=== PATIENT | female | born 1965 | race Two or more races ===

== ENCOUNTER → 2020-02-18 12:34 | Outpatient (BNVA) | payer MEDICAID, SELFPAY | PROVIDERS: PCP Internal Medicine; Referring Provider Internal Medicine; Visit Provider Nurse Practitioner | DX: K59.04 Chronic idiopathic constipation (principal); K21.9 Gastro-esophageal reflux disease without esophagitis; K31.84 Gastroparesis | CPT/HCPCS: 99213 ==

== ENCOUNTER 2020-02-19 18:49 | Observation (INO) | payer MEDICAID, SELFPAY ==
[2020-02-19 19:08] VITALS: BP 141/91; PULSE 81; RESP 18; TEMP 37.1; O2SAT 98; BMI 38.9
[2020-02-19] MEDS: ondansetron HCL 4 MG/2 ML VIAL IVPUSH (20:58)
[2020-02-19 21:00] VITALS: BP 172/90; PULSE 65; RESP 18; TEMP 36.6; O2SAT 99
[2020-02-19 21:01] LABS: MANUAL DIFF FLAG NO
[2020-02-19 21:02] LABS: Basophils Percent Auto 0.4 % (0-2); Eosinophils Percent Auto 0.2 % (0-4); Hematocrit 45.1 % (37-47); Hemoglobin 14.8 g/dl (12.0-16.0); Imm Gran Abs Auto 0.04 X10*3/uL (0.00-0.03); Imm Gran Pct Auto 0.4 % (0.0-0.4); Lymphocytes Absolute Auto 1.8 X10*3/uL (1.2-4.9); Lymphocytes Percent Auto 17.1 % (20-40); Mean Corpuscular HGB Conc 32.8 g/dl (31.0-35.0); Mean Corpuscular Hemoglobin 30.7 pg (27.0-33.0); Mean Corpuscular Volume 93.6 fL (80-98); Mean Platelet Volume 11.6 fL (9.4-12.3); Monocytes Absolute Auto 0.8 X10*3/uL (0.1-1.2); Monocytes Percent Auto 7.6 % (2-11); Neutrophils Absolute Auto 7.7 X10*3/uL (2.0-8.3); Neutrophils Percent Auto 74.3 % (45-73); Platelet Count 227 X10*3/uL (160-400); Red Blood Count 4.82 X10*6/uL (4.20-5.50); Red Cell Distribution Width 13.6 % (11.0-16.0); White Blood Count 10.4 X10*3/uL (4.8-10.8)
--- NOTE | 2020-02-19 21:03 | CT_ITS ---
EXAMINATION: CT ABDOMEN AND PELVIS WITHOUT CONTRAST CLINICAL INFORMATION: 52-year-old female with left-sided flank pain. COMPARISON: Renal ultrasound 01/03/[address] abdomen pelvis 05/02/2019 TECHNIQUE: Multidetector volumetric imaging was performed from the superior aspect of the liver through the pubic symphysis. Sagittal and coronal reformatted images were obtained on the technologist's workstation. This CT examination was performed using dose optimization techniques as appropriate, variously including the following: *Automated exposure control *Adjustment of mA and/or kV according to patient size (this includes techniques or standardized protocols for targeted exams where dose is matched to indication/reason for exam; i.e. extremities or head) *Use of iterative reconstruction technique DLP: 818 mGy-cm FINDINGS: Visualized lung bases demonstrate mild dependent atelectasis. The liver is normal in size but demonstrates diffusely decreased attenuation. The gallbladder is normal in appearance. The pancreas, spleen and adrenal glands are unremarkable. There is mild to moderate left-sided hydronephrosis secondary to a 9 mm calculus located within the proximal left ureter. This stone demonstrates Hounsfield units of approximately 1200 and is located approximately 17 cm from the posterior skin surface. There are a few other calcifications within the left kidney, the largest located within the midpole and measures 1.4 cm. There are several 2 to 3 mm nonobstructing calculi of the right kidney. There is no right-sided hydronephrosis. Normal caliber loops of small and large bowel. Normal appendix. Surgical changes consistent with prior umbilical hernia repair. Nonaneurysmal abdominal aorta which demonstrates mild to moderate atherosclerotic disease. The bladder is normally distended and normal in appearance. Unremarkable CT appearance of the uterus. No gross free pelvic fluid. No inguinal lymphadenopathy. Moderate to severe degenerative changes of the spine. CT/CT abdomen pelvis wo con IMPRESSION: 1. Mild to moderate left-sided hydronephrosis secondary to a 9 mm calculus within the proximal left ureter. 2. Nonobstructing bilateral renal calculi. No right-sided hydronephrosis. 3. Diffusely decreased liver attenuation suggesting hepatic steatosis. Correlation with liver enzymes recommended.
--- NOTE | 2020-02-19 21:03 | ED.ABDPAIN ---
HPI - Abdominal Pain General Chief Complaint: Abdominal Pain Stated Complaint: flank pain Time Seen by Provider: 02/19/20 21:03 Source: patient and compressor battery pellets Mode of arrival: ambulatory Limitations: no limitations History of Present Illness MD elicited complaint: flank pain Pertinent past history: kidney stones Onset (ago): day(s) (1) Pain Consistency: constant Location: L flank Severity: severe Quality: stabbing Radiation: L flank Migration to: suprapubic Exacerbating factors: nothing Relieving factors: nothing Context: history of similar episodes Associated symptoms: nausea and vomiting Related Data Home Medications Medication Instructions Recorded Confirmed bisacodyl 5 mg tablet,delayed 10 mg PO BEDTIME 02/15/20 02/15/20 release lansoprazole 30 mg capsule,delayed 30 mg PO DAILY 02/15/20 02/15/20 release magnesium oxide 400 mg PO DAILY 02/15/20 02/15/20 metoclopramide HCl 5 mg tablet 5 mg PO TIDWMEAL tab 02/15/20 02/15/20 Previous Rx's Medication Instructions Recorded linaclotide 290 mcg capsule 290 mcg PO DAILY 30 Days #30 cap 02/05/20 Allergies Allergy/AdvReac Type Severity Reaction Status Date / Time cephalexin [From KEFLEX] Allergy Intermediate RASH Verified 02/19/20 19:07 Penicillins Allergy Intermediate RASH Verified 02/19/20 19:07 diazepam [From VALIUM] Allergy Unknown ? REACTION Verified 02/19/20 19:07 penicillin V Allergy Unknown rash Verified 02/19/20 19:07 Jakob Rosenthal Allergy Unknown rash Uncoded 06/15/19 00:00 Review of Systems Review of Systems Constitutional : No Weight loss, No Fever, No Chills ENT/Mouth : No sore throat, No Rhinorrhea Eyes: No Swelling, No Redness Cardiovascular : No Chest Pain, No SOB, NoEdema Respiratory : No Cough, No Sputum, No Wheezing Gastrointestinal : Positive Nausea, Positive Vomiting, no Diarrhea, positive abdominal Pain, No Hematochezia, No Melena Genitourinary : No Dysuria, No Urinary Frequency, No Hematuria, pos Urgency Musculoskeletal : No joint pain, No Myalgias, No Joint Swelling Skin : No Skin Lesions, No rash Neuro : No Weakness, No Numbness, No Dizziness, No Headache Psych : No Anxiety/Panic, No Depression Heme/Lymph: No Bruising, No Lymphadenopathy Endocrine : No Polyuria, No Polydipsia All other systems reviewed and are negative. Physical Exam Vital Signs: Vital Signs: Vital Signs Temp Pulse Resp BP Pulse Ox 02/19/20 22:03 69 20 145/93 H 98 02/19/20 22:01 18 02/19/20 21:09 18 02/19/20 21:00 97.8 F 65 18 172/90 H 99 02/19/20 19:08 98.7 F 81 18 141/91 H 98 Body Mass Index 38.9 Appearance: Alert. Oriented X3. Mild acute distress. In pain Eyes: Pupils equal, round and reactive to light. ENT: Pharynx normal. Neck: Normal inspection. Neck supple. CVS: Normal heart rate and rhythm. Pulses normal. Respiratory: No respiratory distress. Breath sounds normal. Abdomen: Soft and L flank ttp Skin: Skin warm and dry. Normal skin color. Normal skin turgor. Extremities: No lower extremity edema. No calf ttp Neuro: Oriented X 3. No motor deficit. No sensory deficit. Course Course Course Narrative: L sided 9mm prox left ureter stone - moderate hydro, still in pain repeat dilaudid stone will consult Dr. Medrano for likely admit. Dr. Medrano to admit MDM - Abdominal Pain MDM Narrative Medical decision making narrative: 54 yo female with hx of renal colic s/p lithotripsy here with L flank pain that feels like a stone at this time will need labs, UA, IV morphine for pain, CT scan for renal colic dispo per results and findings Differential Diagnosis Differential diagnosis: Likely calculus of kidney and diverticulitis Lab Data Result diagrams: 02/19/20 20:52 02/19/20 20:52 Labs: Lab Results 02/19/20 02/19/20 02/19/20 Range/Units 20:52 20:52 20:52 WBC 10.4 (4.8-10.8) X10*3/uL RBC 4.82 (4.20-5.50) X10*6/uL Hgb 14.8 (12.0-16.0) g/dl Hct 45.1 (37-47) % MCV 93.6 (80-98) fL MCH 30.7 (27.0-33.0) pg MCHC 32.8 (31.0-35.0) g/dl RDW 13.6 (11.0-16.0) % Plt Count 227 (160-400) X10*3/uL MPV 11.6 (9.4-12.3) fL Immature Gran % (Auto) 0.4 (0.0-0.4) % Neut % (Auto) 74.3 H (45-73) % Lymph % (Auto) 17.1 L (20-40) % [place] % (Auto) 7.6 (2-11) % Eos % (Auto) 0.2 (0-4) % Baso % (Auto) 0.4 (0-2) % Lymph # (Auto) 1.8 (1.2-4.9) X10*3/uL [place] # (Auto) 0.8 (0.1-1.2) X10*3/uL Eos # (Auto) 0.0 (0.0-0.4) X10*3/uL Baso # (Auto) 0.0 (0.0-0.2) X10*3/uL Abs Immat Gran (auto) 0.04 H (0.00-0.03) X10*3/uL Absolute Neuts (auto) 7.7 (2.0-8.3) X10*3/uL Absolute Nucleated RBC 0.000 (0.0-0.012) X10*3/uL Nucleated RBC % (auto) 0.0 (0.0-0.2) /100WBC Hold Blue Top SEE NOTE Sodium 142 (135-145) mmol/L Potassium 3.7 (3.3-5.1) mmol/l Chloride 105 (96-108) mmol/L Carbon Dioxide 26 (22-29) mmol/L Anion Gap 15 (12-20) BUN 14 (9-16) mg/dL Creatinine 1.35 (0.5-1.4) mg/dL Estim Creat Clear Calc 54.2 Estimated GFR 41 Random Glucose 165 H (60-115) mg/dL Calcium 8.7 (8.4-10.2) mg/dL Total Bilirubin 0.6 (0.0-1.0) mg/dL Direct Bilirubin (0.0-0.5) mg/dL AST 41 H (5-31) U/L ALT 59 H (0-31) U/L Alkaline Phosphatase 101 (39-117) U/L Total Protein 6.9 (6.5-8.0) g/dL Albumin 4.4 (3.5-5.0) g/dL Lipase 45 (8-78) U/L Urine Color Urine Appearance Urine pH (5.0-8.0) Ur Specific [place] (1.005-1.025) Urine Protein (NEG-TRACE) MG/DL Urine Glucose (UA) (NEG) MG/DL Urine Ketones (NEG) MG/DL Urine Blood (NEG) Urine Nitrite (NEG) Ur Leukocyte Esterase (NEG) Urine RBC (0) /HPF Urine WBC (0-4) /HPF Ur Squamous Epith Cells /LPF Urine Bacteria /LPF Urine Mucus /LPF 02/19/20 02/19/20 Range/Units 20:52 21:00 WBC (4.8-10.8) X10*3/uL RBC (4.20-5.50) X10*6/uL Hgb (12.0-16.0) g/dl Hct (37-47) % MCV (80-98) fL MCH (27.0-33.0) pg MCHC (31.0-35.0) g/dl RDW (11.0-16.0) % Plt Count (160-400) X10*3/uL MPV (9.4-12.3) fL Immature Gran % (Auto) (0.0-0.4) % Neut % (Auto) (45-73) % Lymph % (Auto) (20-40) % [place] % (Auto) (2-11) % Eos % (Auto) (0-4) % Baso % (Auto) (0-2) % Lymph # (Auto) (1.2-4.9) X10*3/uL [place] # (Auto) (0.1-1.2) X10*3/uL Eos # (Auto) (0.0-0.4) X10*3/uL Baso # (Auto) (0.0-0.2) X10*3/uL Abs Immat Gran (auto) (0.00-0.03) X10*3/uL Absolute Neuts (auto) (2.0-8.3) X10*3/uL Absolute Nucleated RBC (0.0-0.012) X10*3/uL Nucleated RBC % (auto) (0.0-0.2) /100WBC Hold Blue Top Sodium (135-145) mmol/L Potassium (3.3-5.1) mmol/l Chloride (96-108) mmol/L Carbon Dioxide (22-29) mmol/L Anion Gap (12-20) BUN (9-16) mg/dL Creatinine (0.5-1.4) mg/dL Estim Creat Clear Calc Estimated GFR Random Glucose (60-115) mg/dL Calcium (8.4-10.2) mg/dL Total Bilirubin 0.5 (0.0-1.0) mg/dL Direct Bilirubin 0.2 (0.0-0.5) mg/dL AST 42 H (5-31) U/L ALT 59 H (0-31) U/L Alkaline Phosphatase 101 (39-117) U/L Total Protein 6.8 (6.5-8.0) g/dL Albumin 4.3 (3.5-5.0) g/dL Lipase (8-78) U/L Urine Color YELLOW Urine Appearance CLEAR Urine pH 5.5 (5.0-8.0) Ur Specific [place] >= 1.030 H (1.005-1.025) Urine Protein NEG (NEG-TRACE) MG/DL Urine Glucose (UA) NEG (NEG) MG/DL Urine Ketones NEG (NEG) MG/DL Urine Blood 1+ H (NEG) Urine Nitrite NEG (NEG) Ur Leukocyte Esterase NEG (NEG) Urine RBC 10-14 H (0) /HPF Urine WBC 5-9 H (0-4) /HPF Ur Squamous Epith Cells 1+ /LPF Urine Bacteria 2+ /LPF Urine Mucus 2+ /LPF Critical Care Time Critical Care Time Critical Care Time: Yes Total Critical Care Time: 35 Attestation: repeat IV pain medications, consult to Urology I personally attest to this time spent taking care of the patient Discharge Plan Discharge Clinical Impression: Ureterolithiasis Patient Disposition: Admitted As Inpatient [facility] Past Medical History Attestation statement: The following information was validated with the patient. Medical History (Updated 02/19/20 @ 22:22 by Ofe Muñoz DO) Fibromyalgia Osteoarthritis Renal colic Surgical History (Updated 02/19/20 @ 21:10 by Ofe Muñoz DO) H/O lithotripsy History of esophagogastroduodenoscopy (EGD) Hx of colonoscopy Family History Family History (Updated 02/18/20 @ 12:45 by CATY Quigley) Father Diabetes mellitus Hypercholesteremia Heart attack HTN (hypertension) Mother Diabetes mellitus HTN (hypertension) Heart attack Hypercholesteremia Cardiovascular disease Brother Liver cancer Brother Pancreatic cancer Brother Lymphoma Sister Cervical cancer Sister Cirrhosis of liver Family/Other Cancer Family/Other Ovarian cancer Social History Social History Alcohol intake: never Smoking Status: Never smoker Smoked in Last 30 Days: No Use of substances other than those prescribed or required for medical reasons: No Advance Directives: No Advance Directives Information Provided: Yes
[2020-02-19 21:09] VITALS: RESP 18
[2020-02-19 21:09] LABS: Glucose Urine UA NEG (NEG); Leukocyte Esterase Urine NEG (NEG); Nitrite Urine NEG (NEG); PH 5.5 (5.0-8.0); Specific Gravity - Urine >= 1.030 (1.005-1.025); Urine Blood 1+ (NEG); Urine Ketones NEG (NEG); Urine Protein NEG (NEG-TRACE)
[2020-02-19] MEDS: Ketorolac Tromethamine 30 MG/ML VIAL IVPUSH (21:09)
[2020-02-19] MEDS: Morphine Sulfate 4 MG/ML CARTRIDGE IVPUSH (21:09)
[2020-02-19 21:18] LABS: Appearance Urine CLEAR; Bacteria Urine 2+ /LPF; Color Urine YELLOW; Mucus Urine 2+ /LPF; Squamous Epithelial Cell Urine 1+ /LPF; UACC CULT YES
[2020-02-19 21:30] LABS: Alanine Aminotransferase 59 U/L (0-31); Albumin Level 4.3 g/dL (3.5-5.0); Albumin Level 4.4 g/dL (3.5-5.0); Alkaline Phosphatase 101 U/L (39-117); Anion Gap 15 (12-20); Aspartate Amino Transferase 41 U/L (5-31); Aspartate Amino Transferase 42 U/L (5-31); Bilirubin Direct 0.2 mg/dL (0.0-0.5); Bilirubin Total 0.5 mg/dL (0.0-1.0); Bilirubin Total 0.6 mg/dL (0.0-1.0); Blood Urea Nitrogen 14 mg/dL (9-16); Calcium 8.7 mg/dL (8.4-10.2); Carbon Dioxide 26 mmol/L (22-29); Chloride 105 mmol/L (96-108); Creatinine Clr Calc Pharmacy 54.2; Estimated Glomerular Filt Rate 41; Glucose Random 165 mg/dL (60-115); Lipase 45 U/L (8-78); Potassium 3.7 mmol/l (3.3-5.1); Sodium 142 mmol/L (135-145); Total Protein 6.8 g/dL (6.5-8.0); Total Protein 6.9 g/dL (6.5-8.0)
[2020-02-19 22:01] VITALS: RESP 18
[2020-02-19] MEDS: HYDROmorphone HCl 1 MG/ML SYRINGE IVPUSH ×2 (22:01→23:36)
[2020-02-19 22:03] VITALS: BP 145/93; PULSE 69; RESP 20; O2SAT 98
[2020-02-19 23:36] VITALS: BP 139/85; PULSE 91; RESP 16; O2SAT 98
[2020-02-20] VITALS (8 sets, daily range): BP systolic 119–154; BP diastolic 75–89; PULSE 72–92; RESP 16–20; TEMP 36–37.1; O2SAT 94–99; BMI 38.9
[2020-02-20 00:26] LABS: SARS COV2 PCR INHOUSE NEGATIVE (Negative)
--- NOTE | 2020-02-20 03:03 | PC.NURSE ---
Pt states she is comfortable, sleeping prior to this rn awakening her. awaiting room assigment, pt aware and agreeable to plan of care.
[2020-02-20] MEDS: Morphine Sulfate 2 MG/ML CARTRIDGE IVPUSH (08:08)
[2020-02-20] MEDS: ondansetron HCL 4 MG/2 ML VIAL IVPUSH (08:08)
--- NOTE | 2020-02-20 08:38 | PC.NURSE ---
dr. clark at bedside pt aware of plan of care.
--- NOTE | 2020-02-20 08:40 | PC.NURSE ---
ATTEMPTED TO CALL REPORT, WAITING FOR
--- NOTE | 2020-02-20 08:41 | P.HPGS_ITS ---
History of Present Illness History of Present Illness Chief complaint: flank pain/LEFT RENAL STONE\ Narrative: Milady Ruiz is a 54 year old female - 48 hour history of nausea and vomiting. Left-sided flank pain. Unable to be maintained with oral pain medications in the emergency room. Known stone hist ory. Will be admitted for stone intervention. Pain 8/10. Minimal relief. CT scan 9 mm proximal left ureteric stone. 9 mm upper pole stone. Review of Systems Constitutional: Constitutional: Denies chills and Denies fever(s) Cardiovascular: Cardiovascular: Reports no additional cardiovascular complaints and Denies syncope Respiratory: Respiratory: Denies cough Gastrointestinal: Gastrointestinal: Reports abdominal pain, Reports GI cramping, Denies heartburn, Reports nausea and Reports vomiting Genitourinary: Genitourinary: Reports as per HPI and Denies change in libido Neurologic: Denies syncope Psychiatric: Psychiatric: Denies change in libido Endocrine: Endocrine: Denies change in libido [facility] Past Medical History Medical History (Updated 02/20/20 @ 08:45 by Alan Medrano MD) Fibromyalgia Osteoarthritis Renal colic Family History Family History (Updated 02/18/20 @ 12:45 by CATY Quigley) Father Diabetes mellitus Hypercholesteremia Heart attack HTN (hypertension) Mother Diabetes mellitus HTN (hypertension) Heart attack Hypercholesteremia Cardiovascular disease Brother Liver cancer Brother Pancreatic cancer Brother Lymphoma Sister Cervical cancer Sister Cirrhosis of liver Family/Other Cancer Family/Other Ovarian cancer Surgical History Surgical History (Updated 02/19/20 @ 21:10 by Ofe Muñoz DO) H/O lithotripsy History of esophagogastroduodenoscopy (EGD) Hx of colonoscopy Social History Social History Alcohol intake: never Smoking Status: Never smoker Smoked in Last 30 Days: No Use of substances other than those prescribed or required for medical reasons: No Advance Directives: No Advance Directives Information Provided: Yes Meds Allergies Allergy/AdvReac Type Severity Reaction Status Date / Time cephalexin [From KEFLEX] Allergy Intermediate RASH Verified 02/19/20 19:07 Penicillins Allergy Intermediate RASH Verified 02/19/20 19:07 diazepam [From VALIUM] Allergy Unknown ? REACTION Verified 02/19/20 19:07 penicillin V Allergy Unknown rash Verified 02/19/20 19:07 Jakob Rosenthal Allergy Unknown rash Uncoded 06/15/19 00:00 Home Medications Medication Instructions Recorded Confirmed Type metoclopramide HCl 5 mg tablet 5 mg PO TIDWMEAL tab 02/15/20 02/19/20 History cholecalciferol (vitamin D3) 25 mcg PO DAILY 02/19/20 02/19/20 History [Vitamin D3] clonazepam 1 mg PO BID 02/19/20 02/19/20 History duloxetine [Cymbalta] 60 mg PO DAILY 02/19/20 02/19/20 History fluticasone propionate 2 spray INTRANASAL DAILY 02/19/20 02/19/20 History folic acid 1 mg PO DAILY 02/19/20 02/19/20 History lansoprazole [Prevacid] 30 mg PO DAILY 02/19/20 02/19/20 History linaclotide [Linzess] 290 mcg PO QAM 02/19/20 02/19/20 History loratadine 10 mg PO DAILY 02/19/20 02/19/20 History magnesium 15 mg PO BID 02/19/20 02/19/20 History meclizine 12.5 mg PO TID PRN 02/19/20 02/19/20 History multivitamin [Multi-Vitamin] 1 tab PO DAILY 02/19/20 02/19/20 History quetiapine [Seroquel] 100 mg PO BID 02/19/20 02/19/20 History topiramate [Topamax] 100 mg PO BID 02/19/20 02/19/20 History zinc gluconate 30 mg PO DAILY 02/19/20 02/19/20 History Physical Exam Vital Signs: Vital Signs: Vital Signs Temp Pulse Resp BP Pulse Ox 02/20/20 08:08 16 02/20/20 02:46 98.7 F 92 16 119/78 97 02/19/20 23:36 91 16 139/85 98 02/19/20 22:03 69 20 145/93 H 98 02/19/20 22:01 18 02/19/20 21:09 18 02/19/20 21:00 97.8 F 65 18 172/90 H 99 02/19/20 19:08 98.7 F 81 18 141/91 H 98 Body Mass Index 38.9 Const: General: cooperative, healthy appearing, comfortable and no acute distress Orientation/consciousness: patient oriented x3 HENMT: Face and sinus: Yes normal facial exam Mouth: moist mucous membranes Neck: Neck: Yes normal visual inspection, Yes full ROM and Yes trachea midline Chest: Chest palpation & inspection: normal inspection of the chest Resp: Effort & Inspection: normal respiratory effort, able to speak in complete sentences and no respiratory distress GI: Inspection: Yes normal to inspection Back/Spine/Pelvis: Cervical Spine: normal cervical lordosis Thoracic/Lumbar Spine: thoracic and lumbar spine normal to inspection Skin: General skin exam: no rashes or lesions noted Neuro: General: patient oriented x3, gait normal, tone normal and moves all extremities Extrem: General: Yes normal to inspection and Yes capillary refill normal Results Results Labs: Short CBC 02/19/20 Range/Units 20:52 WBC 10.4 (4.8-10.8) X10*3/uL Hgb 14.8 (12.0-16.0) g/dl Hct 45.1 (37-47) % Plt Count 227 (160-400) X10*3/uL BMP 02/19/20 20:52 Sodium 142 Potassium 3.7 Chloride 105 Carbon Dioxide 26 BUN 14 Creatinine 1.35 Calcium 8.7 Liver Function 02/19/20 02/19/20 Range/Units 20:52 20:52 Total Bilirubin 0.6 0.5 (0.0-1.0) mg/dL Direct Bilirubin 0.2 (0.0-0.5) mg/dL AST 41 H 42 H (5-31) U/L ALT 59 H 59 H (0-31) U/L Alkaline Phosphatase 101 101 (39-117) U/L Albumin 4.4 4.3 (3.5-5.0) g/dL Urine 02/19/20 Range/Units 21:00 Urine Color YELLOW Urine Appearance CLEAR Urine pH 5.5 (5.0-8.0) Ur Specific [place] >= 1.030 H (1.005-1.025) Urine Protein NEG (NEG-TRACE) MG/DL Urine Glucose (UA) NEG (NEG) MG/DL There is mild to moderate left-sided hydronephrosis secondary to a 9 mm calculus located within the proximal left ureter. This stone demonstrates Hounsfield units of approximately 1200 and is located approximately 17 cm from the posterior skin surface. There are a few other calcifications within the left kidney, the largest located within the midpole and measures 1.4 cm. Assessment and Plan (1) Ureterolithiasis: Problem details: 9 mm left proximal stone. 1.4 cm upper pole stone. Status: Acute Discussed with patient. plan for cystoscopy, left retrograde and stent placement remain NPO
--- NOTE | 2020-02-20 09:12 | PC.NURSE ---
PT COMPLAINING OF PAIN. RN AWARE.
--- NOTE | 2020-02-20 09:33 | PC.NURSE ---
REPORT CALLED TO CIARA BASURTO
[2020-02-20] MEDS: Ketorolac Tromethamine 15 MG/ML VIAL IV (10:30)
--- NOTE | 2020-02-20 10:39 | PM.IMCN ---
History of Present Illness Data of Consult Service Date: 02/20/20 <Himanshu Fu MD - Last Filed: 02/28/20 13:59> Requesting physician: Alan Medrano <Himanshu Fu MD - Last Filed: 02/28/20 13:59> Primary Care Provider: Jayda Mcelroy MD <Himanshu Fu MD - Last Filed: 02/28/20 13:59> HPI Reason for consult: Medical management <Himanshu Fu MD - Last Filed: 02/28/20 13:59> 54 year female with class 2 obesity, GERD, gastroparesis, history of kidney stone who presented with left sided abdominal pain of a day duration. Pain is severe 02/01. CT of abdomen show mild left sided hydronephrosis and 9 mm calculus within the proximal left ureter. Urology plan for cystoscopy, left retrograde and stent placement. <Himanshu Fu MD - Last Filed: 02/28/20 13:59> Review of Systems Cardiovascular: Cardiovascular: Denies syncope <Himanshu Fu MD - Last Filed: 02/28/20 13:59> Genitourinary: Comments: left flank pain <Himanshu Fu MD - Last Filed: 02/28/20 13:59> Neurologic: Denies syncope <Himanshu Fu MD - Last Filed: 02/28/20 13:59> COUNT INCLUDES THE [facility] Medical History: Medical History Class 2 obesity Fibromyalgia GERD (gastroesophageal reflux disease) Osteoarthritis Renal colic <Himanshu Fu MD - Last Filed: 02/28/20 13:59> Family History: Family History Father Diabetes mellitus Hypercholesteremia Heart attack HTN (hypertension) Mother Diabetes mellitus HTN (hypertension) Heart attack Hypercholesteremia Cardiovascular disease Brother Liver cancer Brother Pancreatic cancer Brother Lymphoma Sister Cervical cancer Sister Cirrhosis of liver Family/Other Cancer Family/Other Ovarian cancer <Himanshu Fu MD - Last Filed: 02/28/20 13:59> Surgical History: Surgical History H/O lithotripsy History of esophagogastroduodenoscopy (EGD) Hx of colonoscopy <Himanshu Fu MD - Last Filed: 02/28/20 13:59> Social History: Social History Household Members: Family Alcohol intake: never Smoking Status: Former smoker Second Hand Smoke Exposure: No <Himanshu Fu MD - Last Filed: 02/28/20 13:59> Meds Allergies/Adverse reactions: Allergies Allergy/AdvReac Type Severity Reaction Status Date / Time cephalexin [From KEFLEX] Allergy Intermediate RASH Verified 02/19/20 19:07 Penicillins Allergy Intermediate RASH Verified 02/19/20 19:07 diazepam [From VALIUM] Allergy Unknown ? REACTION Verified 02/19/20 19:07 penicillin V Allergy Unknown rash Verified 02/19/20 19:07 Jakob Rosenthal Allergy Unknown rash Uncoded 06/15/19 00:00 <Himanshu Fu MD - Last Filed: 02/28/20 13:59> Home medications: Home Medications Medication Instructions Recorded Confirmed Type metoclopramide HCl 5 mg tablet 5 mg PO TIDWMEAL tab 02/15/20 02/19/20 History Linzess 290 mcg PO QAM 02/19/20 02/19/20 History cholecalciferol (vitamin D3) 25 mcg PO DAILY 02/19/20 02/19/20 History [Vitamin D3] clonazepam 1 mg PO BID 02/19/20 02/19/20 History duloxetine [Cymbalta] 60 mg PO DAILY 02/19/20 02/19/20 History fluticasone propionate 2 spray INTRANASAL DAILY 02/19/20 02/19/20 History folic acid 1 mg PO DAILY 02/19/20 02/19/20 History loratadine 10 mg PO DAILY 02/19/20 02/19/20 History magnesium 15 mg PO BID 02/19/20 02/19/20 History meclizine 12.5 mg PO TID PRN 02/19/20 02/19/20 History multivitamin 1 tab PO DAILY 02/19/20 02/19/20 History quetiapine [Seroquel] 100 mg PO BID 02/19/20 02/19/20 History topiramate [Topamax] 100 mg PO BID 02/19/20 02/19/20 History zinc gluconate 30 mg PO DAILY 02/19/20 02/19/20 History <Himanshu Fu MD - Last Filed: 02/28/20 13:59> Physical Exam Vital Signs and Narrative: Vital Signs: Last Vital Signs Temp 96.8 F 02/20/20 08:00 Pulse 83 02/20/20 08:00 Resp 16 02/20/20 08:08 BP 139/89 02/20/20 08:00 Pulse Ox 98 02/20/20 08:00 <Himanshu Fu MD - Last Filed: 02/28/20 13:59> Results Labs Labs: Laboratory Tests 02/19/20 02/19/20 02/19/20 20:52 20:52 20:52 WBC 10.4 RBC 4.82 Hgb 14.8 Hct 45.1 MCV 93.6 MCH 30.7 MCHC 32.8 RDW 13.6 Plt Count 227 MPV 11.6 Immature Gran % (Auto) 0.4 Neut % (Auto) 74.3 H Lymph % (Auto) 17.1 L [place] % (Auto) 7.6 Eos % (Auto) 0.2 Baso % (Auto) 0.4 Lymph # (Auto) 1.8 [place] # (Auto) 0.8 Eos # (Auto) 0.0 Baso # (Auto) 0.0 Abs Immat Gran (auto) 0.04 H Absolute Neuts (auto) 7.7 Absolute Nucleated RBC 0.000 Nucleated RBC % (auto) 0.0 Hold Blue Top SEE NOTE Sodium 142 Potassium 3.7 Chloride 105 Carbon Dioxide 26 Anion Gap 15 BUN 14 Creatinine 1.35 Estim Creat Clear Calc 54.2 Estimated GFR 41 Random Glucose 165 H Calcium 8.7 Total Bilirubin 0.6 Direct Bilirubin AST 41 H ALT 59 H Alkaline Phosphatase 101 Total Protein 6.9 Albumin 4.4 Lipase 45 Urine Color Urine Appearance Urine pH Ur Specific [place] Urine Protein Urine Glucose (UA) Urine Ketones Urine Blood Urine Nitrite Ur Leukocyte Esterase Urine RBC Urine WBC Ur Squamous Epith Cells Urine Bacteria Urine Mucus Coronavirus (PCR) 02/19/20 02/19/20 02/19/20 20:52 21:00 23:27 WBC RBC Hgb Hct MCV MCH MCHC RDW Plt Count MPV Immature Gran % (Auto) Neut % (Auto) Lymph % (Auto) [place] % (Auto) Eos % (Auto) Baso % (Auto) Lymph # (Auto) [place] # (Auto) Eos # (Auto) Baso # (Auto) Abs Immat Gran (auto) Absolute Neuts (auto) Absolute Nucleated RBC Nucleated RBC % (auto) Hold Blue Top Sodium Potassium Chloride Carbon Dioxide Anion Gap BUN Creatinine Estim Creat Clear Calc Estimated GFR Random Glucose Calcium Total Bilirubin 0.5 Direct Bilirubin 0.2 AST 42 H ALT 59 H Alkaline Phosphatase 101 Total Protein 6.8 Albumin 4.3 Lipase Urine Color YELLOW Urine Appearance CLEAR Urine pH 5.5 Ur Specific [place] >= 1.030 H Urine Protein NEG Urine Glucose (UA) NEG Urine Ketones NEG Urine Blood 1+ H Urine Nitrite NEG Ur Leukocyte Esterase NEG Urine RBC 10-14 H Urine WBC 5-9 H Ur Squamous Epith Cells 1+ Urine Bacteria 2+ Urine Mucus 2+ Coronavirus (PCR) NEGATIVE <Himanshu Fu MD - Last Filed: 02/28/20 13:59> Assessment and Plan (1) GERD (gastroesophageal reflux disease): Status: Acute <Himanshu Fu MD - Last Filed: 02/28/20 13:59> 54/F with kidney stone 1. Kidney stone--cystoscopy, left retrograde and stent placement by uro. Pain management 2. Fibromyalgia--continue home meds 3. GERD not on meds 4. Class 2 obesity--advise weigh loss. <Himanshu Fu MD - Last Filed: 02/28/20 13:59>
[2020-02-20] MEDS: levoFLOXacin 500 MG TABLET PO (12:14)
--- NOTE | 2020-02-20 12:48 | HO.ANESPROP2 ---
[facility] Past Medical History Medical History Class 2 obesity Fibromyalgia GERD (gastroesophageal reflux disease) Osteoarthritis Renal colic Family History Family History Father Diabetes mellitus Hypercholesteremia Heart attack HTN (hypertension) Mother Diabetes mellitus HTN (hypertension) Heart attack Hypercholesteremia Cardiovascular disease Brother Liver cancer Brother Pancreatic cancer Brother Lymphoma Sister Cervical cancer Sister Cirrhosis of liver Family/Other Cancer Family/Other Ovarian cancer Surgical History Surgical History H/O lithotripsy History of esophagogastroduodenoscopy (EGD) Hx of colonoscopy Social History Social History Household Members: Family Alcohol intake: never Smoking Status: Former smoker Meds Allergies Allergy/AdvReac Type Severity Reaction Status Date / Time cephalexin [From KEFLEX] Allergy Intermediate RASH Verified 02/19/20 19:07 Penicillins Allergy Intermediate RASH Verified 02/19/20 19:07 diazepam [From VALIUM] Allergy Unknown ? REACTION Verified 02/19/20 19:07 penicillin V Allergy Unknown rash Verified 02/19/20 19:07 Jakob Rosenthal Allergy Unknown rash Uncoded 06/15/19 00:00 Home Medications Medication Instructions Recorded Confirmed Type metoclopramide HCl 5 mg tablet 5 mg PO TIDWMEAL tab 02/15/20 02/19/20 History cholecalciferol (vitamin D3) 25 mcg PO DAILY 02/19/20 02/19/20 History [Vitamin D3] clonazepam 1 mg PO BID 02/19/20 02/19/20 History duloxetine [Cymbalta] 60 mg PO DAILY 02/19/20 02/19/20 History fluticasone propionate 2 spray INTRANASAL DAILY 02/19/20 02/19/20 History folic acid 1 mg PO DAILY 02/19/20 02/19/20 History lansoprazole [Prevacid] 30 mg PO DAILY 02/19/20 02/19/20 History linaclotide [Linzess] 290 mcg PO QAM 02/19/20 02/19/20 History loratadine 10 mg PO DAILY 02/19/20 02/19/20 History magnesium 15 mg PO BID 02/19/20 02/19/20 History meclizine 12.5 mg PO TID PRN 02/19/20 02/19/20 History multivitamin [Multi-Vitamin] 1 tab PO DAILY 02/19/20 02/19/20 History quetiapine [Seroquel] 100 mg PO BID 02/19/20 02/19/20 History topiramate [Topamax] 100 mg PO BID 02/19/20 02/19/20 History zinc gluconate 30 mg PO DAILY 02/19/20 02/19/20 History Exam Exam Date and Time: February 20, 2020 1248 Height,Weight and Vital Signs: Height 5 ft 3 in Weight 99.79 kg Last Vital Signs Temp 97.9 F 02/20/20 12:23 Pulse 76 02/20/20 12:23 Resp 20 02/20/20 12:23 BP 141/80 H 02/20/20 12:23 Pulse Ox 98 02/20/20 12:23 Pertinent Lab Results Pertinent Lab Results: Laboratory Tests 02/19/20 02/19/20 02/19/20 20:52 20:52 20:52 WBC 10.4 RBC 4.82 Hgb 14.8 Hct 45.1 MCV 93.6 MCH 30.7 MCHC 32.8 RDW 13.6 Plt Count 227 MPV 11.6 Immature Gran % (Auto) 0.4 Neut % (Auto) 74.3 H Lymph % (Auto) 17.1 L [place] % (Auto) 7.6 Eos % (Auto) 0.2 Baso % (Auto) 0.4 Lymph # (Auto) 1.8 [place] # (Auto) 0.8 Eos # (Auto) 0.0 Baso # (Auto) 0.0 Abs Immat Gran (auto) 0.04 H Absolute Neuts (auto) 7.7 Absolute Nucleated RBC 0.000 Nucleated RBC % (auto) 0.0 Hold Blue Top SEE NOTE Sodium 142 Potassium 3.7 Chloride 105 Carbon Dioxide 26 Anion Gap 15 BUN 14 Creatinine 1.35 Estim Creat Clear Calc 54.2 Estimated GFR 41 Random Glucose 165 H Calcium 8.7 Total Bilirubin 0.6 Direct Bilirubin AST 41 H ALT 59 H Alkaline Phosphatase 101 Total Protein 6.9 Albumin 4.4 Lipase 45 Urine Color Urine Appearance Urine pH Ur Specific [place] Urine Protein Urine Glucose (UA) Urine Ketones Urine Blood Urine Nitrite Ur Leukocyte Esterase Urine RBC Urine WBC Ur Squamous Epith Cells Urine Bacteria Urine Mucus Coronavirus (PCR) 02/19/20 02/19/20 02/19/20 20:52 21:00 23:27 WBC RBC Hgb Hct MCV MCH MCHC RDW Plt Count MPV Immature Gran % (Auto) Neut % (Auto) Lymph % (Auto) [place] % (Auto) Eos % (Auto) Baso % (Auto) Lymph # (Auto) [place] # (Auto) Eos # (Auto) Baso # (Auto) Abs Immat Gran (auto) Absolute Neuts (auto) Absolute Nucleated RBC Nucleated RBC % (auto) Hold Blue Top Sodium Potassium Chloride Carbon Dioxide Anion Gap BUN Creatinine Estim Creat Clear Calc Estimated GFR Random Glucose Calcium Total Bilirubin 0.5 Direct Bilirubin 0.2 AST 42 H ALT 59 H Alkaline Phosphatase 101 Total Protein 6.8 Albumin 4.3 Lipase Urine Color YELLOW Urine Appearance CLEAR Urine pH 5.5 Ur Specific [place] >= 1.030 H Urine Protein NEG Urine Glucose (UA) NEG Urine Ketones NEG Urine Blood 1+ H Urine Nitrite NEG Ur Leukocyte Esterase NEG Urine RBC 10-14 H Urine WBC 5-9 H Ur Squamous Epith Cells 1+ Urine Bacteria 2+ Urine Mucus 2+ Coronavirus (PCR) NEGATIVE Airway Mallampati Class: II TM Dist: >3cm Neck ROM: Full Assessment and Plan Assessment Anesthesia Assessment: Anesthesia Plan Discussed and Chart Reviewed Final Anesthetic Review NPO: Yes ASA Class: III Final Preanesthetic Review: No Changes in Pt Med Stat, Meds/Allgs Chart Reviewed, Consent Obtained/Reviewed and Anes Risks/Benef Reviewed Patient Risk: Intermediate Procedure Risk: Low Assessment/Block/Sedation in SS: Assess/Block/Sedation-SS Anesthetic Plan Anesthetic Plan: GA and MAC: Disposition: Standard PACU
--- NOTE | 2020-02-20 13:03 | MHC.SHP ---
Pre-Procedural Eval Section A The patient is an INPATIENT: Yes Changes since office visit: No Cold of Flu in the past 2 weeks, No New Medical Problems, No Changes in Medication and No Patient answered all questions The History & Physical has been completed within 30 days and I have reviewed it.: Yes Section B Chief Complaint: flank pain/LEFT RENAL STONE\ Allergies: Allergies Allergy/AdvReac Type Severity Reaction Status Date / Time cephalexin [From KEFLEX] Allergy Intermediate RASH Verified 02/19/20 19:07 Penicillins Allergy Intermediate RASH Verified 02/19/20 19:07 diazepam [From VALIUM] Allergy Unknown ? REACTION Verified 02/19/20 19:07 penicillin V Allergy Unknown rash Verified 02/19/20 19:07 Jakob Rosenthal Allergy Unknown rash Uncoded 06/15/19 00:00 Plan Patient has been examined and remains a candidate for the planned procedure
--- NOTE | 2020-02-20 13:15 | FL_ITS ---
EXAMINATION: Intraoperative fluoroscopy CLINICAL INFORMATION: Left stent placement COMPARISON: CT abdomen pelvis 02/19/2020 TECHNIQUE: Intraoperative fluoroscopy was provided for use by Dr. Medrano. A total of 1 image was saved to PACS. A radiologist was not present during imaging. Today's dictation is only for administrative purposes to document intraoperative fluoroscopic usage. TOTAL FLUOROSCOPIC TIME: 43 seconds FL/FL guidance in OR FINDINGS~\^^ Intraoperative fluoroscopy provided for use by Dr. Medrano. Please see operative note for detailed findings.
--- NOTE | 2020-02-20 13:50 | PM.OP ---
Brief Operative Note Date of procedure: 02/20/20 Pre-op diagnosis: left ureteric stone Post-op diagnosis: same Procedure: cysto, left retrograde, left stent placment Implants: 6x24 cm stent Surgeon: Alan Medrano MD Anesthesia: MAC Estimated blood loss (mL): 0 Pathology: none sent Condition: stable Disposition: same day
[2020-02-20] MEDS: Phenazopyridine HCL 100 MG TABLET PO (14:20)
[2020-02-20] MEDS: 0.9 % Sodium Chloride 1,000 ML 80 ML IVCONT (15:01)
--- NOTE | 2020-02-20 15:28 | P.OP_ITS ---
Operative Note Operative Note Narrative: PreOperative Diagnosis: left proximal ureteric stone Post Operative Diagnosis: same Procedure: cystoscopy, retrograde, left stent placem Surgeon: Dr Alan Medrano Anesthesia: sedation Indications for procedure: 54-year-old female. Good proximal left 9 mm stone. 1.4 cm stone and kidney. Recommend stent and discharge. Will plan for definitive therapy following stenting and recovery. Procedure: After informed consent was verified patient brought to the operating placed in supine position. Anesthesia administered per protocol. Patient placed in modified dorsal lithotomy position and prepped and draped in sterile fashion. Safety pause time-out performed. Antibiotics being given. Twenty-one Upper Sor[place] cystoscope inserted per urethra. Both ureteric orifices normal position. Bladder normal in its description. Using a ureteric catheter a retrograde examination was performed on the left side. Filling defects seen in the proximal ureter. Sensor guidewire placed without difficulty. Six Upper [place] by 22 cm stent placed with good coil seen in the renal pelvis and in the bladder. Patient tolerated procedure well was extubated in the operating room and transferred in stable condition to the recovery area. Stents 6 Upper [place] by 22 cm left side double J This is the end of the dictation
--- NOTE | 2022-08-24 12:32 | P.DS_ITS ---
DS: Providers Provider Date of Service: 02/20/20 Primary care physician: Jayda Mcelroy MD Admitting clinician: Alan Medrano DS: Diagnosis Discharge Diagnosis (1) Kidney stones: Status: Acute DS: Summary Hospital Course Hospital Course: underwent stenting and discharge Status at Discharge Functional status at discharge: independent ambulation Overall status at discharge: patient is back to baseline Time Spent with Patient Time attestation: Total time managing care of this patient today ____ minutes. Discharge coordination time: Less than 30 minutes Quality: Safe Use of Opioids Does Pt have an Active Cancer Diagnosis on the Problem List?: No Quality: Stroke Does the patient have a stroke diagnosis?: No Physical Exam Vital Signs: Vital Signs: Last Vital Signs Temp 97 F 02/27/20 10:53 Pulse 71 02/27/20 11:22 Resp 16 02/27/20 11:22 BP 120/68 02/27/20 11:22 Pulse Ox 98 02/27/20 11:22 O2 Del Method Room Air 02/27/20 11:22 BMI result Body Mass Index 38.4 DS: Data Data Completed and Pending Completed studies during hospitalization [Text1]: Procedures Dilation of Left Ureter with Intraluminal Device, Via Natural or Artificial Opening Endoscopic (10/26/21) Extirpation of Matter from Left Ureter, Via Natural or Artificial Opening Endoscopic (10/26/21) Fluoroscopy of Left Kidney, Ureter and Bladder (10/26/21) Discharge Plan Discharge Patient Disposition: Home, Self-Care Referrals: Jayda Patiño MD [Primary Care Provider] - Alan Medrano MD [Physician] - 1 Week (1 week stent removal in office) Discharge Medications: Continued meclizine 12.5 mg Tablet 12.5 mg PO TID PRN (Reason: Dizziness) folic acid 1 mg Tablet 1 mg PO DAILY loratadine 10 mg Tablet 10 mg PO DAILY duloxetine [Cymbalta] 60 mg Capsule,Delayed Release(Dr/Ec) 60 mg PO BID No Action meloxicam 15 mg tablet 15 mg PO DAILY Qty: 30 3RF tramadol 50 mg tablet 50 mg PO Q6H PRN (Reason: pain) Qty: 120 2RF magnesium oxide 400 mg (241.3 mg magnesium) tablet 400 mg PO BID 90 Days Qty: 180 0RF magnesium oxide 400 mg (241.3 mg magnesium) tablet 400 mg PO BID 90 Days Qty: 180 0RF clonazepam 0.5 mg tablet 1 tab PO DAILY PRN (Reason: Anxiety) buspirone 5 mg tablet 5 mg PO DAILY cholecalciferol (vitamin D3) [Vitamin D3] 25 mcg (1,000 unit) capsule 1 cap PO DAILY fluticasone propionate 50 mcg/actuation [place],Suspension 2 spray INTRANASAL DAILY Rx Instructions: administer into each nostril topiramate 50 mg tablet 50 mg PO BID pyridoxine (vitamin B6) 100 mg tablet 100 mg PO DAILY 90 Days Qty: 90 1RF sumatriptan succinate 25 mg tablet 5 mg PO ONCE PRN (Reason: Migraine Headache) hydrochlorothiazide 12.5 mg tablet 12.5 mg PO DAILY sennosides [senna] 8.6 mg tablet 17.2 mg PO BID PRN (Reason: for constipation) 90 Days Qty: 120 1RF allopurinol 100 mg tablet 100 mg PO DAILY amitriptyline 25 mg tablet 25 mg PO BEDTIME doxepin 10 mg capsule 10 mg PO BEDTIME lansoprazole 30 mg capsule,delayed release(DR/EC) 30 mg PO DAILY 90 Days Qty: 90 1RF Linzess 290 mcg capsule 290 mcg PO DAILY 90 Days Qty: 90 1RF metoclopramide HCl 5 mg tablet 5 mg PO .TIDAC 90 Days Qty: 270 1RF Discharge Orders: Discharge Order (Routine); Ordered 02/27/20 Ordered By: Alan Medrano Diet: Advance to usual diet Activity on Discharge: As tolerated Patient Instructions: Lithotripsy (DC) Activity Restrictions/Additional Instructions: MARK 02/28/20 Message left to call md if any issues PMarionRMarta Discharge Date/Time: 02/27/20 11:55
== END 2020-02-20 18:15 | disposition home or self-care (01) ==
LOC: HO.ED 22:25 → HO.IMC 02-20 06:22 → HO.S3 02-20 11:13
PROVIDERS: Admitting Provider Urology; Emergency Provider Emergency Medicine; PCP Internal Medicine; Visit Provider Urology
PROC: (CPT 52332; principal; 2020-02-20 13:00)
DX: N13.2 Hydronephrosis with renal and ureteral calculous obstruction (principal); N23 Unspecified renal colic; K31.84 Gastroparesis; E66.9 Obesity, unspecified; M79.7 Fibromyalgia; K21.9 Gastro-esophageal reflux disease without esophagitis; Z68.38 Body mass index [BMI] 38.0-38.9, adult; Z87.891 Personal history of nicotine dependence; Z20.828 Contact with and (suspected) exposure to other viral communicable diseases; Z88.1 Allergy status to other antibiotic agents; Z88.0 Allergy status to penicillin; Z88.8 Allergy status to other drugs, medicaments and biological substances; Z79.899 Other long term (current) drug therapy
CPT/HCPCS: 52332; 36415; 74176; 80053; 80076; 81001; 82248; 83690; 85025; 87086; 87635; 96374; 96375; 96376; 99218; 99284; 99291; C1758; C1769; C2617; J1170; J1885; J2250; J2270; J2405; J3010; Q9967

== ENCOUNTER 2020-02-27 06:50 | Day surgery (SDC) | payer MEDICAID, SELFPAY ==
--- NOTE | 2020-02-26 09:48 | HO.ANESPROP2 ---
Documented by User: Sol Penn 02/26/20 09:49 HPI - Anesthesia Eval Consult details Narrative: 54yo F for Lithotripsy ESW s/p cysto, stent 02/20/20. Anesth record unavailable [facility] Past Medical History Medical History (Updated 02/27/20 @ 10:16 by Antonina Rollins) Class 2 obesity Fibromyalgia GERD (gastroesophageal reflux disease) Osteoarthritis Renal colic Family History Family History Father Diabetes mellitus Hypercholesteremia Heart attack HTN (hypertension) Mother Diabetes mellitus HTN (hypertension) Heart attack Hypercholesteremia Cardiovascular disease Brother Liver cancer Brother Pancreatic cancer Brother Lymphoma Sister Cervical cancer Sister Cirrhosis of liver Family/Other Cancer Family/Other Ovarian cancer Surgical History Surgical History H/O lithotripsy History of esophagogastroduodenoscopy (EGD) Hx of colonoscopy Social History Social History Household Members: Family Alcohol intake: never Smoking Status: Former smoker Second Hand Smoke Exposure: No Use of substances other than those prescribed or required for medical reasons: No Advance Directives: No Advance Directives Information Provided: No Advance Directives on File: No Meds Allergies Allergy/AdvReac Type Severity Reaction Status Date / Time cephalexin [From KEFLEX] Allergy Intermediate RASH Verified 02/19/20 19:07 Penicillins Allergy Intermediate RASH Verified 02/19/20 19:07 diazepam [From VALIUM] Allergy Unknown ? REACTION Verified 02/19/20 19:07 penicillin V Allergy Unknown rash Verified 02/19/20 19:07 Jakob Rosenthal Allergy Unknown rash Uncoded 06/15/19 00:00 Home Medications Medication Instructions Recorded Confirmed Type metoclopramide HCl 5 mg tablet 5 mg PO TIDWMEAL tab 02/15/20 02/19/20 History Linzess 290 mcg PO QAM 02/19/20 02/19/20 History cholecalciferol (vitamin D3) 25 mcg PO DAILY 02/19/20 02/19/20 History [Vitamin D3] clonazepam 1 mg PO BID 02/19/20 02/19/20 History duloxetine [Cymbalta] 60 mg PO DAILY 02/19/20 02/19/20 History fluticasone propionate 2 spray INTRANASAL DAILY 02/19/20 02/19/20 History folic acid 1 mg PO DAILY 02/19/20 02/19/20 History lansoprazole [Prevacid] 30 mg PO DAILY 02/19/20 02/19/20 History loratadine 10 mg PO DAILY 02/19/20 02/19/20 History magnesium 15 mg PO BID 02/19/20 02/19/20 History meclizine 12.5 mg PO TID PRN 02/19/20 02/19/20 History multivitamin 1 tab PO DAILY 02/19/20 02/19/20 History quetiapine [Seroquel] 100 mg PO BID 02/19/20 02/19/20 History topiramate [Topamax] 100 mg PO BID 02/19/20 02/19/20 History zinc gluconate 30 mg PO DAILY 02/19/20 02/19/20 History Exam Exam Date and Time: February 26, 2020 0948 Pertinent Lab Results Pertinent Lab Results: Laboratory Tests 02/19/20 02/19/20 20:52 20:52 WBC 10.4 Hgb 14.8 Hct 45.1 Plt Count 227 Sodium 142 Potassium 3.7 Chloride 105 BUN 14 Creatinine 1.35 Assessment and Plan Assessment Anesthesia Assessment: Chart Reviewed Documented by User: Antonina Rollins 02/27/20 10:16 [facility] Past Medical History Medical History (Updated 02/27/20 @ 10:16 by Antonina Rollins) Class 2 obesity Fibromyalgia GERD (gastroesophageal reflux disease) Osteoarthritis Renal colic Family History Family History Father Diabetes mellitus Hypercholesteremia Heart attack HTN (hypertension) Mother Diabetes mellitus HTN (hypertension) Heart attack Hypercholesteremia Cardiovascular disease Brother Liver cancer Brother Pancreatic cancer Brother Lymphoma Sister Cervical cancer Sister Cirrhosis of liver Family/Other Cancer Family/Other Ovarian cancer Surgical History Surgical History H/O lithotripsy History of esophagogastroduodenoscopy (EGD) Hx of colonoscopy Social History Social History Household Members: Family Alcohol intake: never Smoking Status: Former smoker Second Hand Smoke Exposure: No Use of substances other than those prescribed or required for medical reasons: No Advance Directives: No Advance Directives Information Provided: No Advance Directives on File: No Meds Allergies Allergy/AdvReac Type Severity Reaction Status Date / Time cephalexin [From KEFLEX] Allergy Intermediate RASH Verified 02/19/20 19:07 Penicillins Allergy Intermediate RASH Verified 02/19/20 19:07 diazepam [From VALIUM] Allergy Unknown ? REACTION Verified 02/19/20 19:07 penicillin V Allergy Unknown rash Verified 02/19/20 19:07 Jakob Rosenthal Allergy Unknown rash Uncoded 06/15/19 00:00 Home Medications Medication Instructions Recorded Confirmed Type metoclopramide HCl 5 mg tablet 5 mg PO TIDWMEAL tab 02/15/20 02/19/20 History Linzess 290 mcg PO QAM 02/19/20 02/19/20 History cholecalciferol (vitamin D3) 25 mcg PO DAILY 02/19/20 02/19/20 History [Vitamin D3] clonazepam 1 mg PO BID 02/19/20 02/19/20 History duloxetine [Cymbalta] 60 mg PO DAILY 02/19/20 02/19/20 History fluticasone propionate 2 spray INTRANASAL DAILY 02/19/20 02/19/20 History folic acid 1 mg PO DAILY 02/19/20 02/19/20 History lansoprazole [Prevacid] 30 mg PO DAILY 02/19/20 02/19/20 History loratadine 10 mg PO DAILY 02/19/20 02/19/20 History magnesium 15 mg PO BID 02/19/20 02/19/20 History meclizine 12.5 mg PO TID PRN 02/19/20 02/19/20 History multivitamin 1 tab PO DAILY 02/19/20 02/19/20 History quetiapine [Seroquel] 100 mg PO BID 02/19/20 02/19/20 History topiramate [Topamax] 100 mg PO BID 02/19/20 02/19/20 History zinc gluconate 30 mg PO DAILY 02/19/20 02/19/20 History
[2020-02-26 12:24] VITALS: BMI 38.4
--- NOTE | 2020-02-27 07:00 | XR_ITS ---
EXAMINATION: XR ABDOMEN KUB CLINICAL INDICATION: Left renal stone. COMPARISON: CT dated 02/19/2020 TECHNIQUE: AP view of the abdomen. FINDINGS: The previously seen calculus in the left proximal ureter near the UPJ is now situated within a lower pole calyx of the left kidney. This measures 1.2 cm in diameter. There is a 1.4 cm calculus within a calyx in the interpolar region which is unchanged. A left double-J ureteral stent is in place. No additional renal or ureteral calculi. Nondilated bowel gas pattern. Multiple phleboliths are present in the pelvis. Lung bases are clear. There is degenerative spondylosis of the lower lumbar spine with marked multilevel facet arthropathy mild osteoarthritis in the hips. XR/XR KUB IMPRESSION: Double-J left ureteral stent appears appropriately positioned. Previously seen left UPJ calculus is now situated over a left lower pole renal calyx.
[2020-02-27 08:25] VITALS: BP 154/97; PULSE 100; RESP 16; TEMP 36.1; O2SAT 100
[2020-02-27] MEDS: Lactated Ringers 1,000 ML 100 ML IVCONT (08:40)
--- NOTE | 2020-02-27 09:38 | P.HPSUR_ITS ---
Pre-Procedural Eval Section B Chief Complaint: Proxial Uretreal Stone Details of Present Illness: left renal stone Relevant Family History (Specify if Yes): No Relevant Social History: None Present Medications: see Short Stay Collaborative assessment Medical History: No relevant PMH History of Previous Operations: Relevant previous surgery/procedure and date(s) Allergies: Allergies Allergy/AdvReac Type Severity Reaction Status Date / Time cephalexin [From KEFLEX] Allergy Intermediate RASH Verified 02/19/20 19:07 Penicillins Allergy Intermediate RASH Verified 02/19/20 19:07 diazepam [From VALIUM] Allergy Unknown ? REACTION Verified 02/19/20 19:07 penicillin V Allergy Unknown rash Verified 02/19/20 19:07 Jakob Rosenthal Allergy Unknown rash Uncoded 06/15/19 00:00 Review of Systems Sugical H&P ROS: Negative: Constitution, Cardiovascular, Respiratory, N eurological, Psychiatric, Hem-Onc, Allergic/Immunologic, Gastrointestinal, Genitourinary, Musculoskeletal, Integumentary, Endocrine and Eyes/Ears/Nose/Throat Exam Surgical H&P Exam: Normal: HEENT, Normal: Heart, Normal: Lungs, Normal: Extremities, Normal: Abdomen, Normal: Skin and Normal: Neurological Plan Diagnosis/Plan: Unchanged Patient has been examined and remains a candidate for the planned procedure
--- NOTE | 2020-02-27 10:16 | HO.ANESPROP2 ---
[facility] Past Medical History Medical History Class 2 obesity Fibromyalgia GERD (gastroesophageal reflux disease) Osteoarthritis Renal colic Family History Family History Father Diabetes mellitus Hypercholesteremia Heart attack HTN (hypertension) Mother Diabetes mellitus HTN (hypertension) Heart attack Hypercholesteremia Cardiovascular disease Brother Liver cancer Brother Pancreatic cancer Brother Lymphoma Sister Cervical cancer Sister Cirrhosis of liver Family/Other Cancer Family/Other Ovarian cancer Surgical History Surgical History H/O lithotripsy History of esophagogastroduodenoscopy (EGD) Hx of colonoscopy Social History Social History Household Members: Family Alcohol intake: never Smoking Status: Former smoker Second Hand Smoke Exposure: No Use of substances other than those prescribed or required for medical reasons: No Advance Directives: No Advance Directives Information Provided: No Advance Directives on File: No Meds Allergies Allergy/AdvReac Type Severity Reaction Status Date / Time cephalexin [From KEFLEX] Allergy Intermediate RASH Verified 02/19/20 19:07 Penicillins Allergy Intermediate RASH Verified 02/19/20 19:07 diazepam [From VALIUM] Allergy Unknown ? REACTION Verified 02/19/20 19:07 penicillin V Allergy Unknown rash Verified 02/19/20 19:07 Jakob Rosenthal Allergy Unknown rash Uncoded 06/15/19 00:00 Home Medications Medication Instructions Recorded Confirmed Type metoclopramide HCl 5 mg tablet 5 mg PO TIDWMEAL tab 02/15/20 02/19/20 History Linzess 290 mcg PO QAM 02/19/20 02/19/20 History cholecalciferol (vitamin D3) 25 mcg PO DAILY 02/19/20 02/19/20 History [Vitamin D3] clonazepam 1 mg PO BID 02/19/20 02/19/20 History duloxetine [Cymbalta] 60 mg PO DAILY 02/19/20 02/19/20 History fluticasone propionate 2 spray INTRANASAL DAILY 02/19/20 02/19/20 History folic acid 1 mg PO DAILY 02/19/20 02/19/20 History lansoprazole [Prevacid] 30 mg PO DAILY 02/19/20 02/19/20 History loratadine 10 mg PO DAILY 02/19/20 02/19/20 History magnesium 15 mg PO BID 02/19/20 02/19/20 History meclizine 12.5 mg PO TID PRN 02/19/20 02/19/20 History multivitamin 1 tab PO DAILY 02/19/20 02/19/20 History quetiapine [Seroquel] 100 mg PO BID 02/19/20 02/19/20 History topiramate [Topamax] 100 mg PO BID 02/19/20 02/19/20 History zinc gluconate 30 mg PO DAILY 02/19/20 02/19/20 History Exam Exam Date and Time: February 27, 2020 1016 Height,Weight and Vital Signs: Height 5 ft 4 in Weight 101.605 kg Last Vital Signs Temp 96.9 F 02/27/20 08:25 Pulse 100 02/27/20 08:25 Resp 16 02/27/20 08:25 BP 154/97 H 02/27/20 08:25 Pulse Ox 100 02/27/20 08:25 Airway Mallampati Class: IV TM Dist: >3cm Neck ROM: Full Heart: RRR Lungs: CTA
--- NOTE | 2020-02-27 10:18 | HO.ANESPROP2 ---
[facility] Past Medical History Medical History Class 2 obesity Fibromyalgia GERD (gastroesophageal reflux disease) Osteoarthritis Renal colic Family History Family History Father Diabetes mellitus Hypercholesteremia Heart attack HTN (hypertension) Mother Diabetes mellitus HTN (hypertension) Heart attack Hypercholesteremia Cardiovascular disease Brother Liver cancer Brother Pancreatic cancer Brother Lymphoma Sister Cervical cancer Sister Cirrhosis of liver Family/Other Cancer Family/Other Ovarian cancer Surgical History Surgical History H/O lithotripsy History of esophagogastroduodenoscopy (EGD) Hx of colonoscopy Social History Social History Household Members: Family Alcohol intake: never Smoking Status: Former smoker Second Hand Smoke Exposure: No Use of substances other than those prescribed or required for medical reasons: No Advance Directives: No Advance Directives Information Provided: No Advance Directives on File: No Meds Allergies Allergy/AdvReac Type Severity Reaction Status Date / Time cephalexin [From KEFLEX] Allergy Intermediate RASH Verified 02/19/20 19:07 Penicillins Allergy Intermediate RASH Verified 02/19/20 19:07 diazepam [From VALIUM] Allergy Unknown ? REACTION Verified 02/19/20 19:07 penicillin V Allergy Unknown rash Verified 02/19/20 19:07 Jakob Rosenthal Allergy Unknown rash Uncoded 06/15/19 00:00 Home Medications Medication Instructions Recorded Confirmed Type metoclopramide HCl 5 mg tablet 5 mg PO TIDWMEAL tab 02/15/20 02/19/20 History Linzess 290 mcg PO QAM 02/19/20 02/19/20 History cholecalciferol (vitamin D3) 25 mcg PO DAILY 02/19/20 02/19/20 History [Vitamin D3] clonazepam 1 mg PO BID 02/19/20 02/19/20 History duloxetine [Cymbalta] 60 mg PO DAILY 02/19/20 02/19/20 History fluticasone propionate 2 spray INTRANASAL DAILY 02/19/20 02/19/20 History folic acid 1 mg PO DAILY 02/19/20 02/19/20 History lansoprazole [Prevacid] 30 mg PO DAILY 02/19/20 02/19/20 History loratadine 10 mg PO DAILY 02/19/20 02/19/20 History magnesium 15 mg PO BID 02/19/20 02/19/20 History meclizine 12.5 mg PO TID PRN 02/19/20 02/19/20 History multivitamin 1 tab PO DAILY 02/19/20 02/19/20 History quetiapine [Seroquel] 100 mg PO BID 02/19/20 02/19/20 History topiramate [Topamax] 100 mg PO BID 02/19/20 02/19/20 History zinc gluconate 30 mg PO DAILY 02/19/20 02/19/20 History Exam Exam Date and Time: February 27, 2020 1018 Height,Weight and Vital Signs: Height 5 ft 4 in Weight 101.605 kg Last Vital Signs Temp 96.9 F 02/27/20 08:25 Pulse 100 02/27/20 08:25 Resp 16 02/27/20 08:25 BP 154/97 H 02/27/20 08:25 Pulse Ox 100 02/27/20 08:25 Assessment and Plan Assessment Anesthesia Assessment: Anesthesia Plan Discussed, PAT Visit and Chart Reviewed Final Anesthetic Review NPO: Yes ASA Class: III Final Preanesthetic Review: No Changes in Pt Med Stat, Consent Obtained/Reviewed and Anes Risks/Benef Reviewed Patient Risk: Intermediate Procedure Risk: Low Anesthetic Plan Anesthetic Plan: GA Disposition: Standard PACU
--- NOTE | 2020-02-27 10:31 | PM.OP ---
Brief Operative Note Date of procedure: 02/27/20 Pre-op diagnosis: left renal stones Post-op diagnosis: same Procedure: Left ESWL Surgeon: Alan Medrano MD Anesthesia: MAC Estimated blood loss (mL): 0 Pathology: none sent Condition: stable Disposition: same day
--- NOTE | 2020-02-27 10:32 | W.PM.OPN ---
Operative Note Operative Note Narrative: PreOperative Diagnosis: Renal stones Post Operative Diagnosis: Renal stones Procedure: Left ESWL Surgeon: Dr Alan Medrano Anesthesia: mac/sedation Indications for procedure: They understand ESWL may be a staged procedure and subsequent intervention may be required based on imaging after ESWL. They also understand there is a risk of bleeding, infection, damage to adjacent organs. Procedure: After informed consent was verified the patient was brought to the operating room and placed in a supine position. Anesthesia was performed per protocol. Safety pause time-out was performed. Imaging was in the room and laterality confirmed. ESWL was performed. The 1st 500 shocks were performed at 60 hertz. These were performed with increasing power. Once maximum power was reached the rate was increased to 180 hertz. A total of 2500 shocks were given. Fluoroscopy showed stone disintegration. They tolerated procedure well and was transferred to the recovery area upon completion.
[2020-02-27 10:42] VITALS: BP 123/76; PULSE 78; RESP 16; TEMP 36; O2SAT 97
[2020-02-27 10:48] VITALS: BP 124/79; PULSE 79; RESP 16; O2SAT 97
[2020-02-27 10:53] VITALS: BP 128/79; PULSE 81; RESP 16; TEMP 36.1; O2SAT 97
[2020-02-27 10:59] VITALS: BP 114/75; PULSE 83; RESP 16; O2SAT 97
[2020-02-27] MEDS: Acetaminophen 325 MG TABLET 650 MG PO (11:17)
[2020-02-27] MEDS: Phenazopyridine HCL 100 MG TABLET PO (11:18)
[2020-02-27 11:22] VITALS: BP 120/68; PULSE 71; RESP 16; O2SAT 98
--- NOTE | 2020-02-27 11:52 | HO.POSTANES ---
Post Anesthesia Evaluation Post Anesthesia Evaluation Vital Signs: Vital Signs Temp Pulse Resp BP Pulse Ox 02/27/20 11:22 71 16 120/68 98 02/27/20 10:59 83 16 114/75 97 02/27/20 10:53 97 F 81 16 128/79 97 02/27/20 10:48 79 16 124/79 97 02/27/20 10:42 96.8 F 78 16 123/76 97 02/27/20 08:25 96.9 F 100 16 154/97 H 100 Anesthesia: General LMA Mental Status: Awake Pain Control: Satisfactory Nausea/Vomiting: None Hydration: Adequate Anesthesia-Related Issues: No Anes. Related Issues
--- NOTE | 2022-08-24 12:32 | PM.DS ---
DS: Providers Provider Date of Service: 02/20/20 Primary care physician: Jayda Mcelroy MD Admitting clinician: Alan Medrano DS: Diagnosis Discharge Diagnosis (1) Kidney stones: Status: Acute DS: Summary Hospital Course Hospital Course: underwent stenting and discharge Status at Discharge Functional status at discharge: independent ambulation Overall status at discharge: patient is back to baseline Time Spent with Patient Time attestation: Total time managing care of this patient today ____ minutes. Discharge coordination time: Less than 30 minutes Quality: Safe Use of Opioids Does Pt have an Active Cancer Diagnosis on the Problem List?: No Quality: Stroke Does the patient have a stroke diagnosis?: No Physical Exam Vital Signs: Vital Signs: Last Vital Signs Temp 97 F 02/27/20 10:53 Pulse 71 02/27/20 11:22 Resp 16 02/27/20 11:22 BP 120/68 02/27/20 11:22 Pulse Ox 98 02/27/20 11:22 O2 Del Method Room Air 02/27/20 11:22 BMI result Body Mass Index 38.4 DS: Data Data Completed and Pending Completed studies during hospitalization [Text1]: Procedures Dilation of Left Ureter with Intraluminal Device, Via Natural or Artificial Opening Endoscopic (10/26/21) Extirpation of Matter from Left Ureter, Via Natural or Artificial Opening Endoscopic (10/26/21) Fluoroscopy of Left Kidney, Ureter and Bladder (10/26/21) Discharge Plan Discharge Patient Disposition: Home, Self-Care Referrals: Jayda Patiño MD [Primary Care Provider] - Alan Medrano MD [Physician] - 1 Week (1 week stent removal in office) Discharge Medications: Continued meclizine 12.5 mg Tablet 12.5 mg PO TID PRN (Reason: Dizziness) folic acid 1 mg Tablet 1 mg PO DAILY loratadine 10 mg Tablet 10 mg PO DAILY duloxetine [Cymbalta] 60 mg Capsule,Delayed Release(Dr/Ec) 60 mg PO BID No Action meloxicam 15 mg tablet 15 mg PO DAILY Qty: 30 3RF tramadol 50 mg tablet 50 mg PO Q6H PRN (Reason: pain) Qty: 120 2RF magnesium oxide 400 mg (241.3 mg magnesium) tablet 400 mg PO BID 90 Days Qty: 180 0RF magnesium oxide 400 mg (241.3 mg magnesium) tablet 400 mg PO BID 90 Days Qty: 180 0RF clonazepam 0.5 mg tablet 1 tab PO DAILY PRN (Reason: Anxiety) buspirone 5 mg tablet 5 mg PO DAILY cholecalciferol (vitamin D3) [Vitamin D3] 25 mcg (1,000 unit) capsule 1 cap PO DAILY fluticasone propionate 50 mcg/actuation [place],Suspension 2 spray INTRANASAL DAILY Rx Instructions: administer into each nostril topiramate 50 mg tablet 50 mg PO BID pyridoxine (vitamin B6) 100 mg tablet 100 mg PO DAILY 90 Days Qty: 90 1RF sumatriptan succinate 25 mg tablet 5 mg PO ONCE PRN (Reason: Migraine Headache) hydrochlorothiazide 12.5 mg tablet 12.5 mg PO DAILY sennosides [senna] 8.6 mg tablet 17.2 mg PO BID PRN (Reason: for constipation) 90 Days Qty: 120 1RF allopurinol 100 mg tablet 100 mg PO DAILY amitriptyline 25 mg tablet 25 mg PO BEDTIME doxepin 10 mg capsule 10 mg PO BEDTIME lansoprazole 30 mg capsule,delayed release(DR/EC) 30 mg PO DAILY 90 Days Qty: 90 1RF Linzess 290 mcg capsule 290 mcg PO DAILY 90 Days Qty: 90 1RF metoclopramide HCl 5 mg tablet 5 mg PO .TIDAC 90 Days Qty: 270 1RF Discharge Orders: Discharge Order (Routine); Ordered 02/27/20 Ordered By: Alan Medrano Diet: Advance to usual diet Activity on Discharge: As tolerated Patient Instructions: Lithotripsy (DC) Activity Restrictions/Additional Instructions: MARK 02/28/20 Message left to call md if any issues PMarionRMarta Discharge Date/Time: 02/27/20 11:55
== END 2020-02-27 11:55 | disposition home or self-care (01) ==
PROVIDERS: PCP Internal Medicine; Visit Provider Urology
PROC: (CPT 50590; principal; 2020-02-27 09:10)
DX: N20.0 Calculus of kidney (principal); Z96.0 Presence of urogenital implants; Z87.442 Personal history of urinary calculi; K21.9 Gastro-esophageal reflux disease without esophagitis; M16.0 Bilateral primary osteoarthritis of hip; M47.896 Other spondylosis, lumbar region; Z87.891 Personal history of nicotine dependence; Z88.0 Allergy status to penicillin; Z88.8 Allergy status to other drugs, medicaments and biological substances; Z79.899 Other long term (current) drug therapy
CPT/HCPCS: 50590; 74018; J1100; J2250; J2405; J3010

== ENCOUNTER 2020-04-19 13:29 | Emergency (ER) | payer MEDICAID, SELFPAY ==
[2020-04-19 18:32] VITALS: BP 174/93; PULSE 92; RESP 18; TEMP 36.6; O2SAT 99; BMI 38.9
--- NOTE | 2020-04-19 18:36 | CT_ITS ---
EXAMINATION: CT ABDOMEN AND PELVIS WITHOUT CONTRAST CLINICAL INFORMATION: Abdomen and pelvic pain. COMPARISON: 02/18/2018 TECHNIQUE: Multidetector volumetric imaging was performed from the superior aspect of the liver through the pubic symphysis. Sagittal and coronal reformatted images were obtained on the technologist's workstation. This CT examination was performed using dose optimization techniques as appropriate, variously including the following: Automated exposure control. Adjustment of mA and/or kV according to patient size (this includes techniques or standardized protocols for targeted exams where dose is matched to indication/reason for exam; i.e. extremities or head). Use of iterative reconstruction technique. DLP: 837 mGy-cm FINDINGS: LUNG BASES: Lung bases are clear. LIVER, GALLBLADDER, AND BILIARY TREE: Hepatic steatosis. No focal lesions. Gallbladder is nondistended. No obvious inflammatory changes seen. Pancreas, spleen, and adrenal glands appear unremarkable. KIDNEYS AND URETERS: Left double-J ureteral stent extending from the renal pelvis to the bladder. There is severe left hydronephrosis. Seen on images [id number] series 3, and image [id number] series 6 are multiple calculi clustered together in the left mid ureter adjacent to the stent at approximately the L5 vertebral body level. These calculi are clustered together, with the larger calculi measuring 7 mm and 5 mm in length. Distal to this, the ureter is nondistended. There is a 6 mm calculus in the left renal lower pole calyx. There are multiple nonobstructing right renal calculi. No right-sided hydronephrosis. BLADDER: Partially distended. No definite calculi are noted in the bladder. GASTROINTESTINAL TRACT: Normal caliber of the bowel loops. No acute bowel findings evident. No ascites. ABDOMINAL WALL: Surgical changes from prior umbilical hernia repair. LYMPH NODES: No adenopathy. VASCULAR: Normal caliber aorta. PELVIC VISCERA: Unremarkable CT appearance of the uterus. Adnexa within normal limits. OSSEOUS STRUCTURES: Multilevel degeneration in the spine. CT/CT abdomen pelvis wo con IMPRESSION: 1. There is a left double-J ureteral stent present. There is severe left hydronephrosis. There are multiple calculi clustered together within the mid left ureter adjacent to the stent. This is approximately at the L5 level. The larger calculi measure 7 mm and 5 mm respectively. The ureter distal to these calculi are nondilated. 2. Additional bilateral renal calculi. 3. Hepatic steatosis.
[2020-04-19 18:47] LABS: Glucose Urine UA NEG (NEG); Leukocyte Esterase Urine 1+ (NEG); Nitrite Urine NEG (NEG); PH 5.5 (5.0-8.0); Specific Gravity - Urine >= 1.030 (1.005-1.025); Urine Blood 3+ (NEG); Urine Ketones NEG (NEG); Urine Protein 2+ MG/DL (NEG-TRACE)
[2020-04-19] MEDS: 0.9 % Sodium Chloride 1,000 ML 999 ML IV (18:51)
[2020-04-19 18:57] LABS: MANUAL DIFF FLAG NO
[2020-04-19 19:07] LABS: Basophils Percent Auto 0.6 % (0-2); Eosinophils Absolute Auto 0.1 X10*3/uL (0.0-0.4); Eosinophils Percent Auto 2.1 % (0-4); Hematocrit 42.3 % (37-47); Imm Gran Abs Auto 0.01 X10*3/uL (0.00-0.03); Imm Gran Pct Auto 0.1 % (0.0-0.4); Lymphocytes Absolute Auto 2.2 X10*3/uL (1.2-4.9); Lymphocytes Percent Auto 32.3 % (20-40); Mean Corpuscular HGB Conc 33.1 g/dl (31.0-35.0); Mean Corpuscular Volume 93.6 fL (80-98); Mean Platelet Volume 12.3 fL (9.4-12.3); Monocytes Absolute Auto 0.5 X10*3/uL (0.1-1.2); Neutrophils Absolute Auto 3.8 X10*3/uL (2.0-8.3); Neutrophils Percent Auto 56.9 % (45-73); Platelet Count 206 X10*3/uL (160-400); Red Blood Count 4.52 X10*6/uL (4.20-5.50); Red Cell Distribution Width 13.3 % (11.0-16.0); White Blood Count 6.7 X10*3/uL (4.8-10.8)
[2020-04-19 19:24] LABS: Alanine Aminotransferase 68 U/L (0-31); Albumin Level 3.9 g/dL (3.5-5.0); Alkaline Phosphatase 90 U/L (39-117); Anion Gap 12 (12-20); Aspartate Amino Transferase 49 U/L (5-31); Bilirubin Total 0.4 mg/dL (0.0-1.0); Blood Urea Nitrogen 11 mg/dL (9-16); Calcium 8.2 mg/dL (8.4-10.2); Carbon Dioxide 22 mmol/L (22-29); Chloride 109 mmol/L (96-108); Creatinine Clr Calc Pharmacy 70.3; Estimated Glomerular Filt Rate 56; Glucose Random 106 mg/dL (60-115); Potassium 3.9 mmol/l (3.3-5.1); Sodium 139 mmol/L (135-145); Total Protein 6.3 g/dL (6.5-8.0)
[2020-04-19 19:29] LABS: INTERNATIONAL NORM RATIO 1.1 (0.9-1.1); Prothrombin Time 12.9 SEC (10.8-13.0)
[2020-04-19 19:31] LABS: Partial Thromboplastin Time 27.8 SEC (24.1-38.0)
[2020-04-19 19:46] LABS: Appearance Urine TURBID; Color Urine BROWN
[2020-04-19 19:49] LABS: RBC Urine TNTC /HPF (0)
[2020-04-19 19:50] LABS: Bacteria Urine TRACE /LPF; Squamous Epithelial Cell Urine TRACE /LPF
--- NOTE | 2020-04-19 20:10 | ED_ITS ---
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 55-year-old female with past medical history significant for obesity, gastroesophageal reflux disease, gastroparesis, fibromyalgia, osteoarthritis, kidney stone who is status post ESWL with stenting on March 02 here at this facility by Dr. Medrano for renal calculi she was subsequently spoke to follow-up in a week states she call office however there was no answer. States since then she has had some flank pain in the left side and radiating to the suprapubic area since. Denies any fever or chills. Denies any dysuria. States pain worse over past several days. Related Data Home Medications Medication Instructions Recorded Confirmed Linzess 290 mcg PO QAM 02/19/20 02/19/20 cholecalciferol (vitamin D3) 25 mcg PO DAILY 02/19/20 02/19/20 [Vitamin D3] clonazepam 1 mg PO BID 02/19/20 02/19/20 duloxetine [Cymbalta] 60 mg PO DAILY 02/19/20 02/19/20 fluticasone propionate 2 spray INTRANASAL DAILY 02/19/20 02/19/20 folic acid 1 mg PO DAILY 02/19/20 02/19/20 loratadine 10 mg PO DAILY 02/19/20 02/19/20 magnesium 15 mg PO BID 02/19/20 02/19/20 meclizine 12.5 mg PO TID PRN 02/19/20 02/19/20 multivitamin 1 tab PO DAILY 02/19/20 02/19/20 quetiapine [Seroquel] 100 mg PO BID 02/19/20 02/19/20 topiramate [Topamax] 100 mg PO BID 02/19/20 02/19/20 zinc gluconate 30 mg PO DAILY 02/19/20 02/19/20 Previous Rx's Medication Instructions Recorded hydrocodone-acetaminophen 1 tab PO Q6H 7 Days #28 tab 02/20/20 phenazopyridine [Pyridium] 100 mg PO TID PRN 4 Days #12 tab 02/20/20 tamsulosin 0.4 mg PO BEDTIME #14 cap 02/20/20 lansoprazole 30 mg capsule,delayed 30 mg PO DAILY 30 Days #30 cap 02/27/20 release tamsulosin 0.4 mg PO BEDTIME #14 cap 02/27/20 meloxicam 15 mg tablet 15 mg PO DAILY #30 tab 03/14/20 metoclopramide HCl 5 mg tablet 5 mg PO TID #90 tab 03/14/20 tramadol 50 mg tablet 50 mg PO Q6H PRN #120 tab 03/27/20 ibuprofen 800 mg PO Q8H PRN #30 tab 04/19/20 oxycodone 5 mg PO Q8H PRN #14 tab 04/19/20 prednisone 20 mg PO DAILY #5 tab 04/19/20 tamsulosin [Flomax] 0.4 mg PO DAILY 7 Days #7 cap 04/19/20 Allergies Allergy/AdvReac Type Severity Reaction Status Date / Time cephalexin [From KEFLEX] Allergy Intermediate RASH Verified 02/19/20 19:07 Penicillins Allergy Intermediate RASH Verified 02/19/20 19:07 diazepam [From VALIUM] Allergy Unknown ? REACTION Verified 02/19/20 19:07 penicillin V Allergy Unknown rash Verified 02/19/20 19:07 Jakob Rosenthal Allergy Unknown rash Uncoded 06/15/19 00:00 Review of Systems Review of Systems: Constitutional: No Weight loss, No Fever, No Chills, No Night Sweats, No Fatigue, No Malaise ENT/Mouth: No Hearing loss, No Ear Pain, No Nasal Congestion, No Sinus Pain, No Hoarseness, No sore throat, No Rhinorrhea, No Swallowing Difficulty Eyes: No Eye Pain, No Swelling, No Redness, No Foreign Body, No Discharge, No Vision Changes Cardiovascular: No Chest Pain, No SOB, No Dyspnea on Exertion, No Orthopnea, No Edema, No Palpitations Respiratory: No Cough, No Sputum, No Wheezing, No Dyspnea Gastrointestinal: No Nausea, No Vomiting, No Diarrhea, No Constipation, No abdominal Pain, No Hematochezia, No Melena Genitourinary: no irregular bleeding, No Dysuria, No Urinary Frequency, No Hematuria, No Urinary Incontinence, No Urgency, + Flank Pain, No Urinary Flow Changes, No Hesitancy Musculoskeletal: No joint pain, No Myalgias, No Joint Swelling Skin: No Skin Lesions, No rash Neuro: No Weakness, No Numbness, No Paresthesias, No Loss of Consciousness, No Dizziness, No Headache Psych: No Social Issues Heme/Lymph: No Bruising, No Bleeding,No Lymphadenopathy Endocrine: No Polyuria, No Polydipsia, No Temperature Intolerance Yes all other systems are reviewed and are negative [facility] [place] Past Medical History Medical History Class 2 obesity Fibromyalgia GERD (gastroesophageal reflux disease) Osteoarthritis Renal colic Surgical History H/O lithotripsy History of esophagogastroduodenoscopy (EGD) Hx of colonoscopy Family History Family History Father Diabetes mellitus Hypercholesteremia Heart attack HTN (hypertension) Mother Diabetes mellitus HTN (hypertension) Heart attack Hypercholesteremia Cardiovascular disease Brother Liver cancer Brother Pancreatic cancer Brother Lymphoma Sister Cervical cancer Sister Cirrhosis of liver Family/Other Cancer Family/Other Ovarian cancer Social History Social History Household Members: Family Alcohol intake: never Smoking Status: Former smoker Cigarettes Per Day: 10 Second Hand Smoke Exposure: No Advance Directives: No Advance Directives Information Provided: No Physical Exam Vital Signs: Vital Signs: Last Vital Signs Temp 98 F 04/19/20 18:32 Pulse 92 04/19/20 18:32 Resp 18 04/19/20 18:32 BP 174/93 H 04/19/20 18:32 Pulse Ox 99 04/19/20 18:32 Body Mass Index 38.9 Reviewed Const: General: cooperative and healthy appearing; No acute distress or intoxicated appearing Nutritional Appearance: average body habitus Orientation/consciousness: patient oriented x3 HENMT: Head: Yes normal to inspection Ears: hearing grossly normal bilaterally Eyes: General: appearance normal, both eyes and all related structures Visual Pressley: normal visual pressley by confrontation Neck: Neck: Yes normal visual inspection and No tender Thyroid: Thyroid normal Chest: Chest palpation & inspection: normal inspection of the chest Resp: Effort & Inspection: normal respiratory effort Auscultation: clear to auscultation bilaterally Cardio: Jugular venous distension: no JVD Rhythm: regular rhythm Heart sounds: S1 normal heart sound present and S2 normal heart sound present GI: Inspection: Yes normal to inspection Percussion: Yes normal to percussion Auscultation: normal bowel sounds : General: Yes no CVA tenderness Back/Spine/Pelvis: Back: no CVA tenderness Skin: General skin exam: no rashes or lesions noted Neuro: General: patient oriented x3 Extrem: General: Yes normal to inspection Course Course Course Narrative: Interview 55-year-old female status post ESWL and stenting for left renal calculi on March 02 subsequently was postop follow-up to have her removed has not done so having increased left flank pain. Clinically nontoxic appearing. He medically stable. Will check labs including UA and CT of the abdomen pelvis rule out obstructive pathology. Will treat with ketorolac IV. Will consult Urology. Differential diagnosis include but not limited to UTI, renal calculi, spasmodic pain from ureter stent, pyelonephritis less likely, urosepsis less likely. Reevaluation(s) Reevaluation #1: Labs overtly unremarkable. No leukocytosis. UA with RBC but no infection. No CVA tenderness to palpation. CT abdomen/pelvis shows There is a left double-J ureteral stent present. There is severe left hydronephrosis. There are multiple calculi clustered together within the mid left ureter adjacent to the stent. This is approximately at the L5 level. The larger calculi measure 7 mm and 5 mm respectively. The ureter distal to these calculi are nondilatedoted. Case discussed with urology Dr. Villalobos Recommendation for pain management and follow-up in office call Tuesday Dr. Medrano for follow-up. Reevaluation #2: Patient counseled on finding the need/importance of follow-up with Urology for further instrumentation and removal of the stent for increased risk of infection. At this time she will be educated on proper use of pain medication, NSAIDs, Flomax and clear return instructions provided. Patient overall nontoxic appearing. Stable for discharge. Consultations Consultation #1: Urology MDM - Female Genitourinary Lab Data Result diagrams: 04/19/20 18:49 04/19/20 18:49 Labs: Lab Results 04/19/20 04/19/20 04/19/20 Range/Units 18:38 18:49 18:49 WBC 6.7 (4.8-10.8) X10*3/uL RBC 4.52 (4.20-5.50) X10*6/uL Hgb 14.0 (12.0-16.0) g/dl Hct 42.3 (37-47) % MCV 93.6 (80-98) fL MCH 31.0 (27.0-33.0) pg MCHC 33.1 (31.0-35.0) g/dl RDW 13.3 (11.0-16.0) % Plt Count 206 (160-400) X10*3/uL MPV 12.3 (9.4-12.3) fL Immature Gran % (Auto) 0.1 (0.0-0.4) % Neut % (Auto) 56.9 (45-73) % Lymph % (Auto) 32.3 (20-40) % [place] % (Auto) 8.0 (2-11) % Eos % (Auto) 2.1 (0-4) % Baso % (Auto) 0.6 (0-2) % Lymph # (Auto) 2.2 (1.2-4.9) X10*3/uL [place] # (Auto) 0.5 (0.1-1.2) X10*3/uL Eos # (Auto) 0.1 (0.0-0.4) X10*3/uL Baso # (Auto) 0.0 (0.0-0.2) X10*3/uL Abs Immat Gran (auto) 0.01 (0.00-0.03) X10*3/uL Absolute Neuts (auto) 3.8 (2.0-8.3) X10*3/uL Absolute Nucleated RBC 0.000 (0.0-0.012) X10*3/uL Nucleated RBC % (auto) 0.0 (0.0-0.2) /100WBC PT 12.9 (10.8-13.0) SEC INR 1.1 (0.9-1.1) APTT 27.8 (24.1-38.0) SEC Sodium (135-145) mmol/L Potassium (3.3-5.1) mmol/l Chloride (96-108) mmol/L Carbon Dioxide (22-29) mmol/L Anion Gap (12-20) BUN (9-16) mg/dL Creatinine (0.5-1.4) mg/dL Estim Creat Clear Calc Estimated GFR Random Glucose (60-115) mg/dL Calcium (8.4-10.2) mg/dL Total Bilirubin (0.0-1.0) mg/dL AST (5-31) U/L ALT (0-31) U/L Alkaline Phosphatase (39-117) U/L Total Protein (6.5-8.0) g/dL Albumin (3.5-5.0) g/dL Urine Color BROWN Urine Appearance TURBID Urine pH 5.5 (5.0-8.0) Ur Specific [place] >= 1.030 H (1.005-1.025) Urine Protein 2+ H (NEG-TRACE) MG/DL Urine Glucose (UA) NEG (NEG) MG/DL Urine Ketones NEG (NEG) MG/DL Urine Blood 3+ H (NEG) Urine Nitrite NEG (NEG) Ur Leukocyte Esterase 1+ H (NEG) Urine RBC TNTC H (0) /HPF Urine WBC 5-9 H (0-4) /HPF Ur Squamous Epith Cells TRACE /LPF Urine Bacteria TRACE /LPF 04/19/ Range/Units 18:49 WBC (4.8-10.8) X10*3/uL RBC (4.20-5.50) X10*6/uL Hgb (12.0-16.0) g/dl Hct (37-47) % MCV (80-98) fL MCH (27.0-33.0) pg MCHC (31.0-35.0) g/dl RDW (11.0-16.0) % Plt Count (160-400) X10*3/uL MPV (9.4-12.3) fL Immature Gran % (Auto) (0.0-0.4) % Neut % (Auto) (45-73) % Lymph % (Auto) (20-40) % [place] % (Auto) (2-11) % Eos % (Auto) (0-4) % Baso % (Auto) (0-2) % Lymph # (Auto) (1.2-4.9) X10*3/uL [place] # (Auto) (0.1-1.2) X10*3/uL Eos # (Auto) (0.0-0.4) X10*3/uL Baso # (Auto) (0.0-0.2) X10*3/uL Abs Immat Gran (auto) (0.00-0.03) X10*3/uL Absolute Neuts (auto) (2.0-8.3) X10*3/uL Absolute Nucleated RBC (0.0-0.012) X10*3/uL Nucleated RBC % (auto) (0.0-0.2) /100WBC PT (10.8-13.0) SEC INR (0.9-1.1) APTT (24.1-38.0) SEC Sodium 139 (135-145) mmol/L Potassium 3.9 (3.3-5.1) mmol/l Chloride 109 H (96-108) mmol/L Carbon Dioxide 22 (22-29) mmol/L Anion Gap 12 (12-20) BUN 11 (9-16) mg/dL Creatinine 1.03 (0.5-1.4) mg/dL Estim Creat Clear Calc 70.3 Estimated GFR 56 Random Glucose 106 D (60-115) mg/dL Calcium 8.2 L (8.4-10.2) mg/dL Total Bilirubin 0.4 (0.0-1.0) mg/dL AST 49 H (5-31) U/L ALT 68 H (0-31) U/L Alkaline Phosphatase 90 (39-117) U/L Total Protein 6.3 L (6.5-8.0) g/dL Albumin 3.9 (3.5-5.0) g/dL Urine Color Urine Appearance Urine pH (5.0-8.0) Ur Specific [place] (1.005-1.025) Urine Protein (NEG-TRACE) MG/DL Urine Glucose (UA) (NEG) MG/DL Urine Ketones (NEG) MG/DL Urine Blood (NEG) Urine Nitrite (NEG) Ur Leukocyte Esterase (NEG) Urine RBC (0) /HPF Urine WBC (0-4) /HPF Ur Squamous Epith Cells /LPF Urine Bacteria /LPF Discharge Plan Discharge Clinical Impression: Ureterolithiasis, Pain due to ureteral stent Patient Disposition: Home, Self-Care Instructions: Ureteral Stent Placement (DC), Flank Pain (ED) Additional Instructions: Push fluids Take medication prescribed Do not drink alcohol or drive while taking any pain medications Follow-up with urology Dr. Medrano on Tuesday as discussed Return if any concerns or worsening symptoms Thank you Prescriptions: New prednisone 20 mg tablet 20 mg PO DAILY Qty: 5 RF: 0 tamsulosin [Flomax] 0.4 mg capsule 0.4 mg PO DAILY 7 Days Qty: 7 RF: 0 oxycodone 5 mg tablet 5 mg PO Q8H PRN (Reason: pain) Qty: 14 RF: 0 ibuprofen 800 mg tablet 800 mg PO Q8H PRN (Reason: pain) Qty: 30 RF: 0 No Action lansoprazole [Prevacid] 30 mg capsule,delayed release(DR/EC) 30 mg PO DAILY 30 Days Qty: 30 RF: 3 meloxicam 15 mg tablet 15 mg PO DAILY Qty: 30 RF: 3 metoclopramide HCl 5 mg tablet 5 mg PO TID Qty: 90 RF: 1 tramadol 50 mg tablet 50 mg PO Q6H PRN (Reason: pain) Qty: 120 RF: 5 multivitamin Tablet 1 tab PO DAILY RF: 0 magnesium 500 mg Tablet 15 mg PO BID RF: 0 clonazepam 1 mg Tablet 1 mg PO BID RF: 0 meclizine 12.5 mg Tablet 12.5 mg PO TID PRN (Reason: Dizziness) RF: 0 quetiapine [Seroquel] 100 mg Tablet 100 mg PO BID RF: 0 folic acid 1 mg Tablet 1 mg PO DAILY RF: 0 topiramate [Topamax] 100 mg Tablet 100 mg PO BID RF: 0 fluticasone propionate 50 mcg/actuation [place],Suspension 2 spray INTRANASAL DAILY RF: 0 loratadine 10 mg Tablet 10 mg PO DAILY RF: 0 duloxetine [Cymbalta] 60 mg Capsule,Delayed Release(Dr/Ec) 60 mg PO DAILY RF: 0 cholecalciferol (vitamin D3) [Vitamin D3] 25 mcg (1,000 unit) Tablet 25 mcg PO DAILY RF: 0 zinc gluconate 30 mg Tablet 30 mg PO DAILY RF: 0 Linzess 290 mcg Capsule 290 mcg PO QAM RF: 0 tamsulosin 0.4 mg capsule 0.4 mg PO BEDTIME Qty: 14 RF: 0 phenazopyridine [Pyridium] 100 mg tablet 100 mg PO TID PRN (Reason: spasm) 4 Days Qty: 12 RF: 0 hydrocodone-acetaminophen 5-300 mg tablet 1 tab PO Q6H 7 Days Qty: 28 RF: 0 tamsulosin 0.4 mg capsule 0.4 mg PO BEDTIME Qty: 14 RF: 0 Referrals: Alan Medrano MD [Physician] - 2 days
[2020-04-19] MEDS: Ketorolac Tromethamine 30 MG/ML VIAL IVPUSH (20:34)
[2020-04-19 20:37] VITALS: BP 169/103; PULSE 87; RESP 18; TEMP 36.6; O2SAT 99
== END 2020-04-19 20:48 | disposition home or self-care (01) ==
PROVIDERS: Nurse Practitioner Primary Care; Emergency Provider Emergency Medicine
DX: N13.2 Hydronephrosis with renal and ureteral calculous obstruction (principal); Z96.0 Presence of urogenital implants
CPT/HCPCS: 36415; 74176; 80053; 81001; 85025; 85610; 85730; 87086; 96361; 96374; 99285; J1885

== ENCOUNTER 2020-04-29 12:48 | Outpatient (REF) | payer MEDICAID, SELFPAY ==
--- NOTE | 2020-04-29 14:54 | XR_ITS ---
EXAMINATION: XR ABDOMEN KUB CLINICAL INDICATION: Urinary tract calculi. COMPARISON: CT abdomen and pelvis noncontrast 04/19/2020, KUB 02/27/2020 TECHNIQUE: AP x2 views of the abdomen. FINDINGS: There are multiple ureteral calculi along the left ureter at level L4 and L5, approximately 7 in number. Largest calculus approximately 6 x 8 mm. No visible left intrarenal calculi. There is questionable calcific density overlying upper pole right kidney versus artifact from bowel content. No visible right ureteral calculi. There are multiple calcified phleboliths in the pelvis. Bowel gas unremarkable. There are multilevel degenerative changes lumbosacral spine. XR/XR KUB IMPRESSION: 1. Multiple left ureteral calculi approximately 7 in number at levels L4 and L5. 2. Small calculus versus bowel artifact overlying upper right renal fossa.
== END 2020-04-29 12:49 | disposition home or self-care (01) ==
LOC: HO.XRAY 12:48
PROVIDERS: PCP Internal Medicine; Visit Provider Urology
DX: N20.2 Calculus of kidney with calculus of ureter (principal); Z46.6 Encounter for fitting and adjustment of urinary device
CPT/HCPCS: 52000; 52310; 74018; 99212

== ENCOUNTER 2020-05-13 12:40 | Outpatient (REF) | payer MEDICAID, SELFPAY ==
--- NOTE | 2020-05-13 12:42 | US_ITS ---
EXAMINATION: US RETROPERITONEAL LIMITED (RENAL ONLY) CLINICAL INFORMATION: Calculus of kidney. COMPARISON: KUB dated 04/29/2020 and 02/27/2020. CT abdomen and pelvis without contrast dated 04/19/2020. Renal ultrasound dated 01/03/2020 and 05/29/2019. TECHNIQUE: Real-time imaging of the kidneys. FINDINGS: RIGHT KIDNEY: 11.6 x 5.2 x 4.6 cm (SAG x AP x TRV). The kidney is normal in size, contour, and echogenicity. Renal cortical thickness is normal. There are several echogenic foci with twinkle artifact in the mid and lower pole the right kidney suggestive of small stones. No focal parenchymal lesions or hydronephrosis. LEFT KIDNEY: 12.9 x 6.6 x 5.5 cm (SAG x AP x TRV). The kidney is normal in size, contour, and echogenicity. Renal cortical thickness is normal. There is moderate left hydronephrosis. The left ureter is dilated. There are several left distal ureteral stones identified, largest measuring 4 x 8 and 5 x 9 mm. No renal focal parenchymal lesions. No definite renal stone seen. ADDITIONAL FINDINGS: Not optimally distended. Bilateral ureteral jets are seen. US/US renal BI IMPRESSION: Moderate left hydronephrosis and left ureteral dilatation. Multiple left distal ureteral stones are seen. Small right renal stones..
== END 2020-05-13 12:41 | disposition home or self-care (01) ==
LOC: HO.US 12:40
PROVIDERS: PCP Internal Medicine; Visit Provider Urology
DX: N20.0 Calculus of kidney (principal)
CPT/HCPCS: 76775

== ENCOUNTER → 2020-07-18 11:06 | Outpatient (BNVA) | payer MEDICAID, SELFPAY | PROVIDERS: PCP Internal Medicine; Visit Provider Physician Assistant | DX: M77.8 Other enthesopathies, not elsewhere classified (principal) | CPT/HCPCS: 20610; 99212; J1020 ==

== ENCOUNTER → 2020-08-04 13:50 | Outpatient (BNVA) | payer MEDICAID, SELFPAY | PROVIDERS: PCP Internal Medicine; Visit Provider Nurse Practitioner ==

== ENCOUNTER 2020-09-18 14:50 | Outpatient (REF) | payer MEDICAID, SELFPAY | END 2020-09-18 14:51 | disposition home or self-care (01) | LOC: HO.MRI 14:50 | PROVIDERS: Visit Provider Physician Assistant | DX: Z13.89 Encounter for screening for other disorder (principal) ==

== ENCOUNTER 2020-10-09 08:46 | Outpatient (REF) | payer MEDICAID, SELFPAY ==
--- NOTE | ~2020-10-09 | US_ITS ---
EXAMINATION: US ABDOMEN COMPLETE CLINICAL INFORMATION: Fatty liver. COMPARISON: Renal ultrasound 05/13/2020. X-ray abdomen KUB 04/29/2020. CT abdomen and pelvis 04/19/2020. Ultrasound abdomen 01/13/2012. TECHNIQUE: Real-time imaging of the abdominal viscera. FINDINGS: PANCREAS: Normal. ABDOMINAL AORTA: The proximal, mid, and distal segments are normal in caliber. INFERIOR VENA CAVA: Visualized portions are normal. LIVER: Liver echotexture is increased. There is a hypoechoic area in the left lobe of the liver measuring 3 x 2.2 x 3 cm in sagittal AP and transverse dimension. This corresponds to a slightly high attenuation area in the left lobe of the liver liver on CT axial image 21 series 03/27/2020 suggestive of an area of focal fatty sparing. No other focal liver lesion is seen. The liver is normal in size and contour. There is no intrahepatic biliary duct dilatation seen. GALLBLADDER: Normal. The gallbladder is physiologically distended without evidence of stones, sludge, polyps, wall thickening or pericholecystic fluid. COMMON BILE DUCT: Normal in caliber measuring 0.4 cm in diameter. RIGHT KIDNEY: There are small renal stones. No hydronephrosis or focal parenchymal lesions. The kidney measures 11.7 cm in maximum dimension. LEFT KIDNEY: There are small renal stones. No hydronephrosis or focal parenchymal lesions. The kidney measures 11.2 cm in maximum dimension. SPLEEN: Normal. The spleen measures 11.3 cm in maximum dimension. FREE FLUID: None. US/US abdomen complete IMPRESSION: Echogenic liver probably representing fatty infiltration. 3 x 2 x 3 cm hypoechoic area in the left lobe of the liver probably representing an area of focal fatty sparing. Small bilateral renal stones.
== END 2020-10-09 08:47 | disposition home or self-care (01) ==
LOC: HO.US 08:46
PROVIDERS: PCP Internal Medicine; Visit Provider Internal Medicine
DX: K76.0 Fatty (change of) liver, not elsewhere classified (principal)
CPT/HCPCS: 76700

== ENCOUNTER 2020-10-12 12:19 | Emergency (ER) | payer MEDICAID, SELFPAY ==
--- NOTE | ~2020-10-12 | US_ITS ---
EXAMINATION: US RETROPERITONEAL LIMITED (RENAL ONLY) CLINICAL INFORMATION: Left-sided pain with history of stones. COMPARISON: Prior studies including the recent 10/09/2020 ultrasound as well as the 04/19/2020 CT scan TECHNIQUE: Multiple routine sonographic views through the bilateral kidneys and bladder are obtained FINDINGS: RIGHT KIDNEY: 12.1 x 5.9 x 6.0 cm (SAG x AP x TRV). The kidney is normal in size, contour, and echogenicity. Renal cortical thickness is normal. No focal parenchymal lesions. No hydronephrosis. There is a 0.8 cm lower pole shadowing echogenic calculi. LEFT KIDNEY: 12.7 x 6.4 x 6.8 cm (SAG x AP x TRV). The kidney is normal in size, contour, and echogenicity. Renal cortical thickness is normal. Moderate hydronephrosis is noted with dilatation to the visualized proximal ureter is a suggestion of a small stone in the mid left ureter that measures 0.9 x 0.5 cm in size. Distal ureters obscured by overlying bowel gas. There is a 0.4 cm midpole calculi noted. Bilateral ureteric jets are seen within the decompressed bladder US/US renal BI IMPRESSION: Moderate left-sided hydronephrosis and hydroureter with a 0.9 x 0.5 cm calculi noted within the dilated mid left ureter. There was no obvious hydronephrosis on the recent prior ultrasound.
[2020-10-12 12:32] VITALS: BP 156/94; PULSE 99; RESP 18; TEMP 36.9; O2SAT 96; BMI 40.0
--- NOTE | 2020-10-12 14:22 | ED.ABDPAIN ---
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 of arrival: ambulatory Limitations: no limitations History of Present Illness MD elicited complaint: flank pain Pertinent past history: kidney stones Onset (ago): hour(s) (5am today) Pain Consistency: constant Location: L flank Severity: severe Quality: stabbing Radiation: LLQ Exacerbating factors: nothing Relieving factors: nothing Context: history of similar episodes Associated symptoms: nausea Related Data Home Medications Medication Instructions Recorded Confirmed cholecalciferol (vitamin D3) 25 mcg PO DAILY 02/19/20 02/19/20 [Vitamin D3] clonazepam 1 mg PO BID 02/19/20 02/19/20 duloxetine [Cymbalta] 60 mg PO DAILY 02/19/20 02/19/20 fluticasone propionate 2 spray INTRANASAL DAILY 02/19/20 02/19/20 folic acid 1 mg PO DAILY 02/19/20 02/19/20 loratadine 10 mg PO DAILY 02/19/20 02/19/20 meclizine 12.5 mg PO TID PRN 02/19/20 02/19/20 multivitamin 1 tab PO DAILY 02/19/20 02/19/20 quetiapine [Seroquel] 100 mg PO BID 02/19/20 02/19/20 topiramate [Topamax] 100 mg PO BID 02/19/20 02/19/20 zinc gluconate 30 mg PO DAILY 02/19/20 02/19/20 Previous Rx's Medication Instructions Recorded hydrocodone-acetaminophen 1 tab PO Q6H 7 Days #28 tab 02/20/20 phenazopyridine [Pyridium] 100 mg PO TID PRN 4 Days #12 tab 02/20/20 tamsulosin 0.4 mg PO BEDTIME #14 cap 02/27/20 meloxicam 15 mg tablet 15 mg PO DAILY #30 tab 03/14/20 ibuprofen 800 mg PO Q8H PRN #30 tab 04/19/20 oxycodone 5 mg PO Q8H PRN #14 tab 04/19/20 prednisone 20 mg PO DAILY #5 tab 04/19/20 allopurinol 100 mg tablet 100 mg PO DAILY #90 tab 04/29/20 pyridoxine (vitamin B6) 100 mg 100 mg PO DAILY 90 Days #90 tab 04/29/20 tablet bisacodyl 5 mg tablet,delayed 10 mg PO BEDTIME 2 Days #4 tab 08/04/20 release lansoprazole 30 mg capsule,delayed 30 mg PO DAILY 30 Days #30 cap 08/04/20 release linaclotide 290 mcg capsule 290 mcg PO DAILY #30 cap 08/04/20 magnesium oxide 400 mg PO BID 30 Days #60 cap 08/04/20 metoclopramide HCl 5 mg tablet 5 mg PO TID #90 tab 08/04/20 tramadol 50 mg tablet 50 mg PO Q6H PRN #120 tab 09/26/20 ondansetron 4 mg PO Q8H PRN #20 tab 10/12/20 oxycodone 10 mg PO Q6H PRN #20 tab 10/12/20 prednisone 40 mg PO DAILY 4 Days #8 tab 10/12/20 tamsulosin 0.4 mg PO DAILY 10 Days #10 cap 10/12/20 Allergies Allergy/AdvReac Type Severity Reaction Status Date / Time cephalexin [From KEFLEX] Allergy Intermediate RASH Verified 10/12/20 12:36 Penicillins Allergy Intermediate RASH Verified 10/12/20 12:36 diazepam [From VALIUM] Allergy Unknown ? REACTION Verified 10/12/20 12:36 penicillin V Allergy Unknown rash Verified 10/12/20 12:36 Jakob Rosenthal Allergy Unknown rash Uncoded 10/12/20 12:36 Review of Systems Review of Systems Constitutional : No Weight loss, No Fever, No Chills ENT/Mouth : No sore throat, No Rhinorrhea Eyes: No Swelling, No Redness Cardiovascular : No Chest Pain, No SOB, NoEdema Respiratory : No Cough, No Sputum, No Wheezing Gastrointestinal : Positive Nausea, no Vomiting, no Diarrhea, positive abdominal Pain, No Hematochezia, No Melena Genitourinary : No Dysuria, No Urinary Frequency, No Hematuria, No Urgency Musculoskeletal : No joint pain, No Myalgias, No Joint Swelling, pos flank pain Skin : No Skin Lesions, No rash Neuro : No Weakness, No Numbness, No Dizziness, No Headache Psych : No Anxiety/Panic, No Depression Heme/Lymph: No Bruising, No Lymphadenopathy Endocrine : No Polyuria, No Polydipsia All other systems reviewed and are negative. Physical Exam Vital Signs: Vital Signs: Last Vital Signs Temp 98.4 F 10/12/20 14:58 Pulse 80 10/12/20 14:58 Resp 18 10/12/20 14:58 BP 124/93 H 10/12/20 14:58 Pulse Ox 98 10/12/20 14:58 Body Mass Index 40.0 Appearance: Alert. Oriented X3. No acute distress. Eyes: Pupils equal, round and reactive to light. ENT: Pharynx normal. Neck: Normal inspection. Neck supple. CVS: Normal heart rate and rhythm. Pulses normal. Respiratory: No respiratory distress. Breath sounds normal. Abdomen: Soft and non-tender. Back: no CVA ttp Skin: Skin warm and dry. Normal skin color. Normal skin turgor. Extremities: No lower extremity edema. No calf ttp Neuro: Oriented X 3. No motor deficit. No sensory deficit. Course Course Course Narrative: + US will discuss with Urology given size of stone, Cr normal, added on steroids and flomax, message sent to Dr. Medrano 405pm patient does not want to stay, I did not notify Dr. Medrano plan to follow up as outpatient - patient to call in AM aware she will likely not pass this on her own MDM - Abdominal Pain MDM Narrative Medical decision making narrative: 55 yo female with hx of GERD, sleep apnea, renal colic c/o L sided flank pain since 5am feels similar to prior renal colic, at this time labs, IVF, IV morphine/toradol, UA and US to evaluate for obstructed stone, dispo per results and findings. Lab Data Result diagrams: 10/12/20 15:08 10/12/20 15:08 Labs: Lab Results 10/12/20 10/12/20 10/12/20 Range/Units 15:08 15:08 15:08 WBC 11.2 H (4.8-10.8) X10*3/uL RBC 4.78 (4.20-5.50) X10*6/uL Hgb 14.7 (12.0-16.0) g/dl Hct 44.7 (37-47) % MCV 93.5 (80-98) fL MCH 30.8 (27.0-33.0) pg MCHC 32.9 (31.0-35.0) g/dl RDW 13.5 (11.0-16.0) % Plt Count 210 (160-400) X10*3/uL MPV 11.7 (9.4-12.3) fL Immature Gran % (Auto) 0.3 (0.0-0.4) % Neut % (Auto) 72.9 (45-73) % Lymph % (Auto) 19.2 L (20-40) % [place] % (Auto) 6.8 (2-11) % Eos % (Auto) 0.3 (0-4) % Baso % (Auto) 0.5 (0-2) % Lymph # (Auto) 2.1 (1.2-4.9) X10*3/uL [place] # (Auto) 0.8 (0.1-1.2) X10*3/uL Eos # (Auto) 0.0 (0.0-0.4) X10*3/uL Baso # (Auto) 0.1 (0.0-0.2) X10*3/uL Abs Immat Gran (auto) 0.03 (0.00-0.03) X10*3/uL Absolute Neuts (auto) 8.1 (2.0-8.3) X10*3/uL Absolute Nucleated RBC 0.000 (0.0-0.012) X10*3/uL Nucleated RBC % (auto) 0.0 (0.0-0.2) /100WBC Sodium 138 (135-145) mmol/L Potassium 4.1 (3.3-5.1) mmol/L Chloride 105 (96-108) mmol/L Carbon Dioxide 24 (22-29) mmol/L Anion Gap 13 (12-20) BUN 14 (9-16) mg/dL Creatinine 1.07 (0.5-1.4) mg/dL Estim Creat Clear Calc 68.7 Estimated GFR 53 Random Glucose 93 (60-115) mg/dL Calcium 9.1 D (8.4-10.2) mg/dL Urine Color YELLOW Urine Appearance CLEAR Urine pH 6.0 (5.0-8.0) Ur Specific [place] 1.010 (1.005-1.025) Urine Protein NEG (NEG-TRACE) MG/DL Urine Glucose (UA) NEG (NEG) MG/DL Urine Ketones NEG (NEG) MG/DL Urine Blood TRACE (NEG) Urine Nitrite NEG (NEG) Ur Leukocyte Esterase NEG (NEG) Urine RBC 0-2 (0) /HPF Urine WBC 0 (0-4) /HPF Ur Squamous Epith Cells 4+ /LPF Urine Bacteria TRACE /LPF Discharge Plan Discharge Clinical Impression: Ureterolithiasis Patient Disposition: Home, Self-Care Instructions: Ureteral Stones (ED) Additional Instructions: return to ED for any worsening symptoms or concerns CALL DR. MEDRANO'S OFFICE TUESDAY DO NOT TAKE THE PREDNISONE OR FLOMAX TONIGHT Prescriptions: New prednisone 20 mg tablet 40 mg PO DAILY 4 Days Qty: 8 RF: 0 tamsulosin 0.4 mg capsule 0.4 mg PO DAILY 10 Days Qty: 10 RF: 0 ondansetron 4 mg tablet,disintegrating 4 mg PO Q8H PRN (Reason: nausea and vomiting) Qty: 20 RF: 0 oxycodone 10 mg tablet 10 mg PO Q6H PRN (Reason: pain) Qty: 20 RF: 0 No Action meloxicam 15 mg tablet 15 mg PO DAILY Qty: 30 RF: 3 tramadol 50 mg tablet 50 mg PO Q6H PRN (Reason: pain) Qty: 120 RF: 5 multivitamin Tablet 1 tab PO DAILY RF: 0 clonazepam 1 mg Tablet 1 mg PO BID RF: 0 meclizine 12.5 mg Tablet 12.5 mg PO TID PRN (Reason: Dizziness) RF: 0 quetiapine [Seroquel] 100 mg Tablet 100 mg PO BID RF: 0 folic acid 1 mg Tablet 1 mg PO DAILY RF: 0 topiramate [Topamax] 100 mg Tablet 100 mg PO BID RF: 0 fluticasone propionate 50 mcg/actuation [place],Suspension 2 spray INTRANASAL DAILY RF: 0 loratadine 10 mg Tablet 10 mg PO DAILY RF: 0 duloxetine [Cymbalta] 60 mg Capsule,Delayed Release(Dr/Ec) 60 mg PO DAILY RF: 0 cholecalciferol (vitamin D3) [Vitamin D3] 25 mcg (1,000 unit) Tablet 25 mcg PO DAILY RF: 0 zinc gluconate 30 mg Tablet 30 mg PO DAILY RF: 0 phenazopyridine [Pyridium] 100 mg tablet 100 mg PO TID PRN (Reason: spasm) 4 Days Qty: 12 RF: 0 hydrocodone-acetaminophen 5-300 mg tablet 1 tab PO Q6H 7 Days Qty: 28 RF: 0 tamsulosin 0.4 mg capsule 0.4 mg PO BEDTIME Qty: 14 RF: 0 prednisone 20 mg tablet 20 mg PO DAILY Qty: 5 RF: 0 oxycodone 5 mg tablet 5 mg PO Q8H PRN (Reason: pain) Qty: 14 RF: 0 ibuprofen 800 mg tablet 800 mg PO Q8H PRN (Reason: pain) Qty: 30 RF: 0 bisacodyl [Dulcolax (bisacodyl)] 5 mg tablet,delayed release (DR/EC) 10 mg PO BEDTIME 2 Days Qty: 4 RF: 6 lansoprazole [Prevacid] 30 mg capsule,delayed release(DR/EC) 30 mg PO DAILY 30 Days Qty: 30 RF: 3 Linzess 290 mcg capsule 290 mcg PO DAILY Qty: 30 RF: 4 metoclopramide HCl 5 mg tablet 5 mg PO TID Qty: 90 RF: 3 magnesium oxide 400 mg magnesium capsule 400 mg PO BID 30 Days Qty: 60 RF: 3 allopurinol 100 mg tablet 100 mg PO DAILY Qty: 90 RF: 3 pyridoxine (vitamin B6) 100 mg tablet 100 mg PO DAILY 90 Days Qty: 90 RF: 1 Referrals: Alan Medrano MD [Physician] - 1 day Stand Alone Forms: Work/School Release Print Language: [place] [facility] Past Medical History Attestation statement: The following information was validated with the patient. Medical History Class 2 obesity Fibromyalgia GERD (gastroesophageal reflux disease) Osteoarthritis Renal colic Rotator cuff tendonitis Surgical History H/O lithotripsy History of esophagogastroduodenoscopy (EGD) Hx of colonoscopy Family History Family History Father Diabetes mellitus Hypercholesteremia Heart attack HTN (hypertension) Mother Diabetes mellitus HTN (hypertension) Heart attack Hypercholesteremia Cardiovascular disease Brother Liver cancer Brother Pancreatic cancer Brother Lymphoma Sister Cervical cancer Sister Cirrhosis of liver Family/Other Cancer Family/Other Ovarian cancer Social History Social History Household Members: Family Alcohol intake: never Cigarettes Per Day: 10 Second Hand Smoke Exposure: No Advance Directives: Yes Advance Directives Information Provided: Yes Advance Directives on File: No Patient : No
[2020-10-12 14:58] VITALS: BP 124/93; PULSE 80; RESP 18; TEMP 36.9; O2SAT 98
[2020-10-12 15:15] LABS: MANUAL DIFF FLAG NO
[2020-10-12 15:17] LABS: Basophils Absolute Auto 0.1 X10*3/uL (0.0-0.2); Basophils Percent Auto 0.5 % (0-2); Eosinophils Percent Auto 0.3 % (0-4); Hematocrit 44.7 % (37-47); Hemoglobin 14.7 g/dl (12.0-16.0); Imm Gran Abs Auto 0.03 X10*3/uL (0.00-0.03); Imm Gran Pct Auto 0.3 % (0.0-0.4); Lymphocytes Absolute Auto 2.1 X10*3/uL (1.2-4.9); Lymphocytes Percent Auto 19.2 % (20-40); Mean Corpuscular HGB Conc 32.9 g/dl (31.0-35.0); Mean Corpuscular Hemoglobin 30.8 pg (27.0-33.0); Mean Corpuscular Volume 93.5 fL (80-98); Mean Platelet Volume 11.7 fL (9.4-12.3); Monocytes Absolute Auto 0.8 X10*3/uL (0.1-1.2); Monocytes Percent Auto 6.8 % (2-11); Neutrophils Absolute Auto 8.1 X10*3/uL (2.0-8.3); Neutrophils Percent Auto 72.9 % (45-73); Platelet Count 210 X10*3/uL (160-400); Red Blood Count 4.78 X10*6/uL (4.20-5.50); Red Cell Distribution Width 13.5 % (11.0-16.0); White Blood Count 11.2 X10*3/uL (4.8-10.8)
[2020-10-12 15:18] LABS: Glucose Urine UA NEG (NEG); Leukocyte Esterase Urine NEG (NEG); Nitrite Urine NEG (NEG); Urine Blood TRACE (NEG); Urine Ketones NEG (NEG); Urine Protein NEG (NEG-TRACE)
[2020-10-12 15:20] LABS: Appearance Urine CLEAR; Color Urine YELLOW
[2020-10-12 15:39] LABS: Bacteria Urine TRACE /LPF; RBC Urine 0-2 /HPF (0); Squamous Epithelial Cell Urine 4+ /LPF; WBC Urine 0 /HPF (0-4)
[2020-10-12 16:03] LABS: Anion Gap 13 (12-20); Blood Urea Nitrogen 14 mg/dL (9-16); Calcium 9.1 mg/dL (8.4-10.2); Carbon Dioxide 24 mmol/L (22-29); Chloride 105 mmol/L (96-108); Creatinine Clr Calc Pharmacy 68.7; Estimated Glomerular Filt Rate 53; Glucose Random 93 mg/dL (60-115); Potassium 4.1 mmol/L (3.3-5.1); Sodium 138 mmol/L (135-145)
[2020-10-12] MEDS: Ketorolac Tromethamine 30 MG/ML VIAL IVPUSH (16:23)
[2020-10-12] MEDS: Morphine Sulfate 4 MG/ML CARTRIDGE IVPUSH (16:23)
[2020-10-12] MEDS: predniSONE 20 MG TABLET 60 MG PO (16:24)
[2020-10-12] MEDS: ondansetron HCL 4 MG/2 ML VIAL IVPUSH (16:24)
[2020-10-12] MEDS: Tamsulosin HCL 0.4 MG CAPSULE PO (16:24)
[2020-10-12] MEDS: 0.9 % Sodium Chloride 1,000 ML 999 ML IVCONT (16:25)
[2020-10-12 16:36] VITALS: BP 145/81; PULSE 74; RESP 18; O2SAT 99
--- NOTE | 2020-10-12 16:45 | PC.NURSE ---
Pt c/o L sided flank pain starting 5am this morning, pt states the pain feels similar to renal colic that she had previously. Pt currently resting quietly.
[2020-10-12 18:12] VITALS: BP 125/78; PULSE 68; RESP 18; TEMP 36.6; O2SAT 98
== END 2020-10-12 18:58 | disposition home or self-care (01) ==
PROVIDERS: Emergency Provider Emergency Medicine; PCP Internal Medicine
DX: N13.2 Hydronephrosis with renal and ureteral calculous obstruction (principal)
CPT/HCPCS: 36415; 76775; 80048; 81001; 85025; 96361; 96374; 96375; 99284; J1885; J2270; J2405

== ENCOUNTER → 2020-11-20 11:20 | Outpatient (BNVA) | payer MEDICAID, SELFPAY | PROVIDERS: PCP Internal Medicine; Referring Provider Internal Medicine; Visit Provider Nurse Practitioner | DX: N20.0 Calculus of kidney (principal) | CPT/HCPCS: 99202 ==

== ENCOUNTER → 2020-12-04 12:18 | Outpatient (BNVA) | payer MEDICAID, SELFPAY | PROVIDERS: PCP Internal Medicine; Visit Provider Physician Assistant | DX: M75.41 Impingement syndrome of right shoulder (principal); M75.42 Impingement syndrome of left shoulder | CPT/HCPCS: 20610; 99212; J1040 ==

== ENCOUNTER 2020-12-11 15:14 | Outpatient (REF) | payer MEDICAID, SELFPAY ==
--- NOTE | ~2020-12-11 | US_ITS ---
EXAMINATION: US RETROPERITONEAL LIMITED (RENAL ONLY) CLINICAL INFORMATION: Calculus of kidney. COMPARISON: Renal ultrasound 10/12/2020. Ultrasound abdomen complete 10/09/2020. KUB 04/29/[address] 02/27/2020. CT abdomen and pelvis 04/19/2020. TECHNIQUE: Real-time imaging of the kidneys. FINDINGS: RIGHT KIDNEY: 11.6 x 6.0 x 5.1 cm (SAG x AP x TRV). The kidney is normal in size, contour, and echogenicity. Renal cortical thickness is normal. No focal parenchymal lesions or hydronephrosis. Clustering of cyst lower pole measures 10 mm and 4 mm LEFT KIDNEY: 11.1 x 4.3 x 4.9 cm (SAG x AP x TRV). The kidney is normal in size, contour, and echogenicity. Renal cortical thickness is normal. No focal parenchymal lesions or hydronephrosis. 2 foci mid and lower pole measures 5.4 mm each US/US renal BI IMPRESSION: The extent of stone burden appears comparable. No hydronephrosis on the current study. Previous noted left ureteral stone not demonstrated.
== END 2020-12-11 15:15 | disposition home or self-care (01) ==
LOC: HO.US 15:14
PROVIDERS: PCP Internal Medicine; Visit Provider Urology
DX: N20.0 Calculus of kidney (principal)
CPT/HCPCS: 76775

== ENCOUNTER 2020-12-22 06:39 | Day surgery (SDC) | payer MEDICAID, SELFPAY ==
[2020-12-17 08:30] VITALS: BMI 39.5
--- NOTE | 2020-12-19 10:18 | HO.ANESPROP2 ---
Documented by User: Sol Penn NP 12/19/20 10:19 HPI - Anesthesia Eval Consult details Narrative: 55yo F for Left Cystoscopy, Ureteroroscopy, Retro, Laser, Poss Stent Placement PMFSH Active Problems Active Problems: All Active Problems (Updated 12/04/20 @ 12:39 by Nimo King PA-C) Chronic idiopathic constipation (Acute) GERD (gastroesophageal reflux disease) (Acute) Gastroparesis (Acute) Sleep apnea (Acute) Tendonitis of left rotator cuff (Acute) Injury of tendon of right rotator cuff (Acute) Impingement syndrome of both shoulders (Acute) Renal calculi (Acute) Past Medical History Medical History Class 2 obesity Fibromyalgia GERD (gastroesophageal reflux disease) Osteoarthritis Renal calculi Renal colic Rotator cuff tendonitis Family History Family History Father Diabetes mellitus Hypercholesteremia Heart attack HTN (hypertension) Mother Diabetes mellitus HTN (hypertension) Heart attack Hypercholesteremia Cardiovascular disease Brother Liver cancer Brother Pancreatic cancer Brother Lymphoma Sister Cervical cancer Sister Cirrhosis of liver Family/Other Cancer Family/Other Ovarian cancer Surgical History Surgical History H/O lithotripsy History of esophagogastroduodenoscopy (EGD) Hx of colonoscopy Social History Social History (Updated 12/17/20 @ 08:30 by Kasey Joseph RN) Household Members: Family Alcohol intake: never Patient Tobacco Use Status: Current everyday Tobacco user Cigarettes Per Day: 10 Second Hand Smoke Exposure: No Advance Directives Information Provided: No Current occupational status: disabled Current occupation: rt handed Meds Allergies Allergy/AdvReac Type Severity Reaction Status Date / Time cephalexin [From KEFLEX] Allergy Intermediate RASH Verified 11/20/20 14:10 diazepam [From VALIUM] Allergy Intermediate Anxiety Verified 12/22/20 06:47 Penicillins Allergy Intermediate RASH Verified 11/20/20 14:10 Jakob Rosenthal Allergy Intermediate rash Uncoded 12/16/20 15:42 Home Medications Medication Instructions Recorded Confirmed Last Taken Type cholecalciferol (vitamin D3) 25 25 mcg PO DAILY 02/19/20 11/20/20 Unknown History mcg (1,000 unit) tablet (Vitamin D3) clonazepam 1 mg tablet 1 mg PO BID 02/19/20 11/20/20 Unknown History duloxetine 60 mg capsule,delayed 60 mg PO DAILY 02/19/20 11/20/20 Unknown History release (Cymbalta) fluticasone propionate 50 2 spray INTRANASAL DAILY 02/19/20 11/20/20 Unknown History mcg/actuation nasal spray,suspension folic acid 1 mg tablet 1 mg PO DAILY 02/19/20 11/20/20 Unknown History loratadine 10 mg tablet 10 mg PO DAILY 02/19/20 11/20/20 Unknown History meclizine 12.5 mg tablet 12.5 mg PO TID PRN 02/19/20 11/20/20 Unknown History multivitamin 1 tab PO DAILY 02/19/20 11/20/20 Unknown History quetiapine 100 mg tablet (Seroquel) 100 mg PO BID 02/19/20 11/20/20 Unknown History topiramate 100 mg tablet (Topamax) 100 mg PO BID 02/19/20 11/20/20 Unknown History zinc gluconate 30 mg tablet 30 mg PO DAILY 02/19/20 11/20/20 Unknown History Exam Exam Date and Time: December 19, 2020 1018 Height,Weight and Vital Signs: Height 5 ft 3 in Weight 101.208 kg Pertinent Lab Results Pertinent Lab Results: Laboratory Tests 10/12/20 10/12/20 15:08 15:08 WBC 11.2 H Hgb 14.7 Hct 44.7 Plt Count 210 Sodium 138 Potassium 4.1 Chloride 105 Carbon Dioxide 24 BUN 14 Creatinine 1.07 Assessment and Plan Assessment Anesthesia Assessment: Chart Reviewed Documented by User: Dony Plaza MD 12/22/20 08:05 [facility] Past Medical History Medical History Class 2 obesity Fibromyalgia GERD (gastroesophageal reflux disease) Osteoarthritis Renal calculi Renal colic Rotator cuff tendonitis Family History Family History Father Diabetes mellitus Hypercholesteremia Heart attack HTN (hypertension) Mother Diabetes mellitus HTN (hypertension) Heart attack Hypercholesteremia Cardiovascular disease Brother Liver cancer Brother Pancreatic cancer Brother Lymphoma Sister Cervical cancer Sister Cirrhosis of liver Family/Other Cancer Family/Other Ovarian cancer Surgical History Surgical History H/O lithotripsy History of esophagogastroduodenoscopy (EGD) Hx of colonoscopy Social History Social History (Updated 12/17/20 @ 08:30 by Kasey Joseph RN) Household Members: Family Alcohol intake: never Patient Tobacco Use Status: Current everyday Tobacco user Cigarettes Per Day: 10 Second Hand Smoke Exposure: No Advance Directives Information Provided: No Current occupational status: disabled Current occupation: rt handed Meds Allergies Allergy/AdvReac Type Severity Reaction Status Date / Time cephalexin [From KEFLEX] Allergy Intermediate RASH Verified 11/20/20 14:10 diazepam [From VALIUM] Allergy Intermediate Anxiety Verified 12/22/20 06:47 Penicillins Allergy Intermediate RASH Verified 11/20/20 14:10 Jakob Rosenthal Allergy Intermediate rash Uncoded 12/16/20 15:42 Home Medications Medication Instructions Recorded Confirmed Last Taken Type cholecalciferol (vitamin D3) 25 25 mcg PO DAILY 02/19/20 11/20/20 Unknown History mcg (1,000 unit) tablet (Vitamin D3) clonazepam 1 mg tablet 1 mg PO BID 02/19/20 11/20/20 Unknown History duloxetine 60 mg capsule,delayed 60 mg PO DAILY 02/19/20 11/20/20 Unknown History release (Cymbalta) fluticasone propionate 50 2 spray INTRANASAL DAILY 02/19/20 11/20/20 Unknown History mcg/actuation nasal spray,suspension folic acid 1 mg tablet 1 mg PO DAILY 02/19/20 11/20/20 Unknown History loratadine 10 mg tablet 10 mg PO DAILY 02/19/20 11/20/20 Unknown History meclizine 12.5 mg tablet 12.5 mg PO TID PRN 02/19/20 11/20/20 Unknown History multivitamin 1 tab PO DAILY 02/19/20 11/20/20 Unknown History quetiapine 100 mg tablet (Seroquel) 100 mg PO BID 02/19/20 11/20/20 Unknown History topiramate 100 mg tablet (Topamax) 100 mg PO BID 02/19/20 11/20/20 Unknown History zinc gluconate 30 mg tablet 30 mg PO DAILY 02/19/20 11/20/20 Unknown History Exam Airway Mallampati Class: III TM Dist: >3cm Neck ROM: Full
[2020-12-22] VITALS (7 sets, daily range): BP systolic 128–140; BP diastolic 78–90; PULSE 58–109; RESP 15–20; TEMP 36.3; O2SAT 96–100
--- NOTE | ~2020-12-22 | FL_ITS ---
EXAMINATION: XR FLUOROSCOPY WITH IMAGES CLINICAL INFORMATION: Urinary calculus. COMPARISON: Renal ultrasound dated 12/11/2020; KUB dated 05/01/2020; CT abdomen and pelvis dated 04/19/2020. TECHNIQUE: Fluoroscopy performed by Dr. Alan Medrano. Fluoroscopy time: 43 minutes DAP: 19.79 mGycm2 Images: 2 FINDINGS: The first submitted image shows contrast within the distal left ureter. There is focal narrowing of the distal left ureter with an adjacent more caudal ovoid calculus. The second submitted image shows the distal pigtail of a double pigtail left ureteric stent. There is a small amount contrast noted within the urinary bladder. There are filling defects within the urinary bladder which could represent calculi or gas bubbles. The distal left ureteric calculus is not identified on the second image. FL/FL guidance in OR IMPRESSION: Intraoperative fluoroscopic guidance is provided during left ureteric stone retrieval and stent placement. Please see Operative Report for full procedural details.
[2020-12-22] MEDS: Lactated Ringers 1,000 ML 100 ML IVCONT (07:38)
--- NOTE | 2020-12-22 09:04 | MHC.SHP ---
Pre-Procedural Eval Section A Date of Service: 12/22/20 Section B Chief Complaint: Calculus of kidney Details of Present Illness: Left stones on ultrasound Relevant Social History: None Present Medications: see Short Stay Collaborative assessment Medical History: No relevant PMH History of Previous Operations: Relevant previous surgery/procedure and date(s) Allergies: Allergies Allergy/AdvReac Type Severity Reaction Status Date / Time cephalexin [From KEFLEX] Allergy Intermediate RASH Verified 11/20/20 14:10 diazepam [From VALIUM] Allergy Intermediate Anxiety Verified 12/22/20 06:47 Penicillins Allergy Intermediate RASH Verified 11/20/20 14:10 Jakbo Rosenthal Allergy Intermediate rash Uncoded 12/16/20 15:42 Review of Systems Sugical H&P ROS: Negative: Constitution, Cardiovascular, Respiratory, Neurological, Psychiatric, Hem-Onc, Allergic/Immunologic, Gastrointestinal, Genitourinary, Musculoskeletal, Integumentary, Endocrine and Eyes/Ears/Nose/Throat Exam Surgical H&P Exam: Normal: HEENT, Normal: Heart, Normal: Lungs, Normal: Extremities, Normal: Abdomen, Normal: Skin and Normal: Neurological Plan Diagnosis/Plan: Unchanged (Left ureteroscopy laser lithotripsy stent placement) I have reviewed the history and physical and performed a pertinent physical examination on my patient. No changes have occurred unless specified.
[2020-12-22] MEDS: levoFLOXacin 500 MG TABLET PO (09:05)
--- NOTE | 2020-12-22 10:05 | P.OP_ITS ---
Operative Note Operative Note Date of Service: 12/22/20 Narrative: PreOperative Diagnosis: Left mid ureteric stone Post Operative Diagnosis: Left mid ureteric stone Procedure: - left cystoscopy, retrograde - dilatation of ureteric orifice under fluoroscopy - leftureteroscopy, laser lithotripsy, stone basketing - left stent placement Surgeon: Dr Alan Medrano Anesthesia: General Indications for procedure: Known stone former. [facility] ESWL last year. Presented with pain on left side. On imaging found to have left mid ureteric stone with mild to moderate hydroureteronephrosis. Recommend intervention with ureteroscopy since stone was mid to distal ureter Procedure: After informed consent was verified patient was brought to the operating placed in supine position. Anesthesia was administered per protocol. Patient was placed in modified dorsal lithotomy position and prepped and draped in a sterile fashion. Safety pause time-out and side of surgery confirmed. Antibiotics confirmed.. Twenty-two [place] cystoscope inserted per urethra. Both ureteric orifices normal position. Left ureteric orifice cannulated with open-ended catheter and retrograde examination performed. Filling defects seen in mid to distal portion of the ureter consistent with the stone position. Sensor guidewire placed Dilatation performed of left ureteric orifice using internal cannulated from ureteric access sheath. Rigid ureteroscopy performed. Stone was encounter in the mid to distal ureter as indicated on imaging. The stone was broken into small pieces using the dusting settings on a holmium laser. Using a Zero tip 1.9 [place] basket fragments were removed and will be sent for analysis. Once all the fragments had been removed decision was made to perform ureteroscopy of the renal pelvis. Using a digital ureteral scope this was advanced over the Sensor wire into the renal pelvis. Renal pelvis was examined and no further stones was seen. Sensor guarded wire was replaced. A 6 [place] by 22 cm stent was then placed over the wire up to the level renal pelvis with good coil seen within the bladder. The bladder was emptied of urine. She tolerated procedure well was extubated in the operating room and transferred in stable condition to the recovery area. Pathology: fragments for stone analysis Drains: 6F x 22cm stent
[2020-12-22] MEDS: Phenazopyridine HCL 100 MG TABLET PO (10:40)
[2020-12-22] MEDS: Acetaminophen 325 MG TABLET 650 MG PO (10:40)
[2020-12-22] MEDS: oxyCODONE HCl Immed Release 5 MG TABLET PO (10:41)
[2020-12-25 14:06] LABS: Stone Source KIDNEY STONE
== END 2020-12-22 11:35 | disposition home or self-care (01) ==
PROVIDERS: PCP Internal Medicine; Visit Provider Urology
PROC: (CPT 52356; principal; 2020-12-22 08:30)
DX: N13.30 Unspecified hydronephrosis (principal); N20.1 Calculus of ureter; Z87.442 Personal history of urinary calculi; E66.9 Obesity, unspecified; Z68.39 Body mass index [BMI] 39.0-39.9, adult; M79.7 Fibromyalgia; Z79.899 Other long term (current) drug therapy; Z88.0 Allergy status to penicillin; Z88.1 Allergy status to other antibiotic agents; Z88.8 Allergy status to other drugs, medicaments and biological substances
CPT/HCPCS: 52356; 52352; 82365; 88300; C1758; C1769; C2617; J1100; J2250; J2405; J3010; Q9967

== ENCOUNTER → 2020-12-30 13:42 | Outpatient (BNVA) | payer MEDICAID, SELFPAY | PROVIDERS: PCP Internal Medicine; Visit Provider Urology | DX: N20.0 Calculus of kidney (principal) | CPT/HCPCS: 52310; 99212 ==

== ENCOUNTER 2021-01-06 12:13 | Outpatient (REF) | payer MEDICAID, SELFPAY ==
--- NOTE | ~2021-01-06 | MM_ITS ---
EXAMINATION: MM SCREENING DIGITAL BREAST TOMOSYNTHESIS, BILATERAL CLINICAL INFORMATION: Screening. Asymptomatic. The lifetime risk of breast cancer based on the Tyrer-Cuzick Model is 6.6%. COMPARISON: Mammography: January 14, 2020 and studies dating back to August 23, 2013 TECHNIQUE: Digital breast tomosynthesis is performed in both the craniocaudal and mediolateral oblique views along with computer-aided detection (CAD). Synthesized 2D images are generated from the tomosynthesis. FINDINGS: There are scattered areas of fibroglandular density (ACR BI-RADS breast composition Category b). There are no significant masses, abnormal calcifications, or other abnormalities. MM/MM tomosynthesis screening BI IMPRESSION: There are no significant changes from prior study. ASSESSMENT: BI-RADS 1: Negative RECOMMENDATION: Routine annual mammography screening. This patient's information was entered into a reminder system with a target due date for their next mammogram.
== END 2021-01-06 12:14 | disposition home or self-care (01) ==
LOC: HO.MAMMO 12:13
PROVIDERS: PCP Internal Medicine; Visit Provider Internal Medicine
DX: Z12.31 Encounter for screening mammogram for malignant neoplasm of breast (principal)
CPT/HCPCS: 77063; 77067

== ENCOUNTER → 2021-01-09 13:15 | Outpatient (BNVA) | payer MEDICAID, SELFPAY | PROVIDERS: PCP Internal Medicine; Visit Provider Nurse Practitioner Family | DX: K59.04 Chronic idiopathic constipation (principal); K21.9 Gastro-esophageal reflux disease without esophagitis; K31.84 Gastroparesis; M17.0 Bilateral primary osteoarthritis of knee; M75.41 Impingement syndrome of right shoulder; M75.42 Impingement syndrome of left shoulder | CPT/HCPCS: 99212 ==

== ENCOUNTER → 2021-01-21 12:35 | Outpatient (BNVA) | payer MEDICAID, SELFPAY | PROVIDERS: Visit Provider Physician Assistant | DX: M75.82 Other shoulder lesions, left shoulder (principal); R20.2 Paresthesia of skin; M79.601 Pain in right arm; M79.602 Pain in left arm; S46.001D Unspecified injury of muscle(s) and tendon(s) of the rotator cuff of right shoulder, subsequent encounter | CPT/HCPCS: 99212 ==

== ENCOUNTER 2021-01-26 13:04 | Outpatient (REF) | payer MEDICAID, SELFPAY ==
--- NOTE | ~2021-01-26 | US_ITS ---
EXAMINATION: US RETROPERITONEAL LIMITED (RENAL ONLY) CLINICAL INFORMATION: Calculus of kidney. COMPARISON: Renal ultrasound 12/11/2020 TECHNIQUE: Real-time imaging of the kidneys. FINDINGS: RIGHT KIDNEY: 11.2 x 5.4 x 5.8 cm (SAG x AP x TRV). The kidney is normal in size, contour, and echogenicity. Renal cortical thickness is normal. There are 3 stones measuring 2 mm in the upper pole, and 2 mm and 6 mm in the lower pole. No focal parenchymal lesions or hydronephrosis. LEFT KIDNEY: 11.8 x 5.2 x 4.9 cm (SAG x AP x TRV). The kidney is normal in size, contour, and echogenicity. Renal cortical thickness is normal. There is a small 1 mm stone in the lower pole. No focal parenchymal lesions or hydronephrosis. US/US renal BI IMPRESSION: Bilateral renal stones.
== END 2021-01-26 13:05 | disposition home or self-care (01) ==
LOC: HO.US 13:04
PROVIDERS: PCP Internal Medicine; Visit Provider Urology
DX: N20.0 Calculus of kidney (principal)
CPT/HCPCS: 76775

== ENCOUNTER → 2021-02-12 13:25 | Outpatient (BNVA) | payer MEDICAID, SELFPAY | PROVIDERS: PCP Internal Medicine ==

== ENCOUNTER → 2021-02-16 13:03 | Outpatient (BNVA) | payer MEDICAID, SELFPAY | PROVIDERS: PCP Internal Medicine; Visit Provider Anesthesiology | DX: M10.012 Idiopathic gout, left shoulder (principal); M10.011 Idiopathic gout, right shoulder; M75.42 Impingement syndrome of left shoulder; M75.41 Impingement syndrome of right shoulder; M79.7 Fibromyalgia; E66.9 Obesity, unspecified; F17.210 Nicotine dependence, cigarettes, uncomplicated; Z68.39 Body mass index [BMI] 39.0-39.9, adult; Z88.1 Allergy status to other antibiotic agents; Z88.0 Allergy status to penicillin; Z88.8 Allergy status to other drugs, medicaments and biological substances; Z88.9 Allergy status to unspecified drugs, medicaments and biological substances | CPT/HCPCS: 99202 ==

== ENCOUNTER → 2021-03-23 08:06 | Outpatient (BNVA) | payer MEDICAID, SELFPAY | PROVIDERS: Visit Provider Anesthesiology ==

== ENCOUNTER 2021-04-02 09:38 | Outpatient (REF) | payer MEDICAID, SELFPAY ==
--- NOTE | 2021-04-02 09:40 | EMG_ITS ---
Bilateral median and ulnar motor and sensory studies were performed. Bilateral radial sensory studies were performed and paraspinal muscles were tested. IMPRESSION: Mild left median neuropathy across carpal tunnel. Otherwise, this study was unremarkable. MD ERMIAS Villalobos/KEENAN / [phone]
== END 2021-04-02 09:39 | disposition home or self-care (01) ==
LOC: HO.NEURO 09:38
PROVIDERS: Visit Provider Physician Assistant
DX: R20.0 Anesthesia of skin (principal); R20.2 Paresthesia of skin
CPT/HCPCS: 95886; 95911

== ENCOUNTER → 2021-04-10 12:30 | Outpatient (BNVA) | payer MEDICAID, SELFPAY | PROVIDERS: PCP Internal Medicine; Referring Provider Internal Medicine; Visit Provider Nurse Practitioner | DX: K59.04 Chronic idiopathic constipation (principal); K21.9 Gastro-esophageal reflux disease without esophagitis; K31.84 Gastroparesis | CPT/HCPCS: 99212 ==

== ENCOUNTER 2021-04-14 06:22 | Outpatient (REF) | payer MEDICAID, SELFPAY ==
--- NOTE | ~2021-04-14 | FL_ITS ---
EXAMINATION: XR FLUOROSCOPY WITH IMAGES CLINICAL INFORMATION: M19.011 - Primary osteoarthritis, right shoulder COMPARISON: Radiographs right shoulder 01/02/2020 TECHNIQUE: Fluoroscopy performed by Dr. Mor Rosario. Fluoroscopy time: under 1 minute. DAP: 0.612 Gycm2 Images: 1 FINDINGS: There is a spinal needle overlying the inferior aspect right acromioclavicular joint. There are degenerative changes acromioclavicular joint. No acromioclavicular separation. FL/FL guidance in treatment room IMPRESSION: Fluoroscopy for pain management procedure.
--- NOTE | ~2021-04-14 | FL_ITS ---
EXAMINATION: XR FLUOROSCOPY WITH IMAGES CLINICAL INFORMATION: M19.011 - Primary osteoarthritis, left shoulder COMPARISON: Radiographs left shoulder 01/02/2020 TECHNIQUE: Fluoroscopy performed by Dr. Mor Rosario. Fluoroscopy time: 0.5 minutes DAP: 3.16 Gycm2 Images: 2 FINDINGS: There is a spinal needle overlying the mid left acromioclavicular joint. On the other projection, the spinal needle tip is directed towards the inferior aspect acromium. The acromioclavicular alignment is normal. There are degenerative changes acromioclavicular joint and glenohumeral joint. FL/FL guidance in treatment room IMPRESSION: Fluoroscopy for pain management procedure.
== END 2021-04-14 06:23 | disposition home or self-care (01) ==
LOC: HO.RADIR 06:22
PROVIDERS: Visit Provider Anesthesiology
DX: M19.011 Primary osteoarthritis, right shoulder (principal); M19.012 Primary osteoarthritis, left shoulder; M75.52 Bursitis of left shoulder
CPT/HCPCS: 20610; J3300; Q9967

== ENCOUNTER → 2021-05-13 10:55 | Outpatient (BNVA) | payer MEDICAID, SELFPAY | PROVIDERS: PCP Internal Medicine; Visit Provider Anesthesiology ==

== ENCOUNTER → 2021-06-23 14:42 | Outpatient (BNVA) | payer MEDICAID, SELFPAY | PROVIDERS: PCP Internal Medicine; Referring Provider Internal Medicine; Visit Provider Nurse Practitioner Family | DX: R06.83 Snoring (principal); R40.0 Somnolence | CPT/HCPCS: 99202 ==

== ENCOUNTER → 2021-07-15 13:57 | Outpatient (BNVA) | payer MEDICAID, SELFPAY | PROVIDERS: PCP Internal Medicine; Referring Provider Internal Medicine; Visit Provider Internal Medicine Cardiovascular Disease | DX: R00.2 Palpitations (principal) | CPT/HCPCS: 93005; 99202 ==

== ENCOUNTER 2021-07-17 06:19 | Day surgery (SDC) | payer MEDICAID, SELFPAY ==
[2021-07-13 11:05] VITALS: BMI 39.5
--- NOTE | 2021-07-16 13:43 | P.CONAN_ITS ---
Documented by User: Sol Penn NP 07/16/21 13:46 HPI - Anesthesia Eval Consult details Narrative: 56yo F for Bilateral Acromioclavicular Joint Steroid Injection with Left Subdeltoid Bursa Steroid Injection Seen as new patient with Cardiolgoy 07/15/21 for palpitations. No chest pain/SOB. EKG WNL. Holter and Echo pending. Case reviewed with Dr Golden. OK to proceed/eval DOS. [facility] Active Problems Active Problems: All Active Problems (Updated 07/15/21 @ 14:25 by Urban Agrawal MD) Palpitations (Acute) Chronic idiopathic constipation (Acute) GERD (gastroesophageal reflux disease) (Acute) Gastroparesis (Acute) Sleep apnea (Acute) Tendonitis of left rotator cuff (Acute) Injury of tendon of right rotator cuff (Acute) Impingement syndrome of both shoulders (Acute) Primary osteoarthritis of both knees (Acute) Paresthesia and pain of both upper extremities (Acute) Arthritis of right acromioclavicular joint (Acute) Snoring (Acute) Daytime sleepiness (Acute) Bursitis of left shoulder (Acute) Arthritis of left acromioclavicular joint (Acute) Gout, arthritis (Acute) Renal calculi (Acute) Past Medical History Medical History (Updated 07/17/21 @ 06:41 by Fatmata Alex RN) Arthritis of left acromioclavicular joint Bursitis of left shoulder Class 2 obesity Fibromyalgia GERD (gastroesophageal reflux disease) Gout, arthritis History of depression HTN (hypertension) Osteoarthritis Renal calculi Renal colic Rotator cuff tendonitis Family History Family History Father Diabetes mellitus Hypercholesteremia Heart attack HTN (hypertension) Mother Diabetes mellitus HTN (hypertension) Heart attack Hypercholesteremia Cardiovascular disease Brother Liver cancer Brother Pancreatic cancer Brother Lymphoma Sister Cervical cancer Sister Cirrhosis of liver Family/Other Cancer Family/Other Ovarian cancer Surgical History Surgical History H/O lithotripsy History of endometrial ablation History of esophagogastroduodenoscopy (EGD) Hx of colonoscopy Hx of cystoscopy Social History Social History (Updated 07/15/21 @ 14:14 by CATY Feliz) Household Members: Family Alcohol intake: never Patient Tobacco Use Status: Former Tobacco user Quit Date: 1990 Tobacco use type: Cigarette Years Smoked: 25 +/- Second Hand Smoke Exposure: No Current occupational status: disabled Current occupation: rt handed Meds Allergies Allergy/AdvReac Type Severity Reaction Status Date / Time cephalexin [From KEFLEX] Allergy Intermediate RASH Verified 07/17/21 06:41 diazepam [From VALIUM] Allergy Intermediate Anxiety Verified 07/17/21 06:41 Penicillins Allergy Intermediate RASH Verified 07/17/21 06:41 Jakob Rosenthal Allergy Intermediate rash Uncoded 07/15/21 14:03 Home Medications Medication Instructions Recorded Confirmed Last Taken Type clonazepam 1 mg tablet 1 mg PO BID 02/19/20 07/15/21 Unknown History duloxetine 60 mg capsule,delayed 60 mg PO DAILY 02/19/20 07/15/21 Unknown History release (Cymbalta) fluticasone propionate 50 2 spray INTRANASAL DAILY 02/19/20 07/15/21 Unknown History mcg/actuation nasal spray,suspension folic acid 1 mg tablet 1 mg PO DAILY 02/19/20 07/15/21 Unknown History loratadine 10 mg tablet 10 mg PO DAILY 02/19/20 07/15/21 Unknown History meclizine 12.5 mg tablet 12.5 mg PO TID PRN 02/19/20 07/15/21 Unknown History topiramate 100 mg tablet (Topamax) 100 mg PO BID 02/19/20 07/15/21 Unknown History cholecalciferol (vitamin D3) 25 25 mcg PO DAILY 01/09/21 07/15/21 Unknown History mcg (1,000 unit) capsule topiramate 50 mg tablet 50 mg PO BID 01/09/21 07/15/21 Unknown History quetiapine 100 mg tablet (Seroquel) 50 mg PO BID tab 06/23/21 07/15/21 Unknown History hydrochlorothiazide 12.5 mg tablet 12.5 mg PO DAILY 07/15/21 07/15/21 Unknown History sumatriptan succinate 25 mg tablet 0 mg PO 07/15/21 07/15/21 Unknown History Exam Exam Date and Time: July 16, 2021 1343 Height,Weight and Vital Signs: Height 5 ft 3 in Weight 101.208 kg Narrative Narrative: EKG 06/2021 NSR 91/min, normal ECG, QTc 425 msec Assessment and Plan Assessment Anesthesia Assessment: Chart Reviewed Documented by User: Pk Golden MD 07/17/21 17:14 HPI - Anesthesia Eval Consult details Narrative: 56yo F for Bilateral Acromioclavicular Joint Steroid Injection with Left Subdeltoid Bursa Steroid Injection tingling and numbness bl upper and lower extremities . Seen as new patient with Cardiology 07/15/21 for palpitations. No chest pain/SOB. EKG WNL. Holter and Echo pending. As per Manager Copy OK to proceed . [facility] Past Medical History Medical History (Updated 07/17/21 @ 06:41 by Fatmata Alex RN) Arthritis of left acromioclavicular joint Bursitis of left shoulder Class 2 obesity Fibromyalgia GERD (gastroesophageal reflux disease) Gout, arthritis History of depression HTN (hypertension) Osteoarthritis Renal calculi Renal colic Rotator cuff tendonitis Family History Family History Father Diabetes mellitus Hypercholesteremia Heart attack HTN (hypertension) Mother Diabetes mellitus HTN (hypertension) Heart attack Hypercholesteremia Cardiovascular disease Brother Liver cancer Brother Pancreatic cancer Brother Lymphoma Sister Cervical cancer Sister Cirrhosis of liver Family/Other Cancer Family/Other Ovarian cancer Family history of problems with anesthesia: No Surgical History Surgical History H/O lithotripsy History of endometrial ablation History of esophagogastroduodenoscopy (EGD) Hx of colonoscopy Hx of cystoscopy History of Problems with Anesthesia: No Social History Social History (Updated 07/15/21 @ 14:14 by CATY Feliz) Household Members: Family Alcohol intake: never Patient Tobacco Use Status: Former Tobacco user Quit Date: 1990 Tobacco use type: Cigarette Years Smoked: 25 +/- Second Hand Smoke Exposure: No Current occupational status: disabled Current occupation: rt handed Meds Allergies Allergy/AdvReac Type Severity Reaction Status Date / Time cephalexin [From KEFLEX] Allergy Intermediate RASH Verified 07/17/21 06:41 diazepam [From VALIUM] Allergy Intermediate Anxiety Verified 07/17/21 06:41 Penicillins Allergy Intermediate RASH Verified 07/17/21 06:41 Jakob Rosenthal Allergy Intermediate rash Uncoded 07/15/21 14:03 Home Medications Medication Instructions Recorded Confirmed Last Taken Type clonazepam 1 mg tablet 1 mg PO BID 02/19/20 07/15/21 Unknown History duloxetine 60 mg capsule,delayed 60 mg PO DAILY 02/19/20 07/15/21 Unknown History release (Cymbalta) fluticasone propionate 50 2 spray INTRANASAL DAILY 02/19/20 07/15/21 Unknown History mcg/actuation nasal spray,suspension folic acid 1 mg tablet 1 mg PO DAILY 02/19/20 07/15/21 Unknown History loratadine 10 mg tablet 10 mg PO DAILY 02/19/20 07/15/21 Unknown History meclizine 12.5 mg tablet 12.5 mg PO TID PRN 02/19/20 07/15/21 Unknown History topiramate 100 mg tablet (Topamax) 100 mg PO BID 02/19/20 07/15/21 Unknown History cholecalciferol (vitamin D3) 25 25 mcg PO DAILY 01/09/21 07/15/21 Unknown History mcg (1,000 unit) capsule topiramate 50 mg tablet 50 mg PO BID 01/09/21 07/15/21 Unknown History quetiapine 100 mg tablet (Seroquel) 50 mg PO BID tab 06/23/21 07/15/21 Unknown History hydrochlorothiazide 12.5 mg tablet 12.5 mg PO DAILY 07/15/21 07/15/21 Unknown History sumatriptan succinate 25 mg tablet 0 mg PO 07/15/21 07/15/21 Unknown History Exam Airway Mallampati Class: IV Neck ROM: Limited Loose/Missing/Broken Teeth: Yes Heart: rrr Lungs: bl breath sounds Assessment and Plan Assessment Anesthesia Assessment: Anesthesia Plan Discussed Final Anesthetic Review Family History of Problems with Anesthesia: No History of Problems with Anesthesia: No ASA Class: III Final Preanesthetic Review: Meds/Allgs Chart Reviewed, Consent Obtained/Reviewed and Anes Risks/Benef Reviewed Patient Risk: Intermediate Procedure Risk: Intermediate Anesthetic Plan Anesthetic Plan: MAC: Disposition: Standard PACU
--- NOTE | ~2021-07-17 | FL_ITS ---
EXAMINATION: XR FLUOROSCOPY WITH IMAGES CLINICAL INFORMATION: Bilateral AC joint steroid injection. COMPARISON: None. TECHNIQUE: Fluoroscopy performed by Dr. Mor Rosario. Fluoroscopy time: 0.3 minutes DAP: 0.289 mGycm2 Images: 3 FINDINGS: There are needles positioned in the right and left AC joint without any contrast. The AC joint space is maintained normal. FL/FL guidance in OR IMPRESSION: Fluoroscopy guidance was provided to the referring physician for AC joint injection.
[2021-07-17 06:45] VITALS: BP 145/89; PULSE 102; RESP 16; TEMP 36.5; O2SAT 99
[2021-07-17] MEDS: Lactated Ringers 1,000 ML 100 ML IVCONT (07:02)
--- NOTE | 2021-07-17 08:21 | MHC.SHP ---
Pre-Procedural Eval Section A Date of Service: 07/17/21 The patient is an INPATIENT: No Changes since office visit: Yes Patient answered all questions The History & Physical has been completed within 30 days and I have reviewed it.: No Section B Chief Complaint: Arthritis of Left Acromioclavicular Joint,Bursitis Details of Present Illness: as above Relevant Family History (Specify if Yes): No Relevant Social History: Other (specify) Present Medications: None Medical History: No relevant PMH History of Previous Operations: No relevant previous surgery Allergies: Allergies Allergy/AdvReac Type Severity Reaction Status Date / Time cephalexin [From KEFLEX] Allergy Intermediate RASH Verified 07/17/21 06:41 diazepam [From VALIUM] Allergy Intermediate Anxiety Verified 07/17/21 06:41 Penicillins Allergy Intermediate RASH Verified 07/17/21 06:41 Jakob Rosenthal Allergy Intermediate rash Uncoded 07/15/21 14:03 Review of Systems Sugical H&P ROS: Negative: Respiratory, Neurological, Psychiatric, Hem-Onc, Allergic/Immunologic, Gastrointestinal, Genitourinary, Musculoskeletal, Integumentary, Endocrine and Eyes/Ears/Nose/Throat and Yes, Specify: Constitution (obesity) and Cardiovascular (dysrythmia) Exam Surgical H&P Exam: Normal: HEENT, Normal: Heart, Normal: Lungs, Normal: Extremities, Normal: Abdomen, Normal: Skin and Normal: Neurological Plan Diagnosis/Plan: Unchanged I have reviewed the history and physical and performed a pertinent physical examination on my patient. No changes have occurred unless specified.
--- NOTE | 2021-07-17 08:34 | P.OP_ITS ---
Operative Note Operative Note Date of Service: 07/17/21 Narrative: Milady is 56 years old female who came to OR for the bilateral intra-articular acromioclavicular joint injections fluoroscopy guided as well as subdeltoid bursa injection in the attempt to treatarthritis in the ac joints and bursitis of the left subdeltoid bursa .. After obtaining informed consent patient was brought to the operating room, She was positioned prone on operating table, [employer] monitors were applied and patient was moderate sedated. ? Time-out was performed delineating correct site, side, the nature of the procedure, patient's allergy, preoperative antibiotic if needed.? All operating room staff was participating in OR time-out procedure. Patient's right shoulder was prepped with duraprep and draped with sterile utility drapes.? C-arm was brought over operating field and picture the right AC joint was demonstrated on the screen. 22 gauge 3.5 inch needle was driven to? the right joint in tunnel vision fashion on anterior posterior and lateral views.When tip of the needle was sense to enter the joint injection of the Kenalog mixed with bupivacaine was performed, The needle was withdrawn , sterile bandaid was applied and attention was concentrated on the left side . Duraprep and drape was performed in similar fashion on the left and injection of the left AC joint was repeated into the left joint under fluoroscopy guidance. After that injection of the 8 mls of bupivacaine mixed with kenalog was performed through deltoid muscle into the presumable location of subdeltoid bursa without image guidance.? Total dose of Kenalog was 80 mg.? The patient tolerated procedure well.? Upon completion of the injections needle was removed sterile dressing was applied.? The patient was taken to the recovery room where she recovered uneventfully.? She went home without immediate complications.
--- NOTE | 2021-07-17 09:01 | P.BOP_ITS ---
Brief Operative Note Date of Service: 07/17/21 Pre-op diagnosis: acromioclavicular joints arthritis bilateral, subdeltoid left bursitis Procedure: intraarticular bilateral acromioclavicular joint injection and left subdeltoid bursa injection. Implants: none Surgeon: Mor Rosario MD Anesthesia: MAC Was an Second Hand used for this Procedure?: No Estimated blood loss (mL): 0 Pathology: none sent Condition: stable Disposition: PACU
[2021-07-17 09:05] VITALS: BP 120/82; PULSE 98; RESP 20; TEMP 36.5; O2SAT 98
[2021-07-17 09:20] VITALS: BP 143/107; PULSE 87; RESP 16; TEMP 36.1; O2SAT 96
== END 2021-07-17 09:57 | disposition home or self-care (01) ==
PROVIDERS: PCP Internal Medicine; Visit Provider Anesthesiology
PROC: 3E0R3GC Introduction of Other Therapeutic Substance into Spinal Canal, Percutaneous Approach (ICD-10-PCS; CPT 62322; principal; 2021-07-17 08:20)
DX: M19.012 Primary osteoarthritis, left shoulder (principal); M75.52 Bursitis of left shoulder; M75.82 Other shoulder lesions, left shoulder; M79.7 Fibromyalgia; M10.9 Gout, unspecified; Z79.899 Other long term (current) drug therapy; Z88.0 Allergy status to penicillin; Z88.1 Allergy status to other antibiotic agents; F17.210 Nicotine dependence, cigarettes, uncomplicated
CPT/HCPCS: 20610; 20605; J2250; J3010; J3300; Q9967

== ENCOUNTER → 2021-08-05 13:43 | Outpatient (REF) | payer MEDICAID, SELFPAY | LOC: HO.SL 13:43 | PROVIDERS: PCP Internal Medicine; Visit Provider Nurse Practitioner Family | DX: G47.33 Obstructive sleep apnea (adult) (pediatric) (principal); R06.83 Snoring; R40.0 Somnolence | CPT/HCPCS: 95806 ==

== ENCOUNTER → 2021-08-19 10:01 | Outpatient (BNVA) | payer MEDICAID, SELFPAY | PROVIDERS: PCP Internal Medicine; Visit Provider Nurse Practitioner Family | DX: Z13.89 Encounter for screening for other disorder (principal) ==

== ENCOUNTER 2021-08-21 12:54 | Outpatient (REF) | payer MEDICAID, SELFPAY ==
[2021-08-21 14:24] LABS: TSH reflex Free T4 1.46 uIU/mL (0.32-4.0)
== END 2021-08-21 12:55 | disposition home or self-care (01) ==
LOC: HO.LAB 12:54
PROVIDERS: Internal Medicine Cardiovascular Disease; PCP Internal Medicine; Visit Provider Nurse Practitioner Family
DX: R00.2 Palpitations (principal)
CPT/HCPCS: 36415; 84443

== ENCOUNTER → 2021-08-25 12:40 | Outpatient (REF) | payer MEDICAID, SELFPAY ==
--- NOTE | 2021-08-25 12:47 | HM_ITS ---
TEST PERFORMED: Cardiac event monitor. REQUESTING PHYSICIAN: Dr. Agrawal INDICATION: Palpitations. ENROLLMENT: 08/25/2021, to 09/18/2021; 24 days. FINDINGS: In the above monitoring period, the underlying rhythm is sinus. Rates ranged from 66 to 120 beats per minute. There were patient activations but no specific symptoms documented. During those times, heart rhythm was mostly sinus and sometimes mild sinus tachycardia. Otherwise, no significant arrhythmias noted during this monitoring. CONCLUSION: Cardiac event monitoring in the above period shows sinus rhythm and mild sinus tachycardia and no other arrhythmias. Cash Alvarez MD HS/MODL / [phone]
--- NOTE | 2021-08-25 12:47 | CA_ITS ---
Transthoracic Echocardiogram Patient (Last, First, Middle): Milady Dean, Gender: Female Date of : 1965 Age: 56 Procedure Date: 08/25/2021 Procedure Type: Transthoracic Echocardiogram Location: OP Height: 160.02 cm Weight: 102.51 kg BSA: 2.04 m2 Heart Rate: bpm BP: 120 / 88 mmHg Automatic Grinder Operator: SB Referring MD: Urban Agrawal MD Symptoms: R00.2 - Palpitations Study Quality: Adequate ECG Rhythm: Sinus Conclusions: - Normal left ventricular size and systolic function. There is mildly increased left ventricular wall thickness. The visually estimated ejection fraction is between 55-60%. Diastolic function is normal for age. - Normal right ventricular cavity size and systolic function. Findings Left Ventricle Normal left ventricular size and systolic function. There is mildly increased left ventricular wall thickness. The visually estimated ejection fraction is between 55-60%. Diastolic function is normal for age. Right Ventricle Normal right ventricular cavity size and systolic function. Atria Both atria are normal in size. Aortic Valve Normal aortic valve structure and function. There is no aortic valve stenosis. There is no aortic valve regurgitation. Mitral Valve Normal mitral valve structure and function. There is no mitral valve regurgitation. There is no mitral valve stenosis. Pulmonic Valve The pulmonic valve is normal. There is no pulmonic valve regurgitation. Tricuspid Valve Normal tricuspid valve structure and function. There is no tricuspid valve regurgitation. Tricuspid regurgitation envelope is inadequate for calculation of right ventricular systolic pressure. Normal right atrial pressure. Great Vessels All visible segments of the aorta are normal in size. The visualized portions of the pulmonary artery and branches are normal. Venous The inferior vena cava is normal in size and collapses greater than 50% with inspiration. Pericardium/Pleural There is no evidence of pericardial effusion. Prior Study Comparison No prior study available for comparison. Measurements 2D Linear Measurements IVSd: 1.18 0.6-0.9/0.6-1.0 cm LVIDd: 4.40 3.9-5.3/4.2-5.9 cm LVIDd Index: 2.16 2.4-3.2/2.2-3.1 cm/m2 LVIDs: 2.74 2.0-3.6 cm LVPWd: 0.90 0.7-1.1 cm LA Diam: 3.40 2.7-3.8/3.0-4.0 cm LAIDs Index: 1.67 1.5-2.3 cm/m2 LV Mass: 194.91 67-162/88-224 g LV Mass Index: 95.55 43-95/49-115 g/m2 LVOT Diam: 2.10 3.0+(-)1.3 cm Mitral Valve MV Pk E: 0.62 MV PK A: 0.61 MV Decel Time: 204.00 E/A: 1.00 E'Lateral: 6.64 E'Medial: 6.31 E/E' Med: 9.80 E/E' Lat: 9.30 PHT: 60.00 MVA PHT: 3.67 Decel Cascade: 3.02 Aortic Valve AoV Pk Garrett: 1.10 AoV Mn Garrett: 0.78 AoV VTI: 0.18 AoV Pk Grad: 5.00 Aov Mn Grad: 3.00 PALOMA Cont.VTI: 2.97 LVOT LVOT Pk Garrett: 0.86 LVOT Mn Garrett: 0.60 LVOT VTI: 0.16 LVOT Pk Grad: 3.00 LVOT Mn Grad: 2.00 LVOT Diam: 2.10 LVOT Area: 3.46 Diastolic Function MV Pk E: 0.62 MV Pk A: 0.61 E/A: 1.00 E'Medial: 6.31 E/E' Med: 9.80 E' Laterial: 6.64 E/E' Lat: 9.30 Right Ventricle TAPSE (mm): 23.50 TVS' Garrett: 9.95 Tricuspid Valve RA Press: 3.00 Great Vessels Aorta Sinus of Valsalva: 3.37 2.0-3.[address] Ridge: 2.71 1.7-3.4 cm Ao Asc: 3.00 2.1-3.4 cm Ao Arch: 3.00 Pulmonary Valve PV Pk Garrett: 0.85 Peak PV Grad: 3.00 Updated in Other Vendor System with Status of Final Urban Agrawal MD electronically signed on 08/30/2021 12:34:08 AM with status of Final
== END ==
LOC: HO.CARD 12:40
PROVIDERS: PCP Internal Medicine; Visit Provider Internal Medicine Cardiovascular Disease
DX: R00.2 Palpitations (principal)
CPT/HCPCS: 93270; 93306

== ENCOUNTER 2021-10-24 10:02 | Observation (INO) | payer MEDICAID, SELFPAY ==
--- NOTE | ~2021-10-24 | CT_ITS ---
EXAMINATION: CT ABDOMEN AND PELVIS WITHOUT CONTRAST CLINICAL INFORMATION: Left flank pain. History of stones. COMPARISON: Ultrasound 01/26/2021. Prior CT 04/19/2020 TECHNIQUE: Multidetector volumetric imaging was performed from the lung bases through the pubic symphysis. Sagittal and coronal reformatted images were obtained on the technologist workstation. This CT examination was performed using dose optimization techniques as appropriate, variously including the following: *Automated exposure control *Adjustment of mA and/or kV according to patient size (this includes techniques or standardized protocols for targeted exams where dose is matched to indication/reason for exam; i.e. extremities or head) *Use of iterative reconstruction technique DLP 1180 FINDINGS: The lack of intravenous contrast limits evaluation of the solid visceral organs including the liver, spleen, pancreas, and kidneys. LUNG BASES: The visualized lung bases are unremarkable. LIVER, GALLBLADDER, AND BILIARY TREE: Limited non-contrast evaluation is normal. No gross focal hepatic lesion. Normal liver size and contour. No gross biliary ductal dilation. The gallbladder is unremarkable with no evidence of radiopaque gallstones, gallbladder wall thickening, or obvious pericholecystic inflammatory changes. PANCREAS: Limited non-contrast evaluation is normal. No viviana-pancreatic fluid. SPLEEN: Limited non-contrast evaluation is normal. ADRENAL GLANDS: Normal; no adrenal mass. KIDNEYS AND URETERS: Several nonobstructing right renal calculi are seen the largest up to 4 mm in the lower pole the right kidney. Stone to skin distance 11.7 cm. No right renal mass or hydronephrosis. There is moderate left hydroureteronephrosis with asymmetric left perinephric fat stranding. The dilated left ureter is followed to the pelvis where there is a 8 mm obstructing calculus. Further distally in the left ureter appears decompressed. Punctate 1 mm left mid-upper nonobstructing renal calculi are seen in image 34/97. GASTROINTESTINAL TRACT: There may be a small hiatal hernia. The stomach and small bowel are nondilated. No evidence of appendicitis. Scattered colonic diverticulosis without evidence of colitis or diverticulitis. ABDOMINAL WALL: There is fat in the left inguinal canal. LYMPH NODES: No pathologically enlarged lymph nodes in the abdomen or pelvis. VASCULAR: Normal caliber abdominal aorta. BLADDER: Unremarkable. PELVIC VISCERA: Normal noncontrast appearance of the uterus and ovaries. OSSEOUS STRUCTURES: Severe lower lumbar facet arthropathy. Degenerative disc disease at L5-S1. No acute osseous abnormality. CT/CT abdomen pelvis wo con IMPRESSION: In addition to nonobstructing bilateral renal calculi, there is an 8 mm left distal ureteral calculus that results in moderate left hydroureteronephrosis.
[2021-10-24 10:06] VITALS: BP 159/93; PULSE 90; RESP 18; TEMP 36.6; O2SAT 98; BMI 39.1
--- NOTE | 2021-10-24 12:04 | ED_ITS ---
HPI - Female Genitourinary General Chief complaint: Urogenital-Female Stated complaint: kidney stones Time Seen by Provider: 10/24/21 11:46 Source: patient Mode of arrival: ambulatory Limitations: language barrier History of Present Illness HPI Narrative: 56-year-old Croatian-speaking female presents with left-sided flank pain that started at 05:00 this morning. The pain is constant, is a 9/10, and she is not nauseous. The pain radiates to her left lower abdomen and groin. Patient took 5 mg of oxycodone at 07:00 that she had left over from her recent shoulder surgery, but it did not help. Patient has a history of kidney stones with lithotripsy and ureteral stent. Patient denies chest pain, shortness of breath, dysuria, hematuria, vomiting, fevers She is postmenopausal. She is not vaccinated for COVID Related Data Home Medications Medication Instructions Recorded Confirmed clonazepam 1 mg tablet 1 mg PO BID 02/19/20 07/15/21 duloxetine 60 mg capsule,delayed 60 mg PO DAILY 02/19/20 07/15/21 release (Cymbalta) fluticasone propionate 50 2 spray intranasal DAILY 02/19/20 07/15/21 mcg/actuation nasal spray,suspension folic acid 1 mg tablet 1 mg PO DAILY 02/19/20 07/15/21 loratadine 10 mg tablet 10 mg PO DAILY 02/19/20 07/15/21 meclizine 12.5 mg tablet 12.5 mg PO TID PRN Dizziness 02/19/20 07/15/21 topiramate 100 mg tablet (Topamax) 100 mg PO BID 02/19/20 07/15/21 cholecalciferol (vitamin D3) 25 25 mcg PO DAILY 01/09/21 07/15/21 mcg (1,000 unit) capsule topiramate 50 mg tablet 50 mg PO BID 01/09/21 07/15/21 quetiapine 100 mg tablet (Seroquel) 50 mg PO BID 06/23/21 07/15/21 hydrochlorothiazide 12.5 mg tablet 12.5 mg PO DAILY 07/15/21 07/15/21 sumatriptan succinate 25 mg tablet 0 mg PO 07/15/21 07/15/21 Previous Rx's Medication Instructions Recorded ondansetron 4 mg disintegrating 4 mg PO Q8H PRN nausea and 10/12/20 tablet vomiting #20 tabs allopurinol 100 mg tablet 100 mg PO DAILY #90 tabs 02/03/21 meloxicam 15 mg tablet 15 mg PO DAILY #30 tabs 02/13/21 linaclotide 290 mcg capsule 290 mcg PO DAILY #30 caps 04/10/21 (Linzess) magnesium oxide 400 mg (241.3 mg 400 mg PO BID #60 tabs 04/10/21 magnesium) tablet metoclopramide HCl 5 mg tablet 5 mg PO .TIDAC #90 tabs 04/10/21 sennosides 8.6 mg capsule (senna) 17.2 mg PO BID constipation 30 04/10/21 days #120 caps lansoprazole 30 mg capsule,delayed 30 mg PO DAILY #30 caps 07/31/21 release tizanidine 4 mg tablet 4 mg PO BID PRN muscle spasticity 08/26/21 30 days #60 tabs pyridoxine (vitamin B6) 100 mg 100 mg PO DAILY 90 days #90 tabs 08/27/21 tablet tramadol 50 mg tablet 50 mg PO Q6H PRN pain #120 tabs 09/28/21 Allergies Allergy/AdvReac Type Severity Reaction Status Date / Time cephalexin [From KEFLEX] Allergy Intermediate RASH Verified 07/17/21 06:41 diazepam [From VALIUM] Allergy Intermediate Anxiety Verified 07/17/21 06:41 Penicillins Allergy Intermediate RASH Verified 07/17/21 06:41 Jakob Rosenthal Allergy Intermediate rash Uncoded 07/15/21 14:03 Review of Systems Constitutional: Constitutional: Denies body ache(s), Denies chills, Denies fatigue, Denies fever(s), Denies malaise and Denies weakness Eyes: Eyes: Denies diplopia Cardiovascular: Cardiovascular: Denies chest pain, Denies syncope, Denies leg edema, Denies lightheadedness, Denies Loss of Consciousness, Denies palpitations and Denies dyspnea Respiratory: Respiratory: Denies chest congestion, Denies cough and Denies dyspnea Gastrointestinal: Gastrointestinal: Reports abdominal pain, Denies hematochezia, Denies constipation, Denies diarrhea, Reports nausea and Denies vomiting Genitourinary: Genitourinary: Denies abnormal vaginal bleeding, Denies hematuria, Denies difficulty voiding, Denies dysuria, Denies pelvic pain, Reports flank pain, Denies urinary urgency, Denies vaginal discharge and Denies vaginal odor Musculoskeletal: Musculoskeletal: Reports back pain Neurologic: Denies confusion, Denies syncope and Denies weakness Psychiatric: Psychiatric: Denies anxiety, Denies confusion and Denies depression Endocrine: Endocrine: Denies fatigue and Denies palpitations PMFSH Past Medical History Medical History Arthritis of left acromioclavicular joint Bursitis of left shoulder Class 2 obesity Fibromyalgia GERD (gastroesophageal reflux disease) Gout, arthritis History of depression HTN (hypertension) Osteoarthritis Renal calculi Renal colic Rotator cuff tendonitis Surgical History H/O lithotripsy History of endometrial ablation History of esophagogastroduodenoscopy (EGD) Hx of colonoscopy Hx of cystoscopy Family History Family History Father Diabetes mellitus Hypercholesteremia Heart attack HTN (hypertension) Mother Diabetes mellitus HTN (hypertension) Heart attack Hypercholesteremia Cardiovascular disease Brother Liver cancer Brother Pancreatic cancer Brother Lymphoma Sister Cervical cancer Sister Cirrhosis of liver Family/Other Cancer Family/Other Ovarian cancer Social History Social History (Updated 07/15/21 @ 14:14 by CATY Feliz) Household Members: Family Alcohol intake: never Patient Tobacco Use Status: Former Tobacco user Quit Date: 1990 Tobacco use type: Cigarette Years Smoked: 25 +/- Second Hand Smoke Exposure: No Advance Directives: No Current occupational status: disabled Current occupation: rt handed Physical Exam Vital Signs: Vital Signs: Last Vital Signs Temp 98.2 F 10/24/21 14:08 Pulse 87 10/24/21 14:08 Resp 16 10/24/21 14:08 BP 141/81 H 10/24/21 14:08 Pulse Ox 98 10/24/21 14:08 O2 Del Method 10/24/21 14:08 BMI result Body Mass Index 39.1 Const: General: No confusion Nutritional Appearance: well nourished Orientation/consciousness: No confusion Limitations: no limitations Eyes: Conjunctivae: conjunctivae normal Pupils: Equal, round and reactive pupils present EOM: EOMs intact bilaterally Neck: Neck: Yes full ROM, Yes no lymphadenopathy and Yes supple Resp: Effort & Inspection: normal respiratory effort and able to speak in complete sentences Auscultation: clear to auscultation bilaterally, no crackles, no rales, no rhonchi and no wheezes Cardio: Rate: regular rate Rhythm: regular rhythm Heart sounds: S1 normal heart sound present and S2 normal heart sound present GI: Inspection: Yes normal to inspection Palpation (GI): Soft to palpation, nontender, no guarding and not rigid Percussion: Yes normal to percussion Auscultation: normal bowel sounds : General: Yes CVA tenderness on the left Back/Spine/Pelvis: Back: CVA tenderness Skin: General skin exam: no rashes or lesions noted Neuro: General: No confusion Cranial nerves: Yes Equal, round and reactive pupils present Extrem: General: Yes normal to inspection and Yes full ROM Psych: Appearance: grossly normal Affect: normal affect Attitude: cooperative Thought process: Normal thought process present Course Course Course Narrative: 56-year-old Croatian-speaking female with a history of kidney stones, with the trip C, and ureteral stent, presents for sudden onset left-sided flank pain that occurred at 05:00 this morning. Patient has had no dysuria or hematuria, no fevers. On exam, patient is mildly hypertensive, afebrile, vitals otherwise stable. Patient is in obvious distress from pain. Patient has benign abdominal exam, but has severe left-sided CVA tenderness. Will get labs, urine, CT abdomen pelvis, gave fluids, morphine, ketorolac, Zofran. Anticipate urology consult Reevaluation(s) Reevaluation #1: Patient has an 8 mm obstructing stone in her left ureter. [facility] texted information and CT results with Dr. Medrano. Labs are unremarkable. Awaiting urine. Patient's pain now is 4/10, she is more comfortable. Patient would rather go home, I discussed that with an obstructing stone, she will need to have a procedure, the stone will not pass on its own. Patient stated that she would agree to be admitted if she could have treatment for her obstructing stone tomorrow. FINDINGS: The lack of intravenous contrast limits evaluation of the solid visceral organs including the liver, spleen, pancreas, and kidneys. LUNG BASES: The visualized lung bases are unremarkable.? LIVER, GALLBLADDER, AND BILIARY TREE: Limited non-contrast evaluation is normal. No gross focal hepatic lesion. Normal liver size and contour.? No gross biliary ductal dilation. The gallbladder is unremarkable with no evidence of radiopaque gallstones, gallbladder wall thickening, or obvious pericholecystic inflammatory changes.? PANCREAS: Limited non-contrast evaluation is normal.? No viviana-pancreatic fluid.? SPLEEN: Limited non-contrast evaluation is normal. ? ADRENAL GLANDS: Normal; no adrenal mass.? KIDNEYS AND URETERS: Several nonobstructing right renal calculi are seen the largest up to 4 mm in the lower pole the right kidney. Stone to skin distance 11.7 cm. No right renal mass or hydronephrosis. There is moderate left hydroureteronephrosis with asymmetric left perinephric fat stranding. The dilated left ureter is followed to the pelvis where there is a 8 mm obstructing calculus. Further distally in the left ureter appears decompressed. Punctate 1 mm left mid-upper nonobstructing renal calculi are seen in image 34/97. GASTROINTESTINAL TRACT: There may be a small hiatal hernia. The stomach and small bowel are nondilated. No evidence of appendicitis. Scattered colonic diverticulosis without evidence of colitis or diverticulitis.? ABDOMINAL WALL: There is fat in the left inguinal canal.? LYMPH NODES: No pathologically enlarged lymph nodes in the abdomen or pelvis. VASCULAR: Normal caliber abdominal aorta. BLADDER: Unremarkable.? PELVIC VISCERA: Normal noncontrast appearance of the uterus and ovaries.? OSSEOUS STRUCTURES: Severe lower lumbar facet arthropathy. Degenerative disc disease at L5-S1. No acute osseous abnormality.? CT/CT abdomen pelvis wo con IMPRESSION: In addition to nonobstructing bilateral renal calculi, there is an 8 mm left distal ureteral calculus that results in moderate left hydroureteronephrosis. ? Reevaluation #2: Dr Medrano would like pt admitted for his consult tomorrow. [facility] texted Dr [place], hospitalist, to admit patient. MDM - Female Genitourinary Lab Data Result diagrams: 10/24/21 12:36 10/24/21 12:36 Labs: Lab Results 10/24/21 10/24/21 10/24/21 Range/Units 12:36 12:36 12:39 WBC 10.7 (4.8-10.8) X10*3/uL RBC 4.84 (4.20-5.50) X10*6/uL Hgb 14.8 (12.0-16.0) g/dl Hct 43.8 (37.0-47.0) % MCV 90.5 (80.0-98.0) fL MCH 30.6 (27.0-33.0) pg MCHC 33.8 (31.0-35.0) g/dl RDW 13.2 (11.0-16.0) % Plt Count 223 (160-400) X10*3/uL MPV 11.5 (9.4-12.3) fL Immature Gran % (Auto) 0.3 (0.0-0.4) % Neut % (Auto) 81.0 H (45-73) % Lymph % (Auto) 10.9 L (20-40) % [place] % (Auto) 7.3 (2-11) % Eos % (Auto) 0.2 (0-4) % Baso % (Auto) 0.3 (0-2) % Lymph # (Auto) 1.2 (1.2-4.9) X10*3/uL [place] # (Auto) 0.8 (0.1-1.2) X10*3/uL Eos # (Auto) 0.0 (0.0-0.4) X10*3/uL Baso # (Auto) 0.0 (0.0-0.2) X10*3/uL Abs Immat Gran (auto) 0.03 (0.00-0.03) X10*3/uL Absolute Neuts (auto) 8.6 H (2.0-8.3) x10*3/uL Absolute Nucleated RBC 0.000 (0.0-0.012) X10*3/uL Nucleated RBC % (auto) 0.0 (0.0-0.2) /100WBC Sodium 138 (135-145) mmol/L Potassium 4.0 (3.3-5.1) mmol/L Chloride 107 (96-108) mmol/L Carbon Dioxide 23 (22-29) mmol/L Anion Gap 12 (12-20) BUN 18 H (9-16) mg/dL Creatinine 1.17 (0.5-1.4) mg/dL Estim Creat Clear Calc 63.6 Estimated GFR 48 Random Glucose 127 H (60-115) mg/dL Calcium 8.9 (8.4-10.2) mg/dL Total Bilirubin 0.8 (0.0-1.0) mg/dL AST 27 D (5-31) U/L ALT 35 H (0-31) U/L Alkaline Phosphatase 92 (39-117) U/L Total Protein 6.4 L (6.5-8.0) g/dL Albumin 4.0 (3.5-5.0) g/dL Urine Color Urine Appearance Urine pH (5.0-8.0) Ur Specific [place] (1.005-1.025) Urine Protein (NEG-TRACE) MG/DL Urine Glucose (UA) (NEG) MG/DL Urine Ketones (NEG) MG/DL Urine Blood (NEG) Urine Nitrite (NEG) Ur Leukocyte Esterase (NEG) Urine RBC (0) /HPF Urine WBC (0-4) /HPF Ur Squamous Epith Cells /LPF Urine Bacteria /LPF COVID-19 ([facility]ELYN) Negative (Negative) COVID-19 Clin Com See Note 10/24/21 Range/Units 14:25 WBC (4.8-10.8) X10*3/uL RBC (4.20-5.50) X10*6/uL Hgb (12.0-16.0) g/dl Hct (37.0-47.0) % MCV (80.0-98.0) fL MCH (27.0-33.0) pg MCHC (31.0-35.0) g/dl RDW (11.0-16.0) % Plt Count (160-400) X10*3/uL MPV (9.4-12.3) fL Immature Gran % (Auto) (0.0-0.4) % Neut % (Auto) (45-73) % Lymph % (Auto) (20-40) % [place] % (Auto) (2-11) % Eos % (Auto) (0-4) % Baso % (Auto) (0-2) % Lymph # (Auto) (1.2-4.9) X10*3/uL [place] # (Auto) (0.1-1.2) X10*3/uL Eos # (Auto) (0.0-0.4) X10*3/uL Baso # (Auto) (0.0-0.2) X10*3/uL Abs Immat Gran (auto) (0.00-0.03) X10*3/uL Absolute Neuts (auto) (2.0-8.3) x10*3/uL Absolute Nucleated RBC (0.0-0.012) X10*3/uL Nucleated RBC % (auto) (0.0-0.2) /100WBC Sodium (135-145) mmol/L Potassium (3.3-5.1) mmol/L Chloride (96-108) mmol/L Carbon Dioxide (22-29) mmol/L Anion Gap (12-20) BUN (9-16) mg/dL Creatinine (0.5-1.4) mg/dL Estim Creat Clear Calc Estimated GFR Random Glucose (60-115) mg/dL Calcium (8.4-10.2) mg/dL Total Bilirubin (0.0-1.0) mg/dL AST (5-31) U/L ALT (0-31) U/L Alkaline Phosphatase (39-117) U/L Total Protein (6.5-8.0) g/dL Albumin (3.5-5.0) g/dL Urine Color YELLOW Urine Appearance CLEAR Urine pH 6.0 (5.0-8.0) Ur Specific [place] 1.010 (1.005-1.025) Urine Protein NEG (NEG-TRACE) MG/DL Urine Glucose (UA) NEG (NEG) MG/DL Urine Ketones NEG (NEG) MG/DL Urine Blood TRACE (NEG) Urine Nitrite NEG (NEG) Ur Leukocyte Esterase NEG (NEG) Urine RBC 1-4 (0) /HPF Urine WBC 1-4 (0-4) /HPF Ur Squamous Epith Cells 2+ /LPF Urine Bacteria 2+ /LPF COVID-19 ([facility]) (Negative) COVID-19 Clin Com Discharge Plan Discharge Clinical Impression: Hydronephrosis with obstructing calculus Patient Disposition: Admitted As Inpatient
[2021-10-24 12:40] VITALS: BP 138/69; PULSE 83; RESP 20; TEMP 36.9; O2SAT 99
[2021-10-24 12:42] LABS: MANUAL DIFF FLAG NO
[2021-10-24 12:43] LABS: Basophils Percent Auto 0.3 % (0-2); Eosinophils Percent Auto 0.2 % (0-4); Hematocrit 43.8 % (37.0-47.0); Hemoglobin 14.8 g/dl (12.0-16.0); Imm Gran Abs Auto 0.03 X10*3/uL (0.00-0.03); Imm Gran Pct Auto 0.3 % (0.0-0.4); Lymphocytes Absolute Auto 1.2 X10*3/uL (1.2-4.9); Lymphocytes Percent Auto 10.9 % (20-40); Mean Corpuscular HGB Conc 33.8 g/dl (31.0-35.0); Mean Corpuscular Hemoglobin 30.6 pg (27.0-33.0); Mean Corpuscular Volume 90.5 fL (80.0-98.0); Mean Platelet Volume 11.5 fL (9.4-12.3); Monocytes Absolute Auto 0.8 X10*3/uL (0.1-1.2); Monocytes Percent Auto 7.3 % (2-11); Neutrophils Absolute Auto 8.6 x10*3/uL (2.0-8.3); Platelet Count 223 X10*3/uL (160-400); Red Blood Count 4.84 X10*6/uL (4.20-5.50); Red Cell Distribution Width 13.2 % (11.0-16.0); White Blood Count 10.7 X10*3/uL (4.8-10.8)
[2021-10-24] MEDS: ondansetron HCL 4 MG/2 ML VIAL IVPUSH (12:46)
[2021-10-24] MEDS: Ketorolac Tromethamine 30 MG/ML VIAL IVPUSH (12:46)
[2021-10-24] MEDS: Morphine Sulfate 4 MG/ML CARTRIDGE IVPUSH (12:46)
[2021-10-24] MEDS: 0.9 % Sodium Chloride 1,000 ML 999 ML IV (12:51)
[2021-10-24 13:00] LABS: Alanine Aminotransferase 35 U/L (0-31); Alkaline Phosphatase 92 U/L (39-117); Anion Gap 12 (12-20); Aspartate Amino Transferase 27 U/L (5-31); Bilirubin Total 0.8 mg/dL (0.0-1.0); Blood Urea Nitrogen 18 mg/dL (9-16); Calcium 8.9 mg/dL (8.4-10.2); Carbon Dioxide 23 mmol/L (22-29); Chloride 107 mmol/L (96-108); Creatinine Clr Calc Pharmacy 63.6; Estimated Glomerular Filt Rate 48; Glucose Random 127 mg/dL (60-115); Sodium 138 mmol/L (135-145); Total Protein 6.4 g/dL (6.5-8.0)
[2021-10-24 13:10] LABS: COVID-19 Test Negative (Negative); IDNOW Serial# 55D5AD1C
[2021-10-24 14:08] VITALS: BP 141/81; PULSE 87; RESP 16; TEMP 36.8; O2SAT 98
[2021-10-24 14:31] LABS: Appearance Urine CLEAR; Color Urine YELLOW; Glucose Urine UA NEG (NEG); Leukocyte Esterase Urine NEG (NEG); Nitrite Urine NEG (NEG); UACC Culture Trigger NO; Urine Blood TRACE (NEG); Urine Ketones NEG (NEG); Urine Protein NEG (NEG-TRACE)
[2021-10-24 15:01] LABS: Bacteria Urine 2+ /LPF; Squamous Epithelial Cell Urine 2+ /LPF
[2021-10-24 15:58] VITALS: BP 137/74; PULSE 80; RESP 18; O2SAT 97
--- NOTE | 2021-10-24 17:07 | PHA.MEDREC ---
Pharmacy Consult ? Medication Reconciliation Pharmacy has completed the medication reconciliation.
--- NOTE | 2021-10-24 18:09 | P.HPHOSP_ITS ---
History of Present Illness Date of Service: 10/24/21 Chief Complaint: abd pain 56-year-old Thai-speaking female came to the hospital because of left flank pain-going to back,02/01, mostly constant, she tried tramadol/oxycodone at home did not help ,she has history of nephrolithiasis(she gets on and off pain right and left-sided both), this time her pain is not improving and feel nauseated, having intractable pain so decided to come to the hospital. Patient has history of renal stones and lithotripsy and ureteral stent as per patient. Patient denies any fever or chills or any burning with urination or chest pain or shortness of breath or weakness or numbness. CT abdomen done:CT/CT abdomen pelvis wo con IMPRESSION: In addition to nonobstructing bilateral renal calculi, there is an 8 mm left distal ureteral calculus that results in moderate left hydroureteronephrosis.? Patient was given morphine, Zofran, ketorolac she is still having lot of pain-ED requested admission for renal colic. CBC seems fine, has TONIO. Review of Systems Review of Systems: As above. Yes all other systems are reviewed and are negative [facility] Medical History Arthritis of left acromioclavicular joint Bursitis of left shoulder Class 2 obesity Fibromyalgia GERD (gastroesophageal reflux disease) Gout, arthritis History of depression HTN (hypertension) Osteoarthritis Renal calculi Renal colic Rotator cuff tendonitis Family History Father Diabetes mellitus Hypercholesteremia Heart attack HTN (hypertension) Mother Diabetes mellitus HTN (hypertension) Heart attack Hypercholesteremia Cardiovascular disease Brother Liver cancer Brother Pancreatic cancer Brother Lymphoma Sister Cervical cancer Sister Cirrhosis of liver Family/Other Cancer Family/Other Ovarian cancer Surgical History H/O lithotripsy History of endometrial ablation History of esophagogastroduodenoscopy (EGD) Hx of colonoscopy Hx of cystoscopy Social History Household Members: Family Alcohol intake: never Patient Tobacco Use Status: Former Tobacco user Quit Date: 1990 Tobacco use type: Cigarette Years Smoked: 25 +/- Second Hand Smoke Exposure: No Advance Directives: No Current occupational status: disabled Current occupation: rt handed Meds Allergies Allergy/AdvReac Type Severity Reaction Status Date / Time cephalexin [From KEFLEX] Allergy Intermediate RASH Verified 07/17/21 06:41 diazepam [From VALIUM] Allergy Intermediate Anxiety Verified 07/17/21 06:41 Penicillins Allergy Intermediate RASH Verified 07/17/21 06:41 Jakob Rosenthal Allergy Intermediate rash Uncoded 07/15/21 14:03 Active Medications: Current Medications Lactated Ringer's (Lr) 1,000 mls @ 100 mls/hr IVCONT .Q10H BING Morphine Sulfate (Morphine Sulfate 4 Mg/Ml Cartridge) 3 mg IVPUSH Q4H PRN; Protocol PRN Reason: Pain, Mild (Pain Scale 1-3) Ondansetron HCl (Ondansetron Hcl 4 Mg/2 Ml Vial) 4 mg IVPUSH Q4H PRN PRN Reason: nausea Pharmacy Consult (Consult Rx Perform Med Rec) 1 each MISCELLANE ONCE PRN PRN Reason: Consult order Sodium Chloride (0.9 % Sodium Chloride Flush 3 Ml Syringe) 3 ml IVFLUSH QSHIFT BING Tamsulosin HCl (Tamsulosin Hcl 0.4 Mg Capsule) 0.4 mg PO DAILY [facility] Home Medications Medication Instructions Recorded Confirmed Last Taken Type duloxetine 60 mg capsule,delayed 60 mg PO BID 02/19/20 10/24/21 10/23/21 History release (Cymbalta) fluticasone propionate 50 2 spray intranasal DAILY 02/19/20 10/24/21 10/23/21 History mcg/actuation nasal spray,suspension folic acid 1 mg tablet 1 mg PO DAILY 02/19/20 10/24/21 10/23/21 History loratadine 10 mg tablet 10 mg PO DAILY 02/19/20 10/24/21 10/23/21 History meclizine 12.5 mg tablet 12.5 mg PO TID PRN Dizziness 02/19/20 10/24/21 10/23/21 History cholecalciferol (vitamin D3) 25 25 mcg PO DAILY 01/09/21 10/24/21 10/23/21 History mcg (1,000 unit) capsule topiramate 50 mg tablet 50 mg PO BID 01/09/21 10/24/2110/23/22 History quetiapine 100 mg tablet (Seroquel) 50 mg PO BEDTIME PRN Insomnia 06/23/21 10/24/21 10/23/21 History hydrochlorothiazide 12.5 mg tablet 12.5 mg PO DAILY 07/15/21 10/24/21 10/23/21 History sumatriptan succinate 25 mg tablet 5 mg PO ONCE PRN Migraine Headache 07/15/21 10/24/21 Unknown History buspirone 5 mg tablet 1 tab PO DAILY 10/24/21 10/24/21 10/23/21 History clonazepam 0.5 mg tablet 1 tab PO DAILY PRN Anxiety 10/24/21 10/24/21 Unknown History Physical Exam Vital Signs and Narrative: Vital Signs: Last Vital Signs Temp 98.2 F 10/24/21 14:08 Pulse 80 10/24/21 15:58 Resp 18 10/24/21 15:58 BP 137/74 10/24/21 15:58 Pulse Ox 97 10/24/21 15:58 O2 Del Method 10/24/21 15:58 BMI result Body Mass Index 39.1 Appearance: Alert.? Oriented X3.?in pain. Eyes: Pupils equal, round and reactive to light.? Sclera nonicteric.? ENT: Pharynx normal.? Moist mucous membranes. cvs: rrr, [id number] , no murmur res: clear to auscultation ,no rhonchii or wheezing abd: no rebound or guarding ,left flank pain, bs present. ext pulses present , no cyanosis . neuro: axo3 , nonfocal. Results Labs CBC and Chem 7: 10/24/21 12:36 10/24/21 12:36 Labs: Laboratory Results - last 24 hr 10/24/21 10/24/21 10/24/21 12:36 12:36 12:39 MCV 90.5 MCH 30.6 MCHC 33.8 RDW 13.2 Plt Count 223 MPV 11.5 Immature Gran % (Auto) 0.3 Neut % (Auto) 81.0 H Lymph % (Auto) 10.9 L [place] % (Auto) 7.3 Eos % (Auto) 0.2 Baso % (Auto) 0.3 Lymph # (Auto) 1.2 [place] # (Auto) 0.8 Eos # (Auto) 0.0 Baso # (Auto) 0.0 Abs Immat Gran (auto) 0.03 Absolute Neuts (auto) 8.6 H Absolute Nucleated RBC 0.000 Nucleated RBC % (auto) 0.0 Anion Gap 12 Estim Creat Clear Calc 63.6 Estimated GFR 48 Random Glucose 127 H Calcium 8.9 Total Bilirubin 0.8 AST 27 D ALT 35 H Alkaline Phosphatase 92 Total Protein 6.4 L Albumin 4.0 Urine Color Urine Appearance Urine pH Ur Specific [place] Urine Protein Urine Glucose (UA) Urine Ketones Urine Blood Urine Nitrite Ur Leukocyte Esterase Urine RBC Urine WBC Ur Squamous Epith Cells Urine Bacteria COVID-19 ([facility]) Negative COVID-19 Clin Com See Note 10/24/21 14:25 MCV MCH MCHC RDW Plt Count MPV Immature Gran % (Auto) Neut % (Auto) Lymph % (Auto) [place] % (Auto) Eos % (Auto) Baso % (Auto) Lymph # (Auto) [place] # (Auto) Eos # (Auto) Baso # (Auto) Abs Immat Gran (auto) Absolute Neuts (auto) Absolute Nucleated RBC Nucleated RBC % (auto) Anion Gap Estim Creat Clear Calc Estimated GFR Random Glucose Calcium Total Bilirubin AST ALT Alkaline Phosphatase Total Protein Albumin Urine Color YELLOW Urine Appearance CLEAR Urine pH 6.0 Ur Specific [place] 1.010 Urine Protein NEG Urine Glucose (UA) NEG Urine Ketones NEG Urine Blood TRACE Urine Nitrite NEG Ur Leukocyte Esterase NEG Urine RBC 1-4 Urine WBC 1-4 Ur Squamous Epith Cells 2+ Urine Bacteria 2+ COVID-19 ([facility]) COVID-19 Clin Com Imaging Radiologist's Impressions: Impressions Abdomen/Pelvis CT 10/24/21 12:25 IMPRESSION: In addition to nonobstructing bilateral renal calculi, there is an 8 mm left distal ureteral calculus that results in moderate left hydroureteronephrosis. Assessment and Plan (1) Colic, ureteral: Status: Acute (2) TONIO (acute kidney injury): Status: Acute Plan 56 y/o F history of GERD, hyperlipidemia, gout, arthritis, nephrolithiasis, sleep apnea does not use CPAP at home, hypertension: Patient came to the hospital and getting admitted for renal colic and TONIO. 1. Renal colic: History of nephrolithiasis Continue IV morphine, Flomax, IV fluids. Urology evaluation because patient has 8 mm stone in the left ureter area-might require urological intervention. 2. TONIO secondary to obstructive uropathy secondary to stone in the ureter. Continue IV hydration Monitor renal function closely 3. Hypertension: Blood pressure seems stable but fluctuating Will hold hydrochlorothiazide if needed we will add small dose of amlodipine for blood pressure. 4. Hlp: Continue statin. 5. Gout/arthritis: Continue allopurinol and morphine. 6. Anxiety: Continue home psych medications. 7. Morbid obesity: Encouraged to lose weight. 8. Sleep apnea not on CPAP at home. DVT prophylaxis: Ambulatory. Above management discussed with the patient in detail length she understand and in agreement with the above plan, assessment and plan coordination time spent is 70 minute, patient is full code. Patient has renal colic and TONIO with obstructive uropathy patient may benefit from hydration and pain management may need 2 midnight stay. Quality Stroke Does the patient have a stroke diagnosis?: No VTE Prior VTE?: No VTE Risk Level:: Medical - moderate - high VTE Device Contraindication: N/A - Device Ordered VTE Drug Contraindication: N/A - Med Ordered
[2021-10-24] MEDS: Lactated Ringers 1,000 ML 100 ML IVCONT (18:42)
[2021-10-24] MEDS: Tamsulosin HCL 0.4 MG CAPSULE PO (18:44)
[2021-10-24] MEDS: Sennosides 8.6 MG TABLET 17.2 MG PO (22:14)
[2021-10-24] MEDS: Magnesium Oxide 400 MG TABLET PO (22:14)
[2021-10-24 23:46] VITALS: BP 115/58; PULSE 87; RESP 18; O2SAT 96
[2021-10-25] MEDS: Lactated Ringers 1,000 ML 100 ML IVCONT ×2 (05:19→11:53)
[2021-10-25 05:25] VITALS: BP 116/56; PULSE 82; RESP 16; O2SAT 97
--- NOTE | 2021-10-25 05:45 | PC.NURSE ---
I assumed nursing care of Milady at 1900. Milady has been NPO and is scheduled for lithotripsy this AM. She verbalizes an understanding of this. Milady has mostly been sleeping for the duration of my shift. While not asleep she is alert, oriented x 3, calm and cooperative, makes ey contact with RN and is able to adequately communcate her needs with staff. She has ambulated to and from the bathroom independently and with steady gait. She denies chest pain. Skin is pink/warm./dry. Afebrile. Since I assumed care she has been pain free. No nausea. no vomiting. She has taken ice chips and PO fluids (with PO meds only) without difficulty. She has been voiding in the bathroom without difficulty . We will continue to monitor Milady. IVF's (LR) infusing at 100ml's/hr.
[2021-10-25 09:06] LABS: Anion Gap 10 (12-20); Blood Urea Nitrogen 15 mg/dL (9-16); Calcium 8.5 mg/dL (8.4-10.2); Carbon Dioxide 25 mmol/L (22-29); Chloride 107 mmol/L (96-108); Creatinine Clr Calc Pharmacy 75.1; Estimated Glomerular Filt Rate 58; Glucose Random 137 mg/dL (60-115); Potassium 3.9 mmol/L (3.3-5.1); Sodium 138 mmol/L (135-145)
[2021-10-25 09:55] VITALS: BP 110/51; PULSE 80; RESP 16; TEMP 37.1; O2SAT 97
--- NOTE | 2021-10-25 09:57 | PC.NURSE ---
Pt declined all of her morning pills. She wishes to go home at this time. Awaiting uro consult. She is unsure if she will wait and stay.
--- NOTE | 2021-10-25 12:02 | PC.NURSE ---
patient a&ox3, ivf running per order, pt family at bedside, pt refused reglan- eating food family brought in. pt wanting to know when urology will see her- this nurse informed patient that it will take some time for the urologist to consult. pt denies discomfort at this time, will continue to monitor.
--- NOTE | 2021-10-25 12:59 | P.CNUR_ITS ---
History of Present Illness Consult details Consult date: 10/25/21 Narrative: Consult - distal left ureteric stone 56-year-old female known to Urology Recurrent stone former Presented with left-sided flank pain persistent for 2 days and nausea She tells me this has improved in her pain is minimized last 12 hours Creatinine 0.99 WBC 10.7 Imaging with 6 mm distal left ureteric stone and mild hydroureteronephrosis She would like to go home and says she is stable Can contact my office next week Will need Litholink completed before follow-up appointment Review of Systems Constitutional: Constitutional: Reports as per HPI and Reports no additional constitutional complaints Cardiovascular: Cardiovascular: Reports as per HPI and Reports no additional cardiovascular complaints Respiratory: Respiratory: Reports as per HPI and Reports no additional respiratory complaints Gastrointestinal: Gastrointestinal: Reports as per HPI and Reports no additional gastrointestinal complaints Genitourinary: Genitourinary: Reports as per HPI Musculoskeletal: Musculoskeletal: Reports no additional musculoskeletal complaints and Reports as per HPI Neurologic: Reports system reviewed and no additional complaints, except as documented and Reports as per HPI PMFSH Past Medical History Medical History Arthritis of left acromioclavicular joint Bursitis of left shoulder Class 2 obesity Fibromyalgia GERD (gastroesophageal reflux disease) Gout, arthritis History of depression HTN (hypertension) Osteoarthritis Renal calculi Renal colic Rotator cuff tendonitis Family History Family History Father Diabetes mellitus Hypercholesteremia Heart attack HTN (hypertension) Mother Diabetes mellitus HTN (hypertension) Heart attack Hypercholesteremia Cardiovascular disease Brother Liver cancer Brother Pancreatic cancer Brother Lymphoma Sister Cervical cancer Sister Cirrhosis of liver Family/Other Cancer Family/Other Ovarian cancer Surgical History Surgical History H/O lithotripsy History of endometrial ablation History of esophagogastroduodenoscopy (EGD) Hx of colonoscopy Hx of cystoscopy Social History Social History Household Members: Family Alcohol intake: never Patient Tobacco Use Status: Former Tobacco user Quit Date: 1990 Tobacco use type: Cigarette Years Smoked: 25 +/- Second Hand Smoke Exposure: No Current occupational status: disabled Current occupation: rt handed Meds Allergies Allergy/AdvReac Type Severity Reaction Status Date / Time cephalexin [From KEFLEX] Allergy Intermediate RASH Verified 07/17/21 06:41 diazepam [From VALIUM] Allergy Intermediate Anxiety Verified 07/17/21 06:41 Penicillins Allergy Intermediate RASH Verified 07/17/21 06:41 Jakob Rosenthal Allergy Intermediate rash Uncoded 07/15/21 14:03 Active Medications: Current Medications Allopurinol (Allopurinol 100 Mg Tablet) 100 mg PO DAILY COUNTS INCLUDE 234 BEDS AT THE [facility] Last Admin: 10/25/21 10:16 Dose: Not Given Buspirone HCl (Buspirone Hcl 5 Mg Tablet) 5 mg PO DAILY COUNTS INCLUDE 234 BEDS AT THE [facility] Last Admin: 10/25/21 10:16 Dose: Not Given Clonazepam (Clonazepam 0.5 Mg Tablet) 0.5 mg PO DAILY PRN PRN Reason: Anxiety Duloxetine HCl (Duloxetine Hcl 60 Mg Capsule.Dr) 60 mg PO BID COUNTS INCLUDE 234 BEDS AT THE [facility] Last Admin: 10/25/21 10:15 Dose: Not Given Fluticasone Propionate (Fluticasone Propionate Nasal 16 Gm [place]) 2 spray NOSTRIL-B DAILY COUNTS INCLUDE 234 BEDS AT THE [facility] Last Admin: 10/25/21 10:17 Dose: Not Given Folic Acid (Folic Acid 1 Mg Tablet) 1 mg PO DAILY COUNTS INCLUDE 234 BEDS AT THE [facility] Last Admin: 10/25/21 10:17 Dose: Not Given Lactated Ringer's (Lr) 1,000 mls @ 100 mls/hr IVCONT .Q10H COUNTS INCLUDE 234 BEDS AT THE [facility] Last Admin: 10/25/21 11:53 Dose: 100 mls/hr Loratadine (Loratadine 10 Mg Tablet) 10 mg PO DAILY COUNTS INCLUDE 234 BEDS AT THE [facility] Last Admin: 10/25/21 10:18 Dose: Not Given Magnesium Oxide (Magnesium Oxide 400 Mg Tablet) 400 mg PO BID COUNTS INCLUDE 234 BEDS AT THE [facility] Last Admin: 10/25/21 10:15 Dose: Not Given Meclizine HCl (Meclizine Hcl 12.5 Mg Tablet) 12.5 mg PO TID PRN PRN Reason: Dizziness Metoclopramide HCl (Metoclopramide Hcl 5 Mg Tablet) 5 mg PO TIDAC COUNTS INCLUDE 234 BEDS AT THE [facility] Last Admin: 10/25/21 11:51 Dose: Not Given Morphine Sulfate (Morphine Sulfate 4 Mg/Ml Cartridge) 3 mg IVPUSH Q4H PRN; Protocol PRN Reason: Pain, Mild (Pain Scale 1-3) Non-Formulary Medication (Linaclotide [Linzess]) 290 mcg PO DAILY COUNTS INCLUDE 234 BEDS AT THE [facility] Omeprazole (Omeprazole 20 Mg Capsule.Dr) 30 mg PO DAILY@0630 COUNTS INCLUDE 234 BEDS AT THE [facility] Last Admin: 10/25/21 06:31 Dose: Not Given Ondansetron HCl (Ondansetron Hcl 4 Mg/2 Ml Vial) 4 mg IVPUSH Q8H PRN PRN Reason: nausea Pharmacy Consult (Consult Rx Perform Med Rec) 1 each MISCELLANE ONCE PRN PRN Reason: Consult order Pyridoxine HCl (Pyridoxine Hcl (Vitamin B6) 50 Mg Tablet) 100 mg PO DAILY COUNTS INCLUDE 234 BEDS AT THE [facility] Last Admin: 10/25/21 10:18 Dose: Not Given Quetiapine Fumarate (Quetiapine Fumarate 50 Mg Tablet) 50 mg PO BEDTIME PRN PRN Reason: Insomnia Senna (Sennosides 8.6 Mg Tablet) 17.2 mg PO BID COUNTS INCLUDE 234 BEDS AT THE [facility] Last Admin: 10/25/21 10:16 Dose: Not Given Sodium Chloride (0.9 % Sodium Chloride Flush 3 Ml Syringe) 3 ml IVFLUSH QSHIFT COUNTS INCLUDE 234 BEDS AT THE [facility] Last Admin: 10/25/21 10:16 Dose: Not Given Sumatriptan Succinate (Sumatriptan Succinate 25 Mg Tablet) 25 mg PO ONCE PRN PRN Reason: Migraine Headache Tamsulosin HCl (Tamsulosin Hcl 0.4 Mg Capsule) 0.4 mg PO DAILY COUNTS INCLUDE 234 BEDS AT THE [facility] Last Admin: 10/25/21 10:15 Dose: Not Given Tizanidine HCl (Tizanidine Hcl 4 Mg Tablet) 4 mg PO BID PRN PRN Reason: muscle spasticity Topiramate (Topiramate 25 Mg Tablet) 50 mg PO BID COUNTS INCLUDE 234 BEDS AT THE [facility] Last Admin: 10/25/21 10:16 Dose: Not Given Vitamin D (Cholecalciferol (Vitamin D3) 25 Mcg Tablet) 25 mcg PO DAILY COUNTS INCLUDE 234 BEDS AT THE [facility] Last Admin: 10/25/21 10:16 Dose: Not Given Home Medications Medication Instructions Recorded Confirmed Last Taken Type duloxetine 60 mg capsule,delayed 60 mg PO BID 02/19/20 10/24/21 10/23/21 History release (Cymbalta) fluticasone propionate 50 2 spray intranasal DAILY 02/19/20 10/24/21 10/23/21 History mcg/actuation nasal spray,suspension folic acid 1 mg tablet 1 mg PO DAILY 02/19/20 10/24/21 10/23/21 History loratadine 10 mg tablet 10 mg PO DAILY 02/19/20 10/24/21 10/23/21 History meclizine 12.5 mg tablet 12.5 mg PO TID PRN Dizziness 02/19/20 10/24/21 10/23/21 History cholecalciferol (vitamin D3) 25 25 mcg PO DAILY 01/09/21 10/24/21 10/23/21 Hist ory mcg (1,000 unit) capsule topiramate 50 mg tablet 50 mg PO BID 01/09/21 10/24/21 10/23/21 History quetiapine 100 mg tablet (Seroquel) 50 mg PO BEDTIME PRN Insomnia 06/23/21 10/24/21 10/23/21 History hydrochlorothiazide 12.5 mg tablet 12.5 mg PO DAILY 07/15/21 10/24/21 10/23/21 History sumatriptan succinate 25 mg tablet 5 mg PO ONCE PRN Migraine Headache 07/15/21 10/24/21 Unknown History buspirone 5 mg tablet 1 tab PO DAILY 10/24/21 10/24/21 10/23/21 History clonazepam 0.5 mg tablet 1 tab PO DAILY PRN Anxiety 10/24/21 10/24/21 Unknown History Physical Exam Vital Signs: Vital Signs: Last Vital Signs Temp 98.7 F 10/25/21 09:55 Pulse 80 10/25/21 09:55 Resp 16 10/25/21 09:55 BP 110/51 L 10/25/21 09:55 Pulse Ox 97 10/25/21 09:55 O2 Del Method 10/25/21 09:55 BMI result Body Mass Index 39.1 Const: General: cooperative, healthy appearing, comfortable and no acute distress Orientation/consciousness: patient oriented x3 HEENT: Face and sinus: Yes normal facial exam Mouth: moist mucous membranes Neck: Neck: Yes normal visual inspection, Yes full ROM and Yes trachea midline Chest: Chest palpation & inspection: normal inspection of the chest Resp: Effort & Inspection: normal respiratory effort, able to speak in complete sentences and no respiratory distress GI: Inspection: Yes normal to inspection Back/Spine/Pelvis: Cervical Spine: normal cervical lordosis Thoracic/Lumbar Spine: thoracic and lumbar spine normal to inspection Skin: General skin exam: no rashes or lesions noted Neuro: General: patient oriented x3, tone normal and moves all extremities Extrem: General: Yes normal to inspection and Yes capillary refill normal Results Labs Result diagrams: 10/24/21 12:36 10/25/21 08:23 Labs: Abnormal lab results 10/24/21 10/25/21 Range/Units 12:36 08:23 Anion Gap 10 L (12-20) BUN 18 H (9-16) mg/dL Random Glucose 127 H 137 H (60-115) mg/dL ALT 35 H (0-31) U/L Total Protein 6.4 L (6.5-8.0) g/dL BMP 10/24/21 10/25/21 12:36 08:23 Sodium 138 138 Potassium 4.0 3.9 Chloride 107 107 Carbon Dioxide 23 25 BUN 18 H 15 Creatinine 1.17 0.99 Calcium 8.9 8.5 Liver Function 10/24/21 Range/Units 12:36 Total Bilirubin 0.8 (0.0-1.0) mg/dL AST 27 D (5-31) U/L ALT 35 H (0-31) U/L Alkaline Phosphatase 92 (39-117) U/L Albumin 4.0 (3.5-5.0) g/dL Urine 10/24/21 Range/Units 14:25 Urine Color YELLOW Urine Appearance CLEAR Urine pH 6.0 (5.0-8.0) Ur Specific [place] 1.010 (1.005-1.025) Urine Protein NEG (NEG-TRACE) MG/DL Urine Glucose (UA) NEG (NEG) MG/DL All other labs normal. Assessment and Plan (1) Colic, ureteral: Status: Acute Plan outpatient follow-up Procedures Date of Service Date of Service: 10/25/21 Abscess I/D Technique: needle aspiration
--- NOTE | 2021-10-25 13:23 | P.DS_ITS ---
DS: Providers Provider Date of Service: 10/25/21 Date of admission: 10/24/21 17:59 Primary care physician: Jayda Mcelroy MD Consults: 10/24/21 18:26 Consult to Urology Routine Consulting Provider: Alan Medrano Reason for consultation: renal colic/left ureter stone /tonio Has provider been notified: No DS: Diagnosis Discharge Diagnosis (1) Colic, ureteral: Status: Acute (2) TONIO (acute kidney injury): Status: Acute DS: Summary Hospital Course Hospital Course: 56 y/o F history of GERD, hyperlipidemia, gout, arthritis, nephrolithiasis, slee p apnea does not use CPAP at home, hypertension:? Patient came to the hospital and getting admitted for renal colic and TONIO. hospital course:Patient came with renal colic episode, had left-sided ureteral stone and TONIO: Patient seems to be improved with conservative management IV hydration and pain management as well as Flomax-TONIO and pain improved(possible she passed stone). Discussed with Urology patient is to follow-up out patiently with Urology in a week. Given Flomax for 1 week. Further management outpatient. plan: Hydrate Continue Flomax Follow-up with Urology outpatient Patient advised to come back if flank pain again or fever or chills or any new complaints done come to nearest emergency room. Above management discussed with the patient in detail length she understand and in agreement with the above plan, time spent 50 minutes and 50% time spent on counseling. Significant findings: As above. Procedures performed: None. Treatment and response: As above. Complications: None. Time Spent with Patient Time attestation: Total time spent providing and/or coordinating discharge services: Discharge coordination time: Greater than 30 minutes Quality: Safe Use of Opioids Does Pt have an Active Cancer Diagnosis on the Problem List?: No Quality: Stroke Does the patient have a stroke diagnosis?: No Physical Exam Vital Signs: Vital Signs: Last Vital Signs Temp 98.7 F 10/25/21 09:55 Pulse 80 10/25/21 09:55 Resp 16 10/25/21 09:55 BP 110/51 L 10/25/21 09:55 Pulse Ox 97 10/25/21 09:55 O2 Del Method 10/25/21 09:55 BMI result Body Mass Index 39.1 Appearance: Alert.? Oriented X3.?in pain. Eyes: Pupils equal, round and reactive to light.? Sclera nonicteric.? ENT: Pharynx normal.? Moist mucous membranes. cvs: rrr, [id number] , no murmur res: clear to auscultation ,no rhonchii or wheezing abd: no rebound or guarding ,left flank pain resolved, bs present. ext pulses present , no cyanosis . neuro: axo3 , nonfocal. DS: Data Data Completed and Pending Labs on day of discharge: Laboratory Results - last 24 hr 10/24/21 10/25/21 14:25 08:23 Sodium 138 Potassium 3.9 Chloride 107 Carbon Dioxide 25 Anion Gap 10 L BUN 15 Creatinine 0.99 Estim Creat Clear Calc 75.1 Estimated GFR 58 Random Glucose 137 H Calcium 8.5 Urine Color YELLOW Urine Appearance CLEAR Urine pH 6.0 Ur Specific [place] 1.010 Urine Protein NEG Urine Glucose (UA) NEG Urine Ketones NEG Urine Blood TRACE Urine Nitrite NEG Ur Leukocyte Esterase NEG Urine RBC 1-4 Urine WBC 1-4 Ur Squamous Epith Cells 2+ Urine Bacteria 2+ Additional Comments Additional comments: CT/CT abdomen pelvis wo con IMPRESSION: In addition to nonobstructing bilateral renal calculi, there is an 8 mm left distal ureteral calculus that results in moderate left hydroureteronephrosis. ? Discharge Plan Discharge Patient Disposition: Home, Self-Care Discharge Diagnosis: Renal colic,tonio Referrals: Jayda Patiño MD [Primary Care Provider] - 1 Week Alan Medrano MD [Physician] - 1 Week (follow up outpatiently) Discharge Medications: New tamsulosin [Flomax] 0.4 mg capsule 0.4 mg PO DAILY Qty: 7 0RF Continued allopurinol 100 mg tablet 100 mg PO DAILY Qty: 90 3RF meloxicam 15 mg tablet 15 mg PO DAILY Qty: 30 3RF lansoprazole 30 mg capsule,delayed release(DR/EC) 30 mg PO DAILY Qty: 30 2RF tizanidine 4 mg tablet 4 mg PO BID PRN (Reason: muscle spasticity) 30 Days Qty: 60 6RF pyridoxine (vitamin B6) 100 mg tablet 100 mg PO DAILY 90 Days Qty: 90 1RF tramadol 50 mg tablet 50 mg PO Q6H PRN (Reason: pain) Qty: 120 2RF meclizine 12.5 mg Tablet 12.5 mg PO TID PRN (Reason: Dizziness) folic acid 1 mg Tablet 1 mg PO DAILY fluticasone propionate 50 mcg/actuation [place],Suspension 2 spray INTRANASAL DAILY loratadine 10 mg Tablet 10 mg PO DAILY duloxetine [Cymbalta] 60 mg Capsule,Delayed Release(Dr/Ec) 60 mg PO BID quetiapine [Seroquel] 100 mg tablet 50 mg PO BEDTIME PRN (Reason: Insomnia) ondansetron 4 mg tablet,disintegrating 4 mg PO Q8H PRN (Reason: nausea and vomiting) Qty: 20 0RF buspirone 5 mg tablet 1 tab PO DAILY clonazepam 0.5 mg tablet 1 tab PO DAILY PRN (Reason: Anxiety) topiramate 50 mg tablet 50 mg PO BID cholecalciferol (vitamin D3) 25 mcg (1,000 unit) capsule 25 mcg PO DAILY Linzess 290 mcg capsule 290 mcg PO DAILY Qty: 30 6RF metoclopramide HCl 5 mg tablet 5 mg PO .TIDAC Qty: 90 6RF senna 8.6 mg capsule 17.2 mg PO BID 30 Days Qty: 120 6RF magnesium oxide 400 mg (241.3 mg magnesium) tablet 400 mg PO BID Qty: 60 6RF sumatriptan succinate 25 mg tablet 5 mg PO ONCE PRN (Reason: Migraine Headache) hydrochlorothiazide 12.5 mg tablet 12.5 mg PO DAILY Discharge Orders: Discharge Order (Routine); Ordered 10/25/21 Ordered By: Carin [place] Diet: Advance to usual diet Activity on Discharge: As tolerated Stand Alone Forms: Patient Portal Discharge page Care Plan Goals: Patient came with renal colic episode, had left-sided ureteral stone and TONIO: Patient seems to be improved with conservative management IV hydration and pain management as well as Flomax-TONIO and pain improved. Discussed with Urology patient is to follow-up out patiently with Urology in a week. Given Flomax for 1 week. Encouraged for hydration. Further management outpatient. Patient advised to come back if flank pain again or fever or chills or any new complaints done come to nearest emergency room. Health Concerns: As above. Plan of Treatment: As above. Assessment: As above.
== END 2021-10-25 14:00 | disposition home or self-care (01) ==
LOC: HO.ED 14:34 → HO.EDOVER 18:16
PROVIDERS: Physician Assistant; Admitting Provider Internal Medicine; Emergency Provider Emergency Medicine Emergency Medical Services; PCP Internal Medicine; Visit Provider Internal Medicine
DX: N13.2 Hydronephrosis with renal and ureteral calculous obstruction (principal); N17.9 Acute kidney failure, unspecified; M54.50 Low back pain, unspecified; I10 Essential (primary) hypertension; E78.5 Hyperlipidemia, unspecified; M10.9 Gout, unspecified; K21.9 Gastro-esophageal reflux disease without esophagitis; G47.30 Sleep apnea, unspecified; F41.9 Anxiety disorder, unspecified; E66.01 Morbid (severe) obesity due to excess calories; Z68.39 Body mass index [BMI] 39.0-39.9, adult; Z20.822 Contact with and (suspected) exposure to COVID-19; Z87.442 Personal history of urinary calculi; Z87.891 Personal history of nicotine dependence; Z79.899 Other long term (current) drug therapy; Z71.3 Dietary counseling and surveillance
CPT/HCPCS: 36415; 74176; 80048; 80053; 81001; 85025; 87635; 96361; 96374; 96375; 96376; 99218; 99285; J1885; J2270; J2405

== ENCOUNTER 2021-10-26 17:56 | Inpatient (IN) | payer MEDICAID, SELFPAY ==
--- NOTE | ~2021-10-26 | FL_ITS ---
EXAMINATION: XR FLUOROSCOPY WITH IMAGES CLINICAL INFORMATION: Left ureteral stone COMPARISON: None. TECHNIQUE: Fluoroscopy performed by Dr. Mitchell Phillips. Fluoroscopy time: 46 seconds Dose: 16.33 mGycm2 Images: 1 FL/FL guidance in OR FINDINGS/IMPRESSION: There is a single image obtained of the pelvis revealing a left distal ureteral internal stent in the bladder. There is some contrast opacifying part of the bladder. No bony erosion on visualized images.
--- NOTE | ~2021-10-26 | US_ITS ---
EXAMINATION: US RETROPERITONEAL LIMITED (RENAL ONLY) CLINICAL INFORMATION: Left flank pain. Ureterovesical junction stone. COMPARISON: CT abdomen and pelvis without contrast dated 10/24/2021. Bilateral renal ultrasound dated 01/26/2021 and 12/11/2020. KUB dated 02/27/2020 and 05/09/2019. TECHNIQUE: Real-time imaging of the kidneys. FINDINGS: RIGHT KIDNEY: 11.6 x 5.6 x 5.1 cm (SAG x AP x TRV). The kidney is normal in size, contour, and echogenicity. Renal cortical thickness is normal. There are multiple small stones, largest measuring 3 mm. There is mild hydronephrosis. No focal parenchymal lesions. LEFT KIDNEY: 12.5 x 7.0 x 4.7 cm (SAG x AP x TRV). The kidney is normal in size, contour, and echogenicity. Renal cortical thickness is normal. There is a 1 to 2 mm stone in the lower pole. There is severe left hydronephrosis and dilatation of the visualized left proximal ureter. This is similar to CT 10/24/2021 No focal parenchymal lesions. US/US renal BI IMPRESSION: Bilateral renal stones. Severe left hydronephrosis and dilatation of the visualized left proximal ureter similar to recent CT scan. Mild right hydronephrosis..
[2021-10-26 18:14] VITALS: BP 148/76; PULSE 118; RESP 17; TEMP 36.9; O2SAT 98; BMI 39.1
[2021-10-26 20:59] LABS: Appearance Urine CLEAR; Color Urine YELLOW; Glucose Urine UA NEG (NEG); Leukocyte Esterase Urine NEG (NEG); Nitrite Urine NEG (NEG); Urine Blood NEG (NEG); Urine Ketones NEG (NEG); Urine Protein NEG (NEG-TRACE)
[2021-10-26 21:35] VITALS: BP 145/82; PULSE 110; RESP 20; O2SAT 99
--- NOTE | 2021-10-26 21:37 | ED.FEMALEGU ---
HPI - Female Genitourinary General Chief complaint: Urogenital-Female Stated complaint: kidney stones Time Seen by Provider: 10/26/21 21:37 History of Present Illness HPI Narrative: Patient with history of kidney stone was seen here on 10/24 for left UVJ stone 8 mm admitted discharged next day as she got better without any procedure now comes back for increased left for flank pain similar to that when she came 2 days ago. complaining of nausea no vomiting no diarrhea no hematuria Related Data Home Medications Medication Instructions Recorded Confirmed duloxetine 60 mg capsule,delayed 60 mg PO BID 02/19/20 10/24/21 release (Cymbalta) fluticasone propionate 50 2 spray intranasal DAILY 02/19/20 10/24/21 mcg/actuation nasal spray,suspension folic acid 1 mg tablet 1 mg PO DAILY 02/19/20 10/24/21 loratadine 10 mg tablet 10 mg PO DAILY 02/19/20 10/24/21 meclizine 12.5 mg tablet 12.5 mg PO TID PRN Dizziness 02/19/20 10/24/21 cholecalciferol (vitamin D3) 25 25 mcg PO DAILY 01/09/21 10/24/21 mcg (1,000 unit) capsule topiramate 50 mg tablet 50 mg PO BID 01/09/21 10/24/21 quetiapine 100 mg tablet (Seroquel) 50 mg PO BEDTIME PRN Insomnia 06/23/21 10/24/21 hydrochlorothiazide 12.5 mg tablet 12.5 mg PO DAILY 07/15/21 10/24/21 sumatriptan succinate 25 mg tablet 5 mg PO ONCE PRN Migraine Headache 07/15/21 10/24/21 buspirone 5 mg tablet 1 tab PO DAILY 10/24/21 10/24/21 clonazepam 0.5 mg tablet 1 tab PO DAILY PRN Anxiety 10/24/21 10/24/21 Previous Rx's Medication Instructions Recorded ondansetron 4 mg disintegrating 4 mg PO Q8H PRN nausea and 10/12/20 tablet vomiting #20 tabs allopurinol 100 mg tablet 100 mg PO DAILY #90 tabs 02/03/21 meloxicam 15 mg tablet 15 mg PO DAILY #30 tabs 02/13/21 linaclotide 290 mcg capsule 290 mcg PO DAILY #30 caps 12/17/21 (Linzess) magnesium oxide 400 mg (241.3 mg 400 mg PO BID #60 tabs 04/10/21 magnesium) tablet metoclopramide HCl 5 mg tablet 5 mg PO .TIDAC #90 tabs 04/10/21 sennosides 8.6 mg capsule (senna) 17.2 mg PO BID constipation 30 04/10/21 days #120 caps lansoprazole 30 mg capsule,delayed 30 mg PO DAILY #30 caps 07/31/21 release tizanidine 4 mg tablet 4 mg PO BID PRN muscle spasticity 08/26/21 30 days #60 tabs pyridoxine (vitamin B6) 100 mg 100 mg PO DAILY 90 days #90 tabs 08/27/21 tablet tramadol 50 mg tablet 50 mg PO Q6H PRN pain #120 tabs 09/28/21 tamsulosin 0.4 mg capsule (Flomax) 0.4 mg PO DAILY #7 caps 10/25/21 Allergies Allergy/AdvReac Type Severity Reaction Status Date / Time cephalexin [From KEFLEX] Allergy Intermediate RASH Verified 07/17/21 06:41 diazepam [From VALIUM] Allergy Intermediate Anxiety Verified 07/17/21 06:41 Penicillins Allergy Intermediate RASH Verified 07/17/21 06:41 Jakob Rosenthal Allergy Intermediate rash Uncoded 07/15/21 14:03 Review of Systems Review of Systems: Yes all other systems are reviewed and are negative [facility] Past Medical History Medical History Arthritis of left acromioclavicular joint Bursitis of left shoulder Class 2 obesity Fibromyalgia GERD (gastroesophageal reflux disease) Gout, arthritis History of depression HTN (hypertension) Osteoarthritis Renal calculi Renal colic Rotator cuff tendonitis Surgical History H/O lithotripsy History of endometrial ablation History of esophagogastroduodenoscopy (EGD) Hx of colonoscopy Hx of cystoscopy Family History Family History Father Diabetes mellitus Hypercholesteremia Heart attack HTN (hypertension) Mother Diabetes mellitus HTN (hypertension) Heart attack Hypercholesteremia Cardiovascular disease Brother Liver cancer Brother Pancreatic cancer Brother Lymphoma Sister Cervical cancer Sister Cirrhosis of liver Family/Other Cancer Family/Other Ovarian cancer Social History Social History Household Members: Family Alcohol intake: never Patient Tobacco Use Status: Former Tobacco user Quit Date: 1990 Tobacco use type: Cigarette Years Smoked: 25 +/- Second Hand Smoke Exposure: No Advance Directives: No Advance Directives Information Provided: No Current occupational status: disabled Current occupation: rt handed Physical Exam Vital Signs: Vital Signs: Last Vital Signs Temp 98.6 F 10/26/21 22:01 Pulse 101 H 10/26/21 22:01 Resp 15 10/26/21 22:32 BP 136/84 10/26/21 22:01 Pulse Ox 98 10/26/21 22:01 O2 Del Method 10/26/21 22:01 BMI result Body Mass Index 39.1 Appearance: Alert. Oriented X3. In moderate distress. ENT: Pharynx normal. Oral Mucosa moist Neck: Normal inspection. Neck supple. CVS: Normal heart rate and rhythm. Pulses normal. Respiratory: No respiratory distress. Equal air entry bilateral, no wheezing/rales/rhonchi Abdomen: Soft and nontender. Bowel sounds are present, no mass palpable, L CVA tenderness Skin: Skin warm and dry. Normal skin color. Normal skin turgor. Extremities: No lower extremity edema. No calf tenderness Neuro: Oriented X 3. No motor deficit. No sensory deficit.No cerebellar signs , cranial nerves II-XII intact MDM - Female Genitourinary MDM Narrative Medical decision making narrative: [id number] Patient with left distal ureteric 8 mm stone with hydronephrosis case discussed with Dr. Medrano would like to keep the patient NPO will do lithotripsy in the morning patient pain is controlled at this time but will admit the patient for lithotripsy in the morning Lab Data Attestation: I reviewed the patient's lab results. Result diagrams: 10/26/21 21:53 10/26/21 21:53 Labs: Lab Results 10/26/21 10/26/21 10/26/21 Range/Units 20:49 21:53 21:53 WBC 11.2 H (4.8-10.8) X10*3/uL RBC 4.55 (4.20-5.50) X10*6/uL Hgb 14.0 (12.0-16.0) g/dl Hct 41.8 (37.0-47.0) % MCV 91.9 (80.0-98.0) fL MCH 30.8 (27.0-33.0) pg MCHC 33.5 (31.0-35.0) g/dl RDW 13.4 (11.0-16.0) % Plt Count 216 (160-400) X10*3/uL MPV 11.1 (9.4-12.3) fL Immature Gran % (Auto) 0.2 (0.0-0.4) % Neut % (Auto) 70.6 (45-73) % Lymph % (Auto) 19.5 L (20-40) % [place] % (Auto) 8.6 (2-11) % Eos % (Auto) 0.8 (0-4) % Baso % (Auto) 0.3 (0-2) % Lymph # (Auto) 2.2 (1.2-4.9) X10*3/uL [place] # (Auto) 1.0 (0.1-1.2) X10*3/uL Eos # (Auto) 0.1 (0.0-0.4) X10*3/uL Baso # (Auto) 0.0 (0.0-0.2) X10*3/uL Abs Immat Gran (auto) 0.02 (0.00-0.03) X10*3/uL Absolute Neuts (auto) 7.9 (2.0-8.3) x10*3/uL Absolute Nucleated RBC 0.000 (0.0-0.012) X10*3/uL Nucleated RBC % (auto) 0.0 (0.0-0.2) /100WBC Sodium 139 (135-145) mmol/L Potassium 3.7 (3.3-5.1) mmol/L Chloride 104 (96-108) mmol/L Carbon Dioxide 25 (22-29) mmol/L Anion Gap 14 (12-20) BUN 15 (9-16) mg/dL Creatinine 1.21 (0.5-1.4) mg/dL Estim Creat Clear Calc 61.5 Estimated GFR 46 Random Glucose 122 H (60-115) mg/dL Calcium 8.5 (8.4-10.2) mg/dL Urine Color YELLOW Urine Appearance CLEAR Urine pH 6.0 (5.0-8.0) Ur Specific [place] 1.010 (1.005-1.025) Urine Protein NEG (NEG-TRACE) MG/DL Urine Glucose (UA) NEG (NEG) MG/DL Urine Ketones NEG (NEG) MG/DL Urine Blood NEG (NEG) Urine Nitrite NEG (NEG) Ur Leukocyte Esterase NEG (NEG) Discharge Plan Discharge Clinical Impression: Kidney stone on left side Patient Disposition: Admitted As Inpatient
[2021-10-26 21:57] LABS: MANUAL DIFF FLAG NO
[2021-10-26 21:58] LABS: Basophils Percent Auto 0.3 % (0-2); Eosinophils Absolute Auto 0.1 X10*3/uL (0.0-0.4); Eosinophils Percent Auto 0.8 % (0-4); Hematocrit 41.8 % (37.0-47.0); Imm Gran Abs Auto 0.02 X10*3/uL (0.00-0.03); Imm Gran Pct Auto 0.2 % (0.0-0.4); Lymphocytes Absolute Auto 2.2 X10*3/uL (1.2-4.9); Lymphocytes Percent Auto 19.5 % (20-40); Mean Corpuscular HGB Conc 33.5 g/dl (31.0-35.0); Mean Corpuscular Hemoglobin 30.8 pg (27.0-33.0); Mean Corpuscular Volume 91.9 fL (80.0-98.0); Mean Platelet Volume 11.1 fL (9.4-12.3); Monocytes Percent Auto 8.6 % (2-11); Neutrophils Absolute Auto 7.9 x10*3/uL (2.0-8.3); Neutrophils Percent Auto 70.6 % (45-73); Platelet Count 216 X10*3/uL (160-400); Red Blood Count 4.55 X10*6/uL (4.20-5.50); Red Cell Distribution Width 13.4 % (11.0-16.0); White Blood Count 11.2 X10*3/uL (4.8-10.8)
[2021-10-26 22:01] VITALS: BP 136/84; PULSE 101; RESP 16; TEMP 37; O2SAT 98
[2021-10-26 22:27] LABS: Anion Gap 14 (12-20); Blood Urea Nitrogen 15 mg/dL (9-16); Calcium 8.5 mg/dL (8.4-10.2); Carbon Dioxide 25 mmol/L (22-29); Chloride 104 mmol/L (96-108); Creatinine Clr Calc Pharmacy 61.5; Estimated Glomerular Filt Rate 46; Glucose Random 122 mg/dL (60-115); Potassium 3.7 mmol/L (3.3-5.1); Sodium 139 mmol/L (135-145)
[2021-10-26 22:32] VITALS: RESP 15
[2021-10-26] MEDS: Morphine Sulfate 4 MG/ML CARTRIDGE IVPUSH (22:32)
[2021-10-26] MEDS: Ketorolac Tromethamine 30 MG/ML VIAL IVPUSH (22:32)
[2021-10-26] MEDS: ondansetron HCL 4 MG/2 ML VIAL IVPUSH (22:32)
[2021-10-26] MEDS: 0.9 % Sodium Chloride 1,000 ML 999 ML IV (22:35)
[2021-10-26] MEDS: Famotidine/PF 20 MG/2 ML VIAL IVPUSH (22:52)
--- NOTE | 2021-10-26 22:59 | PM.IMHP ---
History of Present Illness Date of Service: 10/26/21 Chief Complaint: Left flank pain 56-year-old female with a past medical history of hypertension, hyperlipidemia, fibromyalgia, arthritis, GERD, history of renal calculi; presented to the hospital today with a chief complaint of left flank pain. Patient reports that she was recently presented to the hospital for left flank pain noted to have 8 mm ureteral calculus at the UVJ junction on the left side; as the patient symptomatically improved, patient was discharged on 10/25/2021 with outpatient follow-up in urology clinic; patient presented back today with a chief complaint of increasing pain associated nausea vomiting. Denies any fevers and chills. Denies any burning micturition. Denies any hematuria. Denies any chest pain or palpitations. Review of all other systems is negative except mentioned above ER course: Per ER team patient noted to have left flank tenderness; urinalysis was negative for any infection; urology Dr. Medrano was notified-suggested admission to the medicine service and to keep the patient NPO after midnight. [facility] Medical History Arthritis of left acromioclavicular joint Bursitis of left shoulder Class 2 obesity Fibromyalgia GERD (gastroesophageal reflux disease) Gout, arthritis History of depression HTN (hypertension) Osteoarthritis Renal calculi Renal colic Rotator cuff tendonitis Family History Father Diabetes mellitus Hypercholesteremia Heart attack HTN (hypertension) Mother Diabetes mellitus HTN (hypertension) Heart attack Hypercholesteremia Cardiovascular disease Brother Liver cancer Brother Pancreatic cancer Brother Lymphoma Sister Cervical cancer Sister Cirrhosis of liver Family/Other Cancer Family/Other Ovarian cancer Surgical History H/O lithotripsy History of endometrial ablation History of esophagogastroduodenoscopy (EGD) Hx of colonoscopy Hx of cystoscopy Social History Household Members: Family Alcohol intake: never Patient Tobacco Use Status: Former Tobacco user Quit Date: 1990 Tobacco use type: Cigarette Years Smoked: 25 +/- Second Hand Smoke Exposure: No Advance Directives: No Advance Directives Information Provided: No Current occupational status: disabled Current occupation: rt handed Meds Allergies Allergy/AdvReac Type Severity Reaction Status Date / Time cephalexin [From KEFLEX] Allergy Intermediate RASH Verified 07/17/21 06:41 diazepam [From VALIUM] Allergy Intermediate Anxiety Verified 07/17/21 06:41 Penicillins Allergy Intermediate RASH Verified 07/17/21 06:41 Jakob Rosenthal Allergy Intermediate rash Uncoded 07/15/21 14:03 Home Medications Medication Instructions Recorded Confirmed Last Taken Type duloxetine 60 mg capsule,delayed 60 mg PO BID 02/19/20 10/24/21 10/23/21 History release (Cymbalta) fluticasone propionate 50 2 spray intranasal DAILY 02/19/20 10/24/21 10/23/21 History mcg/actuation nasal spray,suspension folic acid 1 mg tablet 1 mg PO DAILY 02/19/20 10/24/21 10/23/21 History loratadine 10 mg tablet 10 mg PO DAILY 02/19/20 10/24/21 10/23/21 History meclizine 12.5 mg tablet 12.5 mg PO TID PRN Dizziness 02/19/20 10/24/21 10/23/21 History cholecalciferol (vitamin D3) 25 25 mcg PO DAILY 01/09/21 10/24/21 10/23/21 History mcg (1,000 unit) capsule topiramate 50 mg tablet 50 mg PO BID 01/09/21 10/24/21 10/23/21 History quetiapine 100 mg tablet (Seroquel) 50 mg PO BEDTIME PRN Insomnia 06/23/21 10/24/21 10/23/21 History hydrochlorothiazide 12.5 mg tablet 12.5 mg PO DAILY 07/15/21 10/24/21 10/23/21 History sumatriptan succinate 25 mg tablet 5 mg PO ONCE PRN Migraine Headache 07/15/21 10/24/21 Unknown History buspirone 5 mg tablet 1 tab PO DAILY 10/24/21 10/24/21 10/23/21 History clonazepam 0.5 mg tablet 1 tab PO DAILY PRN Anxiety 10/24/21 10/24/21 Unknown History Physical Exam Vital Signs and Narrative: Vital Signs: Last Vital Signs Temp 98.6 F 10/26/21 22:01 Pulse 101 H 10/26/21 22:01 Resp 15 10/26/21 22:32 BP 136/84 10/26/21 22:01 Pulse Ox 98 10/26/21 22:01 O2 Del Method 10/26/21 22:01 BMI result Body Mass Index 39.1 Gen: Appears be in no acute distress HEENT: NCAT, Moist mucosa. Pulmonary: Vesicular breath sounds, fair air entry CVS: Normal S1-S2 Abdomen: BS+, Soft, tender in the left flank Extremities: Warm well perfused Neuro: Alert and awake. Results Labs CBC and Chem 7: 10/26/21 21:53 10/26/21 21:53 Labs: Laboratory Results - last 24 hr 10/26/21 10/26/21 10/26/21 20:49 21:53 21:53 MCV 91.9 MCH 30.8 MCHC 33.5 RDW 13.4 Plt Count 216 MPV 11.1 Immature Gran % (Auto) 0.2 Neut % (Auto) 70.6 Lymph % (Auto) 19.5 L [place] % (Auto) 8.6 Eos % (Auto) 0.8 Baso % (Auto) 0.3 Lymph # (Auto) 2.2 [place] # (Auto) 1.0 Eos # (Auto) 0.1 Baso # (Auto) 0.0 Abs Immat Gran (auto) 0.02 Absolute Neuts (auto) 7.9 Absolute Nucleated RBC 0.000 Nucleated RBC % (auto) 0.0 Anion Gap 14 Estim Creat Clear Calc 61.5 Estimated GFR 46 Random Glucose 122 H Calcium 8.5 Urine Color YELLOW Urine Appearance CLEAR Urine pH 6.0 Ur Specific [place] 1.010 Urine Protein NEG Urine Glucose (UA) NEG Urine Ketones NEG Urine Blood NEG Urine Nitrite NEG Ur Leukocyte Esterase NEG Assessment and Plan (1) Colic, ureteral: Status: Acute Plan 56-year-old female with a past medical history of hypertension, hyperlipidemia, fibromyalgia, arthritis, GERD, history of renal calculi; presented to the hospital today with a chief complaint of left flank pain. Patient has known left UVJ 8 mm stone as noted on the CT scan of 10/24/2021. Urology was notified. Admitted for further management. Left UVJ stone: Pain control Continue Flomax urology aware of the patient.-> Recs NPO after midnight possible intervention in the morning. Urinalysis negative for infection. History of hypertension/hyperlipidemia: Continue home medications. DVT prophylaxis: Subcu heparin Code status: Full code Quality Stroke Does the patient have a stroke diagnosis?: No VTE Prior VTE?: No VTE Risk Level:: Medical - moderate - high VTE Device Contraindication: Treatment Not Indicated VTE Drug Contraindication: N/A - Med Ordered
[2021-10-26] MEDS: Dextrose 5 % and 0.45 % NaCl 1,000 ML 50 ML IVCONT (23:00)
[2021-10-27] VITALS (9 sets, daily range): BP systolic 120–149; BP diastolic 72–99; PULSE 88–101; RESP 16–20; TEMP 36.3–37.1; O2SAT 94–100
[2021-10-27 01:40] LABS: COVID-19 Test Negative (Negative)
--- NOTE | 2021-10-27 02:15 | PC.NURSE ---
Patient medicated per emar and states that she is feeling better.
[2021-10-27 03:57] LABS: Basophils Percent Auto 0.2 % (0-2); Eosinophils Absolute Auto 0.1 X10*3/uL (0.0-0.4); Eosinophils Percent Auto 0.9 % (0-4); Hematocrit 35.1 % (37.0-47.0); Hemoglobin 11.7 g/dl (12.0-16.0); Imm Gran Abs Auto 0.04 X10*3/uL (0.00-0.03); Imm Gran Pct Auto 0.4 % (0.0-0.4); Lymphocytes Percent Auto 20.2 % (20-40); MANUAL DIFF FLAG NO; Mean Corpuscular HGB Conc 33.3 g/dl (31.0-35.0); Mean Corpuscular Hemoglobin 30.5 pg (27.0-33.0); Mean Corpuscular Volume 91.6 fL (80.0-98.0); Mean Platelet Volume 11.5 fL (9.4-12.3); Monocytes Absolute Auto 0.9 X10*3/uL (0.1-1.2); Monocytes Percent Auto 9.5 % (2-11); Neutrophils Absolute Auto 6.8 x10*3/uL (2.0-8.3); Neutrophils Percent Auto 68.8 % (45-73); Platelet Count 178 X10*3/uL (160-400); Red Blood Count 3.83 X10*6/uL (4.20-5.50); Red Cell Distribution Width 13.3 % (11.0-16.0); White Blood Count 9.9 X10*3/uL (4.8-10.8)
[2021-10-27 04:30] LABS: Anion Gap 8 (12-20); Blood Urea Nitrogen 14 mg/dL (9-16); Calcium 7.7 mg/dL (8.4-10.2); Carbon Dioxide 24 mmol/L (22-29); Chloride 109 mmol/L (96-108); Creatinine Clr Calc Pharmacy 72.3; Estimated Glomerular Filt Rate 56; Glucose Random 114 mg/dL (60-115); Potassium 3.8 mmol/L (3.3-5.1); Sodium 137 mmol/L (135-145)
--- NOTE | 2021-10-27 08:04 | PHA.MEDREC ---
Pharmacy Consult ? Medication Reconciliation Pharmacy has reviewed the medication reconciliation completed by Clara. Patient just discharged , med rec completed by Ayah on 10/24. Patient was prescribed tamsulosin on discharge therefore I add medication to list. Shelly Cline, PharmD
[2021-10-27] MEDS: Tamsulosin HCL 0.4 MG CAPSULE PO (08:12)
--- NOTE | 2021-10-27 10:20 | HO.PM.IMPN ---
Subjective Subjective Date of Service: 10/27/21 Interval History: f/u renal stone interval history: pain is better Review of Systems no fever abd pain no hematuria Physical Exam Vital Signs: Vital Signs: Last Vital Signs Temp 98.6 F 10/26/21 22:01 Pulse 96 10/27/21 00:14 Resp 20 10/27/21 00:14 BP 130/74 10/27/21 00:14 Pulse Ox 94 10/27/21 00:14 O2 Del Method 10/27/21 00:14 BMI result Body Mass Index 39.1 Const: Other: General: AO X 3, no acute distress Resp: CTA bilateral CVS: S1,S2,RRR GI: +BS, NT, no distention : mild left flank tenderness Skin: No rash Neuro: motor grossly intact Psych: appropriate affect Objective Data Active Medications Acetaminophen (Acetaminophen 325 Mg Tablet) 650 mg PO Q6H PRN PRN Reason: Pain, Mild (Pain Scale 1-3) Heparin Sodium (Porcine) (Heparin Sodium,Porcine 5,000 Unit/Ml Vial) 5,000 unit SUBCUT Q8H [facility] Hydromorphone HCl (Hydromorphone Hcl 1 Mg/Ml Syringe) 0.5 mg IVPUSH Q4H PRN; Protocol PRN Reason: Pain, Severe (Pain Scale 7-10) Dextrose/Sodium Chloride (D51/2ns) 1,000 mls @ 50 mls/hr IVCONT .Q20H [facility] Last Admin: 10/26/21 23:00 Dose: 50 mls/hr Documented By: PHONG Melatonin (Melatonin 3 Mg Tablet) 6 mg PO BEDTIME PRN PRN Reason: Insomnia Senna (Sennosides 8.6 Mg Tablet) 17.2 mg PO BEDTIME PRN PRN Reason: Constipation Sodium Chloride (0.9 % Sodium Chloride Flush 3 Ml Syringe) 3 ml IVFLUSH QSHIFT [facility] Last Admin: 10/27/21 07:13 Dose: Not Given Documented By: ALEX Non-Admin Reason: IV Running Tamsulosin HCl (Tamsulosin Hcl 0.4 Mg Capsule) 0.4 mg PO DAILY [facility] Last Admin: 10/27/21 08:12 Dose: 0.4 mg Documented By: PHILIPP Labs CBC & Chem 7: 10/27/21 03:40 10/27/21 03:40 Labs: Laboratory Results - last 24 hr 10/26/21 10/26/21 10/26/21 20:49 21:53 21:53 MCV 91.9 MCH 30.8 MCHC 33.5 RDW 13.4 Plt Count 216 MPV 11.1 Immature Gran % (Auto) 0.2 Neut % (Auto) 70.6 Lymph % (Auto) 19.5 L [place] % (Auto) 8.6 Eos % (Auto) 0.8 Baso % (Auto) 0.3 Lymph # (Auto) 2.2 [place] # (Auto) 1.0 Eos # (Auto) 0.1 Baso # (Auto) 0.0 Abs Immat Gran (auto) 0.02 Absolute Neuts (auto) 7.9 Absolute Nucleated RBC 0.000 Nucleated RBC % (auto) 0.0 Anion Gap 14 Estim Creat Clear Calc 61.5 Estimated GFR 46 Random Glucose 122 H Calcium 8.5 Urine Color YELLOW Urine Appearance CLEAR Urine pH 6.0 Ur Specific [place] 1.010 Urine Protein NEG Urine Glucose (UA) NEG Urine Ketones NEG Urine Blood NEG Urine Nitrite NEG Ur Leukocyte Esterase NEG COVID-19 ([facility]) COVID-19 Clin Com 10/27/21 10/27/21 10/27/21 01:15 03:40 03:40 MCV 91.6 MCH 30.5 MCHC 33.3 RDW 13.3 Plt Count 178 MPV 11.5 Immature Gran % (Auto) 0.4 Neut % (Auto) 68.8 Lymph % (Auto) 20.2 [place] % (Auto) 9.5 Eos % (Auto) 0.9 Baso % (Auto) 0.2 Lymph # (Auto) 2.0 [place] # (Auto) 0.9 Eos # (Auto) 0.1 Baso # (Auto) 0.0 Abs Immat Gran (auto) 0.04 H Absolute Neuts (auto) 6.8 Absolute Nucleated RBC 0.000 Nucleated RBC % (auto) 0.0 Anion Gap 8 L Estim Creat Clear Calc 72.3 Estimated GFR 56 Random Glucose 114 Calcium 7.7 L D Urine Color Urine Appearance Urine pH Ur Specific [place] Urine Protein Urine Glucose (UA) Urine Ketones Urine Blood Urine Nitrite Ur Leukocyte Esterase COVID-19 ([facility]) Negative COVID-19 Clin Com See Note Assessment and Plan (1) Kidney stone on left side: Status: Acute Assessment and Plan: 56-year-old female with a past medical history of hypertension, hyperlipidemia, fibromyalgia, arthritis, GERD, history of renal calculi; presented to the hospital today with a chief complaint of left flank pain.? Patient has known left UVJ 8 mm stone as noted on the CT scan of 10/24/2021.? Urology was notified.? Admitted for further management.? Left UVJ stone: Pain control Continue Flomax urology aware of the patient.-> Recs NPO after midnight probable intervention later today Urinalysis negative for infection. History of hypertension/hyperlipidemia: Continue home medications.? Obesity: weight loss advise to minimize impact on health DVT prophylaxis:? Subcu heparin Code status:? Full code Need for inapatient: obstructive kidney stone that will need intervention Quality Stroke Does the patient have a stroke diagnosis?: No VTE Prior VTE?: No VTE Risk Level:: Medical - moderate - high VTE Device Contraindication: Treatment Not Indicated VTE Drug Contraindication: N/A - Med Ordered
[2021-10-27] MEDS: HYDROmorphone HCl 1 MG/ML SYRINGE 0.5 MG IVPUSH (12:18)
--- NOTE | 2021-10-27 13:01 | PM.UROCN ---
History of Present Illness Consult details Consult date: 10/27/21 Narrative: Repeat admission to emergency department for distal left stone pain Had been seen in emergency room on Tuesday and had gone home Imaging - 10/24/21 There is moderate left hydroureteronephrosis with asymmetric left perinephric fat stranding. The dilated left ureter is followed to the pelvis where there is a 8 mm obstructing calculus Recurrent left flank pain prompting readmission to hospital Discussed with Milady at bedside Would like to move ahead with ureteroscopy and stent placement Review of Systems Constitutional: Constitutional: Reports as per HPI and Reports no additional constitutional complaints Cardiovascular: Cardiovascular: Reports as per HPI and Reports no additional cardiovascular complaints Respiratory: Respiratory: Reports as per HPI and Reports no additional respiratory complaints Gastrointestinal: Gastrointestinal: Reports as per HPI and Reports no additional gastrointestinal complaints Genitourinary: Genitourinary: Reports as per HPI Musculoskeletal: Musculoskeletal: Reports no additional musculoskeletal complaints and Reports as per HPI Neurologic: Reports system reviewed and no additional complaints, except as documented and Reports as per HPI PMF Past Medical History Medical History Arthritis of left acromioclavicular joint Bursitis of left shoulder Class 2 obesity Fibromyalgia GERD (gastroesophageal reflux disease) Gout, arthritis History of depression HTN (hypertension) Osteoarthritis Renal calculi Renal colic Rotator cuff tendonitis Family History Family History Father Diabetes mellitus Hypercholesteremia Heart attack HTN (hypertension) Mother Diabetes mellitus HTN (hypertension) Heart attack Hypercholesteremia Cardiovascular disease Brother Liver cancer Brother Pancreatic cancer Brother Lymphoma Sister Cervical cancer Sister Cirrhosis of liver Family/Other Cancer Family/Other Ovarian cancer Surgical History Surgical History H/O lithotripsy History of endometrial ablation History of esophagogastroduodenoscopy (EGD) Hx of colonoscopy Hx of cystoscopy Social History Social History Household Members: Family Alcohol intake: never Patient Tobacco Use Status: Former Tobacco user Quit Date: 1990 Tobacco use type: Cigarette Years Smoked: 25 +/- Second Hand Smoke Exposure: No Use of substances other than those prescribed or required for medical reasons: No Advance Directives: No Advance Directives Information Provided: No Patient : No Current occupational status: disabled Current occupation: rt handed Meds Allergies Allergy/AdvReac Type Severity Reaction Status Date / Time cephalexin [From KEFLEX] Allergy Intermediate RASH Verified 07/17/21 06:41 diazepam [From VALIUM] Allergy Intermediate Anxiety Verified 07/17/21 06:41 Penicillins Allergy Intermediate RASH Verified 07/17/21 06:41 Jakob Rosenthal Allergy Intermediate rash Uncoded 07/15/21 14:03 Active Medications: Current Medications Acetaminophen (Acetaminophen 325 Mg Tablet) 650 mg PO Q6H PRN PRN Reason: Pain, Mild (Pain Scale 1-3) Heparin Sodium (Porcine) (Heparin Sodium,Porcine 5,000 Unit/Ml Vial) 5,000 unit SUBCUT Q8H [facility] Hydromorphone HCl (Hydromorphone Hcl 1 Mg/Ml Syringe) 0.5 mg IVPUSH Q4H PRN; Protocol PRN Reason: Pain, Severe (Pain Scale 7-10) Last Admin: 10/27/21 12:18 Dose: 0.5 mg Dextrose/Sodium Chloride (D51/2ns) 1,000 mls @ 50 mls/hr IVCONT .Q20H [facility] Last Admin: 10/26/21 23:00 Dose: 50 mls/hr Levofloxacin (Levaquin) 500 mg in 100 mls @ 100 mls/hr IV PREOP ONE Stop: 10/27/21 13:58 Melatonin (Melatonin 3 Mg Tablet) 6 mg PO BEDTIME PRN PRN Reason: Insomnia Senna (Sennosides 8.6 Mg Tablet) 17.2 mg PO BEDTIME PRN PRN Reason: Constipation Sodium Chloride (0.9 % Sodium Chloride Flush 3 Ml Syringe) 3 ml IVFLUSH QSHIFT [facility] Last Admin: 10/27/21 11:51 Dose: Not Given Tamsulosin HCl (Tamsulosin Hcl 0.4 Mg Capsule) 0.4 mg PO DAILY [facility] Last Admin: 10/27/21 08:12 Dose: 0.4 mg Home Medications Medication Instructions Recorded Confirmed Last Taken Type duloxetine 60 mg capsule,delayed 60 mg PO BID 02/19/20 10/27/21 10/23/21 History release (Cymbalta) folic acid 1 mg tablet 1 mg PO DAILY 02/19/20 10/27/21 10/23/21 History loratadine 10 mg tablet 10 mg PO DAILY 02/19/20 10/27/21 10/23/21 History meclizine 12.5 mg tablet 12.5 mg PO TID PRN Dizziness 02/19/20 10/27/21 10/23/21 History topiramate 50 mg tablet 50 mg PO BID 01/09/21 10/27/21 10/23/21 History hydrochlorothiazide 12.5 mg tablet 12.5 mg PO DAILY 07/15/21 10/27/21 10/23/21 History sumatriptan succinate 25 mg tablet 5 mg PO ONCE PRN Migraine Headache 07/15/21 10/27/21 Unknown History buspirone 5 mg tablet 1 tab PO DAILY 10/24/21 10/27/21 10/23/21 History clonazepam 0.5 mg tablet 1 tab PO DAILY PRN Anxiety 10/24/21 10/27/21 Unknown History cholecalciferol (vitamin D3) 25 1 cap PO DAILY 10/27/21 10/27/21 Unknown History mcg (1,000 unit) capsule (Vitamin D3) fluticasone propionate 50 2 spray intranasal DAILY 10/27/21 10/27/21 Unknown History mcg/actuation nasal spray,suspension pyridoxine (vitamin B6) 100 mg 1 tab PO DAILY 10/27/21 10/27/21 Unknown History tablet quetiapine 50 mg tablet 1 tab PO BEDTIME PRN Insomnia 10/27/21 10/27/21 Unknown History tamsulosin 0.4 mg capsule 0.4 mg PO DAILY 10/27/21 10/27/21 Unknown History Physical Exam Vital Signs: Vital Signs: Last Vital Signs Temp 98.6 F 10/26/21 22:01 Pulse 96 10/27/21 00:14 Resp 20 10/27/21 00:14 BP 130/74 10/27/21 00:14 Pulse Ox 94 10/27/21 00:14 O2 Del Method 10/27/21 00:14 BMI result Body Mass Index 39.1 Const: General: cooperative, healthy appearing, comfortable and no acute distress Orientation/consciousness: patient oriented x3 HEENT: Face and sinus: Yes normal facial exam Mouth: moist mucous membranes Neck: Neck: Yes normal visual inspection, Yes full ROM and Yes trachea midline Chest: Chest palpation & inspection: normal inspection of the chest Resp: Effort & Inspection: normal respiratory effort, able to speak in complete sentences and no respiratory distress GI: Inspection: Yes normal to inspection Back/Spine/Pelvis: Cervical Spine: normal cervical lordosis Thoracic/Lumbar Spine: thoracic and lumbar spine normal to inspection Skin: General skin exam: no rashes or lesions noted Neuro: General: patient oriented x3, tone normal and moves all extremities Extrem: General: Yes normal to inspection and Yes capillary refill normal Results Labs Result diagrams: 10/27/21 03:40 10/27/21 03:40 Labs: Abnormal lab results 10/26/21 10/26/21 10/27/21 Range/Units 21:53 21:53 03:40 WBC 11.2 H (4.8-10.8) X10*3/uL RBC 3.83 L (4.20-5.50) X10*6/uL Hgb 11.7 L (12.0-16.0) g/dl Hct 35.1 L (37.0-47.0) % Lymph % (Auto) 19.5 L (20-40) % Abs Immat Gran (auto) 0.04 H (0.00-0.03) X10*3/uL Chloride (96-108) mmol/L Anion Gap (12-20) Random Glucose 122 H (60-115) mg/dL Calcium (8.4-10.2) mg/dL 10/27/21 Range/Units 03:40 WBC (4.8-10.8) X10*3/uL RBC (4.20-5.50) X10*6/uL Hgb (12.0-16.0) g/dl Hct (37.0-47.0) % Lymph % (Auto) (20-40) % Abs Immat Gran (auto) (0.00-0.03) X10*3/uL Chloride 109 H (96-108) mmol/L Anion Gap 8 L (12-20) Random Glucose (60-115) mg/dL Calcium 7.7 L D (8.4-10.2) mg/dL Short CBC 10/26/21 10/27/21 Range/Units 21:53 03:40 WBC 11.2 H 9.9 (4.8-10.8) X10*3/uL Hgb 14.0 11.7 L (12.0-16.0) g/dl Hct 41.8 35.1 L (37.0-47.0) % Plt Count 216 178 (160-400) X10*3/uL BMP 10/26/21 10/27/21 21:53 03:40 Sodium 139 137 Potassium 3.7 3.8 Chloride 104 109 H Carbon Dioxide 25 24 BUN 15 14 Creatinine 1.21 1.03 Calcium 8.5 7.7 L D Urine 10/26/21 Range/Units 20:49 Urine Color YELLOW Urine Appearance CLEAR Urine pH 6.0 (5.0-8.0) Ur Specific [place] 1.010 (1.005-1.025) Urine Protein NEG (NEG-TRACE) MG/DL Urine Glucose (UA) NEG (NEG) MG/DL All other labs normal. Assessment and Plan (1) Kidney stone on left side: Status: Acute (2) Colic, ureteral: Status: Acute Plan Ureteroscopy We discussed the nature of the decision and reasonable alternatives for performing the above surgery. Interventions include chemical dissolution, ESWL, ureteroscopy with laser lithotripsy and stent placement, PCNL. Options such as medical therapy were discussed. The relative uncertainties and benefits related to each alternate procedure were adequately discussed. General surgical risks including, but not limited to, pain, bleeding, infection, myocardial infarction, pulmonary embolus, deep vein thrombosis and cerebrovascular accident which may result in further hospitalization were discussed. Full disclosure of the procedure as well as all major risks, benefits and complications were discussed including but not limited to damage to the urethra, bladder and kidney infection, damage to the ureter, stent migration or malposition, scarring to the renal pelvis, remnant stone fragments, subsequent stone passage with need for secondary procedures. The overall secondary procedure rate is approximately 10-15%. The success rate of the procedure was discussed. Success of the procedure in the short-term does not necessarily guarantee that long-term success will be maintained. Suitable follow up will need to be maintained. The patient showed understanding of discussion and wishes to proceed with - cystoscopy, retrograde, ureteroscopy, possible lithotripsy/stone basketing and stent on the left side Procedures Date of Service Date of Service: 10/27/21
--- NOTE | 2021-10-27 14:13 | PC.NURSE ---
report given to sss
--- NOTE | 2021-10-27 15:47 | P.CONAN_ITS ---
[facility] Active Problems Active Problems: All Active Problems (Updated 10/26/21 @ 23:10 by Joseph Shell MD) Kidney stone on left side (Acute) TONIO (acute kidney injury) (Acute) Colic, ureteral (Acute) Hydronephrosis with obstructing calculus (Acute) Chronic idiopathic constipation (Acute) GERD (gastroesophageal reflux disease) (Acute) Gastroparesis (Acute) Sleep apnea (Acute) Tendonitis of left rotator cuff (Acute) Injury of tendon of right rotator cuff (Acute) Impingement syndrome of both shoulders (Acute) Primary osteoarthritis of both knees (Acute) Paresthesia and pain of both upper extremities (Acute) Arthritis of right acromioclavicular joint (Acute) Snoring (Acute) Daytime sleepiness (Acute) Palpitations (Acute) Bursitis of left shoulder (Acute) Arthritis of left acromioclavicular joint (Acute) Gout, arthritis (Acute) Renal calculi (Acute) Past Medical History Medical History Arthritis of left acromioclavicular joint Bursitis of left shoulder Class 2 obesity Fibromyalgia GERD (gastroesophageal reflux disease) Gout, arthritis History of depression HTN (hypertension) Osteoarthritis Renal calculi Renal colic Rotator cuff tendonitis Functional capacity: independent ambulation Patient : No Family History Family History Father Diabetes mellitus Hypercholesteremia Heart attack HTN (hypertension) Mother Diabetes mellitus HTN (hypertension) Heart attack Hypercholesteremia Cardiovascular disease Brother Liver cancer Brother Pancreatic cancer Brother Lymphoma Sister Cervical cancer Sister Cirrhosis of liver Family/Other Cancer Family/Other Ovarian cancer Family history of problems with anesthesia: No Surgical History Surgical History H/O lithotripsy History of endometrial ablation History of esophagogastroduodenoscopy (EGD) Hx of colonoscopy Hx of cystoscopy History of Problems with Anesthesia: No Social History Social History Household Members: Family Alcohol intake: never Patient Tobacco Use Status: Former Tobacco user Quit Date: 1990 Tobacco use type: Cigarette Years Smoked: 25 +/- Second Hand Smoke Exposure: No Use of substances other than those prescribed or required for medical reasons: No Advance Directives: No Advance Directives Information Provided: No Patient : No Current occupational status: disabled Current occupation: rt handed Meds Allergies Allergy/AdvReac Type Severity Reaction Status Date / Time cephalexin [From KEFLEX] Allergy Intermediate RASH Verified 07/17/21 06:41 diazepam [From VALIUM] Allergy Intermediate Anxiety Verified 07/17/21 06:41 Penicillins Allergy Intermediate RASH Verified 07/17/21 06:41 Jakob Rosenthal Allergy Intermediate rash Uncoded 07/15/21 14:03 Active Medications: Current Medications Acetaminophen (Acetaminophen 325 Mg Tablet) 650 mg PO Q6H PRN PRN Reason: Pain, Mild (Pain Scale 1-3) Heparin Sodium (Porcine) (Heparin Sodium,Porcine 5,000 Unit/Ml Vial) 5,000 unit SUBCUT Q8H [facility] Hydromorphone HCl (Hydromorphone Hcl 1 Mg/Ml Syringe) 0.5 mg IVPUSH Q4H PRN; Protocol PRN Reason: Pain, Severe (Pain Scale 7-10) Last Admin: 10/27/21 12:18 Dose: 0.5 mg Dextrose/Sodium Chloride (D51/2ns) 1,000 mls @ 50 mls/hr IVCONT .Q20H [facility] Last Admin: 10/26/21 23:00 Dose: 50 mls/hr Melatonin (Melatonin 3 Mg Tablet) 6 mg PO BEDTIME PRN PRN Reason: Insomnia Senna (Sennosides 8.6 Mg Tablet) 17.2 mg PO BEDTIME PRN PRN Reason: Constipation Sodium Chloride (0.9 % Sodium Chloride Flush 3 Ml Syringe) 3 ml IVFLUSH QSHIFT [facility] Last Admin: 10/27/21 11:51 Dose: Not Given Tamsulosin HCl (Tamsulosin Hcl 0.4 Mg Capsule) 0.4 mg PO DAILY [facility] Last Admin: 10/27/21 08:12 Dose: 0.4 mg Home Medications Medication Instructions Recorded Confirmed Last Taken Type duloxetine 60 mg capsule,delayed 60 mg PO BID 02/19/20 10/27/21 10/23/21 History release (Cymbalta) folic acid 1 mg tablet 1 mg PO DAILY 02/19/20 10/27/21 10/23/21 History loratadine 10 mg tablet 10 mg PO DAILY 02/19/20 10/27/21 10/23/21 History meclizine 12.5 mg tablet 12.5 mg PO TID PRN Dizziness 02/19/20 10/27/21 10/23/21 History topiramate 50 mg tablet 50 mg PO BID 01/09/21 10/27/21 10/23/21 History hydrochlorothiazide 12.5 mg tablet 12.5 mg PO DAILY 07/15/21 10/27/21 10/23/21 History sumatriptan succinate 25 mg tablet 5 mg PO ONCE PRN Migraine Headache 07/15/21 10/27/21 Unknown History buspirone 5 mg tablet 1 tab PO DAILY 10/24/21 10/27/21 10/23/21 History clonazepam 0.5 mg tablet 1 tab PO DAILY PRN Anxiety 10/24/21 10/27/21 Unknown History cholecalciferol (vitamin D3) 25 1 cap PO DAILY 10/27/21 10/27/21 Unknown History mcg (1,000 unit) capsule (Vitamin D3) fluticasone propionate 50 2 spray intranasal DAILY 10/27/21 10/27/21 Unknown History mcg/actuation nasal spray,suspension pyridoxine (vitamin B6) 100 mg 1 tab PO DAILY 10/27/21 10/27/21 Unknown History tablet quetiapine 50 mg tablet 1 tab PO BEDTIME PRN Insomnia 10/27/21 10/27/21 Unknown History tamsulosin 0.4 mg capsule 0.4 mg PO DAILY 10/27/21 10/27/21 Unknown History Exam Exam Date and Time: October 27, 2021 154 Height,Weight and Vital Signs: Height 5 ft 4 in Weight 103.419 kg Last Vital Signs Temp 98.8 F 10/27/21 15:06 Pulse 88 10/27/21 15:06 Resp 16 10/27/21 15:06 BP 149/72 H 10/27/21 15:06 Pulse Ox 97 10/27/21 15:06 O2 Del Method 10/27/21 15:06 Pertinent Lab Results Pertinent Lab Results: Laboratory Tests 10/26/21 10/26/21 10/26/21 20:49 21:53 21:53 WBC 11.2 H RBC 4.55 Hgb 14.0 Hct 41.8 MCV 91.9 MCH 30.8 MCHC 33.5 RDW 13.4 Plt Count 216 MPV 11.1 Immature Gran % (Auto) 0.2 Neut % (Auto) 70.6 Lymph % (Auto) 19.5 L [place] % (Auto) 8.6 Eos % (Auto) 0.8 Baso % (Auto) 0.3 Lymph # (Auto) 2.2 [place] # (Auto) 1.0 Eos # (Auto) 0.1 Baso # (Auto) 0.0 Abs Immat Gran (auto) 0.02 Absolute Neuts (auto) 7.9 Absolute Nucleated RBC 0.000 Nucleated RBC % (auto) 0.0 Sodium 139 Potassium 3.7 Chloride 104 Carbon Dioxide 25 Anion Gap 14 BUN 15 Creatinine 1.21 Estim Creat Clear Calc 61.5 Estimated GFR 46 Random Glucose 122 H Calcium 8.5 Urine Color YELLOW Urine Appearance CLEAR Urine pH 6.0 Ur Specific [place] 1.010 Urine Protein NEG Urine Glucose (UA) NEG Urine Ketones NEG Urine Blood NEG Urine Nitrite NEG Ur Leukocyte Esterase NEG COVID-19 ([facility]) COVID-19 Clin Com 10/27/21 10/27/21 10/27/21 01:15 03:40 03:40 WBC 9.9 RBC 3.83 L Hgb 11.7 L Hct 35.1 L MCV 91.6 MCH 30.5 MCHC 33.3 RDW 13.3 Plt Count 178 MPV 11.5 Immature Gran % (Auto) 0.4 Neut % (Auto) 68.8 Lymph % (Auto) 20.2 [place] % (Auto) 9.5 Eos % (Auto) 0.9 Baso % (Auto) 0.2 Lymph # (Auto) 2.0 [place] # (Auto) 0.9 Eos # (Auto) 0.1 Baso # (Auto) 0.0 Abs Immat Gran (auto) 0.04 H Absolute Neuts (auto) 6.8 Absolute Nucleated RBC 0.000 Nucleated RBC % (auto) 0.0 Sodium 137 Potassium 3.8 Chloride 109 H Carbon Dioxide 24 Anion Gap 8 L BUN 14 Creatinine 1.03 Estim Creat Clear Calc 72.3 Estimated GFR 56 Random Glucose 114 Calcium 7.7 L D Urine Color Urine Appearance Urine pH Ur Specific [place] Urine Protein Urine Glucose (UA) Urine Ketones Urine Blood Urine Nitrite Ur Leukocyte Esterase COVID-19 ([facility]) Negative COVID-19 Clin Com See Note Airway Mallampati Class: IV TM Dist: >3cm Neck ROM: Full Heart: RRR Lungs: CTA Assessment and Plan Final Anesthetic Review Family History of Problems with Anesthesia: No History of Problems with Anesthesia: No NPO: Yes ASA Class: III Final Preanesthetic Review: No Changes in Pt Med Stat, Meds/Allgs Chart Reviewed, Consent Obtained/Reviewed and Anes Risks/Benef Reviewed Patient Risk: Intermediate Procedure Risk: Low Anesthetic Plan Anesthetic Plan: GA Disposition: Standard PACU
[2021-10-27] MEDS: Lactated Ringers 1,000 ML 100 ML IVCONT (16:05)
--- NOTE | 2021-10-27 16:40 | MHC.SHP ---
Pre-Procedural Eval Section A Date of Service: 10/27/21 The patient is an INPATIENT: Yes Changes since office visit: No Cold of Flu in the past 2 weeks, No New Medical Problems, No Changes in Medication and No Patient answered all questions The History & Physical has been completed within 30 days and I have reviewed it.: Yes Section B Chief Complaint: Ureteral calculus Details of Present Illness: cystoscopy, left retrograde, left ureteroscopy with laser lithotripsy stent placement Relevant Family History (Specify if Yes): No Relevant Social History: None Present Medications: see Short Stay Collaborative assessment Medical History: Significant History History of Previous Operations: Relevant previous surgery/procedure and date(s) Allergies: Allergies Allergy/AdvReac Type Severity Reaction Status Date / Time cephalexin [From KEFLEX] Allergy Intermediate RASH Verified 07/17/21 06:41 diazepam [From VALIUM] Allergy Intermediate Anxiety Verified 07/17/21 06:41 Penicillins Allergy Intermediate RASH Verified 07/17/21 06:41 Jakob Rosenthal Allergy Intermediate rash Uncoded 07/15/21 14:03 Review of Systems Sugical H&P ROS: Negative: Constitution, Cardiovascular, Respiratory, Neurological, Psychiatric, Hem-Onc, Allergic/Immunologic, Gastrointestinal, Genitourinary, Musculoskeletal, Integumentary, Endocrine and Eyes/Ears/Nose/Throat Exam Surgical H&P Exam: Normal: HEENT, Normal: Heart, Normal: Lungs, Normal: Extremities, Normal: Abdomen, Normal: Skin and Normal: Neurological Plan Diagnosis/Plan: Unchanged ( cystoscopy, left retrograde, left ureteroscopy with laser lithotripsy and stent placement) I have reviewed the history and physical and performed a pertinent physical examination on my patient. No changes have occurred unless specified.
--- NOTE | 2021-10-27 17:14 | W.PM.OPN ---
Operative Note Operative Note Date of Service: 10/27/21 Narrative: PreOperative Diagnosis: left distal ureteric stone with hydroureteronephrosis Post Operative Diagnosis: left distal ureteric stone with hydroureteronephrosis Procedure: - cystoscopy, left retrograde - left dilatation of ureteric orifice under fluoroscopy - left ureteroscopy, laser lithotripsy, stone basketing - left stent placement Surgeon: Dr Alan Medrano Anesthesia: General Indications for procedure: initial presentation with pain on Tuesday. Pain resolved. Re-presented on Tuesday evening. 8 mm distal left stone had been seen on CT on Tuesday morning. Unlikely that stone has passed. Recommend intervention. Procedure: After informed consent was verified patient was brought to the operating placed in supine position. Anesthesia was administered per protocol. Patient was placed in modified dorsal lithotomy position and prepped and draped in a sterile fashion. Safety pause time-out and side of surgery confirmed. Antibiotics confirmed. A 22 [place] cystoscope was inserted per urethra. Bladder was normal in its entirety. Both ureteric orifices were in normal position. The Left ureteric orifice was swollen and ureteric orifice was cannulated and a retrograde examination was performed. filling defects seen in distal ureteric location . A Sensor guidewire was placed up to the level of the renal pelvis under fluoroscopy. There was discolored outflow. The rigid cystoscope was removed. A Oswaldo dilator was placed over the Sensor guidewire and used to dilate the ureteric orifice under fluoroscopy. The dilator was removed. The semi rigid ureteral scope was placed alongside the Sensor guidewire. stone was located junction between distal and mid ureter. Holmium laser activated. Three hundred sixty micron fiber used to break stone into small pieces. Flat wire basket used to remove fragments that will be sent for analysis. A 6 [place]ic by Twenty-two cm double-J stent was placed into the renal pelvis and bladder under a combination of fluoroscopy and direct visualization. The bladder was emptied. The patient tolerated the procedure well and was extubated in the operating room, and transferred in stable condition to the recovery area. brief course of antibiotics will be provided Pathology: stone fragments Drains: stent is above
--- NOTE | 2021-10-27 18:23 | PC.NURSE ---
1271 MESSAGE TO HOSPITALIST TEAM TO REVIEW PLAN DISCHARGE FROM UROLOGY AND TO HOME FOLLOWING CYSTOSCOPY PROCEDURE. PER DR. SORIANO OK TO DISCHARGE TO HOME
--- NOTE | 2021-10-27 18:48 | P.DS_ITS ---
DS: Providers Provider Date of Service: 10/27/21 Date of admission: 10/26/21 22:57 Primary care physician: Jayda Mcelroy MD Consults: 10/26/21 22:57 Consult to Urology Routine Consulting Provider: Alan Medrano Reason for consultation: ureteral calculus DS: Diagnosis Discharge Diagnosis (1) Kidney stone on left side: Status: Resolved (2) Colic, ureteral: Status: Acute DS: Summary Hospital Course Hospital Course: Patient presented with Left flank pain and found to have? left distal ureteric stone with hydroureteronephrosis. She underwent -? cystoscopy,? left retrograde - ? left dilatation of ureteric orifice under fluoroscopy - ? left ureteroscopy, laser lithotripsy, stone basketing - ? left stent placement She was discharged after the procedure and will follow up with Dr. Medrano Time Spent with Patient Time attestation: Total time spent providing and/or coordinating discharge services: Discharge coordination time: Greater than 30 minutes Quality: Safe Use of Opioids Does Pt have an Active Cancer Diagnosis on the Problem List?: No Quality: Stroke Does the patient have a stroke diagnosis?: No Physical Exam Vital Signs: Vital Signs: Last Vital Signs Temp 97.3 F 10/27/21 17:37 Pulse 99 10/27/21 18:07 Resp 18 10/27/21 18:07 BP 144/97 H 10/27/21 18:07 Pulse Ox 96 10/27/21 18:07 O2 Del Method 10/27/21 18:07 BMI result Body Mass Index 39.1 DS: Data Data Completed and Pending Completed studies during hospitalization [Text1]: Pending at discharge 10/27/21 17:19 Surgical [PTH] Routine Discharge Plan Discharge Anticipated Discharge Date/Time: 10/27/21 13:46 Patient Disposition: Home, Self-Care Discharge Diagnosis: distal left ureteric stone Referrals: Jayda Patiño MD [Primary Care Provider] - 1 Week Discharge Medications: New phenazopyridine [Pyridium] 100 mg tablet 100 mg PO TID PRN (Reason: spasm) 4 Days Qty: 12 0RF sulfamethoxazole-trimethoprim [Bactrim DS] 800-160 mg tablet 1 tab PO BID 3 Days Qty: 6 0RF tramadol 50 mg tablet 50 mg PO Q6H PRN (Reason: pain (scale score 1-3)) Qty: 8 0RF tamsulosin 0.4 mg capsule 0.4 mg PO BEDTIME 14 Days Qty: 14 0RF Continued allopurinol 100 mg tablet 100 mg PO DAILY Qty: 90 3RF meloxicam 15 mg tablet 15 mg PO DAILY Qty: 30 3RF lansoprazole 30 mg capsule,delayed release(DR/EC) 30 mg PO DAILY Qty: 30 2RF tizanidine 4 mg tablet 4 mg PO BID PRN (Reason: muscle spasticity) 30 Days Qty: 60 6RF tramadol 50 mg tablet 50 mg PO Q6H PRN (Reason: pain) Qty: 120 2RF meclizine 12.5 mg Tablet 12.5 mg PO TID PRN (Reason: Dizziness) folic acid 1 mg Tablet 1 mg PO DAILY loratadine 10 mg Tablet 10 mg PO DAILY duloxetine [Cymbalta] 60 mg Capsule,Delayed Release(Dr/Ec) 60 mg PO BID buspirone 5 mg tablet 1 tab PO DAILY clonazepam 0.5 mg tablet 1 tab PO DAILY PRN (Reason: Anxiety) pyridoxine (vitamin B6) 100 mg tablet 1 tab PO DAILY cholecalciferol (vitamin D3) [Vitamin D3] 25 mcg (1,000 unit) capsule 1 cap PO DAILY quetiapine 50 mg tablet 1 tab PO BEDTIME PRN (Reason: Insomnia) tamsulosin 0.4 mg Capsule 0.4 mg PO DAILY fluticasone propionate 50 mcg/actuation [place],Suspension 2 spray INTRANASAL DAILY Rx Instructions: administer into each nostril topiramate 50 mg tablet 50 mg PO BID Linzess 290 mcg capsule 290 mcg PO DAILY Qty: 30 6RF metoclopramide HCl 5 mg tablet 5 mg PO .TIDAC Qty: 90 6RF senna 8.6 mg capsule 17.2 mg PO BID 30 Days Qty: 120 6RF magnesium oxide 400 mg (241.3 mg magnesium) tablet 400 mg PO BID Qty: 60 6RF sumatriptan succinate 25 mg tablet 5 mg PO ONCE PRN (Reason: Migraine Headache) hydrochlorothiazide 12.5 mg tablet 12.5 mg PO DAILY Discharge Orders: Discharge Order (Routine); Ordered 10/27/21 Ordered By: Alan Medrano Diet: Advance to usual diet Activity on Discharge: As tolerated Stand Alone Forms: Patient Portal Discharge page Care Plan Goals: stones Health Concerns: stones Plan of Treatment: stones Assessment: stones Patient Instructions: Ureteroscopy (DC) Discharge Date/Time: 10/27/21 18:25
[2021-11-02 03:41] LABS: Stone Source LEFT URETERAL STONE
== END 2021-10-27 18:25 | disposition home or self-care (01) | DRG 446 ==
LOC: HO.ED 21:42 → HO.EDOVER 23:05
PROVIDERS: Emergency Medicine; Urology; Admitting Provider Hospitalist; Emergency Provider Internal Medicine; PCP Internal Medicine; Visit Provider Internal Medicine
PROC: 0TC78ZZ Extirpation of Matter from Left Ureter, Via Natural or Artificial Opening Endoscopic (ICD-10-PCS; principal; 2021-10-27 16:30)
DX: N13.2 Hydronephrosis with renal and ureteral calculous obstruction (principal); E66.9 Obesity, unspecified; E78.5 Hyperlipidemia, unspecified; K21.9 Gastro-esophageal reflux disease without esophagitis; M10.9 Gout, unspecified; I10 Essential (primary) hypertension; M79.7 Fibromyalgia; Z87.891 Personal history of nicotine dependence; Z87.442 Personal history of urinary calculi; Z68.39 Body mass index [BMI] 39.0-39.9, adult; Z20.822 Contact with and (suspected) exposure to COVID-19; Z88.0 Allergy status to penicillin; Z88.1 Allergy status to other antibiotic agents; Z88.8 Allergy status to other drugs, medicaments and biological substances; Z79.51 Long term (current) use of inhaled steroids; Z79.899 Other long term (current) drug therapy
CPT/HCPCS: 36415; 76775; 80048; 81003; 82365; 85025; 87635; 88300; 96361; 96374; 96375; 99284; 99285; C1758; C1769; C2617; J1100; J1170; J1885; J1956; J2250; J2270; J2405; J3010; Q9967

== ENCOUNTER → 2021-11-04 14:44 | Outpatient (BNVA) | payer MEDICAID, SELFPAY | PROVIDERS: PCP Internal Medicine; Visit Provider Urology | DX: Z48.816 Encounter for surgical aftercare following surgery on the genitourinary system (principal) | CPT/HCPCS: 52310; 99212 ==

== ENCOUNTER 2021-11-05 12:31 | Outpatient (RCR) | payer MEDICAID, SELFPAY | END 2022-03-22 15:00 | disposition home or self-care (01) | LOC: HO.PT 12:31 | PROVIDERS: PCP Internal Medicine; Visit Provider Orthopaedic Surgery | DX: M25.512 Pain in left shoulder (principal) | CPT/HCPCS: 97161 ==

== ENCOUNTER → 2021-11-17 12:24 | Outpatient (BNVA) | payer MEDICAID, SELFPAY | PROVIDERS: PCP Internal Medicine; Visit Provider Nurse Practitioner | DX: K31.84 Gastroparesis (principal); K59.04 Chronic idiopathic constipation; K21.9 Gastro-esophageal reflux disease without esophagitis; Z79.899 Other long term (current) drug therapy | CPT/HCPCS: 99212 ==

== ENCOUNTER → 2021-12-23 13:10 | Outpatient (BNVA) | payer MEDICAID, SELFPAY | PROVIDERS: PCP Internal Medicine; Referring Provider Internal Medicine; Visit Provider Nurse Practitioner Family | DX: R00.2 Palpitations (principal) | CPT/HCPCS: 99212 ==

== ENCOUNTER → 2022-01-07 13:49 | Outpatient (BNVA) | payer MEDICAID, SELFPAY | PROVIDERS: PCP Internal Medicine; Visit Provider Nurse Practitioner Family | DX: M17.0 Bilateral primary osteoarthritis of knee (principal); M75.41 Impingement syndrome of right shoulder; M75.42 Impingement syndrome of left shoulder; M54.50 Low back pain, unspecified; M53.3 Sacrococcygeal disorders, not elsewhere classified; M79.671 Pain in right foot; M79.672 Pain in left foot | CPT/HCPCS: 99212 ==

== ENCOUNTER 2022-01-08 14:00 | Outpatient (REF) | payer MEDICAID, SELFPAY ==
--- NOTE | ~2022-01-08 | XR_ITS ---
EXAMINATION: 1. RADIOGRAPHS LUMBAR SPINE 2. RADIOGRAPHS SACROILIAC JOINTS 3. RADIOGRAPHS RIGHT FOOT 4. RADIOGRAPHS LEFT FOOT CLINICAL INFORMATION: Low back pain. Sacrococcygeal disorders. Bilateral foot pain. COMPARISON: CT abdomen pelvis October 24, 2021, lumbar spine x-rays January 24, 2018 and radiographs of the bilateral feet December 15, 2015 TECHNIQUE: 3 views of the lumbar spine, 3 views of the sacroiliac joints, 3 views of the right foot and 3 views of the left foot were obtained. FINDINGS: Lumbar spine/sacroiliac joints: 5 nonrib-bearing lumbar vertebral bodies are visualized. There is minimal anterolisthesis of L4 and L5. Alignment is otherwise unremarkable. Lumbar vertebral body heights are maintained. There is moderate narrowing of the L5/S1 disc space height. Mild to moderate degenerative changes of the posterior elements of the lower lumbar spine. Anterior osteophytes noted at the L5/S1 level. Sacroiliac joints are symmetric. No gross fracture of the sacrum or coccyx. The pelvic ring is intact. Small calcifications of the pelvis are likely vascular in nature. Right foot: Bones of the midfoot are well aligned. Moderate hallux valgus deformity of the first toe with mild associated degenerative changes of the first MTP joint. No tarsal, metatarsal or phalangeal fracture. Mild degenerative changes of scattered IP joints. Moderate sized posterior and plantar calcaneal enthesophytes. No gross ankle effusion. Left foot: Bones of the midfoot are well aligned. No tarsal, metatarsal or phalangeal fracture. Suspected postoperative changes of the first MTP joint with associated moderate degenerative changes. There are minimal degenerative changes of scattered IP joints. Similar chronic appearance of resected distal shaft of the proximal second phalanx. Moderate sized posterior and plantar calcaneal enthesophytes. XR/XR sacroiliac joint min 3V IMPRESSION: -Mild to moderate degenerative changes of the lower lumbar spine without compression deformity. -Sacroiliac joints are symmetric. -Mild degenerative changes of both feet without fracture or dislocation. -Similar postsurgical changes of the left foot.
[2022-01-08 15:03] LABS: Uric Acid 5.7 mg/dL (2.4-5.7)
== END 2022-01-08 14:01 | disposition home or self-care (01) ==
LOC: HO.XRAY 14:00
PROVIDERS: PCP Internal Medicine; Visit Provider Nurse Practitioner Family
DX: M10.9 Gout, unspecified (principal); M54.50 Low back pain, unspecified; M53.3 Sacrococcygeal disorders, not elsewhere classified; M79.671 Pain in right foot; M79.672 Pain in left foot
CPT/HCPCS: 36415; 72100; 72202; 73620; 84550

== ENCOUNTER 2022-01-13 12:39 | Outpatient (REF) | payer MEDICAID, SELFPAY ==
--- NOTE | ~2022-01-13 | MM_ITS ---
EXAMINATION: MM SCREENING DIGITAL BREAST TOMOSYNTHESIS, BILATERAL CLINICAL INFORMATION: Screening. Asymptomatic. The lifetime risk of breast cancer based on the Tyrer-Cuzick Model is 7%. COMPARISON: Mammography: 01/06/2021, 01/14/2020, 01/08/2019 TECHNIQUE: Digital breast tomosynthesis is performed in both the craniocaudal and mediolateral oblique views along with computer-aided detection (CAD). Synthesized 2D images are generated from the tomosynthesis. FINDINGS: There are scattered areas of fibroglandular density (ACR BI-RADS breast composition Category b). There are no significant masses, abnormal calcifications, or other abnormalities. Parenchymal pattern is similar to prior studies. There is no developing density or architectural abnormality. The axilla and skin contours are unremarkable. No significant changes. MM/MM tomosynthesis screening BI IMPRESSION: No mammographic evidence of malignancy. ASSESSMENT: BI-RADS 1: Negative RECOMMENDATION: Routine annual mammography screening. This patient's information was entered into a reminder system with a target due date for their next mammogram.
== END 2022-01-13 12:40 | disposition home or self-care (01) ==
LOC: HO.MAMMO 12:39
PROVIDERS: PCP Internal Medicine; Visit Provider Internal Medicine
DX: Z12.31 Encounter for screening mammogram for malignant neoplasm of breast (principal)
CPT/HCPCS: 77063; 77067

== ENCOUNTER 2022-01-18 12:42 | Outpatient (REF) | payer MEDICAID, SELFPAY ==
--- NOTE | ~2022-01-18 | US_ITS ---
EXAMINATION: US RETROPERITONEAL LIMITED (RENAL ONLY) CLINICAL INFORMATION: Calculus of kidney. COMPARISON: Renal ultrasound 10/27/2021 and 01/26/2021. CT abdomen and pelvis 10/24/2021. TECHNIQUE: Real-time imaging of the kidneys. FINDINGS: RIGHT KIDNEY: 11.0 x 5.2 x 5.3 cm (SAG x AP x TRV). Right renal parenchymal cortical scarring unchanged. Renal parenchymal echogenicity is otherwise unremarkable. No focal parenchymal lesions. Pelviectasis without eldon hydronephrosis decreased from prior. A 1 cm nonobstructing lower pole renal stone increased in size from prior previously 4 mm. A 3 mm nonobstructing lower pole renal stone was not previously measured however is favored to be present and similar. LEFT KIDNEY: 12.3 x 5.6 x 5.8 cm (SAG x AP x TRV). The kidney is normal in size, contour, and echogenicity. Renal cortical thickness is normal. No renal calculi or hydronephrosis. Benign-appearing 1.8 cm renal cyst, no follow-up imaging recommended. US/US renal BI IMPRESSION: Nonobstructing right renal stones again seen with a 1 cm nonobstructing right lower pole renal stone increased in size from prior, as detailed above. Right renal pelviectasis is seen decreased from prior without eldon hydronephrosis.
== END 2022-01-18 12:43 | disposition home or self-care (01) ==
LOC: HO.US 12:42
PROVIDERS: Visit Provider Urology
DX: N20.0 Calculus of kidney (principal)
CPT/HCPCS: 76775

== ENCOUNTER → 2022-03-17 13:11 | Outpatient (BNVA) | payer MEDICAID, SELFPAY | PROVIDERS: PCP Internal Medicine; Visit Provider Urology | DX: N20.0 Calculus of kidney (principal) | CPT/HCPCS: 99212 ==

== ENCOUNTER 2022-03-23 07:44 | Emergency (ER) | payer MEDICAID, SELFPAY ==
--- NOTE | ~2022-03-23 | XR_ITS ---
EXAMINATION: XR CHEST CLINICAL INFORMATION: Cough. COMPARISON: None TECHNIQUE: 2 views of the chest were obtained. FINDINGS: The lungs are well-expanded and clear. The heart size and pulmonary vascularity is normal. No gross bony abnormality seen. There are bilateral cervical ribs. XR/XR chest 2V IMPRESSION: Unremarkable chest exam.
[2022-03-23 08:21] VITALS: BP 134/82; PULSE 130; RESP 20; TEMP 37; O2SAT 100; BMI 39.4
--- NOTE | 2022-03-23 08:21 | ED_ITS ---
HPI - URI/Sore Throat General Chief Complaint: General Medical Stated Complaint: Flu Like Symptoms Time Seen by Provider: 03/23/22 08:02 Source: patient Mode of arrival: ambulatory Limitations: no limitations History of Present Illness HPI Narrative: This is a 57 years old female with history of fibromyalgia, dear the, sleep apnea, presented to emergency room with a URI symptoms for about 3 days denies any vomiting any diarrhea MD elicited complaint: cough Onset (ago): day(s) (3) Consistency: constant Severity: moderate Description of mucous: clear Relieving factors: nothing Related Data Home Medications Medication Instructions Recorded Confirmed duloxetine 60 mg capsule,delayed 60 mg PO BID 02/19/20 03/17/22 release (Cymbalta) folic acid 1 mg tablet 1 mg PO DAILY 02/19/20 03/17/22 loratadine 10 mg tablet 10 mg PO DAILY 02/19/20 03/17/22 meclizine 12.5 mg tablet 12.5 mg PO TID PRN Dizziness 02/19/20 03/17/22 topiramate 50 mg tablet 50 mg PO BID 01/09/21 03/17/22 hydrochlorothiazide 12.5 mg tablet 12.5 mg PO DAILY 07/15/21 03/17/22 sumatriptan succinate 25 mg tablet 5 mg PO ONCE PRN Migraine Headache 07/15/21 03/17/22 buspirone 5 mg tablet 1 tab PO DAILY 10/24/21 03/17/22 clonazepam 0.5 mg tablet 1 tab PO DAILY PRN Anxiety 10/24/21 03/17/22 cholecalciferol (vitamin D3) 25 1 cap PO DAILY 10/27/21 03/17/22 mcg (1,000 unit) capsule (Vitamin D3) fluticasone propionate 50 2 spray intranasal DAILY 10/27/21 03/17/22 mcg/actuation nasal spray,suspension sennosides 8.6 mg tablet (senna) 17.2 mg PO BID PRN 11/04/21 03/17/22 Previous Rx's Medication Instructions Recorded meloxicam 15 mg tablet 15 mg PO DAILY #30 tabs 02/13/21 linaclotide 290 mcg capsule 290 mcg PO DAILY #30 caps 04/10/21 (Linzess) magnesium oxide 400 mg (241.3 mg 400 mg PO BID #60 tabs 04/10/21 magnesium) tablet lansoprazole 30 mg capsule,delayed 30 mg PO DAILY #30 caps 07/31/21 release tizanidine 4 mg tablet 4 mg PO BID PRN muscle spasticity 08/26/21 30 days #60 tabs phenazopyridine 100 mg tablet 100 mg PO TID PRN spasm 4 days #12 10/27/21 (Pyridium) tabs metoclopramide HCl 5 mg tablet 5 mg PO .TIDAC #90 tabs 12/01/21 allopurinol 100 mg tablet 100 mg PO DAILY #90 tabs 01/27/22 tramadol 50 mg tablet 50 mg PO Q6H PRN pain #120 tabs 01/27/22 pyridoxine (vitamin B6) 100 mg 100 mg PO DAILY 90 days #90 tabs 03/17/22 tablet Allergies Allergy/AdvReac Type Severity Reaction Status Date / Time cephalexin [From KEFLEX] Allergy Intermediate RASH Verified 03/17/22 13:27 diazepam [From VALIUM] Allergy Intermediate Anxiety Verified 03/17/22 13:27 Penicillins Allergy Intermediate RASH Verified 03/17/22 13:27 Jakob Rosenthal Allergy Intermediate rash Uncoded 01/07/22 15:42 Review of Systems Constitutional: Constitutional: Reports as per HPI Cardiovascular: Cardiovascular: Reports no additional cardiovascular complaints Gastrointestinal: Gastrointestinal: Reports no additional gastrointestinal complaints [facility] Past Medical History Medical History Arthritis of left acromioclavicular joint Bursitis of left shoulder Class 2 obesity Fibromyalgia GERD (gastroesophageal reflux disease) Gout, arthritis History of depression HTN (hypertension) Osteoarthritis Renal calculi Renal colic Rotator cuff tendonitis Surgical History H/O lithotripsy History of endometrial ablation History of esophagogastroduodenoscopy (EGD) Hx of colonoscopy Hx of cystoscopy Family History Family History Father Diabetes mellitus Hypercholesteremia Heart attack HTN (hypertension) Mother Diabetes mellitus HTN (hypertension) Heart attack Hypercholesteremia Cardiovascular disease Brother Liver cancer Brother Pancreatic cancer Brother Lymphoma Sister Cervical cancer Sister Cirrhosis of liver Family/Other Cancer Family/Other Ovarian cancer Social History Social History Household Members: Family Alcohol intake: never Patient Tobacco Use Status: Former Tobacco user Quit Date: 1990 Tobacco use type: Cigarette Years Smoked: 25 +/- Second Hand Smoke Exposure: No Advance Directives: No Current occupational status: disabled Current occupation: rt handed Physical Exam Vital Signs: Vital Signs: Last Vital Signs Temp 98 F 03/23/22 09:49 Pulse 117 H 03/23/22 09:49 Resp 20 03/23/22 09:49 BP 114/76 03/23/22 09:49 Pulse Ox 98 03/23/22 09:49 O2 Del Method 03/23/22 09:49 BMI result Body Mass Index 39.4 Const: General: cooperative, comfortable and no acute distress Nutritional Appearance: average body habitus Orientation/consciousness: patient oriented x3 HEENT: Head: Yes normal to inspection Ears: hearing grossly normal bilaterally General nose exam: Normal external nose present Face and sinus: Yes normal facial exam Mouth: Normal oral and palatal mucosa present Throat: Yes posterior oropharynx normal Neck: Neck: Yes normal visual inspection Thyroid: Thyroid normal Chest: Chest palpation & inspection: normal inspection of the chest Resp: Effort & Inspection: normal respiratory effort Auscultation: clear to auscultation bilaterally Cardio: Jugular venous distension: no JVD Rate: regular rate Rhythm: regular rhythm GI: Inspection: Yes normal to inspection Palpation (GI): Soft to palpation, not firm, nontender and no guarding Auscultation: normal bowel sounds Skin: General skin exam: no rashes or lesions noted Trauma: no lacerations or abrasions Wounds: no wounds Hair: normal Neuro: General: patient oriented x3 Extrem: General: Yes normal to inspection and Yes full ROM Course Reevaluation(s) Reevaluation #1: FEELS BETTER POSITIVE FLU CXR NEGATIVE MDM - URI/Sore Throat Medical Records Medical records narrative: She is nontoxic-appearing oxygenating well, she has normal chest x-ray, she is positive for the flu I think we could discharge her home Lab Data Labs: Lab Results 03/23/22 Range/Units 08:27 Influenza Type A (PCR) POSITIVE A (Negative) Influenza Type B (PCR) NEGATIVE (Negative) RSV RNA Qual (PCR) NEGATIVE (Negative) SARS-CoV-2 RNA (RT-PCR) NEGATIVE (Negative) Imaging Data Chest x-ray: Radiologist's impression: EXAMINATION: XR CHEST CLINICAL INFORMATION: Cough. COMPARISON: None TECHNIQUE: 2 views of the chest were obtained. FINDINGS: The lungs are well-expanded and clear. The heart size and pulmonary vascularity is normal. No gross bony abnormality seen. There are bilateral cervical ribs. XR/XR chest 2V IMPRESSION: Unremarkable chest exam. Dictated By: Madan Wise MD Signed By: <Electronically signed by Madan Wise MD in OV> 03/23/22 0907 Discharge Plan Discharge Clinical Impression: Influenza Patient Disposition: Home, Self-Care Prescriptions: No Action meloxicam 15 mg tablet 15 mg PO DAILY Qty: 30 3RF lansoprazole 30 mg capsule,delayed release(DR/EC) 30 mg PO DAILY Qty: 30 2RF tizanidine 4 mg tablet 4 mg PO BID PRN (Reason: muscle spasticity) 30 Days Qty: 60 6RF metoclopramide HCl 5 mg tablet 5 mg PO .TIDAC Qty: 90 6RF allopurinol 100 mg tablet 100 mg PO DAILY Qty: 90 3RF tramadol 50 mg tablet 50 mg PO Q6H PRN (Reason: pain) Qty: 120 3RF meclizine 12.5 mg Tablet 12.5 mg PO TID PRN (Reason: Dizziness) folic acid 1 mg Tablet 1 mg PO DAILY loratadine 10 mg Tablet 10 mg PO DAILY duloxetine [Cymbalta] 60 mg Capsule,Delayed Release(Dr/Ec) 60 mg PO BID buspirone 5 mg tablet 1 tab PO DAILY clonazepam 0.5 mg tablet 1 tab PO DAILY PRN (Reason: Anxiety) cholecalciferol (vitamin D3) [Vitamin D3] 25 mcg (1,000 unit) capsule 1 cap PO DAILY fluticasone propionate 50 mcg/actuation [place],Suspension 2 spray INTRANASAL DAILY Rx Instructions: administer into each nostril phenazopyridine [Pyridium] 100 mg tablet 100 mg PO TID PRN (Reason: spasm) 4 Days Qty: 12 0RF topiramate 50 mg tablet 50 mg PO BID Linzess 290 mcg capsule 290 mcg PO DAILY Qty: 30 6RF magnesium oxide 400 mg (241.3 mg magnesium) tablet 400 mg PO BID Qty: 60 6RF pyridoxine (vitamin B6) 100 mg tablet 100 mg PO DAILY 90 Days Qty: 90 1RF sennosides [senna] 8.6 mg tablet 17.2 mg PO BID PRN sumatriptan succinate 25 mg tablet 5 mg PO ONCE PRN (Reason: Migraine Headache) hydrochlorothiazide 12.5 mg tablet 12.5 mg PO DAILY Referrals: Jayda Patiño MD [Primary Care Provider] - 2 days Interventions: ED Discharge Assessment Last Done: 03/23/22 09:48 Discharge Date/Time: 03/23/22 09:56
[2022-03-23 09:29] LABS: Influenza A PCR POSITIVE (Negative); Influenza B PCR NEGATIVE (Negative); Resp Syncy Virus RNA Qual PCR NEGATIVE (Negative); SARS COV2 PCR INHOUSE NEGATIVE (Negative)
[2022-03-23 09:49] VITALS: BP 114/76; PULSE 117; RESP 20; TEMP 36.6; O2SAT 98
== END 2022-03-23 09:56 | disposition home or self-care (01) ==
PROVIDERS: Emergency Provider Emergency Medicine; PCP Internal Medicine
DX: J10.1 Influenza due to other identified influenza virus with other respiratory manifestations (principal); R05.9 Cough, unspecified; Z20.822 Contact with and (suspected) exposure to COVID-19; Z87.891 Personal history of nicotine dependence
CPT/HCPCS: 0241U; 71046; 99282; 99283

== ENCOUNTER 2022-04-06 11:26 | Outpatient (REF) | payer MEDICAID, SELFPAY ==
--- NOTE | ~2022-04-06 | XR_ITS ---
EXAMINATION: XR ABDOMEN KUB CLINICAL INDICATION: Kidney stone COMPARISON: Previous CT of the abdomen and pelvis October 2021 and renal ultrasound December 2021 TECHNIQUE: Supine of the abdomen and pelvis. FINDINGS: Evaluation for renal stone is limited due to overlying bowel gas. There is a 3 mm density projecting over the lower pole of the right kidney questionable for a stone. There are small bilateral pelvic calcifications probably representing calcified phleboliths. Bowel gas pattern is normal. There are degenerative changes of the spine and hip joints. XR/XR KUB IMPRESSION: Limited evaluation for renal stone due to overlying bowel gas. Probable small 3 mm right lower pole renal stone.
== END 2022-04-06 11:27 | disposition home or self-care (01) ==
LOC: HO.XRAY 11:26
PROVIDERS: Visit Provider Urology
DX: N20.0 Calculus of kidney (principal)
CPT/HCPCS: 74018

== ENCOUNTER → 2022-04-23 13:16 | Outpatient (BNVA) | payer MEDICAID, SELFPAY | PROVIDERS: PCP Internal Medicine; Visit Provider Urology | DX: N20.0 Calculus of kidney (principal) | CPT/HCPCS: 99212 ==

== ENCOUNTER → 2022-05-04 12:50 | Outpatient (BNVA) | payer MEDICAID, SELFPAY | PROVIDERS: PCP Internal Medicine; Referring Provider Internal Medicine; Visit Provider Nurse Practitioner Family | DX: R00.2 Palpitations (principal) | CPT/HCPCS: 99212 ==

== ENCOUNTER 2022-05-31 12:48 | Outpatient (REF) | payer MEDICAID, SELFPAY | END 2022-05-31 12:49 | disposition home or self-care (01) | LOC: HO.LAB 12:48 | PROVIDERS: PCP Internal Medicine; Visit Provider Nurse Practitioner Family | DX: Z13.89 Encounter for screening for other disorder (principal) ==

== ENCOUNTER 2022-06-01 11:25 | Outpatient (REF) | payer MEDICAID, SELFPAY ==
[2022-06-01 13:42] LABS: Amphetamine Screen Urine Not Detected (Not Detect); Barbiturates, Urine Not Detected (Not Detect); Benzodiazepines Screen Urine Not Detected (Not Detect); Cannabinoid Screen Urine Not Detected (Not Detect); Cocaine Screen Urine Not Detected (Not Detect); Fentanyl, urine Not Detected (Not Detect); Opiate Screen Urine Not Detected (Not Detect); Phencyclidine Screen Urine Not Detected (Not Detect)
[2022-06-15 09:38] LABS: Tramadol, Ur 3579
[2022-06-15 09:39] LABS: Desmethyltramadol, Ur 2616
== END 2022-06-01 11:26 | disposition home or self-care (01) ==
LOC: HO.LAB 11:25
PROVIDERS: PCP Internal Medicine; Visit Provider Nurse Practitioner Family
DX: Z51.81 Encounter for therapeutic drug level monitoring (principal)
CPT/HCPCS: 80307; 80373

== ENCOUNTER → 2022-06-16 13:43 | Outpatient (BNVA) | payer MEDICAID, SELFPAY | PROVIDERS: PCP Internal Medicine; Visit Provider Nurse Practitioner | DX: K59.04 Chronic idiopathic constipation (principal); K21.9 Gastro-esophageal reflux disease without esophagitis; K31.84 Gastroparesis; Z76.0 Encounter for issue of repeat prescription | CPT/HCPCS: 99212 ==

== ENCOUNTER → 2022-07-07 13:06 | Outpatient (BNVA) | payer MEDICAID, SELFPAY | PROVIDERS: PCP Internal Medicine; Visit Provider Nurse Practitioner Family | DX: M17.0 Bilateral primary osteoarthritis of knee (principal); M75.41 Impingement syndrome of right shoulder; M75.42 Impingement syndrome of left shoulder; M79.671 Pain in right foot; M79.672 Pain in left foot; M47.816 Spondylosis without myelopathy or radiculopathy, lumbar region | CPT/HCPCS: 99212 ==

== ENCOUNTER 2022-12-14 12:41 | Outpatient (REF) | payer MEDICAID, SELFPAY ==
[2022-12-14 13:25] LABS: MANUAL DIFF FLAG NO
[2022-12-14 14:09] LABS: Basophils Absolute Auto 0.1 X10*3/uL (0.0-0.2); Basophils Percent Auto 0.6 % (0-2); Eosinophils Absolute Auto 0.1 X10*3/uL (0.0-0.4); Eosinophils Percent Auto 1.7 % (0-4); Hematocrit 45.8 % (37.0-47.0); Hemoglobin 15.2 g/dl (12.0-16.0); Imm Gran Abs Auto 0.01 X10*3/uL (0.00-0.03); Imm Gran Pct Auto 0.1 % (0.0-0.4); Lymphocytes Absolute Auto 2.7 X10*3/uL (1.2-4.9); Lymphocytes Percent Auto 35.2 % (20-40); Mean Corpuscular HGB Conc 33.2 g/dl (31.0-35.0); Mean Corpuscular Hemoglobin 30.6 pg (27.0-33.0); Mean Corpuscular Volume 92.2 fL (80.0-98.0); Mean Platelet Volume 12.6 fL (9.4-12.3); Monocytes Absolute Auto 0.6 X10*3/uL (0.1-1.2); Monocytes Percent Auto 7.6 % (2-11); Neutrophils Absolute Auto 4.3 x10*3/uL (2.0-8.3); Neutrophils Percent Auto 54.8 % (45-73); Platelet Count 221 X10*3/uL (160-400); Red Blood Count 4.97 X10*6/uL (4.20-5.50); Red Cell Distribution Width 13.6 % (11.0-16.0); White Blood Count 7.8 X10*3/uL (4.8-10.8)
[2022-12-14 14:56] LABS: Alanine Aminotransferase 58 U/L (0-31); Albumin Level 4.2 g/dL (3.5-5.0); Alkaline Phosphatase 91 U/L (39-117); Anion Gap 12 (12-20); Aspartate Amino Transferase 43 U/L (5-31); Bilirubin Total 0.5 mg/dL (0.0-1.0); Blood Urea Nitrogen 10 mg/dL (9-16); Calcium 9.6 mg/dL (8.4-10.2); Carbon Dioxide 27 mmol/L (22-29); Chloride 108 mmol/L (96-108); Estimated Glomerular Filt Rate > 60; Glucose Random 101 mg/dL (60-115); Potassium 4.7 mmol/L (3.3-5.1); Sodium 142 mmol/L (135-145)
== END 2022-12-14 12:42 | disposition home or self-care (01) ==
LOC: HO.LAB 12:41
PROVIDERS: PCP Internal Medicine; Visit Provider Nurse Practitioner
DX: Z01.818 Encounter for other preprocedural examination (principal); K59.04 Chronic idiopathic constipation; K21.9 Gastro-esophageal reflux disease without esophagitis; K31.84 Gastroparesis
CPT/HCPCS: 36415; 80053; 85025; 99214

== ENCOUNTER 2022-12-14 12:41 | Outpatient (AMB) | payer MEDICAID, SELFPAY ==
[2022-12-14 12:43] VITALS: BP 129/84; BMI 39.4
--- NOTE | 2022-12-14 12:43 | MHC.OFFVIS ---
Intake Vital Signs 12/14/22 12:43 Height 5 ft 4 in Weight 229 lb 4.492 oz BMI 39.4 BP 129/84 Blood Pressure Location Rt brachial Position Sitting Intake Visit Reasons: 6 month fu Intake Note: Milady presents in office visit today in follow up of CIC, GERD PT CC: Patient reports occasional nausea and would like to have zofran refill. Denies any new GI concerns. 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 She continues on her reglan and Linzess, and has senna and magnesium as a back up.? She would like 90 day supply for her medications as this is less expensive her. She continues on her lansoprazole with good control of her GERD. Return office visit in 6 months (2) GERD (gastroesophageal reflux disease): ?Code(s): K21.9 - Gastro-esophageal reflux disease without esophagitis (3) Gastroparesis: ?Code(s): K31.84 - Gastroparesis ? ? ? Medications: Changed From lansoprazole 30 mg? PO DAILY 30 caps 0RF K21.9 - Gastro-eso phageal reflux dis ease without esoph agitis ? To lansoprazole 30 mg? PO DAILY 90 days 90 caps 1RF E K21.9 - Gastro-eso phageal reflux dis ease without esoph agitis ? From linaclotide 290 mcg? PO DAILY 30 caps 0RF K59.04 - Chronic i diopathic constipa tion ? To linaclotide (Linze ss) 290 mcg? PO DAILY 90 days 90 caps 1R F K59.04 - Chronic i diopathic constipa tion ? From magnesium oxide 400 mg? PO BID 60 tabs 0RF K59.04 - Chronic i diopathic constipa tion ? To magnesium oxide 400 mg? PO BID 90 days 180 tabs 0RF E K59.04 - Chronic i diopathic constipa tion ? From metoclopramide HCl 5 mg? PO .TIDAC 90 tabs 0RF K31.84 - Gastropar esis ? To metoclopramide HCl 5 mg? PO .TIDAC 90 days 270 tabs 1RF K31.84 - Gastropar esis ? From sennosides 17.2 mg (2 x 8.6 m g) PO BID PRN 120 tabs 6RF for const ipation ? ? To sennosides (senna) 17.2 mg (2 x 8.6 m g) PO BID 90 days PRN 120 tabs 1RF f or constipation ? ? COLONOSCOPY-2013 DESCRIPTION OF PROCEDURE:The digital rectal exam revealed no specific lesion. The video colonoscope was introduced without difficulty. It was navigated into the rectosigmoid/sigmoid. There was retained turbid yellow stool effluent with a moderate amount of fluffy fibrous material. This was scattered throughout the colon. There was redundancy in the sigmoid and descending colon, necessitating the patient ultimately be placed on herback to navigate through the splenic flexure, transverse colon, hepatic flexure,ascending colon, down into the cecal cap. Appendiceal orifice was seen. Ileocecalvalve was seen. The only mucosal changes noted was the presence of mild melanosiscoli. The scope entered the cecum. The appendiceal orifice was seen. Ileocecal valvewas well seen. The scope was withdrawn and slow rotational views were had. Areaswere flushed and suctioned. No polyps were appreciated. Anorectal verge was clear. GENERAL IMPRESSION:Melanosis coli, otherwise normal colon. COMMENT:The colon was very redundant. This patient would have to be done with MAC anesthesia again due to the tortuosity. Earlier repeat asymptomatic screening can be considered due to the marginal prep. CURRENT RECOMMENDATIONS:For asymptomatic, repeat screening would be 10 years. Kay Mills M.D. cc:Radha Turner NP Report #: [id number]: Signed Electronically SignedDict: 05/10/13/ Trans: 05/10/13 /NTS TODAY'S VISIT Dutch #Susie Mckeon She is doing well! She wants to make sure she has ?the nausea med? and my staff thought she min Zofran but she really was referring to her Reglan which she is taking 3 times a day. I inquired if she was having any breakthrough nausea because if she was, at the 5 mg dose, we certainly could extend to additional doses but she denies this. Her constipation is well controlled on her Linzess and her senna. She continues on her lansoprazole good control of her heartburn. Her last colonoscopy was in 2013 so she will be due next year for repeat. This was presented to her and she is agreeable to getting it scheduled since were running about 8 months out. There are no prior problems with anesthesia or sedation. She denies any cardiac or respiratory problems. There are no infectious disease problems. There is no known family history of colon cancer or polyps. I will see her in 6 months for her regular chronic care and of course after the colonoscopy whenever that is scheduled. [facility] Medical History Arthritis of left acromioclavicular joint Bursitis of left shoulder Class 2 obesity Fibromyalgia GERD (gastroesophageal reflux disease) Gout, arthritis History of depression HTN (hypertension) Osteoarthritis Renal calculi Renal colic Rotator cuff tendonitis Surgical History H/O lithotripsy History of endometrial ablation History of esophagogastroduodenoscopy (EGD) Hx of colonoscopy Hx of cystoscopy Family History Father Diabetes mellitus Hypercholesteremia Heart attack HTN (hypertension) Mother Diabetes mellitus HTN (hypertension) Heart attack Hypercholesteremia Cardiovascular disease Brother Liver cancer Brother Pancreatic cancer Brother Lymphoma Sister Cervical cancer Sister Cirrhosis of liver Family/Other Cancer Family/Other Ovarian cancer Social History Household Members: Family Alcohol intake: never Patient Tobacco Use Status: Former Tobacco user Quit Date: 1990 Tobacco use type: Cigarette Years Smoked: 25 +/- Second Hand Smoke Exposure: No Current occupational status: disabled Current occupation: rt handed Review of Systems Const Denies fatigue, Denies fever(s), Denies night sweats, Denies poor appetite and Denies weight loss ENT Reports Normal hearing present, Denies dental pain, Denies dysphagia, Denies hearing loss, Denies mouth pain, Denies odynophagia, Denies throat swelling, Denies tongue swelling and Reports other (Dentition adequate) Card Reports no additional complaints Resp Reports no additional complaints GI Denies abdominal pain, Denies melena, Denies bloating, Denies hematochezia, Reports constipation, Denies GI cramping, Denies dysphagia, Denies excessive flatus, Reports early satiety, Reports heartburn, Denies diarrhea, Denies nausea, Denies odynophagia, Denies vomiting and Denies hematemesis Skin/Breast Denies pruritus, Denies lesions, Denies rash and Denies jaundice Neuro Reports Normal hearing present and Denies Abnormal speech present Endo Denies fatigue Aller/Immun Denies throat swelling and Denies tongue swelling Physical Exam Vital Signs: Last Vital Signs BP 129/84 12/14/22 12:43 BMI result Body Mass Index 39.4 Const General: cooperative, no acute distress, well developed and well groomed Nutritional Appearance: well nourished and obese morbidly obese Orientation/consciousness: oriented to person, oriented to place and oriented to time Limitations: language barrier HEENT Head: Yes normocephalic and Yes atraumatic Eyes General: appearance normal, both eyes and all related structures Pupils: Equal, round and reactive pupils present Neck Neck: Yes normal visual inspection and Yes no lymphadenopathy Thyroid: Thyroid normal Resp Effort & Inspection: normal respiratory effort and able to speak in complete sentences Auscultation: clear to auscultation bilaterally Cardio Rate: regular rate Rhythm: regular rhythm Heart sounds: Normal, physiologic split S2 sound present Peripheral pulses: radial pulses present and posterior tibial pulses present GI Inspection: No distended, No Abdominal panniculus present and Yes obesity Palpation (GI): Soft to palpation, nontender, no guarding, not rigid and No hepatosplenomegaly present Percussion: Yes normal to percussion Auscultation: normal bowel sounds Rectal Exam - Female: deferred Skin General skin exam: no rashes or lesions noted, turgor normal, skin not dry, no jaundice, No spider nevi and no striae Rashes: no rashes Nails: normal Neuro General: oriented to person, oriented to place and oriented to time Cranial nerves: Yes Equal, round and reactive pupils present and Yes Normal hearing present Speech: No Abnormal speech present Extrem General: Yes normal to inspection, No clubbing, No cyanosis and No edema Psych Appearance: grossly normal and well kempt Mental Status: mental status grossly normal Speech and movement: Normal speech and movement present Affect: normal affect Attitude: cooperative Thought process: Normal thought process present and not confabulating Thought content: Normal thought content present Insight: Fair insight present (Psych) Judgement: Fair judgement present (Psych) Assessment & Plan Assessment & Plan (1) Chronic idiopathic constipation: Code(s): K59.04 - Chronic idiopathic constipation Plan: Dutch #Susie Live She is doing well! She wants to make sure she has ?the nausea med? and my staff thought she min Zofran but she really was referring to her Reglan which she is taking 3 times a day. I inquired if she was having any breakthrough nausea because if she was, at the 5 mg dose, we certainly could extend to additional doses but she denies this. Her constipation is well controlled on her Linzess and her senna. She continues on her lansoprazole good control of her heartburn. Her last colonoscopy was in 2013 so she will be due next year for repeat. This was presented to her and she is agreeable to getting it scheduled since were running about 8 months out. There are no prior problems with anesthesia or sedation. She denies any cardiac or respiratory problems. There are no infectious disease problems. There is no known family history of colon cancer or polyps. I will see her in 6 months for her regular chronic care and of course after the colonoscopy whenever that is scheduled. (2) GERD (gastroesophageal reflux disease): Code(s): K21.9 - Gastro-esophageal reflux disease without esophagitis (3) Gastroparesis: Code(s): K31.84 - Gastroparesis (4) Pre-op examination: Code(s): Z01.818 - Encounter for other preprocedural examination Orders: Orders Comprehensive Met. Panel Today Z818 - Encounter for other preprocedural examination Colonoscopy - GI Use Only Today Z818 - Encounter for other preprocedural examination Complete Blood Count Auto Diff Today Z81 - Encounter for other preprocedural examination Medications: New peg 3350-electrolytes 236-22.74-6.74 -5.86 gram (Golytely) until fecal effluent is clear; do not exceed a total volume of 2,000 mL 240 mL PO Q10M 1 day 4,000 mL 0RF Z12.11 - Encounter for screening for malignant neoplasm of colon Coding Level of Care Code Est Pt Level 4 (99884) Diagnoses Chronic idiopathic constipation K59.04 GERD (gastroesophageal reflux disease) K21.9 Gastroparesis K31.84 Pre-op examination Z01
== END 2022-12-14 14:50 | disposition home or self-care (01) ==
PROVIDERS: PCP Internal Medicine; Visit Provider Nurse Practitioner
DX: K59.04 Chronic idiopathic constipation (principal); K21.9 Gastro-esophageal reflux disease without esophagitis; K31.84 Gastroparesis; Z01.818 Encounter for other preprocedural examination
CPT/HCPCS: 99214

== ENCOUNTER 2023-01-03 13:18 | Outpatient (AMB) | payer MEDICAID, SELFPAY ==
--- NOTE | 2023-01-03 13:19 | MHC.OFFVIS ---
Intake Intake Visit Reasons: Calculus of kidney- follow up Intake Note: Patient presents today for a follow-up on Calculus of kidney: Meds- None Allergies to Antibiotic- Cephalexin & Penicillin Blood Thinner- None News Video Editor Required: No Allergies cephalexin [From KEFLEX] Allergy (Intermediate, Verified 12/14/22 12:45) RASH diazepam [From VALIUM] Allergy (Intermediate, Verified 12/14/22 12:45) Anxiety Penicillins Allergy (Intermediate, Verified 12/14/22 12:45) RASH Jakob Rosenthal Allergy (Intermediate, Uncoded 07/07/22 13:40) rash Medication List - Last Reconciled 01/03/23 by Fly Fiore MD allopurinol 100 mg PO DAILY 90 days buspirone 5 mg PO DAILY cholecalciferol (vitamin D3) (Vitamin D3) 1 cap PO DAILY clonazepam 1 tab PO DAILY PRN doxepin 10 mg PO BEDTIME duloxetine (Cymbalta) 60 mg PO BID fluticasone propionate 50 mcg/actuation 2 sprays intranasal DAILY folic acid 1 mg PO DAILY hydrochlorothiazide 12.5 mg PO DAILY lansoprazole 30 mg PO DAILY 90 days linaclotide (Linzess) 290 mcg PO DAILY 90 days loratadine 10 mg PO DAILY magnesium oxide 400 mg PO BID meclizine 12.5 mg PO TID PRN meloxicam 15 mg PO DAILY metoclopramide HCl 5 mg PO .TIDAC 90 days peg 3350-electrolytes 236-22.74-6.74 -5.86 gram (Golytely) 240 mL PO Q10M 1 day pravastatin 40 mg PO DAILY pyridoxine (vitamin B6) 100 mg PO DAILY sennosides (senna) 17.2 mg (2 x 8.6 mg) PO BID PRN sumatriptan succinate 5 mg PO ONCE PRN topiramate 50 mg PO BID tramadol 50 mg PO Q6H PRN HPI HPI Comments History of Present Illness Details Milady is a 57-year-old female who presents today to the office for a follow-up. 01/03/2023? She is followed today for calculus of the kidney. She was last seen by me in the office, 03/2022-I reviewed the US of the abdomen/pelvis results from 01/18/2022 revealed nonobstructing right renal stones again seen with a 1 cm nonobstructing right lower pole renal stone increased in size from prior, as detailed above. Right renal pelviectasis is seen decreased from prior without eldon hydronephrosis. At that time discussed to monitor kidney stones. Instructed on importance of fluid intake, Low oxalate diet, low sodium diet. Review of chart: Imagings: renal sono, 01/18/22- multiple right kidney stones the largest 1 cm stone, KUB - 04/06/22-Probable small 3 mm right lower pole renal stone. Labs: 24 hr urine Total volume 1.65 L, Calcium 108 mg; Oxalate 44 mg, Sodium 123, Citrate 900 mg. She has been taking vitamin B6 and allopurinol 100 mg. She is requesting the vitamin B6, and allopurinol refills today in the office. She denies any urinary symptoms at this time. Plan: Will check a CAT scan of the abdomen/pelvis stone protocol. to reassess stone burden, and will consider treatment options including ESWL pending results. Continue vitamin b6. Continue allopurinol. COUNT INCLUDES THE [facility] Medical History History of depression HTN (hypertension) Bursitis of left shoulder Arthritis of left acromioclavicular joint Gout, arthritis Renal calculi Rotator cuff tendonitis Class 2 obesity GERD (gastroesophageal reflux disease) Renal colic Fibromyalgia Osteoarthritis Surgical History History of endometrial ablation Hx of cystoscopy H/O lithotripsy History of esophagogastroduodenoscopy (EGD) Hx of colonoscopy Family History Father Diabetes mellitus Hypercholesteremia Heart attack HTN (hypertension) Mother Diabetes mellitus HTN (hypertension) Heart attack Hypercholesteremia Cardiovascular disease Brother Liver cancer Brother Pancreatic cancer Brother Lymphoma Sister Cervical cancer Sister Cirrhosis of liver Family/Other Cancer Family/Other Ovarian cancer Social History Household Members: Family Alcohol intake: never Patient Tobacco Use Status: Former Tobacco user Quit Date: 1990 Tobacco use type: Cigarette Years Smoked: 25 +/- Second Hand Smoke Exposure: No Current occupational status: disabled Current occupation: rt handed Review of Systems Const All systems reviewed & are unremarkable except as noted in HPI and below Reports no additional complaints Eyes Reports no additional complaints ENT Reports no additional complaints Card Denies dyspnea Resp Denies cough and Denies dyspnea GI Reports no additional complaints Reports no additional complaints Musc Reports no additional complaints Skin/Breast Denies rash and Denies unusual bruising Neuro Reports no additional complaints Psych Reports no additional complaints Endo Reports no additional complaints James/Lymph Reports no additional complaints Aller/Immun Reports no additional complaints Results Reviewed Results Reviewed: Date of Service: 01/18/22 EXAMINATION: US RETROPERITONEAL LIMITED (RENAL ONLY) CLINICAL INFORMATION: Calculus of kidney. COMPARISON: Renal ultrasound 10/27/2021 and 01/26/2021. CT abdomen and pelvis 10/24/2021. FINDINGS: RIGHT KIDNEY: 11.0 x 5.2 x 5.3 cm (SAG x AP x TRV). Right renal parenchymal cortical scarring unchanged. Renal parenchymal echogenicity is otherwise unremarkable. No focal parenchymal lesions. Pelviectasis without eldon hydronephrosis decreased from prior. A 1 cm nonobstructing lower pole renal stone increased in size from prior previously 4 mm. A 3 mm nonobstructing lower pole renal stone was not previously measured however is favored to be present and similar. LEFT KIDNEY: 12.3 x 5.6 x 5.8 cm (SAG x AP x TRV). The kidney is normal in size, contour, and echogenicity. Renal cortical thickness is normal. No renal calculi or hydronephrosis. Benign-appearing 1.8 cm renal cyst, no follow-up imaging recommended. IMPRESSION: Nonobstructing right renal stones again seen with a 1 cm nonobstructing right lower pole renal stone increased in size from prior, as detailed above. Right renal pelviectasis is seen decreased from prior without eldon hydronephrosis. Assessment & Plan Assessment & Plan (1) Bilateral kidney stones: Code(s): N20.0 - Calculus of kidney Plan Will check a CAT scan of the abdomen/pelvis without IV contrast. CAT scan reassessed stone burden, consider lithotripsy. Continue vitamin b6. Continue allopurinol. Orders: Orders CT abdomen pelvis wo IV con Today N20.0 - Calculus of kidney AMB Urinalysis Automated Today Z13.9 - Encounter for screening, unspecified Medications: New pyridoxine (vitamin B6) 100 mg PO DAILY 90 tabs 3RF Refilled allopurinol 100 mg PO DAILY 90 tabs 3RF 90 days N20.0 - Calculus of kidney, N20.1 - Calculus of ureter Patient Instructions: The patient had an opportunity to ask questions regarding treatment plan. All questions were answered. Imaging, Laboratory studies and physical exam results were discussed and reviewed in detail. No major barriers to understanding were identified. The patient expressed understanding and agreement with the above treatment plan.? ? ? The patient is aware they should contact our office by phone for worsening of their current condition or the appearance of new symptoms. Compliance is encouraged with any medications and followup testing that is ordered.? ? ? It is a privilege to be allowed the opportunity to participate in the urologic care of your patient. If you have any questions or concerns regarding treatment for the above conditions please do not hesitate to contact me. The office telephone contact is [phone].? ? ? This note is constructed in part using voice recognition software. While every effort has been made to ensure accuracy school guidance counselor errors may have been included.? ? ? Yours sincerely,? ? ? Fly Fiore MD? ? Coding Level of Care Code Est Pt Level 4 (34931) Diagnoses Bilateral kidney stones N20.0 Time Spent (min) 29
== END 2023-01-03 13:58 | disposition home or self-care (01) ==
PROVIDERS: PCP Internal Medicine; Visit Provider Urology
DX: N20.0 Calculus of kidney (principal)
CPT/HCPCS: 99214

== ENCOUNTER → 2023-01-03 13:18 | Outpatient (BNVA) | payer MEDICAID, SELFPAY | PROVIDERS: Visit Provider Urology | DX: N20.0 Calculus of kidney (principal); Z79.899 Other long term (current) drug therapy | CPT/HCPCS: 99212 ==

== ENCOUNTER 2023-01-13 13:21 | Outpatient (AMB) | payer MEDICAID, SELFPAY ==
[2023-01-13 13:33] VITALS: BP 118/74; PULSE 87; TEMP 36.6; O2SAT 96; BMI 39.0
--- NOTE | 2023-01-13 13:33 | MHC.OFFVIS ---
Intake Vital Signs 01/13/23 13:33 Height 5 ft 4 in Weight 227 lb 1.218 oz BMI 39.0 BP 118/74 Blood Pressure Location Rt brachial Position Sitting Pulse 87 Pulse Source Pulse Oximeter Temp 97.9 F Temp Source Skin Pulse Oximetry (%) 96 Intake Visit Reasons: Osteoarthritis Intake Note: Pt seen today for OA follow up. Pain all over; worse left shoulder/arm. Suppression Crew Leader Required: Yes Suppression Crew Leader Name: Joi [id number] Accompanied by: Daughter Allergies cephalexin [From KEFLEX] Allergy (Intermediate, Verified 01/13/23 13:41) RASH diazepam [From VALIUM] Allergy (Intermediate, Verified 01/13/23 13:41) Anxiety Penicillins Allergy (Intermediate, Verified 01/13/23 13:41) RASH Jakob Rosenthal Allergy (Intermediate, Uncoded 01/13/23 13:41) rash Medication List - Last Reconciled 01/13/23 by Matias Heller MD allopurinol 100 mg PO DAILY 90 days buspirone 5 mg PO DAILY cholecalciferol (vitamin D3) (Vitamin D3) 1 cap PO DAILY clonazepam 1 tab PO DAILY PRN doxepin 10 mg PO BEDTIME duloxetine (Cymbalta) 60 mg PO BID fluticasone propionate 50 mcg/actuation 2 sprays intranasal DAILY folic acid 1 mg PO DAILY hydrochlorothiazide 12.5 mg PO DAILY lansoprazole 30 mg PO DAILY 90 days linaclotide (Linzess) 290 mcg PO DAILY 90 days loratadine 10 mg PO DAILY magnesium oxide 400 mg PO BID meclizine 12.5 mg PO TID PRN meloxicam 15 mg PO DAILY metoclopramide HCl 5 mg PO .TIDAC 90 days peg 3350-electrolytes 236-22.74-6.74 -5.86 gram (Golytely) 240 mL PO Q10M 1 day pravastatin 40 mg PO DAILY pyridoxine (vitamin B6) 100 mg PO DAILY sennosides (senna) 17.2 mg (2 x 8.6 mg) PO BID PRN sumatriptan succinate 5 mg PO ONCE PRN topiramate 50 mg PO BID tramadol 50 mg PO Q6H PRN HPI HPI Comments History of Present Illness Details This is a 57-year-old female who presents for evaluation of multiple joint pain. States that she has diffuse pain everywhere. The majority of her pain today is in her left shoulder and lower back. She was evaluated by Pain Management in the past, she receives steroid injections, she did not want to pursue further injections as she stated she did not feel well after the procedures, she felt it was related to the steroids. She had surgery for her left shoulder September of 2021. Continues to take tramadol 4 times a day. [facility] Medical History History of depression HTN (hypertension) Bursitis of left shoulder Arthritis of left acromioclavicular joint Gout, arthritis Renal calculi Rotator cuff tendonitis Class 2 obesity GERD (gastroesophageal reflux disease) Renal colic Fibromyalgia Osteoarthritis Surgical History History of endometrial ablation Hx of cystoscopy H/O lithotripsy History of esophagogastroduodenoscopy (EGD) Hx of colonoscopy Family History Father Diabetes mellitus Hypercholesteremia Heart attack HTN (hypertension) Mother Diabetes mellitus HTN (hypertension) Heart attack Hypercholesteremia Cardiovascular disease Brother Liver cancer Brother Pancreatic cancer Brother Lymphoma Sister Cervical cancer Sister Cirrhosis of liver Family/Other Cancer Family/Other Ovarian cancer Social History Household Members: Family Alcohol intake: never Patient Tobacco Use Status: Former Tobacco user Quit Date: 1990 Tobacco use type: Cigarette Years Smoked: 25 +/- Second Hand Smoke Exposure: No Current occupational status: disabled Current occupation: rt handed Review of Systems [facility] [place] Reports back pain and Reports arthralgias Physical Exam Vital Signs: Last Vital Signs Temp 97.9 F 01/13/23 13:33 Pulse 87 01/13/23 13:33 BP 118/74 01/13/23 13:33 Pulse Ox 96 01/13/23 13:33 BMI result Body Mass Index 39.0 Const General: cooperative and healthy appearing Nutritional Appearance: obese morbidly obese Orientation/consciousness: patient oriented x3 Limitations: no limitations HEENT Head: Yes normocephalic and Yes atraumatic Mouth: moist mucous membranes Resp Effort & Inspection: normal respiratory effort and able to speak in complete sentences Neuro General: patient oriented x3 Extrem Other: Diffuse fibromyalgia tender points Tenderness to palpation of her left shoulder Limited range of motion of left shoulder Results Reviewed Results Reviewed: Laboratory Tests 06/01/22 06/01/22 12:00 12:00 cted Ordering Physician: Estela Vallejo NP Date of Service: 01/08/22 Procedure(s): XR sacroiliac joint min 3V Accession Number(s): [id number] cc: Estela Vallejo NP~ EXAMINATION: 1.? RADIOGRAPHS LUMBAR SPINE 2.? RADIOGRAPHS SACROILIAC JOINTS 3.? RADIOGRAPHS RIGHT FOOT 4.? RADIOGRAPHS LEFT FOOT CLINICAL INFORMATION: Low back pain. Sacrococcygeal disorders. Bilateral foot pain.? COMPARISON: CT abdomen pelvis October 24, 2021, lumbar spine x-rays January 24, 2018 and radiographs of the bilateral feet December 15, 2015 TECHNIQUE: 3 views of the lumbar spine, 3 views of the sacroiliac joints, 3 views of the right foot and 3 views of the left foot were obtained.? FINDINGS: Lumbar spine/sacroiliac joints: 5 nonrib-bearing lumbar vertebral bodies are visualized. There is minimal anterolisthesis of L4 and L5. Alignment is otherwise unremarkable. Lumbar vertebral body heights are maintained. There is moderate narrowing of the L5/S1 disc space height. Mild to moderate degenerative changes of the posterior elements of the lower lumbar spine. Anterior osteophytes noted at the L5/S1 level. Sacroiliac joints are symmetric. No gross fracture of the sacrum or coccyx. The pelvic ring is intact. Small calcifications of the pelvis are likely vascular in nature. Right foot: Bones of the midfoot are well aligned. Moderate hallux valgus deformity of the first toe with mild associated degenerative changes of the first MTP joint.? No tarsal, metatarsal or phalangeal fracture. Mild degenerative changes of scattered IP joints. Moderate sized posterior and plantar calcaneal enthesophytes. No gross ankle effusion. Left foot: Bones of the midfoot are well aligned. No tarsal, metatarsal or phalangeal fracture. Suspected postoperative changes of the first MTP joint with associated moderate degenerative changes. There are minimal degenerative changes of scattered IP joints. Similar chronic appearance of resected distal shaft of the proximal second phalanx.? Moderate sized posterior and plantar calcaneal enthesophytes. XR/XR sacroiliac joint min 3V IMPRESSION: -Mild to moderate degenerative changes of the lower lumbar spine without compression deformity. -Sacroiliac joints are symmetric. -Mild degenerative changes of both feet without fracture or dislocation. -Similar postsurgical changes of the left foot.? Assessment & Plan Assessment & Plan (1) Impingement syndrome of both shoulders: Code(s): M75.41 - Impingement syndrome of right shoulder; M75.42 - Impingement syndrome of left shoulder Plan: Patient is starting to have left shoulder pain recently. Says she had surgery for her left shoulder 09/2021. Advised patient to go back to her orthopedic surgeon. (2) Degenerative arthritis of lumbar spine: Code(s): M47.816 - Spondylosis without myelopathy or radiculopathy, lumbar region Plan: Evaluated by Pain Management in the past. She had steroid injections. Patient did not want to pursue further injections as she felt that steroids gave her side effects. Patient continues to take tramadol 4 tabs a day. Advised patient that we will attempt to lower to 3 tabs a day next visit Follow-up in 6 months Plan I spent 15 minutes reviewing patient's chart, evaluating patient, ordering diagnostic workup, counseling patient and documenting in the chart Coding Level of Care Code Est Pt Level 3 (20523) Diagnoses Impingement syndrome of both shoulders M75.41; M75.42 Degenerative arthritis of lumbar spine M47.816
== END 2023-01-13 14:04 | disposition home or self-care (01) ==
PROVIDERS: PCP Internal Medicine; Visit Provider Student in an Organized Health Care Education/Training Program
DX: M75.41 Impingement syndrome of right shoulder (principal); M75.42 Impingement syndrome of left shoulder; M47.816 Spondylosis without myelopathy or radiculopathy, lumbar region
CPT/HCPCS: 99213

== ENCOUNTER → 2023-01-13 13:21 | Outpatient (BNVA) | payer MEDICAID, SELFPAY | PROVIDERS: PCP Internal Medicine; Visit Provider Student in an Organized Health Care Education/Training Program | DX: M75.41 Impingement syndrome of right shoulder (principal); M75.42 Impingement syndrome of left shoulder; M47.816 Spondylosis without myelopathy or radiculopathy, lumbar region; Z79.891 Long term (current) use of opiate analgesic | CPT/HCPCS: 99212 ==

== ENCOUNTER 2023-01-18 12:45 | Outpatient (REF) | payer MEDICAID, SELFPAY | END 2023-01-18 12:46 | disposition home or self-care (01) | LOC: HO.MAMMO 12:45 | PROVIDERS: PCP Internal Medicine; Visit Provider Internal Medicine | DX: Z12.31 Encounter for screening mammogram for malignant neoplasm of breast (principal) | CPT/HCPCS: 77063; 77067 ==

== ENCOUNTER → 2023-01-18 13:00 | Outpatient (BNV) | payer MEDICAID, SELFPAY | PROVIDERS: PCP Internal Medicine; Visit Provider Radiology Diagnostic Radiology | DX: Z12.31 Encounter for screening mammogram for malignant neoplasm of breast (principal) | CPT/HCPCS: 77063; 77067 ==

== ENCOUNTER 2023-01-19 13:44 | Outpatient (REF) | payer MEDICAID, SELFPAY ==
--- NOTE | ~2023-01-19 | CT_ITS ---
EXAMINATION: CT ABDOMEN AND PELVIS WITHOUT CONTRAST CLINICAL INFORMATION: Renal calculus COMPARISON: Renal ultrasound from 01/08/2022 TECHNIQUE: Multidetector volumetric imaging was performed from the superior aspect of the liver through the pubic symphysis. This CT examination was performed using dose optimization techniques as appropriate, variously including the following: *Automated exposure control *Adjustment of mA and/or kV according to patient size (this includes techniques or standardized protocols for targeted exams where dose is matched to indication/reason for exam; i.e. extremities or head) *Use of iterative reconstruction technique DLP: 779 mGy-cm FINDINGS: LUNG BASES: The visualized lung bases are unremarkable. LIVER, GALLBLADDER, AND BILIARY TREE: The liver is normal in size, shape, and attenuation. No focal hepatic lesion or biliary ductal dilatation is present. Gallbladder is contracted but revealed no cholelithiasis PANCREAS: Unremarkable. SPLEEN: Unremarkable. ADRENAL GLANDS: Unremarkable. KIDNEYS AND URETERS: There are punctate calcifications seen in the collecting system of right kidney as well as nonobstructing lower pole stable since previous study 0.4 cm stone. Left kidney revealed no nephrolithiasis or hydroureteronephrosis. BLADDER: Urinary bladder is decompressed revealed no evidence of urolithiasis. GASTROINTESTINAL TRACT: The small and large bowel are unremarkable. The appendix is not seen ABDOMINAL WALL: Patient is status post repair of umbilical hernia. LYMPH NODES: Normal. VASCULAR: Unremarkable. PELVIC VISCERA: Unremarkable. OSSEOUS STRUCTURES: There are degenerative changes facet joints and degenerative changes at the level of L5-S1 CT/CT abdomen pelvis wo IV con IMPRESSION: 1. Nephrolithiasis on the right without hydroureteronephrosis. Status post repair of umbilical hernia. 2. Degenerative changes at the level of L5-S1. Fleischner guidelines were followed.
== END 2023-01-19 13:45 | disposition home or self-care (01) ==
LOC: HO.CT 13:44
PROVIDERS: PCP Internal Medicine; Visit Provider Urology
DX: N20.0 Calculus of kidney (principal)
CPT/HCPCS: 74176

== ENCOUNTER 2023-02-11 12:58 | Outpatient (AMB) | payer MEDICAID, SELFPAY ==
--- NOTE | 2023-02-11 12:58 | A.OFFVIS_ITS ---
Intake Intake Visit Reasons: 5w/CT Intake Note: Patient presents today for a follow-up on CT Scan Results, completed on 01/19/2023: Meds- Vitamin B6 Allergies to Antibiotic- Penicillin Blood Thinner- None Clerk Guide Required: No Accompanied by: Self / Same As Patient Allergies cephalexin [From KEFLEX] Allergy (Intermediate, Verified 02/11/23 12:59) RASH diazepam [From VALIUM] Allergy (Intermediate, Verified 02/11/23 12:59) Anxiety Penicillins Allergy (Intermediate, Verified 02/11/23 12:59) RASH Jakob Rosenthal Allergy (Intermediate, Uncoded 02/11/23 12:59) rash Medication List - Last Reconciled 02/11/23 by Fly Fiore MD allopurinol 100 mg PO DAILY 90 days buspirone 5 mg PO DAILY cholecalciferol (vitamin D3) (Vitamin D3) 1 cap PO DAILY clonazepam 1 tab PO DAILY PRN doxepin 10 mg PO BEDTIME duloxetine (Cymbalta) 60 mg PO BID fluticasone propionate 50 mcg/actuation 2 sprays intranasal DAILY folic acid 1 mg PO DAILY hydrochlorothiazide 12.5 mg PO DAILY lansoprazole 30 mg PO DAILY 90 days linaclotide (Linzess) 290 mcg PO DAILY 90 days loratadine 10 mg PO DAILY magnesium oxide 400 mg PO BID meclizine 12.5 mg PO TID PRN meloxicam 15 mg PO DAILY metoclopramide HCl 5 mg PO .TIDAC 90 days peg 3350-electrolytes 236-22.74-6.74 -5.86 gram (Golytely) 240 mL PO Q10M 1 day pravastatin 40 mg PO DAILY pyridoxine (vitamin B6) 100 mg PO DAILY sennosides (senna) 17.2 mg (2 x 8.6 mg) PO BID PRN sumatriptan succinate 5 mg PO ONCE PRN topiramate 50 mg PO BID tramadol 50 mg PO Q6H HPI HPI Comments History of Present Illness Details Milady is a 57-year-old female who presents today via Tele-health visit for a follow-up. 02/11/2023? She is followed today for CT scan results. She was last seen by me on 01/03/2023 for calculus of kidney.?Renal US reviewed indicated increase in size of kidney stones up to 1 cm, which was questionable and CT was ordered for better evaluation.She has been taking vitamin B6 and allopurinol 100 mg. She denies any urinary symptoms at this time. I reviewed the abdomen/pelvis CT results from 01/19/2023 revealed punctate calcifications seen in the collecting system of right kidney as well as nonobstructing lower pole stable since previous study 0.4 cm stone Review of charts: Last visit: 01/03/2023? Imagings: renal sono, 01/18/22- multiple right kidney stones the largest 1 cm stone, KUB - 04/06/22-Probable small 3 mm right lower pole renal stone. Labs: 24 hr urine Total volume? 1.65 L, Calcium? 108 mg; Oxalate? 44 mg, Sodium 123, Citrate? 900 mg.?? 02/11/2023: Plan: Continue vitamin B6 100 mg daily. Cont Allopurinol Add lemonade to the water. Encouraged to consume adequate amount of fluids. Kidney stone size stable. Continue to monitor kidney stones. Follow-up in one year. KUB prior. PFSH Medical History History of depression HTN (hypertension) Bursitis of left shoulder Arthritis of left acromioclavicular joint Gout, arthritis Renal calculi Rotator cuff tendonitis Class 2 obesity GERD (gastroesophageal reflux disease) Renal colic Fibromyalgia Osteoarthritis Surgical History History of endometrial ablation Hx of cystoscopy H/O lithotripsy History of esophagogastroduodenoscopy (EGD) Hx of colonoscopy Family History Father Diabetes mellitus Hypercholesteremia Heart attack HTN (hypertension) Mother Diabetes mellitus HTN (hypertension) Heart attack Hypercholesteremia Cardiovascular disease Brother Liver cancer Brother Pancreatic cancer Brother Lymphoma Sister Cervical cancer Sister Cirrhosis of liver Family/Other Cancer Family/Other Ovarian cancer Social History Household Members: Family Alcohol intake: never Patient Tobacco Use Status: Former Tobacco user Quit Date: 1990 Tobacco use type: Cigarette Years Smoked: 25 +/- Second Hand Smoke Exposure: No Current occupational status: disabled Current occupation: rt handed Review of Systems Const All systems reviewed & are unremarkable except as noted in HPI and below Reports no additional complaints Eyes Reports no additional complaints ENT Reports no additional complaints Card Denies dyspnea Resp Denies cough and Denies dyspnea GI Reports no additional complaints Reports no additional complaints Musc Reports no additional complaints Skin/Breast Denies rash and Denies unusual bruising Neuro Reports no additional complaints Psych Reports no additional complaints Endo Reports no additional complaints James/Lymph Reports no additional complaints Aller/Immun Reports no additional complaints Results Reviewed Results Reviewed: Date of Service: 01/19/23 EXAMINATION: CT ABDOMEN AND PELVIS WITHOUT CONTRAST?? CLINICAL INFORMATION: Renal calculus?? COMPARISON: Renal ultrasound from 01/08/2022 FINDINGS: LUNG BASES: The visualized lung bases are unremarkable.?? LIVER, GALLBLADDER, AND BILIARY TREE: The liver is normal in size, shape, and attenuation. No focal hepatic lesion or biliary ductal dilatation is present. Gallbladder is contracted but revealed no cholelithiasis?? PANCREAS: Unremarkable.?? SPLEEN: Unremarkable.?? ADRENAL GLANDS: Unremarkable.?? KIDNEYS AND URETERS: There are punctate calcifications seen in the collecting system of right kidney as well as nonobstructing lower pole stable since previous study 0.4 cm stone. Left kidney revealed no nephrolithiasis or hydroureteronephrosis.?? BLADDER: Urinary bladder is decompressed revealed no evidence of urolithiasis.?? GASTROINTESTINAL TRACT: The small and large bowel are unremarkable. The appendix is not seen ABDOMINAL WALL: Patient is status post repair of umbilical hernia.?? LYMPH NODES: Normal. VASCULAR: Unremarkable. PELVIC VISCERA: Unremarkable.?? OSSEOUS STRUCTURES: There are degenerative changes facet joints and degenerative changes at the level of L5-S1?? IMPRESSION: 1.? Nephrolithiasis on the right without hydroureteronephrosis. Status post repair of umbilical hernia. 2.? Degenerative changes at the level of L5 Assessment & Plan Assessment & Plan (1) Kidney stones: Code(s): N20.0 - Calculus of kidney Plan Continue vitamin B6 100 mg daily. Cont Allopurinol Add lemonade to the water. Encouraged to consume adequate amount of fluids. Kidney stone size stable. Continue to monitor kidney stones. Follow-up in one year. KUB prior. Orders: Orders XR KUB 11 Months N20.0 - Calculus of kidney Patient Instructions: The patient had an opportunity to ask questions regarding treatment plan. All questions were answered. Imaging, Laboratory studies and physical exam results were discussed and reviewed in detail. No major barriers to understanding were identified. The patient expressed understanding and agreement with the above treatment plan.? ? ? The patient is aware they should contact our office by phone for worsening of their current condition or the appearance of new symptoms. Compliance is encouraged with any medications and followup testing that is ordered.? ? ? It is a privilege to be allowed the opportunity to participate in the urologic care of your patient. If you have any questions or concerns regarding treatment for the above conditions please do not hesitate to contact me. The office telephone contact is [phone].? ? ? This note is constructed in part using voice recognition software. While every effort has been made to ensure accuracy invoicing specialist errors may have been included.? ? ? Yours sincerely,? ? ? Fly Fiore MD? Telehealth Telehealth Location of provider rendering services: practice address Location of patient: address on file Patient Identification confirmed using: Name, : Yes Telehealth method: voice only Patient verbally consented to treatment: Yes Patient verbally consented to billing insurance company: Yes Patient informed of any privacy concerns related to visit: Yes Minutes spent on Phone/Video with Pt.: 15 Coding Level of Care Code Tele Est Pt Level 3 (62873) Diagnoses Kidney stones N20.0
== END 2023-02-11 14:16 | disposition home or self-care (01) ==
LOC: HO.HUSH 12:58
PROVIDERS: PCP Internal Medicine; Visit Provider Urology
DX: N20.0 Calculus of kidney (principal)
CPT/HCPCS: 99213

== ENCOUNTER → 2023-02-11 12:58 | Outpatient (BNVA) | payer MEDICAID, SELFPAY | PROVIDERS: PCP Internal Medicine; Visit Provider Urology ==

== ENCOUNTER 2023-03-11 11:06 | Emergency (ER) | payer MEDICAID, SELFPAY ==
--- NOTE | ~2023-03-11 | XR_ITS ---
EXAMINATION: XR CHEST CLINICAL INFORMATION: Covid syncope COMPARISON: Chest x-ray February 2022 TECHNIQUE: 2 views of the chest were obtained. FINDINGS: No significant abnormality is noted involving the heart, lungs, mediastinum, bony thorax or soft tissues. XR/XR chest 2V IMPRESSION: Unremarkable examination.
[2023-03-11 11:25] LABS: Glucose, Whole Blood 141 mg/dL (60-115)
--- NOTE | 2023-03-11 11:25 | ECG_ITS ---
Test Reason : SYNCOPE Blood Pressure : / mmHG Vent. Rate : 070 BPM Atrial Rate : 070 BPM P-R Int : 164 ms QRS Dur : 074 ms QT Int : 396 ms P-R-T Axes : 003 -06 010 degrees QTc Int : 427 ms Normal sinus rhythm Minimal voltage criteria for LVH, may be normal variant ( R in aVL ) Nonspecific T wave abnormality Abnormal ECG When compared with ECG of 11-APR-2018 23:03, Vent. rate has decreased BY 40 BPM Referred By: Rosa Carrion Electronically Signed By:EVIN BELL MD
[2023-03-11 11:36] VITALS: BP 120/80; BP 122/86; PULSE 71; PULSE 80; RESP 22; TEMP 36.7; O2SAT 98; BMI 40.1
--- NOTE | 2023-03-11 11:49 | ED.GENADULT ---
HPI - General Adult General Chief complaint: General Medical Stated complaint: covid + syncopal episode Time Seen by Provider: 03/11/23 11:25 Source: patient, EMS, RN notes reviewed and rv repairer Mode of arrival: EMS Limitations: language barrier History of Present Illness HPI narrative: Patient is a 58-year-old Malagasy-speaking female presenting to the emergency department from [facility] clinic after episode of syncope. She reports that she went to the clinic with complaint of sore throat and fatigue which began yesterday. She also reports diarrhea yesterday. States prior to syncope today she developed nausea, vomiting and dizziness. Denies dizziness now and reports mild nausea. She denies any chest pain, palpitations, or shortness of breath. Denies fevers. Denies abdominal pain or constipation. Denies cough. MD complaint: syncope Onset (ago): minute(s) Associated symptoms: diaphoresis, nausea/vomiting and weakness Treatments prior to arrival: none Related Data Home Medications Medication Instructions Recorded Confirmed duloxetine 60 mg capsule,delayed 60 mg PO BID 02/19/20 02/11/23 release (Cymbalta) folic acid 1 mg tablet 1 mg PO DAILY 02/19/20 02/11/23 loratadine 10 mg tablet 10 mg PO DAILY 02/19/20 02/11/23 meclizine 12.5 mg tablet 12.5 mg PO TID PRN Dizziness 02/19/20 02/11/23 topiramate 50 mg tablet 50 mg PO BID 01/09/21 02/11/23 hydrochlorothiazide 12.5 mg tablet 12.5 mg PO DAILY 07/15/21 02/11/23 sumatriptan succinate 25 mg tablet 5 mg PO ONCE PRN Migraine Headache 07/15/21 02/11/23 clonazepam 0.5 mg tablet 1 tab PO DAILY PRN Anxiety 10/24/21 02/11/23 cholecalciferol (vitamin D3) 25 1 cap PO DAILY 10/27/21 02/11/23 mcg (1,000 unit) capsule (Vitamin D3) fluticasone propionate 50 2 spray intranasal DAILY 10/27/21 02/11/23 mcg/actuation nasal spray,suspension buspirone 5 mg tablet 5 mg PO DAILY 05/04/22 02/11/23 doxepin 10 mg capsule 10 mg PO BEDTIME insomnia 06/16/22 02/11/23 pravastatin 40 mg tablet 40 mg PO DAILY 12/14/22 02/11/23 Previous Rx's Medication Instructions Recorded linaclotide 290 mcg capsule 290 mcg PO DAILY 90 days #90 caps 11/22/22 (Linzess) sennosides 8.6 mg tablet (senna) 17.2 mg (2 x 8.6 mg) PO BID PRN 11/30/22 for constipation #180 tabs lansoprazole 30 mg capsule,delayed 30 mg PO DAILY 90 days #90 caps 12/13/22 release peg 3350-electrolytes 236 240 ml PO Q10M 1 day #4,000 mL 12/14/22 gram-22.74 gram-6.74 gram-5.86 gram solution (Golytely) magnesium oxide 400 mg (241.3 mg 400 mg PO BID #180 tabs 12/31/22 magnesium) tablet allopurinol 100 mg tablet 100 mg PO DAILY 90 days #90 tabs 01/03/23 pyridoxine (vitamin B6) 100 mg 100 mg PO DAILY #90 tabs 01/03/23 tablet meloxicam 15 mg tablet 15 mg PO DAILY PRN pain #30 tabs 02/25/23 metoclopramide HCl 5 mg tablet 5 mg PO TID #270 tabs 02/25/23 tramadol 50 mg tablet 50 mg PO Q6H #120 tabs 03/04/23 ondansetron 4 mg disintegrating 4 mg PO Q8H PRN nausea and 03/11/23 tablet vomiting #10 tabs Allergies Allergy/AdvReac Type Severity Reaction Status Date / Time cephalexin [From KEFLEX] Allergy Intermediate RASH Verified 02/11/23 12:59 diazepam [From VALIUM] Allergy Intermediate Anxiety Verified 02/11/23 12:59 Penicillins Allergy Intermediate RASH Verified 02/11/23 12:59 Jakob Rosenthal Allergy Intermediate rash Uncoded 02/11/23 12:59 Review of Systems Review of Systems: As per HPI. Yes all other systems are reviewed and are negative Constitutional: Constitutional: Reports as per HPI [facility] Past Medical History Medical History History of depression HTN (hypertension) Bursitis of left shoulder Arthritis of left acromioclavicular joint Gout, arthritis Renal calculi Rotator cuff tendonitis Class 2 obesity GERD (gastroesophageal reflux disease) Renal colic Fibromyalgia Osteoarthritis Surgical History History of endometrial ablation Hx of cystoscopy H/O lithotripsy History of esophagogastroduodenoscopy (EGD) Hx of colonoscopy Family History Family History Father Diabetes mellitus Hypercholesteremia Heart attack HTN (hypertension) Mother Diabetes mellitus HTN (hypertension) Heart attack Hypercholesteremia Cardiovascular disease Brother Liver cancer Brother Pancreatic cancer Brother Lymphoma Sister Cervical cancer Sister Cirrhosis of liver Family/Other Cancer Family/Other Ovarian cancer Social History Social History Household Members: Family Alcohol intake: never Patient Tobacco Use Status: Former Tobacco user Quit Date: 1990 Tobacco use type: Cigarette Years Smoked: 25 +/- Smoked in Last 30 Days: No Second Hand Smoke Exposure: No Use of substances other than those prescribed or required for medical reasons: No Advance Directives: No Advance Directives Information Provided: Yes Patient : No Current occupational status: disabled Current occupation: rt handed Physical Exam ED Vital Signs: Vital Signs - 24 hr 03/11/23 11:36 03/11/23 13:27 03/11/23 16:09 Temperature 98.1 F 98.0 F 97.6 F Pulse Rate 71 82 81 Respiratory Rate 22 H 20 19 Blood Pressure 120/80 123/81 124/95 H Pulse Oximetry 98 99 99 Oxygen Delivery Method Room Air Room Air Room Air BMI result Body Mass Index 40.1 Vital signs have been reviewed and appear to be correct. Blood pressure normal. Heart rate normal. Respiratory rate normal. Temperature normal. Oxygen saturation normal. Const General: cooperative, healthy appearing and no acute distress Orientation/consciousness: oriented to person, oriented to place, oriented to time and patient oriented x3 Limitations: no limitations HENMT Head: Yes normocephalic and Yes atraumatic Ears: external ears normal General nose exam: Normal external nose present Face and sinus: Yes face symmetric Mouth: oropharynx normal and moist mucous membranes Throat: Yes uvula midline Eyes Pupils: Equal, round and reactive pupils present Neck Neck: Yes normal visual inspection and Yes supple Resp Effort & Inspection: normal respiratory effort and able to speak in complete sentences Auscultation: clear to auscultation bilaterally Cardio Rate: regular rate Rhythm: regular rhythm Heart sounds: S1 normal heart sound present and S2 normal heart sound present GI Palpation (GI): Soft to palpation and nontender Auscultation: normoactive bowel sounds General: Yes no CVA tenderness Back/Spine/Pelvis Back: no CVA tenderness Skin General skin exam: elasticity normal and turgor normal Neuro General: oriented to person, oriented to place, oriented to time, patient oriented x3, moves all extremities, no focal motor deficits and CN's II-XI intact bilaterally Cranial nerves: Yes Equal, round and reactive pupils present Cognition (Neuro): normal cognition Extrem General: Yes full ROM, Yes no pedal edema and Yes no calf tenderness Psych Mental Status: mental status grossly normal Affect: normal affect Thought process: Normal thought process present Medications Administered Discontinued Medications Generic Name Dose Route Start Last Admin Trade Name Freq PRN Reason Stop Dose Admin Sodium Chloride 1,000 mls @ 999 mls/hr 03/11/23 12:45 03/11/23 13:50 Ns IV 03/11/23 13:45 Infused .Q1H1M BING Infusion Ondansetron HCl 4 mg 03/11/23 12:36 03/11/23 12:49 Ondansetron Hcl 4 Mg/2 Ml Vial IVPUSH 03/11/23 12:37 4 mg ONCE ONE Administration Medical Decision Making Medical Decision Making [facility] Narrative: Patient is a 58-year-old Malagasy-speaking female presenting to the emergency department from [facility] clinic after episode of syncope. On exam patient is awake, A+Ox3, VS WNL, afebrile, normal neurological exam without focal deficits, physical exam findings as above. Given reported symptoms and physical exam findings, initial differential includes ACS, anemia, dysrhythmia, electrolyte abnormality, dehydration, vasovagal. Do not suspect aortic dissection, SAH/ICH, AAA rupture. Wells score 0, PE unlikely. Labs notable for leukopenia likely due to Covid infection, no anemia, no significant electrolyte abnormalities, initial troponin 2.9, will obtain repeat in 3 hours. No delta on repeat troponin. X-ray chest notable for no evidence of pneumonia or pneumothorax. My interpretation is in agreement with the radiologist's interpretation. EKG shows normal sinus rhythm. Congolese syncope risk score -2. Low risk [place] syncope. Feel patient is stable for discharge home. Will prescribe ondansetron as needed for nausea. Instructed patient to follow up with PCP. Return precautions discussed at bedside. Patient states she feels comfortable with discharge home. Patient verbalized understanding of and agreement with plan. Wells' Criteria for Pulmonary Embolism from [employer] on 03/11/2023 All calculations should be rechecked by clinician prior to use RESULT SUMMARY: 0.0 points Low risk group: 1.3% chance of PE in an ED population. Another study assigned scores <=4 as ?PE Unlikely? and had a 3% incidence of PE. INPUTS: Clinical signs and symptoms of DVT ?> 0 = No PE is #1 diagnosis OR equally likely ?> 0 = No Heart rate > 100 ?> 0 = No Immobilization at least 3 days OR surgery in the previous 4 weeks ?> 0 = No Previous, objectively diagnosed PE or DVT ?> 0 = No Hemoptysis ?> 0 = No Malignancy w/ treatment within 6 months or palliative ?> 0 = No Congolese Syncope Risk Score from [employer] on 03/11/2023 All calculations should be rechecked by clinician prior to use RESULT SUMMARY: -2 points Cong[place]ese Syncope Risk Score Very low risk 0.7% risk of 30-day serious adverse event (, arrhythmia, [place] ? full list in Evidence) INPUTS: Predisposition to vasovagal symptoms ?> 0 = No Heart disease history ?> 0 = No sBP 180 mmHg ?> 0 = No Elevated troponin ?> 0 = No Abnormal QRS axis ?> 0 = No QRS duration >130 ms ?> 0 = No Corrected QT interval >480 ms ?> 0 = No ED diagnosis ?> -2 = Vasovagal syncope Differential Diagnosis Differential Diagnoses: The differential diagnosis associated with the presentation includes As per [facility]. Admission/Observation Consideration of admission/observation: Escalation of care including admission/observation considered Lab Data [facility] Lab Attestation statement: I reviewed the patient's lab results. As per [facility]. 03/11/23 12:17 03/11/23 12:17 Labs: Lab Results 03/11/23 03/11/23 03/11/23 Range/Units 11:19 12:17 15:48 WBC 3.6 L (4.8-10.8) X10*3/uL RBC 4.84 (4.20-5.50) X10*6/uL Hgb 15.0 (12.0-16.0) g/dl Hct 45.4 (37.0-47.0) % MCV 93.8 (80.0-98.0) fL MCH 31.0 (27.0-33.0) pg MCHC 33.0 (31.0-35.0) g/dl RDW 14.0 (11.0-16.0) % Plt Count 151 L D (160-400) X10*3/uL MPV 11.6 (9.4-12.3) fL Immature Gran % (Auto) 0.3 (0.0-0.4) % Neut % (Auto) 47.3 (45-73) % Lymph % (Auto) 39.6 (20-40) % [place] % (Auto) 12.2 H (2-11) % Eos % (Auto) 0.3 (0-4) % Baso % (Auto) 0.3 (0-2) % Lymph # (Auto) 1.4 (1.2-4.9) X10*3/uL [place] # (Auto) 0.4 (0.1-1.2) X10*3/uL Eos # (Auto) 0.0 (0.0-0.4) X10*3/uL Baso # (Auto) 0.0 (0.0-0.2) X10*3/uL Abs Immat Gran (auto) 0.01 (0.00-0.03) X10*3/uL Absolute Neuts (auto) 1.7 L (2.0-8.3) x10*3/uL Absolute Nucleated RBC 0.000 (0.0-0.012) X10*3/uL Nucleated RBC % (auto) 0.0 (0.0-0.2) /100WBC Sodium 142 (135-145) mmol/L Potassium 4.1 (3.3-5.1) mmol/L Chloride 109 H (96-108) mmol/L Carbon Dioxide 27 (22-29) mmol/L Anion Gap 10 L (12-20) BUN 7 L (9-16) mg/dL Creatinine 0.91 (0.5-1.4) mg/dL Estim Creat Clear Calc 81.0 Estimated GFR > 60 POC Glucose 141 H (60-115) mg/dL Random Glucose 145 H (60-115) mg/dL Calcium 8.4 D (8.4-10.2) mg/dL Magnesium 1.9 (1.6-2.6) mg/dL Total Bilirubin 0.3 (0.0-1.0) mg/dL Direct Bilirubin 0.1 (0.0-0.5) mg/dL AST 69 H (5-31) U/L ALT 76 H (0-31) U/L Alkaline Phosphatase 81 (39-117) U/L Troponin I High Sens 2.9 < 2.7 (<3.5-17.0) ng/L Total Protein 6.2 L (6.5-8.0) g/dL Albumin 3.7 (3.5-5.0) g/dL Independent Interpretation I performed an independent interpretation of an: EKG and Plain X-Ray Interpretation: EKG shows normal sinus rhythm, rate 70 b. p.m., normal AK and QT intervals No acute abnormalities on chest x-ray Radiology Impression Discussion of test interpretation with radiology: I have reviewed the radiologist's reading. Radiologist Impression: XR/XR chest 2V IMPRESSION: Unremarkable examination. External Record Review External record reviewed: Inpatient record, Office record and Outpatient record Prescription Management I considered prescription management with: Other Discharge Plan Discharge Clinical Impression: Syncope Patient Disposition: Home, Self-Care Instructions: Syncope (DC), COVID-19 (Coronavirus Disease 2019) (ED) Additional Instructions: You were evaluated in the emergency department after episode of fainting, also known as syncope. Your evaluation did not reveal any conditions requiring emergency medical treatment at this time. You are being prescribed ondansetron which you can use every 8 hours as needed for nausea. Be sure to drink plenty of fluids and get adequate rest. Your COVID symptoms should resolve on their own over time. Please follow-up with your primary care provider this week. Return to the emergency department if you develop chest pain, palpitations, worsening shortness of breath, dizziness, lightheadedness, additional episodes of fainting, or any other concerning symptoms. Prescriptions: New ondansetron 4 mg tablet,disintegrating 4 mg PO Q8H PRN (Reason: nausea and vomiting) Qty: 10 0RF No Action Linzess 290 mcg capsule 290 mcg PO DAILY 90 Days Qty: 90 3RF sennosides [senna] 8.6 mg tablet 17.2 mg PO BID PRN (Reason: for constipation) Qty: 180 1RF lansoprazole 30 mg capsule,delayed release(DR/EC) 30 mg PO DAILY 90 Days Qty: 90 1RF magnesium oxide 400 mg (241.3 mg magnesium) tablet 400 mg PO BID Qty: 180 0RF metoclopramide HCl 5 mg tablet 5 mg PO TID Qty: 270 1RF meloxicam 15 mg tablet 15 mg PO DAILY PRN (Reason: pain) Qty: 30 0RF tramadol 50 mg tablet 50 mg PO Q6H Qty: 120 4RF meclizine 12.5 mg Tablet 12.5 mg PO TID PRN (Reason: Dizziness) folic acid 1 mg Tablet 1 mg PO DAILY loratadine 10 mg Tablet 10 mg PO DAILY duloxetine [Cymbalta] 60 mg Capsule,Delayed Release(Dr/Ec) 60 mg PO BID clonazepam 0.5 mg tablet 1 tab PO DAILY PRN (Reason: Anxiety) buspirone 5 mg tablet 5 mg PO DAILY cholecalciferol (vitamin D3) [Vitamin D3] 25 mcg (1,000 unit) capsule 1 cap PO DAILY fluticasone propionate 50 mcg/actuation [place],Suspension 2 spray INTRANASAL DAILY Rx Instructions: administer into each nostril topiramate 50 mg tablet 50 mg PO BID allopurinol 100 mg tablet 100 mg PO DAILY 90 Days Qty: 90 3RF pyridoxine (vitamin B6) 100 mg tablet 100 mg PO DAILY Qty: 90 3RF sumatriptan succinate 25 mg tablet 5 mg PO ONCE PRN (Reason: Migraine Headache) hydrochlorothiazide 12.5 mg tablet 12.5 mg PO DAILY doxepin 10 mg capsule 10 mg PO BEDTIME pravastatin 40 mg tablet 40 mg PO DAILY peg 3350-electrolytes [Golytely] 236-22.74-6.74 -5.86 gram recon soln 240 ml PO Q10M 1 Days Qty: 4000 0RF Rx Instructions: until fecal effluent is clear; do not exceed a total volume of 2,000 mL
[2023-03-11 12:21] LABS: MANUAL DIFF FLAG NO
[2023-03-11 12:23] LABS: Basophils Percent Auto 0.3 % (0-2); Eosinophils Percent Auto 0.3 % (0-4); Hematocrit 45.4 % (37.0-47.0); Imm Gran Abs Auto 0.01 X10*3/uL (0.00-0.03); Imm Gran Pct Auto 0.3 % (0.0-0.4); Lymphocytes Absolute Auto 1.4 X10*3/uL (1.2-4.9); Lymphocytes Percent Auto 39.6 % (20-40); Mean Corpuscular Volume 93.8 fL (80.0-98.0); Mean Platelet Volume 11.6 fL (9.4-12.3); Monocytes Absolute Auto 0.4 X10*3/uL (0.1-1.2); Monocytes Percent Auto 12.2 % (2-11); Neutrophils Absolute Auto 1.7 x10*3/uL (2.0-8.3); Neutrophils Percent Auto 47.3 % (45-73); Platelet Count 151 X10*3/uL (160-400); Red Blood Count 4.84 X10*6/uL (4.20-5.50); White Blood Count 3.6 X10*3/uL (4.8-10.8)
[2023-03-11 12:35] LABS: Anion Gap 10 (12-20); Blood Urea Nitrogen 7 mg/dL (9-16); Calcium 8.4 mg/dL (8.4-10.2); Carbon Dioxide 27 mmol/L (22-29); Chloride 109 mmol/L (96-108); Estimated Glomerular Filt Rate > 60; Glucose Random 145 mg/dL (60-115); Magnesium 1.9 mg/dL (1.6-2.6); Potassium 4.1 mmol/L (3.3-5.1); Sodium 142 mmol/L (135-145)
[2023-03-11 12:42] LABS: Troponin-I High Sensitivity 2.9 ng/L (<3.5-17.0)
[2023-03-11] MEDS: ondansetron HCL 4 MG/2 ML VIAL IVPUSH (12:49)
[2023-03-11] MEDS: 0.9 % Sodium Chloride 1,000 ML 999 ML IV (12:49)
[2023-03-11 13:27] VITALS: BP 123/81; PULSE 82; RESP 20; TEMP 36.7; O2SAT 99
[2023-03-11 15:30] LABS: Alanine Aminotransferase 76 U/L (0-31); Albumin Level 3.7 g/dL (3.5-5.0); Alkaline Phosphatase 81 U/L (39-117); Aspartate Amino Transferase 69 U/L (5-31); Bilirubin Direct 0.1 mg/dL (0.0-0.5); Bilirubin Total 0.3 mg/dL (0.0-1.0); Total Protein 6.2 g/dL (6.5-8.0)
[2023-03-11 16:09] VITALS: BP 124/95; PULSE 81; RESP 19; TEMP 36.4; O2SAT 99
[2023-03-11 16:16] LABS: Troponin-I High Sensitivity < 2.7 ng/L (<3.5-17.0)
== END 2023-03-11 16:49 | disposition home or self-care (01) ==
PROVIDERS: Registered Nurse Emergency; Emergency Provider Emergency Medicine; PCP Internal Medicine
DX: U07.1 COVID-19 (principal); R11.2 Nausea with vomiting, unspecified; R55 Syncope and collapse; R94.31 Abnormal electrocardiogram [ECG] [EKG]; Z79.899 Other long term (current) drug therapy; Z87.891 Personal history of nicotine dependence
CPT/HCPCS: 36415; 71046; 80048; 80076; 82947; 83735; 84484; 85025; 93005; 96361; 96374; 99284; J2405

== ENCOUNTER 2023-03-11 17:57 | Outpatient (REF) | payer MEDICAID, SELFPAY | END 2023-03-11 17:58 | disposition home or self-care (01) | LOC: HO.LNP 17:57 | PROVIDERS: Visit Provider Emergency Medicine | DX: U07.1 COVID-19 (principal) | CPT/HCPCS: 87070 ==

== ENCOUNTER 2023-07-01 16:52 | Outpatient (REF) | payer MEDICAID, SELFPAY ==
[2023-07-02 09:48] LABS: CT PCR NOT DETECTED (Not Detect.); NG PCR NOT DETECTED (Not Detect.)
[2023-07-06 12:49] LABS: HPV mRNA E6/E7 rflx Not Detected (Not Detected)
== END 2023-07-01 16:53 | disposition home or self-care (01) ==
LOC: HO.HHCLNP 16:52
PROVIDERS: Visit Provider Registered Nurse
DX: Z01.419 Encounter for gynecological examination (general) (routine) without abnormal findings (principal)
CPT/HCPCS: 0353U; 87624; 88142

== ENCOUNTER 2023-07-26 14:31 | Outpatient (AMB) | payer MEDICAID, SELFPAY ==
[2023-07-26 14:39] VITALS: BP 124/82; PULSE 104; O2SAT 97; BMI 39.9
--- NOTE | 2023-07-26 14:39 | MHC.OFFVIS ---
Intake Vital Signs 07/26/23 14:39 Height 5 ft 4 in Weight 232 lb 5.875 oz BMI 39.9 BP 124/82 Blood Pressure Location Rt brachial Position Sitting Pulse 104 H Pulse Source Pulse Oximeter Pulse Oximetry (%) 97 Oxygen Delivery Method Room Air Intake Visit Reasons: FMS/LVM Intake Note: Patient last seen 01/13/23 presents today for follow up. Reports PCP made referral to foot doctor for bl feet pain and swelling. Advertising Solicitor Required: Yes Advertising Solicitor Name: [id number] Information Interpreted: clinical only Accompanied by: Daughter Allergies cephalexin [From KEFLEX] Allergy (Intermediate, Verified 07/26/23 14:51) RASH diazepam [From VALIUM] Allergy (Intermediate, Verified 07/26/23 14:51) Anxiety Penicillins Allergy (Intermediate, Verified 07/26/23 14:51) RASH Jakob Rosenthal Allergy (Intermediate, Uncoded 07/26/23 14:51) rash Medication List - Last Reconciled 07/26/23 by Matias Heller MD allopurinol 100 mg PO DAILY 90 days buspirone 5 mg PO DAILY cholecalciferol (vitamin D3) (Vitamin D3) 1 cap PO DAILY clonazepam 1 tab PO DAILY PRN cyclobenzaprine 5 mg PO TID doxepin 10 mg PO BEDTIME duloxetine (Cymbalta) 60 mg PO BID fluticasone propionate 50 mcg/actuation 2 sprays intranasal DAILY folic acid 1 mg PO DAILY hydrochlorothiazide 12.5 mg PO DAILY lansoprazole 30 mg PO DAILY linaclotide (Linzess) 290 mcg PO DAILY 90 days loratadine 10 mg PO DAILY magnesium oxide 400 mg PO BID meclizine 12.5 mg PO TID PRN meloxicam 15 mg PO DAILY PRN metoclopramide HCl 5 mg PO TID ondansetron 4 mg PO Q8H PRN peg 3350-electrolytes 236-22.74-6.74 -5.86 gram (Golytely) 240 mL PO Q10M 1 day pravastatin 40 mg PO DAILY pyridoxine (vitamin B6) 100 mg PO DAILY sennosides (senna) 17.2 mg (2 x 8.6 mg) PO BID PRN sumatriptan succinate 5 mg PO ONCE PRN topiramate 50 mg PO BID tramadol 50 mg PO Q8H HPI HPI Comments History of Present Illness Details 58-year-old female with fibromyalgia returns for follow-up. She states that she continues to have diffuse pain everywhere. She remains on tramadol 4 times a day. [facility] Medical History History of depression HTN (hypertension) Bursitis of left shoulder Arthritis of left acromioclavicular joint Gout, arthritis Renal calculi Rotator cuff tendonitis Class 2 obesity GERD (gastroesophageal reflux disease) Renal colic Fibromyalgia Osteoarthritis Surgical History History of endometrial ablation Hx of cystoscopy H/O lithotripsy History of esophagogastroduodenoscopy (EGD) Hx of colonoscopy Family History Father Diabetes mellitus Hypercholesteremia Heart attack HTN (hypertension) Mother Diabetes mellitus HTN (hypertension) Heart attack Hypercholesteremia Cardiovascular disease Brother Liver cancer Brother Pancreatic cancer Brother Lymphoma Sister Cervical cancer Sister Cirrhosis of liver Family/Other Cancer Family/Other Ovarian cancer Social History Household Members: Family Alcohol intake: never Patient Tobacco Use Status: Former Tobacco user Quit Date: 1990 Tobacco use type: Cigarette Years Smoked: 25 +/- Second Hand Smoke Exposure: No Current occupational status: disabled Current occupation: rt handed Review of Systems [facility] [place] Reports back pain, Reports myalgias and Reports arthralgias Physical Exam Vital Signs: Last Vital Signs Pulse 104 H 07/26/23 14:39 BP 124/82 07/26/23 14:39 Pulse Ox 97 07/26/23 14:39 Oxygen Delivery Method Room Air 07/26/23 14:39 BMI result Body Mass Index 39.9 Const General: cooperative and healthy appearing Nutritional Appearance: obese morbidly obese Orientation/consciousness: patient oriented x3 Limitations: no limitations HEENT Head: Yes normocephalic and Yes atraumatic Mouth: moist mucous membranes Resp Effort & Inspection: normal respiratory effort and able to speak in complete sentences Neuro General: patient oriented x3 Extrem Other: Diffuse fibromyalgia tender points Results Reviewed Results Reviewed: Laboratory Tests 06/01/22 06/01/22 12:00 12:00 cted Ordering Physician: Estela Vallejo NP Date of Service: 01/08/22 Procedure(s): XR sacroiliac joint min 3V Accession Number(s): [id number] cc: Estela Vallejo NP~ EXAMINATION: 1.? RADIOGRAPHS LUMBAR SPINE 2.? RADIOGRAPHS SACROILIAC JOINTS 3.? RADIOGRAPHS RIGHT FOOT 4.? RADIOGRAPHS LEFT FOOT CLINICAL INFORMATION: Low back pain. Sacrococcygeal disorders. Bilateral foot pain.? COMPARISON: CT abdomen pelvis October 24, 2021, lumbar spine x-rays January 24, 2018 and radiographs of the bilateral feet December 15, 2015 TECHNIQUE: 3 views of the lumbar spine, 3 views of the sacroiliac joints, 3 views of the right foot and 3 views of the left foot were obtained.? FINDINGS: Lumbar spine/sacroiliac joints: 5 nonrib-bearing lumbar vertebral bodies are visualized. There is minimal anterolisthesis of L4 and L5. Alignment is otherwise unremarkable. Lumbar vertebral body heights are maintained. There is moderate narrowing of the L5/S1 disc space height. Mild to moderate degenerative changes of the posterior elements of the lower lumbar spine. Anterior osteophytes noted at the L5/S1 level. Sacroiliac joints are symmetric. No gross fracture of the sacrum or coccyx. The pelvic ring is intact. Small calcifications of the pelvis are likely vascular in nature. Right foot: Bones of the midfoot are well aligned. Moderate hallux valgus deformity of the first toe with mild associated degenerative changes of the first MTP joint.? No tarsal, metatarsal or phalangeal fracture. Mild degenerative changes of scattered IP joints. Moderate sized posterior and plantar calcaneal enthesophytes. No gross ankle effusion. Left foot: Bones of the midfoot are well aligned. No tarsal, metatarsal or phalangeal fracture. Suspected postoperative changes of the first MTP joint with associated moderate degenerative changes. There are minimal degenerative changes of scattered IP joints. Similar chronic appearance of resected distal shaft of the proximal second phalanx.? Moderate sized posterior and plantar calcaneal enthesophytes. XR/XR sacroiliac joint min 3V IMPRESSION: -Mild to moderate degenerative changes of the lower lumbar spine without compression deformity. -Sacroiliac joints are symmetric. -Mild degenerative changes of both feet without fracture or dislocation. -Similar postsurgical changes of the left foot.? Assessment & Plan Assessment & Plan (1) Degenerative arthritis of lumbar spine: Code(s): M47.816 - Spondylosis without myelopathy or radiculopathy, lumbar region Qualifiers: Spinal osteoarthritis complication: other spinal osteoarthritis Qualified Code(s): M47.896 - Other spondylosis, lumbar region Plan: Evaluated by Pain Management in the past. She had steroid injections. Patient did not want to pursue further injections as she felt that steroids gave her side effects. Patient continues to take tramadol 4 tabs a day. Advised patient that we will attempt to lower to 3 tabs a day next visit Follow-up in 6 months (2) Fibromyalgia, primary: Code(s): M79.7 - Fibromyalgia Plan: On cyclobenzaprine and Cymbalta. Prescribed by other providers. She is also on tramadol 50 mg 4 times a day. Advised patient that she is on numerous medications and there is a risk of medication interaction and potential additive sedating side effects. Will lower tramadol to 3 tabs daily Follow-up in 6 months Plan I spent 15 minutes reviewing patient's chart, evaluating patient, counseling patient and documenting in the chart Medications: Changed From tramadol 50 mg PO Q6H 120 tabs 4RF M17.0 - Bilateral primary osteoarthritis of knee To tramadol 50 mg PO Q8H M17.0 - Bilateral primary osteoarthritis of knee Coding Level of Care Code Est Pt Level 3 (70811) Diagnoses Other osteoarthritis of spine, lumbar region M47.896 Spinal osteoarthritis complication: other spinal osteoarthritis Fibromyalgia, primary M79.7
== END 2023-07-26 15:09 | disposition home or self-care (01) ==
PROVIDERS: PCP Internal Medicine; Referring Provider Internal Medicine; Visit Provider Student in an Organized Health Care Education/Training Program
DX: M47.896 Other spondylosis, lumbar region (principal); M79.7 Fibromyalgia
CPT/HCPCS: 99213

== ENCOUNTER → 2023-07-26 14:31 | Outpatient (BNVA) | payer MEDICAID, SELFPAY | PROVIDERS: PCP Internal Medicine; Visit Provider Student in an Organized Health Care Education/Training Program | DX: M47.896 Other spondylosis, lumbar region (principal); M79.7 Fibromyalgia | CPT/HCPCS: 99212 ==

== ENCOUNTER 2023-08-18 08:31 | Day surgery (SDC) | payer MEDICAID, SELFPAY ==
[2023-08-16 14:13] VITALS: BMI 39.3
--- NOTE | 2023-08-17 10:22 | HO.ANESPROP2 ---
HPI - Anesthesia Eval Consult details Narrative: 58yo F for Colonoscopy PMFSH Active Problems Active Problems: All Active Problems Fibromyalgia, primary (Acute) Pre-op examination (Acute) Degenerative arthritis of lumbar spine (Acute) Medication monitoring encounter (Acute) Bilateral kidney stones (Acute) Kidney stones (Acute) TONIO (acute kidney injury) (Acute) Hydronephrosis with obstructing calculus (Acute) Chronic idiopathic constipation (Acute) GERD (gastroesophageal reflux disease) (Acute) Gastroparesis (Acute) Sleep apnea (Acute) Tendonitis of left rotator cuff (Acute) Injury of tendon of right rotator cuff (Acute) Impingement syndrome of both shoulders (Acute) Primary osteoarthritis of both knees (Acute) Paresthesia and pain of both upper extremities (Acute) Arthritis of right acromioclavicular joint (Acute) Snoring (Acute) Daytime sleepiness (Acute) Palpitations (Acute) Bursitis of left shoulder (Acute) Arthritis of left acromioclavicular joint (Acute) Gout, arthritis (Acute) Renal calculi (Acute) Past Medical History Medical History History of depression HTN (hypertension) Bursitis of left shoulder Arthritis of left acromioclavicular joint Gout, arthritis Renal calculi Rotator cuff tendonitis Class 2 obesity GERD (gastroesophageal reflux disease) Renal colic Fibromyalgia Osteoarthritis Family History Family History Father Diabetes mellitus Hypercholesteremia Heart attack HTN (hypertension) Mother Diabetes mellitus HTN (hypertension) Heart attack Hypercholesteremia Cardiovascular disease Brother Liver cancer Brother Pancreatic cancer Brother Lymphoma Sister Cervical cancer Sister Cirrhosis of liver Family/Other Cancer Family/Other Ovarian cancer Family history of problems with anesthesia: No Surgical History Surgical History History of endometrial ablation Hx of cystoscopy H/O lithotripsy History of esophagogastroduodenoscopy (EGD) Hx of colonoscopy History of Problems with Anesthesia: No Social History Social History Household Members: Family Alcohol intake: never Patient Tobacco Use Status: Former Tobacco user Quit Date: 1990 Tobacco use type: Cigarette Years Smoked: 25 +/- Second Hand Smoke Exposure: No Current occupational status: disabled Current occupation: rt handed Meds Allergies Allergy/AdvReac Type Severity Reaction Status Date / Time cephalexin [From KEFLEX] Allergy Intermediate RASH Verified 07/26/23 14:51 diazepam [From VALIUM] Allergy Intermediate Anxiety Verified 07/26/23 14:51 Penicillins Allergy Intermediate RASH Verified 07/26/23 14:51 Jakob Rosenthal Allergy Intermediate rash Uncoded 07/26/23 14:51 Home Medications ?Medication ?Instructions ?Recorded ?Confirmed ?Last Taken ?Type duloxetine 60 mg capsule,delayed 60 mg PO BID 02/19/20 07/26/23 10/23/21 History release (Cymbalta) folic acid 1 mg tablet 1 mg PO DAILY 02/19/20 07/26/23 10/23/21 History loratadine 10 mg tablet 10 mg PO DAILY 02/19/20 07/26/23 10/23/21 History meclizine 12.5 mg tablet 12.5 mg PO TID PRN Dizziness 02/19/20 07/26/23 10/23/21 History topiramate 50 mg tablet 50 mg PO BID 01/09/21 07/26/23 10/23/21 History hydrochlorothiazide 12.5 mg tablet 12.5 mg PO DAILY 07/15/21 07/26/23 10/23/21 History sumatriptan succinate 25 mg tablet 5 mg PO ONCE PRN Migraine Headache 07/15/21 07/26/23 Unknown History clonazepam 0.5 mg tablet 1 tab PO DAILY PRN Anxiety 10/24/21 07/26/23 Unknown History cholecalciferol (vitamin D3) 25 1 cap PO DAILY 10/27/21 07/26/23 Unknown History mcg (1,000 unit) capsule (Vitamin D3) fluticasone propionate 50 2 spray intranasal DAILY 10/27/21 07/26/23 Unknown History mcg/actuation nasal spray,suspension buspirone 5 mg tablet 5 mg PO DAILY 05/04/22 07/26/23 Unknown History doxepin 10 mg capsule 10 mg PO BEDTIME insomnia 06/16/22 07/26/23 Unknown History pravastatin 40 mg tablet 40 mg PO DAILY 12/14/22 07/26/23 Unknown History cyclobenzaprine 5 mg tablet 5 mg PO TID 07/26/23 07/26/23 Unknown History Exam Height,Weight and Vital Signs: Height 5 ft 4 in Weight 103.873 kg Pertinent Lab Results Pertinent Lab Results: Laboratory Tests 03/11/23 12:17 WBC 3.6 L Hgb 15.0 Hct 45.4 Plt Count 151 L D Sodium 142 Potassium 4.1 Chloride 109 H Carbon Dioxide 27 BUN 7 L Creatinine 0.91 Narrative Narrative: EKG 02/2023 Vent. Rate : 070 BPM Atrial Rate : 070 BPM P-R Int : 164 ms QRS Dur : 074 ms QT Int : 396 ms P-R-T Axes : 003 -06 010 degrees QTc Int : 427 ms Normal sinus rhythm Minimal voltage criteria for LVH, may be normal variant ( R in aVL ) Nonspecific T wave abnormality Abnormal ECG When compared with ECG of 11-APR-2018 23:03, Vent. rate has decreased BY 40 BPM Assessment and Plan Assessment Anesthesia Assessment: Chart Reviewed Final Anesthetic Review Family History of Problems with Anesthesia: No History of Problems with Anesthesia: No
[2023-08-18 09:02] VITALS: BP 117/97; PULSE 99; RESP 18; TEMP 36.6; O2SAT 99
--- NOTE | 2023-08-18 09:25 | HO.ANESPROP2 ---
[facility] Active Problems Active Problems: All Active Problems Fibromyalgia, primary (Acute) Pre-op examination (Acute) Degenerative arthritis of lumbar spine (Acute) Medication monitoring encounter (Acute) Bilateral kidney stones (Acute) Kidney stones (Acute) TONIO (acute kidney injury) (Acute) Hydronephrosis with obstructing calculus (Acute) Chronic idiopathic constipation (Acute) GERD (gastroesophageal reflux disease) (Acute) Gastroparesis (Acute) Sleep apnea (Acute) Tendonitis of left rotator cuff (Acute) Injury of tendon of right rotator cuff (Acute) Impingement syndrome of both shoulders (Acute) Primary osteoarthritis of both knees (Acute) Paresthesia and pain of both upper extremities (Acute) Arthritis of right acromioclavicular joint (Acute) Snoring (Acute) Daytime sleepiness (Acute) Palpitations (Acute) Bursitis of left shoulder (Acute) Arthritis of left acromioclavicular joint (Acute) Gout, arthritis (Acute) Renal calculi (Acute) Past Medical History Medical History History of depression HTN (hypertension) Bursitis of left shoulder Arthritis of left acromioclavicular joint Gout, arthritis Renal calculi Rotator cuff tendonitis Class 2 obesity GERD (gastroesophageal reflux disease) Renal colic Fibromyalgia Osteoarthritis Functional capacity: independent ambulation Family History Family History Father Diabetes mellitus Hypercholesteremia Heart attack HTN (hypertension) Mother Diabetes mellitus HTN (hypertension) Heart attack Hypercholesteremia Cardiovascular disease Brother Liver cancer Brother Pancreatic cancer Brother Lymphoma Sister Cervical cancer Sister Cirrhosis of liver Family/Other Cancer Family/Other Ovarian cancer Family history of problems with anesthesia: No Surgical History Surgical History History of endometrial ablation Hx of cystoscopy H/O lithotripsy History of esophagogastroduodenoscopy (EGD) Hx of colonoscopy History of Problems with Anesthesia: No Social History Social History Household Members: Family Alcohol intake: never Patient Tobacco Use Status: Former Tobacco user Quit Date: 1990 Tobacco use type: Cigarette Years Smoked: 25 +/- Second Hand Smoke Exposure: No Advance Directives: No Advance Directives Information Provided: Yes Current occupational status: disabled Current occupation: rt handed Meds Allergies Allergy/AdvReac Type Severity Reaction Status Date / Time cephalexin [From KEFLEX] Allergy Intermediate RASH Verified 07/26/23 14:51 diazepam [From VALIUM] Allergy Intermediate Anxiety Verified 07/26/23 14:51 Penicillins Allergy Intermediate RASH Verified 07/26/23 14:51 Jakob Rosenthal Allergy Intermediate rash Uncoded 07/26/23 14:51 Active Medications: Current Medications Lactated Ringer's (Lr) 1,000 mls @ 100 mls/hr IVCONT .Q10H BING Home Medications ?Medication ?Instructions ?Recorded ?Confirmed ?Last Taken ?Type duloxetine 60 mg capsule,delayed 60 mg PO BID 02/19/20 07/26/23 10/23/21 History release (Cymbalta) folic acid 1 mg tablet 1 mg PO DAILY 02/19/20 07/26/23 10/23/21 History loratadine 10 mg tablet 10 mg PO DAILY 02/19/20 07/26/23 10/23/21 History meclizine 12.5 mg tablet 12.5 mg PO TID PRN Dizziness 02/19/20 07/26/23 10/23/21 History topiramate 50 mg tablet 50 mg PO BID 01/09/21 07/26/23 10/23/21 History hydrochlorothiazide 12.5 mg tablet 12.5 mg PO DAILY 07/15/21 07/26/23 10/23/21 History sumatriptan succinate 25 mg tablet 5 mg PO ONCE PRN Migraine Headache 07/15/21 07/26/23 Unknown History clonazepam 0.5 mg tablet 1 tab PO DAILY PRN Anxiety 10/24/21 07/26/23 Unknown History cholecalciferol (vitamin D3) 25 1 cap PO DAILY 10/27/21 07/26/23 Unknown History mcg (1,000 unit) capsule (Vitamin D3) fluticasone propionate 50 2 spray intranasal DAILY 10/27/21 07/26/23 Unknown History mcg/actuation nasal spray,suspension buspirone 5 mg tablet 5 mg PO DAILY 05/04/22 07/26/23 Unknown History doxepin 10 mg capsule 10 mg PO BEDTIME insomnia 06/16/22 07/26/23 Unknown History pravastatin 40 mg tablet 40 mg PO DAILY 12/14/22 07/26/23 Unknown History cyclobenzaprine 5 mg tablet 5 mg PO TID 07/26/23 07/26/23 Unknown History Exam Height,Weight and Vital Signs: Height 5 ft 4 in Weight 103.873 kg Airway Mallampati Class: IV TM Dist: >3cm Neck ROM: Full Heart: RRR Lungs: CTA Assessment and Plan Assessment Anesthesia Assessment: Anesthesia Plan Discussed Final Anesthetic Review Family History of Problems with Anesthesia: No History of Problems with Anesthesia: No ASA Class: III Final Preanesthetic Review: Meds/Allgs Chart Reviewed, Consent Obtained/Reviewed and Anes Risks/Benef Reviewed Patient Risk: Intermediate Procedure Risk: Low Anesthetic Plan Anesthetic Plan: MAC: Disposition: Standard PACU
[2023-08-18] MEDS: Lactated Ringers 1,000 ML 100 ML IVCONT (09:26)
--- NOTE | 2023-08-18 09:41 | MHC.SHP ---
Pre-Procedural Eval Section A - 24 Hr Update-Section A only Date of Service: 08/18/23 Section B - Complete if H&P > 30 days Chief Complaint: colonoscopy Relevant Family History (Specify if Yes): No Relevant Social History: None Present Medications: see Short Stay Collaborative assessment Medical History: Significant History (History of depression HTN (hypertension) Bursitis of left shoulder Arthritis of left acromioclavicular joint Gout, arthritis Renal calculi Rotator cuff tendonitis Class 2 obesity GERD (gastroesophageal reflux disease) Renal colic Fibromyalgia Osteoarthritis) History of Previous Operations: Relevant previous surgery/procedure and date(s) (History of endometrial ablation Hx of cystoscopy H/O lithotripsy History of esophagogastroduodenoscopy (EGD) Hx of colonoscopy) Allergies: Allergies Allergy/AdvReac Type Severity Reaction Status Date / Time cephalexin [From KEFLEX] Allergy Intermediate RASH Verified 07/26/23 14:51 diazepam [From VALIUM] Allergy Intermediate Anxiety Verified 07/26/23 14:51 Penicillins Allergy Intermediate RASH Verified 07/26/23 14:51 Jakob Rosenthal Allergy Intermediate rash Uncoded 07/26/23 14:51 Review of Systems Sugical H&P ROS: Negative: Constitution, Cardiovascular, Respiratory, Neurological, Psychiatric, Hem-Onc, Allergic/Immunologic, Gastrointestinal, Genitourinary, Musculoskeletal, Integumentary, Endocrine and Eyes/Ears/Nose/Throat Exam Surgical H&P Exam: Normal: HEENT, Normal: Heart, Normal: Lungs, Normal: Extremities, Normal: Abdomen, Normal: Skin and Normal: Neurological Plan Diagnosis/Plan: Unchanged I have reviewed the history and physical and performed a pertinent physical examination on my patient. No changes have occurred unless specified. Time Spent With Patient Time: Total time managing care of this patient today ____ minutes.
--- NOTE | 2023-08-18 10:21 | P.OP_ITS ---
Operative Note Operative Note Date of Service: 08/18/23 Narrative: Operative Information Procedure Description: Colonoscopy Indication: Screening Anesthesia: MAC COLONOSCOPY Instrument: Olympus variable stiffness pediatric scope 190L Colonoscopy Monitoring: Vital signs and clinical assessment, continuous EKG monitoring, Pulse oximetry, Carbon Dioxide monitoring and blood pressure monitoring were done throughout the procedure. Colon withdrawal time was 17 minutes. Procedure: The patient was placed in the left lateral decubitis position and pre-procedure medications were administered. After a digital rectal examination of the ano-rectum, the video colonoscope was inserted into the rectum and advanced through the colon to the cecum/TI. The colonoscope was slowly withdrawn in a retrograde panoramic fashion and the colon mucosa was carefully examined including a retroflexed view of the rectum. Findings and interventions are described below. Procedure Difficulty: moderate, pressure applied, redundant colon Findings: Melanosis coli thorughout the colon Terminal Ileum-normal Cecum: 6-8 mm sessile polyp removed with cold snare Ascending Colon: normal Transverse Colon - x2 sessile polyps 8-10 mm removed with cold snare Descending Colon: x1 sessile polyp 8-10 mm removed with cold snare Sigmoid Colon: normal Rectum: Retroflexion with small internal hemorrhoids seen, grade I Anorectum - normal Intervention: cold snare Colon preparation: [place] Bowel Preparation Scale Right colon; 1-2 Transverse colon: 2 Left colon; 2 (0 = Unprepared colon segment with mucosa not seen due to solid stool that cannot be cleared. 1 = Portion of mucosa of the colon segment seen, but other areas of the colon segment not well seen due to staining, residual stool and/or opaque liquid. 2 = Minor amount of residual staining, small fragments of stool and/or opaque liquid, but mucosa of colon segment seen well. 3 = Entire mucosa of colon segment seen well with no residual staining, small fragments of stool or opaque liquid) Impression and Post Procedure Diagnosis: diverticulosis colon polyps internal hemorrhoids redundant colon Plan: High fiber diet leaflet Avoid straining at stool, epsom salts and sitz bath, anusol supps or cream Repeat Colonoscopy in 3 years due to polyps and fair prep on right side or earlier if clinically indicated Above findings were reviewed with the patient and relevant handouts were provided if indicated.
[2023-08-18 10:25] VITALS: BP 115/74; PULSE 80; RESP 16; TEMP 36.1; O2SAT 98
--- NOTE | 2023-08-18 10:35 | HO.POSTANES ---
Post Anesthesia Evaluation Post Anesthesia Evaluation Date of Service: 08/18/23 Vital Signs: Vital Signs Temp Pulse Resp BP Pulse Ox O2 Del Method 08/18/23 10:25 97 F 80 16 115/74 98 Room Air 08/18/23 09:02 97.9 F 99 18 117/97 H 99 Room Air Anesthesia: Monitored Mental Status: Awake Pain Control: Satisfactory Nausea/Vomiting: None Hydration: Adequate Anesthesia-Related Issues: No Anes. Related Issues
[2023-08-18 10:40] VITALS: BP 118/91; PULSE 87; RESP 16; TEMP 36.6; O2SAT 98
--- NOTE | 2023-08-18 14:41 | HO.POSTANES ---
Post Anesthesia Evaluation Post Anesthesia Evaluation Date of Service: 08/18/23 Vital Signs: Vital Signs Temp Pulse Resp BP Pulse Ox O2 Del Method 08/18/23 10:40 98 F 87 16 118/91 H 98 Room Air 08/18/23 10:25 97 F 80 16 115/74 98 Room Air 08/18/23 09:02 97.9 F 99 18 117/97 H 99 Room Air Anesthesia: Monitored Mental Status: Awake Pain Control: Satisfactory Nausea/Vomiting: None Hydration: Adequate Anesthesia-Related Issues: No Anes. Related Issues
== END 2023-08-18 11:26 | disposition home or self-care (01) ==
PROVIDERS: PCP Internal Medicine; Visit Provider Internal Medicine Gastroenterology
PROC: 0DJD8ZZ Inspection of Lower Intestinal Tract, Via Natural or Artificial Opening Endoscopic (ICD-10-PCS; CPT 45378; principal; 2023-08-18 10:30)
DX: Z12.11 Encounter for screening for malignant neoplasm of colon (principal); D12.0 Benign neoplasm of cecum; D12.3 Benign neoplasm of transverse colon; D12.4 Benign neoplasm of descending colon; K64.0 First degree hemorrhoids; K63.89 Other specified diseases of intestine; Q43.8 Other specified congenital malformations of intestine; K59.04 Chronic idiopathic constipation; K31.84 Gastroparesis; I10 Essential (primary) hypertension; K21.9 Gastro-esophageal reflux disease without esophagitis; M79.7 Fibromyalgia; M10.9 Gout, unspecified; E66.9 Obesity, unspecified; Z68.39 Body mass index [BMI] 39.0-39.9, adult; Z79.899 Other long term (current) drug therapy; Z88.0 Allergy status to penicillin; Z88.1 Allergy status to other antibiotic agents; Z88.8 Allergy status to other drugs, medicaments and biological substances; Z87.891 Personal history of nicotine dependence
CPT/HCPCS: 45385; 88305; J1596; J2704

== ENCOUNTER → 2023-08-18 08:31 | Outpatient (BNV) | payer MEDICAID, SELFPAY | PROVIDERS: PCP Internal Medicine; Visit Provider Internal Medicine Gastroenterology | DX: Z12.11 Encounter for screening for malignant neoplasm of colon (principal); D12.3 Benign neoplasm of transverse colon; K63.89 Other specified diseases of intestine; K64.0 First degree hemorrhoids | CPT/HCPCS: 45385 ==

== ENCOUNTER 2023-09-01 11:20 | Outpatient (AMB) | payer MEDICAID, SELFPAY ==
[2023-09-01 11:23] VITALS: BP 129/84; PULSE 109; BMI 40.2
--- NOTE | 2023-09-01 11:23 | A.OFFVIS_ITS ---
Vital Signs 09/01/23 11:23 Height 5 ft 4 in Weight 234 lb 2.095 oz BMI 40.2 BP 129/84 Blood Pressure Location Rt brachial Position Sitting Pulse 109 H Intake Visit Reasons: S/p colon Donis Intake Note: Patient returns in follow up of colonoscopy performed on 08/18/23. CC: Patient reports doing well and denies having any GI concerns. Endocrinology Teacher Required: Yes Allergies cephalexin [From KEFLEX] Allergy (Intermediate, Verified 09/01/23 11:25) RASH diazepam [From VALIUM] Allergy (Intermediate, Verified 09/01/23 11:25) Anxiety Penicillins Allergy (Intermediate, Verified 09/01/23 11:25) RASH Jakob Rosenthal Allergy (Intermediate, Uncoded 07/26/23 14:51) rash HPI HPI S/p colon Donis: Details: Assessment & Plan (1) Chronic idiopathic constipation: ?Code(s): K59.04 - Chronic idiopathic constipation ?Plan: [place] #[id number], Lani She says she is doing well. She continues on her reglan and Linzess, and has senna and magnesium as a back up.? She would like 90 day supply for her medications as this is less expensive her. She continues on her lansoprazole with good control of her GERD. Return office visit in 6 months (2) GERD (gastroesophageal reflux disease): ?Code(s): K21.9 - Gastro-esophageal reflux disease without esophagitis (3) Gastroparesis: ?Code(s): K31.84 - Gastroparesis ? ? ? Medications: Changed From lansoprazole 30 mg? PO DAILY 30 caps 0RF K21.9 - Gastro-esophageal reflux disease without esophagitis ? To lansoprazole 30 mg? PO DAILY 90 days 90 caps 1RF K21.9 - Gastro-esophageal reflux disease without esophagitis ? From linaclotide 290 mcg? PO DAILY 30 caps 0RF K59.04 - Chronic idiopathic constipation ? To linaclotide (Linzess) 290 mcg? PO DAILY 90 days 90 caps 1RF K59.04 - Chronic idiopathic constipation ? From magnesium oxide 400 mg? PO BID 60 tabs 0RF K59.04 - Chronic idiopathic constipation ? To magnesium oxide 400 mg? PO BID 90 days 180 tabs 0RF K59.04 - Chronic idiopathic constipation ? From metoclopramide HCl 5 mg? PO .TIDAC 90 tabs 0RF K31.84 - Gastroparesis ? To metoclopramide HCl 5 mg? PO .TIDAC 90 days 270 tabs 1RF K31.84 - Gastroparesis ? From sennosides 17.2 mg (2 x 8.6 mg) PO BID PRN 120 tabs 6RF for constipation ? ? To sennosides (senna) 17.2 mg (2 x 8.6 mg) PO BID 90 days PRN 120 tabs 1RF for constipation ? ? TODAY'S VISIT [place]oese # She says she is doing well. She continues on her reglan and Linzess, and has senna and magnesium as a back up.? She would like 90 day supply for her medications as this is less expensive her. Return office visit in 6 months [facility] Medical History History of depression HTN (hypertension) Bursitis of left shoulder Arthritis of left acromioclavicular joint Gout, arthritis Renal calculi Rotator cuff tendonitis Class 2 obesity GERD (gastroesophageal reflux disease) Renal colic Fibromyalgia Osteoarthritis Surgical History (Updated 09/01/23 @ 11:29 by Jackie Price [facility]) History of endometrial ablation Hx of cystoscopy H/O lithotripsy History of esophagogastroduodenoscopy (EGD) Hx of colonoscopy Family History Father Diabetes mellitus Hypercholesteremia Heart attack HTN (hypertension) Mother Diabetes mellitus HTN (hypertension) Heart attack Hypercholesteremia Cardiovascular disease Brother Liver cancer Brother Pancreatic cancer Brother Lymphoma Sister Cervical cancer Sister Cirrhosis of liver Family/Other Cancer Family/Other Ovarian cancer Social History Household Members: Family Alcohol intake: never Patient Tobacco Use Status: Former Tobacco user Quit Date: 1990 Tobacco use type: Cigarette Years Smoked: 25 +/- Second Hand Smoke Exposure: No Current occupational status: disabled Current occupation: rt handed Review of Systems Const Denies fatigue, Denies fever(s), Denies night sweats, Denies poor appetite and Denies weight loss ENT Reports Normal hearing present, Denies dysphagia, Denies odynophagia, Denies throat swelling and Denies tongue swelling Card Reports no additional complaints Resp Reports no additional complaints GI Details: Denies abdominal pain, Denies melena, Denies bloating, Denies hematochezia, Reports constipation, Denies GI cramping, Denies dysphagia, Denies excessive flatus, Reports early satiety, Reports heartburn, Denies diarrhea, Denies nausea, Denies odynophagia, Denies vomiting and Denies hematemesis Skin/Breast Denies pruritus, Denies lesions, Denies rash and Denies jaundice Neuro Reports Normal hearing present and Denies Abnormal speech present Endo Denies fatigue Aller/Immun Denies throat swelling and Denies tongue swelling Physical Exam Vital Signs: Last Vital Signs Pulse 109 H 09/01/23 11:23 BP 129/84 09/01/23 11:23 BMI result Body Mass Index 40.2 Const General: cooperative, no acute distress, well developed and well groomed Nutritional Appearance: well nourished and obese Orientation/consciousness: oriented to person, oriented to place and oriented to time Limitations: language barrier HEENT Head: Yes normocephalic and Yes atraumatic Eyes General: appearance normal, both eyes and all related structures Pupils: Equal, round and reactive pupils present Neck Neck: Yes normal visual inspection and Yes no lymphadenopathy Thyroid: Thyroid normal Resp Effort & Inspection: normal respiratory effort and able to speak in complete sentences Auscultation: clear to auscultation bilaterally Cardio Rate: regular rate Rhythm: regular rhythm Heart sounds: Normal, physiologic split S2 sound present Peripheral pulses: radial pulses present and posterior tibial pulses present GI Inspection: No distended, Yes Abdominal panniculus present and Yes obesity Palpation (GI): Soft to palpation, nontender, no guarding, not rigid and No hepatosplenomegaly present Percussion: Yes normal to percussion Auscultation: normal bowel sounds Rectal Exam - Female: deferred Skin General skin exam: no rashes or lesions noted, turgor normal, skin not dry, no jaundice, No spider nevi and no striae Rashes: no rashes Nails: normal Neuro General: oriented to person, oriented to place and oriented to time Cranial nerves: Yes Equal, round and reactive pupils present and Yes Normal hearing present Speech: No Abnormal speech present Extrem General: Yes normal to inspection, No clubbing, No cyanosis and No edema Psych Appearance: grossly normal and well kempt Mental Status: mental status grossly normal Speech and movement: Normal speech and movement present Affect: normal affect Attitude: cooperative Thought process: Normal thought process present and not confabulating Thought content: Normal thought content present Insight: Fair insight present (Psych) Judgement: Fair judgement present (Psych) Assessment & Plan Assessment & Plan (1) GERD (gastroesophageal reflux disease): Code(s): K21.9 - Gastro-esophageal reflux disease without esophagitis Category: Medical (2) Chronic idiopathic constipation: Code(s): K59.04 - Chronic idiopathic constipation Category: Medical Plan [place]oese # She says she is doing well. She continues on her reglan and Linzess, and has senna and magnesium as a back up.? She would like 90 day supply for her medications as this is less expensive her. Return office visit in 6 months Medications: Refilled linaclotide (Linzess) 290 mcg PO DAILY 90 caps 3RF 90 days K59.04 - Chronic idiopathic constipation magnesium oxide 400 mg PO BID 180 tabs 3RF K59.04 - Chronic idiopathic constipation sennosides (senna) 17.2 mg (2 x 8.6 mg) PO BID PRN 180 tabs 1RF for constipation lansoprazole 30 mg PO DAILY 90 caps 1RF K21.9 - Gastro-esophageal reflux disease without esophagitis metoclopramide HCl 5 mg PO TID 270 tabs 1RF K31.84 - Gastroparesis Coding Level of Care Code Est Pt Level 3 (53177) Diagnoses GERD (gastroesophageal reflux disease) K21.9 Chronic idiopathic constipation K59.04
== END 2023-09-01 11:34 | disposition home or self-care (01) ==
PROVIDERS: PCP Internal Medicine; Visit Provider Nurse Practitioner
DX: K21.9 Gastro-esophageal reflux disease without esophagitis (principal); K59.04 Chronic idiopathic constipation
CPT/HCPCS: 99213

== ENCOUNTER → 2023-09-01 11:20 | Outpatient (BNVA) | payer MEDICAID, SELFPAY | PROVIDERS: PCP Internal Medicine; Visit Provider Nurse Practitioner | DX: K21.9 Gastro-esophageal reflux disease without esophagitis (principal); K59.04 Chronic idiopathic constipation | CPT/HCPCS: 99212 ==

== ENCOUNTER 2024-01-24 12:21 | Outpatient (REF) | payer MEDICAID, SELFPAY ==
--- NOTE | ~2024-01-24 | MM_ITS ---
EXAMINATION: MM SCREENING DIGITAL BREAST TOMOSYNTHESIS, BILATERAL CLINICAL INFORMATION: Screening. Asymptomatic. COMPARISON: Mammography: Comparison is made with available priors TECHNIQUE: Digital breast mammography with tomosynthesis is performed in both the craniocaudal and mediolateral oblique views along with computer-aided detection (CAD). FINDINGS: There are scattered areas of fibroglandular density (ACR BI-RADS breast composition Category b). There are no significant masses, abnormal calcifications, or other abnormalities. MM/MM tomosynthesis screening BI IMPRESSION: No mammographic evidence of malignancy. ASSESSMENT: BI-RADS BI-RADS 1 - Negative RECOMMENDATION: Routine annual mammography screening. 1 year F/U This examination should not preclude the clinical evaluation of a suspicious palpable abnormality. This patient's information was entered into a reminder system with a target due date for their next mammogram. Electronically signed by: Maria Ines Velazquez DO 02/03/2024 09:04 AM EDT
== END 2024-01-24 12:22 | disposition home or self-care (01) ==
LOC: HO.MAMMO 12:21
PROVIDERS: PCP Internal Medicine; Visit Provider Internal Medicine
DX: Z12.31 Encounter for screening mammogram for malignant neoplasm of breast (principal)
CPT/HCPCS: 77063; 77067

== ENCOUNTER → 2024-01-24 12:45 | Outpatient (BNV) | payer MEDICAID, SELFPAY | PROVIDERS: PCP Internal Medicine; Visit Provider Internal Medicine | DX: Z12.31 Encounter for screening mammogram for malignant neoplasm of breast (principal) | CPT/HCPCS: 77063; 77067 ==

== ENCOUNTER 2024-02-08 12:55 | Outpatient (REF) | payer MEDICAID, SELFPAY ==
--- NOTE | ~2024-02-08 | XR_ITS ---
EXAMINATION: XR ABDOMEN KUB 2 VIEWS CLINICAL INDICATION: Calculus of kidney N20.0. H/o right kidney stone, lower pole, 4 mm. COMPARISON: XR KUB 04/06/[address] 01/19/2023 TECHNIQUE: AP view of the abdomen. FINDINGS: 5 mm calculus in the expected region of the right kidney, suspicious for a renal calculus. No additional renal calculi seen. Bowel gas and stool projected over the renal fossa limiting evaluation. Nonobstructive bowel gas pattern. Phleboliths in the pelvis. Degenerative changes in the spine. XR/XR KUB IMPRESSION: 5 mm right renal calculus. Bowel gas and stool limiting evaluation for renal stones. Study is assigned for dictation on April 10, 2024 Electronically signed by: Jake Lang MD 04/10/2024 11:03 AM STEVE
== END 2024-02-08 12:56 | disposition home or self-care (01) ==
LOC: HO.XRAY 12:55
PROVIDERS: PCP Internal Medicine; Visit Provider Urology
DX: N20.0 Calculus of kidney (principal)
CPT/HCPCS: 74018

== ENCOUNTER 2024-02-13 13:31 | Outpatient (AMB) | payer MEDICAID, SELFPAY ==
--- NOTE | 2024-02-13 13:23 | A.OFFVIS_ITS ---
Intake Visit Reasons: 1 yr follow up/ KUB Intake Note: Patient presents today for a 1y follow-up KUB Meds- Vitamin B6, ALLOPURINOL Allergies to Antibiotic- Penicillin, CEPHALEXIN Blood Thinner- None Glass Scullion Required: No Accompanied by: Self / Same As Patient Allergies cephalexin [From KEFLEX] Allergy (Intermediate, Verified 03/01/24 13:43) RASH diazepam [From VALIUM] Allergy (Intermediate, Verified 03/01/24 13:43) Anxiety menthol [From BenGay] Allergy (Intermediate, Verified 03/01/24 13:43) Rash methyl salicylate [From BenGay] Allergy (Intermediate, Verified 03/01/24 13:43) Rash Penicillins Allergy (Intermediate, Verified 03/01/24 13:43) RASH HPI Comments Details: 02/13/24--Milady is a 59-year-old female who presents today via Tele-health visit for one year follow-up for kidney stones. She denies renal colic symptoms. She was last evaluated 02/11/2023- for CT scan results. I reviewed the abdomen/pelvis CT results from 01/19/2023 revealed punctate calcifications seen in the collecting system of right kidney as well as nonobstructing lower pole stone which has been stable 0.4 cm stone. She has been taking vitamin B6 and allopurinol 100 mg. She denies any urinary symptoms at this time. Discussed treatment options to include ESWL.Discussed risks to include but not limited to, blood in the urine, bruising to the skin, kidney hematoma, possible need for another procedure if a stone fragment obstructs the ureter while passing, possible need to repeat procedure if stone is not completely fragmented. Review of chart: Imagings: abdomen/pelvis CT results from 01/19/2023 revealed punctate calcifications seen in the collecting system of right kidney as well as nonobstructing lower pole stable since previous study 0.4 cm stone renal sono, 01/18/22- multiple right kidney stones the largest 1 cm stone, KUB - 04/06/22-Probable small 3 mm right lower pole renal stone. Labs: 24 hr urine Total volume? 1.65 L, Calcium? 108 mg; Oxalate? 44 mg, Sodium 123, Citrate? 900 mg.?? PFSH Medical History (Updated 03/01/24 @ 14:08 by TIGRE Davis) Renal calculi Injury of tendon of right rotator cuff TONIO (acute kidney injury) Kidney stones History of depression HTN (hypertension) Bursitis of left shoulder Arthritis of left acromioclavicular joint Gout, arthritis Rotator cuff tendonitis Class 2 obesity GERD (gastroesophageal reflux disease) Renal colic Fibromyalgia Osteoarthritis Surgical History History of endometrial ablation Hx of cystoscopy H/O lithotripsy History of esophagogastroduodenoscopy (EGD) Hx of colonoscopy Family History Father Diabetes mellitus Hypercholesteremia Heart attack HTN (hypertension) Mother Diabetes mellitus HTN (hypertension) Heart attack Hypercholesteremia Cardiovascular disease Brother Liver cancer Brother Pancreatic cancer Brother Lymphoma Sister Cervical cancer Sister Cirrhosis of liver Family/Other Cancer Family/Other Ovarian cancer Social History Household Members: Family Alcohol intake: never Patient Tobacco Use Status: Former Tobacco user Tobacco use type: Cigarette Years Smoked: 25 +/- Second Hand Smoke Exposure: No Current occupational status: disabled Current occupation: rt handed Review of Systems Const All systems reviewed & are unremarkable except as noted in HPI and below Reports no additional complaints Eyes Reports no additional complaints ENT Reports no additional complaints Card Reports no additional complaints Resp Reports no additional complaints GI Reports no additional complaints Reports as per HPI Musc Reports no additional complaints Skin/Breast Reports system reviewed and no additional complaints, except as documented Neuro Reports no additional complaints Psych Reports no additional complaints Endo Reports no additional complaints James/Lymph Reports no additional complaints Aller/Immun Reports no additional complaints Telehealth Telehealth Telehealth Platform: [facility] Location of provider rendering services: practice address Location of patient: address on file Patient Identification confirmed using: Name, : Yes Telehealth method: voice only Patient verbally consented to treatment: Yes Patient verbally consented to billing insurance company: Yes Patient informed of any privacy concerns related to visit: Yes Minutes spent on Phone/Video with Pt.: 18 Assessment & Plan Assessment & Plan (1) Kidney stones: Code(s): N20.0 - Calculus of kidney Category: Medical Plan Right ESWL Patient Instructions: The patient had an opportunity to ask questions regarding treatment plan. The patient expressed understanding and agreement with the above treatment plan. The patient is aware they should contact our office by phone for worsening of their current condition or the appearance of new symptoms. Compliance is encouraged with any medications and followup testing that is ordered. It is a privilege to be allowed the opportunity to participate in the urologic care of your patient. If you have any questions or concerns regarding treatment for the above conditions please do not hesitate to contact me. The office telephone contact is [phone]. This note is constructed in part using voice recognition software. While every effort has been made to ensure accuracy tack puller errors may have been included. Yours sincerely, Fly Fiore MD Coding Level of Care Code Tele Est Pt Level 4 (74272) Diagnoses Kidney stones N20.0
== END 2024-02-13 14:31 | disposition home or self-care (01) ==
LOC: HO.HUSH 13:31
PROVIDERS: PCP Internal Medicine; Visit Provider Urology
DX: N20.0 Calculus of kidney (principal)
CPT/HCPCS: 99214

== ENCOUNTER → 2024-02-13 13:31 | Outpatient (BNVA) | payer MEDICAID, SELFPAY | PROVIDERS: PCP Internal Medicine; Visit Provider Urology ==

== ENCOUNTER 2024-03-01 13:03 | Outpatient (AMB) | payer MEDICAID, SELFPAY ==
--- NOTE | 2024-03-01 13:33 | MHC.OFFVIS ---
Vital Signs 03/01/24 13:37 Height 5 ft 4 in Weight 242 lb 8.136 oz BMI 41.6 BP 121/75 Blood Pressure Location Rt brachial Position Sitting Pulse 92 Intake Visit Reasons: 6 month follow up Intake Note: Patient in office today in 6 months follow up of CIC. CC: Patient reports doing well and denies any new GI symptoms or concerns. Television Writer Required: Yes Allergies cephalexin [From KEFLEX] Allergy (Intermediate, Verified 03/01/24 13:43) RASH diazepam [From VALIUM] Allergy (Intermediate, Verified 03/01/24 13:43) Anxiety menthol [From BenGay] Allergy (Intermediate, Verified 03/01/24 13:43) Rash methyl salicylate [From BenGay] Allergy (Intermediate, Verified 03/01/24 13:43) Rash Penicillins Allergy (Intermediate, Verified 03/01/24 13:43) RASH HPI HPI 6 month follow up: Details: Assessment & Plan (1) Chronic idiopathic constipation: ?Code(s): K59.04 - Chronic idiopathic constipation ?Plan: [place] #[id number], Lani She says she is doing well. She continues on her reglan and Linzess, and has senna and magnesium as a back up.? She would like 90 day supply for her medications as this is less expensive her. She continues on her lansoprazole with good control of her GERD. Return office visit in 6 months (2) GERD (gastroesophageal reflux disease): ?Code(s): K21.9 - Gastro-esophageal reflux disease without esophagitis (3) Gastroparesis: ?Code(s): K31.84 - Gastroparesis ? ? ? Medications: Changed From lansoprazole 30 mg? PO DAILY 30 caps 0RF K21.9 - Gastro-esophageal reflux disease without esophagitis ? To lansoprazole 30 mg? PO DAILY 90 days 90 caps 1RF K21.9 - Gastro-esophageal reflux disease without esophagitis ? From linaclotide 290 mcg? PO DAILY 30 caps 0RF K59.04 - Chronic idiopathic constipation ? To linaclotide (Linzess) 290 mcg? PO DAILY 90 days 90 caps 1RF K59.04 - Chronic idiopathic constipation ? From magnesium oxide 400 mg? PO BID 60 tabs 0RF K59.04 - Chronic idiopathic constipation ? To magnesium oxide 400 mg? PO BID 90 days 180 tabs 0RF K59.04 - Chronic idiopathic constipation ? From metoclopramide HCl 5 mg? PO .TIDAC 90 tabs 0RF K31.84 - Gastroparesis ? To metoclopramide HCl 5 mg? PO .TIDAC 90 days 270 tabs 1RF K31.84 - Gastroparesis ? From sennosides 17.2 mg (2 x 8.6 mg) PO BID PRN 120 tabs 6RF for constipation ? ? To sennosides (senna) 17.2 mg (2 x 8.6 mg) PO BID 90 days PRN 120 tabs 1RF for constipation ? ? TODAY'S VISIT [place] She continues to do very well. She continues on her reglan and Linzess, and has senna and magnesium as a back up.? She would like 90 day supply for her medications as this is less expensive her. She continues on her lansoprazole with good control of her GERD. Return office visit in 6 months [facility] Medical History (Updated 03/01/24 @ 14:08 by TIGRE Davis) Renal calculi Injury of tendon of right rotator cuff TONIO (acute kidney injury) Kidney stones History of depression HTN (hypertension) Bursitis of left shoulder Arthritis of left acromioclavicular joint Gout, arthritis Rotator cuff tendonitis Class 2 obesity GERD (gastroesophageal reflux disease) Renal colic Fibromyalgia Osteoarthritis Surgical History History of endometrial ablation Hx of cystoscopy H/O lithotripsy History of esophagogastroduodenoscopy (EGD) Hx of colonoscopy Family History Father Diabetes mellitus Hypercholesteremia Heart attack HTN (hypertension) Mother Diabetes mellitus HTN (hypertension) Heart attack Hypercholesteremia Cardiovascular disease Brother Liver cancer Brother Pancreatic cancer Brother Lymphoma Sister Cervical cancer Sister Cirrhosis of liver Family/Other Cancer Family/Other Ovarian cancer Social History (Reviewed 03/01/24 @ 13:43 by JOSE Gross Household Members: Family Are you a primary child care counselor to a significant other at home: No Do you presently have visiting nurse or other home services: No Alcohol intake: never Patient Tobacco Use Status: Former Tobacco user Tobacco use type: Cigarette Years Smoked: 25 +/- Second Hand Smoke Exposure: No Current occupational status: disabled Current occupation: rt handed Review of Systems Const Denies fatigue, Denies fever(s), Denies night sweats, Denies poor appetite and Denies weight loss ENT Reports Normal hearing present, Denies dental pain, Denies dysphagia, Denies hearing loss, Denies mouth pain, Denies odynophagia, Denies throat swelling, Denies tongue swelling and Reports other (Dentition adequate) Card Reports no additional complaints Resp Reports no additional complaints GI Details: Denies abdominal pain, Denies melena, Denies bloating, Denies hematochezia, Reports constipation, Denies GI cramping, Denies dysphagia, Denies excessive flatus, Reports early satiety, Reports heartburn, Denies diarrhea, Denies nausea, Denies odynophagia, Denies vomiting and Denies hematemesis Skin/Breast Denies pruritus, Denies lesions, Denies rash and Denies jaundice Neuro Reports Normal hearing present and Denies Abnormal speech present Endo Denies fatigue Aller/Immun Denies throat swelling and Denies tongue swelling Physical Exam Vital Signs: Last Vital Signs Pulse 92 03/01/24 13:37 BP 121/75 03/01/24 13:37 BMI result Body Mass Index 41.6 Const General: cooperative, no acute distress, well developed and well groomed Nutritional Appearance: well nourished and obese Orientation/consciousness: oriented to person, oriented to place and oriented to time Limitations: language barrier HEENT Head: Yes normocephalic and Yes atraumatic Eyes General: appearance normal, both eyes and all related structures Pupils: Equal, round and reactive pupils present Neck Neck: Yes normal visual inspection and Yes no lymphadenopathy Thyroid: Thyroid normal Resp Effort & Inspection: normal respiratory effort and able to speak in complete sentences Auscultation: clear to auscultation bilaterally Cardio Rate: regular rate Rhythm: regular rhythm Heart sounds: Normal, physiologic split S2 sound present Peripheral pulses: radial pulses present and posterior tibial pulses present GI Inspection: No distended, No Abdominal panniculus present and Yes obesity Palpation (GI): Soft to palpation, nontender, no guarding, not rigid and No hepatosplenomegaly present Percussion: Yes normal to percussion Auscultation: normal bowel sounds Rectal Exam - Female: deferred Skin General skin exam: no rashes or lesions noted, turgor normal, skin not dry, no jaundice, No spider nevi and no striae Rashes: no rashes Nails: normal Neuro General: oriented to person, oriented to place and oriented to time Cranial nerves: Yes Equal, round and reactive pupils present and Yes Normal hearing present Speech: No Abnormal speech present Extrem General: Yes normal to inspection, No clubbing, No cyanosis and No edema Psych Appearance: grossly normal and well kempt Mental Status: mental status grossly normal Speech and movement: Normal speech and movement present Affect: normal affect Attitude: cooperative Thought process: Normal thought process present and not confabulating Thought content: Normal thought content present Insight: Limited insight present (Psych) Judgement: Limited judgement present (Psych) Assessment & Plan Assessment & Plan (1) GERD (gastroesophageal reflux disease): Code(s): K21.9 - Gastro-esophageal reflux disease without esophagitis Category: Medical (2) Chronic idiopathic constipation: Code(s): K59.04 - Chronic idiopathic constipation Category: Medical (3) Gastroparesis: Code(s): K31.84 - Gastroparesis Category: Medical (4) Tubular adenoma of colon: Comment: 07/2023 scopre=4 TA's repeat in 3 years Code(s): D12.6 - Benign neoplasm of colon, unspecified Category: Medical Plan [place] She continues to do very well. She continues on her reglan and Linzess, and has senna and magnesium as a back up.? She would like 90 day supply for her medications as this is less expensive her. She continues on her lansoprazole with good control of her GERD. Return office visit in 6 months Medications: Refilled lansoprazole 30 mg PO DAILY 90 caps 1RF K21.9 - Gastro-esophageal reflux disease without esophagitis linaclotide (Linzess) 290 mcg PO DAILY 90 caps 3RF 90 days K59.04 - Chronic idiopathic constipation metoclopramide HCl 5 mg PO TID 270 tabs 1RF K31.84 - Gastroparesis sennosides (senna) 17.2 mg (2 x 8.6 mg) PO BID PRN 180 tabs 1RF for constipation Coding Level of Care Code Est Pt Level 3 (93941) Diagnoses GERD (gastroesophageal reflux disease) K21.9 Chronic idiopathic constipation K59.04 Gastroparesis K31.84 Tubular adenoma of colon D12.6
[2024-03-01 13:37] VITALS: BP 121/75; PULSE 92; BMI 41.6
== END 2024-03-01 14:09 | disposition home or self-care (01) ==
LOC: HO.HGI 13:03
PROVIDERS: PCP Internal Medicine; Visit Provider Nurse Practitioner
DX: K21.9 Gastro-esophageal reflux disease without esophagitis (principal); K59.04 Chronic idiopathic constipation; K31.84 Gastroparesis; D12.6 Benign neoplasm of colon, unspecified
CPT/HCPCS: 99213

== ENCOUNTER → 2024-03-01 13:03 | Outpatient (BNVA) | payer MEDICAID, SELFPAY | PROVIDERS: PCP Internal Medicine; Visit Provider Nurse Practitioner | DX: K59.04 Chronic idiopathic constipation (principal); K21.9 Gastro-esophageal reflux disease without esophagitis; K31.84 Gastroparesis; D12.6 Benign neoplasm of colon, unspecified | CPT/HCPCS: 99212 ==

== ENCOUNTER 2024-03-28 05:45 | Day surgery (SDC) | payer MEDICAID, SELFPAY ==
[2024-03-26 13:41] VITALS: BMI 39.3
--- NOTE | 2024-03-27 09:45 | P.CONAN_ITS ---
Documented by User: Sol Penn NP 03/27/24 09:46 HPI - Anesthesia Eval Consult details Narrative: 59yo F for Right ESWL PMFSH Active Problems Active Problems: All Active Problems Tubular adenoma of colon (Acute) Fibromyalgia, primary (Acute) Pre-op examination (Acute) Degenerative arthritis of lumbar spine (Acute) Medication monitoring encounter (Acute) Bilateral kidney stones (Acute) Hydronephrosis with obstructing calculus (Acute) Chronic idiopathic constipation (Acute) GERD (gastroesophageal reflux disease) (Acute) Gastroparesis (Acute) Sleep apnea (Acute) Tendonitis of left rotator cuff (Acute) Impingement syndrome of both shoulders (Acute) Primary osteoarthritis of both knees (Acute) Paresthesia and pain of both upper extremities (Acute) Arthritis of right acromioclavicular joint (Acute) Snoring (Acute) Daytime sleepiness (Acute) Palpitations (Acute) Bursitis of left shoulder (Acute) Arthritis of left acromioclavicular joint (Acute) Gout, arthritis (Acute) Past Medical History Medical History (Updated 03/01/24 @ 14:08 by TIGRE Davis) Renal calculi Injury of tendon of right rotator cuff TONIO (acute kidney injury) Kidney stones History of depression HTN (hypertension) Bursitis of left shoulder Arthritis of left acromioclavicular joint Gout, arthritis Rotator cuff tendonitis Class 2 obesity GERD (gastroesophageal reflux disease) Renal colic Fibromyalgia Osteoarthritis Family History Family History Father Diabetes mellitus Hypercholesteremia Heart attack HTN (hypertension) Mother Diabetes mellitus HTN (hypertension) Heart attack Hypercholesteremia Cardiovascular disease Brother Liver cancer Brother Pancreatic cancer Brother Lymphoma Sister Cervical cancer Sister Cirrhosis of liver Family/Other Cancer Family/Other Ovarian cancer Family history of problems with anesthesia: No Surgical History Surgical History History of endometrial ablation Hx of cystoscopy H/O lithotripsy History of esophagogastroduodenoscopy (EGD) Hx of colonoscopy History of Problems with Anesthesia: No Social History Social History Household Members: Family Are you a primary customer care voice consultant to a significant other at home: No Do you presently have visiting nurse or other home services: No Alcohol intake: never Patient Tobacco Use Status: Former Tobacco user Tobacco use type: Cigarette Years Smoked: 25 +/- Second Hand Smoke Exposure: No Use of substances other than those prescribed or required for medical reasons: No Have you been hit, kicked, punched, or otherwise hurt by someone within the past year? If so, by whom?: No Are you DNR?: No Advance Directives: No Advance Directives Information Provided: Yes Advance Directives on File: No Recently lost weight without trying: No Eating poorly because of decreased appetite: No Nutrition Risks: No Nutritional Risk Patient : No : No Poor oral hygiene: No Current occupational status: disabled Current occupation: rt handed Meds Allergies Allergy/AdvReac Type Severity Reaction Status Date / Time cephalexin [From KEFLEX] Allergy Intermediate RASH Verified 03/01/24 13:43 diazepam [From VALIUM] Allergy Intermediate Anxiety Verified 03/01/24 13:43 menthol [From BenGay] Allergy Intermediate Rash Verified 03/01/24 13:43 methyl salicylate Allergy Intermediate Rash Verified 03/01/24 13:43 [From BenGay] Penicillins Allergy Intermediate RASH Verified 03/01/24 13:43 Home Medications ?Medication ?Instructions ?Recorded ?Confirmed ?Last Taken ?Type duloxetine 60 mg capsule,delayed 60 mg PO BID 02/19/20 03/26/24 10/23/21 History release (Cymbalta) folic acid 1 mg tablet 1 mg PO DAILY 02/19/20 03/26/24 10/23/21 History loratadine 10 mg tablet 10 mg PO DAILY 02/19/20 03/26/24 10/23/21 History topiramate 50 mg tablet 50 mg PO BID 01/09/21 03/26/24 10/23/21 History hydrochlorothiazide 12.5 mg tablet 12.5 mg PO DAILY 07/15/21 03/26/24 10/23/21 History sumatriptan succinate 25 mg tablet 5 mg PO ONCE PRN Migraine Headache 07/15/21 03/26/24 Unknown History clonazepam 0.5 mg tablet 1 tab PO DAILY PRN Anxiety 10/24/21 03/26/24 Unknown History cholecalciferol (vitamin D3) 25 1 cap PO DAILY 10/27/21 03/26/24 Unknown History mcg (1,000 unit) capsule (Vitamin D3) fluticasone propionate 50 2 spray intranasal DAILY 10/27/21 03/26/24 Unknown History mcg/actuation nasal spray,suspension buspirone 5 mg tablet 5 mg PO DAILY 05/04/22 03/26/24 Unknown History doxepin 10 mg capsule 10 mg PO BEDTIME insomnia 06/16/22 03/26/24 Unknown History pravastatin 40 mg tablet 40 mg PO DAILY 12/14/22 03/26/24 Unknown History cyclobenzaprine 5 mg tablet 5 mg PO TID 07/26/23 03/26/24 Unknown History meclizine 25 mg tablet 25 mg PO TID PRN Vertigo 03/01/24 03/26/24 Unknown History Exam Height,Weight and Vital Signs: Height 5 ft 4 in Weight 103.873 kg Assessment and Plan Assessment Anesthesia Assessment: Chart Reviewed Final Anesthetic Review Family History of Problems with Anesthesia: No History of Problems with Anesthesia: No Documented by User: Abebe Harris MD 03/28/24 07:54 [facility] Past Medical History Medical History (Updated 03/01/24 @ 14:08 by TIGRE Davis) Renal calculi Injury of tendon of right rotator cuff TONIO (acute kidney injury) Kidney stones History of depression HTN (hypertension) Bursitis of left shoulder Arthritis of left acromioclavicular joint Gout, arthritis Rotator cuff tendonitis Class 2 obesity GERD (gastroesophageal reflux disease) Renal colic Fibromyalgia Osteoarthritis Family History Family History Father Diabetes mellitus Hypercholesteremia Heart attack HTN (hypertension) Mother Diabetes mellitus HTN (hypertension) Heart attack Hypercholesteremia Cardiovascular disease Brother Liver cancer Brother Pancreatic cancer Brother Lymphoma Sister Cervical cancer Sister Cirrhosis of liver Family/Other Cancer Family/Other Ovarian cancer Surgical History Surgical History History of endometrial ablation Hx of cystoscopy H/O lithotripsy History of esophagogastroduodenoscopy (EGD) Hx of colonoscopy Social History Social History Household Members: Family Are you a primary customer care voice consultant to a significant other at home: No Do you presently have visiting nurse or other home services: No Alcohol intake: never Patient Tobacco Use Status: Former Tobacco user Tobacco use type: Cigarette Years Smoked: 25 +/- Second Hand Smoke Exposure: No Use of substances other than those prescribed or required for medical reasons: No Have you been hit, kicked, punched, or otherwise hurt by someone within the past year? If so, by whom?: No Are you DNR?: No Advance Directives: No Advance Directives Information Provided: Yes Advance Directives on File: No Recently lost weight without trying: No Eating poorly because of decreased appetite: No Nutrition Risks: No Nutritional Risk Patient : No : No Poor oral hygiene: No Current occupational status: disabled Current occupation: rt handed Meds Allergies Allergy/AdvReac Type Severity Reaction Status Date / Time cephalexin [From KEFLEX] Allergy Intermediate RASH Verified 03/01/24 13:43 diazepam [From VALIUM] Allergy Intermediate Anxiety Verified 03/01/24 13:43 menthol [From BenGay] Allergy Intermediate Rash Verified 03/01/24 13:43 methyl salicylate Allergy Intermediate Rash Verified 03/01/24 13:43 [From BenGay] Penicillins Allergy Intermediate RASH Verified 03/01/24 13:43 Home Medications ?Medication ?Instructions ?Recorded ?Confirmed ?Last Taken ?Type duloxetine 60 mg capsule,delayed 60 mg PO BID 02/19/20 03/26/24 10/23/21 History release (Cymbalta) folic acid 1 mg tablet 1 mg PO DAILY 02/19/20 03/26/24 10/23/21 History loratadine 10 mg tablet 10 mg PO DAILY 02/19/20 03/26/24 10/23/21 History topiramate 50 mg tablet 50 mg PO BID 01/09/21 03/26/24 10/23/21 History hydrochlorothiazide 12.5 mg tablet 12.5 mg PO DAILY 07/15/21 03/26/24 10/23/21 History sumatriptan succinate 25 mg tablet 5 mg PO ONCE PRN Migraine Headache 07/15/21 03/26/24 Unknown History clonazepam 0.5 mg tablet 1 tab PO DAILY PRN Anxiety 10/24/21 03/26/24 Unknown History cholecalciferol (vitamin D3) 25 1 cap PO DAILY 10/27/21 03/26/24 Unknown History mcg (1,000 unit) capsule (Vitamin D3) fluticasone propionate 50 2 spray intranasal DAILY 10/27/21 03/26/24 Unknown History mcg/actuation nasal spray,suspension buspirone 5 mg tablet 5 mg PO DAILY 05/04/22 03/26/24 Unknown History doxepin 10 mg capsule 10 mg PO BEDTIME insomnia 06/16/22 03/26/24 Unknown History pravastatin 40 mg tablet 40 mg PO DAILY 12/14/22 03/26/24 Unknown History cyclobenzaprine 5 mg tablet 5 mg PO TID 07/26/23 03/26/24 Unknown History meclizine 25 mg tablet 25 mg PO TID PRN Vertigo 03/01/24 03/26/24 Unknown History Exam Airway Mallampati Class: II TM Dist: <=3cm Neck ROM: Full Loose/Missing/Broken Teeth: Yes Heart: ok Lungs: ok Assessment and Plan Assessment Anesthesia Assessment: Anesthesia Plan Discussed Final Anesthetic Review NPO: Yes ASA Class: III Final Preanesthetic Review: No Changes in Pt Med Stat, Meds/Allgs Chart Reviewed, Consent Obtained/Reviewed and Anes Risks/Benef Reviewed Patient Risk: Intermediate Procedure Risk: Low Anesthetic Plan Anesthetic Plan: GA and Agree w/ Assess. and Plan Disposition: Standard PACU
[2024-03-28] VITALS (7 sets, daily range): BP systolic 103–156; BP diastolic 68–92; PULSE 75–100; RESP 16–20; TEMP 36.1–36.6; O2SAT 96–100
[2024-03-28] MEDS: Acetaminophen 1,000 MG/100 ML PIGGYBACK 400 MG IV (06:59)
[2024-03-28] MEDS: Lactated Ringers 1,000 ML 100 ML IVCONT (07:00)
--- NOTE | 2024-03-28 07:27 | MHC.SHP ---
Pre-Procedural Eval Section A - 24 Hr Update-Section A only Date of Service: 03/28/24 The patient is an INPATIENT: No The patient has been examined within 24 hours of the surgical procedure. The History & Physical has been completed within 30 days and I have reviewed it.: Yes Section B - Complete if H&P > 30 days Chief Complaint: Calculus of kidney Allergies: Allergies Allergy/AdvReac Type Severity Reaction Status Date / Time cephalexin [From KEFLEX] Allergy Intermediate RASH Verified 03/01/24 13:43 diazepam [From VALIUM] Allergy Intermediate Anxiety Verified 03/01/24 13:43 menthol [From BenGay] Allergy Intermediate Rash Verified 03/01/24 13:43 methyl salicylate Allergy Intermediate Rash Verified 03/01/24 13:43 [From BenGay] Penicillins Allergy Intermediate RASH Verified 03/01/24 13:43 Plan Diagnosis/Plan: Unchanged I have reviewed the history and physical and performed a pertinent physical examination on my patient. No changes have occurred unless specified. Right ESWL. Discussed risks to include but not limited to, blood in the urine, bruising to the skin, kidney hematoma, possible need for another procedure if a stone fragment obstructs the ureter while passing, possible need to repeat procedure if stone is not completely fragmented. Time Spent With Patient Time: Total time managing care of this patient today ____ minutes.
--- NOTE | 2024-03-28 08:13 | W.PM.OPN ---
Operative Note Operative Note Date of Service: 03/28/24 Narrative: PreOperative Diagnosis:? ? Right Renal stone Post Operative Diagnosis:?Right? Renal stone Procedure:?Right? ESWL Surgeon:?Dr Fly Fiore Anesthesia:?General Indications for procedure: The patient understands there is a risk of bruising or hematoma to the kidney, infection, and stone migration following the procedure and subsequent intervention may be required.? - Imaging 6x3 mm stone mid to lower pole right kidney Procedure: After informed consent was verified the patient was brought to the operating room and placed in a supine position.? Anesthesia was performed per protocol. Safety pause time-out was performed. Imaging was displayed in the room and laterality confirmed. ESWL was performed.?The stone was visualized on both fluoroscopy and ultrasound.? Shockwave lithotripsy was performed, with a maximum rate of 120 hertz. After the first 300 shocks a pause for 3 minutes was completed.? A total of 2500 shocks to a maximum of power of 20 with a maximum rate of 120 hertz.? Good fragmentation of the stone was appreciated. The patient tolerated the procedure well and was transferred to the recovery area upon completion. Complications: None
== END 2024-03-28 09:49 | disposition home or self-care (01) ==
PROVIDERS: PCP Internal Medicine; Visit Provider Urology
PROC: (CPT 50590; principal; 2024-03-28 07:30)
DX: N20.0 Calculus of kidney (principal); Z87.442 Personal history of urinary calculi; I10 Essential (primary) hypertension; M19.012 Primary osteoarthritis, left shoulder; M79.7 Fibromyalgia; K21.9 Gastro-esophageal reflux disease without esophagitis; M10.9 Gout, unspecified; E66.812 Obesity, class 2; Z79.51 Long term (current) use of inhaled steroids; Z79.899 Other long term (current) drug therapy; Z88.0 Allergy status to penicillin; Z88.1 Allergy status to other antibiotic agents; Z98.890 Other specified postprocedural states; Z87.891 Personal history of nicotine dependence
CPT/HCPCS: 50590; 74018; J0131; J1940; J1956; J2003; J2704; J3010

== ENCOUNTER → 2024-03-28 05:45 | Outpatient (BNV) | payer MEDICAID, SELFPAY | PROVIDERS: PCP Internal Medicine; Visit Provider Urology | DX: N20.0 Calculus of kidney (principal) | CPT/HCPCS: 50590 ==

== ENCOUNTER 2024-04-23 12:40 | Outpatient (REF) | payer MEDICAID, SELFPAY ==
--- NOTE | ~2024-04-23 | US_ITS ---
EXAMINATION: US RETROPERITONEAL LIMITED (RENAL ONLY) CLINICAL INFORMATION: Calculus of kidney. COMPARISON: Renal ultrasound 01/18/2022 and 10/27/2021. Correlated to X-ray abdomen KUB 04/23/[address]24 and 03/28/2024. CT abdomen and pelvis 01/19/2023. TECHNIQUE: Real-time imaging of the kidneys using grayscale and color Doppler technique. FINDINGS: Submitted for interpretation on April 30, 2024. RIGHT KIDNEY: 11 x 5 x 5 cm (SAG x AP x TRV). The kidney is normal in size, contour, and echogenicity. Renal cortical thickness is normal. No hydronephrosis. No gross solid or cystic lesion. Normal flow on color Doppler interrogation of the renal hilum. LEFT KIDNEY: 12 x 5 x 4 cm (SAG x AP x TRV). The kidney is normal in size, contour, and echogenicity. Renal cortical thickness is normal. No hydronephrosis. No solid or cystic lesion.. There are 3 and 5 mm hyperechoic structures in the midportion. There is flow on color Doppler interrogation of the renal hilum. US/US renal BI IMPRESSION: Nonobstructing nephrolithiasis, left kidney. No hydronephrosis.. Electronically signed by: Jose Lan MD 04/30/2024 09:17 AM EST
--- NOTE | ~2024-04-23 | XR_ITS ---
EXAMINATION: XR ABDOMEN KUB CLINICAL INDICATION: N20.0 - Calculus of kidney COMPARISON: March 28, 2024. TECHNIQUE: AP view of the abdomen. FINDINGS: No gross calcifications overlapping the kidney shadow. Punctate calcifications in the right lower pelvis likely phlebolith. No intestinal obstruction pattern. Multilevel lumbar spondylosis more conspicuous from L4-5 to L5-S1. Castellvi type III sacralization. Sclerosis and the sacroiliac joints. Vascular clips overlapping the left gluteal region. Spina bifida occulta, S1. XR/XR KUB IMPRESSION: No gross nephrolithiasis based upon x-ray. Electronically signed by: Jose Lan MD 04/30/2024 09:33 AM EST
== END 2024-04-23 12:41 | disposition home or self-care (01) ==
LOC: HO.US 12:40
PROVIDERS: PCP Internal Medicine; Visit Provider Urology
DX: N20.0 Calculus of kidney (principal)
CPT/HCPCS: 74018; 76775

== ENCOUNTER → 2024-04-23 12:42 | Outpatient (BNV) | payer MEDICAID, SELFPAY | PROVIDERS: PCP Internal Medicine; Visit Provider Radiology Diagnostic Radiology | DX: N20.0 Calculus of kidney (principal) | CPT/HCPCS: 74018; 76775 ==

== ENCOUNTER 2024-04-23 13:36 | Outpatient (REF) | payer MEDICAID, SELFPAY ==
[2024-04-23 16:14] LABS: MANUAL DIFF FLAG NO
[2024-04-23 16:20] LABS: Basophils Absolute Auto 0.1 X10*3/uL (0.0-0.2); Basophils Percent Auto 0.6 % (0-2); Eosinophils Absolute Auto 0.1 X10*3/uL (0.0-0.4); Eosinophils Percent Auto 1.2 % (0-4); Hematocrit 43.5 % (37.0-47.0); Hemoglobin 14.6 g/dl (12.0-16.0); Imm Gran Abs Auto 0.03 X10*3/uL (0.00-0.03); Imm Gran Pct Auto 0.4 % (0.0-0.4); Lymphocytes Absolute Auto 2.4 X10*3/uL (1.2-4.9); Lymphocytes Percent Auto 30.2 % (20-40); Mean Corpuscular HGB Conc 33.6 g/dl (31.0-35.0); Mean Corpuscular Hemoglobin 30.3 pg (27.0-33.0); Mean Corpuscular Volume 90.2 fL (80.0-98.0); Mean Platelet Volume 12.7 fL (9.4-12.3); Monocytes Absolute Auto 0.6 X10*3/uL (0.1-1.2); Monocytes Percent Auto 7.2 % (2-11); Neutrophils Absolute Auto 4.7 x10*3/uL (2.0-8.3); Neutrophils Percent Auto 60.4 % (45-73); Platelet Count 233 X10*3/uL (160-400); Red Blood Count 4.82 X10*6/uL (4.20-5.50); Red Cell Distribution Width 13.4 % (11.0-16.0); White Blood Count 7.8 X10*3/uL (4.8-10.8)
[2024-04-23 16:40] LABS: Estimated Average Glucose 120 mg/dL; Hemoglobin A1C 151.7105 umol/L; Hemoglobin A1c % 5.8 % (<6.0); Total Hemoglobin (HGBA1C) 3831.1643 umol/L
[2024-04-23 16:53] LABS: Alanine Aminotransferase 74 U/L (0-31); Alkaline Phosphatase 100 U/L (39-117); Anion Gap 10 (12-20); Aspartate Amino Transferase 61 U/L (5-31); Bilirubin Total 0.4 mg/dL (0.0-1.0); Blood Urea Nitrogen 20 mg/dL (9-16); Calcium 9.4 mg/dL (8.4-10.2); Carbon Dioxide 27 mmol/L (22-29); Chloride 108 mmol/L (96-108); Cholesterol 191 mg/dL (<200); Estimated Glomerular Filt Rate 56; Glucose Random 134 mg/dL (60-115); HDL Cholesterol 31 mg/dL (>40); LDL Cholesterol Calculated 97 mg/dL (<100); Potassium 4.2 mmol/L (3.3-5.1); Sodium 141 mmol/L (135-145); Total Protein 6.9 g/dL (6.5-8.0); Triglycerides 319 mg/dL (<150)
[2024-04-23 17:09] LABS: TSH reflex Free T4 1.75 uIU/mL (0.32-4.0); Vitamin D 25-OH Total 51.7 ng/mL (>30)
== END 2024-04-23 13:37 | disposition home or self-care (01) ==
LOC: HO.HHCL 13:36
PROVIDERS: Visit Provider Internal Medicine
DX: I10 Essential (primary) hypertension (principal)
CPT/HCPCS: 36415; 80053; 80061; 82306; 83036; 84443; 85025

== ENCOUNTER 2024-05-07 15:16 | Outpatient (AMB) | payer MEDICAID, SELFPAY ==
--- NOTE | 2024-05-06 17:09 | MHC.OFFVIS ---
Intake Visit Reasons: ESWL- follow up/KUB/US Intake Note: Patient is present for Urology Med: Antibiotic Allergy: Blood Thinner: Web Development Instructor Required: Yes Web Development Instructor Language: Ballet Soloist Name: Cyndi Perrin Information Interpreted: non-clinical & clinical Accompanied by: Self / Same As Patient Allergies cephalexin [From KEFLEX] Allergy (Intermediate, Verified 03/01/24 13:43) RASH diazepam [From VALIUM] Allergy (Intermediate, Verified 03/01/24 13:43) Anxiety menthol [From BenGay] Allergy (Intermediate, Verified 03/01/24 13:43) Rash methyl salicylate [From BenGay] Allergy (Intermediate, Verified 03/01/24 13:43) Rash Penicillins Allergy (Intermediate, Verified 03/01/24 13:43) RASH HPI Comments Details: 05/07/24--S/P right ESWL--reviewed KUB - 04/23/24- no radioopaque calculi visualized. 04/23/24- renal US - reports hyperechoic 3mm and 5 mm left pass renal stones. I have reviewed the results with the patient as well as reviewed the KUB films which show the right kidney stone is no longer visualized there was not a stone visualized in the left kidney previously on KUB or CT scan findings. I discussed with the patient that the Left kidney hyperechoic findings are less likely renal calculi. She did bring in stone fragments which we will send for stone analysis. 02/13/24--Milady is a 59-year-old female who presents today via Tele-health visit for one year follow-up for kidney stones. She denies renal colic symptoms. She was last evaluated 02/11/2023- for CT scan results. I reviewed the abdomen/pelvis CT results from 01/19/2023 revealed punctate calcifications seen in the collecting system of right kidney as well as nonobstructing lower pole stone which has been stable 0.4 cm stone. She has been taking vitamin B6 and allopurinol 100 mg. She denies any urinary symptoms at this time. Discussed treatment options to include ESWL.Discussed risks to include but not limited to, blood in the urine, bruising to the skin, kidney hematoma, possible need for another procedure if a stone fragment obstructs the ureter while passing, possible need to repeat procedure if stone is not completely fragmented. Review of chart: Imagings: abdomen/pelvis CT results from 01/19/2023 revealed punctate calcifications seen in the collecting system of right kidney as well as nonobstructing lower pole stable since previous study 0.4 cm stone renal sono, 01/18/22- multiple right kidney stones the largest 1 cm stone, KUB - 04/06/22-Probable small 3 mm right lower pole renal stone. Labs: 24 hr urine Total volume? 1.65 L, Calcium? 108 mg; Oxalate? 44 mg, Sodium 123, Citrate? 900 mg.?? [facility] Medical History (Updated 03/01/24 @ 14:08 by TIGRE Davis) Renal calculi Injury of tendon of right rotator cuff TONIO (acute kidney injury) Kidney stones History of depression HTN (hypertension) Bursitis of left shoulder Arthritis of left acromioclavicular joint Gout, arthritis Rotator cuff tendonitis Class 2 obesity GERD (gastroesophageal reflux disease) Renal colic Fibromyalgia Osteoarthritis Surgical History History of endometrial ablation Hx of cystoscopy H/O lithotripsy History of esophagogastroduodenoscopy (EGD) Hx of colonoscopy Family History Father Diabetes mellitus Hypercholesteremia Heart attack HTN (hypertension) Mother Diabetes mellitus HTN (hypertension) Heart attack Hypercholesteremia Cardiovascular disease Brother Liver cancer Brother Pancreatic cancer Brother Lymphoma Sister Cervical cancer Sister Cirrhosis of liver Family/Other Cancer Family/Other Ovarian cancer Social History Household Members: Family Are you a primary director day care center to a significant other at home: No Do you presently have visiting nurse or other home services: No Alcohol intake: never Patient Tobacco Use Status: Former Tobacco user Tobacco use type: Cigarette Years Smoked: 25 +/- Second Hand Smoke Exposure: No Current occupational status: disabled Current occupation: rt handed Results Reviewed Results Reviewed: Date of Service: 04/23/24 Procedure(s): XR KUB XR ABDOMEN KUB CLINICAL INDICATION: N20.0 - Calculus of kidney COMPARISON: March 28, 2024. TECHNIQUE: AP view of the abdomen. FINDINGS: No gross calcifications overlapping the kidney shadow. Punctate calcifications in the right lower pelvis likely phlebolith. No intestinal obstruction pattern. Multilevel lumbar spondylosis more conspicuous from L4-5 to L5-S1. Castellvi type III sacralization. Sclerosis and the sacroiliac joints. Vascular clips overlapping the left gluteal region. Spina bifida occulta, S1. IMPRESSION: No gross nephrolithiasis based upon x-ray. Date of Service: 04/23/24 US RETROPERITONEAL LIMITED (RENAL ONLY) CLINICAL INFORMATION: Calculus of kidney. COMPARISON: Renal ultrasound 01/18/2022 and 10/27/2021. Correlated to X-ray abdomen KUB 04/23/2024 and 03/28/2024. CT abdomen and pelvis 01/19/2023. TECHNIQUE: Real-time imaging of the kidneys using grayscale and color Doppler technique. FINDINGS: Submitted for interpretation on April 30, 2024. RIGHT KIDNEY: 11 x 5 x 5 cm (SAG x AP x TRV). The kidney is normal in size, contour, and echogenicity. Renal cortical thickness is normal. No hydronephrosis. No gross solid or cystic lesion. Normal flow on color Doppler interrogation of the renal hilum. LEFT KIDNEY: 12 x 5 x 4 cm (SAG x AP x TRV). The kidney is normal in size, contour, and echogenicity. Renal cortical thickness is normal. No hydronephrosis. No solid or cystic lesion.. There are 3 and 5 mm hyperechoic structures in the midportion. There is flow on color Doppler interrogation of the renal hilum. IMPRESSION: Nonobstructing nephrolithiasis, left kidney. No hydronephrosis.. Date of Service: 01/19/23 EXAMINATION: CT ABDOMEN AND PELVIS WITHOUT CONTRAST?? CLINICAL INFORMATION: Renal calculus?? COMPARISON: Renal ultrasound from 01/08/2022 FINDINGS: LUNG BASES: The visualized lung bases are unremarkable.?? LIVER, GALLBLADDER, AND BILIARY TREE: The liver is normal in size, shape, and attenuation. No focal hepatic lesion or biliary ductal dilatation is present. Gallbladder is contracted but revealed no cholelithiasis?? PANCREAS: Unremarkable.?? SPLEEN: Unremarkable.?? ADRENAL GLANDS: Unremarkable.?? KIDNEYS AND URETERS: There are punctate calcifications seen in the collecting system of right kidney as well as nonobstructing lower pole stable since previous study 0.4 cm stone. Left kidney revealed no nephrolithiasis or hydroureteronephrosis.?? BLADDER: Urinary bladder is decompressed revealed no evidence of urolithiasis.?? GASTROINTESTINAL TRACT: The small and large bowel are unremarkable. The appendix is not seen ABDOMINAL WALL: Patient is status post repair of umbilical hernia.?? LYMPH NODES: Normal. VASCULAR: Unremarkable. PELVIC VISCERA: Unremarkable.?? OSSEOUS STRUCTURES: There are degenerative changes facet joints and degenerative changes at the level of L5-S1?? IMPRESSION: 1.? Nephrolithiasis on the right without hydroureteronephrosis. Status post repair of umbilical hernia. 2.? Degenerative changes at the level of L5 Assessment & Plan Assessment & Plan (1) Kidney stones: Code(s): N20.0 - Calculus of kidney Category: Medical Plan Send stone fragments for analysis Patient Instructions: The patient had an opportunity to ask questions regarding treatment plan. The patient expressed understanding and agreement with the above treatment plan. The patient is aware they should contact our office by phone for worsening of their current condition or the appearance of new symptoms. Compliance is encouraged with any medications and followup testing that is ordered. It is a privilege to be allowed the opportunity to participate in the urologic care of your patient. If you have any questions or concerns regarding treatment for the above conditions please do not hesitate to contact me. The office telephone contact is [phone]. This note is constructed in part using voice recognition software. While every effort has been made to ensure accuracy lithographic proofer apprentice errors may have been included. Yours sincerely, Fly Fiore MD Coding Level of Care Code Global (32887) Diagnoses Kidney stones N20.0
== END 2024-05-07 15:54 | disposition home or self-care (01) ==
PROVIDERS: PCP Internal Medicine; Visit Provider Urology
DX: N20.0 Calculus of kidney (principal)
CPT/HCPCS: 99024

== ENCOUNTER 2024-05-07 15:16 | Outpatient (REF) | payer MEDICAID, SELFPAY ==
[2024-05-12 18:29] LABS: Stone Source KIDNEY STONE
== END 2024-05-07 15:17 | disposition home or self-care (01) ==
LOC: HO.LNP 15:16
PROVIDERS: PCP Internal Medicine; Visit Provider Urology
DX: N20.0 Calculus of kidney (principal); Z98.890 Other specified postprocedural states
CPT/HCPCS: 82365; 88300; 99212

== ENCOUNTER 2024-05-08 12:46 | Outpatient (AMB) | payer MEDICAID, SELFPAY ==
--- NOTE | 2024-05-08 12:49 | MHC.OFFVIS ---
Vital Signs 05/08/24 12:55 Height 5 ft 4 in Weight 248 lb 7.375 oz BMI 42.6 BP 140/98 H Blood Pressure Location Rt brachial Position Sitting Pulse 107 H Pulse Source Pulse Oximeter Pulse Oximetry (%) 98 Oxygen Delivery Method Room Air Intake Visit Reasons: FMS/LVM Intake Note: Patient presents for FMS. Turning And Beading Machine Operator Required: Yes Turning And Beading Machine Operator Language: Transportation Planning Technician Services: Turning And Beading Machine Operator Present Turning And Beading Machine Operator Name: Rick [id number] Information Interpreted: non-clinical & clinical Allergies cephalexin [From KEFLEX] Allergy (Intermediate, Verified 05/08/24 12:54) RASH diazepam [From VALIUM] Allergy (Intermediate, Verified 05/08/24 12:54) Anxiety menthol [From BenGay] Allergy (Intermediate, Verified 05/08/24 12:54) Rash methyl salicylate [From BenGay] Allergy (Intermediate, Verified 05/08/24 12:54) Rash Penicillins Allergy (Intermediate, Verified 05/08/24 12:54) RASH Medication List - Last Reconciled 05/08/24 by Matias Heller MD allopurinol 100 mg PO DAILY 90 days buspirone 5 mg PO DAILY cholecalciferol (vitamin D3) (Vitamin D3) 1 cap PO DAILY clonazepam 1 tab PO DAILY PRN cyclobenzaprine 5 mg PO TID doxepin 10 mg PO BEDTIME duloxetine (Cymbalta) 60 mg PO BID fluticasone propionate 50 mcg/actuation 2 sprays intranasal DAILY folic acid 1 mg PO DAILY hydrochlorothiazide 12.5 mg PO DAILY lansoprazole 30 mg PO DAILY linaclotide (Linzess) 290 mcg PO DAILY 90 days loratadine 10 mg PO DAILY magnesium oxide 400 mg PO BID meclizine 25 mg PO TID PRN meloxicam 15 mg PO DAILY PRN metoclopramide HCl 5 mg PO TID ondansetron 4 mg PO Q8H PRN oxycodone 5 mg PO .q6h -q8h PRN pravastatin 40 mg PO DAILY pyridoxine (vitamin B6) 100 mg PO DAILY sennosides (senna) 17.2 mg (2 x 8.6 mg) PO BID PRN sumatriptan succinate 5 mg PO ONCE PRN topiramate 50 mg PO BID tramadol 50 mg PO TID PRN HPI Comments Details: 58-year-old female with fibromyalgia returns for follow-up. She states that she continues to have diffuse pain everywhere. She has lowered her tramadol to 3 tablets a day. Today her right hip in particular wrists bothering her. Denies any recent trauma [facility] Medical History Renal calculi Injury of tendon of right rotator cuff TONIO (acute kidney injury) Kidney stones History of depression HTN (hypertension) Bursitis of left shoulder Arthritis of left acromioclavicular joint Gout, arthritis Rotator cuff tendonitis Class 2 obesity GERD (gastroesophageal reflux disease) Renal colic Fibromyalgia Osteoarthritis Surgical History History of endometrial ablation Hx of cystoscopy H/O lithotripsy History of esophagogastroduodenoscopy (EGD) Hx of colonoscopy Family History Father Diabetes mellitus Hypercholesteremia Heart attack HTN (hypertension) Mother Diabetes mellitus HTN (hypertension) Heart attack Hypercholesteremia Cardiovascular disease Brother Liver cancer Brother Pancreatic cancer Brother Lymphoma Sister Cervical cancer Sister Cirrhosis of liver Family/Other Cancer Family/Other Ovarian cancer Social History Household Members: Family Are you a primary healthcare customer service to a significant other at home: No Do you presently have visiting nurse or other home services: No Alcohol intake: never Patient Tobacco Use Status: Former Tobacco user Tobacco use type: Cigarette Years Smoked: 25 +/- Second Hand Smoke Exposure: No Current occupational status: disabled Current occupation: rt handed Review of Systems Musc Reports myalgias and Reports arthralgias Physical Exam Vital Signs: Last Vital Signs Pulse 107 H 05/08/24 12:55 BP 140/98 H 05/08/24 12:55 Pulse Ox 98 05/08/24 12:55 Oxygen Delivery Method Room Air 05/08/24 12:55 BMI result Body Mass Index 42.6 Const General: cooperative and healthy appearing Nutritional Appearance: obese morbidly obese Orientation/consciousness: patient oriented x3 Limitations: no limitations HEENT Head: Yes normocephalic and Yes atraumatic Mouth: moist mucous membranes Resp Effort & Inspection: normal respiratory effort and able to speak in complete sentences Neuro General: patient oriented x3 Extrem Other: Diffuse fibromyalgia tender points Bilateral trochanteric bursa area tenderness R>L with negative Suad's test bilaterally Assessment & Plan Assessment & Plan (1) Degenerative arthritis of lumbar spine: Code(s): M47.816 - Spondylosis without myelopathy or radiculopathy, lumbar region Category: Medical Qualifiers: Spinal osteoarthritis complication: other spinal osteoarthritis Qualified Code(s): M47.896 - Other spondylosis, lumbar region Plan: Evaluated by Pain Management in the past. She had steroid injections. Patient did not want to pursue further injections as she felt that steroids gave her side effects. Last visit we lowered her tramadol 4 tabs a day to 3 tablets a day. She can continue with this regimen at this time Discussed with patient that the new weight loss meds such as GLP-1 agonists be helpful for her arthritis and generalized pain. Advised patient to discuss with PCP (2) Fibromyalgia, primary: Code(s): M79.7 - Fibromyalgia Category: Medical Plan: On cyclobenzaprine and Cymbalta. Prescribed by other providers. Advised patient that she is on numerous medications and there is a risk of medication interaction and potential additive sedating side effects. We have lowered tramadol from 4 tabs a day to 3 tablets a day. Follow-up in 6 months (3) Greater trochanteric bursitis of both hips: Code(s): M70.61 - Trochanteric bursitis, right hip; M70.62 - Trochanteric bursitis, left hip Category: Medical Plan: Discussed different treatment options. Patient is not interested in physical therapy or injections. I provided patient with a printout of home exercises Plan I spent 15 minutes reviewing patient's chart, evaluating patient, counseling patient and documenting in the chart Coding Level of Care Code Est Pt Level 3 (99970) Diagnoses Other osteoarthritis of spine, lumbar region M47.896 Spinal osteoarthritis complication: other spinal osteoarthritis Fibromyalgia, primary M79.7 Greater trochanteric bursitis of both hips M70.61; M70.62
[2024-05-08 12:55] VITALS: BP 140/98; PULSE 107; O2SAT 98; BMI 42.6
== END 2024-05-08 13:15 | disposition home or self-care (01) ==
PROVIDERS: PCP Internal Medicine; Visit Provider Student in an Organized Health Care Education/Training Program
DX: M47.896 Other spondylosis, lumbar region (principal); M79.7 Fibromyalgia; M70.61 Trochanteric bursitis, right hip; M70.62 Trochanteric bursitis, left hip
CPT/HCPCS: 99213

== ENCOUNTER → 2024-05-08 12:46 | Outpatient (BNVA) | payer MEDICAID, SELFPAY | PROVIDERS: PCP Internal Medicine; Visit Provider Student in an Organized Health Care Education/Training Program | DX: M79.7 Fibromyalgia (principal); M47.816 Spondylosis without myelopathy or radiculopathy, lumbar region; M47.896 Other spondylosis, lumbar region; M70.61 Trochanteric bursitis, right hip; M70.62 Trochanteric bursitis, left hip | CPT/HCPCS: 99212 ==

== ENCOUNTER 2024-07-05 10:55 | Outpatient (AMB) | payer MEDICAID, SELFPAY ==
--- NOTE | 2024-07-05 10:55 | MHC.OFFVIS ---
Intake Visit Reasons: 8w/stone analysis (set) Intake Note: Patient is present via telehealth-call for 8 week/stone analysis Urology Med:Allopurinol, Vitamin B6 Antibiotic Allergy:Penicillins Blood Thinner:none [employer] Business Intelligence Consultant Required: Yes [employer] Business Intelligence Consultant Language: French Cord Binder Name: Cyndi Perrin, Information Interpreted: non-clinical & clinical Accompanied by: Self / Same As Patient Allergies cephalexin [From KEFLEX] Allergy (Intermediate, Verified 07/05/24 10:59) RASH diazepam [From VALIUM] Allergy (Intermediate, Verified 07/05/24 10:59) Anxiety menthol [From BenGay] Allergy (Intermediate, Verified 07/05/24 10:59) Rash methyl salicylate [From BenGay] Allergy (Intermediate, Verified 07/05/24 10:59) Rash Penicillins Allergy (Intermediate, Verified 07/05/24 10:59) RASH Medication List - Last Reconciled 07/05/24 by Fly Fiore MD allopurinol 100 mg PO DAILY 90 days buspirone 5 mg PO DAILY cholecalciferol (vitamin D3) (Vitamin D3) 1 cap PO DAILY clonazepam 1 tab PO DAILY PRN cyclobenzaprine 5 mg PO TID doxepin 10 mg PO BEDTIME duloxetine (Cymbalta) 60 mg PO BID fluticasone propionate 50 mcg/actuation 2 sprays intranasal DAILY folic acid 1 mg PO DAILY hydrochlorothiazide 12.5 mg PO DAILY lansoprazole 30 mg PO DAILY linaclotide (Linzess) 290 mcg PO DAILY 90 days loratadine 10 mg PO DAILY magnesium oxide 400 mg PO BID meclizine 25 mg PO TID PRN meloxicam 15 mg PO DAILY PRN metoclopramide HCl 5 mg PO TID ondansetron 4 mg PO Q8H PRN oxycodone 5 mg PO .q6h -q8h PRN pravastatin 40 mg PO DAILY pyridoxine (vitamin B6) 100 mg PO DAILY sennosides (senna) 17.2 mg (2 x 8.6 mg) PO BID PRN sumatriptan succinate 5 mg PO ONCE PRN topiramate 50 mg PO BID tramadol 50 mg PO TID PRN HPI Comments Details: 07/05/24--S/P right ESWL--reviewed KUB - 04/23/24- no radioopaque calculi visualized. 04/23/24- renal US - reports hyperechoic 3mm and 5 mm left pass renal stones. Discussed stone analysis--[id number]. 05/07/24--S/P right ESWL--reviewed KUB - 04/23/24- no radioopaque calculi visualized. 04/23/24- renal US - reports hyperechoic 3mm and 5 mm left pass renal stones. I have reviewed the results with the patient as well as reviewed the KUB films which show the right kidney stone is no longer visualized there was not a stone visualized in the left kidney previously on KUB or CT scan findings. I discussed with the patient that the Left kidney hyperechoic findings are less likely renal calculi. She did bring in stone fragments which we will send for stone analysis. 02/13/24--Milady is a 59-year-old female who presents today via Tele-health visit for one year follow-up for kidney stones. She denies renal colic symptoms. She was last evaluated 02/11/2023- for CT scan results. I reviewed the abdomen/pelvis CT results from 01/19/2023 revealed punctate calcifications seen in the collecting system of right kidney as well as nonobstructing lower pole stone which has been stable 0.4 cm stone. She has been taking vitamin B6 and allopurinol 100 mg. She denies any urinary symptoms at this time. Discussed treatment options to include ESWL.Discussed risks to include but not limited to, blood in the urine, bruising to the skin, kidney hematoma, possible need for another procedure if a stone fragment obstructs the ureter while passing, possible need to repeat procedure if stone is not completely fragmented. Results: Imagings: abdomen/pelvis CT results from 01/19/2023 revealed punctate calcifications seen in the collecting system of right kidney as well as nonobstructing lower pole stable since previous study 0.4 cm stone renal sono, 01/18/22- multiple right kidney stones the largest 1 cm stone, KUB - 04/06/22-Probable small 3 mm right lower pole renal stone. Labs: 24 hr urine Total volume? 1.65 L, Calcium? 108 mg; Oxalate? 44 mg, Sodium 123, Citrate? 900 mg.?? PFSH Medical History Renal calculi Injury of tendon of right rotator cuff TONIO (acute kidney injury) Kidney stones History of depression HTN (hypertension) Bursitis of left shoulder Arthritis of left acromioclavicular joint Gout, arthritis Rotator cuff tendonitis Class 2 obesity GERD (gastroesophageal reflux disease) Renal colic Fibromyalgia Osteoarthritis Surgical History History of endometrial ablation Hx of cystoscopy H/O lithotripsy History of esophagogastroduodenoscopy (EGD) Hx of colonoscopy Family History Father Diabetes mellitus Hypercholesteremia Heart attack HTN (hypertension) Mother Diabetes mellitus HTN (hypertension) Heart attack Hypercholesteremia Cardiovascular disease Brother Liver cancer Brother Pancreatic cancer Brother Lymphoma Sister Cervical cancer Sister Cirrhosis of liver Family/Other Cancer Family/Other Ovarian cancer Social History Household Members: Family Are you a primary care consultant to a significant other at home: No Do you presently have visiting nurse or other home services: No Alcohol intake: never Patient Tobacco Use Status: Former Tobacco user Tobacco use type: Cigarette Years Smoked: 25 +/- Second Hand Smoke Exposure: No Current occupational status: disabled Current occupation: rt handed Telehealth Telehealth Telehealth Platform: Telephone Location of provider rendering services: practice address Location of patient: address on file Patient Identification confirmed using: Name, : Yes Telehealth method: voice only Patient verbally consented to treatment: Yes Patient verbally consented to billing insurance company: Yes Patient informed of any privacy concerns related to visit: Yes Minutes spent on Phone/Video with Pt.: 13 Results Reviewed Results Reviewed: TAMEKA: 05/07/24160 STATUS: COMP REQ : [id number] RECD: 05/08/[address]: Fly Fiore MD COMP: 05/12/24 ENTERED: 05/08/[address]: Jayda Patiño MD ORDERED: Kidney Stone QUERIES: Kidney Stone Source: KIDNEYSTONES Test Result Flag Reference Component 1 SEE NOTE Calcium Oxalate Dihydrate (Weddellite) 20% Calcium Oxalate Monohydrate (Whewellite) 80% Stone Weight 0.050 g This test was developed and its analytical performance characteristics have been determined by [employer]. It has not been cleared or approved by FDA. This assay has been validated pursuant to the CLIA regulations and is used for clinical purposes. THIS TEST WAS PERFORMED AT: [employer] [address] [place] [address] AMRIT MCGREGOR MD,PHD,KECIA Stone Source KIDNEY STONE Date of Service: 04/23/24 Procedure(s): XR KUB XR ABDOMEN KUB CLINICAL INDICATION: N20.0 - Calculus of kidney COMPARISON: March 28, 2024. TECHNIQUE: AP view of the abdomen. FINDINGS: No gross calcifications overlapping the kidney shadow. Punctate calcifications in the right lower pelvis likely phlebolith. No intestinal obstruction pattern. Multilevel lumbar spondylosis more conspicuous from L4-5 to L5-S1. Castellvi type III sacralization. Sclerosis and the sacroiliac joints. Vascular clips overlapping the left gluteal region. Spina bifida occulta, S1. IMPRESSION: No gross nephrolithiasis based upon x-ray. Date of Service: 04/23/24 US RETROPERITONEAL LIMITED (RENAL ONLY) CLINICAL INFORMATION: Calculus of kidney. COMPARISON: Renal ultrasound 01/18/2022 and 10/27/2021. Correlated to X-ray abdomen KUB 04/23/2024 and 03/28/2024. CT abdomen and pelvis 01/19/2023. TECHNIQUE: Real-time imaging of the kidneys using grayscale and color Doppler technique. FINDINGS: Submitted for interpretation on April 30, 2024. RIGHT KIDNEY: 11 x 5 x 5 cm (SAG x AP x TRV). The kidney is normal in size, contour, and echogenicity. Renal cortical thickness is normal. No hydronephrosis. No gross solid or cystic lesion. Normal flow on color Doppler interrogation of the renal hilum. LEFT KIDNEY: 12 x 5 x 4 cm (SAG x AP x TRV). The kidney is normal in size, contour, and echogenicity. Renal cortical thickness is normal. No hydronephrosis. No solid or cystic lesion.. There are 3 and 5 mm hyperechoic structures in the midportion. There is flow on color Doppler interrogation of the renal hilum. IMPRESSION: Nonobstructing nephrolithiasis, left kidney. No hydronephrosis.. Date of Service: 01/19/23 EXAMINATION: CT ABDOMEN AND PELVIS WITHOUT CONTRAST?? CLINICAL INFORMATION: Renal calculus?? COMPARISON: Renal ultrasound from 01/08/2022 FINDINGS: LUNG BASES: The visualized lung bases are unremarkable.?? LIVER, GALLBLADDER, AND BILIARY TREE: The liver is normal in size, shape, and attenuation. No focal hepatic lesion or biliary ductal dilatation is present. Gallbladder is contracted but revealed no cholelithiasis?? PANCREAS: Unremarkable.?? SPLEEN: Unremarkable.?? ADRENAL GLANDS: Unremarkable.?? KIDNEYS AND URETERS: There are punctate calcifications seen in the collecting system of right kidney as well as nonobstructing lower pole stable since previous study 0.4 cm stone. Left kidney revealed no nephrolithiasis or hydroureteronephrosis.?? BLADDER: Urinary bladder is decompressed revealed no evidence of urolithiasis.?? GASTROINTESTINAL TRACT: The small and large bowel are unremarkable. The appendix is not seen ABDOMINAL WALL: Patient is status post repair of umbilical hernia.?? LYMPH NODES: Normal. VASCULAR: Unremarkable. PELVIC VISCERA: Unremarkable.?? OSSEOUS STRUCTURES: There are degenerative changes facet joints and degenerative changes at the level of L5-S1?? IMPRESSION: 1.? Nephrolithiasis on the right without hydroureteronephrosis. Status post repair of umbilical hernia. 2.? Degenerative changes at the level of L5 Assessment & Plan Assessment & Plan (1) History of kidney stones: Code(s): Z87.442 - Personal history of urinary calculi Category: Medical (2) Hyperoxaluria: Code(s): R82.992 - Hyperoxaluria Category: Medical Plan US renal BI 10 Months Z87.442 - Personal history of urinary calculi, R82.992 - Hyperoxaluria ? Medications ? Refilled pyridoxine (vitamin B6) 100 mg PO DAILY 90 tabs 3RF allopurinol 100 mg PO DAILY Orders: Orders US renal BI 10 Months Z87.442 - Personal history of urinary calculi, R82.992 - Hyperoxaluria Medications: Refilled pyridoxine (vitamin B6) 100 mg PO DAILY 90 tabs 3RF allopurinol 100 mg PO DAILY 90 tabs 3RF 90 days N20.1 - Calculus of ureter, N20.0 - Calculus of kidney Patient Instructions: The patient had an opportunity to ask questions regarding treatment plan. The patient expressed understanding and agreement with the above treatment plan. The patient is aware they should contact our office by phone for worsening of their current condition or the appearance of new symptoms. Compliance is encouraged with any medications and followup testing that is ordered. It is a privilege to be allowed the opportunity to participate in the urologic care of your patient. If you have any questions or concerns regarding treatment for the above conditions please do not hesitate to contact me. The office telephone contact is [phone]. This note is constructed in part using voice recognition software. While every effort has been made to ensure accuracy brim welt sewing machine operator errors may have been included. Yours sincerely, Fly Fiore MD Coding Level of Care Code Tele Est Pt Level 3 (50183) Diagnoses History of kidney stones Z87.442 Hyperoxaluria R82.992
--- OUTSIDE RECORDS SUMMARY | 2024-07-05 13:59 | XMS_ITS | Encounter Summary ---
Author Organization [employer] Address [address] [place] [address] Care Team Providers Care Workflow Developer Name Role Phone Jayda Patiño MD Primary Care Provide r Reason for Visit * Reason Comments Med Refill Encounter Details Date Type Department Care Team ([facility] st Contact Info) Description 04/04/2023 Refill [facility] [address] [place], [place] [phone] Marilee Whittaker MD [address] [place], [place] [phone] Chronic migraine without aura without status migrainosus, not intractable Social History Tobacco Use Types Packs/Day Years Used Date Smoking Tobacco: Never Passive Smoke Exposure: Never Smokeless Tobacco: Never Depression Answer Date Recorded Patient Health Questionnaire-9 Score 14 09/06/2022 Housing Stability Answer Date Recorded What is your housing situation today? I have luma ortiz 02/09/[address] you li ve. Do you have problems with any of the following? None of the above 02/09/2023 Food Insecurity Answer Date Recorded Within the past 12 months, y ou worried that your food would run out before you got money to buy more: Never True 02/09/2023 Within the past 12 months,th e food you bought just didn't last and you didn't have enough money to get more: Never True Transportation Answer Date Recorded In the past 12 months, has l ack of transportation kept you from medical appts, meetings, work or from getting things needed for daily living? No 02/09/2023 Utilities Answer Date Recorded In the past 12 months, has t he electric, gas, oil or water company threatened to shut off services in your home? No 02/09/2023 Depression Answer Date Recorded Patient Health Questionnaire-2 Score 2 09/06/2022 Comments Unknown Sex and Gender Information Value Date Recorded Sex Assigned at Female 02/22/2022 10:15 AM EDT Legal Sex Female 10:15 AM EDT Gender Identity Female 02/22/2022 10:15 AM EDT Sexual Orientation Choose not to disclose 2021 10:15 AM EDT documented as of this encounter Plan of Treatment Upcoming Encounters Date Type Department Care Team (Late st Contact Info) Description 07/12/2024 1:45 PM EDT Office Visit [facility] [address] [place] [phone] Jayda Patiño MD [address] [place] [address] documented as of this encounter Visit Diagnoses Diagnosis Chronic migraine without aura without status migrainosus, not intractable documented in this encounter Additional Health Concerns Assessment Noted Time PHQ-9 Depression Total Score: 14 023 1:24 PM EDT documented as of this encounter Care Teams Workflow Developer Relationship Specialty Start Date End Date Jayda Patiño MD [address] [place] [id number] PCP - General Family Medicine 04/05/19 documented as of this encounter
--- OUTSIDE RECORDS SUMMARY | 2024-07-05 13:59 | XMS_ITS | Encounter Summary ---
Author Organization [facility] Address [address] [place] [address] Care Team Providers Care User Experience Manager Name Role Phone Victor Hugo Rodrigues MD Primary Care Provider Un available Community, Pcp [facility] Jayda Rasheed MD Primary Care Provide r Unavailable Encounter Details Date Type Department Care Team Description 07/30/2016 Cat Operator Report Medical Records [address] [place] [phone] Zay Melton MD Social History Tobacco Use Types Packs/Day Years Used Date Smoking Tobacco: Former Alcohol Use Standard Drinks/Week Comments No 0 (1 standard drink = 0.6 oz pur e alcohol) Sex Assigned at Date Recorded Not on file documented as of this encounter Plan of Treatment Not on file documented as of this encounter Visit Diagnoses Not on filedocumented in this encounter Care Teams User Experience Manager Relationship Specialty Start Date End Date Victor Hugo Rodrigues MD PCP - General Internal Medicine 12/22/15 [facility], Pcp PCP - General Internal Medicine 09/23/16 06/15/23 Jayda Rasheed MD PCP - General Internal Medicine 06/16/23 documented as of this encounter
--- OUTSIDE RECORDS SUMMARY | 2024-07-05 13:59 | XMS_ITS | Encounter Summary ---
Author Organization [employer] Address [address] [place] [address] Care Team Providers Care Mill Operator Helper Name Role Phone Jayda Patiño MD Primary Care Provide r Reason for Visit * Reason Comments Med Refill Encounter Details Date Type Department Care Team ([facility] st Contact Info) Description 04/29/2023 Refill [facility] [address] [place], [place] [phone] Marilee Whittaker MD [address] [place], [place] [phone] Hyperlipidemia, unspecified hyperlipidemia type; Chronic migraine without aura without status migrainosus, not intractable; Chronic rhinitis Social History Tobacco Use Types Packs/Day Years [...] Description 07/12/2024 1:45 PM EDT Office Visit [facility] [address] [place] [address] Jayda Patiño MD [address] [place] [address] documented as of this encounter Visit Diagnoses Diagnosis Hyperlipidemia, unspecified hyperlipidemia type Chronic migraine without aura without status migrainosus, not intractable Chronic rhinitis documented in this encounter Additional Health Concerns Assessment Noted Time PHQ-9 Depression Total Score: 14 023 1:24 PM EDT documented as of this encounter Care Teams Mill Operator Helper Relationship Specialty Start Date End Date Jayda Patiño MD [address] [place] [address] PCP - General Family Medicine 04/05/19 documented as of this encounter
--- OUTSIDE RECORDS SUMMARY | 2024-07-05 13:59 | XMS_ITS | Encounter Summary ---
Author Organization [employer] Address [address] [place] [address] Care Team Providers Care Protocol Officer Name Role Phone Jayda Patiño MD Primary Care Provide r Reason for Visit * Reason Comments Med Refill Encounter Details Date Type Department Care Team ([facility] st Contact Info) Description 01/14/[address] [facility] [address] [place], [place] [phone] Celena Farias DO [address] [place] [address] Chronic rhinitis Social History Tobacco Use Types Packs/Day Years Used Date Smoking Tobacco: Never Passive Smoke Exposure: Never Smokeless Tobacco: Never Alcohol Use Standard Drinks/Week Comments Never 0 (1 standard drink = 0.6 oz pur e alcohol) Depression Answer Date Recorded Patient Health Questionnaire-9 Score 14 06/10/2023 Patient Health Questionnaire-9 Score 14 06/10/2023 Last PHQ-9: Questionnaire Data Not on file 0 06/10/2023 Housing Stability Answer Date Recorded What is [...] Answer Date Recorded Patient Health Questionnaire-2 Score 4 06/10/2023 Comments Unknown Sex and Gender Information Value [...] Description 07/12/2024 1:45 PM EDT Office Visit [facility] [address] [place] [phone] Jayda Patiño MD [address] [place] [address] documented as of this encounter Visit Diagnoses Diagnosis Chronic rhinitis documented in this encounter Additional Health Concerns Assessment Noted Time PHQ-9 Depression Total Score: 14 024 10:05 AM EST documented as of this encounter Care Teams Protocol Officer Relationship Specialty Start Date End Date Jayda Patiño MD [address] [place] [phone] PCP - General Family Medicine 04/05/19 documented as of this encounter
--- OUTSIDE RECORDS SUMMARY | 2024-07-05 13:59 | XMS_ITS | Encounter Summary ---
Author Organization [employer] Address [address] [place] [address] Care Team Providers Care Dyeing Machine Tender Name Role Phone Jayda Patiño MD Primary Care Provide r Reason for Visit * Reason Comments Med Refill Encounter Details Date Type Department Care Team ([facility] st Contact Info) Description 03/24/2023 Refill [facility] [address] [place], [place] [phone] Jayda Patiño MD [address] [place] [address] Vitamin D deficiency Social History Tobacco Use Types Packs/Day Years [...] Description 07/12/2024 1:45 PM EDT Office Visit [facility] [address] [place] [phone] Jayda Patiño MD [address] [place] [phone] documented as of this encounter Visit Diagnoses Diagnosis Vitamin D deficiency documented in this encounter Additional Health Concerns Assessment Noted Time PHQ-9 Depression Total Score: 14 023 1:24 PM EDT documented as of this encounter Care Teams Dyeing Machine Tender Relationship Specialty Start Date End Date Jayda Patiño MD [address] [place] [id number] PCP - General Family Medicine 04/05/19 documented as of this encounter
--- OUTSIDE RECORDS SUMMARY | 2024-07-05 13:59 | XMS_ITS | Encounter Summary ---
Author Organization [facility] [employer] [facility] [employer] Address [address] [place] [address] Care Team Providers Care Housekeeping Assistant Name Role Phone Jayda Patiño MD Primary Care Provide r Encounter Details Date Type Department Care Team ([facility] st Contact Info) Description 02/02/2023 Abstract [facility] [address] [place] [address] Jayda Patiño MD [address] [place] [address] Social History Tobacco Use Types Packs/Day Years Used Date Smoking Tobacco: Never Passive Smoke Exposure: Never Smokeless Tobacco: Never Depression Answer Date Recorded Patient Health Questionnaire-9 Score 14 09/06/2022 Housing Stability Answer Date Recorded What is your housing situation today? I have luma ortiz 01/30/[address] you li ve. Do you have problems with any of the following? None of the above 01/30/2023 Food Insecurity Answer Date Recorded Within the past 12 months, y ou worried that your food would run out before you got money to buy more: Never True 01/30/2023 Within the past 12 months,th e food you bought just didn't last and you didn't have enough money to get more: Never True 11/2022 Transportation Answer Date Recorded In the past 12 months, has l ack of transportation kept you from medical appts, meetings, work or from getting things needed for daily living? No 01/30/2023 Utilities Answer Date Recorded In the past 12 months, has t he electric, gas, oil or water company threatened to shut off services in your home? No 01/30/2023 Depression Answer Date Recorded Patient Health Questionnaire-2 [...] Description 07/12/2024 1:45 PM EDT Office Visit [facility] [address] [place], [place] [phone] Jayda Patiño MD [address] [place] [address] documented as of this encounter Procedures Procedure Name Priority Date/Time Associated Diagnosis Comments COLONOSCOPY Routine 05/10/2013 documented in this encounter Results * Colonoscopy (05/10/2013) Colonoscopy Normal Normal Narrative Donna Bal - 05/10/2013 Recommended 10 year follow up us Historical Provider HEALTH MAINTENANCE Final Result documented in this encounter Visit Diagnoses Not on filedocumented in this encounter Additional Health Concerns Assessment Noted Time PHQ-9 Depression Total Score: 14 023 1:24 PM EDT documented as of this encounter Care Teams Housekeeping Assistant Relationship Specialty Start Date End Date Jayda Patiño MD [address] [place] [phone] PCP - General Family Medicine 04/05/19 documented as of this encounter
--- OUTSIDE RECORDS SUMMARY | 2024-07-05 13:59 | XMS_ITS | Clinical Summary ---
Author Organization [employer] Address [address] [place] [address] Care Team Providers Care Nurse Anesthetist Name Role Phone Jayda Patiño MD Primary Care Provide r Allergies Active Allergy Reactions Criticality Noted Date Comments Cephalexin 08/18/2017 Diazepam 05/03/2013 Other reaction(s): bad reaction - trouble breathi Metronidazole Dermatitis 01/05/2016 nitroimidazoles Penicillins 04/27/2010 Other reaction(s): unspecified Medications busPIRone (Buspar) 5 MG tablet YESSENIA 1 TABLETA DOS VECES AL NORI Active allopurinol (Zyloprim) 100 MG tablet Take 100 mg by mouth Once per day. Active doxepin (SINEquan) 10 MG capsule TAKE 1 CAPSULE BY MOUTH AT BEDTIME FOR SLEEP PARA DORMIR Active clonazePAM (KlonoPIN) 0.5 MG tablet TAKE 1 TABLET BY MOUTH TWICE A WEEK NEEDED Active lansoprazole (Prevacid) [address] capsule Take 30 mg by mouth Once per day. Active DULoxetine (Cymbalta) [address] capsule TAKE 1 CAPSULE BY MOUTH ONCE A DAY YESSENIA 1 CAPSULA AL NORI Active metoclopramide (Reglan) 5 MG tablet Take 5 mg by mouth 3 times daily. Active magnesium oxide (Mag-Ox) 400 (240 Mg) MG tablet Take 400 mg by mouth 2 times daily. Active Linzess 290 MCG capsule Take 290 mcg by mouth Once per day. Active traMADol (Ultram) 50 MG tablet TAKE 1 TABLET ORALLY EVERY 8 HOURS NEEDED FOR PAIN Active Senna-Time 8.6 MG tablet TAKE 2 TABLETS ORALLY 2 TIMES A DAY NEEDED FOR FOR CONSTIPATION Active SUMAtriptan (Imitrex) 25 MG tabletIndications :Migraine without aura, not refractory TAKE 1 TAB ORALLY AFTER MIGRAINE ONSET MAY REPEAT AFTER 2HRS IF HEADACHE RETURNS,MAX 200MG IN 24HRS 9 tablet 3 Active folic acid (Folvite) 1 MG tabletIndications :Health care maintenance Take 1 tablet (1,000 mcg) by mouth Once per day. 90 tablet 1 024 Active hydroCHLOROthiazi de 12.5 MG tabletIndications :Hypertension, unspecified type TAKE 1 TABLET BY MOUTH EVERY DAY IN THE MORNING (12.5 MG) 90 tablet 1 024 Active meclizine (Antivert) 25 MG tabletIndications :Vertigo Take 1 tablet (25 mg) by mouth if needed in the morning, at noon, and at bedtime for dizziness. 30 tablet 024 Active cholecalciferol (D3-1000) 25 MCG (1000 UT) capsuleIndication s:Vitamin D deficiency TAKE 1 CAPSULE BY MOUTH EVERY DAY 90 capsule 1 024 Active loratadine (Claritin) 10 MG tabletIndications :Chronic rhinitis TAKE 1 TABLET BY MOUTH EVERY DAY NEEDED 90 tablet 1 024 Active pravastatin (Pravachol) 40 MG tabletIndications :Hyperlipidemia, unspecified hyperlipidemia type TAKE 1 TABLET BY MOUTH EVERYDAY 90 tablet 025 Active topiramate 50 MG tabletIndications :Chronic migraine without aura without status migrainosus, not intractable TAKE 1 TABLET BU MOUTH TWICE A DAY 180 tablet 025 Active meloxicam (Mobic) 15 MG tabletIndications :Polyarthralgia TOME 1 TABLETA POR VIA ORAL TODOS [place] 30 tablet 1 025 Active meloxicam (Mobic) 15 MG tabletIndications :Polyarthralgia Take 1 tablet (15 mg) by mouth Once per day. 30 tablet 1 024 2024 Discontinued Active Problems Problem Noted Date Diagnosed Date COVID-19 virus infection 04/12/2024 Assessment & Plan (04/12/2024 1:45 PM EST): Drink plenty of fluids and rest Acetaminophen PRN Patient declines medications for COVID 19 infection Polyarthralgia 04/12/2024 Pain of left heel 06/10/2023 Assessment & Plan (06/14/2023 4:52 PM EST): Exercises provided Podiatry referral Chronic bilateral low back pain without sciatica 06/10/2023 Vertigo 06/10/2023 Chronic left ear pain 06/10/2023 Assessment & Plan (06/14/2023 4:50 PM EST): ENT referral Elevated blood pressure reading 06/02/2023 06/02/2023 Chronic pain of both shoulders 09/06/2022 Essential hypertension 09/06/2022 Assessment & Plan (04/12/2024 1:44 PM EST): I advised: - Aerobic exercise to reduce BP. Initial goal of 30 min walk 3-5x/week. Increase as tolerated. - low-sodium diet (goal: <2g/day) and heart healthy diet such as DASH to reduce BP and prevent ASCVD. - Home BP monitoring 1-2 x day with goal of <140/90. - Seek immediate medical attention for chest pain, palpitations, SOB, syncope, or sudden changes in mental status. - Do not change or discontinue current prescriptions without first consulting health care provider Assessment & Plan (06/14/2023 4:51 PM EST): Maintenance: BMP: up to date Lipid Panel: up to date ASCVD Risk: on pravastatin 40mg daily - Aerobic exercise to reduce BP. Initial goal of 30 min walk 3-5x/week. Increase as tolerated. - low-sodium diet (goal: <2g/day) and heart healthy diet such as DASH to reduce BP and prevent ASCVD. - Home BP monitoring 1-2 x day with goal of <140/90. - Seek immediate medical attention for chest pain, palpitations, SOB, syncope, or sudden changes in mental status. - Do not change or discontinue current prescriptions without first consulting health care provider Assessment & Plan (09/06/2022 1:50 PM EDT): Maintenance: BMP: ordered today Lipid Panel: ordered today ASCVD Risk: Calculate pending updated labs - Aerobic exercise to reduce BP. Initial goal of 30 min walk 3-5x/week. Increase as tolerated. - low-sodium diet (goal: <2g/day) and heart healthy diet such as DASH to reduce BP and prevent ASCVD. - Home BP monitoring 1-2 x day with goal of <140/90. - Seek immediate medical attention for chest pain, palpitations, SOB, syncope, or sudden changes in mental status. - I advise to take her medication every day report back if in spite of taking her medications she continues to have high BP readings - Do not change or discontinue current prescriptions without first consulting health care provider Osteoarthritis of both knees 09/06/2022 Palpitations 09/06/2022 Kidney stone 09/06/2022 Chronic left shoulder pain 09/06/2022 Arthropathy of lumbar facet joint 08/15/2018 Central sleep apnea syndrome 02/24/2018 Obstructive sleep apnea syndrome 02/24/2018 Obesity (BMI 30-39.9) 02/24/2018 Gastroesophageal reflux disease 12/16/2017 Trochanteric bursitis of both hips 12/16/2017 Folic acid deficiency 09/15/2017 Daily headache 08/18/2017 06/02/2023 Achilles tendinitis 08/26/2016 Chronic constipation 07/02/2016 Insomnia 07/02/2016 Fibromyalgia 07/02/2016 Assessment & Plan (06/14/2023 4:51 PM EST): Patient was educated about multidisciplinary approach for her condition, it was advise cardiovascular exercise, maintain hydration, treat anxiety/depression and take medications as directed Assessment & Plan (09/06/2022 1:51 PM EDT): Patient was educated about multidisciplinary approach for her condition, it was advise cardiovascular exercise, maintain hydration, treat anxiety/depression and take medications as directed 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 02/27/2015 Allergic rhinitis 02/27/2015 Constipation 02/27/2015 Vitamin D deficiency 02/27/2015 Migraine without aura, not refractory 02/27/2015 Assessment & Plan (06/14/2023 4:52 PM EST): I advise to avoid migraine triggers like red wine, chocolate, cheese, strong perfumes C/w topiromate 50mg daily and sumatriptan 25mg PRN Obesity 02/27/2015 Recurrent major depression 02/27/2015 Chronic abdominal pain 02/27/2015 Chronic pain syndrome 02/27/2015 06/02/2023 Encounters Date Type Department Care Team Description 07/04/2024 Patient Outreach [facility] [address] [place] [address] Jayda Patiño MD Pre-visit Planning ((Unable to reach for PVP screening, LVM)) 06/13/2024 Refill [facility] [address] [place] [address] Jayda Patiño MD Polyarthralgia 05/15/2024 Refill [facility] [address] [place] [address] Jayda Patiño MD Hyperlipidemia, unspecified hyperlipidemia type; Chronic migraine without aura without status migrainosus, not intractable 05/07/2024 Orders Only GENERIC EXTERNAL DATA DEPARTMENT Provider, Generic External Data 04/23/2024 Orders Only [facility] External Provider, [facility] 04/20/2024 Refill [facility] [address] [place] [address] Jayda Patiño MD Vitamin D deficiency; Chronic rhinitis 04/20/2024 Refill [facility] [address] [place] [address] Celena Farias DO Chronic rhinitis 04/12/2024 1:00 PM EST Office Visit [facility] [address], [place] [phone] Jayda Patiño MD Nasal congestion (Primary Dx); Essential hypertension; COVID-19 virus infection; Migraine without aura, not refractory; Chronic migraine without aura without status migrainosus, not intractable; Health care maintenance; Polyarthralgia; Hypertension, unspecified type; Hyperlipidemia, unspecified hyperlipidemia type; Vertigo 04/12/2024 Travel from Last 3 Months Immunizations Name Administration Dates Next Due Influenza Injectable Quadriv alant Preservative Free IIV4 MDCK 01/07/2022 Influenza injectable quadriv alent IIV4 with preservative 02/27/2015 Influenza injectable quadriv alent preservative free 03/17/2021,01/08/2020,12/16/2018,2017,02/24/2017 Influenza, IIV3, injectable 01/13/2016,1 04/29/2014,03/04/2014,2010 Influenza, Split (incl. ruslan fied surface antigen) 12/26/2012,03/27/2012 TD (adult), 2 Lf tetanus tox oid, preservative free, adsorbed 05/18/2005,01/25/1995 Tdap 06/05/2012 Zoster, live 08/15/2018 Family History Medical History Relation Name Comments Lymphoma Brother Pancreatic cancer Brother Heart disease Father Hypertension Father Prostate cancer Father Diabetes Mother Heart disease Mother Hypertension Mother Uterine cancer Mother Diabetes Sister Uterine cancer Sister Relation Name Status Comments Brother Father Mother Sister Social History Tobacco Use Types Packs/Day Years Used Date Smoking Tobacco: Never Passive Smoke Exposure: Never Smokeless Tobacco: Never Tobacco Cessation:Counseling Given: Not Answered Alcohol Use Standard Drinks/Week Comments Never 0 [...] not to disclose 2021 10:15 AM EDT Last Filed Vital Signs Vital Sign Reading Time Taken Comments Blood Pressure 152/91 04/12/2024 1:12 PM EST Pulse 100 04/12/2024 1:12 PM EST Temperature 36.1 ??C (97 ??F) 04/12/2024 1:12 PM EST Respiratory Rate 20 04/12/2024 1:12 PM EST Oxygen Saturation 100% 04/12/2024 1:12 PM EST Inhaled Oxygen Concentration - - Weight 112 kg (246 lb) 04/12/2024 1:12 PM EST Height 160 cm (5' 3 ) 04/12/2024 1:12 PM EST Body Mass Index 43.58 04/12/2024 1:12 PM EST Plan of Treatment Upcoming Encounters Date Type Department Care Team (Late st Contact Info) Description 07/12/2024 1:45 PM EDT Office Visit [facility] [address] [place] [address] Jayda Patiño MD [address] [place] [address] Health Maintenance Due Date Last Done Comments CT Colonography 1966 FIT DNA/Cologuard 1965 FIT 1965 FOBT 1965 HIV Screening 1965 Sigmoidoscopy 1965 Alcohol/Substance Use Screening 1978 Hepatitis B Vaccines (1 of 3 - 19+ 3-dose series) 1985 Pneumococcal Vaccine: 50+ Years (1 of 1 - PCV) 2016 Zoster Vaccines (2 of 3) 10/10/2018 08/15/2018 DTaP/Tdap/Td Vaccines (2 - Td or Tdap) 06/05/2022 06/05/2012, 05/18/2005, 01/25/1995 Colonoscopy 05/10/2023 05/10/2013 Colorectal Cancer Screening 05/10/2023 SDOH Screening 09/07/2023 09/06/2022 Depression Monitoring (PHQ-9) 12/09/2023 06/10/2023, 06/10/2023 COVID-19 Vaccine ( season) 2023 Influenza Vaccine (#1) 2023 , 03/17/2021, 01/08/2020, Additional history exists Depression Screening 06/10/2024 06/10/2023, 06/10/19 Mammogram 01/23/2025 01/24/2024, 12/25, 01/13/2022, Additional history exists Tobacco Screening 04/12/2025 04/12/2024 Diabetes: Hemoglobin A1C 04/23/2025 024, 09/06/2022, 01/11/2022, Additional history exists Cervical Cancer Screening 06/30/2028 HPV/Cotest 06/30/2028 07/01/2023, 06/14/2019 Pap Smear 06/30/2028 07/01/2023 Lipid Panel 04/23/2029 04/23/2024, 0508/2022, 01/11/2022, Additional history exists RSV Patients and Patients Aged 60 years or older (1 - 1-dose 75+ series) 2041 Hepatitis C Screening Completed 09/16/2020 HIB Vaccines Aged Out No longer eligi ble based on patient's age to complete this topic HPV Vaccines Aged Out No longer eligi ble based on patient's age to complete this topic Hepatitis A Vaccines Aged Out No long er eligible based on patient's age to complete this topic IPV Vaccines Aged Out No longer eligi ble based on patient's age to complete this topic Meningococcal Vaccine Aged Out No stephane haroon eligible based on patient's age to complete this topic RSV under 20 months Aged Out No longe r eligible based on patient's age to complete this topic Rotavirus Vaccines Aged Out No longer eligible based on patient's age to complete this topic Procedures Procedure Name Priority Date/Time Associated Diagnosis Comments STONE ANALYSIS W/ IMAGE Routine 05/07/2024 4:01 PM EST GROSS EXAM WITHOUT SLIDES Routine 05/07/2024 4:01 PM EST TSH W/REFLEX TO FT4 Routine 04/23/2024 1 :38 PM EST Essential hypertension VITAMIN D,25-OH,TOTAL,IA Routine 04/23/2024 1:38 PM EST Essential hypertension LIPID PANEL, STANDARD Routine 04/23/2024 1:38 PM EST Essential hypertension HEMOGLOBIN A1C Routine 04/23/2024 1:38 PM EST Essential hypertension COMPREHENSIVE METABOLIC PANEL Routine 04/23/2024 1:38 PM EST Essential hypertension CBC WITH AUTO DIFFERENTIAL Routine 04/23/2024 1:38 PM EST Essential hypertension US RENAL BI Routine 04/23/2024 12:54 PM EST XR KUB AND UPRIGHT 2 VIEWS Routine 04/23/2024 12:42 PM EST POCT RAPID COVID ANTIGEN Routine 04/12/2024 1:32 PM EST Nasal congestion POC SRINIVASAN ID NOW STREP A Routine 04/12/2024 1:32 PM EST Nasal congestion POCT INFLUENZA A (ID NOW RAPID MOLECULAR) Routine 04/12/2024 1:32 PM EST Nasal congestion POCT INFLUENZA B (ID NOW RAPID MOLECULAR) Routine 04/12/2024 1:31 PM EST Nasal congestion BI MAMMOGRAM SCREENING TOMOSYNTHESIS BILATERAL Routine 01/24/2024 12:35 PM EDT HPV MRNA E6/E7 REFLEX TO HPV 16, 18/45 Routine 07/01/2023 2:31 PM EST PAP SMEAR Routine 07/01/2023 2:31 PM EST Encounter for Papanicolaou smear for cervical cancer screening [facility] HISTORICAL HEPATITIS C AB W/REFL TO HCV RNA, QN, PCR Routine 09/16/2020 11:17 AM EDT HM COLONOSCOPY Routine 05/10/2013 from Last 3 Months or Most Recently Relevant to Health Maintenance Results * Gross Exam without slides (05/07/2024 4:01 PM EST) 05/07/2024 4:01 PM EST 05/08/2024 6:30 AM EST Marge [facility] - 05/10/2024 9:25 AM EST ----- ------- Name: Milady Dean ? Age/Sex: 59/F ? : 1965 Unit#: [id number] ?? Attend Dr: Fly Fiore MD ?Re05/07/24 ?Status: DEP REF ? Location: HO.LNP ?Disch: ? ----- ------- SPEC : [id number] ?RECD: 05/08/24 ? STATUS: ??SOUT ? REQ NUM: [id number] ? TAMEKA: 05/07/24 ? SUBM DR: Fly Fiore MD ? ENTERED: ??05/08/24 ?SP TYPE: Surgical ? OTHR DR: Jayda Patiño MD ? ORDERED: ??GO ? Diagnosis ?? Kidney stones: ??Calculous material. ??Gross examination only. ??Sent for chemical analysis. ?Please see laboratory portion of the EMR for outside report from [facility] ([facility]). ?Clinical History Kidney stones ? Material Received ?? Kidney stones ? Gross Description Received fresh labeled ?kidney stones? are 5 nicholson-black calculi ranging from minute to 0.35 cm, forwarded to [facility] ([facility] for chemical analysis. ??No soft tissue is identified. Gross description only. CEDS Copies To: ?? Fly Fiore MD ?? [facility] ?? [address] [place] [address] [address] ?? [place] [address] ?? [phone] ?? [email or web address] ?? Jayda Patiño MD ?? [facility] ?? [address] [facility] ?? [place] [address] ?? [phone] ----- ------- Signed (signature on file) Eliseo Parikh MD 05/10/2425 ? ----- ------- ? END OF REPORT ? us Generic External Data Provider LAB BLOOD ORDERAB LES Final Result [facility] [address] [place] [address] [phone] * Stone Analysis with Image (05/07/2024 4:01 PM EST) Component 1 SEE NOTE [facility] Comment:Calcium Oxalate Dihy drate (Weddellite) 20%Calcium Oxalate Monohydrate (Whewellite) 80% Stone Weight 0.050 g [facility] Comment:This test was develo ped and its analytical performancecharacteristics have been determined by [facility] ([facility]).It has not been cleared or approved by FDA. This assay hasbeen validated pursuant to the CLIA regulations and is usedfor clinical purposes.THIS TEST WAS PERFORMED AT:[employer] [id number] [place] [address]CDQKIAMRIT MCGREGOR MD,PHD,KECIA Stone Source KIDNEY STONE [facility] 05/07/2024 4:01 PM EST 05/08/2024 9:53 AM EST Narrative [facility] - 05/12/2024 6:29 PM EST KIDNEYSTONES us Generic External Data Provider LAB BLOOD ORDERAB LES Final Result Performing Organization Address [facility]/ZIP Co de Phone Number [facility] [address] [place] [phone] * Vitamin D, 25-Hydroxy, Total, Immunoassay (04/23/2024 1:38 PM EST) Vitamin D 25-OH Total 51.7 >30 ng/mL [facility] Comment:Health Based Referen ce Values*< 20 ng/mL [id number] ng/mL Insufficient> 30 ng/mL Sufficient*[place] MULTANI. N Engl J Med. 2007;357:266-280Care must be taken in interpreting Vitamin D results fromdifferent laboratories and methodologies. Published datademonstrated that results from patients undergoinghemodialysis may show a negative bias when tested withvarious automated 25-OH vitamin D assays when compared toLC-MS/MS.When testing samples from patients whose predominant form ofVitamin D is Vitamin D2, such as patients receiving VitaminD2 supplementation, results that are subtherapeutic shouldbe confirmed with another method such as LC-MS/MS. Blood Venous blood specimen / Unknown 04/23/2024 1:38 PM EST 04/23/2024 4:11 PM EST us Jayda Mcelroy MD LAB BLOOD ORDERABLES Final Result Performing Organization Address [facility]/ZIP Co de Phone Number [facility] [address] [place] [address] [phone] * TSH with Reflex to Free T4 (04/23/2024 1:38 PM EST) Pathologist [facility] TSH reflex Free T4 1.75 0.32 - 4.0 uIU/mL [facility] Blood Venous blood specimen / Unknown 04/23/2024 1:38 PM EST 04/23/2024 4:11 PM EST Jayda Mcelroy MD LAB BLOOD ORDERABLES Final Result [facility] [address] [place] [phone] * (ABNORMAL) CBC auto differential (04/23/2024 1:38 PM EST) [facility] White Blood Count 7.8 4.8 - 10.8 X10*3/uL [facility] Red Blood Count 4.82 4.20 - 5.50 X10*6/uL [facility] Hemoglobin 14.6 12.0 - 16.0 g/dl [facility] Hematocrit 43.5 37.0 - 47.0 % [facility] Mean Corpuscular Volume 90.2 80.0 - 98.0 fL [facility] Mean Corpuscular Hemoglobin 30.3 27.0 - 33.0 pg [facility] Mean Corpuscular HGB Conc 33.6 31.0 - 35.0 g/dl [facility] Red Cell Distribution Width 13.4 11.0 - 16.0 % [facility] Platelet Count 233 160 - 400 X10*3/uL [facility] Mean Platelet Volume 12.7(H) 9.4 - 12.3 fL [facility] Neutrophils Percent Auto 60.4 45 - 73 % [facility] Imm Gran Pct Auto 0.4 0.0 - 0.4 % [facility] Lymphocytes Percent Auto 30.2 20 - 40 % [facility] Monocytes Percent Auto 7.2 2 - 11 % [facility] Eosinophils Percent Auto 1.2 0 - 4 % [facility] Basophils Percent Auto 0.6 0 - 2 % [facility] NRBC Pct Auto 0.0 0.0 - 0.2 /100WBC [facility] Neutrophils Absolute Auto 4.7 2.0 - 8.3 x10*3/uL [facility] Imm Gran Abs Auto 0.03 0.00 - 0.03 X10*3/uL [facility] Lymphocytes Absolute Auto 2.4 1.2 - 4.9 X10*3/uL [facility] Monocytes Absolute Auto 0.6 0.1 - 1.2 X10*3/uL [facility] Eosinophils Absolute Auto 0.1 0.0 - 0.4 X10*3/uL [facility] Basophils Absolute Auto 0.1 0.0 - 0.2 X10*3/uL [facility] NRBC Abs Auto 0.000 0.0 - 0.012 X10*3/uL [facility] Blood Venous blood specimen / Unknown 04/23/2024 1:38 PM EST 04/23/2024 4:11 PM EST us Jayda Mcelroy MD LAB BLOOD ORDERABLES Final Result [facility] [address] [place] [phone] * Hemoglobin A1c (04/23/2024 1:38 PM EST) Hemoglobin A1c 5.8 <6.0 % [facility] Comment:Hemoglobin A1C Refer ence Range Adults: 4.8 - 6.0 % Non diabetic: < 6.0 % Goal: < 7.0 %Additional Action Suggested: > 8.0 %Note: Hemoglobin A1c results are invalid for patients with abnormal amounts of HbF. Blood transfusions may impact the HbA1c concentration in the patient sample. Estimated Average Glucose 120 mg/dL [facility] Comment:eAG = Estimated ave rage glucose which is %A1C expressed asaverage glucose, using the formula of the A5S-NgezonmLgsiksf Glucose study (ADAG), Diabetes Care, Vol.31,#8,2007 Blood Venous blood specimen / Unknown 04/23/2024 1:38 PM EST 04/23/2024 4:11 PM EST us Jayda Mcelroy MD LAB BLOOD ORDERABLES Final Result Performing Organization Address [facility] Co de Phone Number [facility] [address] [place] [phone] * (ABNORMAL) Lipid Panel, Standard (04/23/2024 1:38 PM EST) Triglycerides 319(H) <150 mg/dL [facility] Comment:Desirable Triglyceri de: less than 150 mg/dLBorderline High Triglyceride 150-199 mg/dLHigh Triglyceride: 200-499 mg/dLVery High Triglyceride: greater than or equal to 5OO mg/dL Cholesterol 191 <200 mg/dL [facility] Comment:Desirable Cholestero l: less than 200 mg/dLBorderline High Cholesterol: 200-239 mg/dLHigh Cholesterol: greater than 239 mg/dL LDL Cholesterol Calculated 97 <100 mg/dL [facility] Comment:Desirable LDL: less than 100 mg/dLNear Optimal/Above Optimal LDL: 110- 129 mg/dLBorderline High LDL: 130-159 mg/dLHigh LDL: 160-189 mg/dLVery High LDL: greater than or equal to 190 mg/dL HDL Cholesterol 31(L) >40 mg/dL [facility] Comment:Desirable HDL: great er than 40 mg/dL Note: This HDL assay may give artificially low results in patients with liver disease. Blood Venous blood specimen / Unknown 04/23/2024 1:38 PM EST 04/23/2024 4:11 PM EST us Jayda Mcelroy MD LAB BLOOD ORDERABLES Final Result Performing Organization Address [facility] Co de Phone Number [facility] [address] [place] [phone] * (ABNORMAL) Comprehensive Metabolic Panel (04/23/2024 1:38 PM EST) Sodium 141 135 - 145 mmol/L [facility] Potassium 4.2 3.3 - 5.1 mmol/L [facility] Chloride 108 96 - 108 mmol/L [facility] Carbon Dioxide 27 22 - 29 mmol/L [facility] Anion Gap 10(L) 12 - 20 [facility] Urea Nitrogen (BUN) 20(H) 9 - 16 mg/dL [facility] Creatinine, Serum 1.01 0.5 - 1.4 mg/dL [facility] Estimated Glomerular Filt Rate 56 [facility] Comment:Chronic Kidney Disea se: Estimated GFR < 60 mL/min/1.26x1Qymtni Kidney Disease: Estimated GFR < 15 mL/min/1.73m2 Glucose 134(H) 60 - 115 mg/dL [facility] Calcium 9.4 8.4 - 10.2 mg/dL [facility] Bilirubin, Total 0.4 0.0 - 1.0 mg/dL [facility] Aspartate Amino Transferase 61(H) 5 - 31 U/L [facility] Alanine Aminotransferase 74(H) 0 - 31 U/L [facility] Total Protein 6.9 6.5 - 8.0 g/dL [facility] Albumin Level 4.0 3.5 - 5.0 g/dL [facility] Alkaline Phosphatase 100 39 - 117 U/L [facility] Blood Venous blood specimen / Unknown 04/23/2024 1:38 PM EST 04/23/2024 4:11 PM EST us Jayda Mcelroy MD LAB BLOOD ORDERABLES Final Result [facility] [address] [place] [address] [phone] * US RENAL BI (04/23/2024 12:54 PM EST) Anatomical Region Laterality Modality Abdomen Ultrasound 04/23/2024 12:5 4 PM EST Narrative 04/30/2024 9:20 AM EST ? [facility] ?[address] ?[place] [address] ? Ultrasound Report ? Signed ? Patient: Paul Ruiz,Milady ?MR#: [id number] ?? [id number] ? : 1965 ?Acct:[id number] ? Age/Sex: 59 / F ?ADM Date: 04/23/24 ? Loc: HO.US ? Attending Dr: Fly Fiore MD ? Ordering Physician: Fly Fiore MD ?? Date of Service: 04/23/24 ?? Procedure(s): US renal BI ?? Accession Number(s): [id number] ? cc: Fly Fiore MD; Jayda Patiño MD ? EXAMINATION: ?? US RETROPERITONEAL LIMITED (RENAL ONLY) ? CLINICAL INFORMATION: ?? Calculus of kidney. ? COMPARISON: ?? Renal ultrasound 01/18/2022 and 10/27/2021. ?? Correlated to X-ray abdomen KUB 04/23/2024 and 03/28/2024. CT abdomen ?? and pelvis 01/19/2023. ? TECHNIQUE: ?? Real-time imaging of the kidneys using grayscale and color Doppler ?? technique. ? FINDINGS: ? Submitted for interpretation on April 30, 2024. ? RIGHT KIDNEY: 11 x 5 x 5 cm (SAG x AP x TRV). The kidney is normal in ?? size, contour, and echogenicity. Renal cortical thickness is normal. No ?? hydronephrosis. No gross solid or cystic lesion. Normal flow on color ?? Doppler interrogation of the renal hilum. ? LEFT KIDNEY: 12 x 5 x 4 cm (SAG x AP x TRV). The kidney is normal in ?? size, contour, and echogenicity. Renal cortical thickness is normal. No ?? hydronephrosis. No solid or cystic lesion.. There are 3 and 5 mm ?? hyperechoic structures in the midportion. There is flow on color ?? Doppler interrogation of the renal hilum. ? US/US renal BI ?? IMPRESSION: ?? Nonobstructing nephrolithiasis, left kidney. ?? No hydronephrosis.. ? Electronically signed by: ??Jose Lan MD ??04/30/2024 09:17 AM ?? EST RP ? Dictated By: ?Jose Mustafa MD ? Signed By: ?<Electronically signed by Jose Mancini MD in OV> ? 04/30/24916 ? DD/ 1254 ? TD/TT: 04/23/24 1301 ? Hospice Music Therapist: ? Procedure Note Donotuseinterpreter, Image - 04/30/2024 [place] [address] Ultrasound Report Signed Patient: Milady DeanMR#: [id number] : 1965Acct:[id number] Age/Sex: 59 / FADM Date: 04/23/24 Loc: HO.US Attending Dr: Fly Fiore MD Ordering Physician: Fly Fiore MD Date of Service: 04/23/24 Procedure(s): US renal BI Accession Number(s): [id number] cc: Fly Fiore MD; Jayda Patiño MD EXAMINATION: US RETROPERITONEAL LIMITED (RENAL ONLY) CLINICAL INFORMATION: Calculus of kidney. COMPARISON: Renal ultrasound 01/18/2022 and 10/27/2021. Correlated to X-ray abdomen KUB 04/23/[address]24 and 03/28/2024. CT abdomen and pelvis 01/19/2023. TECHNIQUE: Real-time imaging of the kidneys using grayscale and color Doppler technique. FINDINGS: Submitted for interpretation on April 30, 2024. RIGHT KIDNEY: 11 x 5 x 5 cm (SAG x AP x TRV). The kidney is normal in size, contour, and echogenicity. Renal cortical thickness is normal. No hydronephrosis. No gross solid or cystic lesion. Normal flow on color Doppler interrogation of the renal hilum. LEFT KIDNEY: 12 x 5 x 4 cm (SAG x AP x TRV). The kidney is normal in size, contour, and echogenicity. Renal cortical thickness is normal. No hydronephrosis. No solid or cystic lesion.. There are 3 and 5 mm hyperechoic structures in the midportion. There is flow on color Doppler interrogation of the renal hilum. US/US renal BI IMPRESSION: Nonobstructing nephrolithiasis, left kidney. No hydronephrosis.. Electronically signed by: Jose Lan MD 04/30/2024 09:17 AM EST RP Dictated By: Jose Mustafa MD Signed By: <Electronically signed by Jose Mancini MDin OV> 04/30/24 0917 DD/ 1254 TD/TT: 04/23/24 1301 Hospice Music Therapist: us [facility] External Provider IMG US PROCEDURES Edited Result - Final * XR KUB and Upright 2 Views (04/23/2024 12:42 PM EST) Anatomical Region Laterality Modality Radiographic Rossi ging 04/23/2024 12:4 2 PM EST Narrative 04/30/2024 9:36 AM EST ? [facility] ?[address] ?[place] [address] ?XRay Report ? Signed ? Patient: Paul Ruiz,Milady ?MR#: [id number] ?? [id number] ? : 1965 ?Acct:[id number] ? Age/Sex: 59 / F ?ADM Date: 04/23/24 ? Loc: HO.US ? Attending Dr: Fly Fiore MD ? Ordering Physician: Fly Fiore MD ?? Date of Service: 04/23/24 ?? Procedure(s): XR KUB ?? Accession Number(s): [id number] ? cc: Fly Fiore MD; Jayda Patiño MD ? EXAMINATION: ?? XR ABDOMEN KUB ? CLINICAL INDICATION: ?? N20.0 - Calculus of kidney ? COMPARISON: ?? March 28, 2024. ? TECHNIQUE: ?? AP view of the abdomen. ? FINDINGS: ?? No gross calcifications overlapping the kidney shadow. ?? Punctate calcifications in the right lower pelvis likely phlebolith. ?? No intestinal obstruction pattern. ?? Multilevel lumbar spondylosis more conspicuous from L4-5 to L5-S1. ?? Castellvi type III sacralization. ?? Sclerosis and the sacroiliac joints. Vascular clips overlapping the ?? left gluteal region. ?? Spina bifida occulta, S1. ? XR/XR KUB ?? IMPRESSION: ?? No gross nephrolithiasis based upon x-ray. ? Electronically signed by: ??Jose Lan MD ??04/30/2024 09:33 AM ?? EST RP ? Dictated By: ?Jose Mustafa MD ? Signed By: ?<Electronically signed by Jose Mancini MD in OV> ? 04/30/24 0933 ? DD/ 1242 ? TD/TT: 04/23/24 1250 ? Hospice Music Therapist: ? Procedure Note Donteodoroter, Image - 04/30/[address] [address] XRay Report Signed Patient: Mabel Daen#: [id number] : 1965Acct:[id number] Age/Sex: 59 / FADM Date: 04/23/24 Loc: HO. Attending Dr: Fly Fiore MD Ordering Physician: Fly Fiore MD Date of Service: 04/23/24 Procedure(s): XR KUB Accession Number(s): [id number] cc: Fly Fiore MD; Jayda Patiño MD EXAMINATION: XR ABDOMEN KUB CLINICAL INDICATION: N20.0 - Calculus of kidney COMPARISON: March 28, 2024. TECHNIQUE: AP view of the abdomen. FINDINGS: No gross calcifications overlapping the kidney shadow. Punctate calcifications in the right lower pelvis likely phlebolith. No intestinal obstruction pattern. Multilevel lumbar spondylosis more conspicuous from L4-5 to L5-S1. Castellvi type III sacralization. Sclerosis and the sacroiliac joints. Vascular clips overlapping the left gluteal region. Spina bifida occulta, S1. XR/XR KUB IMPRESSION: No gross nephrolithiasis based upon x-ray. Electronically signed by: Jose Lan MD 04/30/2024 09:33 AM EST Dictated By: Jose Mustafa MD Signed By: <Electronically signed by Jose Mancini MDin OV> 04/30/24 0933 DD/ 1242 TD/TT: 04/23/24 1250 Hospice Music Therapist: Result [facility] External Provider IMG XR PROCEDURES Edited Result - Final * POCT Rapid Influenza A SRINIVASAN ID NOW (04/12/2024 1:32 PM EST) Influenza A Negative Negative, Indeterminate [facility] QC Media Lot # [id number] [facility] Lot# Expiration Date 2331,026 [facility] Swab 04/12/2024 1:32 PM EST Result [facility] Jayda Mcelroy MD POINT OF CARE TEST EN TER/EDIT ORDERABLES Final Result Performing Organization Address City/[facility] Co de Phone Number [facility] [address] [place] [phone] * POCT Rapid Strep A SRINIVASAN ID NOW (04/12/2024 1:32 PM EST) Pathologist [facility] Rapid Strep A Screen Negative Negative, None Detected QC Media Lot # [id number] Lot# Expiration Date ,026 Swab 04/12/2024 1:32 PM EST Result [facility] Jayda Mcelroy MD POINT OF CARE TEST EN TER/EDIT ORDERABLES Final Result * POCT Rapid Covid-19 BinaxNOW (04/12/2024 1:32 PM EST) Pathologist [facility] Rapid COVID Ag Positive QC Media Lot # [id number] Lot# Expiration Date 3,,026 Swab 04/12/2024 1:32 PM EST Result [facility] Jayda Mcelroy MD POINT OF CARE TEST EN TER/EDIT ORDERABLES Final Result * POCT Rapid Influenza B SRINIVASAN ID NOW (04/12/2024 1:31 PM EST) Influenza B Negative Negative, Indeterminate [facility] QC Media Lot # [id number] [facility] Lot# Expiration Date [id number] [facility] Swab 04/12/2024 1:31 PM EST Jayda Mcelroy MD POINT OF CARE TEST EN TER/EDIT ORDERABLES Final Result [facility] [address] [place] [address] [phone] * BI Mammogram Screening Tomosynthesis Bilateral (01/24/2024 12:35 PM EDT) Anatomical Region Laterality Modality Breast Bilateral Mammography 01/24/2024 12:3 5 PM EDT Narrative 02/03/2024 9:07 AM EDT ? [facility] ? [address] ?[place] [address] ? Mammography Report ? Signed ? Patient: Paul Ruiz,Milady ?MR#: [id number] ?? [id number] ? : 1965 ?Acct:[id number] ? Age/Sex: 58 / F ?ADM Date: 01/23/ ? Loc: HO.MAMMO ? Attending Dr: Jayda Mcelroy MD ? Ordering Physician: Jayda Patiño MD ?Results: ?? 1Negative ? Date of Service: 01/24/24 ?Follow Up: 1 Year From Orig ?? inal Mammogram ? Procedure(s): MM tomosynthesis screening BI ?? Accession Number(s): [id number] ? cc: Jayda Patiño MD ? EXAMINATION: ?? MM SCREENING DIGITAL BREAST TOMOSYNTHESIS, BILATERAL ? CLINICAL INFORMATION: ? Screening. Asymptomatic. ? COMPARISON: ?? Mammography: Comparison is made with available priors ? TECHNIQUE: ?? Digital breast mammography with tomosynthesis is performed in both the ?? craniocaudal and mediolateral oblique views along with computer-aided ?? detection (CAD). ? FINDINGS: ?? There are scattered areas of fibroglandular density (ACR BI-RADS breast ?? composition Category b). ? There are no significant masses, abnormal calcifications, or other ?? abnormalities. ? MM/MM tomosynthesis screening BI ?? IMPRESSION: ?? No mammographic evidence of malignancy. ? ASSESSMENT: ? BI-RADS BI-RADS 1 - Negative ? RECOMMENDATION: ?? Routine annual mammography screening. ? 1 year F/U ? This examination should not preclude the clinical evaluation of a ?? suspicious palpable abnormality. ? This patient's information was entered into a reminder system with a ?? target due date for their next mammogram. ? Electronically signed by: ??Maria Ines Velazquez DO ??02/03/2024 09:04 AM EDT ?? RP ? Dictated By: ?Maria Ines Velazquez DO ? Signed By: ?<Electronically signed by Maria Ines Velazquez, DO in OV> ? 02/03/24 0904 ? DD/ 1235 ? TD/TT: 01/24/24 1250 ? Hospice Music Therapist: ? Procedure Note Judie Espinal - 02/03/2024 [facility] [address] [place], [place] [address] Mammography Report Signed Patient: Milady Dean#: [id number] : 1965Acct:[id number] Age/Sex: 58 / FADM Date: 01/24/24 Loc: HO.MAMMO Attending Dr: Jayda Mcelroy MD Ordering Physician: Jayda Patiño MDResults: 1Negative Date of Service: 01/24/24Follow Up: 1 Year From Orig inal Mammogram Procedure(s): MM tomosynthesis screening BI Accession Number(s): [id number] cc: Jayda Patiño MD EXAMINATION: MM SCREENING DIGITAL BREAST TOMOSYNTHESIS, BILATERAL CLINICAL INFORMATION: Screening. Asymptomatic. COMPARISON: Mammography: Comparison is made with available priors TECHNIQUE: Digital breast mammography with tomosynthesis is performed in both the craniocaudal and mediolateral oblique views along with computer-aided detection (CAD). FINDINGS: There are scattered areas of fibroglandular density (ACR BI-RADS breast composition Category b). There are no significant masses, abnormal calcifications, or other abnormalities. MM/MM tomosynthesis screening BI IMPRESSION: No mammographic evidence of malignancy. ASSESSMENT: BI-RADS BI-RADS 1 - Negative RECOMMENDATION: Routine annual mammography screening. 1 year F/U This examination should not preclude the clinical evaluation of a suspicious palpable abnormality. This patient's information was entered into a reminder system with a target due date for their next mammogram. Electronically signed by: Maria Ines Velazquez DO 02/03/2024 09:04 AM EDT Dictated By: Maria Ines Velazquez DO Signed By: <Electronically signed by Maria Ines Velazquez DO in OV> 02/03/24 0904 DD/ 1235 TD/TT: 01/24/24 1250 Hospice Music Therapist: Jayda Mcelroy MD IMG BI PROCEDURES Gabriel kristen Result - Final * HPV mRNA E6/E7 w/Reflex to HPV Genotypes 16, 18/45 (07/01/2023 2:31 PM EST) HPV nRNA E6/E7 Not Detected Not Detected [facility] Comment:Methodology: Transcr iption-Mediated AmplificationThis assay detects E6/E7 viral messenger RNA (mRNA) from 14high-risk HPV types (16,18,31,33,35,39,45,51,52,56,58,59,66,68).Cervical sources are required for HPV testing.If a vaginal source from a patient who has had atotal hysterectomy with removal of cervix wassubmitted, please contact the testing laboratoryfor alternative testing options.For additional information, please refer tohttp://education.[employer]/faq/BXP899z1(This link if provided for information/educational purposes only.)THIS TEST WAS PERFORMED AT:[facility] [place] [id number] SANCHEZ MD HPV mRNA E6/E7 [facility] HPV 16 RNA [facility] HPV 18/45 RNA [facility] 07/01/2023 2:31 PM EST 07/04/2023 8:45 AM EDT [facility] CYTOLOGY ORDERABLES Final Result [facility] [address] [place] [address] [phone] * Pap Smear (07/01/2023 2:31 PM EST) Swab Cervix uteri structure / Unknown 07/01/2023 2:31 PM EST 07/04/2023 8:45 AM EDT Narrative [facility] - 07/12/2023 9:30 AM EDT ----- ------- Name: Milady Dean ? Age/Sex: 58/F ? : 1965 Unit#: [id number] ?? Attend Dr: Lora Wise [employer]ER ?Re07/01/23 ?Status: DEP REF ? Location: HO.HHCLNP ? Disch: ? ----- ------- SPEC : [id number] ? RECD: 07/04/23 ? STATUS: ??SOUT ? REQ NUM: [id number] ? TAMEKA: 07/01/23-1431 ? SUBM DR: Lora Wise [employer]ER ? ENTERED: ??07/04/23-1042 ?SP TYPE: Pap Smr ?OTHR DR: ? ORDERED: ??Pap Smear ? Interpretation ?? Satisfactory for evaluation. ?? No endocervical cells seen. ?? Cytolysis noted. ?? Negative for intraepithelial lesion or malignancy. ?HPV mRNA E6/E7: ?NOT DETECTED ? This assay detects E6/E7 viral messenger RNA (mRNA) from 14 high-risk HPV types (16, 18, ?? 31, 33, 35, 39, 45, 51, 52, 56, 58, 59, 66, 68) ?? HPV testing performed by [facility] [place], [place]. ??See reference laboratory ?? portion of the EMR for entire report. ?Clinical Information LMP: Postmenopausal Previous PAP test: Unknown date/findings ? Material Received ?? ThinPrep-Vaginal/Cervical ----- ------- Signed (signature on file) JEROME Jimenez (ASCP) 07/12/23 9764 ? ----- ------- ? END OF REPORT ? [facility] CYTOLOGY ORDERABLES Final Result [facility] [address] [place] [phone] * HEPATITIS C AB W/REFL TO HCV RNA, QN, PCR (09/16/2020 11:17 AM EDT) HEPATITIS C ANTIBODY NON-REACT KYE NON-REACT KYE [facility] INDEX 0.01 <1.00 [facility] Comment: ?? HCV antibody was non-reactive. There is no laboratory ?? evidence of HCV infection. ?? In most cases, no further action is required. However, if recent HCV exposure is suspected, a test for HCV RNA (test code 99931) is suggested. ?? For additional information please refer to http://education.[employer]/faq/XUV46d4 (This link is being provided for informational/ educational purposes only.) ?? 09/16/2020 11:1 7 AM EDT Jayda Mcelroy MD HISTORICAL/NON ORDERA BLE LABS Final Result [facility] [address] * Hm Colonoscopy (05/10/2013) Colonoscopy Normal Normal Narrative [facility] - 05/10/2013 Recommended 10 year follow up Historical Provider HEALTH MAINTENANCE Final Result from Last 3 Months or Most Recently Relevant to Health Maintenance Insurance [facility] C3 Care Teams Nurse Anesthetist Relationship Specialty Start Date End Date Jayda Patiño MD [address] [place] [phone] PCP - General Family Medicine 04/05/19
--- OUTSIDE RECORDS SUMMARY | 2024-07-05 13:59 | XMS_ITS | Encounter Summary ---
Author Organization [employer] Address [address] [facility] 7t [place] [address] Care Team Providers Care Senior Climate Advisor Name Role Phone Jayda Patiño MD Primary Care Provide r Reason for Visit * Reason Comments Med Refill Encounter Details Date Type Department Care Team ([facility] st Contact Info) Description 02/24/2023 Refill [facility] [address] [place], [place] [phone] Jayda Patiño MD [address] [place] [address] Chronic migraine without aura without status migrainosus, not intractable; Vitamin D deficiency; Chronic rhinitis; Hyperlipidemia, unspecified hyperlipidemia type Social History Tobacco Use Types Packs/Day Years [...] Description 07/12/2024 1:45 PM EDT Office Visit [facility] [address] [place] [phone] Jayda Patiño MD [address] [place] [address] documented as of this encounter Visit Diagnoses Diagnosis Chronic migraine without aura without status migrainosus, not intractable Vitamin D deficiency Chronic rhinitis Hyperlipidemia, unspecified hyperlipidemia type documented in this encounter Additional Health Concerns Assessment Noted Time PHQ-9 Depression Total Score: 14 023 1:24 PM EDT documented as of this encounter Care Teams Senior Climate Advisor Relationship Specialty Start Date End Date Jayda Patiño MD [address] [place] [phone] PCP - General Family Medicine 04/05/19 documented as of this encounter
--- OUTSIDE RECORDS SUMMARY | 2024-07-05 13:59 | XMS_ITS | Encounter Summary ---
Author Organization [employer] Address [address] [facility] [address] 7[address] [place] [address] Care Team Providers Care Pediatric Immunologist Name Role Phone Jayda Patiño MD Primary Care Provide r Reason for Visit * Reason Comments Med Refill Encounter Details Date Type Department Care Team ([facility] st Contact Info) Description 12/31/2023 Refill [facility] [address] [place], [place] [phone] Marilee Whittaker MD [address] [place], [place] [phone] Chronic migraine without aura without status migrainosus, [...] Description 07/12/2024 1:45 PM EDT Office Visit [facility] [address] [place] [phone] Jayda Patiño MD [address] [place] [address] documented as of this encounter Visit Diagnoses Diagnosis Chronic migraine without aura without status migrainosus, not intractable documented in this encounter Additional Health Concerns Assessment Noted Time PHQ-9 Depression Total Score: 14 024 10:05 AM EST documented as of this encounter Care Teams Pediatric Immunologist Relationship Specialty Start Date End Date Jayda Patiño MD [address] [place] [phone] PCP - General Family Medicine 04/05/19 documented as of this encounter
--- OUTSIDE RECORDS SUMMARY | 2024-07-05 13:59 | XMS_ITS | Encounter Summary ---
Author Organization [employer] Address [address] [facility] [address] 7[address] [place] [address] Care Team Providers Care Machine Packaging Technician Name Role Phone Jayda Patiño MD Primary Care Provide r Reason for Visit * Reason Comments Med Refill Encounter Details Date Type Department Care Team ([facility] st Contact Info) Description 01/14/2024 Refill [facility] [address] [place], [place] [phone] Jayda Patiño MD [address] [place] [phone] Health care maintenance Social History Tobacco Use Types Packs/Day Years [...] Description 07/12/2024 1:45 PM EDT Office Visit [facility] [address] [place] [phone] Jayda Patiño MD [address] [place] [phone] documented as of this encounter Visit Diagnoses Diagnosis Health care maintenance documented in this encounter Additional Health Concerns Assessment Noted Time PHQ-9 Depression Total Score: 14 024 10:05 AM EST documented as of this encounter Care Teams Machine Packaging Technician Relationship Specialty Start Date End Date Jayda Patiño MD [address] [place] [phone] PCP - General Family Medicine 04/05/19 documented as of this encounter
--- OUTSIDE RECORDS SUMMARY | 2024-07-05 13:59 | XMS_ITS | Encounter Summary ---
Author Organization [email or web address] Address [address] [facility] [address] [place] [address] Care Team Providers Care Bridge/Structure Inspection Team Leader Name Role Phone Jayda Patiño MD Primary Care Provide r Reason for Visit * Reason Comments Med Refill Encounter Details Date Type Department Care Team ([facility] st Contact Info) Description 02/20/2024 Refill [facility] [address] [place], [place] [phone] Celena Farias DO [address] [place] [address] Chronic rhinitis Social History Tobacco Use Types [...] Description 07/12/2024 1:45 PM EDT Office Visit [facility] [address] [place] [phone] Jayda Patiño MD [address] [place] [phone] documented as of this encounter Visit Diagnoses Diagnosis Chronic rhinitis documented in this encounter Additional Health Concerns Assessment Noted Time PHQ-9 Depression Total Score: 14 024 10:05 AM EST documented as of this encounter Care Teams Bridge/Structure Inspection Team Leader Relationship Specialty Start Date End Date Jayda Patiño MD [address] [place] [phone] PCP - General Family Medicine 04/05/19 documented as of this encounter
--- OUTSIDE RECORDS SUMMARY | 2024-07-05 13:59 | XMS_ITS | Encounter Summary ---
Author Organization [employer] Address [address] [facility] [address] 7[address] [place] [address] Care Team Providers Care Market Relationship Manager Name Role Phone Jayda Patiño MD Primary Care Provide r Reason for Visit * Reason Comments Med Refill Encounter Details Date Type Department Care Team ([facility] st Contact Info) Description 03/26/2023 Refill [facility] [address] [place], [place] [phone] Name, MD Lorenzo [address] [place] [address] Hypertension, unspecified type Social History Tobacco Use Types Packs/Day [...] t he electric, gas, oil or water [employer] threatened to shut off services in your [...] Description 07/12/2024 1:45 PM EDT Office Visit [facility] [address] [place] [address] Jayda Patiño MD [address] [place] [phone] documented as of this encounter Visit Diagnoses Diagnosis Hypertension, unspecified type documented in this encounter Additional Health Concerns Assessment Noted Time PHQ-9 Depression Total Score: 14 023 1:24 PM EDT documented as of this encounter Care Teams Market Relationship Manager Relationship Specialty Start Date End Date Jayda Patiño MD [address] [place] [phone] PCP - General Family Medicine 04/05/19 documented as of this encounter
--- OUTSIDE RECORDS SUMMARY | 2024-07-05 13:59 | XMS_ITS | Encounter Summary ---
Author Organization [facility] Address [address] [place] [address] Care Team Providers Care Soaker Meat Name Role Phone Community, Pcp Primary Care Provider Jayda Avila MD Primary Care Provide r Unavailable Encounter Details Date Type Department Care Team Description 11/10/2016 Composition Teacher Report Medical Records [address] [place] [address] Social History Tobacco Use Types Packs/Day Years Used Date Smoking Tobacco: Former Alcohol Use Standard Drinks/Week Comments No 0 (1 standard drink = 0.6 oz pur e alcohol) Sex Assigned at Date Recorded Not on file documented as of this encounter Plan of Treatment Not on file documented as of this encounter Visit Diagnoses Not on filedocumented in this encounter Care Teams Soaker Meat Relationship Specialty Start Date End Date Community, Pcp PCP - General Internal Medicine 09/23/16 06/15/23 Jayda Rasheed MD PCP - General Internal Medicine 06/16/23 documented as of this encounter
--- OUTSIDE RECORDS SUMMARY | 2024-07-05 13:59 | XMS_ITS | Encounter Summary ---
Author Organization [facility] Address [address] [place] [address] Care Team Providers Care Lamp Cleaner Street Light Name Role Phone Community, Pcp Primary Care Provider Jayda Avila MD Primary Care Provide r Unavailable Encounter Details Date Type Department Care Team Description 10/13/2016 Histotechnician Report Medical Records [address] [place] [phone] Zay Melton MD Social History Tobacco Use [...] on filedocumented in this encounter Care Teams Lamp Cleaner Street Light Relationship Specialty Start Date End Date Community, Pcp PCP - General Internal Medicine 09/23/16 06/15/23 Jayda Rasheed MD PCP - General Internal Medicine 06/16/23 documented as of this encounter
--- OUTSIDE RECORDS SUMMARY | 2024-07-05 13:59 | XMS_ITS | Clinical Summary ---
Author Organization [facility] Address [address] [place] [address] Care Team Providers Care Ammonium Sulfate Operator Name Role Phone Jayda Patiño MD Primary Care Provide r Surgical History Surgery Date Site/Laterality Comments BUNIONECTOMY 2014 Left PROCEDURE: ND CORRJ HLX VLGS BNCTY SESMDC W/DOUBLE OSTEOTOMY OTHER SURGICAL HISTORY 12/28/12 PROCEDURE: OUTSIDE PAP SMEAR TUBAL LIGATION PROCEDURE: HISTORICAL TUBAL LIGATION EYE SURGERY Left PROCEDURE: HISTORICAL EYE SURGERY; COMMENT: EYELID CERVICAL BIOPSY W/ LOOP ELECTRODE EXCISION PROCEDURE: ND CONIZATION CERVIX W/WO D&C RPR ELTRD EXC; COMMENT: x2 ( & 2009) Medical History Medical History Date Comments Hallux valgus of right foot 01/05/2016 DX:H allux valgus of right foot; COMMENT: Calcaneal spurs 12/15/15 DDD (degenerative disc disease), lumbar DX:DDD (degenerative disc disease), lumbar; COMMENT: 2103 sondylolisthesis L4-L5 / Spina bifida occulta S1 Fibromyalgia 01/05/2016 DX:Fibromyalgia Migraine 01/05/2016 DX:Migraine Vitamin D deficiency 01/05/2016 DX:Vitamin D deficiency Recurrent major depression (CMS/HCC) 01/05/2016 DX:Recurrent major depression (HCC) Chronic abdominal pain 01/05/2016 DX:Chroni c abdominal pain Constipation 01/05/2016 DX:Constipation Renal calculi 01/05/2016 DX:Renal calculi Hypertriglyceridemia 01/05/2016 DX:Hypertri glyceridemia Family History Relation Name Status Comments Daughter 1 Alive 28 year old wit h intellectual disabilities and osteopetrosis Daughter 2 Alive Father was not close, does not know Mother (Age 75) DM, heart disease Son Alive Social History Tobacco Use Types Packs/Day Years Used Date Smoking Tobacco: Former Alcohol Use Standard Drinks/Week Comments No 0 (1 standard drink = 0.6 oz pur e alcohol) Comments Unknown Sex and Gender Information Value Date Recorded Sex Assigned at Not on file Legal Sex Female 5:46 AM EST Gender Identity Not on file Sexual Orientation Not on file Obstetrics History Last Filed Vital Signs Vital Sign Reading Time Taken Comments Blood Pressure - - Pulse - - Temperature - - Respiratory Rate - - Oxygen Saturation - - Inhaled Oxygen Concentration - - Weight 104 kg (230 lb) 10/05/2023 1:06 PM EDT Height 160 cm (5' 3 ) 10/05/2023 1:06 PM EDT Body Mass Index 40.74 10/05/2023 1:06 PM EDT Plan of Treatment Health Maintenance Due Date Last Done Comments Breast Cancer Screening 1966 Hepatitis B Vaccines (1 of 3 - 19+ 3-dose series) 1985 Cervical Cancer Screening: P ap Smear 1987 Pneumococcal Vaccine: 50+ Years (1 of 1 - PCV) 2016 Zoster Vaccines (1 of 2) 2016 Cholesterol Screening (Lipid Panel) 03/28/2022 Colorectal Cancer Screening: Colonoscopy 03/28/2022 Depression Screening 03/28/2022 HIV Screening 03/28/2022 Hepatitis C Screening 03/28/2022 Social Influencers of Health Screening 03/28/2022 DTaP,Tdap,and Td Vaccines (3 - Td or Tdap) 06/05/2022 06/05/2012, 05/18/2005 COVID-19 Vaccine (2023-2 5 season) 2023 Influenza Vaccine (#1) 2023 6, 02/27/2015 HIB Vaccines Aged Out No longer eligi [...] on patient's age to complete this topic MMR Vaccines Aged Out No longer eligi ble based on patient's age to complete this topic Meningococcal ACWY Vaccine Aged Out N o longer eligible based on patient's age to complete this topic Meningococcal B Vacine Aged Out No lo nger eligible based on patient's age to complete this topic Pneumococcal Vaccine: Pediatrics (0 to 5 Years) and At-Risk Patients (6 to 64 Years) Aged Out No longer eligible b ased on patient's age to complete this topic RSV Immunization Patients Under 20 months Aged Out No longer eligible b ased on patient's age to complete this topic Varicella Vaccines Aged Out No longer eligible based on patient's age to complete this topic Care Teams Ammonium Sulfate Operator Relationship Specialty Start Date End Date Jayda Patiño MD [address] [place] [phone] PCP - General 06/16/23
--- OUTSIDE RECORDS SUMMARY | 2024-07-05 13:59 | XMS_ITS | Encounter Summary ---
Author Organization [employer] Address [address] [facility] [address] 7t [place] [address] Care Team Providers Care Senior Accounting Clerk Name Role Phone Jayda Patiño MD Primary Care Provide r Reason for Visit * Reason Comments Med Refill Encounter Details Date Type Department Care Team ([facility] st Contact Info) Description 04/29/2023 Refill [facility] [address] [place], [place] [phone] Name, MD Lorenzo [address] [place], [place] [phone] Hypertension, unspecified type Social History Tobacco Use [...] t he electric, gas, oil or water mobiliThink threatened to shut off services in your [...] Description 07/12/2024 1:45 PM EDT Office Visit [facility] [address] [place] [address] Jayda Patiño MD [address] [place] [phone] documented as of this encounter Visit Diagnoses Diagnosis Hypertension, unspecified type documented in this encounter Additional Health Concerns Assessment Noted Time PHQ-9 Depression Total Score: 14 023 1:24 PM EDT documented as of this encounter Care Teams Senior Accounting Clerk Relationship Specialty Start Date End Date Jayda Patiño MD [address] [place] [phone] PCP - General Family Medicine 04/05/19 documented as of this encounter
--- OUTSIDE RECORDS SUMMARY | 2024-07-05 14:00 | XMS_ITS | Encounter Summary ---
Author Organization [facility] Address 75 [facility] 7t [place] [address] Care Team Providers Care Dairy Lab Technician Name Role Phone Jayda Patiño MD Primary Care Provide r Reason for Visit * Reason Comments Med Refill Encounter Details Date Type Department Care Team ([facility] Contact Info) Description 05/27/2022 Refill [facility] MEDICINE [address] [place] [address] Lia Edwards FNP [address] [place] [address] Chronic right shoulder pain Social History Tobacco Use Types Packs/Day Years Used Date Smoking Tobacco: Never Assessed Comments Unknown Sex and Gender Information Value Date Recorded Sex Assigned at Female 02/22/2022 10:15 AM EDT Legal Sex Female 10:15 AM EDT Gender Identity Female 02/22/2022 10:15 AM EDT Sexual Orientation Choose not to disclose 2021 10:15 AM EDT documented as of this encounter Plan of Treatment Upcoming Encounters Date Type Department Care Team (Late Contact Info) Description 07/12/2024 1:45 PM EDT Office Visit [facility] MEDICINE [address] [place] [address] Jayda Patiño MD [address] [place] [address] documented as of this encounter Visit Diagnoses Diagnosis Chronic right shoulder pain Pain in joint, shoulder region documented in this encounter Care Teams Dairy Lab Technician Relationship Specialty Start Date End Date Jayda Patiño MD [address] [place] [address] PCP - General Family Medicine 04/05/19 documented as of this encounter
--- OUTSIDE RECORDS SUMMARY | 2024-07-05 14:00 | XMS_ITS | Encounter Summary ---
Author Organization [facility] Address [address] [facility] 7t [place] [address] Care Team Providers Care Scaffolding Helper Name Role Phone Jayda Patiño MD Primary Care Provide r Reason for Visit * Reason Comments Med Refill Encounter Details Date Type Department Care Team ([facility] Contact Info) Description 07/30/[address] [facility] [address] [place] [address] Lia Edwards FNP [address] [place] [address] Chronic right shoulder pain Social History Tobacco [...] EDT Office Visit [facility] [address] [place] [address] Jayda Patiño MD [address] [place] [address] documented as of this encounter Visit Diagnoses Diagnosis Chronic right shoulder pain Pain in joint, shoulder region documented in this encounter Care Teams Scaffolding Helper Relationship Specialty Start Date End Date Jayda Patiño MD [address] [place] [address] PCP - General Family Medicine 04/05/19 documented as of this encounter
--- OUTSIDE RECORDS SUMMARY | 2024-07-05 14:00 | XMS_ITS | Encounter Summary ---
Author Organization [employer] [facility] Address [address] [facility] 7t [place] [address] Care Team Providers Care Car Wash Attendant Automatic Name Role Phone Jayda Patiño MD Primary Care Provide r Reason for Visit * Reason Comments Med Refill Encounter Details Date Type Department Care Team (Late Contact Info) Description 09/25/2022 Refill [facility] MEDICINE [address] [place] [phone] Jayda Patiño MD [address] [place] [address] Chronic right shoulder pain Social History Tobacco Use Types Packs/Day Years Used Date Smoking Tobacco: Never Passive Smoke Exposure: Never Smokeless Tobacco: Never Depression Answer Date Recorded Patient Health Questionnaire-9 Score 14 09/06/2022 Depression Answer Date Recorded Patient Health Questionnaire-2 Score 2 09/06/2022 Comments Unknown Sex and Gender Information Value Date Recorded Sex Assigned at Female 02/22/2022 10:15 AM EDT Legal Sex Female 10:15 AM EDT Gender Identity Female 02/22/2022 10:15 AM EDT Sexual Orientation Choose not to disclose 2021 10:15 AM EDT COVID-19 Exposure Response Date Recorded In the last 10 days, have yo u been in contact with someone who was confirmed or suspected to have Coronavirus/COVID-19? No / Unsure 09/06/2022 1:12 PM EDT documented as of this encounter Plan of Treatment Upcoming Encounters Date Type Department Care Team (Late Contact Info) Description 07/12/2024 1:45 PM EDT Office Visit [facility] MEDICINE [address] [place] [address] Jayda Patiño MD [address] [place] [address] documented as of this encounter Visit Diagnoses Diagnosis Chronic right shoulder pain Pain in joint, shoulder region documented in this encounter Additional Health Concerns Assessment Noted Time PHQ-9 Depression Total Score: 14 023 1:24 PM EDT documented as of this encounter Care Teams Car Wash Attendant Automatic Relationship Specialty Start Date End Date Jayda Patiño MD [address] [place] [address] PCP - General Family Medicine 04/05/19 documented as of this encounter
--- OUTSIDE RECORDS SUMMARY | 2024-07-05 14:00 | XMS_ITS | Encounter Summary ---
Author Organization [employer] Address [address] [facility] [address] 7t [place] [address] Care Team Providers Care Life Trainer Name Role Phone Jayda Patiño MD Primary Care Provide r Reason for Visit * Reason Comments Med Refill Encounter Details Date Type Department Care Team ([facility] st Contact Info) Description 07/07/2023 Refill [facility] MEDICINE [address] [place], [place] [phone] Jayda Patiño MD [address] [place] [address] Health care maintenance Social History Tobacco Use [...] Description 07/12/2024 1:45 PM EDT Office Visit [facility] MEDICINE [address] [place] [address] Jayda Patiño MD [address] [place] [phone] documented as of this encounter Visit Diagnoses Diagnosis Health care maintenance documented in this encounter Additional Health Concerns Assessment Noted Time PHQ-9 Depression Total Score: 14 024 10:05 AM EST documented as of this encounter Care Teams Life Trainer Relationship Specialty Start Date End Date Jayda Patiño MD [address] [place] [address] PCP - General Family Medicine 04/05/19 documented as of this encounter
--- OUTSIDE RECORDS SUMMARY | 2024-07-05 14:00 | XMS_ITS | Encounter Summary ---
Author Organization [facility] Address [address] [facility] 7t [place] [address] Care Team Providers Care Head Rigger Name Role Phone Jayda Patiño MD Primary Care Provide r Reason for Visit * Reason Comments Med Refill Encounter Details Date Type Department Care Team (Late st Contact Info) Description 10/22/2022 Refill [facility] 230 [place] [address] [facility] [address] [place] [address] Hypertension, unspecified type Social History Tobacco Use [...] Description 07/12/2024 1:45 PM EDT Office Visit [facility] MED[facility]INE [address] [place] [address] Jayda Patiño MD [address] [place], [place] [phone] documented as of this encounter Visit Diagnoses Diagnosis Hypertension, unspecified type documented in this encounter Additional Health Concerns Assessment Noted Time PHQ-9 Depression Total Score: 14 023 1:24 PM EDT documented as of this encounter Care Teams Head Rigger Relationship Specialty Start Date End Date Jayda Patiño MD [address] [place] [address] PCP - General Family Medicine 04/05/19 documented as of this encounter
--- OUTSIDE RECORDS SUMMARY | 2024-07-05 14:00 | XMS_ITS | Encounter Summary ---
Author Organization [employer] Address 75 [facility] 7t [place] [address] Care Team Providers Care Drill Press Operator For Metal Name Role Phone Jayda Patiño MD Primary Care Provide r Reason for Visit * Reason Comments Pre-visit Planning (Unable to reach for PVP screening, LVM) Encounter Details Date Type Department Care Team ([facility] st Contact Info) Description 07/04/[address] [facility] MEDICINE [address] [place] [address] Jayda Patiño MD [address] [place] [address] Pre-visit Planning ((Unable to reach for PVP screening, LVM)) Social History Tobacco Use Types Packs/Day Years [...] your housing situation today? I have luma diana 02/09/[address] you li [...] AM EDT documented as of this encounter Progress Notes * Samreen Forbes - 07/04/2024 9:53 AM EDT CC Samreen. Placed outbound call to patient to complete pre-visit planning. No answer at this time. Patient name and were not confirmed. CC left voicemail requesting return call. Direct contact information provided. documented in this encounter Plan of Treatment Upcoming Encounters Date Type Department Care Team (Late st Contact Info) Description 07/12/2024 1:45 PM EDT Office Visit [facility] MEDICINE [address] [place] [phone] Jayda Patiño MD [address] [place] [address] documented as of this encounter Visit Diagnoses Not on filedocumented in this encounter Additional Health Concerns Assessment Noted Time PHQ-9 Depression Total Score: 14 024 10:05 AM EST documented as of this encounter Care Teams Drill Press Operator For Metal Relationship Specialty Start Date End Date Jayda Patiño MD [address] [place] [phone] PCP - General Family Medicine 04/05/19 documented as of this encounter
--- OUTSIDE RECORDS SUMMARY | 2024-07-05 14:00 | XMS_ITS | Encounter Summary ---
Author Organization [facility] [facility] Address [address] [facility] 7t [place] [address] Care Team Providers Care Hair Colorist Name Role Phone Jayda Patiño MD Primary Care Provide r Reason for Visit * Reason Comments Med Refill Encounter Details Date Type Department Care Team ([facility] Contact Info) Description 08/13/[address] [facility] MEDICINE [address] [place], [place] [phone] Lissette White MD [address] [place], [place] [phone] Chronic rhinitis Social History Tobacco Use Types [...] 1:45 PM EDT Office Visit [facility] MEDICINE [address] [place] [address] [phone] Jayda Patiño MD [address] [place], [place] [phone] documented as of this encounter Visit Diagnoses Diagnosis Chronic rhinitis documented in this encounter Care Teams Hair Colorist Relationship Specialty Start Date End Date Jayda Patiño MD [address] [place] [address] PCP - General Family Medicine 04/05/19 documented as of this encounter
--- OUTSIDE RECORDS SUMMARY | 2024-07-05 14:00 | XMS_ITS | Encounter Summary ---
Author Organization [facility] Address [address] [facility] 7t [place] [address] Care Team Providers Care Gateman Name Role Phone Jayda Patiño MD Primary Care Provide r Reason for Visit * Reason Comments Med Refill Encounter Details Date Type Department Care Team ([facility] Contact Info) Description 07/02/2022 Refill [facility] MEDICINE [address] [place] [address] Lia Edwards FNP [address] [place] [address] Chronic right shoulder pain Social History Tobacco [...] Description 07/12/2024 1:45 PM EDT Office Visit [facility] MEDICINE [address] [place] [address] Jayda Patiño MD [address] [place] [address] documented as of this encounter Visit Diagnoses Diagnosis Chronic right shoulder pain Pain in joint, shoulder region documented in this encounter Care Teams Gateman Relationship Specialty Start Date End Date Jayda Patiño MD [address] [place] [address] PCP - General Family Medicine 04/05/19 documented as of this encounter
--- OUTSIDE RECORDS SUMMARY | 2024-07-05 14:00 | XMS_ITS | Encounter Summary ---
Author Organization [facility] Address [address] [place] [address] 7 [place] [address] Care Team Providers Care Rework Machine Operator Name Role Phone Jayda Patiño MD Primary Care Provide r Reason for Visit * Reason Comments Med Refill Encounter Details Date Type Department Care Team (Late st Contact Info) Description 12/31/2022 Refill [facility] MEDICINE [address] [place] [address] [phone] Adela Denney FNP [address] [place] [address] Dept [place] [address] Health care maintenance Social History Tobacco Use [...] 1:45 PM EDT Office Visit [facility] MED[facility] [address] [place] [address] [phone] Jayda Patiño MD [address] [place], [place] [phone] documented as of this encounter Visit Diagnoses Diagnosis Health care maintenance documented in this encounter Additional Health Concerns Assessment Noted Time PHQ-9 Depression Total Score: 14 023 1:24 PM EDT documented as of this encounter Care Teams Rework Machine Operator Relationship Specialty Start Date End Date Jayda Patiño MD [address] [place] [address] PCP - General Family Medicine 04/05/19 documented as of this encounter
--- OUTSIDE RECORDS SUMMARY | 2024-07-05 14:00 | XMS_ITS | Encounter Summary ---
Author Organization [facility] Address [address] [place] [address] Care Team Providers Care Superintendent Drilling Name Role Phone Victor Hugo Rodrigues MD Primary Care Provider Un available Community, Pcp Primary Care Provider Unavailabl e Jayda Rasheed MD Primary Care Provide r Unavailable Encounter Details Date Type Department Care Team Description 01/19/2016 Orders Only Adult Medicine [address] [address] Victor Hugo Rodrigues MD Social History Tobacco Use Types Packs/Day Years Used Date Smoking Tobacco: Former Alcohol Use Standard Drinks/Week Comments No 0 (1 standard drink = 0.6 oz pur e alcohol) Sex Assigned at Date Recorded Not on file documented as of this encounter Plan of Treatment Not on file documented as of this encounter Visit Diagnoses Not on filedocumented in this encounter Care Teams Superintendent Drilling Relationship Specialty Start Date End Date Victor Hugo Rodrigues MD PCP - General Internal Medicine 12/22/15 [facility], Pcp PCP - General Internal Medicine 09/23/16 06/15/23 Jayda Rasheed MD PCP - General Internal Medicine 06/16/23 documented as of this encounter
--- OUTSIDE RECORDS SUMMARY | 2024-07-05 14:00 | XMS_ITS | Encounter Summary ---
Author Organization [employer] [facility] Address 75 [facility] 7t [place] [address] Care Team Providers Care Supervisor Shrimp Pond Name Role Phone Jayda Patiño MD Primary Care Provide r Reason for Visit * Reason Comments Med Refill Encounter Details Date Type Department Care Team (Late Contact Info) Description 12/04/2022 Refill [facility] MEDICINE [address] [place], [place] [phone] Jayda Patiño MD [address] [place], [place] [phone] Gastro-esophageal reflux disease without esophagitis Social History Tobacco Use Types Packs/Day Years [...] Description 07/12/2024 1:45 PM EDT Office Visit [facility] MEDICINE [address] [place], [place] [phone] Jayda Patiño MD [address] [place], [place] [phone] documented as of this encounter Visit Diagnoses Diagnosis Gastro-esophageal reflux disease without esophagitis documented in this encounter Additional Health Concerns Assessment Noted Time PHQ-9 Depression Total Score: 14 023 1:24 PM EDT documented as of this encounter Care Teams Supervisor Shrimp Pond Relationship Specialty Start Date End Date Jayda Patiño MD [address] [place] [address] PCP - General Family Medicine 04/05/19 documented as of this encounter
--- OUTSIDE RECORDS SUMMARY | 2024-07-05 14:00 | XMS_ITS | Encounter Summary ---
Author Organization [facility] [facility] Address 75 [facility] 7t [place] [address] Care Team Providers Care Cancer Program Director Name Role Phone Jayda Patiño MD Primary Care Provide r Reason for Visit * Reason Comments Med Refill Encounter Details Date Type Department Care Team ([facility] Contact Info) Description 07/02/2022 Refill [facility] MEDICINE [address] [place], [place] [phone] Lissette White MD [address] [place] [address] Chronic rhinitis Social History Tobacco Use Types [...] EDT Office Visit [facility] MEDICINE [address] [place] [address] [phone] Jayda Patiño MD [address] [place], [place] [phone] documented as of this encounter Visit Diagnoses Diagnosis Chronic rhinitis documented in this encounter Care Teams Cancer Program Director Relationship Specialty Start Date End Date Jayda Patiño MD [address] [place] [address] PCP - General Family Medicine 04/05/19 documented as of this encounter
--- OUTSIDE RECORDS SUMMARY | 2024-07-05 14:00 | XMS_ITS | Encounter Summary ---
Author Organization [employer] [facility] Address [address] [facility] 7t [place] [address] Care Team Providers Care Channel Cementer Outsole Machine Name Role Phone Jayda Patiño MD Primary Care Provide r Reason for Visit * Reason Comments Med Refill Encounter Details Date Type Department Care Team (Late Contact Info) Description 06/09/2022 Refill [facility] MEDICINE [address] [place], [place] [phone] Lissette White MD [address] [place], [place] [phone] Chronic rhinitis Social History Tobacco Use Types [...] 1:45 PM EDT Office Visit [facility] MEDICINE [address] [place] [address] [phone] Jayda Patiño MD [address] [place], [place] [phone] documented as of this encounter Visit Diagnoses Diagnosis Chronic rhinitis documented in this encounter Care Teams Channel Cementer Outsole Machine Relationship Specialty Start Date End Date Jayda Patiño MD [address] [place] [address] PCP - General Family Medicine 04/05/19 documented as of this encounter
--- OUTSIDE RECORDS SUMMARY | 2024-07-05 14:00 | XMS_ITS | Encounter Summary ---
Author Organization [facility] Address [address] [facility] 7t [place] [address] Care Team Providers Care Compounder Sterile Products Name Role Phone Jayda Patiño MD Primary Care Provide r Reason for Visit * Reason Comments Med Refill Encounter Details Date Type Department Care Team (Late st Contact Info) Description 05/22/2022 Refill [facility] [address] [place], [place] [phone] Celena Farias DO [address] [place] [address] Hypertension, unspecified type Social History Tobacco Use [...] Description 07/12/2024 1:45 PM EDT Office Visit [facility] MEDICINE [address] [place], [place] [phone] Jayda Patiño MD [address] [place] [address] documented as of this encounter Visit Diagnoses Diagnosis Hypertension, unspecified type documented in this encounter Care Teams Compounder Sterile Products Relationship Specialty Start Date End Date Jayda Patiño MD [address] [place] [address] PCP - General Family Medicine 04/05/19 documented as of this encounter
--- OUTSIDE RECORDS SUMMARY | 2024-07-05 14:00 | XMS_ITS | Encounter Summary ---
Author Organization [employer] [facility] Address [address] [facility] 7t [place] [address] Care Team Providers Care Flask Carrier Name Role Phone Jayda Patiño MD Primary Care Provide r Reason for Visit * Reason Comments Med Refill Encounter Details Date Type Department Care Team ([facility] Contact Info) Description 09/06/2022 Refill [facility] [address] [place] [address] Jayda Patiño MD [address] [place] [address] Chronic right shoulder pain Social History Tobacco [...] Description 07/12/2024 1:45 PM EDT Office Visit [facility] [address] [place] [address] Jayda Patiño MD [address] [place] [address] documented as of this encounter Visit Diagnoses Diagnosis Chronic right shoulder pain Pain in joint, shoulder region documented in this encounter Additional Health Concerns Assessment Noted Time PHQ-9 Depression Total Score: 14 023 1:24 PM EDT documented as of this encounter Care Teams Flask Carrier Relationship Specialty Start Date End Date Jayda Patiño MD [address] [place] [address] PCP - General Family Medicine 04/05/19 documented as of this encounter
--- OUTSIDE RECORDS SUMMARY | 2024-07-05 14:00 | XMS_ITS | Encounter Summary ---
Author Organization [employer] Address [address] [facility] [address] 7t [place] [address] Care Team Providers Care Webbing Inspector Name Role Phone Jayda Patiño MD Primary Care Provide r Reason for Visit * Reason Comments Med Refill Encounter Details Date Type Department Care Team ([facility] st Contact Info) Description 06/13/2024 Refill [facility] [address] [place], [place] [phone] Jayda Patiño MD [address] [place] [address] Polyarthralgia Social History Tobacco Use Types Packs/Day Years [...] Description 07/12/2024 1:45 PM EDT Office Visit [facility] [address] [place] [address] Jayda Patiño MD [address] [place] [address] documented as of this encounter Visit Diagnoses Diagnosis Polyarthralgia Pain in joint, multiple sites documented in this encounter Additional Health Concerns Assessment Noted Time PHQ-9 Depression Total Score: 14 024 10:05 AM EST documented as of this encounter Care Teams Webbing Inspector Relationship Specialty Start Date End Date Jayda Patiño MD [address] [place] [address] PCP - General Family Medicine 04/05/19 documented as of this encounter
--- OUTSIDE RECORDS SUMMARY | 2024-07-05 14:00 | XMS_ITS | Encounter Summary ---
Author Organization [employer] [facility] Address [address] [facility] 7t [place] [address] Care Team Providers Care Director Of Pediatric Rehabilitation Name Role Phone Jayda Patiño MD Primary Care Provide r Reason for Visit * Reason Comments Med Refill Encounter Details Date Type Department Care Team (Late st Contact Info) Description 08/30/2022 Refill [facility] MED[facility]INE [address] [place], [place] [phone] Jayda Patiño MD [address] [place], [place] [phone] Chronic right shoulder pain Social History Tobacco [...] Description 07/12/2024 1:45 PM EDT Office Visit [facility] MEDICINE [address] [place] [address] [phone] Jayda Patiño MD [address] [place], [place] [phone] documented as of this encounter Visit Diagnoses Diagnosis Chronic right shoulder pain Pain in joint, shoulder region documented in this encounter Care Teams Director Of Pediatric Rehabilitation Relationship Specialty Start Date End Date Jayda Patiño MD [address] [place] [address] PCP - General Family Medicine 04/05/19 documented as of this encounter
--- OUTSIDE RECORDS SUMMARY | 2024-07-05 14:00 | XMS_ITS | Encounter Summary ---
Author Organization [facility] Address [address] [place] [address] Care Team Providers Care Inventory Associate And Driver Name Role Phone Victor Hugo Rodrigues MD Primary Care Provider Un available Community, Pcp Primary Care Provider Unavailabl e Jayda Rasheed MD Primary Care Provide r Unavailable Encounter Details Date Type Department Care Team Description 07/10/2016 Release of Information Medical Records [address] [place] [id number] Abstract, Provider Social History Tobacco Use Types Packs/Day Years Used Date Smoking Tobacco: Former Alcohol Use Standard Drinks/Week Comments No 0 (1 standard drink = 0.6 oz pur e alcohol) Sex Assigned at Date Recorded Not on file documented as of this encounter Plan of Treatment Not on file documented as of this encounter Visit Diagnoses Not on filedocumented in this encounter Care Teams Inventory Associate And Driver Relationship Specialty Start Date End Date Victor Hugo Rodrigues MD PCP - General Internal Medicine 12/22/15 Community, Pcp PCP - General Internal Medicine 09/23/16 06/15/23 Jayda Rasheed MD PCP - General Internal Medicine 06/16/23 documented as of this encounter
== END 2024-07-05 13:54 | disposition home or self-care (01) ==
LOC: HO.HUSH 10:55
PROVIDERS: PCP Internal Medicine; Visit Provider Urology
DX: Z87.442 Personal history of urinary calculi (principal); R82.992 Hyperoxaluria
CPT/HCPCS: 99213

== ENCOUNTER 2024-09-04 13:45 | Outpatient (AMB) | payer MEDICAID, SELFPAY ==
--- NOTE | 2024-09-04 13:54 | MHC.OFFVIS ---
Vital Signs 09/04/24 13:59 Height 5 ft 4 in Weight 249 lb 2 oz BMI 42.8 BP 143/87 H Blood Pressure Location Lt brachial Pulse 117 H Pulse Source Pulse Oximeter Pulse Oximetry (%) 95 Oxygen Delivery Method Room Air Intake Visit Reasons: 6 month follow up Intake Note: Patient presents follow up. no concerns Director Information Required: Yes Director Information Services: Director Information Present Director Information Name: Kevin [id number] Information Interpreted: non-clinical & clinical Allergies cephalexin [From KEFLEX] Allergy (Intermediate, Verified 09/04/24 14:04) RASH diazepam [From VALIUM] Allergy (Intermediate, Verified 09/04/24 14:04) Anxiety menthol [From BenGay] Allergy (Intermediate, Verified 09/04/24 14:04) Rash methyl salicylate [From BenGay] Allergy (Intermediate, Verified 09/04/24 14:04) Rash Penicillins Allergy (Intermediate, Verified 09/04/24 14:04) RASH HPI HPI 6 month follow up: Details: Assessment & Plan (1) GERD (gastroesophageal reflux disease): Code(s): K21.9 - Gastro-esophageal reflux disease without esophagitis Category: Medical (2) Chronic idiopathic constipation: Code(s): K59.04 - Chronic idiopathic constipation Category: Medical (3) Gastroparesis: Code(s): K31.84 - Gastroparesis Category: Medical (4) Tubular adenoma of colon: Comment: 07/2023 scopre=4 TA's repeat in 3 years Code(s): D12.6 - Benign neoplasm of colon, unspecified Category: Medical Plan [place] [employer] [employer] She continues to do very well. She continues on her reglan and Linzess, and has senna and magnesium as a back up.? She would like 90 day supply for her medications as this is less expensive her. She continues on her lansoprazole with good control of her GERD. Return office visit in 6 months Medications: Refilled lansoprazole 30 mg PO DAILY 90 caps 1RF K21.9 - Gastro-esophageal reflux disease without esophagitis linaclotide (Linzess) 290 mcg PO DAILY 90 caps 3RF 90 days K59.04 - Chronic idiopathic constipation metoclopramide HCl 5 mg PO TID 270 tabs 1RF K31.84 - Gastroparesis sennosides (senna) 17.2 mg (2 x 8.6 mg) PO BID PRN 180 tabs 1RF for constipation TODAYS VISIT [place] live She continues on her reglan, lanzoprazole and Linzess, and has senna and magnesium as a back up. She has intermittent gastric pain, but with conversation she is missing reglan doses. Next ov ? increase reglan or if resolved with better compliance. I have asked her to try to keep a log as to whether her pain occurs only when she misses her dose of Reglan, and advised her to take it as soon as she remembers even if it isn't in the 1/2 hour before meal timeframe. ROV 3 mos. PFS Medical History Bilateral kidney stones Arthritis of left acromioclavicular joint Bursitis of left shoulder Daytime sleepiness Tendonitis of left rotator cuff Hydronephrosis with obstructing calculus Medication monitoring encounter Pre-op examination Renal calculi Injury of tendon of right rotator cuff TONIO (acute kidney injury) Kidney stones History of depression HTN (hypertension) Gout, arthritis Rotator cuff tendonitis Class 2 obesity GERD (gastroesophageal reflux disease) Renal colic Fibromyalgia Osteoarthritis Surgical History History of endometrial ablation Hx of cystoscopy H/O lithotripsy History of esophagogastroduodenoscopy (EGD) Hx of colonoscopy Family History Father Diabetes mellitus Hypercholesteremia Heart attack HTN (hypertension) Mother Diabetes mellitus HTN (hypertension) Heart attack Hypercholesteremia Cardiovascular disease Brother Liver cancer Brother Pancreatic cancer Brother Lymphoma Sister Cervical cancer Sister Cirrhosis of liver Family/Other Cancer Family/Other Ovarian cancer Social History Household Members: Family Are you a primary medicare nurse to a significant other at home: No Do you presently have visiting nurse or other home services: No Alcohol intake: never Patient Tobacco Use Status: Former Tobacco user Tobacco use type: Cigarette Years Smoked: 25 +/- Second Hand Smoke Exposure: No Current occupational status: disabled Current occupation: rt handed Review of Systems Const Denies fatigue, Denies fever(s), Denies night sweats, Denies poor appetite and Denies weight loss ENT Reports Normal hearing present, Denies dental pain, Denies dysphagia, Denies hearing loss, Denies mouth pain, Denies odynophagia, Denies throat swelling, Denies tongue swelling and Reports other (Dentition adequate) Card Reports no additional complaints Resp Reports no additional complaints GI Details: Reports abdominal pain, Denies melena, Denies bloating, Denies hematochezia, Reports constipation, Denies GI cramping, Denies dysphagia, Denies excessive flatus, Reports early satiety, Reports heartburn, Denies diarrhea, Denies nausea, Denies odynophagia, Denies vomiting and Denies hematemesis Skin/Breast Denies pruritus, Denies lesions, Denies rash and Denies jaundice Neuro Reports Normal hearing present and Denies Abnormal speech present Endo Denies fatigue Aller/Immun Denies throat swelling and Denies tongue swelling Physical Exam Vital Signs: Last Vital Signs Pulse 117 H 09/04/24 13:59 BP 143/87 H 09/04/24 13:59 Pulse Ox 95 09/04/24 13:59 Oxygen Delivery Method Room Air 09/04/24 13:59 BMI result Body Mass Index 42.8 Const General: cooperative, no acute distress, well developed and well groomed Nutritional Appearance: well nourished and obese Orientation/consciousness: oriented to person, oriented to place and oriented to time Limitations: language barrier HEENT Head: Yes normocephalic and Yes atraumatic Eyes General: appearance normal, both eyes and all related structures Pupils: Equal, round and reactive pupils present Neck Neck: Yes normal visual inspection and Yes no lymphadenopathy Thyroid: Thyroid normal Resp Effort & Inspection: normal respiratory effort and able to speak in complete sentences Auscultation: clear to auscultation bilaterally Cardio Rate: regular rate Rhythm: regular rhythm Heart sounds: Normal, physiologic split S2 sound present Peripheral pulses: radial pulses present and posterior tibial pulses present GI Inspection: No distended, Yes Abdominal panniculus present and Yes obesity Palpation (GI): Soft to palpation, nontender, no guarding, not rigid and No hepatosplenomegaly present Percussion: Yes normal to percussion Auscultation: normal bowel sounds Rectal Exam - Female: deferred Skin General skin exam: no rashes or lesions noted, turgor normal, skin not dry, no jaundice, No spider nevi and no striae Rashes: no rashes Nails: normal Neuro General: oriented to person, oriented to place and oriented to time Cranial nerves: Yes Equal, round and reactive pupils present and Yes Normal hearing present Speech: No Abnormal speech present Extrem General: Yes normal to inspection, No clubbing, No cyanosis and No edema Psych Appearance: grossly normal and well kempt Mental Status: mental status grossly normal Speech and movement: Normal speech and movement present Affect: normal affect Attitude: cooperative Thought process: Normal thought process present and not confabulating Thought content: Normal thought content present Insight: Limited insight present (Psych) Judgement: Limited judgement present (Psych) Assessment & Plan Assessment & Plan (1) Gastroparesis: Code(s): K31.84 - Gastroparesis Category: Medical (2) Chronic idiopathic constipation: Code(s): K59.04 - Chronic idiopathic constipation Category: Medical (3) Morbid obesity with BMI of 40.0-44.9, adult: Code(s): E66.01 - Morbid (severe) obesity due to excess calories; Z68.41 - Body mass index [BMI] 40.0-44.9, adult Category: Medical Plan [place] #[place] diaz She continues on her reglan, lanzoprazole and Linzess, and has senna and magnesium as a back up. She has intermittent gastric pain, but with conversation she is missing reglan doses. Next ov ? increase reglan or if resolved with better compliance. I have asked her to try to keep a log as to whether her pain occurs only when she misses her dose of Reglan, and advised her to take it as soon as she remembers even if it isn't in the 1/2 hour before meal timeframe. ROV 3 mos. Coding Level of Care Code Est Pt Level 3 (23965) Diagnoses Gastroparesis K31.84 Chronic idiopathic constipation K59.04 Morbid obesity with BMI of 40.0-44.9, adult E66.01; Z68.41
[2024-09-04 13:59] VITALS: BP 143/87; PULSE 117; O2SAT 95; BMI 42.8
--- OUTSIDE RECORDS SUMMARY | 2024-09-04 14:55 | XMS_ITS | Encounter Summary ---
Author Organization [employer] Address [address] [facility] 7t [place] [address] Care Team Providers Care Smooth And Burr Worker Composites Name Role Phone Jayda Patiño MD Primary Care Provide r Encounter Details Date Type Department Care Team ([facility] st Contact Info) Description 02/02/[address] [facility] MEDICINE [address] [place] [address] Jayda Patiño MD [address] [place] [address] Social History Tobacco Use Types Packs/Day Years [...] Care Team (Late st Contact Info) Description 09/05/2024 2:00 PM EDT Telemedicine [facility] MEDICINE [address] [place], [place] [phone] Jayda Patiño MD [address] [place] [address] documented as of this encounter Procedures Procedure Name Priority Date/Time Associated Diagnosis Comments COLONOSCOPY Routine 05/10/2013 documented in this encounter Results * Colonoscopy (05/10/2013) Colonoscopy Normal Normal Narrative Donna Bal - 05/10/2013 Recommended 10 year follow up Historical Provider HEALTH MAINTENANCE Final Result documented in this encounter Visit Diagnoses Not on filedocumented in this encounter Additional Health Concerns Assessment Noted Time PHQ-9 Depression Total Score: 14 023 1:24 PM EDT documented as of this encounter Care Teams Smooth And Burr Worker Composites Relationship Specialty Start Date End Date Jayda Patiño MD [address] [place] [address] PCP - General Family Medicine 04/05/19 documented as of this encounter
--- OUTSIDE RECORDS SUMMARY | 2024-09-04 14:55 | XMS_ITS | Encounter Summary ---
Author Organization [employer] Address [address] [facility] 7t [place] [address] Care Team Providers Care Professor Of Criminal Justice Name Role Phone Jayda Patiño MD Primary Care Provide r Reason for Visit * Reason Comments Med Refill Encounter Details Date Type Department Care Team ([facility] st Contact Info) Description 03/26/2023 Refill [facility] MEDICINE [address] [place], [place] [phone] Name, MD Lorenzo [address] [place] [address] Hypertension, unspecified type Social History Tobacco Use [...] Info) Description 09/05/2024 2:00 PM EDT Telemedicine [facility] MEDICINE [address] [place] [address] Jayda Patiño MD [address] [place] [address] documented as of this encounter Visit Diagnoses Diagnosis Hypertension, unspecified type documented in this encounter Additional Health Concerns Assessment Noted Time PHQ-9 Depression Total Score: 14 023 1:24 PM EDT documented as of this encounter Care Teams Professor Of Criminal Justice Relationship Specialty Start Date End Date Jayda Patiño MD [address] [place] [address] PCP - General Family Medicine 04/05/19 documented as of this encounter
--- OUTSIDE RECORDS SUMMARY | 2024-09-04 14:55 | XMS_ITS | Encounter Summary ---
Author Organization [employer] Address [address] [facility] [address] 7[address] [place] [address] Care Team Providers Care Battery Container Inspector Name Role Phone Jayda Patiño MD Primary Care Provide r Reason for Visit * Reason Comments Med Refill Encounter Details Date Type Department Care Team ([facility] st Contact Info) Description 03/24/2023 Refill [facility] [address] [place], [place] [phone] Jayda Patiño MD [address] [place] [address] Vitamin D deficiency Social History Tobacco Use [...] Info) Description 09/05/2024 2:00 PM EDT Telemedicine [facility] MEDICINE [address] [place] [address] Jayda Patiño MD [address] [place] [address] documented as of this encounter Visit Diagnoses Diagnosis Vitamin D deficiency documented in this encounter Additional Health Concerns Assessment Noted Time PHQ-9 Depression Total Score: 14 023 1:24 PM EDT documented as of this encounter Care Teams Battery Container Inspector Relationship Specialty Start Date End Date Jayda Patiño MD [address] [place] [phone] PCP - General Family Medicine 04/05/19 documented as of this encounter
--- OUTSIDE RECORDS SUMMARY | 2024-09-04 14:55 | XMS_ITS | Encounter Summary ---
Author Organization [employer] Address [address] [facility] [address] 7t [place] [address] Care Team Providers Care Digital Media Specialist Name Role Phone Jayda Patiño MD Primary Care Provide r Reason for Visit * Reason Comments Med Refill Encounter Details Date Type Department Care Team ([facility] st Contact Info) Description 01/14/2024 Refill [facility]INE [address] [place], [place] [phone] Celena Farias DO [address] [place] [address] Chronic rhinitis Social History Tobacco Use Types [...] Info) Description 09/05/2024 2:00 PM EDT Telemedicine [facility] MEDICINE [address] [place] [address] Jayda Patiño MD [address] [place] [phone] documented as of this encounter Visit Diagnoses Diagnosis Chronic rhinitis documented in this encounter Additional Health Concerns Assessment Noted Time PHQ-9 Depression Total Score: 14 024 10:05 AM EST documented as of this encounter Care Teams Digital Media Specialist Relationship Specialty Start Date End Date Jayda Patiño MD [address] [place] [address] PCP - General Family Medicine 04/05/19 documented as of this encounter
--- OUTSIDE RECORDS SUMMARY | 2024-09-04 14:55 | XMS_ITS | Encounter Summary ---
Author Organization [employer] Address [address] [facility] [address] 7t [place] [address] Care Team Providers Care Harness Preparer Name Role Phone Jayda Patiño MD Primary Care Provide r Reason for Visit * Reason Comments Med Refill Encounter Details Date Type Department Care Team ([facility] st Contact Info) Description 04/04/2023 Refill [facility] MEDICINE [address] [place], [place] [phone] Marilee Whittaker MD [address] [place], [place] [phone] Chronic migraine without aura without status migrainosus, [...] t he electric, gas, oil or water [employer] threatened to shut off services in your [...] Info) Description 09/05/2024 2:00 PM EDT Telemedicine [facility] MEDICINE [address] [place] [address] Jayda Patiño MD [address] [place] [address] documented as of this encounter Visit Diagnoses Diagnosis Chronic migraine without aura without status migrainosus, not intractable documented in this encounter Additional Health Concerns Assessment Noted Time PHQ-9 Depression Total Score: 14 023 1:24 PM EDT documented as of this encounter Care Teams Harness Preparer Relationship Specialty Start Date End Date Jayda Patiño MD [address] [place] [phone] PCP - General Family Medicine 04/05/19 documented as of this encounter
--- OUTSIDE RECORDS SUMMARY | 2024-09-04 14:55 | XMS_ITS | Encounter Summary ---
Author Organization [employer] Address [address] [facility] [address] 7t [place] [address] Care Team Providers Care Rice Milling Supervisor Name Role Phone Jayda Patiño MD Primary Care Provide r Reason for Visit * Reason Comments Med Refill Encounter Details Date Type Department Care Team ([facility] st Contact Info) Description 02/20/2024 Refill [facility] MEDICINE [address] [place], [place] [phone] Celena Farias DO [address] [place] [address] Chronic rhinitis Social History Tobacco Use Types [...] Info) Description 09/05/2024 2:00 PM EDT Telemedicine [facility] MEDICINE [address] [place] [phone] Jayda Patiño MD [address] [place] [address] documented as of this encounter Visit Diagnoses Diagnosis Chronic rhinitis documented in this encounter Additional Health Concerns Assessment Noted Time PHQ-9 Depression Total Score: 14 024 10:05 AM EST documented as of this encounter Care Teams Rice Milling Supervisor Relationship Specialty Start Date End Date Jayda Patiño MD [address] [place] [phone] PCP - General Family Medicine 04/05/19 documented as of this encounter
--- OUTSIDE RECORDS SUMMARY | 2024-09-04 14:55 | XMS_ITS | Encounter Summary ---
Author Organization [employer] Address [address] [facility] 7t [place] [address] Care Team Providers Care Tack Coverer Name Role Phone Jayda Patiño MD Primary Care Provide r Reason for Visit * Reason Comments Med Refill Encounter Details Date Type Department Care Team ([facility] st Contact Info) Description 02/24/2023 Refill [facility] MEDICINE [address] [place] [address] Jayda Patiño MD [address] [place] [address] Chronic migraine without aura without status migrainosus, [...] Info) Description 09/05/2024 2:00 PM EDT Telemedicine [facility] MEDICINE [address] [place] [phone] Jayda Patiño MD [address] [place] [address] documented as of this encounter Visit Diagnoses Diagnosis Chronic migraine without aura without status migrainosus, not intractable Vitamin D deficiency Chronic rhinitis Hyperlipidemia, unspecified hyperlipidemia type documented in this encounter Additional Health Concerns Assessment Noted Time PHQ-9 Depression Total Score: 14 023 1:24 PM EDT documented as of this encounter Care Teams Tack Coverer Relationship Specialty Start Date End Date Jayda Patiño MD [address] [place] [phone] PCP - General Family Medicine 04/05/19 documented as of this encounter
--- OUTSIDE RECORDS SUMMARY | 2024-09-04 14:55 | XMS_ITS | Encounter Summary ---
Author Organization [employer] Address [address] [facility] 7t [place] [address] Care Team Providers Care Associate Professor Of Physics Name Role Phone Jayda Patiño MD Primary Care Provide r Reason for Visit * Reason Comments Med Refill Encounter Details Date Type Department Care Team ([facility] st Contact Info) Description 12/31/2023 Refill [facility] MEDICINE 230 [place], [place] [phone] Marilee Whittaker MD [address] [place], [place] [phone] Chronic migraine without aura without status migrainosus, [...] Info) Description 09/05/2024 2:00 PM EDT Telemedicine [facility] MEDICINE [address] [place] [address] Jayda Patiño MD [address] [place] [phone] documented as of this encounter Visit Diagnoses Diagnosis Chronic migraine without aura without status migrainosus, not intractable documented in this encounter Additional Health Concerns Assessment Noted Time PHQ-9 Depression Total Score: 14 024 10:05 AM EST documented as of this encounter Care Teams Associate Professor Of Physics Relationship Specialty Start Date End Date Jayda Patiño MD [address] [place] [phone] PCP - General Family Medicine 04/05/19 documented as of this encounter
--- OUTSIDE RECORDS SUMMARY | 2024-09-04 14:55 | XMS_ITS | Encounter Summary ---
Author Organization [employer] Address [address] [facility] 7t [place] [address] Care Team Providers Care Graphotype Operator Name Role Phone Jayda Patiño MD Primary Care Provide r Reason for Visit * Reason Comments Med Refill Encounter Details Date Type Department Care Team ([facility] st Contact Info) Description 04/29/[address] [facility] MED[facility] [address] [place], [place] [phone] Name, MD Lorenzo [address] [place] [address] Hypertension, unspecified type Social History Tobacco Use [...] Info) Description 09/05/2024 2:00 PM EDT Telemedicine [facility] MED[facility] [address] [place] [address] Jayda Patiño MD [address] [place] [address] documented as of this encounter Visit Diagnoses Diagnosis Hypertension, unspecified type documented in this encounter Additional Health Concerns Assessment Noted Time PHQ-9 Depression Total Score: 14 023 1:24 PM EDT documented as of this encounter Care Teams Graphotype Operator Relationship Specialty Start Date End Date Jayda Patiño MD [address] [place] [address] PCP - General Family Medicine 04/05/19 documented as of this encounter
--- OUTSIDE RECORDS SUMMARY | 2024-09-04 14:55 | XMS_ITS | Encounter Summary ---
Author Organization [employer] Address [address] [facility] [address] 7[address] [place] [address] Care Team Providers Care Airconditioning Engineer Name Role Phone Jayda Patiño MD Primary Care Provide r Reason for Visit * Reason Comments Med Refill Encounter Details Date Type Department Care Team ([facility] st Contact Info) Description 01/14/2024 Refill [facility] MED[facility]INE [address] [place], [place] [phone] Jayda Patiño MD [address] [place] [address] Health care maintenance Social History Tobacco Use [...] Info) Description 09/05/2024 2:00 PM EDT Telemedicine [facility] [address] [place] [phone] Jayda Patiño MD [address] [place] [phone] documented as of this encounter Visit Diagnoses Diagnosis Health care maintenance documented in this encounter Additional Health Concerns Assessment Noted Time PHQ-9 Depression Total Score: 14 024 10:05 AM EST documented as of this encounter Care Teams Airconditioning Engineer Relationship Specialty Start Date End Date Jayda Patiño MD [address] [place] [phone] PCP - General Family Medicine 04/05/19 documented as of this encounter
--- OUTSIDE RECORDS SUMMARY | 2024-09-04 14:55 | XMS_ITS | Clinical Summary ---
Author Organization [employer] Address [address] [place] [address] 7t [place] [address] Care Team Providers Care Blow Mold Technician Name Role Phone Jayda Patiño MD Primary Care Provide r Allergies Active Allergy Reactions Criticality Noted Date Comments Cephalexin 08/18/2017 Diazepam 05/03/2013 Other reaction(s): bad reaction - trouble breathi Metronidazole Dermatitis 01/05/2016 nitroimidazoles Penicillins 04/27/2010 Other reaction(s): unspecified Medications busPIRone (Buspar) 5 MG tablet YESSENIA 1 TABLETA DOS VECES AL NORI 09/28/19 24 Active allopurinol (Zyloprim) 100 MG tablet Take 100 mg by mouth Once per day. 09/24/19 24 Active doxepin (SINEquan) 10 MG capsule TAKE 1 CAPSULE BY MOUTH AT BEDTIME FOR SLEEP PARA DORMIR 09/28/19 24 Active clonazePAM (KlonoPIN) 0.5 MG tablet TAKE 1 TABLET BY MOUTH TWICE A WEEK NEEDED 06/22/19 24 Active lansoprazole (Prevacid) [address] capsule Take 30 mg by mouth Once per day. Active DULoxetine (Cymbalta) [address] capsule TAKE 1 CAPSULE BY MOUTH ONCE A DAY YESSENIA 1 CAPSULA AL NORI Active metoclopramide (Reglan) 5 MG tablet Take 5 mg by mouth 3 times daily. 09/01/19 24 Active magnesium oxide (Mag-Ox) 400 (240 Mg) MG tablet Take 400 mg by mouth 2 times daily. 08/28/19 24 Active Linzess 290 MCG capsule Take 290 mcg by mouth Once per day. Active traMADol (Ultram) 50 MG tablet TAKE 1 TABLET ORALLY EVERY 8 HOURS NEEDED FOR PAIN Active Senna-Time 8.6 MG tablet TAKE 2 TABLETS ORALLY 2 TIMES A DAY NEEDED FOR FOR CONSTIPATION 11/18/19 24 Active SUMAtriptan (Imitrex) 25 MG tabletIndications: Migraine without aura, not refractory TAKE 1 TAB ORALLY AFTER MIGRAINE ONSET MAY REPEAT AFTER 2HRS IF HEADACHE RETURNS,MAX 200MG IN 24HRS 9 tablet 3 04/12/20 24 Active folic acid (Folvite) 1 MG tabletIndications: Health care maintenance Take 1 tablet (1,000 mcg) by mouth Once per day. 90 tablet 1 04/12/20 24 Active hydroCHLOROthiazid e 12.5 MG tabletIndications: Hypertension, unspecified type TAKE 1 TABLET BY MOUTH EVERY DAY IN THE MORNING (12.5 MG) 90 tablet 1 04/12/20 24 Active meclizine (Antivert) 25 MG tabletIndications: Vertigo Take 1 tablet (25 mg) by mouth if needed in the morning, at noon, and at bedtime for dizziness. 30 tablet 04/12/20 24 Active cholecalciferol (D3-1000) 25 MCG (1000 UT) capsuleIndications :Vitamin D deficiency TAKE 1 CAPSULE BY MOUTH EVERY DAY 90 capsule 1 04/23/20 24 Active loratadine (Claritin) 10 MG tabletIndications: Chronic rhinitis TAKE 1 TABLET BY MOUTH EVERY DAY NEEDED 90 tablet 1 04/23/20 24 Active pravastatin (Pravachol) 40 MG tabletIndications: Hyperlipidemia, unspecified hyperlipidemia type TAKE 1 TABLET BY MOUTH EVERYDAY 90 tablet 05/16/19 25 Active topiramate 50 MG tabletIndications: Chronic migraine without aura without status migrainosus, not intractable TAKE 1 TABLET BU MOUTH TWICE A DAY 180 tablet 05/16/19 25 Active meloxicam (Mobic) 15 MG tabletIndications: Polyarthralgia TOME 1 TABLETA POR VIA ORAL TODOS [place] 30 tablet 1 07/18/19 25 Active phentermine 15 MG capsuleIndications :Class 3 severe obesity due to excess calories with serious comorbidity and body mass index (BMI) of 40.0 to 44.9 in adult Take 1 capsule (15 mg) by mouth before breakfast. 30 capsule 07/27/19 25 Active Active Problems Problem Noted Date Diagnosed Date Class 3 severe obesity due t o excess calories with serious comorbidity and body mass index (BMI) of 40.0 to 44.9 in adult 07/12/2024 Assessment & Plan (07/12/2024 4:32 PM EDT): Extensive counseling about healthy diet and exercise done today I decided with her I will prescribe for her phentermine 15 mg daily side effects of this medication were reviewed with patient Prediabetes 07/12/2024 COVID-19 virus infection 04/12/2024 Assessment & Plan [...] 09/06/2022 Essential hypertension 09/06/2022 Assessment & Plan (07/12/2024 4:31 PM EDT): Advise low-sodium diet and weight reduction I advised to take her blood pressure medication every day without missing any dose I emphasized the importance of her blood pressure medications I advised for her to look blood pressure at home and report back if blood pressure is persistently high of 140/90 in spite of taking her medication as prescribed Assessment & Plan (04/12/2024 1:44 PM EST): [...] Insomnia 07/02/2016 Fibromyalgia 07/02/2016 Assessment & Plan (07/12/2024 4:32 PM EDT): Patient was educated about multidisciplinary approach for her condition, it was advise cardiovascular exercise, maintain hydration, treat anxiety/depression and take medications as directed I will prescribe for her Flexeril 10 mg every 8 hours as needed I counseled her about the side effects somnolence she is aware she cannot drive while taking this medication Assessment & Plan (06/14/2023 4:51 PM EST): [...] Encounters Date Type Department Care Team Description 08/22/2024 Refill [facility] MED[facility]INE [address] [facility], [place] [phone] Jayda Patiño MD Pain of left heel 07/26/2024 Orders Only [facility] MEDICINE [address] [place] [address] Jayda Patiño MD Class 3 severe obesity due to excess calories with serious comorbidity and body mass index (BMI) of 40.0 to 44.9 in adult 07/26/2024 Telephone [facility]INE [address] [place] [phone] Jayda Patiño MD 07/26/2024 Refill [facility]INE [address] [place] [address] Jayda Patiño MD Class 3 severe obesity due to excess calories with serious comorbidity and body mass index (BMI) of 40.0 to 44.9 in adult 07/24/2024 Orders Only [facility] [address] [place] [address] ProviderJennie MD 07/16/2024 Refill [facility] MED[facility]INE [address] [place] [address] Jayda Patiño MD Health care maintenance; Polyarthralgia 07/12/2024 1:45 PM EDT Office Visit [facility] [address] [place] [phone] Jayda Patiño MD Essential hypertension (Primary Dx); Class 3 severe obesity due to excess calories with serious comorbidity and body mass index (BMI) of 40.0 to 44.9 in adult (CMS/[facility]); Prediabetes; Fibromyalgia 07/12/2024 Travel 07/10/2024 Refill [facility] [address] [place] [phone] Jayda Patiño MD Hyperlipidemia, unspecified hyperlipidemia type; Hypertension, unspecified type; Chronic migraine without aura without status migrainosus, not intractable 07/06/2024 Population Health Risk Score Community [facility] () Department [address] [place] [phone] Provider, Population Health Generic 07/04/2024 Patient Outreach [facility] [address] [place] [address] [phone] Jayda Patiño MD Pre-visit Planning ((Unable to reach for PVP screening, LVM)) 06/13/2024 Refill [facility] [address] [place] [phone] Jayda Patiño MD Polyarthralgia from Last 3 Months Immunizations Name Administration [...] Answer Date Recorded Patient Health Questionnaire-9 Score 0 07/12/2024 Patient Health Questionnaire-9 Score 0 07/12/2024 Last PHQ-9: Questionnaire Data Not on file 0 07/12/2024 Housing Stability Answer Date Recorded What is your housing situation today? I have luma ortiz 07/12/[address] you li ve. Do you have problems with any of the following? None of the above 07/12/2024 Food Insecurity Answer Date Recorded Within the past 12 months, y ou worried that your food would run out before you got money to buy more: Never True 07/12/2024 Within the past 12 months,th e food you bought just didn't last and you didn't have enough money to get more: Never True Transportation Answer Date Recorded In the past 12 months, has l ack of transportation kept you from medical appts, meetings, work or from getting things needed for daily living? No 07/12/2024 Utilities Answer Date Recorded In the past 12 months, has t he electric, gas, oil or water company threatened to shut off services in your home? No 07/12/2024 Depression Answer Date Recorded Patient Health Questionnaire-2 Score 0 07/12/2024 Internet Access Answer Date Recorded Internet Access Q1 No 07/12/2024 Internet Access Q2 I do not want or need it 06/24 Comments Unknown Sex and Gender Information Value Date Recorded Sex Assigned at Female 02/22/2022 10:15 AM EDT Legal Sex Female 10:15 AM EDT Gender Identity Female 02/22/2022 10:15 AM EDT Sexual Orientation Choose not to disclose 2021 10:15 AM EDT Last Filed Vital Signs Vital Sign Reading Time Taken Comments Blood Pressure 159/93 07/12/2024 1:36 PM EDT Pulse 96 07/12/2024 1:36 PM EDT Temperature 36.1 ??C (97 ??F) 07/12/2024 1:36 PM EDT Respiratory Rate 20 07/12/2024 1:36 PM EDT Oxygen Saturation 100% 04/12/2024 1:12 PM EST Inhaled Oxygen Concentration - - Weight 114 kg (252 lb 6.4 oz) 07/12/2024 1:36 PM EDT Height 160 cm (5' 3 ) 07/12/2024 1:36 PM EDT Body Mass Index 44.71 07/12/2024 1:36 PM EDT Plan of Treatment Upcoming Encounters Date Type Department Care Team (Late st Contact Info) Description 09/05/2024 2:00 PM EDT Telemedicine [facility] MED[facility]INE [address] [place] [address] Jayda Patiño MD [address] [place] [address] Health Maintenance Due Date Last Done Comments CT Colonography 1966 FIT DNA/Cologuard 1965 FIT 1965 FOBT 1965 HIV Screening 1965 Sigmoidoscopy 1965 Hepatitis B Vaccines (1 of 3 - 19+ 3-dose series) 1985 Pneumococcal Vaccine: 50+ Years (1 of 1 - PCV) 2016 Zoster Vaccines (2 of 3) 10/10/2018 08/15/2018 DTaP/Tdap/Td Vaccines (2 - Td or Tdap) 06/05/2022 06/05/2012, 05/18/2005, 01/25/1995 COVID-19 Vaccine (1 - season) 2023 Influenza Vaccine (#1) 2023 , 03/17/2021, 01/08/2020, Additional history exists Mammogram 01/23/2025 01/24/2024, 12/25, 01/13/2022, Additional history exists Diabetes: Hemoglobin A1C 04/23/2025 024, 09/06/2022, 01/11/2022, Additional history exists Alcohol/Substance Use Screening 07/12/2025 07/12/2024 Depression Screening 07/12/2025 07/12/2024, 07/13/19 SDOH Screening 07/12/2025 07/12/2024 Tobacco Screening 07/12/2025 07/12/2024 Colonoscopy 08/17/2026 08/18/2023, 05/10/2013 Colorectal Cancer Screening 08/17/2026 Cervical Cancer Screening 06/30/2028 HPV/Cotest 06/30/2028 07/01/2023, 06/14/2019 Pap Smear 06/30/2028 07/01/2023 Lipid Panel 04/23/2029 04/23/2024, 08/23, 01/11/2022, Additional history exists RSV Patients and [...] Procedure Name Priority Date/Time Associated Diagnosis Comments HEMOGLOBIN A1C Routine 04/23/2024 1:38 PM EST Essential hypertension LIPID PANEL, STANDARD Routine 04/23/2024 1:38 PM EST Essential hypertension BI MAMMOGRAM SCREENING TOMOSYNTHESIS BILATERAL Routine 01/24/2024 12:35 PM EDT HM COLONOSCOPY Routine 08/18/2023 10:07 AM EDT HPV MRNA E6/E7 REFLEX TO HPV 16, 18/45 Routine 07/01/2023 2:31 PM EST PAP SMEAR Routine 07/01/2023 2:31 PM EST Encounter for Papanicolaou smear for cervical cancer screening ZZZ HISTORICAL HEPATITIS C AB W/REFL TO HCV RNA, QN, PCR Routine 09/16/2020 11:17 AM EDT from Last 3 Months or Most Recently Relevant to Health Maintenance Results * Hemoglobin A1c (04/23/2024 1:38 PM EST) Hemoglobin A1c 5.8 <6.0 % [facility] Comment:Hemoglobin A1C Refer ence Range Adults: 4.8 - 6.0 % Non diabetic: < 6.0 % Goal: < 7.0 %Additional Action Suggested: > 8.0 %Note: Hemoglobin A1c results are invalid for patients with abnormal amounts of HbF. Blood transfusions may impact the HbA1c concentration in the patient sample. Estimated Average Glucose 120 mg/dL [facility] Comment:eAG = Estimated ave rage glucose which is %A1C expressed asaverage glucose, using the formula of the T0O-WuitkifUwxaguq Glucose study (ADAG), Diabetes Care, Vol.31,#8,2007 Blood Venous blood specimen / Unknown 04/23/2024 1:38 PM EST 04/23/2024 4:11 PM EST us Jayda Mcelroy MD LAB BLOOD ORDERABLES Final Result Performing Organization Address City/[facility]/ZIP Co de Phone Number [facility] [address] [place] [address] [phone] * (ABNORMAL) Lipid Panel, Standard (04/23/2024 1:38 PM EST) Triglycerides 319(H) <150 mg/dL [facility] Comment:Desirable Triglyceri de: less than 150 mg/dLBorderline High Triglyceride 150-199 mg/dLHigh Triglyceride: 200-499 mg/dLVery High Triglyceride: greater than or equal to 5OO mg/dL Cholesterol 191 <200 mg/dL [facility] Comment:Desirable Cholestero l: less than 200 mg/dLBorderline High Cholesterol: 200-239 mg/dLHigh Cholesterol: greater than 239 mg/dL LDL Cholesterol Calculated 97 <100 mg/dL [facility] Comment:Desirable LDL: less than 100 mg/dLNear Optimal/Above Optimal LDL: 110- 129 mg/dLBorderline High LDL: 130-159 mg/dLHigh LDL: 160-189 mg/dLVery High LDL: greater than or equal to 190 mg/dL HDL Cholesterol 31(L) >40 mg/dL [facility] Comment:Desirable HDL: great er than 40 mg/dL Note: This HDL assay may give artificially low results in patients with liver disease. Blood Venous blood specimen / Unknown 04/23/2024 1:38 PM EST 04/23/2024 4:11 PM EST us Jayda Mcelroy MD LAB BLOOD ORDERABLES Final Result Performing Organization Address City/[facility]/ZIP Co de Phone Number [facility] [address] [place] [phone] * BI Mammogram Screening Tomosynthesis Bilateral (01/24/2024 12:35 PM EDT) Anatomical Region Laterality Modality Breast Bilateral Mammography 01/24/2024 12:3 5 PM EDT Narrative 02/03/2024 9:07 AM EDT ? [facility] ? [address] ?[place] [address] ? Mammography Report ? Signed ? Patient: Paul Ruiz,Milady ?MR#: [id number] ?? [id number] ? : 1965 ?Acct:[id number] ? Age/Sex: 58 / F ?ADM Date: 01/24/24 ? Loc: HO.MAMMO ? Attending Dr: Jayda Mcelroy MD ? Ordering Physician: Jayda Patiño MD ?Results: ?? 1Negative ? Date of Service: 01/24/24 ?Follow Up: 1 Year From Orig ?? inal Mammogram ? Procedure(s): MM tomosynthesis screening BI ?? Accession Number(s): [id number] ? cc: Jayda Patiño MD ? EXAMINATION: [...] Ines Velazquez DO ??02/03/2024 09:04 AM EDT ? Dictated By: ?Maria Ines Velazquez DO ? Signed By: ?<Electronically signed by Maria Ines Velazquez, DO in OV> ? 02/03/24 0904 ? DD/ 1235 ? TD/TT: 01/24/24 1250 ? Kiln Hand: ? Procedure Note Kylie, Judie - 02/03/2024 [facility] [address] [place], [place] [address] Mammography Report Signed Patient: Milady Dean#: [id number] : 1965Acct:[id number] Age/Sex: 58 / FADM Date: 01/24/24 Loc: HO.MAMMO Attending Dr: Jayda Mcelroy MD Ordering Physician: Jayda Patiño MDResults: 1Negative Date of Service: 01/24/24Follow Up: 1 Year From Orig inal Mammogram Procedure(s): MM tomosynthesis screening BI Accession Number(s): [id number] cc: Jayda Patiño MD EXAMINATION: MM SCREENING [...] 02/03/24 0904 DD/ 1235 TD/TT: 01/24/24 1250 Kiln Hand: Jayda Mcelroy MD IMG BI PROCEDURES Gabriel kristen Result - Final * Hm Colonoscopy (08/18/2023 10:07 AM EDT) Pathologist [facility] Colonoscopy Normal Normal Narrative Donna Bal - 08/18/2023 10:07 AM EDT Repeat Colonoscopy in 3 years due to polyps and fair prep on right side or earlier if clinically indicated ??see the external hospital admission note on 08/18/2023 Historical Provider [facility] Edited Result - Final * HPV mRNA E6/E7 w/Reflex to HPV Genotypes 16, 18/45 (07/01/2023 2:31 PM EST) Pathologist [facility] HPV nRNA E6/E7 Not Detected Not Detected [facility] Comment:Methodology: Transcr iption-Mediated AmplificationThis assay detects E6/E7 viral messenger RNA (mRNA) from 14high-risk HPV types (16,18,31,33,35,39,45,51,52,56,58,59,66,68).Cervical sources are required for HPV testing.If a vaginal source from a patient who has had atotal hysterectomy with removal of cervix wassubmitted, please contact the testing laboratoryfor alternative testing options.For additional information, please refer tohttp://education.[employer]/faq/IYN862o1(This link if provided for information/educational purposes only.)THIS TEST WAS PERFORMED AT:[employer] [place] [phone] SANCHEZ MD HPV mRNA E6/E7 TNP [facility] HPV 16 RNA TNP [facility] HPV 18/45 RNA TNP [facility] 07/01/2023 2:31 PM EST 07/04/2023 8:45 AM EDT [facility] LAB CYTOLOGY ORDERABLES Final Result [facility] [address] [place] [phone] [phone] * Pap Smear (07/01/2023 2:31 PM EST) Swab Cervix uteri structure / Unknown 07/01/2023 2:31 PM EST 07/04/2023 8:45 AM EDT Narrative [facility] - 07/12/2023 9:30 AM EDT ----- ------- Name: Milady Dean ? Age/Sex: 58/F ? : 1965 Unit#: [id number] ?? Attend Dr: Lora Wise ?Re07/01/23 ?Status: DEP REF ? Location: HO.HHCLNP ? Disch: ? ----- ------- SPEC : [id number] ? RECD: 07/04/23 ? STATUS: ??SOUT ? REQ NUM: [id number] ? TAMEKA: 07/01/23 ? SUBM DR: Lora Wise ? ENTERED: ??07/04/23 ?SP TYPE: Pap Smr ?OTHR DR: ? [...] 66, 68) ?? HPV testing performed by [facility], [place], [place]. ??See reference laboratory ?? portion of the EMR for entire report. ?Clinical Information LMP: Postmenopausal Previous PAP test: Unknown date/findings ? Material Received ?? ThinPrep-Vaginal/Cervical ----- ------- Signed (signature on file) JEROME Jimenez (ASCP) 07/12/23 0930 ? ----- ------- ? END OF REPORT ? [facility] CYTOLOGY ORDERABLES Final Result [facility] [address] [place] [phone] * HEPATITIS C AB W/REFL TO HCV RNA, QN, PCR (09/16/2020 11:17 AM EDT) HEPATITIS C ANTIBODY NON-REACT KYE NON-REACT KYE [facility] INDEX 0.01 <1.00 [facility] Comment: ?? HCV antibody was non-reactive. There is no laboratory ?? evidence of HCV infection. ?? In most cases, no further action is required. However, if recent HCV exposure is suspected, a test for HCV RNA (test code 58148) is suggested. ?? For additional information please refer to http://education.[employer]/faq/MPU85d0 (This link is being provided for informational/ educational purposes only.) ?? 09/16/2020 11:1 7 AM EDT us Jayda Mcelroy MD HISTORICAL/NON ORDERA BLE LABS Final Result [facility] Anywhere [address] from Last 3 Months or Most Recently Relevant to Health Maintenance Insurance [facility] C3 Care Teams Blow Mold Technician Relationship Specialty Start Date End Date Jayda Patiño MD [address] [place] [address] PCP - General Family Medicine 04/05/19
--- OUTSIDE RECORDS SUMMARY | 2024-09-04 14:55 | XMS_ITS | Clinical Summary ---
Author Organization [employer] [facility] it Address [address] [place] [address] Care Team Providers Care Quality Measurement Specialist Name Role Phone Jayda Patiño MD Primary Care Provide r Surgical History Surgery Date Site/Laterality Comments BUNIONECTOMY 2014 Left PROCEDURE: [place] CORRJ HLX VLGS BNCTY SESMDC W/DOUBLE OSTEOTOMY OTHER SURGICAL HISTORY 12/28/12 PROCEDURE: OUTSIDE PAP SMEAR TUBAL LIGATION PROCEDURE: HISTORICAL TUBAL LIGATION EYE SURGERY Left PROCEDURE: HISTORICAL EYE SURGERY; COMMENT: EYELID CERVICAL BIOPSY W/ LOOP ELECTRODE EXCISION PROCEDURE: WV CONIZATION CERVIX W/WO D&C RPR ELTRD EXC; [...] 01/05/2016 DX:Vitamin D deficiency Recurrent major depression (CMS/HCC V24) 01/05/20 16 DX:Recurrent major depression (HCC) Chronic abdominal pain [...] or Tdap) 06/05/2022 06/05/2012, 05/18/2005 COVID-19 Vaccine ( - 2023-2 5 season) 2023 Influenza Vaccine (Season Ended) 2024 01/13/2016, 02/27/2015 HIB Vaccines Aged Out No longer [...] age to complete this topic Meningococcal B Vaccine Aged Out No l onger eligible based on patient's age to complete [...] age to complete this topic Care Teams Quality Measurement Specialist Relationship Specialty Start Date End Date Jayda Patiño MD [address] [place] [phone] PCP - General 06/16/23
--- OUTSIDE RECORDS SUMMARY | 2024-09-04 14:55 | XMS_ITS | Encounter Summary ---
Author Organization [employer] Address [address] [facility] [address]t [place] [address] Care Team Providers Care Cake Wringer Name Role Phone Jayda Patiño MD Primary Care Provide r Reason for Visit * Reason Comments Med Refill Encounter Details Date Type Department Care Team ([facility] st Contact Info) Description 04/29/2023 Refill [facility] [address] [place], [place] [phone] Marilee Whittaker MD [address] [place], [place] [phone] Hyperlipidemia, unspecified hyperlipidemia type; Chronic migraine without [...] Info) Description 09/05/2024 2:00 PM EDT Telemedicine [facility] [address] [place] [phone] Jayda Patiño MD [address] [place] [address] documented as of this encounter Visit Diagnoses Diagnosis Hyperlipidemia, unspecified hyperlipidemia type Chronic migraine without aura without status migrainosus, not intractable Chronic rhinitis documented in this encounter Additional Health Concerns Assessment Noted Time PHQ-9 Depression Total Score: 14 023 1:24 PM EDT documented as of this encounter Care Teams Cake Wringer Relationship Specialty Start Date End Date Jayda Patiño MD [address] [place] [phone] PCP - General Family Medicine 04/05/19 documented as of this encounter
--- OUTSIDE RECORDS SUMMARY | 2024-09-04 14:56 | XMS_ITS | Encounter Summary ---
Author Organization [employer] Address [address] [place] [address] 7t [place] [address] Care Team Providers Care Agile Coach Name Role Phone Jayda Patiño MD Primary Care Provide r Reason for Visit * Reason Comments Med Refill Encounter Details Date Type Department Care Team ([facility] Contact Info) Description 07/02/2022 Refill [facility] MEDICINE [address] [place] [address] Lia Edwards FNP [address] [place] [address] Chronic right shoulder pain Social History Tobacco [...] Department Care Team (Late Contact Info) Description 09/05/2024 2:00 PM EDT Telemedicine [facility] MEDICINE [address] [place] [address] Jayda Patiño MD [address] [place] [address] documented as of this encounter Visit Diagnoses Diagnosis Chronic right shoulder pain Pain in joint, shoulder region documented in this encounter Care Teams Agile Coach Relationship Specialty Start Date End Date Jayda Patiño MD 230 [place] [address] PCP - General Family Medicine 04/05/19 documented as of this encounter
--- OUTSIDE RECORDS SUMMARY | 2024-09-04 14:56 | XMS_ITS | Encounter Summary ---
Author Organization [facility] Address [address] [place] [address] Care Team Providers Care Airborne Sensor Specialist Name Role Phone Community, Pcp Primary Care Provider Jayda Avila MD Primary Care Provide r Unavailable Encounter Details Date Type Department Care Team Description 10/13/2016 Atomic Process Engineer Report Medical Records [address] [place] [address] Zay Melton MD Social History Tobacco Use [...] on filedocumented in this encounter Care Teams Airborne Sensor Specialist Relationship Specialty Start Date End Date Community, Pcp PCP - General Internal Medicine 09/23/16 06/15/23 Jayda Rasheed MD PCP - General Internal Medicine 06/16/23 documented as of this encounter
--- OUTSIDE RECORDS SUMMARY | 2024-09-04 14:56 | XMS_ITS | Encounter Summary ---
Author Organization [employer] Address [address] [place] [address] 7t [place] [address] Care Team Providers Care Research Assistant Professor Name Role Phone Jayad Patiño MD Primary Care Provide r Reason for Visit * Reason Comments Med Refill Encounter Details Date Type Department Care Team (Late Contact Info) Description 12/04/2022 Refill [facility] MEDICINE [address] [place] [address] [phone] Jayda Patiño MD 230 [place], [place] [phone] Gastro-esophageal reflux disease without esophagitis Social History [...] Info) Description 09/05/2024 2:00 PM EDT Telemedicine [facility] MEDICINE [address] [place] [address] Jayda Patiño MD 230 [place], [place] [phone] documented as of this encounter Visit Diagnoses Diagnosis Gastro-esophageal reflux disease without esophagitis documented in this encounter Additional Health Concerns Assessment Noted Time PHQ-9 Depression Total Score: 14 023 1:24 PM EDT documented as of this encounter Care Teams Research Assistant Professor Relationship Specialty Start Date End Date Jayda Patiño MD 230 [place] [address] PCP - General Family Medicine 04/05/19 documented as of this encounter
--- OUTSIDE RECORDS SUMMARY | 2024-09-04 14:56 | XMS_ITS | Encounter Summary ---
Author Organization [employer] Address [address] [place] [address] 7t [place] [address] Care Team Providers Care Property Claim Rep Name Role Phone Jayda Patiño MD Primary Care Provide r Reason for Visit * Reason Comments Med Refill Encounter Details Date Type Department Care Team (Late Contact Info) Description 10/22/2022 Refill [facility] [address] [place] [address] [facility] [address] [place] [address] Hypertension, unspecified type Social History Tobacco Use [...] Info) Description 09/05/2024 2:00 PM EDT Telemedicine [facility] MEDICINE [address] [place] [address] Jayda Patiño MD [address] [place], [place] [phone] documented as of this encounter Visit Diagnoses Diagnosis Hypertension, unspecified type documented in this encounter Additional Health Concerns Assessment Noted Time PHQ-9 Depression Total Score: 14 023 1:24 PM EDT documented as of this encounter Care Teams Property Claim Rep Relationship Specialty Start Date End Date Jayda Patiño MD [address] [place] [address] PCP - General Family Medicine 04/05/19 documented as of this encounter
--- OUTSIDE RECORDS SUMMARY | 2024-09-04 14:56 | XMS_ITS | Encounter Summary ---
Author Organization [employer] Address [address] [place] [address] 7t [place] [address] Care Team Providers Care Correctional Treatment Specialist Name Role Phone Jayda Patiño MD Primary Care Provide r Reason for Visit * Reason Comments Med Refill Encounter Details Date Type Department Care Team ([facility] Contact Info) Description 05/27/2022 Refill [facility] MEDICINE [address] [place] [address] Lia Edwards FNP [address] [place] [address] Chronic right shoulder pain Social History Tobacco [...] Description 09/05/2024 2:00 PM EDT Telemedicine [facility] MEDICINE [address] [place] [address] Jayda Patiño MD 230 [place] [address] documented as of this encounter Visit Diagnoses Diagnosis Chronic right shoulder pain Pain in joint, shoulder region documented in this encounter Care Teams Correctional Treatment Specialist Relationship Specialty Start Date End Date Jayda Patiño MD [address] [place] [address] PCP - General Family Medicine 04/05/19 documented as of this encounter
--- OUTSIDE RECORDS SUMMARY | 2024-09-04 14:56 | XMS_ITS | Encounter Summary ---
Author Organization [employer] Address [address] [facility] [address] 7t [place] [address] Care Team Providers Care Granite Setter Name Role Phone Jayda Patiño MD Primary Care Provide r Reason for Visit * Reason Comments Med Refill Encounter Details Date Type Department Care Team ([facility] st Contact Info) Description 07/07/2023 Refill [facility] MEDICINE [address] [place], [place] [phone] Jayda Patiño MD 230 [place] [address] Health care maintenance Social History Tobacco Use [...] Info) Description 09/05/2024 2:00 PM EDT Telemedicine [facility] MEDICINE [address] [place] [address] Jayda Patiño MD [address] [place] [phone] documented as of this encounter Visit Diagnoses Diagnosis Health care maintenance documented in this encounter Additional Health Concerns Assessment Noted Time PHQ-9 Depression Total Score: 14 024 10:05 AM EST documented as of this encounter Care Teams Granite Setter Relationship Specialty Start Date End Date Jayda Patiño MD [address] [place] [id number] PCP - General Family Medicine 04/05/19 documented as of this encounter
--- OUTSIDE RECORDS SUMMARY | 2024-09-04 14:56 | XMS_ITS | Encounter Summary ---
Author Organization [facility] Address [address] [place] [address] Care Team Providers Care Licensed And Certified Midwife Name Role Phone VictorH ugo Rodrigues MD Primary Care Provider Un available Community, Pcp Primary Care Provider Unavailabl e Jayda Rasheed MD Primary Care Provide r Unavailable Encounter Details Date Type Department Care Team Description 01/19/2016 Orders Only Adult Medicine [address] [address] Victor Hugo Rodrigues MD Social History Tobacco [...] on filedocumented in this encounter Care Teams Licensed And Certified Midwife Relationship Specialty Start Date End Date Victor Hugo Rodrigues MD PCP - General Internal Medicine 12/22/15 [facility], Pcp PCP - General Internal Medicine 09/23/16 06/15/23 Jayda Rasheed MD PCP - General Internal Medicine 06/16/23 documented as of this encounter
--- OUTSIDE RECORDS SUMMARY | 2024-09-04 14:56 | XMS_ITS | Encounter Summary ---
Author Organization [facility] Address [address] [place] [address] Care Team Providers Care Panel Monitor Name Role Phone Community, Pcp Primary Care Provider Jayda Avila MD Primary Care Provide r Unavailable Encounter Details Date Type Department Care Team Description 01/25/2017 Transfer Records Medical Records [address] [place] [address] Melina Orozco MD Social History Tobacco Use Types Packs/Day Years Used Date Smoking Tobacco: Former Alcohol Use Standard Drinks/Week Comments No 0 (1 standard drink = 0.6 oz pur e alcohol) Sex Assigned at Date Recorded Not on file documented as of this encounter Plan of Treatment Not on file documented as of this encounter Visit Diagnoses Not on filedocumented in this encounter Care Teams Panel Monitor Relationship Specialty Start Date End Date Geraldine, Pcp PCP - General Internal Medicine 09/23/16 06/15/23 Jayda Rasheed MD PCP - General Internal Medicine 06/16/23 documented as of this encounter
--- OUTSIDE RECORDS SUMMARY | 2024-09-04 14:56 | XMS_ITS | Encounter Summary ---
Author Organization [employer] [facility] Address [address] [place] [address] 7t [place] [address] Care Team Providers Care Shot Packer Name Role Phone Jayda Patiño MD Primary Care Provide r Reason for Visit * Reason Comments Med Refill Encounter Details Date Type Department Care Team ([facility] Contact Info) Description 07/02/2022 Refill [facility] MEDICINE [address] [place] [address] [phone] Lissette White MD 230 [place], [place] [phone] Chronic rhinitis Social History Tobacco Use Types [...] Info) Description 09/05/2024 2:00 PM EDT Telemedicine [facility] MEDICINE [address] [place] [address] [phone] Jayda Patiño MD [address] [place], [place] [phone] documented as of this encounter Visit Diagnoses Diagnosis Chronic rhinitis documented in this encounter Care Teams Shot Packer Relationship Specialty Start Date End Date Jayda Patiño MD [address] [place] [address] [place] [address] PCP - General Family Medicine 04/05/19 documented as of this encounter
--- OUTSIDE RECORDS SUMMARY | 2024-09-04 14:56 | XMS_ITS | Encounter Summary ---
Author Organization [employer] Address [address] [facility] [address] 7t [place] [address] Care Team Providers Care Emt Driver Name Role Phone Jayda Patiño MD Primary Care Provide r Encounter Details Date Type Department Care Team (Late st Contact Info) Description 07/24/2024 Orders Only [facility] [address] [place] [address] Provider, MD Jennie Social History Tobacco Use Types Packs/Day Years [...] 09/05/2024 2:00 PM EDT Telemedicine [facility] MEDICINE [address] [place] [address] [phone] Jayda aPtiño MD [address] [place] [address] [phone] documented as of this encounter Procedures Procedure Name Priority Date/Time Associated Diagnosis Comments COLONOSCOPY Routine 08/18/2023 10:07 AM EDT documented in this encounter Results * Hm Colonoscopy (08/18/2023 10:07 AM EDT) Colonoscopy Normal Normal Narrative Donna Bal - 08/18/2023 10:07 AM EDT Repeat Colonoscopy in 3 years due to polyps and fair prep on right side or earlier if clinically indicated ??see the external hospital admission note on 08/18/2023 us Historical Provider HEALTH MAINTENANCE Edited Result - Final documented in this encounter Visit Diagnoses Not on filedocumented in this encounter Additional Health Concerns Assessment Noted Time PHQ-9 Depression Total Score: 0 07/13/19 1:37 PM EDT documented as of this encounter Care Teams Emt Driver Relationship Specialty Start Date End Date Jayda Patiño MD [address] [place] [address] [phone] PCP - General Family Medicine 04/05/19 documented as of this encounter
--- OUTSIDE RECORDS SUMMARY | 2024-09-04 14:56 | XMS_ITS | Encounter Summary ---
Author Organization [employer] Address [address] [facility] 7t [place] [address] Care Team Providers Care Qa Architect Name Role Phone Jayda Patiño MD Primary Care Provide r Reason for Visit * Reason Comments Med Refill Encounter Details Date Type Department Care Team ([facility] st Contact Info) Description 07/26/2024 Refill [facility] MEDICINE [address] [place] [address] Jayda Patiño MD [address] [place] [address] Class 3 severe obesity due to excess calories with serious comorbidity and body mass index (BMI) of 40.0 to 44.9 in adult Social History Tobacco Use Types Packs/Day Years [...] Info) Description 09/05/2024 2:00 PM EDT Telemedicine [facility] MEDICINE [address] [place] [address] Jayda Patiño MD [address] [place] [address] documented as of this encounter Visit Diagnoses Diagnosis Class 3 severe obesity due to excess calories with serious comorbidity and body mass index (BMI) of 40.0 to 44.9 in adult documented in this encounter Additional Health Concerns Assessment Noted Time PHQ-9 Depression Total Score: 0 07/13/19 25 1:37 PM EDT documented as of this encounter Care Teams Qa Architect Relationship Specialty Start Date End Date Jayda Patiño MD [address] [place] [phone] PCP - General Family Medicine 04/05/19 documented as of this encounter
--- OUTSIDE RECORDS SUMMARY | 2024-09-04 14:56 | XMS_ITS | Encounter Summary ---
Author Organization [employer] [facility] Address [address] [place] [address] 7t [place] [address] Care Team Providers Care Negative Assembler Name Role Phone Jayda Patiño MD Primary Care Provide r Reason for Visit * Reason Comments Med Refill Encounter Details Date Type Department Care Team ([facility] Contact Info) Description 08/13/2022 Refill [facility] MEDICINE [address] [place] [address] [phone] Lissette White MD 230 [place], [place] [phone] Chronic rhinitis Social History Tobacco Use Types [...] Info) Description 09/05/2024 2:00 PM EDT Telemedicine [facility] MEDICINE [address] [place] [address] [phone] Jayda Patiño MD [address] [place], [place] [phone] documented as of this encounter Visit Diagnoses Diagnosis Chronic rhinitis documented in this encounter Care Teams Negative Assembler Relationship Specialty Start Date End Date Jayda Patiño MD [address] [place] [address] [place] [address] PCP - General Family Medicine 04/05/19 documented as of this encounter
--- OUTSIDE RECORDS SUMMARY | 2024-09-04 14:56 | XMS_ITS | Encounter Summary ---
Author Organization [employer] Address [address] [place] [address] 7t [place] [address] Care Team Providers Care Residential Monitor Name Role Phone Jayda Patiño MD Primary Care Provide r Reason for Visit * Reason Comments Med Refill Encounter Details Date Type Department Care Team ([facility] Contact Info) Description 07/30/2022 Refill [facility] MEDICINE [address] [place] [address] Lia Edwards FNP [address] [place] [address] Chronic right shoulder pain Social History Tobacco [...] Info) Description 09/05/2024 2:00 PM EDT Telemedicine [facility] MEDICINE [address] [place] [address] Jayda Patiño MD 230 [place] [address] documented as of this encounter Visit Diagnoses Diagnosis Chronic right shoulder pain Pain in joint, shoulder region documented in this encounter Care Teams Residential Monitor Relationship Specialty Start Date End Date Jayda Patiño MD [address] [place] [address] PCP - General Family Medicine 04/05/19 documented as of this encounter
--- OUTSIDE RECORDS SUMMARY | 2024-09-04 14:56 | XMS_ITS | Encounter Summary ---
Author Organization [facility] Address [address] [place] [address] Care Team Providers Care Territory Outside Sales Manager Name Role Phone Community, Pcp Primary Care Provider Jayda Avila MD Primary Care Provide r Unavailable Encounter Details Date Type Department Care Team Description 11/10/2016 Sales Training Manager Report Medical Records [address] [place] [address] Social History Tobacco Use Types Packs/Day Years Used Date Smoking Tobacco: Former Alcohol Use Standard Drinks/Week Comments No 0 (1 standard drink = 0.6 oz pur e alcohol) Sex Assigned at Date Recorded Not on file documented as of this encounter Plan of Treatment Not on file documented as of this encounter Visit Diagnoses Not on filedocumented in this encounter Care Teams Territory Outside Sales Manager Relationship Specialty Start Date End Date Community, Pcp PCP - General Internal Medicine 09/23/16 06/15/23 Jayda Rasheed MD PCP - General Internal Medicine 06/16/23 documented as of this encounter
--- OUTSIDE RECORDS SUMMARY | 2024-09-04 14:56 | XMS_ITS | Encounter Summary ---
Author Organization [employer] Address [address] [place] [address] 7 [place] [address] Care Team Providers Care Handle Machine Operator Name Role Phone Jayda Patiño MD Primary Care Provide r Reason for Visit * Reason Comments Med Refill Encounter Details Date Type Department Care Team (Late Contact Info) Description 12/31/2022 Refill [facility] MEDICINE [address] [place] [phone] Adela Denney FNP [address] [place] [address] Dept [place] [address] Health care maintenance Social History Tobacco Use [...] Info) Description 09/05/2024 2:00 PM EDT Telemedicine [facility] MEDICINE [address] [place] [address] [phone] Jayda Patiño MD [address] [place], [place] [phone] documented as of this encounter Visit Diagnoses Diagnosis Health care maintenance documented in this encounter Additional Health Concerns Assessment Noted Time PHQ-9 Depression Total Score: 14 023 1:24 PM EDT documented as of this encounter Care Teams Handle Machine Operator Relationship Specialty Start Date End Date Jayda Patiño MD [address] [place] [address] PCP - General Family Medicine 04/05/19 documented as of this encounter
--- OUTSIDE RECORDS SUMMARY | 2024-09-04 14:56 | XMS_ITS | Encounter Summary ---
Author Organization [employer] Address [address] [facility] [address] 7t [place] [address] Care Team Providers Care Equipment Maint Tech Name Role Phone Jayda Patiño MD Primary Care Provide r Reason for Visit * Reason Comments Med Refill Encounter Details Date Type Department Care Team ([facility] st Contact Info) Description 08/22/2024 Refill [facility] MEDICINE [address] [place] [address] Jayda Patiño MD [address] [place] [address] Pain of left heel Social History Tobacco Use Types Packs/Day Years [...] Telemedicine [facility] MEDICINE [address] [place] [address] Jayda Patiño MD [address] [place] [address] documented as of this encounter Visit Diagnoses Diagnosis Pain of left heel documented in this encounter Additional Health Concerns Assessment Noted Time PHQ-9 Depression Total Score: 0 07/13/19 25 1:37 PM EDT documented as of this encounter Care Teams Equipment Maint Tech Relationship Specialty Start Date End Date Jayda Patiño MD [address] [place] [address] PCP - General Family Medicine 04/05/19 documented as of this encounter
--- OUTSIDE RECORDS SUMMARY | 2024-09-04 14:56 | XMS_ITS | Encounter Summary ---
Author Organization [facility] Address [address] [place] [address] Care Team Providers Care Manager Discovery Name Role Phone Victor Hugo Rodrigues MD Primary Care Provider Un available Community, Pcp Primary Care Provider Unavailabl e Jayda Rasheed MD Primary Care Provide r Unavailable Encounter Details Date Type Department Care Team Description 01/16/2016 [facility] Medical Records [address] [place] [id number] Abstract, Provider Social History Tobacco Use Types [...] on filedocumented in this encounter Care Teams Manager Discovery Relationship Specialty Start Date End Date Victor Hugo Rodrigues MD PCP - General Internal Medicine 12/22/15 Community, Pcp PCP - General Internal Medicine 09/23/16 06/15/23 Jayda Rasheed MD PCP - General Internal Medicine 06/16/23 documented as of this encounter
--- OUTSIDE RECORDS SUMMARY | 2024-09-04 14:56 | XMS_ITS | Encounter Summary ---
Author Organization [employer] Address [address] [facility] 7t [place] [address] Care Team Providers Care Bookbinding Machine Operator Name Role Phone Jayda Patiño MD Primary Care Provide r Reason for Visit * Reason Comments Med Refill Encounter Details Date Type Department Care Team ([facility] st Contact Info) Description 07/10/2024 Refill [facility] MEDICINE [address] [place] [address] Jayda Patiño MD [address] [place] [address] Hyperlipidemia, unspecified hyperlipidemia type; Hypertension, unspecified type; [...] Info) Description 09/05/2024 2:00 PM EDT Telemedicine [facility] MEDICINE [address] [place] [address] Jayda Patiño MD [address] [place] [address] documented as of this encounter Visit Diagnoses Diagnosis Hyperlipidemia, unspecified hyperlipidemia type Hypertension, unspecified type Chronic migraine without aura without status migrainosus, not intractable documented in this encounter Additional Health Concerns Assessment Noted Time PHQ-9 Depression Total Score: 14 024 10:05 AM EST documented as of this encounter Care Teams Bookbinding Machine Operator Relationship Specialty Start Date End Date Jayda Patiño MD [address] [place] [address] PCP - General Family Medicine 04/05/19 documented as of this encounter
--- OUTSIDE RECORDS SUMMARY | 2024-09-04 14:56 | XMS_ITS | Encounter Summary ---
Author Organization [employer] Address [address] [place] [address] 7t [place] [address] Care Team Providers Care Ror Engineer Name Role Phone Jayda Patiño MD Primary Care Provide r Reason for Visit * Reason Comments Med Refill Encounter Details Date Type Department Care Team (Late Contact Info) Description 08/30/2022 Refill [facility] MEDICINE [address] [place] [address] Jayda Patiño MD [address] [place] [address] Chronic right shoulder pain Social History Tobacco [...] EDT Telemedicine [facility] MEDICINE [address] [place], [place] [phone] Jayda Patiño MD [address] [place], [place] [phone] documented as of this encounter Visit Diagnoses Diagnosis Chronic right shoulder pain Pain in joint, shoulder region documented in this encounter Care Teams Ror Engineer Relationship Specialty Start Date End Date Jayda Patiño MD [address] [place] [address] PCP - General Family Medicine 04/05/19 documented as of this encounter
--- OUTSIDE RECORDS SUMMARY | 2024-09-04 14:56 | XMS_ITS | Encounter Summary ---
Author Organization [facility] Address [address] [place] [address] Care Team Providers Care Book Coverer Name Role Phone Victor Hugo Rodrigues MD Primary Care Provider Un available Community, Pcp Primary Care Provider Unavailabl e Jayda Rasheed MD Primary Care Provide r Unavailable Encounter Details Date Type Department Care Team Description 07/10/2016 Release of Information Medical Records [address] [place] [id number] Abstract, Provider Social History Tobacco Use Types [...] on filedocumented in this encounter Care Teams Book Coverer Relationship Specialty Start Date End Date Victor Hugo Rodrigues MD PCP - General Internal Medicine 12/22/15 Community, Pcp PCP - General Internal Medicine 09/23/16 06/15/23 Jayda Rasheed MD PCP - General Internal Medicine 06/16/23 documented as of this encounter
--- OUTSIDE RECORDS SUMMARY | 2024-09-04 14:56 | XMS_ITS | Encounter Summary ---
Author Organization [facility] [employer] Address [address] [facility] 7t [place] [address] Care Team Providers Care Letterpress Setter Name Role Phone Jayda Patiño MD Primary Care Provide r Reason for Visit * Reason Comments Med Refill Encounter Details Date Type Department Care Team (Late Contact Info) Description 09/06/2022 Refill [facility] [address] [place] [phone] Jayda Patiño MD [address] [place] [address] Chronic right shoulder pain Social History Tobacco [...] Upcoming Encounters Date Type Department Care Team ([facility] Contact Info) Description 09/05/2024 2:00 PM EDT Telemedicine [facility] [address] [place] [address] Jayda Patiño MD [address] [place] [address] documented as of this encounter Visit Diagnoses Diagnosis Chronic right shoulder pain Pain in joint, shoulder region documented in this encounter Additional Health Concerns Assessment Noted Time PHQ-9 Depression Total Score: 14 023 1:24 PM EDT documented as of this encounter Care Teams Letterpress Setter Relationship Specialty Start Date End Date Jayda Patiño MD [address] [place] [address] PCP - General Family Medicine 04/05/19 documented as of this encounter
--- OUTSIDE RECORDS SUMMARY | 2024-09-04 14:56 | XMS_ITS | Encounter Summary ---
Author Organization [facility] Address [address] [place] [address] Care Team Providers Care Lead Process Engineer Name Role Phone Victor Hugo Rodrigues MD Primary Care Provider Un available Community, Pcp Primary Care Provider Unavailabl e Jayda Rasheed MD Primary Care Provide r Unavailable Encounter Details Date Type Department Care Team Description 01/15/2016 Release of Information Medical Records [address] [place] [id number] Abstract, Provider Social History Tobacco Use Types [...] on filedocumented in this encounter Care Teams Lead Process Engineer Relationship Specialty Start Date End Date Victor Hugo Rodrigues MD PCP - General Internal Medicine 12/22/15 Community, Pcp PCP - General Internal Medicine 09/23/16 06/15/23 Jayda Rasheed MD PCP - General Internal Medicine 06/16/23 documented as of this encounter
--- OUTSIDE RECORDS SUMMARY | 2024-09-04 14:56 | XMS_ITS | Encounter Summary ---
Author Organization [employer] [facility] Address [address] [place] [address] 7t [place] [address] Care Team Providers Care Home Inspector Name Role Phone Jayda Patiño MD Primary Care Provide r Reason for Visit * Reason Comments Med Refill Encounter Details Date Type Department Care Team ([facility] Contact Info) Description 06/09/2022 Refill [facility] [address] [place] [phone] Lissette White MD [address] [place], [place] [phone] Chronic rhinitis Social History Tobacco Use Types [...] 09/05/2024 2:00 PM EDT Telemedicine [facility] [address] [place] [phone] Jayda Patiño MD [address] [place], [place] [phone] documented as of this encounter Visit Diagnoses Diagnosis Chronic rhinitis documented in this encounter Care Teams Home Inspector Relationship Specialty Start Date End Date Jayda Patiño MD [address] [place] [address] [place] [address] PCP - General Family Medicine 04/05/19 documented as of this encounter
--- OUTSIDE RECORDS SUMMARY | 2024-09-04 14:56 | XMS_ITS | Encounter Summary ---
Author Organization [employer] Address [address] [facility] 7t [place] [address] Care Team Providers Care Core Machine Operator Name Role Phone Jayda Patiño MD Primary Care Provide r Reason for Visit * Reason Comments Med Refill Encounter Details Date Type Department Care Team (Late Contact Info) Description 09/25/2022 Refill [facility] [address] [place] [phone] Jayda Patiño MD [address] [place] [address] Chronic right shoulder pain Social History Tobacco [...] Upcoming Encounters Date Type Department Care Team ([facility] Contact Info) Description 09/05/2024 2:00 PM EDT Telemedicine [facility] [address] [place] [address] aJyda Patiño MD [address] [place] [address] documented as of this encounter Visit Diagnoses Diagnosis Chronic right shoulder pain Pain in joint, shoulder region documented in this encounter Additional Health Concerns Assessment Noted Time PHQ-9 Depression Total Score: 14 023 1:24 PM EDT documented as of this encounter Care Teams Core Machine Operator Relationship Specialty Start Date End Date Jayda Patiño MD [address] [place] [address] PCP - General Family Medicine 04/05/19 documented as of this encounter
--- OUTSIDE RECORDS SUMMARY | 2024-09-04 14:56 | XMS_ITS | Encounter Summary ---
Author Organization [employer] Address [address] [place] [address] 7t [place] [address] Care Team Providers Care Investment Banking Manager Name Role Phone Jayda Patiño MD Primary Care Provide r Reason for Visit * Reason Comments Med Refill Encounter Details Date Type Department Care Team (Late st Contact Info) Description 05/22/2022 Refill [facility] [address] [place] [address] Celena Farias DO [address] [place] [address] Hypertension, unspecified type Social History Tobacco Use [...] Description 09/05/2024 2:00 PM EDT Telemedicine [facility] [address] [place], [place] [phone] Jayda Patiño MD [address] [place] [address] documented as of this encounter Visit Diagnoses Diagnosis Hypertension, unspecified type documented in this encounter Care Teams Investment Banking Manager Relationship Specialty Start Date End Date Jayda Patiño MD [address] [place] [address] PCP - General Family Medicine 04/05/19 documented as of this encounter
== END 2024-09-04 14:36 | disposition home or self-care (01) ==
LOC: HO.HGI 13:46
PROVIDERS: PCP Internal Medicine; Visit Provider Nurse Practitioner
DX: K31.84 Gastroparesis (principal); K59.04 Chronic idiopathic constipation; E66.01 Morbid (severe) obesity due to excess calories; Z68.41 Body mass index [BMI] 40.0-44.9, adult
CPT/HCPCS: 99213

== ENCOUNTER → 2024-09-04 13:45 | Outpatient (BNVA) | payer MEDICAID, SELFPAY | PROVIDERS: PCP Internal Medicine; Visit Provider Nurse Practitioner | DX: K31.84 Gastroparesis (principal); K59.04 Chronic idiopathic constipation; E66.01 Morbid (severe) obesity due to excess calories; Z68.41 Body mass index [BMI] 40.0-44.9, adult | CPT/HCPCS: 99212 ==

== ENCOUNTER 2024-11-15 13:28 | Outpatient (AMB) | payer MEDICAID, SELFPAY ==
--- OUTSIDE RECORDS SUMMARY | 2024-11-15 13:35 | XMS_ITS | Clinical Summary ---
Author Organization [facility] Address [address] [place] [address] Care Team Providers Care Habilitation Training Specialist Name Role Phone Jayda Patiño MD Primary Care Provide r Surgical History Surgery Date Site/Laterality Comments BUNIONECTOMY 2014 Left PROCEDURE: CA CORRJ HLX VLGS BNCTY SESMDC W/DOUBLE OSTEOTOMY OTHER SURGICAL HISTORY 12/28/12 PROCEDURE: OUTSIDE PAP SMEAR TUBAL LIGATION PROCEDURE: HISTORICAL TUBAL LIGATION EYE SURGERY Left PROCEDURE: HISTORICAL EYE SURGERY; COMMENT: EYELID CERVICAL BIOPSY W/ LOOP ELECTRODE EXCISION PROCEDURE: CA CONIZATION CERVIX W/WO D&C RPR ELTRD EXC; [...] Panel) 03/28/2022 Colorectal Cancer Screening: Colonoscopy 03/28/2022 HIV Screening 03/28/2022 Hepatitis C Screening 03/28/2022 Social Influencers of Health Screening 03/28/2022 DTaP,Tdap,and Td Vaccines (3 - Td or Tdap) 06/05/2022 06/05/2012, 05/18/2005 COVID-19 Vaccine ( - 2023-2 5 season) 2023 Depression Screening 04/25/2024 Influenza Vaccine (#1) 2024 6, 02/27/2015 HIB Vaccines Aged Out No [...] age to complete this topic Care Teams Habilitation Training Specialist Relationship Specialty Start Date End Date Jayda Patiño MD [address] [place] [phone] PCP - General 06/16/23
--- OUTSIDE RECORDS SUMMARY | 2024-11-15 13:35 | XMS_ITS | Encounter Summary ---
Author Organization [employer] Address [address] [facility] 7t [place] [address] Care Team Providers Care Certified Physician'S Assistant Name Role Phone Jayda Patiño MD Primary Care Provide r Reason for Visit * Reason Comments Med Refill Encounter Details Date Type Department Care Team ([facility] st Contact Info) Description 02/24/2023 Refill [facility] [address] [place] [address] Jayda Patiño MD [address] [place] [address] Chronic migraine without aura without status migrainosus, [...] documented as of this encounter Care Teams Certified Physician'S Assistant Relationship Specialty Start Date End Date Jayda Patiño MD [address] [place] [phone] PCP - General Family Medicine 04/05/19 documented as of this encounter
[2024-11-15 13:50] VITALS: BP 130/70; PULSE 91; O2SAT 96; BMI 39.8
--- NOTE | 2024-11-15 13:50 | A.OFFVIS_ITS ---
Vital Signs 11/15/24 13:50 Height 5 ft 4 in Weight 232 lb 2.348 oz BMI 39.8 BP 130/70 Blood Pressure Location Lt brachial Position Sitting Pulse 91 Pulse Source Pulse Oximeter Pulse Oximetry (%) 96 Oxygen Delivery Method Room Air Intake Visit Reasons: FMS Intake Note: Patient last seen by Doctor Matias Heller on 05/08/24. Presents today for FMS follow up and test results. Soil Biology Teacher Required: Yes Soil Biology Teacher Name: [email or web address] [phone] Accompanied by: Daughter Allergies cephalexin (From KEFLEX) Allergy (Intermediate, Verified 11/15/24 13:54) RASH diazepam (From VALIUM) Allergy (Intermediate, Verified 11/15/24 13:54) Anxiety menthol (From BenGay) Allergy (Intermediate, Verified 11/15/24 13:54) Rash methyl salicylate (From BenGay) Allergy (Intermediate, Verified 11/15/24 13:54) Rash Penicillins Allergy (Intermediate, Verified 11/15/24 13:54) RASH Medication List - Last Reconciled 11/15/24 by Krystyna Turner MD allopurinol 100 mg PO DAILY 90 days buspirone 5 mg PO DAILY cholecalciferol (vitamin D3) (Vitamin D3) 1 cap PO DAILY cyclobenzaprine 5 mg PO TID doxepin 10 mg PO BEDTIME duloxetine (Cymbalta) 60 mg PO BID folic acid 1 mg PO DAILY hydrochlorothiazide 12.5 mg PO DAILY lansoprazole 30 mg PO DAILY linaclotide (Linzess) 290 mcg PO DAILY 90 days loratadine 10 mg PO DAILY magnesium oxide 400 mg PO BID meclizine 25 mg PO TID PRN meloxicam 15 mg PO DAILY PRN metoclopramide HCl 5 mg PO TID pravastatin 40 mg PO DAILY pyridoxine (vitamin B6) 100 mg PO DAILY sennosides (senna) 17.2 mg (2 x 8.6 mg) PO BID PRN sumatriptan succinate 5 mg PO ONCE PRN topiramate 50 mg PO BID tramadol 50 mg PO TID 30 days HPI Comments Details: Patient is a 59 y.o. female with GERD, ROSARIO, non crystal proven gout, polyarticular OA, and fibromyalgia here today for follow up Interval History: Patient last seen 05/08/[address] Heller - Continued to complain of diffuse pain - C/o bilateral hip pain - Patient declined injections Today - Continues to complain of pain: Hips, shoulders, PIPs of the hands - Exercises not helpful for her bursitis Rheumatologic History: Fibromyalgia and OA Current Rheumatology Medication(s): Tramadol 50mg TID PFSH Medical History Bilateral kidney stones Arthritis of left acromioclavicular joint Bursitis of left shoulder Daytime sleepiness Tendonitis of left rotator cuff Hydronephrosis with obstructing calculus Medication monitoring encounter Pre-op examination Renal calculi Injury of tendon of right rotator cuff TONIO (acute kidney injury) Kidney stones History of depression HTN (hypertension) Gout, arthritis Rotator cuff tendonitis Class 2 obesity GERD (gastroesophageal reflux disease) Renal colic Fibromyalgia Osteoarthritis Surgical History History of endometrial ablation Hx of cystoscopy H/O lithotripsy History of esophagogastroduodenoscopy (EGD) Hx of colonoscopy Family History Father Diabetes mellitus Hypercholesteremia Heart attack HTN (hypertension) Mother Diabetes mellitus HTN (hypertension) Heart attack Hypercholesteremia Cardiovascular disease Brother Liver cancer Brother Pancreatic cancer Brother Lymphoma Sister Cervical cancer Sister Cirrhosis of liver Family/Other Cancer Family/Other Ovarian cancer Social History Household Members: Family Are you a primary career based intervention coordinator to a significant other at home: No Do you presently have visiting nurse or other home services: No Alcohol intake: never Patient Tobacco Use Status: Former Tobacco user Tobacco use type: Cigarette Years Smoked: 25 +/- Second Hand Smoke Exposure: No Current occupational status: disabled Current occupation: rt handed Review of Systems Const Details: Review of Systems Constitutional: Denies fever, chills, weight loss ENT: Denies vision changes, eye pain or eye redness, dental caries, dry mouth GI: Denies nausea, vomiting, diarrhea, abdominal pain, change in BM Pulm: Denies SOB, PEPPER, hemoptysis, wheezing Cards: Denies chest pain, palpitations Skin: Denies Raynaud's, rash, nail changes, photosensitivity, SPRING REPAIRER HELPER HAND: Denies headaches, weakness, paresthesias, recurrent falls MSK: as per HPI All other systems reviewed and are unremarkable except noted above Physical Exam Exam Exam: Vital signs reviewed Physical Examination CONSTITUITIONAL Patient alert and cooperative. Well appearing and in no apparent painful distress MSK Hands * Right Hand: Able to make a fist. No swelling or tenderness to palpation of these joints. * Left Hand: Able to make a fist. No swelling or tenderness to palpation of the se joints. * Herbedens nodes noted bilaterally Wrists * Right Wrist: Full ROM. 70 degrees of wrist flexion, 80 degrees of wrist extension. No swelling or TTP * Left Wrist: Full ROM. 70 degrees of wrist flexion, 80 degrees of wrist extension. No swelling or TTP Elbows * Right Elbow: Full ROM. No swelling or TTP. * Left Elbow: Full ROM. No swelling or TTP. * TTP of the lateral epicondyles bilaterally Shoulders * Right shoulder: Full ROM. No swelling noted. TTP of the AC joint and subacromial bursa * Left shoulder: Full ROM. No swelling noted. TTP of the AC joint and subacromial bursa Hip bursa: Tenderness to palpation bilaterally Knees * Right knee: Full ROM. No swelling noted. No TTP of the knee joint lie * Left knee: Full ROM. No swelling noted. No TTP of the knee joint lie * TTP of bilateral pes anserine bursa Ankles * Right ankle: Good ankle dorsiflexion and plantar flexion. No swelling. No TTP of the ankle joint * Left ankle: Good ankle dorsiflexion and plantar flexion. No swelling. No TTP of the ankle joint Feet * Right foot: Negative squeeze test * Left foot: Negative squeeze test Tender points? * Tenderness to palpation of the bilateral trapezius, supraspinatus, anterior c ostochondral junctions, bilateral suboccipital muscle insertions SKIN No rashes Vital Signs: Last Vital Signs Pulse 91 11/15/24 13:50 BP 130/70 11/15/24 13:50 Pulse Ox 96 11/15/24 13:50 Oxygen Delivery Method Room Air 11/15/24 13:50 BMI result Body Mass Index 39.8 Office Procedures AMB Joint Injection/Aspiration Joint Injection/Aspiration Details: Procedure was explained to the patient and informed consent was obtained. ? Risks associated with the procedure were discussed with the patient including but not limited to bleeding, infection, drug reactions and reactions to the topical anesthetic. Patient made aware of signs to look out for infectious complications. The area of interest was identified and confirmed with patient. ?This was subsequently cleaned with chlorhexidine x 2. ? The area was then anesthetized using ethyl chloride spray. 30 mg Ketorolac with 1 cc 1% lidocaine was injected without issue. ?Minimal to no bleeding. ?Patient tolerated procedure. Primary Site: other (Right greater trochanteric bursa) Prep: site was prepped using aseptic technique and ethochloride spray was applied Injected: with 1 mL of, 1% plain lidocaine and other (1cc 30mg Ketorolac) Procedure: The patient tolerated the procedure well Coding 56856 - Glenohumeral/Tronchanteric Bursa/Intraarticular Procedure code (CPT) selection complete AMB Joint Injection/Aspiration Joint Injection/Aspiration Details: Procedure was explained to the patient and informed consent was obtained. ? Risks associated with the procedure were discussed with the patient including but not limited to bleeding, infection, drug reactions and reactions to the topical anesthetic. Patient made aware of signs to look out for infectious complications. The area of interest was identified and confirmed with patient. ?This was subsequently cleaned with chlorhexidine x 2. ? The area was then anesthetized using ethyl chloride spray. 30 mg Ketorolac with 1 cc 1% lidocaine was injected without issue. ?Minimal to no bleeding. ?Patient tolerated procedure. Primary Site: other (left greater trochanteric bursa) Prep: site was prepped using aseptic technique and ethochloride spray was a pplied Injected: with 1 mL of, 1% plain lidocaine and other (1cc of 30 mg Ketorolac (30mg/mL)) Procedure: The patient tolerated the procedure well Coding 52248 - Glenohumeral/Tronchanteric Bursa/Intraarticular Procedure code (CPT) selection complete Office Meds lidocaine (PF) 10 mg/mL (1 %) injection solution Performing Provider: Krystyna Turner MD Performing Location: [facility] Administered by: Krystyna Turner MD on 11/15/24 14:50 Dose Route Admin Location Dispensed Lot Number Expiration Date [facility] Outside Maintenance Worker 1 mL Infiltration right greater trochanteri 2 mL [id number] 08/23/26 30951-757-38 [facility] Total Dispensed Waste 2 mL 50 % lidocaine (PF) 10 mg/mL (1 %) injection solution Performing Provider: Krystyna Turner MD Performing Location: [facility] Administered by: Krystyna Turner MD on 11/15/24 14:50 Dose Route Admin Location Dispensed Lot Number Expiration Date [facility] Outside Maintenance Worker 1 mL Infiltration left greater trochanteric 2 mL [id number] 08/23/26 97942-716-16 [employer] Total Dispensed Waste 2 mL 50 % ketorolac 30 mg/mL (1 mL) injection solution Performing Provider: Krystyna Turner MD Performing Location: [facility] Administered by: Krystyna Turner MD on 11/15/24 14:50 Dose Route Admin Location Dispensed Lot Number Expiration Date [facility] Outside Maintenance Worker 30 mg intrabursal right greater trochanteri 1 mL [id number] 06/23/25 51322-443-59 [employer] Total Dispensed Waste 1 mL 0 % ketorolac 30 mg/mL (1 mL) injection solution Performing Provider: Krystyna Turner MD Performing Location: [facility] Administered by: Krystyna Turner MD on 11/15/24 14:50 Dose Route Admin Location Dispensed Lot Number Expiration Date [facility] Outside Maintenance Worker 30 mg intrabursal Left greater trochanteric 1 mL [id number] 06/23/25 49707-568-80 [employer] Total Dispensed Waste 1 mL 0 % Assessment & Plan Assessment & Plan (1) Greater trochanteric bursitis of both hips: Code(s): M70.61 - Trochanteric bursitis, right hip; M70.62 - Trochanteric bursitis, left hip Category: Medical Plan: #Bilateral greater trochanteric bursitis Patient with bilateral greater trochanteric bursitis Patient did not want a steroid injection today because she feels that steroid injections cause her to retain fluid and gain weight. So she was given a Toradol injection bilaterally Plan - s/p Bilateral greater trochanteric injections with toradol - RTC 6 months (2) Fibromyalgia, primary: Code(s): M79.7 - Fibromyalgia Category: Medical Plan: #Fibromyalgia Patient with fibromyalgia currently managing this with duloxetine, flexeril and tramadol Encouraged exercises and stretches Plan I spent 20 minutes reviewing the record and labs, taking a history, examining the patient, discussing the treatment plan, ordering diagnostic work up and documenting in the medical record Orders: Orders AMB Joint Injection/Aspiration Today M70.61 - Trochanteric bursitis, right hip, M70.62 - Trochanteric bursitis, left hip AMB Ketorolac Injection Today M70.61 - Trochanteric bursitis, right hip, M70.62 - Trochanteric bursitis, left hip AMB Joint Injection/Aspiration Today M70.61 - Trochanteric bursitis, right hip, M70.62 - Trochanteric bursitis, left hip AMB Ketorolac Injection Today M70.61 - Trochanteric bursitis, right hip, M70.62 - Trochanteric bursitis, left hip Medications: Discontinued meloxicam Discontinued Reason: Doctor's Order 15 mg PO DAILY PRN 30 tabs 0RF pain M17.0 - Bilateral primary osteoarthritis of knee Coding Level of Care Code Est Pt Level 3 (71474) Diagnoses Greater trochanteric bursitis of both hips M70.61; M70.62 Fibromyalgia, primary M79.7 CPT Codes Coding - Joint 7: 87163 - Glenohumeral/Tronchanteric Bursa/Intraarticular ([id number]) Coding - Joint 7: 71466 - Glenohumeral/Tronchanteric Bursa/Intraarticular ([id number])
== END 2024-11-15 14:40 | disposition home or self-care (01) ==
LOC: HO.RHE 13:29
PROVIDERS: PCP Internal Medicine; Visit Provider Student in an Organized Health Care Education/Training Program
DX: M70.61 Trochanteric bursitis, right hip (principal); M70.62 Trochanteric bursitis, left hip; M79.7 Fibromyalgia
CPT/HCPCS: 20610; 99213

== ENCOUNTER → 2024-11-15 13:28 | Outpatient (BNVA) | payer MEDICAID, SELFPAY | PROVIDERS: PCP Internal Medicine; Visit Provider Student in an Organized Health Care Education/Training Program | DX: M70.61 Trochanteric bursitis, right hip (principal); M70.62 Trochanteric bursitis, left hip; M15.9 Polyosteoarthritis, unspecified; M79.7 Fibromyalgia; M10.9 Gout, unspecified | CPT/HCPCS: 20610; 96372; 99212; J1885; J2003 ==

== ENCOUNTER 2024-12-04 12:46 | Outpatient (AMB) | payer MEDICAID, SELFPAY ==
--- NOTE | 2024-12-04 12:48 | MHC.OFFVIS ---
Vital Signs 12/04/24 12:50 Height 5 ft 4 in Weight 228 lb BMI 39.1 BP 136/76 Blood Pressure Location Lt brachial Position Sitting Pulse 92 Pulse Oximetry (%) 98 Oxygen Delivery Method Room Air Intake Visit Reasons: 3 mo f/u Gastric pain,paresis, CIC,Gerd Intake Note: Patient 3 mo f/u Gastric pain,paresis, CIC,Gerd Patient cc: nauseas, abdominal pain with bloating, heartburn with choking sensation at night time on and off, constipation much better with med. Clip And Hanger Attacher Required: Yes Clip And Hanger Attacher Name: [place] [facility] Interpeter Accompanied by: Self / Same As Patient Allergies cephalexin (From KEFLEX) Allergy (Intermediate, Verified 12/04/24 12:49) RASH diazepam (From VALIUM) Allergy (Intermediate, Verified 12/04/24 12:49) Anxiety menthol (From BenGay) Allergy (Intermediate, Verified 12/04/24 12:49) Rash methyl salicylate (From BenGay) Allergy (Intermediate, Verified 12/04/24 12:49) Rash Penicillins Allergy (Intermediate, Verified 12/04/24 12:49) RASH HPI HPI 3 mo f/u Gastric pain,paresis, CIC,Gerd: Details: Assessment & Plan (1) Gastroparesis: Code(s): K31.84 - Gastroparesis Category: Medical (2) Chronic idiopathic constipation: Code(s): K59.04 - Chronic idiopathic constipation Category: Medical (3) Morbid obesity with BMI of 40.0-44.9, adult: Code(s): E66.01 - Morbid (severe) obesity due to excess calories; Z68.41 - Body mass index [BMI] 40.0-44.9, adult Category: Medical Plan [place] #Odessa live She continues on her reglan, lanzoprazole and Linzess, and has senna and magnesium as a back up. She has intermittent gastric pain, but with conversation she is missing reglan doses. Next ov ? increase reglan or if resolved with better compliance. I have asked her to try to keep a log as to whether her pain occurs only when she misses her dose of Reglan, and advised her to take it as soon as she remembers even if it isn't in the 1/2 hour before meal timeframe. ROV 3 mos. TODAY'S VISIT [place] #Odessa Live She continues to have pain in the gastric area with eating and now she is having worsening reflux that frequently chokes her at night. She already has mentasta gastroparesis and as I discovered today, she was started on Zepbound for weight loss. This is likely severely exacerbating her existing gastroparesis. She has some relief with the Reglan 5 mg but not nearly enough. We will try increasing to 10 mg but she is educated that this is what the medication is supposed to do so I can only offset that by so much especially given that she already has overlying pre-existing gastroparesis. She is also educated about the risk of aspiration and to put blocks under the head of her bed. So at this time she will be on Reglan 10 mg 4 times a day and continues her lanzoprazole and Linzess, and has senna and magnesium as a back up. Return office visit in 4 weeks [facility] Medical History Bilateral kidney stones Arthritis of left acromioclavicular joint Bursitis of left shoulder Daytime sleepiness Tendonitis of left rotator cuff Hydronephrosis with obstructing calculus Medication monitoring encounter Pre-op examination Renal calculi Injury of tendon of right rotator cuff TONIO (acute kidney injury) Kidney stones History of depression HTN (hypertension) Gout, arthritis Rotator cuff tendonitis Class 2 obesity GERD (gastroesophageal reflux disease) Renal colic Fibromyalgia Osteoarthritis Surgical History History of endometrial ablation Hx of cystoscopy H/O lithotripsy History of esophagogastroduodenoscopy (EGD) Hx of colonoscopy Family History Father Diabetes mellitus Hypercholesteremia Heart attack HTN (hypertension) Mother Diabetes mellitus HTN (hypertension) Heart attack Hypercholesteremia Cardiovascular disease Brother Liver cancer Brother Pancreatic cancer Brother Lymphoma Sister Cervical cancer Sister Cirrhosis of liver Family/Other Cancer Family/Other Ovarian cancer Social History Household Members: Family Are you a primary post acute care registered nurse to a significant other at home: No Do you presently have visiting nurse or other home services: No Alcohol intake: never Patient Tobacco Use Status: Former Tobacco user Tobacco use type: Cigarette Years Smoked: 25 +/- Second Hand Smoke Exposure: No Current occupational status: disabled Current occupation: rt handed Review of Systems Const Denies fatigue, Denies fever(s), Denies night sweats, Denies poor appetite and Denies weight loss ENT Reports Normal hearing present, Denies dental pain, Denies dysphagia, Denies hearing loss, Denies mouth pain, Denies odynophagia, Denies throat swelling, Denies tongue swelling and Reports other (Dentition adequate) Card Reports no additional complaints Resp Reports no additional complaints GI Details: Near aspiration and choking Reports abdominal pain, Denies melena, Denies bloating, Denies hematochezia, Reports constipation, Denies GI cramping, Denies dysphagia, Denies excessive flatus, Denies early satiety, Reports dyspepsia, Reports heartburn, Denies diarrhea, Denies nausea, Denies odynophagia, Denies vomiting and Denies hematemesis Skin/Breast Denies pruritus, Denies lesions, Denies rash and Denies jaundice Neuro Reports Normal hearing present and Denies Abnormal speech present Endo Denies fatigue Aller/Immun Denies throat swelling and Denies tongue swelling Physical Exam Vital Signs: Last Vital Signs Pulse 92 12/04/24 12:50 BP 136/76 12/04/24 12:50 Pulse Ox 98 12/04/24 12:50 Oxygen Delivery Method Room Air 12/04/24 12:50 BMI result Body Mass Index 39.1 Const General: cooperative, no acute distress, well developed and well groomed Nutritional Appearance: well nourished and obese Orientation/consciousness: oriented to person, oriented to place and oriented to time Limitations: language barrier HEENT Head: Yes normocephalic and Yes atraumatic Eyes General: appearance normal, both eyes and all related structures Pupils: Equal, round and reactive pupils present Neck Neck: Yes normal visual inspection and Yes no lymphadenopathy Thyroid: Thyroid normal Resp Effort & Inspection: normal respiratory effort and able to speak in complete sentences Auscultation: clear to auscultation bilaterally Cardio Rate: regular rate Rhythm: regular rhythm Heart sounds: Normal, physiologic split S2 sound present Peripheral pulses: radial pulses present and posterior tibial pulses present GI Inspection: No distended, Yes Abdominal panniculus present and Yes obesity Palpation (GI): Soft to palpation, nontender, no guarding, not rigid and No hepatosplenomegaly present Percussion: Yes normal to percussion Auscultation: normal bowel sounds Rectal Exam - Female: deferred Skin General skin exam: no rashes or lesions noted, turgor normal, skin not dry, no jaundice, No spider nevi and no striae Rashes: no rashes Nails: normal Neuro General: oriented to person, oriented to place and oriented to time Cranial nerves: Yes Equal, round and reactive pupils present and Yes Normal hearing present Speech: No Abnormal speech present Extrem General: Yes normal to inspection, No clubbing, No cyanosis and No edema Psych Appearance: grossly normal and well kempt Mental Status: mental status grossly normal Speech and movement: Normal speech and movement present Affect: normal affect Attitude: cooperative Thought process: Normal thought process present and not confabulating Thought content: Normal thought content present Insight: Limited insight present (Psych) Judgement: Limited judgement present (Psych) Assessment & Plan Assessment & Plan (1) Gastroparesis: Code(s): K31.84 - Gastroparesis Category: Medical (2) GERD (gastroesophageal reflux disease): Code(s): K21.9 - Gastro-esophageal reflux disease without esophagitis Category: Medical (3) Chronic idiopathic constipation: Code(s): K59.04 - Chronic idiopathic constipation Category: Medical Plan [place] #Odessa Mckeon She continues to have pain in the gastric area with eating and now she is having worsening reflux that frequently chokes her at night. She already has mentasta gastroparesis and as I discovered today, she was started on Zepbound for weight loss. This is likely severely exacerbating her existing gastroparesis. She has some relief with the Reglan 5 mg but not nearly enough. We will try increasing to 10 mg but she is educated that this is what the medication is supposed to do so I can only offset that by so much especially given that she already has overlying pre-existing gastroparesis. She is also educated about the risk of aspiration and to put blocks under the head of her bed. So at this time she will be on Reglan 10 mg 4 times a day and continues her lanzoprazole and Linzess, and has senna and magnesium as a back up. Return office visit in 4 weeks Medications: New metoclopramide HCl (Reglan) increasing, ignore order for 5mg 10 mg PO QIDACHS 120 tabs 3RF Discontinued metoclopramide HCl Discontinued Reason: Doctor's Order 5 mg PO TID 270 tabs 1RF K31.84 - Gastroparesis Coding Level of Care Code Est Pt Level 4 (02290) Diagnoses Gastroparesis K31.84 GERD (gastroesophageal reflux disease) K21.9 Chronic idiopathic constipation K59.04 Time Spent (min) 37
[2024-12-04 12:50] VITALS: BP 136/76; PULSE 92; O2SAT 98; BMI 39.1
--- OUTSIDE RECORDS SUMMARY | 2024-12-04 13:28 | XMS_ITS | Encounter Summary ---
Author Organization [employer] Address [address] [facility] [facility] [address] [place] [address] Care Team Providers Care Materials Handler Name Role Phone Jayda Patiño MD Primary Care Provide r Reason for Visit * Reason Comments Med Refill Encounter Details Date Type Department Care Team ([facility] st Contact Info) Description 02/24/2023 Refill [facility] MED[facility]INE [address] [place] [address] Jayda Patiño MD [address] [place] [address] Chronic migraine without aura without status migrainosus, [...] Care Team (Late st Contact Info) Description 01/23/2025 2:45 PM EDT Office Visit [facility] [address] [place] [address] Jayda Patiño MD [address] [place] [address] 03/29/2025 1:00 PM EST Office Visit [facility] OPTOMETRY [address] [place] [address] Cain, Shama, OD [address] [place] [address] documented as of this encounter Visit Diagnoses Diagnosis Chronic migraine without aura without status migrainosus, not intractable Vitamin D deficiency Chronic rhinitis Hyperlipidemia, unspecified hyperlipidemia type documented in this encounter Additional Health Concerns Assessment Noted Time PHQ-9 Depression Total Score: 14 023 1:24 PM EDT documented as of this encounter Care Teams Materials Handler Relationship Specialty Start Date End Date Jayda Patiño MD [address] [place], [place] [phone] PCP - General Family Medicine 04/05/19 documented as of this encounter
--- OUTSIDE RECORDS SUMMARY | 2024-12-04 13:28 | XMS_ITS | Clinical Summary ---
Author Organization [facility] ity Address [address] [place] [address] Care Team Providers Care Supervisor Tumblers Name Role Phone Jayda Patiño MD Primary Care Provide r Surgical History Surgery Date Site/Laterality Comments BUNIONECTOMY 2014 Left PROCEDURE: [place] CORRJ HLX VLGS BNCTY SESMDC W/DOUBLE OSTEOTOMY OTHER SURGICAL HISTORY 12/28/12 PROCEDURE: OUTSIDE PAP SMEAR TUBAL LIGATION PROCEDURE: HISTORICAL TUBAL LIGATION EYE SURGERY Left PROCEDURE: HISTORICAL EYE SURGERY; COMMENT: EYELID CERVICAL BIOPSY W/ LOOP ELECTRODE EXCISION PROCEDURE: [place] CONIZATION CERVIX W/WO D&C RPR ELTRD EXC; [...] age to complete this topic Care Teams Supervisor Tumblers Relationship Specialty Start Date End Date Jayda Patiño MD [address] [place] [phone] PCP - General 06/16/23
== END 2024-12-04 13:15 | disposition home or self-care (01) ==
LOC: HO.HGI 12:46
PROVIDERS: PCP Internal Medicine; Visit Provider Nurse Practitioner
DX: K31.84 Gastroparesis (principal); K21.9 Gastro-esophageal reflux disease without esophagitis; K59.04 Chronic idiopathic constipation
CPT/HCPCS: 99214

== ENCOUNTER → 2024-12-04 12:46 | Outpatient (BNVA) | payer MEDICAID, SELFPAY | PROVIDERS: PCP Internal Medicine; Visit Provider Nurse Practitioner | DX: K21.9 Gastro-esophageal reflux disease without esophagitis (principal); K59.04 Chronic idiopathic constipation; K31.84 Gastroparesis | CPT/HCPCS: 99212 ==

== ENCOUNTER 2025-01-01 12:49 | Outpatient (AMB) | payer MEDICAID, SELFPAY ==
[2025-01-01 12:54] VITALS: BP 125/83; PULSE 90; BMI 38.7
--- NOTE | 2025-01-01 12:54 | A.OFFVIS_ITS ---
Vital Signs 01/01/25 12:54 Height 5 ft 4 in Weight 225 lb 4.999 oz BMI 38.7 BP 125/83 Blood Pressure Location Rt brachial Position Sitting Pulse 90 Intake Visit Reasons: paresis, abd pain Intake Note: Milady returns to in office follow up of abd pain and paresis. CC: Patient reports doing well with the medications. She states that she would like to have the metoclopramide 5 mg instead of the 10 mg. Credit Processor Required: Yes Credit Processor Language: [place] Accompanied by: Daughter Allergies cephalexin (From KEFLEX) Allergy (Intermediate, Verified 01/01/25 13:02) RASH diazepam (From VALIUM) Allergy (Intermediate, Verified 01/01/25 13:02) Anxiety menthol (From BenGay) Allergy (Intermediate, Verified 01/01/25 13:02) Rash methyl salicylate (From BenGay) Allergy (Intermediate, Verified 01/01/25 13:02) Rash Penicillins Allergy (Intermediate, Verified 01/01/25 13:02) RASH HPI HPI paresis, abd pain: Details: Assessment & Plan (1) Gastroparesis: Code(s): K31.84 - Gastroparesis Category: Medical (2) GERD (gastroesophageal reflux disease): Code(s): K21.9 - Gastro-esophageal reflux disease without esophagitis Category: Medical (3) Chronic idiopathic constipation: Code(s): K59.04 - Chronic idiopathic constipation Category: Medical Plan [place] #[place] Live She continues to have pain in the gastric area with eating and now she is having worsening reflux that frequently chokes her at night. She already has lime gastroparesis and as I discovered today, she was started on Zepbound for weight loss. This is likely severely exacerbating her existing gastroparesis. She has some relief with the Reglan 5 mg but not nearly enough. We will try increasing to 10 mg but she is educated that this is what the medication is supposed to do so I can only offset that by so much especially given that she already has overlying pre-existing gastroparesis. She is also educated about the risk of aspiration and to put blocks under the head of her bed. So at this time she will be on Reglan 10 mg 4 times a day and continues her lanzoprazole and Linzess, and has senna and magnesium as a back up. Return office visit in 4 weeks Medications: New metoclopramide HCl (Reglan) increasing, ignore order for 5mg 10 mg PO QIDACHS 120 tabs 3RF Discontinued metoclopramide HCl Discontinued Reason: Doctor's Order 5 mg PO TID 270 tabs 1RF K31.84 - Gastroparesis TODAYS VISIT [place] # [facility] Medical History Bilateral kidney stones Arthritis of left acromioclavicular joint Bursitis of left shoulder Daytime sleepiness Tendonitis of left rotator cuff Hydronephrosis with obstructing calculus Medication monitoring encounter Pre-op examination Renal calculi Injury of tendon of right rotator cuff TONIO (acute kidney injury) Kidney stones History of depression HTN (hypertension) Gout, arthritis Rotator cuff tendonitis Class 2 obesity GERD (gastroesophageal reflux disease) Renal colic Fibromyalgia Osteoarthritis Surgical History History of endometrial ablation Hx of cystoscopy H/O lithotripsy History of esophagogastroduodenoscopy (EGD) Hx of colonoscopy Family History Father Diabetes mellitus Hypercholesteremia Heart attack HTN (hypertension) Mother Diabetes mellitus HTN (hypertension) Heart attack Hypercholesteremia Cardiovascular disease Brother Liver cancer Brother Pancreatic cancer Brother Lymphoma Sister Cervical cancer Sister Cirrhosis of liver Family/Other Cancer Family/Other Ovarian cancer Social History Household Members: Family Are you a primary healthcare administrator to a significant other at home: No Do you presently have visiting nurse or other home services: No Alcohol intake: never Patient Tobacco Use Status: Former Tobacco user Tobacco use type: Cigarette Years Smoked: 25 +/- Second Hand Smoke Exposure: No Current occupational status: disabled Current occupation: rt handed Review of Systems Const Denies fatigue, Denies fever(s), Denies night sweats, Denies poor appetite and Reports weight loss (Intentional dieting/Zepbound) ENT Reports Normal hearing present, Denies dental pain, Denies dysphagia, Denies hearing loss, Denies mouth pain, Denies odynophagia, Denies throat swelling, Denies tongue swelling and Reports other (Dentition adequate) Card Reports no additional complaints Resp Reports no additional complaints GI Details: Denies abdominal pain, Denies melena, Denies bloating, Denies hematochezia, Reports constipation, Denies GI cramping, Denies dysphagia, Denies excessive flatus, Reports early satiety, Reports heartburn, Denies diarrhea, Denies nausea, Denies odynophagia, Denies vomiting and Denies hematemesis Skin/Breast Denies pruritus, Denies lesions, Denies rash and Denies jaundice Neuro Reports Normal hearing present and Denies Abnormal speech present Psych Reports anxiety Endo Denies fatigue Aller/Immun Denies throat swelling and Denies tongue swelling Physical Exam Vital Signs: Last Vital Signs Pulse 90 01/01/25 12:54 BP 125/83 01/01/25 12:54 BMI result Body Mass Index 38.7 Const General: cooperative, no acute distress, well developed and well groomed Nutritional Appearance: well nourished and obese Orientation/consciousness: oriented to person, oriented to place and oriented to time Limitations: language barrier HEENT Head: Yes normocephalic and Yes atraumatic Eyes General: appearance normal, both eyes and all related structures Pupils: Equal, round and reactive pupils present Neck Neck: Yes normal visual inspection and Yes no lymphadenopathy Thyroid: Thyroid normal Resp Effort & Inspection: normal respiratory effort and able to speak in complete sentences Auscultation: clear to auscultation bilaterally Cardio Rate: regular rate Rhythm: regular rhythm Heart sounds: Normal, physiologic split S2 sound present Peripheral pulses: radial pulses present and posterior tibial pulses present GI Inspection: No distended, Yes Abdominal panniculus present and Yes obesity Palpation (GI): Soft to palpation, nontender, no guarding, not rigid and No hepatosplenomegaly present Percussion: Yes normal to percussion Auscultation: normal bowel sounds Rectal Exam - Female: deferred Skin General skin exam: no rashes or lesions noted, turgor normal, skin not dry, no jaundice, No spider nevi and no striae Rashes: no rashes Nails: normal Neuro General: oriented to person, oriented to place and oriented to time Cranial nerves: Yes Equal, round and reactive pupils present and Yes Normal hear ing present Speech: No Abnormal speech present Extrem General: Yes normal to inspection, No clubbing, No cyanosis and No edema Psych Appearance: grossly normal and well kempt Mental Status: mental status grossly normal Speech and movement: Normal speech and movement present Affect: normal affect Attitude: cooperative Thought process: Normal thought process present and not confabulating Thought content: Normal thought content present Insight: Good insight present (Psych) Judgement: Good judgement present (Psych) Assessment & Plan Assessment & Plan (1) Gastroparesis: Code(s): K31.84 - Gastroparesis Category: Medical (2) GERD (gastroesophageal reflux disease): Code(s): K21.9 - Gastro-esophageal reflux disease without esophagitis Category: Medical (3) Chronic idiopathic constipation: Code(s): K59.04 - Chronic idiopathic constipation Category: Medical Plan [place] #Odessa Mckeon - The patient is a 59-year-old female presenting for continued follow-up of GERD and constipation symptoms management. - The patient's reflux symptoms have resolved with lansoprazole and Reglan but nervousness was noted at a 10 mg dose of metoclopramide, leading her to request a dose reduction. We will reduce her to 5 mg and watch to see if her GERD recurs due to gastric rumination. - There is a concern about potential recurrence of GERD symptoms following medication adjustment. - She reports no current gastrointestinal symptoms like nausea, vomiting, or altered bowel movements. - She has lost approximately 30 pounds, through GLP 1 assisted medications Return office visit in 6 months Reglan 10 mg 4 times a day, reduced to 5 mg, and continues her lanzoprazole and Linzess 290 micro g, and has senna and magnesium as a back up. Medications: New metoclopramide HCl (Reglan) 5 mg PO QIDACHS 360 tabs 1RF Refilled linaclotide (Linzess) 290 mcg PO DAILY 90 caps 3RF 90 days K59.04 - Chronic idiopathic constipation sennosides (senna) 17.2 mg (2 x 8.6 mg) PO BID PRN 180 tabs 1RF for constipation magnesium oxide 400 mg PO BID 180 tabs 3RF K59.04 - Chronic idiopathic constipation lansoprazole 30 mg PO DAILY 90 caps 1RF K21.9 - Gastro-esophageal reflux disease without esophagitis Discontinued metoclopramide HCl (Reglan) increasing, ignore order for 5mg Discontinued Reason: Doctor's Order 10 mg PO QIDACHS 120 tabs 3RF Coding Level of Care Code Est Pt Level 3 (20949) Diagnoses Gastroparesis K31.84 GERD (gastroesophageal reflux disease) K21.9 Chronic idiopathic constipation K59.04
--- OUTSIDE RECORDS SUMMARY | 2025-01-01 15:11 | XMS_ITS | Encounter Summary ---
Author Organization [email or web address] Address [address] [facility] [address] [place] [address] Care Team Providers Care Wool Merchant Name Role Phone Jayda Patiño MD Primary Care Provide r Encounter Details Date Type Department Care Team ([facility] st Contact Info) Description 02/02/2023 Abstract [facility] MEDICINE [address] [place] [address] Jayda Patiño MD [address] [place] [address] Social History Tobacco Use Types Packs/Day Years [...] Description 01/23/2025 2:45 PM EDT Office Visit [facility] MEDICINE [address] [place] [address] Jayda Patiño MD [address] [place] [address] 03/29/2025 1:00 PM EST Office Visit [facility] OPTOMETRY [address] [place], [place] [id number] Cain, Shama, OD [address] [place] [address] documented as of this encounter Procedures Procedure [...] documented as of this encounter Care Teams Wool Merchant Relationship Specialty Start Date End Date Jayda Patiño MD [address] [place] [address] PCP - General Family Medicine 04/05/19 documented as of this encounter
--- OUTSIDE RECORDS SUMMARY | 2025-01-01 15:11 | XMS_ITS | Clinical Summary ---
Author Organization [facility] ity Address [address] [place] [address] Care Team Providers Care Weather Stripper Name Role Phone Jayda Patiño MD Primary Care Provide r Surgical History Surgery Date Site/Laterality Comments BUNIONECTOMY 2014 Left PROCEDURE: [place] CORRJ HLX VLGS BNCTY SESMDC W/DOUBLE OSTEOTOMY OTHER SURGICAL HISTORY 12/28/12 PROCEDURE: OUTSIDE PAP SMEAR TUBAL LIGATION PROCEDURE: HISTORICAL TUBAL LIGATION EYE SURGERY Left PROCEDURE: HISTORICAL EYE SURGERY; COMMENT: EYELID CERVICAL BIOPSY W/ LOOP ELECTRODE EXCISION PROCEDURE: NE CONIZATION CERVIX W/WO D&C RPR ELTRD EXC; [...] - Td or Tdap) 06/05/2022 06/05/2012, 05/18/2005 Depression Screening 04/25/2024 COVID-19 Vaccine ( - 2023-2 5 season) 2024 Influenza Vaccine (#1) 2024 6, 02/27/2015 HIB [...] age to complete this topic Care Teams Weather Stripper Relationship Specialty Start Date End Date Jayda Patiño MD [address] [place] [phone] PCP - General 06/16/23
--- OUTSIDE RECORDS SUMMARY | 2025-01-01 15:11 | XMS_ITS | Encounter Summary ---
Author Organization [employer] Address [address] [facility] 7t [place] [address] Care Team Providers Care Reducing Machine Operator Name Role Phone Jayda Patiño MD Primary Care Provide r Reason for Visit * Reason Comments Med Refill Encounter Details Date Type Department Care Team ([facility] st Contact Info) Description 04/29/2023 Refill [facility] MEDICINE [address] [place], [place] [phone] Marilee Whittaker MD [address] [place], [place] [phone] Hyperlipidemia, unspecified hyperlipidemia type; Chronic migraine without [...] Description 01/23/2025 2:45 PM EDT Office Visit [facility] MEDICINE [address] [place] [address] Jayda Patiño MD [address] [place] [address] 03/29/2025 1:00 PM EST Office Visit [facility] OPTOMETRY [address] [place] [address] Cain, Shama, OD 230 [place] [address] documented as of this encounter Visit Diagnoses Diagnosis Hyperlipidemia, unspecified hyperlipidemia type Chronic migraine without aura without status migrainosus, not intractable Chronic rhinitis documented in this encounter Additional Health Concerns Assessment Noted Time PHQ-9 Depression Total Score: 14 023 1:24 PM EDT documented as of this encounter Care Teams Reducing Machine Operator Relationship Specialty Start Date End Date Jayda Patiño MD [address] [place] [address] PCP - General Family Medicine 04/05/19 documented as of this encounter
--- OUTSIDE RECORDS SUMMARY | 2025-01-01 15:11 | XMS_ITS | Encounter Summary ---
Author Organization [employer] Address [address] [facility] 7t [place] [address] Care Team Providers Care Lap Checker Name Role Phone Jayda Patiño MD Primary Care Provide r Reason for Visit * Reason Comments Med Refill Encounter Details Date Type Department Care Team ([facility] st Contact Info) Description 03/26/2023 Refill [facility] MEDICINE [address] [place], [place] [phone] Name, MD Lorenzo 230 [place] [address] Hypertension, unspecified type Social History Tobacco Use [...] Description 01/23/2025 2:45 PM EDT Office Visit [facility] MEDICINE [address] [place] [address] Jayda Patiño MD 230 [place] [address] 03/29/2025 1:00 PM EST Office Visit [facility] OPTOMETRY [address] [place] [address] Cain, Shama, OD 230 [place] [address] documented as of this encounter Visit Diagnoses Diagnosis Hypertension, unspecified type documented in this encounter Additional Health Concerns Assessment Noted Time PHQ-9 Depression Total Score: 14 023 1:24 PM EDT documented as of this encounter Care Teams Lap Checker Relationship Specialty Start Date End Date Jayda Patiño MD [address] [place] [address] PCP - General Family Medicine 04/05/19 documented as of this encounter
--- OUTSIDE RECORDS SUMMARY | 2025-01-01 15:11 | XMS_ITS | Encounter Summary ---
Author Organization [employer] Address [address] [facility] 7t [place] [address] Care Team Providers Care Rn Pool Name Role Phone Jayda Patiño MD Primary Care Provide r Reason for Visit * Reason Comments Med Refill Encounter Details Date Type Department Care Team ([facility] st Contact Info) Description 02/20/2024 Refill [facility] MEDICINE [address] [place] [address] Celena Farias DO 230 [place] [address] Chronic rhinitis Social History Tobacco Use Types [...] Description 01/23/2025 2:45 PM EDT Office Visit [facility] MEDICINE [address] [place] [address] Jayda Patiño MD [address] [place] [address] 03/29/2025 1:00 PM EST Office Visit [facility] OPTOMETRY [address] [place], [place] [phone] Cain, Shama, OD 230 [place] [address] documented as of this encounter Visit Diagnoses Diagnosis Chronic rhinitis documented in this encounter Additional Health Concerns Assessment Noted Time PHQ-9 Depression Total Score: 14 024 10:05 AM EST documented as of this encounter Care Teams Rn Pool Relationship Specialty Start Date End Date Jayda Patiño MD [address] [place] [address] [phone] PCP - General Family Medicine 04/05/19 documented as of this encounter
--- OUTSIDE RECORDS SUMMARY | 2025-01-01 15:11 | XMS_ITS | Encounter Summary ---
Author Organization [employer] Address [address] [facility] 7t [place] [address] Care Team Providers Care Corporate Travel Consultant Name Role Phone Jayda Patiño MD Primary Care Provide r Reason for Visit * Reason Comments Med Refill Encounter Details Date Type Department Care Team ([facility] st Contact Info) Description 03/24/2023 Refill [facility] MED & PEDS [address] [place], [place] [phone] Jayda Patiño MD 230 [place] [address] Vitamin D deficiency Social History Tobacco Use [...] Description 01/23/2025 2:45 PM EDT Office Visit [facility] MEDICINE [address] [place] [address] Jayda Patiño MD [address] [place] [address] 03/29/2025 1:00 PM EST Office Visit [facility] OPTOMETRY [address] [place] [address] Cain, Shama, OD 230 [place] [address] documented as of this encounter Visit Diagnoses Diagnosis Vitamin D deficiency documented in this encounter Additional Health Concerns Assessment Noted Time PHQ-9 Depression Total Score: 14 023 1:24 PM EDT documented as of this encounter Care Teams Corporate Travel Consultant Relationship Specialty Start Date End Date Jayda Patiño MD [address] [place] [phone] PCP - General Family Medicine 04/05/19 documented as of this encounter
--- OUTSIDE RECORDS SUMMARY | 2025-01-01 15:11 | XMS_ITS | Encounter Summary ---
Author Organization [employer] Address [address] [facility] 7t [place] [address] Care Team Providers Care Granulizing Machine Operator Name Role Phone Jayda Patiño MD Primary Care Provide r Reason for Visit * Reason Comments Med Refill Encounter Details Date Type Department Care Team ([facility] st Contact Info) Description 02/24/2023 Refill [facility] MEDICINE 230 [place] [address] Jayda Patiño MD 230 [place] [address] Chronic migraine without aura without status migrainosus, [...] 01/23/2025 2:45 PM EDT Office Visit [facility] MEDICINE 230 [place] [address] Jayda Patiño MD [address] [place] [address] 03/29/2025 1:00 PM EST Office Visit [facility] OPTOMETRY [address] [place] [address] Cain, Shama, OD 230 [place] [address] documented as of this encounter Visit Diagnoses Diagnosis Chronic migraine without aura without status migrainosus, not intractable Vitamin D deficiency Chronic rhinitis Hyperlipidemia, unspecified hyperlipidemia type documented in this encounter Additional Health Concerns Assessment Noted Time PHQ-9 Depression Total Score: 14 023 1:24 PM EDT documented as of this encounter Care Teams Granulizing Machine Operator Relationship Specialty Start Date End Date Jayda Patiño MD 230 [place], [place] [phone] PCP - General Family Medicine 04/05/19 documented as of this encounter
--- OUTSIDE RECORDS SUMMARY | 2025-01-01 15:11 | XMS_ITS | Clinical Summary ---
Author Organization [employer] Address [address] [place] [address] 7t [place] [address] Care Team Providers Care Senior Accountant Analyst Name Role Phone Jayda Patiño MD Primary [...] AT BEDTIME FOR SLEEP PARA DORMIR Active lansoprazole (Prevacid) [address] capsule [...] TIMES A DAY NEEDED FOR FOR CONSTIPATION 07/26/2 024 Active phentermine 15 MG capsuleIndication s:Class 3 severe obesity due to excess calories with serious comorbidity and body mass index (BMI) of 40.0 to 44.9 in adult Take 1 capsule (15 mg) by mouth before breakfast. 30 capsule 025 Active hydroCHLOROthiazi de (HYDRODiuril) 25 MG tabletIndications :Essential hypertension Take 1 tablet (25 mg) by mouth Once per day. 30 tablet 11 025 2025 Active loratadine (Claritin) 10 MG tabletIndications :Chronic rhinitis TAKE 1 TABLET BY MOUTH EVERY DAY NEEDED 90 tablet 1 025 Active folic acid (Folvite) 1 MG tabletIndications :Health care maintenance TOME 1 TABLETA POR VIA ORAL TODOS LOS BURRIS 90 tablet 1 025 Active meclizine (Antivert) 25 MG tabletIndications :Vertigo Take 1 tablet (25 mg) by mouth if needed in the morning, at noon, and at bedtime for dizziness. 30 tablet 025 Active D3-1000 25 MCG (1000 UT) capsuleIndication s:Vitamin D deficiency TAKE 1 CAPSULE BY MOUTH EVERY DAY 90 capsule 1 025 Active pravastatin (Pravachol) 40 MG tabletIndications :Hyperlipidemia, unspecified hyperlipidemia type TOME 1 TABLETA POR VIA ORAL TODOS [place]UR[place] 90 tablet 025 Active topiramate 50 MG tabletIndications :Chronic migraine without aura without status migrainosus, not intractable TOME 1 TABLETA POR VIA ORAL DOS VECES AL NORI 180 tablet 025 Active SUMAtriptan (Imitrex) 25 MG tabletIndications :Migraine without aura, not refractory TAKE 1 TAB ORALLY AFTER MIGRAINE ONSET MAY REPEAT AFTER 2HRS IF HEADACHE RETURNS,MAX 200MG IN 24HRS 9 tablet 3 025 Active meloxicam (Mobic) 15 MG tabletIndications :Polyarthralgia TOME 1 TABLETA POR VIA ORAL TODOS [place]UR[place] 30 tablet 025 Active Tirzepatide-Weigh t Management (Zepbound) 7.5 MG/0.5ML solution auto-injectorIndi cations:Class 3 severe obesity due to excess calories with serious comorbidity and body mass index (BMI) of 40.0 to 44.9 in adult Inject 0.5 mL (7.5 mg) under the skin 1 (one) time per week. INJECT ONE PEN (=7.5 MG) SUBCUTANEOUSLY ONCE A WEEK 2 mL 025 Active Tirzepatide-Weigh t Management (Zepbound) 5 MG/0.5ML solution auto-injectorIndi cations:Class 3 severe obesity due to excess calories with serious comorbidity and body mass index (BMI) of 40.0 to 44.9 in adult Inject 0.5 mL (5 mg) under the skin 1 (one) time per week. INJECT ONE PEN (=5 MG) SUBCUTANEOUSLY ONCE A WEEK 2 mL 025 2024 Discontinued Active Problems Problem Noted Date Diagnosed Date Class 3 severe obesity due t o excess calories with serious comorbidity and body mass index (BMI) of 40.0 to 44.9 in adult 07/12/2024 Assessment & Plan (09/05/2024 2:45 PM EDT): Patient reports she has not lose any weight after starting phentermine on she has been having palpitations (recent documentation of heart rate of 117 at recent GI appointment) and started feeling very anxious, also she has noticed her blood pressure is high and uncontrolled (recent documentation of blood pressure of 143/87 at recent GI appointment) patient is taking her blood pressure medication as prescribed, for this reason I will discontinue phentermine and I will prescribe for her Zepbound Assessment & Plan (07/12/2024 4:32 PM EDT): [...] 09/06/2022 Essential hypertension 09/06/2022 Assessment & Plan (09/05/2024 2:30 PM EDT): Blood pressure is uncontrolled, I will go up on her hydrochlorothiazide to 25mg daily, I advise low Na diet Assessment & Plan (07/12/2024 4:31 PM EDT): [...] Osteoarthritis of both knees 09/06/2022 Palpitations 09/06/2022 Assessment & Plan (09/05/2024 2:42 PM EDT): Elevated HR 117 (documented on recent GI appointment 09/04/24) this is likely secondary to phentermine, I advise to stop medication and to ensure proper hydration, I will continue to monitor patient will come in person in 6 weeks Kidney stone 09/06/2022 Chronic left shoulder pain [...] Encounters Date Type Department Care Team Description 12/19/[address] [facility] MEDICINE [address] [place] [address] Jayda Patiño MD Class 3 severe obesity due to excess calories with serious comorbidity and body mass index (BMI) of 40.0 to 44.9 in adult 11/30/[address] [facility] MEDICINE [address] [place], [place] [phone] Jayda Patiño MD Polyarthralgia 11/21/[address] [facility] MEDICINE [address] [place], [place] [phone] Jayda Patiño MD Medication Question 11/20/[address] [facility] MEDICINE [address] [place] [address] Jayda Patiño MD Class 3 severe obesity due to excess calories with serious comorbidity and body mass index (BMI) of 40.0 to 44.9 in adult 11/12/2024 Refill [facility] MEDICINE [address] [place] [address] Jayda Patiño MD Polyarthralgia 11/05/[address] [facility] MEDICINE [address] [place] [address] Jayda Patiño MD Polyarthralgia; Migraine without aura, not refractory 11/05/[address] [facility] MEDICINE [address] [place] [address] Lissette White MD Hyperlipidemia, unspecified hyperlipidemia type; Chronic migraine without aura without status migrainosus, not intractable; Migraine without aura, not refractory 10/31/[address] [facility] MEDICINE [address] [place] [address] Celena Farias, DO Polyarthralgia 10/27/[address] [facility] MEDICINE [address] [place] [address] Jayda Patiño MD Class 3 severe obesity due to excess calories with serious comorbidity and body mass index (BMI) of 40.0 to 44.9 in adult 10/12/[address] [facility] MEDICINE [address] [place] [address] Celena Farias, DO Polyarthralgia 10/12/2024 Refill [facility] MED & PEDS [address] [place] [address] Jayda Patiño MD Vitamin D deficiency 10/11/[address] [facility] MEDICINE [address] [place] [address] Jayda Patiño MD Hyperlipidemia, unspecified hyperlipidemia type; Chronic migraine without aura without status migrainosus, not intractable 10/08/[address] [facility] MEDICINE [address] [place] [address] Jayda Patiño MD Vertigo 10/08/[address] [facility] MEDICINE [address] [place] [address] Celena Farias DO Chronic rhinitis 10/08/[address] [facility] MEDICINE [address] [place] [address] Jayda Patiño MD Health care maintenance 10/05/2024 Refill [facility] MEDICINE [address] [place] [address] Jayda Patiño MD Health care maintenance 10/04/2024 Refill [facility] MEDICINE [address] [place] [address] Jayda Patiño MD Class 3 severe obesity due to excess calories with serious comorbidity and body mass index (BMI) of 40.0 to 44.9 in adult 10/04/[address] [facility] MEDICINE [address] [place] [address] Jayda Patiño MD Chronic rhinitis 10/03/[address] [facility] MEDICINE [address] [place] [address] Jayda Patiño MD Polyarthralgia 10/02/2024 Refill [facility] MED & PEDS [address] [place] [address] Jayda Patiño MD Chronic rhinitis from Last 3 Months Immunizations Immunization Administration Dates Next Due Influenza Injectable Quadriv [...] is your housing situation today? I have lumage ortiz 07/12/[address] you [...] 96 07/12/2024 1:36 PM EDT Temperature 36.1 C (97 F) 07/12/2024 1:36 PM EDT Respiratory Rate 20 [...] Description 01/23/2025 2:45 PM EDT Office Visit [facility] MEDICINE [address] [place] [address] Jayda Patiño MD 230 [place] [address] 03/29/2025 1:00 PM EST Office Visit [facility] OPTOMETRY [address] [place] [address] Shama Barlow, OD 230 [place] [address] Health Maintenance Due Date Last Done Comments CT Colonography 1966 FIT DNA/Cologuard 1965 FIT 1965 FOBT 1965 HIV Screening 1965 Sigmoidoscopy 1965 Disability Screening 1966 Hepatitis B Vaccines (1 of 3 - 19+ 3-dose series) 1985 Pneumococcal Vaccine: 50+ Years (1 of 1 - PCV) 2016 Zoster Vaccines (2 of 3) 10/10/2018 08/15/2018 DTaP/Tdap/Td Vaccines (2 - Td or Tdap) 06/05/2022 06/05/2012, 05/18/2005, 01/25/1995 COVID-19 Vaccine ( - season) 2024 Influenza Vaccine (#1) 2024 , 03/17/2021, 01/08/2020, Additional history exists Mammogram [...] PM EST) Hemoglobin A1c 5.8 <6.0 % [facility] Comment:Hemoglobin A1C Refer ence Range Adults: 4.8 - 6.0 % Non diabetic: < 6.0 % Goal: < 7.0 %Additional Action Suggested: > 8.0 %Note: Hemoglobin A1c results are invalid for patients with abnormal amounts of HbF. Blood transfusions may impact the HbA1c concentration in the patient sample. Estimated Average Glucose 120 mg/dL [facility] Comment:eAG = Estimated ave rage glucose which is %A1C expressed asaverage glucose, using the formula of the B3F-UbyhpwcCdftdwh Glucose study (ADAG), Diabetes Care, Vol.31,#8,Nov. 2007 Blood Venous blood specimen / Unknown 04/23/2024 1:38 PM EST 04/23/2024 4:11 PM EST us Jayda Mcelroy MD LAB BLOOD ORDERABLES Final Result [facility] [address] [place] [phone] * (ABNORMAL) Lipid Panel, Standard (04/23/2024 1:38 PM EST) Triglycerides 319(H) <150 mg/dL [facility] Comment:Desirable Triglyceri de: less than 150 mg/dLBorderline High Triglyceride 150-199 mg/dLHigh Triglyceride: 200-499 mg/dLVery High Triglyceride: greater than or equal to 5OO mg/dL Cholesterol 191 <200 mg/dL [facility] Comment:Desirable Cholestero l: less than 200 mg/dLBorderline High Cholesterol: 200-239 mg/dLHigh Cholesterol: greater than 239 mg/dL LDL Cholesterol Calculated 97 <100 mg/dL [facility] Comment:Desirable LDL: less than 100 mg/dLNear Optimal/Above Optimal LDL: 110- 129 mg/dLBorderline High LDL: 130-159 mg/dLHigh LDL: 160-189 mg/dLVery High LDL: greater than or equal to 190 mg/dL HDL Cholesterol 31(L) >40 mg/dL [facility] Comment:Desirable HDL: great er than 40 mg/dL Note: This HDL assay may give artificially low results in patients with liver disease. Blood Venous blood specimen / Unknown 04/23/2024 1:38 PM EST 04/23/2024 4:11 PM EST us Jayda Mcelroy MD LAB BLOOD ORDERABLES Final Result [facility] [address] [place] [phone] * BI Mammogram Screening Tomosynthesis Bilateral (01/24/2024 12:35 PM EDT) Anatomical Region Laterality Modality Breast Bilateral Mammography 01/24/2024 12:3 5 PM EDT Narrative 02/03/2024 9:07 AM EDT [facility] [address] [place] [address] [place] [address] Mammography Report Signed Patient: Milady Dean MR#: [id number] : 1965 Acct:[id number] Age/Sex: 58 / F ADM Date: 01/24/24 Loc: MAMMO Attending Dr: Jayda Mcelroy MD Ordering Physician: Jayda Patiño MD Results: 1Negative Date of Service: 01/24/24 Follow Up: 1 Year From Orig inal Mammogram Procedure(s): MM tomosynthesis screening BI Accession Number(s): [id number] cc: Jayda Patiño MD EXAMINATION: MM SCREENING [...] 02/03/24 0904 DD/ 1235 TD/TT: 01/24/24 1250 Beading Sawyer: Procedure Note Donotuseinterpreter, Image - 02/03/2024 [facility] [address] [place] [address] Mammography Report Signed Patient: Mabel Dean#: [id number] : 1965Acct:[id number] Age/Sex: 58 / FADM Date: 01/24/24 Loc: [place] Attending Dr: Jayda Mcelroy MD Ordering Physician: Barciona Mcelroy,Jayda MDResults: 1Negative Date of Service: 01/24/24Follow Up: 1 Year From Orig inal Mammogram Procedure(s): MM tomosynthesis screening BI Accession Number(s): [id number] cc: Jayda Patiño MD EXAMINATION: MM SCREENING [...] Ines Velazquez DO 02/03/2024 09:04 AM EDT RP Dictated By: Maria Ines Velazquez DO Signed By: <Electronically signed by Maria Ines Velazquez DO in OV> 02/03/24 0904 DD/ 1235 TD/TT: 01/24/24 1250 Beading Sawyer: Jayda Mcelroy MD IMG BI PROCEDURES Gabriel kristen Result - Final * Hm Colonoscopy (08/18/2023 10:07 AM EDT) Colonoscopy Normal Normal Narrative Mally, Donna - 08/18/2023 10:07 AM EDT Repeat Colonoscopy in 3 years due to polyps and fair prep on right side or earlier if clinically indicated see the external hospital admission note on 08/18/2023 Historical Provider [facility] Edited Result - Final * HPV mRNA E6/E7 w/Reflex to HPV Genotypes 16, 18/45 (07/01/2023 2:31 PM EST) HPV nRNA E6/E7 Not Detected Not Detected [facility] Comment:Methodology: Transcr iption-Mediated AmplificationThis assay detects E6/E7 viral messenger RNA (mRNA) from 14high-risk HPV types (16,18,31,33,35,39,45,51,52,56,58,59,66,68).Cervical sources are required for HPV testing.If a vaginal source from a patient who has had atotal hysterectomy with removal of cervix wassubmitted, please contact the testing laboratoryfor alternative testing options.For additional information, please refer tohttp://education.[employer]/faq/PIO844b1(This link if provided for information/educational purposes only.)THIS TEST WAS PERFORMED AT:[employer] [place] [phone] SANCHEZ MD HPV mRNA E6/E7 [facility] HPV 16 RNA [facility] HPV 18/45 RNA [facility] 07/01/2023 2:31 PM EST 07/04/2023 8:45 AM EDT [facility] LAB CYTOLOGY ORDERABLES Final Result Performing Organization Address City/State/[facility] Co de Phone Number [facility] [address] [place] [phone] * Pap Smear (07/01/2023 2:31 PM EST) Swab Cervix uteri structure / Unknown 07/01/2023 2:31 PM EST 07/04/2023 8:45 AM EDT Narrative [facility] - 07/12/2023 9:30 AM EDT ----- ------- Name: Milady Dean Age/Sex: 58/F : 1965 Unit#: [id number] Attend Dr: Lora Wise Re07/01/23 Status: DEP REF Location: [facility] Disch: ----- ------- SPEC : [id number] RECD: 07/04/23-844 STATUS: CLOVER SAAVEDRA NUM: [id number] TAMEKA: 07/01/23-[address]: Lora WiseP ENTERED: 07/04/23-104 SP TYPE: Pap Smr OTHR DR: ORDERED: Pap Smear Interpretation Satisfactory for evaluation. No endocervical cells seen. Cytolysis noted. Negative for intraepithelial lesion or malignancy. HPV mRNA E6/E7: NOT DETECTED This assay detects E6/E7 viral messenger RNA (mRNA) from 14 high-risk HPV types (16, 18, 31, 33, 35, 39, 45, 51, 52, 56, 58, 59, 66, 68) HPV testing performed by [email or web address], [place], [place]. See reference laboratory portion of the EMR for entire report. Clinical Information LMP: Postmenopausal Previous PAP test: Unknown date/findings Material Received ThinPrep-Vaginal/Cervical ----- ------- Signed (signature on file) JEROME Jimenez (ASCP) 07/12/23 0930 ----- ------- END OF REPORT [facility] LAB CYTOLOGY ORDERABLES Final Result [facility] [address] [place] [phone] [phone] * HEPATITIS C AB W/REFL TO HCV RNA, QN, PCR (09/16/2020 11:17 AM EDT) HEPATITIS C ANTIBODY NON-REACT KYE NON-REACT KYE [facility] INDEX 0.01 <1.00 [facility] Comment: HCV antibody was non-reactive. There is no laboratory evidence of HCV infection. In most cases, no further action is required. However, if recent HCV exposure is suspected, a test for HCV RNA (test code 99895) is suggested. For additional information please refer to http://education.[employer]/faq/ILL30a4 (This link is being provided for informational/ educational purposes only.) 09/16/2020 11:1 7 AM EDT Jayda Mcelroy MD HISTORICAL/NON ORDERA BLE LABS Final Result [facility] [address] from Last 3 Months or Most Recently Relevant to Health Maintenance Insurance [facility] Care Teams Senior Accountant Analyst Relationship Specialty Start Date End Date Jayda Patiño MD [address] [place] [phone] PCP - General Family Medicine 04/05/19
--- OUTSIDE RECORDS SUMMARY | 2025-01-01 15:11 | XMS_ITS | Encounter Summary ---
Author Organization [employer] Address [address] [facility] 7t [place] [address] Care Team Providers Care Dye Tub Tender Name Role Phone Jayda Patiño MD Primary Care Provide r Reason for Visit * Reason Comments Med Refill Encounter Details Date Type Department Care Team ([facility] st Contact Info) Description 04/04/2023 Refill [facility] MEDICINE 230 [place], [place] [phone] Marilee Whittaker MD 230 [place], [place] [phone] Chronic migraine without aura without status migrainosus, not intractable Social History Tobacco Use Types Packs/Day Years Used Date Smoking Tobacco: Never Passive Smoke Exposure: Never Smokeless Tobacco: Never Depression Answer Date Recorded Patient Health Questionnaire-9 Score 14 09/06/2022 Housing Stability Answer Date Recorded What is your housing situation today? I have lmua ortiz 02/09/[address] you [...] Description 01/23/2025 2:45 PM EDT Office Visit [facility] 230 [place] [address] Jayda Patiño MD 230 [place] [address] 03/29/2025 1:00 PM EST Office Visit [facility] OPTOMETRY [address] [place] [address] Cain, Shama, OD 230 [place] [address] documented as of this encounter Visit Diagnoses Diagnosis Chronic migraine without aura without status migrainosus, not intractable documented in this encounter Additional Health Concerns Assessment Noted Time PHQ-9 Depression Total Score: 14 023 1:24 PM EDT documented as of this encounter Care Teams Dye Tub Tender Relationship Specialty Start Date End Date Jayda Patiño MD 230 [place] [address] PCP - General Family Medicine 04/05/19 documented as of this encounter
--- OUTSIDE RECORDS SUMMARY | 2025-01-01 15:11 | XMS_ITS | Encounter Summary ---
Author Organization [employer] Address [address] [facility] 7t [place] [address] Care Team Providers Care Development Director Name Role Phone Jayda Patiño MD Primary Care Provide r Reason for Visit * Reason Comments Med Refill Encounter Details Date Type Department Care Team ([facility] st Contact Info) Description 12/31/2023 Refill [facility] MEDICINE 230 [place], [place] [phone] Marilee Whittaker MD 230 [place], [place] [phone] Chronic migraine without aura without status migrainosus, [...] Description 01/23/2025 2:45 PM EDT Office Visit [facility] MEDICINE 230 [place] [address] Jayda Patiño MD 230 [place] [address] 03/29/2025 1:00 PM EST Office Visit [facility] OPTOMETRY [address] [place] [address] Cain, Shama, OD 230 [place] [address] documented as of this encounter Visit Diagnoses Diagnosis Chronic migraine without aura without status migrainosus, not intractable documented in this encounter Additional Health Concerns Assessment Noted Time PHQ-9 Depression Total Score: 14 024 10:05 AM EST documented as of this encounter Care Teams Development Director Relationship Specialty Start Date End Date Jayda Patiño MD [address] [place] [address] PCP - General Family Medicine 04/05/19 documented as of this encounter
--- OUTSIDE RECORDS SUMMARY | 2025-01-01 15:11 | XMS_ITS | Encounter Summary ---
Author Organization [employer] Address [address] [facility] 7t [place] [address] Care Team Providers Care Track Announcer Name Role Phone Jayda Patiño MD Primary Care Provide r Reason for Visit * Reason Comments Med Refill Encounter Details Date Type Department Care Team ([facility] st Contact Info) Description 01/14/2024 Refill [facility] MEDICINE 230 [place] [address] Jayda Patiño MD 230 [place] [address] Health care maintenance Social History Tobacco Use [...] Description 01/23/2025 2:45 PM EDT Office Visit [facility] MEDICINE 230 [place] [address] Jayda Patiño MD 230 [place] [address] 03/29/2025 1:00 PM EST Office Visit [facility] OPTOMETRY [address] [place] [address] Cain, Shama, OD 230 [place] [address] documented as of this encounter Visit Diagnoses Diagnosis Health care maintenance documented in this encounter Additional Health Concerns Assessment Noted Time PHQ-9 Depression Total Score: 14 024 10:05 AM EST documented as of this encounter Care Teams Track Announcer Relationship Specialty Start Date End Date Jayda Patiño MD 230 [place] [address] PCP - General Family Medicine 04/05/19 documented as of this encounter
--- OUTSIDE RECORDS SUMMARY | 2025-01-01 15:11 | XMS_ITS | Encounter Summary ---
Author Organization [employer] Address 75 [facility] 7t [place] [address] Care Team Providers Care Dyehouse Worker Name Role Phone Jayda Patiño MD Primary Care Provide r Reason for Visit * Reason Comments Med Refill Encounter Details Date Type Department Care Team ([facility] st Contact Info) Description 01/14/2024 Refill [facility] MEDICINE 230 [place], [place] [phone] Celena Farias DO 230 [place] [address] Chronic rhinitis Social History Tobacco Use Types [...] Description 01/23/2025 2:45 PM EDT Office Visit [facility] MEDICINE 230 [place] [address] Jayda Patiño MD 230 [place] [address] 03/29/2025 1:00 PM EST Office Visit [facility] OPTOMETRY [address] [place], [place] [phone] Cain, Shama, OD 230 [place] [address] documented as of this encounter Visit Diagnoses Diagnosis Chronic rhinitis documented in this encounter Additional Health Concerns Assessment Noted Time PHQ-9 Depression Total Score: 14 024 10:05 AM EST documented as of this encounter Care Teams Dyehouse Worker Relationship Specialty Start Date End Date Jayda Patiño MD [address] [place] [address] [phone] PCP - General Family Medicine 04/05/19 documented as of this encounter
--- OUTSIDE RECORDS SUMMARY | 2025-01-01 15:12 | XMS_ITS | Encounter Summary ---
Author Organization [employer] Address [address] [facility] 7t [place] [address] Care Team Providers Care Vp Respiratory Name Role Phone Jayda Patiño MD Primary Care Provide r Reason for Visit * Reason Comments Med Refill Encounter Details Date Type Department Care Team ([facility] st Contact Info) Description 07/07/2023 Refill [facility] MED[facility]INE 230 [place] [address] Jayda Patiño MD 230 [place] [address] Health care maintenance Social History Tobacco Use [...] Office Visit [facility] MEDICINE 230 [place] [address] Jayda Patiño MD 230 [place] [address] 03/29/2025 1:00 PM EST Office Visit [facility] OPTOMETRY [address] [place] [address] Cain, Shama, OD 230 [place] [address] documented as of this encounter Visit Diagnoses Diagnosis Health care maintenance documented in this encounter Additional Health Concerns Assessment Noted Time PHQ-9 Depression Total Score: 14 024 10:05 AM EST documented as of this encounter Care Teams Vp Respiratory Relationship Specialty Start Date End Date Jayda Patiño MD 230 [place] [address] PCP - General Family Medicine 04/05/19 documented as of this encounter
--- OUTSIDE RECORDS SUMMARY | 2025-01-01 15:12 | XMS_ITS | Encounter Summary ---
Author Organization [employer] Address [address] [place] [address] 7t [place] [address] Care Team Providers Care Account Consultant Name Role Phone Jayda Patiño MD Primary Care Provide r Reason for Visit * Reason Comments Med Refill Encounter Details Date Type Department Care Team ([facility] Contact Info) Description 07/30/2022 Refill [facility] 230 [place] [address] Lia Edwards, GRETCHEN [address] [place] [address] Chronic right shoulder pain Social History Tobacco [...] Upcoming Encounters Date Type Department Care Team ([facility] Contact Info) Description 01/23/2025 2:45 PM EDT Office Visit [facility] 230 [place] [address] Jayda Patiño MD 230 [place] [address] 03/29/2025 1:00 PM EST Office Visit [facility] OPT[facility] [address] [place] [address] Shama Barlow, OD 230 [place] [address] documented as of this encounter Visit Diagnoses Diagnosis Chronic right shoulder pain Pain in joint, shoulder region documented in this encounter Care Teams Account Consultant Relationship Specialty Start Date End Date Jayda Patiño MD 230 [place] [address] PCP - General Family Medicine 04/05/19 documented as of this encounter
--- OUTSIDE RECORDS SUMMARY | 2025-01-01 15:12 | XMS_ITS | Encounter Summary ---
Author Organization [employer] Address [address] [facility] 7t [place] [address] Care Team Providers Care Cinder Crusher Operator Name Role Phone Jayda Patiño MD Primary Care Provide r Reason for Visit * Reason Onset Date Comments Med Refill 10/08/2024 Encounter Details Date Type Department Care Team ([facility] st Contact Info) Description 10/08/2024 Refill [facility] 230 [place] [address] Jayda Patiño MD 230 [place] [address] Health care maintenance Social History Tobacco Use [...] enough money to get more: Never True 03/ Transportation Answer Date Recorded In the past [...] Description 01/23/2025 2:45 PM EDT Office Visit [facility] 230 [place] [address] Jayda Patiño MD 230 [place] [address] 03/29/2025 1:00 PM EST Office Visit [facility] OPTOMET[facility] [address] [place] [address] Cain, Shama, OD 230 [place] [address] documented as of this encounter Visit Diagnoses Diagnosis Health care maintenance documented in this encounter Additional Health Concerns Assessment Noted Time PHQ-9 Depression Total Score: 0 07/13/19 25 1:37 PM EDT documented as of this encounter Care Teams Cinder Crusher Operator Relationship Specialty Start Date End Date Jayda Patiño MD [address] [place] [id number] PCP - General Family Medicine 04/05/19 documented as of this encounter
--- OUTSIDE RECORDS SUMMARY | 2025-01-01 15:12 | XMS_ITS | Encounter Summary ---
Author Organization [employer] Address 75 [facility] 7t [place] [address] Care Team Providers Care Diaper Folder Name Role Phone Jayda Patiño MD Primary Care Provide r Reason for Visit * Reason Comments Med Refill Encounter Details Date Type Department Care Team ([facility] st Contact Info) Description 07/10/[address] [facility] MEDICINE 230 [place] [address] Jayda Patiño MD 230 [place] [address] Hyperlipidemia, unspecified hyperlipidemia type; Hypertension, unspecified type; [...] AM EDT documented as of this encounter Functional Status * Over the past 2 weeks, how often have you been bothered by any of the following problems? Question Answer Date of Assessment Author Patient Health Questionnaire -2 Score 0 07/12/2024 1:37 PM EDT Robb Miller MA * Little interest or pleasure in doing things Answer Date of Assessment Author Not at all 07/12/2024 1:37 PM EDT Kimberly Miller MA * Feeling down, depressed, or hopeless Answer Date of Assessment Author Not at all 07/12/2024 1:37 PM KECIAT Kimberly Miller MA * Trouble falling or staying asleep, or sleeping too much Answer Date of Assessment Author Not at all 07/12/2024 1:37 PM EDT Kimberly Miller MA * Feeling tired or having little energy Answer Date of Assessment Author Not at all 07/12/2024 1:37 PM EDT Kimberly Miller MA * Poor appetite or overeating Answer Date of Assessment Author Not at all 07/12/2024 1:37 PM EDT Kimberly Miller MA * Feeling bad about yourself - or that you are a failure or have let yourself or your family down Answer Date of Assessment Author Not at all 07/12/2024 1:37 PM EDT Kimberly Miller MA * Trouble concentrating on things, such as reading the newspaper or watching television Answer Date of Assessment Author Not at all 07/12/2024 1:37 PM EDT Kimberly Miller MA * Moving or speaking so slowly that other people could have noticed? Or the opposite - being so fidgety or restless that you have been moving around a lot more than usual. Answer Date of Assessment Author Not at all 07/12/2024 1:37 PM EDT Kimberly Miller MA * Thoughts that you would be better off or hurting yourself in some way Answer Date of Assessment Author Not at all 07/12/2024 1:37 PM EDT Kimberly Miller MA * Patient Health Questionnaire-9 Score Answer Date of Assessment Author 0 07/12/2024 1:37 PM EDT Kimberly Miller MA documented as of this encounter Plan of Treatment Upcoming Encounters Date Type Department Care Team (Late st Contact Info) Description 01/23/2025 2:45 PM EDT Office Visit [facility] MEDICINE 230 [place] [address] Jayda Patiño MD 230 [place] [address] 03/29/2025 1:00 PM EST Office Visit [facility] OPTOMETRY [address] [place] [address] Cain, Shama, OD 230 [place] [address] documented as of this encounter Visit Diagnoses Diagnosis Hyperlipidemia, unspecified hyperlipidemia type Hypertension, unspecified type Chronic migraine without aura without status migrainosus, not intractable documented in this encounter Additional Health Concerns Assessment Noted Time PHQ-9 Depression Total Score: 14 024 10:05 AM EST documented as of this encounter Care Teams Diaper Folder Relationship Specialty Start Date End Date Jayda Patiño MD 230 [place] [address] PCP - General Family Medicine 04/05/19 documented as of this encounter
--- OUTSIDE RECORDS SUMMARY | 2025-01-01 15:12 | XMS_ITS | Encounter Summary ---
Author Organization [employer] Address [address] [facility] 7t [place] [address] Care Team Providers Care Ribbon Inker Name Role Phone Jayda Patiño MD Primary Care Provide r Reason for Visit * Reason Comments Med Refill Encounter Details Date Type Department Care Team ([facility] st Contact Info) Description 07/26/2024 Refill [facility] MEDICINE 230 [place] [address] Jayda Patiño MD 230 [place] [address] Class 3 severe obesity due to excess [...] Description 01/23/2025 2:45 PM EDT Office Visit [facility] MEDICINE 230 [place] [address] Jayda Patiño MD 230 [place] [address] 03/29/2025 1:00 PM EST Office Visit [facility] OPTOMETRY [address] [place], [place] [phone] Cain, Shama, OD 230 [place] [address] documented as of this encounter Visit Diagnoses Diagnosis Class 3 severe obesity due to excess calories with serious comorbidity and body mass index (BMI) of 40.0 to 44.9 in adult documented in this encounter Additional Health Concerns Assessment Noted Time PHQ-9 Depression Total Score: 0 07/13/19 25 1:37 PM EDT documented as of this encounter Care Teams Ribbon Inker Relationship Specialty Start Date End Date Jayda Patiño MD [address] [place] [address] PCP - General Family Medicine 04/05/19 documented as of this encounter
--- OUTSIDE RECORDS SUMMARY | 2025-01-01 15:12 | XMS_ITS | Encounter Summary ---
Author Organization [employer] [facility] Address [address] [place] [address] 7t [place] [address] Care Team Providers Care Plush Dresser Name Role Phone Jayda Patiño MD Primary Care Provide r Reason for Visit * Reason Comments Med Refill Encounter Details Date Type Department Care Team (Late st Contact Info) Description 05/22/2022 Refill [facility] 230 [place] [address] Celena Farias DO 230 [place] [address] Hypertension, unspecified type Social History Tobacco Use [...] Visit [facility] MEDICINE [address] [place] [address] Jayda Patiño MD 230 [place] [address] 03/29/2025 1:00 PM EST Office Visit [facility] OPTOMETRY [address] [place] [address] Shama Barlow, OD 230 [place] [address] documented as of this encounter Visit Diagnoses Diagnosis Hypertension, unspecified type documented in this encounter Care Teams Plush Dresser Relationship Specialty Start Date End Date Jayda Patiño MD 230 [place] [address] PCP - General Family Medicine 04/05/19 documented as of this encounter
--- OUTSIDE RECORDS SUMMARY | 2025-01-01 15:12 | XMS_ITS | Encounter Summary ---
Author Organization [employer] Address 75 [facility] 7t [place] [address] Care Team Providers Care Shoe Cobbler Name Role Phone Jayda Patiño MD Primary Care Provide r Reason for Visit * Reason Comments Med Refill Encounter Details Date Type Department Care Team ([facility] st Contact Info) Description 11/05/2024 Refill [facility] MEDICINE 230 [place] [address] Jayda Patiño MD 230 [place] [address] Polyarthralgia; Migraine without aura, not refractory Social History Tobacco Use Types Packs/Day Years [...] your housing situation today? I have luma sing 07/12/[address] you li [...] Description 01/23/2025 2:45 PM EDT Office Visit [facility] MEDICINE 230 [place] [address] Jayda Patiño MD [address] [place] [address] 03/29/2025 1:00 PM EST Office Visit [facility] OPTOMETRY [address] [place] [address] Cain, Shama, OD 230 [place] [address] documented as of this encounter Visit Diagnoses Diagnosis Polyarthralgia Pain in joint, multiple sites Migraine without aura, not refractory documented in this encounter Additional Health Concerns Assessment Noted Time PHQ-9 Depression Total Score: 0 07/13/19 25 1:37 PM EDT documented as of this encounter Care Teams Shoe Cobbler Relationship Specialty Start Date End Date Jayda Patiño MD [address] [place] [address] PCP - General Family Medicine 04/05/19 documented as of this encounter
--- OUTSIDE RECORDS SUMMARY | 2025-01-01 15:12 | XMS_ITS | Encounter Summary ---
Author Organization [employer] [facility] Address [address] [place] [address] 7t [place] [address] Care Team Providers Care Long Term Name Role Phone Jayda Patiño MD Primary Care Provide r Reason for Visit * Reason Comments Med Refill Encounter Details Date Type Department Care Team (Late Contact Info) Description 08/13/2022 Refill [facility] MEDICINE 230 [place], [place] [phone] Lissette White MD 230 [place] [address] Chronic rhinitis Social History Tobacco Use Types [...] Department Care Team (Late Contact Info) Description 01/23/2025 2:45 PM EDT Office Visit [facility] MEDICINE [address] [place] [address] Jayda Patiño MD [address] [place] [address] 03/29/2025 1:00 PM EST Office Visit [facility] OPTOMETRY [address] [place], [place] [phone] Shama Barlow, OD 230 [place] [address] documented as of this encounter Visit Diagnoses Diagnosis Chronic rhinitis documented in this encounter Care Teams Long Term Relationship Specialty Start Date End Date Jayda Patiño MD 230 [place] [address] PCP - General Family Medicine 04/05/19 documented as of this encounter
--- OUTSIDE RECORDS SUMMARY | 2025-01-01 15:12 | XMS_ITS | Encounter Summary ---
Author Organization [employer] [facility] Address [address] [place] [address] 7t [place] [address] Care Team Providers Care Starting Gate Driver Name Role Phone Jayda Patiño MD Primary Care Provide r Reason for Visit * Reason Comments Med Refill Encounter Details Date Type Department Care Team (Late st Contact Info) Description 08/30/2022 Refill [facility] MEDICINE 230 [place] [address] Jayda Patiño MD [address] [place] [address] Chronic right shoulder pain Social History Tobacco [...] Description 01/23/2025 2:45 PM EDT Office Visit [facility] MEDICINE [address] [place], [place] [phone] Jayda Patiño MD [address] [place] [address] 03/29/2025 1:00 PM EST Office Visit [facility] OPTOMETRY [address] [place] [address] Shama Barlow, OD 230 [place] [address] documented as of this encounter Visit Diagnoses Diagnosis Chronic right shoulder pain Pain in joint, shoulder region documented in this encounter Care Teams Starting Gate Driver Relationship Specialty Start Date End Date Jayda Patiño MD [address] [place] [address] PCP - General Family Medicine 04/05/19 documented as of this encounter
--- OUTSIDE RECORDS SUMMARY | 2025-01-01 15:12 | XMS_ITS | Encounter Summary ---
Author Organization [employer] Address [address] [place] [address] 7 [place] [address] Care Team Providers Care Agricultural Specialist Name Role Phone Jayda Patiño MD Primary Care Provide r Reason for Visit * Reason Comments Med Refill Encounter Details Date Type Department Care Team (Late st Contact Info) Description 12/31/2022 Refill [facility] MEDICINE 230 [place] [address] Adela Denney FNP Health care maintenance Social History Tobacco Use [...] Description 01/23/2025 2:45 PM EDT Office Visit [facility] MEDICINE 230 [place], [place] [phone] Jayda Patiño MD 230 [place] [address] 03/29/2025 1:00 PM EST Office Visit [facility] OPTOMETRY [address] [place] [address] CainShama, OD 230 [place] [address] documented as of this encounter Visit Diagnoses Diagnosis Health care maintenance documented in this encounter Additional Health Concerns Assessment Noted Time PHQ-9 Depression Total Score: 14 023 1:24 PM EDT documented as of this encounter Care Teams Agricultural Specialist Relationship Specialty Start Date End Date Jayda Patiño MD 230 [place] [address] PCP - General Family Medicine 04/05/19 documented as of this encounter
--- OUTSIDE RECORDS SUMMARY | 2025-01-01 15:12 | XMS_ITS | Encounter Summary ---
Author Organization [employer] [facility] Address [address] [place] [address] 7t [place] [address] Care Team Providers Care Avionics Mechanic Name Role Phone Jayda Patiño MD Primary Care Provide r Reason for Visit * Reason Comments Med Refill Encounter Details Date Type Department Care Team (Late Contact Info) Description 09/25/2022 Refill [facility] MEDICINE [address] [place] [address] Jayda Patiño MD 230 [place] [address] Chronic right shoulder pain Social History Tobacco [...] Description 01/23/2025 2:45 PM EDT [facility] Visit [facility] [address] [place] [address] Jayda Patiño MD 230 [place], [place] [phone] 03/29/2025 1:00 PM EST Office Visit [facility] OPTOMETRY [address] [place], [place] [phone] Shama Barlow, OD 230 [place], [place] [phone] documented as of this encounter Visit Diagnoses Diagnosis Chronic right shoulder pain Pain in joint, shoulder region documented in this encounter Additional Health Concerns Assessment Noted Time PHQ-9 Depression Total Score: 14 023 1:24 PM EDT documented as of this encounter Care Teams Avionics Mechanic Relationship Specialty Start Date End Date Jayda Patiño MD 230 [place], [place] [phone] PCP - General Family Medicine 04/05/19 documented as of this encounter
--- OUTSIDE RECORDS SUMMARY | 2025-01-01 15:12 | XMS_ITS | Encounter Summary ---
Author Organization [employer] [facility] Address [address] [place] [address] 7t [place] [address] Care Team Providers Care Classification And Treatment Director Name Role Phone Jayda Patiño MD Primary Care Provide r Reason for Visit * Reason Comments Med Refill Encounter Details Date Type Department Care Team (Late Contact Info) Description 07/02/2022 Refill [facility] MEDICINE 230 [place], [place] [phone] Lissette White MD 230 [place] [address] Chronic rhinitis Social History Tobacco Use Types [...] 2:45 PM EDT Office Visit [facility] MEDICINE 230 [place] [address] Jayda Patiño MD 230 [place] [address] 03/29/2025 1:00 PM EST Office Visit [facility] OPTOMETRY [address] [place] [address] Shama Barlow, OD 230 [place] [address] documented as of this encounter Visit Diagnoses Diagnosis Chronic rhinitis documented in this encounter Care Teams Classification And Treatment Director Relationship Specialty Start Date End Date Jayda Patiño MD 230 [place] [address] PCP - General Family Medicine 04/05/19 documented as of this encounter
--- OUTSIDE RECORDS SUMMARY | 2025-01-01 15:12 | XMS_ITS | Encounter Summary ---
Author Organization [employer] Address 75 [facility] 7t [place] [address] Care Team Providers Care Drafter Geophysical Name Role Phone Jayda Patiño MD Primary Care Provide r Reason for Visit * Reason Comments Med Refill Encounter Details Date Type Department Care Team ([facility] st Contact Info) Description 08/22/2024 Refill [facility] MEDICINE 230 [place] [address] Jayda Patiño MD 230 [place] [address] Pain of left heel Social History Tobacco [...] Description 01/23/2025 2:45 PM EDT Office Visit [facility] MEDICINE 230 [place] [address] Jayda Patiño MD 230 [place] [address] 03/29/2025 1:00 PM EST Office Visit [facility] OPTOMETRY [address] [place] [address] Cain, Shama, OD 230 [place] [address] documented as of this encounter Visit Diagnoses Diagnosis Pain of left heel documented in this encounter Additional Health Concerns Assessment Noted Time PHQ-9 Depression Total Score: 0 07/13/19 25 1:37 PM EDT documented as of this encounter Care Teams Drafter Geophysical Relationship Specialty Start Date End Date Jayda Patiño MD [address] [place] [address] PCP - General Family Medicine 04/05/19 documented as of this encounter
--- OUTSIDE RECORDS SUMMARY | 2025-01-01 15:12 | XMS_ITS | Encounter Summary ---
Author Organization [employer] Address [address] [place] [address] 7t [place] [address] Care Team Providers Care River Pilot Name Role Phone Jayda Patiño MD Primary Care Provide r Reason for Visit * Reason Comments Med Refill Encounter Details Date Type Department Care Team ([facility] Contact Info) Description 07/02/2022 Refill [facility] 230 [place] [address] Lia Edwards, CYTOLOGY SUPERVISOR [address] [place] [address] Chronic right shoulder pain Social History Tobacco [...] Upcoming Encounters Date Type Department Care Team ([facility] Contact Info) Description 01/23/2025 2:45 PM EDT Office Visit [facility] MEDICINE 230 [place] [address] Jayda Patiño MD 230 [place] [address] 03/29/2025 1:00 PM EST Office Visit [facility] OPTOMETRY [address] [place] [address] Shama Barlow, OD 230 [place] [address] documented as of this encounter Visit Diagnoses Diagnosis Chronic right shoulder pain Pain in joint, shoulder region documented in this encounter Care Teams River Pilot Relationship Specialty Start Date End Date Jayda Patiño MD 230 [place] [address] PCP - General Family Medicine 04/05/19 documented as of this encounter
--- OUTSIDE RECORDS SUMMARY | 2025-01-01 15:12 | XMS_ITS | Encounter Summary ---
Author Organization [employer] Address [address] [facility] [address] 7t [place] [address] Care Team Providers Care Hospital Housekeeper Name Role Phone Jayda Patiño MD Primary Care Provide r Encounter Details Date Type Department Care Team (Late st Contact Info) Description 07/24/2024 Orders Only [facility] MED & PEDS [address] [place] [address] Provider, MD Jennie Social History Tobacco Use [...] t he electric, gas, oil or water [employer] threatened to shut off services in your [...] Description 01/23/2025 2:45 PM EDT Office Visit [facility] MEDICINE 230 [place] [address] Jayda Patiño MD 230 [place] [address] 03/29/2025 1:00 PM EST Office Visit [facility] OPTOMETRY [address] [place] [address] Cain, Shama, OD 230 [place] [address] documented as of this encounter Procedures Procedure [...] Noted Time PHQ-9 Depression Total Score: 0 03/20/20 25 1:37 PM EDT documented as of this encounter Care Teams Hospital Housekeeper Relationship Specialty Start Date End Date Jayda Patiño MD 230 [place] [address] PCP - General Family Medicine 04/05/19 documented as of this encounter
--- OUTSIDE RECORDS SUMMARY | 2025-01-01 15:12 | XMS_ITS | Encounter Summary ---
Author Organization [employer] [facility] Address [address] [place] [address] 7t [place] [address] Care Team Providers Care Tie Fastener Name Role Phone Jayda Patiño MD Primary Care Provide r Reason for Visit * Reason Comments Med Refill Encounter Details Date Type Department Care Team (Late Contact Info) Description 12/04/2022 Refill [facility] MEDICINE 230 [place] [address] Jayda Patiño MD 230 [place], [place] [phone] Gastro-esophageal reflux disease without esophagitis Social History [...] Description 01/23/2025 2:45 PM EDT Office Visit [facility] MEDICINE 230 [place] [address] Jayda Patiño MD 230 [place], [place] [phone] 03/29/2025 1:00 PM EST Office Visit [facility] OPTOMETRY [address] [place], [place] [phone] Shama Barlow, OD 230 [place] [address] documented as of this encounter Visit Diagnoses Diagnosis Gastro-esophageal reflux disease without esophagitis documented in this encounter Additional Health Concerns Assessment Noted Time PHQ-9 Depression Total Score: 14 023 1:24 PM EDT documented as of this encounter Care Teams Tie Fastener Relationship Specialty Start Date End Date Jayda Patiño MD 230 [place], [place] [phone] PCP - General Family Medicine 04/05/19 documented as of this encounter
--- OUTSIDE RECORDS SUMMARY | 2025-01-01 15:12 | XMS_ITS | Encounter Summary ---
Author Organization [employer] Address 75 [facility] 7t [place] [address] Care Team Providers Care Editor Managing Director Name Role Phone Jayda Patiño MD Primary Care Provide r Reason for Visit * Reason Onset Date Comments Med Refill 10/08/2024 Encounter Details Date Type Department Care Team (Late st Contact Info) Description 10/08/2024 Refill [facility] MED[facility]INE 230 [place] [address] Celena Farias, 230 [place] [address] Chronic rhinitis Social History Tobacco Use Types [...] Description 01/23/2025 2:45 PM EDT Office Visit [facility] 230 [place] [address] Jayda Patiño MD 230 [place] [address] 03/29/2025 1:00 PM EST Office Visit [facility] OPTOMETRY [address] [place] [address] Cain, Shama, OD 230 [place] [address] documented as of this encounter Visit Diagnoses Diagnosis Chronic rhinitis documented in this encounter Additional Health Concerns Assessment Noted Time PHQ-9 Depression Total Score: 0 07/13/19 25 1:37 PM EDT documented as of this encounter Care Teams Editor Managing Director Relationship Specialty Start Date End Date Jyada Patiño MD [address] [place] [phone] PCP - General Family Medicine 04/05/19 documented as of this encounter
--- OUTSIDE RECORDS SUMMARY | 2025-01-01 15:12 | XMS_ITS | Encounter Summary ---
Author Organization [employer] Address 75 [facility] 7t [place] [address] Care Team Providers Care Material Preparation Worker Name Role Phone Jayda Patiño MD Primary Care Provide r Reason for Visit * Reason Comments Med Refill Encounter Details Date Type Department Care Team ([facility] st Contact Info) Description 04/29/2023 Refill [facility] MEDICINE 230 [place], [place] [phone] Name, MD Lorenzo 230 [place] [address] Hypertension, unspecified type Social History Tobacco Use [...] Description 01/23/2025 2:45 PM EDT Office Visit [facility] MEDICINE 230 [place] [address] Jayda Patiño MD 230 [place] [address] 03/29/2025 1:00 PM EST Office Visit [facility] OPTOMETRY [address] [place] [address] Cain, Shama, OD 230 [place] [address] documented as of this encounter Visit Diagnoses Diagnosis Hypertension, unspecified type documented in this encounter Additional Health Concerns Assessment Noted Time PHQ-9 Depression Total Score: 14 023 1:24 PM EDT documented as of this encounter Care Teams Material Preparation Worker Relationship Specialty Start Date End Date Jayda Patiño MD 230 [place] [address] PCP - General Family Medicine 04/05/19 documented as of this encounter
--- OUTSIDE RECORDS SUMMARY | 2025-01-01 15:12 | XMS_ITS | Encounter Summary ---
Author Organization [employer] Address 75 [facility] 7t [place] [address] Care Team Providers Care Tanker Service Attendant Name Role Phone Jayda Patiño MD Primary Care Provide r Reason for Visit * Reason Comments Med Refill Encounter Details Date Type Department Care Team ([facility] st Contact Info) Description 11/12/2024 Refill [facility] MEDICINE 230 [place] [address] Jayda Patiño MD 230 [place] [address] Polyarthralgia Social History Tobacco Use Types Packs/Day [...] 01/23/2025 2:45 PM EDT Office Visit [facility] MEDICINE 230 [place] [address] Jayda Patiño MD 230 [place] [address] 03/29/2025 1:00 PM EST Office Visit [facility] OPTOMETRY [address] [place] [address] Cain, Shama, OD 230 [place] [address] documented as of this encounter Visit Diagnoses Diagnosis Polyarthralgia Pain in joint, multiple sites documented in this encounter Additional Health Concerns Assessment Noted Time PHQ-9 Depression Total Score: 0 07/13/19 25 1:37 PM EDT documented as of this encounter Care Teams Tanker Service Attendant Relationship Specialty Start Date End Date Jayda Patiño MD [address] [place] [id number] PCP - General Family Medicine 04/05/19 documented as of this encounter
--- OUTSIDE RECORDS SUMMARY | 2025-01-01 15:12 | XMS_ITS | Encounter Summary ---
Author Organization [employer] Address [address] [place] [address] 7t [place] [address] Care Team Providers Care Bleach Supervisor Name Role Phone Jayda Patiño MD Primary Care Provide r Reason for Visit * Reason Comments Med Refill Encounter Details Date Type Department Care Team (Late st Contact Info) Description 10/22/2022 Refill [facility] 230 [place] [address] [facility] 230 [place] [address] Hypertension, unspecified type Social History Tobacco Use [...] [facility] 230 [place] [address] Jayda Patiño MD 230 [place], [place] [phone] 03/29/2025 1:00 PM EST Office Visit [facility] OPTOMETRY [address] [place] [address] Shama Barlow, EMI 230 [place] [address] documented as of this encounter Visit Diagnoses Diagnosis Hypertension, unspecified type documented in this encounter Additional Health Concerns Assessment Noted Time PHQ-9 Depression Total Score: 14 023 1:24 PM EDT documented as of this encounter Care Teams Bleach Supervisor Relationship Specialty Start Date End Date Jayda Patiño MD 230 [place], [place] [phone] PCP - General Family Medicine 04/05/19 documented as of this encounter
--- OUTSIDE RECORDS SUMMARY | 2025-01-01 15:12 | XMS_ITS | Encounter Summary ---
Author Organization [employer] Address [address] [place] [address] 7t [place] [address] Care Team Providers Care Sugar Cane Farm Manager Name Role Phone Jayda Patiño MD Primary Care Provide r Reason for Visit * Reason Comments Med Refill Encounter Details Date Type Department Care Team ([facility] Contact Info) Description 05/27/2022 Refill [facility] MEDICINE 230 [place] [address] Lia Edwards, GRETCHEN [address] [place] [address] Chronic right shoulder pain Social History Tobacco [...] Upcoming Encounters Date Type Department Care Team ([facility] Contact Info) Description 01/23/2025 2:45 PM EDT Office Visit [facility] MEDICINE 230 [place] [address] Jayda Patiño MD 230 [place] [address] 03/29/2025 1:00 PM EST Office Visit [facility] OPTOMETRY [address] [place] [address] Shama Barlow, OD 230 [place] [address] documented as of this encounter Visit Diagnoses Diagnosis Chronic right shoulder pain Pain in joint, shoulder region documented in this encounter Care Teams Sugar Cane Farm Manager Relationship Specialty Start Date End Date Jayda Patiño MD 230 [place] [address] PCP - General Family Medicine 04/05/19 documented as of this encounter
--- OUTSIDE RECORDS SUMMARY | 2025-01-01 15:12 | XMS_ITS | Encounter Summary ---
Author Organization [employer] Address [address] [facility] 7t [place] [address] Care Team Providers Care Faculty Administrator Name Role Phone Jayda Patiño MD Primary Care Provide r Reason for Visit * Reason Comments Med Refill Encounter Details Date Type Department Care Team ([facility] st Contact Info) Description 10/12/2024 Refill [facility] MEDICINE 230 [place] [address] Celena Farias DO 230 [place] [address] Polyarthralgia Social History Tobacco Use Types Packs/Day [...] 01/23/2025 2:45 PM EDT Office Visit [facility] MEDICINE [address] [place] [address] Jayda Patiño MD 230 [place] [address] 03/29/2025 1:00 PM EST Office Visit [facility] OPTOMETRY [address] [place] [address] Cain, Shama, OD 230 [place] [address] documented as of this encounter Visit Diagnoses Diagnosis Polyarthralgia Pain in joint, multiple sites documented in this encounter Additional Health Concerns Assessment Noted Time PHQ-9 Depression Total Score: 0 07/13/19 25 1:37 PM EDT documented as of this encounter Care Teams Faculty Administrator Relationship Specialty Start Date End Date Jayda Patiño MD [address] [place] [phone] PCP - General Family Medicine 04/05/19 documented as of this encounter
--- OUTSIDE RECORDS SUMMARY | 2025-01-01 15:12 | XMS_ITS | Encounter Summary ---
Author Organization [employer] Address 75 [facility] 7t [place] [address] Care Team Providers Care Assessment Nurse Practitioner Name Role Phone Jayda Patiño MD Primary Care Provide r Reason for Visit * Reason Comments Med Refill Encounter Details Date Type Department Care Team ([facility] st Contact Info) Description 09/06/2022 Refill [facility] MEDICINE 230 [place] [address] Jayda Patiño MD 230 [place] [address] Chronic right shoulder pain Social History Tobacco [...] PM EDT documented as of this encounter Functional Status * Over the past 2 weeks, how often have you been bothered by any of the following problems? Question Answer Date of Assessment Author Patient Health Questionnaire -2 Score 2 09/06/2022 1:24 PM Robb Dawn MA * If you checked off any problems on this questionnaire so far, Question Answer Date of Assessment Author How difficult have these problems made it for you to do your work, take care of things at home, or get along with other people? Extremely difficult 09/06/2022 1:24 PM KECIAT Robb Miller MA * Over the past 2 weeks, how often have you been bothered by any of the following problems? Question Answer Date of Assessment Author Little interest or pleasure in doing things Several days 09/06/2022 1:24 PM Martha Dawn MA Feeling down, depressed, or hopeless Several days 09/06/2022 1:24 PM KECIAT Robb Miller [place] Trouble falling or staying asleep, or sleeping too much Nearly every day 09/06/2022 1:24 PM KECIAT Robb Miller [place] Feeling tired or having little energy Nearly every day 09/06/2022 1:24 PM Robb Dawn MA Poor appetite or overeating Nearly every day 09/06/2022 1:24 PM Robb Dawn MA Feeling bad about yourself - or that you are a failure or have let yourself or your family down Several days 09/06/2022 1:24 PM Robb Dawn MA Trouble concentrating on things, such as reading the newspaper or watching television Several days 09/06/2022 1:24 PM Robb Dawn MA Moving or speaking so slowly that other people could have noticed? Or the opposite - being so fidgety or restless that you have been moving around a lot more than usual. Several days 09/06/2022 1:24 PM Robb Dawn MA Thoughts that you would be better off or hurting yourself in some way Not at all 09/06/2022 1:24 PM Robb Dawn MA Patient Health Questionnaire-9 Score 14 09/06/2022 1:24 PM Robb Dawn MA documented as of this encounter Plan of Treatment Upcoming Encounters Date Type Department Care Team (Late st Contact Info) Description 01/23/2025 2:45 PM EDT Office Visit [facility] MEDICINE 230 [place] [address] Jayda Patiño MD 230 [place] [address] 03/29/2025 1:00 PM EST Office Visit [facility] OPTOMETRY [address] [place], [place] [phone] Shama Barlow, OD 230 [place] [address] documented as of this encounter Visit Diagnoses Diagnosis Chronic right shoulder pain Pain in joint, shoulder region documented in this encounter Additional Health Concerns Assessment Noted Time PHQ-9 Depression Total Score: 14 023 1:24 PM EDT documented as of this encounter Care Teams Assessment Nurse Practitioner Relationship Specialty Start Date End Date Jayda Patiño MD [address] [place] [address] PCP - General Family Medicine 04/05/19 documented as of this encounter
--- OUTSIDE RECORDS SUMMARY | 2025-01-01 15:12 | XMS_ITS | Encounter Summary ---
Author Organization [facility] Address [address] [place] [address] 7t [place] [address] Care Team Providers Care Cable Worker Helper Name Role Phone Jayda Patiño MD Primary Care Provide r Reason for Visit * Reason Comments Med Refill Encounter Details Date Type Department Care Team (Late Contact Info) Description 06/09/2022 Refill [facility] MEDICINE 230 [place], [place] [phone] Lissette White MD 230 [place] [address] Chronic rhinitis Social History Tobacco Use Types [...] Description 01/23/2025 2:45 PM EDT Office Visit [facility] MEDICINE [address] [place] [address] Jayda Patiño MD 230 [place] [address] 03/29/2025 1:00 PM EST Office Visit [facility] OPTOMETRY [address] [place], [place] [phone] Shama Barlow, OD 230 [place] [address] documented as of this encounter Visit Diagnoses Diagnosis Chronic rhinitis documented in this encounter Care Teams Cable Worker Helper Relationship Specialty Start Date End Date Jayda Patiño MD 230 [place] [address] PCP - General Family Medicine 04/05/19 documented as of this encounter
--- OUTSIDE RECORDS SUMMARY | 2025-01-01 15:12 | XMS_ITS | Encounter Summary ---
Author Organization [employer] Address 75 [facility] 7t [place] [address] Care Team Providers Care Editorial Intern Name Role Phone Jayda Patiño MD Primary Care Provide r Reason for Visit * Reason Comments Med Refill Encounter Details Date Type Department Care Team ([facility] st Contact Info) Description 09/09/2024 Refill [facility] MEDICINE 230 [place] [address] Jayda Patiño MD 230 [place] [address] Chronic bilateral low back pain without sciatica Social History Tobacco Use Types Packs/Day Years [...] Description 01/23/2025 2:45 PM EDT Office Visit [facility] MEDICINE [address] [place] [address] Jayda Patiño MD 230 [place] [address] 03/29/2025 1:00 PM EST Office Visit [facility] OPTOMETRY [address] [place] [address] Cain, Shama, OD 230 [place] [address] documented as of this encounter Visit Diagnoses Diagnosis Chronic bilateral low back pain without sciatica documented in this encounter Additional Health Concerns Assessment Noted Time PHQ-9 Depression Total Score: 0 07/13/19 25 1:37 PM EDT documented as of this encounter Care Teams Editorial Intern Relationship Specialty Start Date End Date Jayda Patiño MD 230 [place] [address] PCP - General Family Medicine 04/05/19 documented as of this encounter
--- OUTSIDE RECORDS SUMMARY | 2025-01-01 15:12 | XMS_ITS | Encounter Summary ---
Author Organization [employer] Address [address] [facility] [address] 7t [place] [address] Care Team Providers Care Shoe Clerk Name Role Phone Jayda Patiño MD Primary Care Provide r Reason for Visit * Reason Comments Med Refill Encounter Details Date Type Department Care Team ([facility] st Contact Info) Description 10/02/2024 Refill [facility] MED & PEDS [address] [place] [address] Jayda Patiño MD 230 [place] [address] Chronic rhinitis Social History Tobacco Use Types [...] 2:45 PM EDT Office Visit [facility] MEDICINE 230 [place] [address] Jayda Patiño MD 230 [place] [address] 03/29/2025 1:00 PM EST Office Visit [facility] OPTOMETRY [address] [place] [address] Cain, Shama, OD 230 [place] [address] documented as of this encounter Visit Diagnoses Diagnosis Chronic rhinitis documented in this encounter Additional Health Concerns Assessment Noted Time PHQ-9 Depression Total Score: 0 07/13/19 25 1:37 PM EDT documented as of this encounter Care Teams Shoe Clerk Relationship Specialty Start Date End Date Jayda Patiño MD [address] [place] [address] PCP - General Family Medicine 04/05/19 documented as of this encounter
== END 2025-01-01 13:41 | disposition home or self-care (01) ==
LOC: HO.HGI 12:49
PROVIDERS: PCP Internal Medicine; Visit Provider Nurse Practitioner
DX: K31.84 Gastroparesis (principal); K21.9 Gastro-esophageal reflux disease without esophagitis; K59.04 Chronic idiopathic constipation
CPT/HCPCS: 99213

== ENCOUNTER → 2025-01-01 12:49 | Outpatient (BNVA) | payer MEDICAID, SELFPAY | PROVIDERS: PCP Internal Medicine; Visit Provider Nurse Practitioner | DX: K21.9 Gastro-esophageal reflux disease without esophagitis (principal); K31.84 Gastroparesis; K59.04 Chronic idiopathic constipation | CPT/HCPCS: 99212 ==

== ENCOUNTER 2025-01-24 11:31 | Outpatient (REF) | payer MEDICAID, SELFPAY ==
--- OUTSIDE RECORDS SUMMARY | 2025-01-23 14:45 | XMS_ITS | Encounter Summary ---
Author Organization [employer] Address [address] [place] [address] 7 [place] [address] Care Team Providers Care Client Finance Analyst Name Role Phone Jayda Patiño MD Primary Care Provide r Reason for Referral * Consultation (Routine) - Authorized Specialty Diagnoses / Procedures Referred By Fran t Referred To Contact Sleep Medicine Diagnoses ROSARIO (obstructive sleep apnea) Jayda Patiño MD [address] [place] [address] Phone: tel: fax: [facility] Referral ID Status Reason Start Date Expiration Date Visits Requested Visits Authorized [id number] Authorized Specialty Services Required 01/23/2025 01/23/2026 6 6 * Hospital - Outpatient (Routine) - Authorized Specialty Diagnoses / Procedures Referred By Conttonie t Referred To Contact Diagnoses ROSARIO (obstructive sleep apnea) Procedures Polysomnography Jayda Patiño MD [address] [place] [address] Phone: tel: fax: [facility] [address] [place] [address] Phone: tel: fax: Referral ID Status Reason Start Date Expiration Date V isits Requested Visits Authorized [id number] Authorized 01/23/2025 01/23/2026 1 1 Encounter Details Date Type Department Care Team (Late st Contact Info) Description 01/23/2025 2:45 PM EDT Telemedicine [facility] [address] [place] [address] Jayda Patiño MD [address] [place] [address] Class 3 severe obesity due to excess calories with serious comorbidity and body mass index (BMI) of 40.0 to 44.9 in adult (HCC) (Primary Dx); Chronic fatigue; ROSARIO (obstructive sleep apnea); Dietary counseling; Exercise counseling Social History Tobacco Use Types Packs/Day Years Used Date Smoking Tobacco: Never Passive Smoke Exposure: Never Smokeless Tobacco: Never Alcohol Use Standard Drinks/Week Comments Never 0 (1 standard drink = 0.6 oz pur e alcohol) Depression Answer Date Recorded Patient Health Questionnaire-9 Score 5 01/23/2025 Patient Health Questionnaire-9 Score 5 01/23/2025 Last PHQ-9: Questionnaire Data Not on file 1 Housing Stability Answer Date Recorded What is [...] Date Recorded Patient Health Questionnaire-2 Score 2 01/23/2025 Internet Access Answer Date Recorded Internet Access [...] Answer Date of Assessment Author Patient Health Questionnaire-2 Score 2 04/2024 2:37 PM EDT Ella Goddard [place] * Little interest or pleasure in doing things Answer Date of Assessment Author Several days 01/23/2025 2:37 PM EDT Trell Goddard ra, [place] * Feeling down, depressed, or hopeless Answer Date of Assessment Author Several days 01/23/2025 2:37 PM EDT Trell Goddard ra, [place] * Trouble falling or staying asleep, or sleeping too much Answer Date of Assessment Author Several days 01/23/2025 2:37 PM EDT Trell Goddard ra, [place] * Feeling tired or having little energy Answer Date of Assessment Author Several days 01/23/2025 2:37 PM EDT Trell Goddard ra, [place] * Poor appetite or overeating Answer Date of Assessment Author Not at all 01/23/2025 2:37 PM EDT Trell Goddard ra, [place] * Feeling bad about yourself - or that you are a failure or have let yourself or your family down Answer Date of Assessment Author Not at all 01/23/2025 2:37 PM EDT Trell Goddard ra, [place] * Trouble concentrating on things, such as reading the newspaper or watching television Answer Date of Assessment Author Several days 01/23/2025 2:37 PM EDT Trell Goddard ra, [place] * Moving or speaking so slowly that other people could have noticed? Or the opposite - being so fidgety or restless that you have been moving around a lot more than usual. Answer Date of Assessment Author Not at all 01/23/2025 2:37 PM EDT Trell Goddard ra, [place] * Thoughts that you would be better off or hurting yourself in some way Answer Date of Assessment Author Not at all 01/23/2025 2:37 PM EDT Trell Goddard ra, [place] * Patient Health Questionnaire-9 Score Answer Date of Assessment Author 5 01/23/2025 2:37 PM EDT Trell Goddard ra, [place] * Over the last 2 weeks, how often have you been bothered by any of the following problems? Question Answer Date of Assessment Author Feeling nervous, anxious, or on edge 1 04/2024 2:38 PM EDT Ella Goddard MA Not being able to stop or co ntrol worrying 1 01/23/2025 2:38 PM EDT Ella Goddard MA Worrying too much about diff erent things 0 01/23/2025 2:38 PM EDT Ella Goddard MA Trouble relaxing 1 01/23/2025 2:38 PM EDT Ella Cortez MA Being so restless that it is hard to sit still 0 01/23/2025 2:38 PM EDT Ella Goddard MA Becoming easily annoyed or irritable 1 04/2024 2:38 PM EDT Ella Goddard MA Feeling afraid as if somethi ng awful might happen 0 01/23/2025 2:38 PM EDT Ella Goddard MA MICKIE-7 Total Score 4 01/23/2025 2:38 PM EDT Ella Goddard MA documented as of this encounter Progress Notes * Jayda Mcelroy MD - 01/23/2025 2:45 PM EDT SUBJECTIVE: Milady Ruiz is a 59 y.o. year old female who presents for Follow up . Acute Concerns: Patient reports after she started on Zepbound 7.5 mg weekly she started having abdominal pain worsening constipation, abdominal distention and constant burping she was seen in the walk-in clinic and Zepbound was decreased to 5 mg weekly she tells me that the abdominal pain went away and she still has constipations and bloating sensation but is more tolerable than before, she has been losing weight approximately 30 pounds since Zepbound was started, she started with weight 252 and a BMI of 44 and now her weight is 224 (this weight was taken on January 09, 2025) and her BMI went down to 41 Patient tells me she feels tired and fatigued all the time on further questioning she does have OSAand did not tolerate the machine so she has not been using it Social History Social History Narrative Not on file Problem List[1] Family History[2] Review of Systems Constitutional: Positive for fatigue. Negative for activity change, appetite change, chills, diaphoresis, fever and unexpected weight change. HENT: Negative. Respiratory: Negative. Cardiovascular: Negative. Follow Up: No follow-ups on file. Medications Ordered Prior to Encounter[3] Problem List Items Addressed This Visit Class 3 severe obesity due to excess calories with serious comorbidity and body mass index (BMI) of40.0 to 44.9 in adult ([facility]) - Primary Extensive counseling about healthy diet and exercise done today Will continue with Zepbound 5 mg weekly Chronic fatigue Most likely secondary to untreated ROSARIO but I will order blood work to rule out other etiology patient will be contacted with results Relevant Orders CBC auto differential Comprehensive Metabolic Panel Hemoglobin A1c HIV-1/2 Antigen and Antibodies, Fourth Generation, with Reflexes Hepatitis C Antibody with Reflex to HCV, RNA, Quantitative, Real-Time PCR Lipid Panel, Standard Vitamin D, 25-Hydroxy, Total, Immunoassay TSH with Reflex to Free T4 ROSARIO (obstructive sleep apnea) I will repeat sleep studies in light that they are all studies and refer her to sleep medicine Relevant Orders Polysomnography Referral to Sleep Medicine Other Visit Diagnoses Dietary counseling Exercise counseling [1] Patient Active Problem List Diagnosis 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 Achilles tendinitis Allergic rhinitis Arthropathy of lumbar facet joint Central sleep apnea syndrome Obstructive sleep apnea syndrome Chronic pain of both shoulders Chronic constipation Constipation Folic acid deficiency Vitamin D deficiency Gastroesophageal reflux disease Essential hypertension Insomnia Migraine without aura, not refractory Obesity (BMI 30-39.9) Obesity Osteoarthritis of both knees Fibromyalgia Palpitations Recurrent major depression (CMS/HCC) Kidney stone Trochanteric bursitis of both hips Chronic left shoulder pain Daily headache Elevated blood pressure reading Chronic abdominal pain Chronic pain syndrome Pain of left heel Chronic bilateral low back pain without sciatica Vertigo Chronic left ear pain COVID-19 virus infection Polyarthralgia Class 3 severe obesity due to excess calories with serious comorbidity and body mass index (BMI) of40.0 to 44.9 in adult (HCC) Prediabetes Chronic fatigue ROSARIO (obstructive sleep apnea) [2] Family History Problem Relation Name Age of Onset Uterine cancer Mother Heart disease Mother Diabetes Mother Hypertension Mother Heart disease Father Hypertension Father Prostate cancer Father Diabetes Sister Uterine cancer Sister Pancreatic cancer Brother 37 Lymphoma Brother [3] Current Outpatient Medications on File Prior to Visit Medication Sig Dispense Refill allopurinol (Zyloprim) 100 MG tablet Take 100 mg by mouth Once per day. busPIRone (Buspar) 5 MG tablet YESSENIA 1 TABLETA DOS VECES AL NORI D3-1000 25 MCG (1000 UT) capsule TAKE 1 CAPSULE BY MOUTH EVERY DAY 90 capsule 1 doxepin (SINEquan) 10 MG capsule TAKE 1 CAPSULE BY MOUTH AT BEDTIME FOR SLEEP PARA DORMIR DULoxetine (Cymbalta) [address] capsule TAKE 1 CAPSULE BY MOUTH ONCE A DAY YESSENIA 1 CAPSULA AL NORI folic acid (Folvite) 1 MG tablet TOME 1 TABLETA POR VIA ORAL TODOS LOS BURRIS 90 tablet 1 hydroCHLOROthiazide (HYDRODiuril) 25 MG tablet Take 1 tablet (25 mg) by mouth Once per day. 30 tablet 11 lansoprazole (Prevacid) [address] capsule Take 30 mg by mouth Once per day. Linzess 290 MCG capsule Take 290 mcg by mouth Once per day. loratadine (Claritin) 10 MG tablet TAKE 1 TABLET BY MOUTH EVERY DAY NEEDED 90 tablet 1 magnesium oxide (Mag-Ox) 400 (240 Mg) MG tablet Take 400 mg by mouth 2 times daily. meclizine (Antivert) 25 MG tablet Take 1 tablet (25 mg) by mouth if needed in the morning, at noon,and at bedtime for dizziness. 30 tablet 0 meloxicam (Mobic) 15 MG tablet TOME 1 TABLETA POR VIA ORAL TODOS LOS BURRIS 30 tablet 0 metoclopramide (Reglan) 5 MG tablet Take 5 mg by mouth 3 times daily. pravastatin (Pravachol) 40 MG tablet TOME 1 TABLETA POR VIA ORAL TODOS LOS BURRIS 90 tablet 0 Senna-Time 8.6 MG tablet TAKE 2 TABLETS ORALLY 2 TIMES A DAY NEEDED FOR FOR CONSTIPATION SUMAtriptan (Imitrex) 25 MG tablet TAKE 1 TAB ORALLY AFTER MIGRAINE ONSET MAY REPEAT AFTER 2HRS IF HEADACHE RETURNS,MAX 200MG IN 24HRS 9 tablet 3 Tirzepatide-Weight Management (Zepbound) 5 MG/0.5ML solution auto-injector Inject 0.5 mL (5 mg) under the skin 1 (one) time per week. 2 mL 2 topiramate 50 MG tablet TOME 1 TABLETA POR VIA ORAL DOS VECES AL NORI 180 tablet 0 traMADol (Ultram) 50 MG tablet TAKE 1 TABLET ORALLY EVERY 8 HOURS NEEDED FOR PAIN No current facility-administered medications on file prior to visit. documented in this encounter Miscellaneous Notes * Assessment & Plan Note - Jayda Mcelroy MD - 01/23/2025 4:29 PM EDT Associated Problem(s): Chronic fatigue Most likely secondary to untreated ROSARIO but I will order blood work to rule out other etiology patient will be contacted with results * Assessment & Plan Note - Jayda Mcelroy MD - 01/23/2025 4:29 PM EDT Associated Problem(s): ROSARIO (obstructive sleep apnea) I will repeat sleep studies in light that they are all studies and refer her to sleep medicine * Assessment & Plan Note - Jayda Mcelroy MD - 01/23/2025 4:28 PM EDT Associated Problem(s): Class 3 severe obesity due to excess calories with serious comorbidity and body mass index (BMI) of 40.0 to 44.9 in adult (HCC) Extensive counseling about healthy diet and exercise done today Will continue with Zepbound 5 mg weekly documented in this encounter Plan of Treatment Upcoming Encounters Date Type Department Care Team (Late st Contact Info) Description 03/29/2025 1:00 PM EST Office Visit [facility] [address] [place], [place] [phone] Shama Barlow, OD [address] [place], [place] [phone] Scheduled Orders Name Type Priority Associated Diagnoses Orde r Schedule CBC auto differential Lab Routine Chronic fatigue Expected: 01/23/2025 (Approximate), Expires: 01/23/2026 Comprehensive Metabolic Panel Lab Routine Chronic fatigue Expected: 01/23/2025 (Approximate), Expires: 01/23/2026 Hemoglobin A1c Lab Routine Chronic fatigue Expected: 01/23/2025 (Approximate), Expires: 01/23/2026 HIV-1/2 Antigen and Antibodies, Fourth Generation, with Reflexes Lab Routine Chronic fatigue Expected: 01/23/2025 (Approximate), Expires: 01/23/2026 Hepatitis C Antibody with Reflex to HCV, RNA, Quantitative, Real-Time PCR Lab Routine Chronic fatigue Expected: 01/23/2025, Expires: 01/23/2026 Lipid Panel, Standard Lab Routine Chronic fatigue Expected: 01/23/2025 (Approximate), Expires: 01/23/2026 Vitamin D, 25-Hydroxy, Total, Immunoassay Lab Routine Chronic fatigue Expected: 01/23/2025 (Approximate), Expires: 01/23/2026 TSH with Reflex to Free T4 Lab Routine Chronic fatigue Expected: 01/23/2025 (Approximate), Expires: 01/23/2026 Polysomnography [facility] Center Routine ROSARIO (obstructive sleep apnea) Expected: 01/23/2025 (Approximate), Expires: 01/23/2026 Scheduled Referrals Name Type Priority Associated Diagnoses Orde r Schedule Referral to Sleep Medicine Outpatient Referral Routine ROSARIO (obstructive sleep apnea) Expected: 01/23/2025 (Approximate), Expires: 01/23/2026 documented as of this encounter Visit Diagnoses Diagnosis Class 3 severe obesity due to excess calories with serious comorbidity and body mass index (BMI) of 40.0 to 44.9 in adult (HCC)- Primary Chronic fatigue Other malaise and fatigue ROSARIO (obstructive sleep apnea) Obstructive sleep apnea (adult) (pediatric) Dietary counseling Dietary surveillance and counseling Exercise counseling documented in this encounter Additional Health Concerns Assessment Noted Time PHQ-9 Depression Total Score: 5 01/24/20 25 2:37 PM EDT documented as of this encounter Care Teams Client Finance Analyst Relationship Specialty Start Date End Date Jayda Patiño MD [address] [place] [id number] PCP - General Family Medicine 04/05/19 documented as of this encounter
[2025-01-24 13:22] LABS: MANUAL DIFF FLAG NO
--- OUTSIDE RECORDS SUMMARY | 2025-01-24 13:22 | XMS_ITS | Clinical Summary ---
Author Organization [id number] [facility] ity Address [address] [place] [address] Care Team Providers Care Company Marker Name Role Phone Jayda Patiño MD Primary [...] Last Done Comments Breast Cancer Screening 1966 Colorectal Cancer Screening: Colonoscopy 1966 Hepatitis B Vaccines (1 of 3 - 19+ 3-dose series) 1985 Cervical Cancer Screening: P ap Smear 1987 Pneumococcal Vaccine: 50+ Years (1 of 1 - PCV) 2016 Zoster Vaccines (1 of 2) 2016 Cholesterol Screening (Lipid Panel) 03/28/2022 HIV Screening 03/28/2022 Hepatitis C Screening 03/28/2022 Social Influencers of Health Screening 03/28/2022 DTaP,Tdap,and Td Vaccines (3 - Td or Tdap) 06/05/2022 06/05/2012, 05/18/2005 Depression Screening 04/25/2024 COVID-19 Vaccine (1 - 2023-2 5 season) 2024 Influenza Vaccine (#1) 2024 6, 02/27/2015 RSV Immunization Adult Patients (1 - 1-dose 75+ series) 2041 HIB Vaccines Aged Out No longer eligi [...] age to complete this topic Care Teams Company Marker Relationship Specialty Start Date End Date Jayda Patiño MD [address] [place] [phone] PCP - General 06/16/23
--- OUTSIDE RECORDS SUMMARY | 2025-01-24 13:22 | XMS_ITS | Encounter Summary ---
Author Organization [employer] Address [address] [facility] 7t [place] [address] Care Team Providers Care Auto Customize Painter Name Role Phone Jayda Patiño MD Primary Care Provide r Reason for Visit * Reason Comments Med Refill Encounter Details Date Type Department Care Team ([facility] st Contact Info) Description 01/14/2024 Refill [facility] [address] [place] [address] Jayda Patiño MD [address] [place] [address] Health care maintenance Social History Tobacco Use [...] Description 03/29/2025 1:00 PM EST Office Visit [facility] [address] [place], [place] [phone] Cain, Shama, OD [address] [place] [address] documented as of this encounter Visit Diagnoses Diagnosis Health care maintenance documented in this encounter Additional Health Concerns Assessment Noted Time PHQ-9 Depression Total Score: 14 024 10:05 AM EST documented as of this encounter Care Teams Auto Customize Painter Relationship Specialty Start Date End Date Jayda Patiño MD [address] [place], [place] [phone] PCP - General Family Medicine 04/05/19 documented as of this encounter
--- OUTSIDE RECORDS SUMMARY | 2025-01-24 13:22 | XMS_ITS | Encounter Summary ---
Author Organization [employer] Address [address] [facility] 7t [place] [address] Care Team Providers Care Patient Carrier Name Role Phone Jayda Patiño MD Primary Care Provide r Reason for Visit * Reason Comments Med Refill Encounter Details Date Type Department Care Team ([facility] st Contact Info) Description 02/20/2024 Refill [facility] [address] [place], [place] [phone] Celena Farias DO [address] [place] [address] Chronic rhinitis Social History Tobacco Use Types [...] is your housing situation today? I have luam ortiz 02/09/[address] you [...] Description 03/29/2025 1:00 PM EST Office Visit [facility] [address] [place] [address] Cain, Shama, OD [address] [place] [address] documented as of this encounter Visit Diagnoses Diagnosis Chronic rhinitis documented in this encounter Additional Health Concerns Assessment Noted Time PHQ-9 Depression Total Score: 14 024 10:05 AM EST documented as of this encounter Care Teams Patient Carrier Relationship Specialty Start Date End Date Jayda Patiño MD [address] [place] [address] PCP - General Family Medicine 04/05/19 documented as of this encounter
--- OUTSIDE RECORDS SUMMARY | 2025-01-24 13:22 | XMS_ITS | Encounter Summary ---
Author Organization [employer] Address [address] [facility] 7t [place] [address] Care Team Providers Care Elevator Mechanic Name Role Phone Jayda Patiño MD Primary Care Provide r Reason for Visit * Reason Comments Med Refill Encounter Details Date Type Department Care Team ([facility] st Contact Info) Description 12/31/2023 Refill [facility] [address] [place], [place] [phone] Marilee Whittaker MD [address] [place], [place] [phone] Chronic migraine without aura without status migrainosus, [...] Description 03/29/2025 1:00 PM EST Office Visit [facility] [address] [place], [place] [phone] Shama Barlow, OD [address] [place] [address] documented as of this encounter Visit Diagnoses Diagnosis Chronic migraine without aura without status migrainosus, not intractable documented in this encounter Additional Health Concerns Assessment Noted Time PHQ-9 Depression Total Score: 14 024 10:05 AM EST documented as of this encounter Care Teams Elevator Mechanic Relationship Specialty Start Date End Date Jayda Patiño MD [address] [place] [address] PCP - General Family Medicine 04/05/19 documented as of this encounter
--- OUTSIDE RECORDS SUMMARY | 2025-01-24 13:22 | XMS_ITS | Encounter Summary ---
Author Organization [employer] Address [address] [facility] [address]t [place] [address] Care Team Providers Care Director Of Testing Name Role Phone Jayda Patiño MD Primary Care Provide r Encounter Details Date Type Department Care Team ([facility] st Contact Info) Description 02/02/2023 Abstract [facility] [address] [place] [address] Jayda Patiño MD [address] [place] [address] Social History Tobacco Use Types Packs/Day Years [...] Description 03/29/2025 1:00 PM EST Office Visit [facility] [address] [place], [place] [phone] Cain, Shama, OD [address] [place] [address] documented as of this encounter Procedures Procedure Name Priority Date/Time Associated Diagnosis Comments COLONOSCOPY Routine 05/10/2013 documented in this encounter Results * Hm Colonoscopy (05/10/2013) Colonoscopy Normal Normal Narrative Donna Bal - 05/10/2013 Recommended 10 year follow up us Historical Provider HEALTH MAINTENANCE Final Result documented in this encounter Visit Diagnoses Not on filedocumented in this encounter Additional Health Concerns Assessment Noted Time PHQ-9 Depression Total Score: 14 023 1:24 PM EDT documented as of this encounter Care Teams Director Of Testing Relationship Specialty Start Date End Date Jayda Patiño MD [address] [place], [place] [phone] PCP - General Family Medicine 04/05/19 documented as of this encounter
--- OUTSIDE RECORDS SUMMARY | 2025-01-24 13:22 | XMS_ITS | Encounter Summary ---
Author Organization [employer] Address [address] [place] [address] [address] [place] [address] Care Team Providers Care Supervisor Coating Name Role Phone Jayda Patiño MD Primary Care Provide r Reason for Visit * Reason Comments Med Refill Encounter Details Date Type Department Care Team ([facility] st Contact Info) Description 02/24/2023 Refill [facility] [address] [place] [address] Jayda Patiño MD [address] [place] [address] Chronic migraine without aura without status migrainosus, [...] Description 03/29/2025 1:00 PM EST Office Visit [facility] [address] [place] [address] Shama Barlow, OD [address] [place] [address] documented as of this encounter Visit Diagnoses Diagnosis Chronic migraine without aura without status migrainosus, not intractable Vitamin D deficiency Chronic rhinitis Hyperlipidemia, unspecified hyperlipidemia type documented in this encounter Additional Health Concerns Assessment Noted Time PHQ-9 Depression Total Score: 14 023 1:24 PM EDT documented as of this encounter Care Teams Supervisor Coating Relationship Specialty Start Date End Date Jayda Patiño MD [address] [place] [address] PCP - General Family Medicine 04/05/19 documented as of this encounter
--- OUTSIDE RECORDS SUMMARY | 2025-01-24 13:22 | XMS_ITS | Encounter Summary ---
Author Organization [employer] Address [address] [facility] [address]t [place] [address] Care Team Providers Care Highway Inspector Name Role Phone Jayda Patiño MD Primary Care Provide r Reason for Visit * Reason Comments Med Refill Encounter Details Date Type Department Care Team ([facility] st Contact Info) Description 01/14/2024 Refill [facility] [address] [place], [place] [phone] Celena Farias DO [address] [place] [address] Chronic rhinitis Social History Tobacco Use Types [...] Description 03/29/2025 1:00 PM EST Office Visit [facility] [address] [place] [address] Cain, Shama, OD [address] [place] [address] documented as of this encounter Visit Diagnoses Diagnosis Chronic rhinitis documented in this encounter Additional Health Concerns Assessment Noted Time PHQ-9 Depression Total Score: 14 024 10:05 AM EST documented as of this encounter Care Teams Highway Inspector Relationship Specialty Start Date End Date Jayda Patiño MD [address] [place] [address] PCP - General Family Medicine 04/05/19 documented as of this encounter
--- OUTSIDE RECORDS SUMMARY | 2025-01-24 13:23 | XMS_ITS | Encounter Summary ---
Author Organization [employer] Address [address] [facility] [address] [place] [address] Care Team Providers Care Accounting Professor Name Role Phone Jayda Patiño MD Primary Care Provide r Reason for Visit * Reason Onset Date Comments Chart Prep 01/22/2025 Encounter Details Date Type Department Care Team ([facility] st Contact Info) Description 01/22/2025 Telephone [facility] [address] [place] [address] Jayda Patiño MD [address] [place] [address] Chart Prep Social History Tobacco Use Types Packs/Day Years [...] AM EDT documented as of this encounter Miscellaneous Notes * Telephone Encounter - Johanna Crenshaw MA - 01/22/2025 3:38 PM EDT Chart Prep Labs: not applicable Images: not applicable Referrals: not applicable Vaccines due: Covid, Flu, PCV20, Tdap, Hep B, and Zoster Screenings: mammogram and HIV Screening Overdue care gaps: PHQ-9, MICKIE-7, Oral health screening, and Disability screen documented in this encounter Plan of Treatment Upcoming Encounters Date Type Department Care Team (Late st Contact Info) Description 03/29/2025 1:00 PM EST Office Visit [facility] [address] [place] [address] Cain, Shama, OD [address] [place] [address] documented as of this encounter Visit Diagnoses Not on filedocumented in this encounter Additional Health Concerns Assessment Noted Time PHQ-9 Depression Total Score: 0 07/13/19 25 1:37 PM EDT documented as of this encounter Care Teams Accounting Professor Relationship Specialty Start Date End Date Jayda Patiño MD [address] [place] [address] PCP - General Family Medicine 04/05/19 documented as of this encounter
--- OUTSIDE RECORDS SUMMARY | 2025-01-24 13:23 | XMS_ITS | Encounter Summary ---
Author Organization [employer] Address [address] [place] [address] 7[address] [place] [address] Care Team Providers Care Publicity Writer Name Role Phone Jayda aPtiño MD Primary Care Provide r Reason for Visit * Reason Comments Med Refill Encounter Details Date Type Department Care Team ([facility] Contact Info) Description 07/02/2022 Refill [facility] [address] [place] [address] Lia Edwards FNP [address] [place] [address] Chronic right shoulder pain Social History Tobacco [...] Department Care Team (Late Contact Info) Description 03/29/2025 1:00 PM EST Office Visit [facility] [address] [place] [address] Shama Barlow, OD [address] [place] [address] documented as of this encounter Visit Diagnoses Diagnosis Chronic right shoulder pain Pain in joint, shoulder region documented in this encounter Care Teams Publicity Writer Relationship Specialty Start Date End Date Jayda Patiño MD [address] [place] [address] PCP - General Family Medicine 04/05/19 documented as of this encounter
--- OUTSIDE RECORDS SUMMARY | 2025-01-24 13:23 | XMS_ITS | Encounter Summary ---
Author Organization [employer] Address [address] [facility] [address] [place] [address] Care Team Providers Care Video Game Maker Name Role Phone Jayda Patiño MD Primary Care Provide r Reason for Visit * Reason Onset Date Comments Med Refill 10/08/2024 Encounter Details Date Type Department Care Team (Late st Contact Info) Description 10/08/2024 Refill [facility] [address] [place] [address] Celena Farias, [address] [place] [address] Chronic rhinitis Social History Tobacco Use Types [...] Description 03/29/2025 1:00 PM EST Office Visit [facility] [address] [place] [address] Cain, Shama, OD [address] [place] [address] documented as of this encounter Visit Diagnoses Diagnosis Chronic rhinitis documented in this encounter Additional Health Concerns Assessment Noted Time PHQ-9 Depression Total Score: 0 07/13/19 25 1:37 PM EDT documented as of this encounter Care Teams Video Game Maker Relationship Specialty Start Date End Date Jayda Patiño MD [address] [place] [address] PCP - General Family Medicine 04/05/19 documented as of this encounter
--- OUTSIDE RECORDS SUMMARY | 2025-01-24 13:23 | XMS_ITS | Encounter Summary ---
Author Organization [employer] Address [address] [place] [address] [address] [place] [address] Care Team Providers Care Hospice Volunteer Coordinator Name Role Phone Jayda Patiño MD Primary Care Provide r Reason for Visit * Reason Comments Med Refill Encounter Details Date Type Department Care Team ([facility] Contact Info) Description 07/30/2022 Refill [facility] [address] [place] [address] Lia Edwards FNP [address] [place] [address] Chronic right shoulder pain Social History Tobacco [...] 03/29/2025 1:00 PM EST Office Visit [facility] [address] [place] [address] Shama Barlow, OD [address] [place] [address] documented as of this encounter Visit Diagnoses Diagnosis Chronic right shoulder pain Pain in joint, shoulder region documented in this encounter Care Teams Hospice Volunteer Coordinator Relationship Specialty Start Date End Date Jayda Patiño MD [address] [place] [address] PCP - General Family Medicine 04/05/19 documented as of this encounter
--- OUTSIDE RECORDS SUMMARY | 2025-01-24 13:23 | XMS_ITS | Encounter Summary ---
Author Organization [employer] Address [address] [facility] [address] [place] [address] Care Team Providers Care Chair Post Machine Operator Name Role Phone Jayda Patiño MD Primary Care Provide r Reason for Visit * Reason Comments Med Refill Encounter Details Date Type Department Care Team ([facility] st Contact Info) Description 01/13/2025 Refill [facility] [address] [place] [address] Celena Farias DO [address] [place] [address] Chronic rhinitis Social History Tobacco Use Types [...] 03/29/2025 1:00 PM EST Office Visit [facility] [address] [place] [address] Cain, Shama, OD [address] [place] [address] documented as of this encounter Visit Diagnoses Diagnosis Chronic rhinitis documented in this encounter Additional Health Concerns Assessment Noted Time PHQ-9 Depression Total Score: 0 07/13/19 25 1:37 PM EDT documented as of this encounter Care Teams Chair Post Machine Operator Relationship Specialty Start Date End Date Jayda Patiño MD [address] [place] [address] PCP - General Family Medicine 04/05/19 documented as of this encounter
--- OUTSIDE RECORDS SUMMARY | 2025-01-24 13:23 | XMS_ITS | Encounter Summary ---
Author Organization [employer] Address [address] [address] [place] [address] Care Team Providers Care Steam Shovel Oiler Name Role Phone Jayda Patiño MD Primary Care Provide r Encounter Details Date Type Department Care Team (Late st Contact Info) Description 07/24/2024 Orders Only [facility] [address] [place] [address] Provider, MD Jennie Social History Tobacco Use [...] Description 03/29/2025 1:00 PM EST Office Visit [facility] [address] [place] [place], [place] [id number] Cain, Shama, OD [address] [place] [address] documented as of this encounter Procedures Procedure Name Priority Date/Time Associated Diagnosis Comments HM COLONOSCOPY Routine 08/18/2023 10:07 AM EDT documented [...] documented as of this encounter Care Teams Steam Shovel Oiler Relationship Specialty Start Date End Date Jayda Patiño MD [address] [place] [address] PCP - General Family Medicine 04/05/19 documented as of this encounter
--- OUTSIDE RECORDS SUMMARY | 2025-01-24 13:23 | XMS_ITS | Encounter Summary ---
Author Organization [employer] Address [address] [facility] [address] [place] [address] Care Team Providers Care Sole Rounder Name Role Phone Jayda Patiño MD Primary Care Provide r Reason for Visit * Reason Comments Med Refill Encounter Details Date Type Department Care Team ([facility] st Contact Info) Description 01/13/2025 Refill [facility] [address] [place] [address] Jayda Patiño MD [address] [place] [address] Chronic migraine without aura without status migrainosus, not intractable; Hyperlipidemia, unspecified hyperlipidemia type; Polyarthralgia; Health care maintenance Social History Tobacco Use [...] housing situation today? I have luma diana 07/12/[address] you li [...] Description 03/29/2025 1:00 PM EST Office Visit [facility] [address] [place] [address] Shama Barlow, OD [address] [place] [address] documented as of this encounter Visit Diagnoses Diagnosis Chronic migraine without aura without status migrainosus, not intractable Hyperlipidemia, unspecified hyperlipidemia type Polyarthralgia Pain in joint, multiple sites Health care maintenance documented in this encounter Additional Health Concerns Assessment Noted Time PHQ-9 Depression Total Score: 0 07/13/19 25 1:37 PM EDT documented as of this encounter Care Teams Sole Rounder Relationship Specialty Start Date End Date Jayda Patiño MD [address] [place] [address] PCP - General Family Medicine 04/05/19 documented as of this encounter
--- OUTSIDE RECORDS SUMMARY | 2025-01-24 13:23 | XMS_ITS | Clinical Summary ---
Author Organization [employer] Address [address] [place] [address] 7[address] [place] [address] Care Team Providers Care Slicing Machine Tender Name Role Phone Jayda Patiño [...] NEEDED FOR FOR CONSTIPATION 07/26/2 024 Active hydroCHLOROthiaz willie (HYDRODiuril) 25 MG tabletIndication s:Essential hypertension Take 1 tablet (25 mg) by mouth Once per day. 30 tablet 11 025 2025 Active loratadine (Claritin) 10 MG tabletIndication s:Chronic rhinitis TAKE 1 TABLET BY MOUTH EVERY DAY NEEDED 90 tablet 1 025 Active folic acid (Folvite) 1 MG tabletIndication s:Health care maintenance TOME 1 TABLETA POR VIA ORAL TODOS [place]UR[place] 90 tablet 1 025 Active meclizine (Antivert) 25 MG tabletIndication s:Vertigo Take 1 tablet (25 mg) by mouth if needed in the morning, at noon, and at bedtime for dizziness. 30 tablet 025 Active D3-1000 25 MCG (1000 UT) capsuleIndicatio ns:Vitamin D deficiency TAKE 1 CAPSULE BY MOUTH EVERY DAY 90 capsule 1 025 Active pravastatin (Pravachol) 40 MG tabletIndication s:Hyperlipidemia , unspecified hyperlipidemia type TOME 1 TABLETA POR VIA ORAL TODOS [place] 90 tablet 025 Active topiramate 50 MG tabletIndication s:Chronic migraine without aura without status migrainosus, not intractable TOME 1 TABLETA POR VIA ORAL DOS VECES AL NORI 180 tablet 025 Active meloxicam (Mobic) 15 MG tabletIndication s:Polyarthralgia TOME 1 TABLETA POR VIA ORAL TODOS [place] 30 tablet 025 Active SUMAtriptan (Imitrex) 25 MG tabletIndication s:Migraine without aura, not refractory TAKE 1 TAB ORALLY AFTER MIGRAINE ONSET MAY REPEAT AFTER 2HRS IF HEADACHE RETURNS,MAX 200MG IN 24HRS 9 tablet 3 025 Active Tirzepatide-Weig ht Management (Zepbound) 5 MG/0.5ML solution auto-injector Inject 0.5 mL (5 mg) under the skin 1 (one) time per week. 2 mL 2 025 2024 Active phentermine 15 MG capsuleIndicatio ns:Class 3 severe obesity due to excess calories with serious comorbidity and body mass index (BMI) of 40.0 to 44.9 in adult (HCC) Take 1 capsule (15 mg) by mouth before breakfast. 30 capsule 025 2024 Discontinued(S willie effects) SUMAtriptan (Imitrex) 25 MG tabletIndication s:Migraine without aura, not refractory TAKE 1 TAB ORALLY AFTER MIGRAINE ONSET MAY REPEAT AFTER 2HRS IF HEADACHE RETURNS,MAX 200MG IN 24HRS 9 tablet 3 025 2024 Discontinued meloxicam (Mobic) 15 MG tabletIndication s:Polyarthralgia TOME 1 TABLETA POR VIA ORAL TODOS [place] 30 tablet 025 2024 Discontinued Tirzepatide-Weig ht Management (Zepbound) 7.5 MG/0.5ML solution auto-injectorInd ications:Class 3 severe obesity due to excess calories with serious comorbidity and body mass index (BMI) of 40.0 to 44.9 in adult ([facility]) Inject 0.5 mL (7.5 mg) under the skin 1 (one) time per week. INJECT ONE PEN (=7.5 MG) SUBCUTANEOUSLY ONCE A WEEK 2 mL 025 2024 Discontinued(S willie effects) Active Problems Problem Noted Date Diagnosed Date Chronic fatigue 01/23/2025 Assessment & Plan (01/23/2025 4:29 PM EDT): Most likely secondary to untreated ROSARIO but I will order blood work to rule out other etiology patient will be contacted with results ROSARIO (obstructive sleep apnea) 01/23/2025 Assessment & Plan (01/23/2025 4:29 PM EDT): I will repeat sleep studies in light that they are all studies and refer her to sleep medicine Class 3 severe obesity due t o excess calories with serious comorbidity and body mass index (BMI) of 40.0 to 44.9 in adult 07/12/2024 Assessment & Plan (01/23/2025 4:28 PM EDT): Extensive counseling about healthy diet and exercise done today Will continue with Zepbound 5 mg weekly Assessment & Plan (09/05/2024 2:45 PM EDT): [...] Encounters Date Type Department Care Team Description 01/23/2025 2:45 PM EDT Telemedicine [facility] [address] [place] [phone] Jayda Patiño MD Class 3 severe obesity due to excess calories with serious comorbidity and body mass index (BMI) of 40.0 to 44.9 in adult (HCC) (Primary Dx); Chronic fatigue; ROSARIO (obstructive sleep apnea); Dietary counseling; Exercise counseling 01/23/2025 Travel 01/22/2025 Telephone [facility] [address] [place] [phone] Jayda Patiño MD Chart Prep 01/15/2025 Telephone [facility] [address] [place] [address] Jayda Patiño MD 01/13/2025 Refill [facility] [address] [place], [place] [phone] [facility], [facility] Vitamin D deficiency 01/13/2025 Refill [facility] [address] [place] [address] Celena Farias DO Chronic rhinitis 01/13/2025 Refill [facility] [address] [place], [place] [phone] Jayda Patiño MD Chronic migraine without aura without status migrainosus, not intractable; Hyperlipidemia, unspecified hyperlipidemia type; Polyarthralgia; Health care maintenance 01/09/2025 5:00 PM EDT Office Visit [facility] [address] [place] [phone] Lorenzo Banegas MD Epigastric pain (Primary Dx); Bloating 01/09/2025 Travel 01/03/2025 Refill [facility] [address] [place] [address] Jayda Patiño MD Polyarthralgia; Migraine without aura, not refractory 12/19/2024 Refill [facility] [address] [place] [address] Jayda Patiño MD Class 3 severe obesity due to excess calories with serious comorbidity and body mass index (BMI) of 40.0 to 44.9 in adult 11/30/2024 Refill [facility] [address] [place] [address] Jayda Patiño MD Polyarthralgia 11/21/2024 Telephone [facility] [address] [place] [address] Jayda Paitño MD Medication Question 11/20/2024 Refill [facility] [address] [place] [address] Jayda Patiño MD Class 3 severe obesity due to excess calories with serious comorbidity and body mass index (BMI) of 40.0 to 44.9 in adult 11/12/2024 Refill [facility] [address] [place] [address] Jayda Patiño MD Polyarthralgia 11/05/2024 Refill [facility] [address] [place] [address] Jayda Patiño MD Polyarthralgia; Migraine without aura, not refractory 11/05/2024 Refill [facility] [address] [place] [address] Lissette White MD Hyperlipidemia, unspecified hyperlipidemia type; Chronic migraine without aura without status migrainosus, not intractable; Migraine without aura, not refractory 10/31/2024 Refill [facility] [address] [place] [address] Celena Farias DO Polyarthralgia 10/27/2024 Refill [facility] [address] [place] [address] Jayda Patiño MD Class 3 severe obesity due to excess calories with serious comorbidity and body mass index (BMI) of 40.0 to 44.9 in adult from Last 3 Months Immunizations Immunization Administration [...] Sign Reading Time Taken Comments Blood Pressure 148/92 01/09/2025 4:44 PM EDT Pulse 82 01/09/2025 4:44 PM EDT Temperature 36.7 C (98.1 F) 01/09/2025 4:44 PM EDT Respiratory Rate 23 01/09/2025 4:44 PM EDT Oxygen Saturation 100% 01/09/2025 4:44 PM EDT Inhaled Oxygen Concentration - - Weight 102 kg (224 lb 6 oz) 01/09/2025 4:44 PM E DT Height 157.5 cm (5' 2 ) 01/09/2025 4:44 PM EDT Body Mass Index 41.04 01/09/2025 4:44 PM EDT Plan of Treatment Upcoming Encounters Date Type Department Care Team (Late st Contact Info) Description 03/29/2025 1:00 PM EST Office Visit [facility] OPTOMETRY [address] [place] [address] Cain, Shama, OD [address] [place] [address] Health Maintenance Due Date Last Done Comments [...] 06/05/2012, 05/18/2005, 01/25/1995 COVID-19 Vaccine (1 - 2023- season) 2024 Influenza Vaccine (#1) 2024 , 03/17/2021, 01/08/2020, Additional history exists Mammogram 01/23/2025 01/24/2024, 12/25, 01/13/2022, Additional history exists Diabetes: Hemoglobin A1C 04/23/2025 024, 09/06/2022, 01/11/2022, Additional history exists Alcohol/Substance Use Screening 07/12/2025 07/12/2024 SDOH Screening 07/12/2025 07/12/2024 Tobacco Screening 01/09/2026 01/09/2025 Depression Screening 01/23/2026 01/23/2025, 01/24/20 25 Colonoscopy 08/17/2026 08/18/2023, 05/10/2013 Colorectal Cancer Screening [...] PM EST) Hemoglobin A1c 5.8 <6.0 % [facility] Comment:Hemoglobin A1C Refer ence Range Adults: 4.8 - 6.0 % Non diabetic: < 6.0 % Goal: < 7.0 %Additional Action Suggested: > 8.0 %Note: Hemoglobin A1c results are invalid for patients with abnormal amounts of HbF. Blood transfusions may impact the HbA1c concentration in the patient sample. Estimated Average Glucose 120 mg/dL [facility] Comment:eAG = Estimated ave rage glucose which is %A1C expressed asaverage glucose, using the formula of the H7Y-RhcvqnyEjqepdj Glucose study (ADAG), Diabetes Care, Vol.31,#8,2007 Blood Venous blood specimen / Unknown 04/23/2024 1:38 PM EST 04/23/2024 4:11 PM EST Jayda Mcelroy MD LAB BLOOD ORDERABLES Final Result Performing Organization Address [facility]/ZIP Co de Phone Number [facility] [address] [place] [phone] * (ABNORMAL) Lipid Panel, Standard (04/23/2024 1:38 PM EST) Triglycerides 319(H) <150 mg/dL [facility] Comment:Desirable Triglyceri de: less than 150 mg/dLBorderline High Triglyceride 150-199 mg/dLHigh Triglyceride: 200-499 mg/dLVery High Triglyceride: greater than or equal to 5OO mg/dL Cholesterol 191 <200 mg/dL [facility] Comment:Desirable Cholestero l: less than 200 mg/dLBorderline High Cholesterol: 200-239 mg/dLHigh Cholesterol: greater than 239 mg/dL LDL Cholesterol Calculated 97 <100 mg/dL [facility] Comment:Desirable LDL: less than 100 mg/dLNear Optimal/Above Optimal LDL: 110- 129 mg/dLBorderline High LDL: 130-159 mg/dLHigh LDL: 160-189 mg/dLVery High LDL: greater than or equal to 190 mg/dL HDL Cholesterol 31(L) >40 mg/dL [facility] Comment:Desirable HDL: great er than 40 mg/dL Note: This HDL assay may give artificially low results in patients with liver disease. Blood Venous blood specimen / Unknown 04/23/2024 1:38 PM EST 04/23/2024 4:11 PM EST us Jayda Mcelroy MD LAB BLOOD ORDERABLES Final Result Performing Organization Address [facility]/ZIP Co de Phone Number [facility] [address] [place] [phone] * BI Mammogram Screening Tomosynthesis Bilateral (01/24/2024 12:35 PM EDT) Anatomical Region Laterality Modality Breast Bilateral Mammography 01/24/2024 12:3 5 PM EDT Narrative 02/03/2024 9:07 AM EDT [facility] [address] [place] [address] Mammography Report Signed Patient: Milady Dean MR#: [id number] : 1965 Acct:[id number] Age/Sex: 58 / F ADM Date: 01/24/24 Loc: HO.MAMMO Attending Dr: Jayda Mcelroy MD Ordering Physician: Jayda Patiño MD Results: 1Negative Date of Service: 01/24/24 Follow Up: 1 Year From Orig inal Mammogram Procedure(s): MM tomosynthesis screening BI Accession Number(s): [id number] cc: Jayda Patiño MD EXAMINATION: MM SCREENING [...] 02/03/24 0904 DD/ 1235 TD/TT: 01/24/24 1250 Manager Games: Procedure Note Donotuseinterpreter, Image - 02/03/2024 [facility] [address] [place] [address] Mammography Report Signed Patient: Mabel Dean#: [id number] : 1965Acct:[id number] Age/Sex: 58 / FADM Date: 01/24/24 Loc: HO.MAMMO Attending Dr: Jayda Mcelroy MD Ordering Physician: Jayda Patiño MDResults: 1Negative Date of Service: 01/24/24Follow Up: 1 Year From Orig inal Mammogram Procedure(s): MM tomosynthesis screening BI Accession Number(s): [id number] cc: Jayda Patiño MD EXAMINATION: MM SCREENING [...] 02/03/24 0904 DD/ 1235 TD/TT: 01/24/24 1250 Manager Games: us Jayda Mcelroy MD IMG BI PROCEDURES Gabriel kristen Result - Final * Hm Colonoscopy (08/18/2023 10:07 AM EDT) Colonoscopy Normal Normal Narrative Donna Bal - 08/18/2023 10:07 AM EDT Repeat Colonoscopy in 3 years due to polyps and fair prep on right side or earlier if clinically indicated see the external hospital admission note on 08/18/2023 [facility] Provider [facility] Edited Result - Final * HPV mRNA E6/E7 w/Reflex to HPV Genotypes 16, 18/45 (07/01/2023 2:31 PM EST) HPV nRNA E6/E7 Not Detected Not Detected [facility] Comment:Methodology: Transcr iption-Mediated AmplificationThis assay detects E6/E7 viral messenger RNA (mRNA) from 14high-risk HPV types (16,18,31,33,35,39,45,51,52,56,58,59,66,68).Cervical sources are required for HPV testing.If a vaginal source from a patient who has had atotal hysterectomy with removal of cervix wassubmitted, please contact the testing laboratoryfor alternative testing options.For additional information, please refer tohttp://education.CertiRx/faq/DAU614t8(This link if provided for information/educational purposes only.)THIS TEST WAS PERFORMED AT:[facility] [place] [id number] SANCHEZ MD HPV mRNA E6/E7 [facility] HPV 16 RNA [facility] HPV 18/45 RNA [facility] 07/01/2023 2:31 PM EST 07/04/2023 8:45 AM EDT [facility] LAB CYTOLOGY ORDERABLES Final Result [facility] [address] [place] [phone] * Pap Smear (07/01/2023 2:31 PM EST) Swab Cervix uteri structure / Unknown 07/01/2023 2:31 PM EST 07/04/2023 8:45 AM EDT [facility] - 07/12/2023 9:30 AM EDT ----- ------- Name: Milady Dean Age/Sex: 58/F : 1965 Unit#: [id number] Attend Dr: Lora Wise Re07/01/23 Status: [facility] ----- ------- SPEC : [id number] RECD: 07/04/2345 STATUS: [place] SAAVEDRA NUM: [id number] TAMEKA: 07/01/23-1431 [facility] [address]: Lora Wise ENTERED: 07/04/23-1041 SP TYPE: Pap Smr OT DR: ORDERED: Pap Smear Interpretation Satisfactory for evaluation. No endocervical cells seen. Cytolysis noted. Negative for intraepithelial lesion or malignancy. HPV mRNA E6/E7: NOT DETECTED This assay detects E6/E7 viral messenger RNA (mRNA) from 14 high-risk HPV types (16, 18, 31, 33, 35, 39, 45, 51, 52, 56, 58, 59, 66, 68) HPV testing performed by [facility], [place], [place]. See reference laboratory portion of the EMR for entire report. Clinical Information LMP: Postmenopausal Previous PAP test: Unknown date/findings Material Received ThinPrep-Vaginal/Cervical ----- ------- Signed (signature on file) JEROME Jimenez (ASCP) 07/12/23 0930 ----- ------- END OF REPORT [facility] CYTOLOGY ORDERABLES Final Result [facility] [address] [place] [phone] * HEPATITIS C AB W/REFL TO HCV RNA, QN, PCR (09/16/2020 11:17 AM EDT) HEPATITIS C ANTIBODY NON-REACT KYE NON-REACT KYE [facility] INDEX 0.01 <1.00 [facility] Comment: HCV antibody was non-reactive. There is no laboratory evidence of HCV infection. In most cases, no further action is required. However, if recent HCV exposure is suspected, a test for HCV RNA (test code 68481) is suggested. For additional information please refer to http://education.CertiRx/faq/LDW16a6 (This link is being provided for informational/ educational purposes only.) 09/16/2020 11:1 7 AM EDT Jayda Mcelroy MD HISTORICAL/NON ORDERA BLE LABS Final Result [facility] [address] from Last 3 Months or Most Recently Relevant to Health Maintenance Insurance [facility] Care Teams Slicing Machine Tender Relationship Specialty Start Date End Date Jayda Patiño MD [address] [place] [address] PCP - General Family Medicine 04/05/19
--- OUTSIDE RECORDS SUMMARY | 2025-01-24 13:23 | XMS_ITS | Encounter Summary ---
Author Organization [employer] Address [address] [facility] 7t [place] [address] Care Team Providers Care Chemist Steroids Name Role Phone Jayda Patiño MD Primary Care Provide r Reason for Visit * Reason Comments Med Refill Encounter Details Date Type Department Care Team ([facility] st Contact Info) Description 11/05/2024 Refill [facility] [address] [place] [address] Jayda Patiño MD [address] [place] [address] Polyarthralgia; Migraine without aura, not refractory Social [...] Description 03/29/2025 1:00 PM EST Office Visit [facility] OPTOMETRY [address] [place] [address] Cain, Shama, OD [address] [place] [address] documented as of this encounter Visit Diagnoses Diagnosis Polyarthralgia Pain in joint, multiple sites Migraine without aura, not refractory documented in this encounter Additional Health Concerns Assessment Noted Time PHQ-9 Depression Total Score: 0 07/13/19 25 1:37 PM EDT documented as of this encounter Care Teams Chemist Steroids Relationship Specialty Start Date End Date Jayda Patiño MD [address] [place] [address] PCP - General Family Medicine 04/05/19 documented as of this encounter
--- OUTSIDE RECORDS SUMMARY | 2025-01-24 13:23 | XMS_ITS | Encounter Summary ---
Author Organization [employer] [facility] Address [address] [place] [address] 7 [place] [address] Care Team Providers Care Buzzsaw Operator Name Role Phone Jayda Patiño MD Primary Care Provide r Reason for Visit * Reason Comments Med Refill Encounter Details Date Type Department Care Team (Late st Contact Info) Description 07/02/2022 Refill [facility] MED[facility]INE [address] [place] [address] Lissette White MD [address] [place] [address] Chronic rhinitis Social History Tobacco Use Types [...] Description 03/29/2025 1:00 PM EST Office Visit [facility] OPTOMETRY [address] [place] [address] Shama Barlow, OD [address] [place] [address] documented as of this encounter Visit Diagnoses Diagnosis Chronic rhinitis documented in this encounter Care Teams Buzzsaw Operator Relationship Specialty Start Date End Date Jayda Patiño MD [address] [place] [address] PCP - General Family Medicine 04/05/19 documented as of this encounter
--- OUTSIDE RECORDS SUMMARY | 2025-01-24 13:23 | XMS_ITS | Encounter Summary ---
Author Organization [employer] Address [address] [facility] 7t [place] [address] Care Team Providers Care Physicians And Surgeons Name Role Phone Jayda Patiño MD Primary Care Provide r Reason for Visit * Reason Comments Med Refill Encounter Details Date Type Department Care Team ([facility] st Contact Info) Description 07/10/2024 Refill [facility] MEDICINE [address] [place] [address] Jayda Patiño MD [address] [place] [address] Hyperlipidemia, unspecified hyperlipidemia type; Hypertension, unspecified type; [...] Author Not at all 07/12/2024 1:37 PM Kimberly Dawn MA * Trouble concentrating on things, such as reading the newspaper or watching television Answer Date of Assessment Author Not at all 07/12/2024 1:37 PM Kimberly Dawn MA * Moving or speaking so slowly that other people could have noticed? Or the opposite - being so fidgety or restless that you have been moving around a lot more than usual. Answer Date of Assessment Author Not at all 07/12/2024 1:37 PM Kimberly Dawn MA * Thoughts that you would be better off or hurting yourself in some way Answer Date of Assessment Author Not at all 07/12/2024 1:37 PM Kimberly Dawn MA * Patient Health Questionnaire-9 Score Answer Date of Assessment Author 0 07/12/2024 1:37 PM Kimberly Dawn MA documented as of this encounter Plan of Treatment Upcoming Encounters Date Type Department Care Team (Late st Contact Info) Description 03/29/2025 1:00 PM EST Office Visit [facility] OPTOMETRY [address] [place] [address] Shama Barlow, OD [address] [place] [address] documented as of this encounter Visit Diagnoses Diagnosis Hyperlipidemia, unspecified hyperlipidemia type Hypertension, unspecified type Chronic migraine without aura without status migrainosus, not intractable documented in this encounter Additional Health Concerns Assessment Noted Time PHQ-9 Depression Total Score: 14 024 10:05 AM EST documented as of this encounter Care Teams Physicians And Surgeons Relationship Specialty Start Date End Date Jayda Patiño MD [address] [place] [address] PCP - General Family Medicine 04/05/19 documented as of this encounter
--- OUTSIDE RECORDS SUMMARY | 2025-01-24 13:23 | XMS_ITS | Encounter Summary ---
Author Organization [employer] [facility] Address [address] [place] [address] 7 [place] [address] Care Team Providers Care Associate Financial Representative Name Role Phone Jayda Patiño MD Primary Care Provide r Reason for Visit * Reason Comments Med Refill Encounter Details Date Type Department Care Team (Late st Contact Info) Description 05/22/2022 Refill [facility] [address] [place] [address] Celena Farias DO [address] [place] [address] Hypertension, unspecified type Social History Tobacco Use [...] Description 03/29/2025 1:00 PM EST Office Visit [facility] OPTOMETRY [address] [place], [place] [phone] Shama Barlow, OD [address] [place] [address] documented as of this encounter Visit Diagnoses Diagnosis Hypertension, unspecified type documented in this encounter Care Teams Associate Financial Representative Relationship Specialty Start Date End Date Jayda Patiño MD [address] [place] [address] PCP - General Family Medicine 04/05/19 documented as of this encounter
--- OUTSIDE RECORDS SUMMARY | 2025-01-24 13:23 | XMS_ITS | Encounter Summary ---
Author Organization [facility] Address [address] [place] [address] 7 [place] [address] Care Team Providers Care Controls Technician Name Role Phone Jayda Patiño MD Primary Care Provide r Reason for Visit * Reason Comments Med Refill Encounter Details Date Type Department Care Team (Late st Contact Info) Description 06/09/2022 Refill [facility] MEDICINE [address] [place] [address] Lissette White MD [address] [place] [address] Chronic rhinitis Social History Tobacco Use Types [...] Description 03/29/2025 1:00 PM EST Office Visit [facility] OPTOMETRY [address] [place] [address] Shama Barlow, OD [address] [place] [address] documented as of this encounter Visit Diagnoses Diagnosis Chronic rhinitis documented in this encounter Care Teams Controls Technician Relationship Specialty Start Date End Date Jayda Patiño MD [address] [place] [address] PCP - General Family Medicine 04/05/19 documented as of this encounter
--- OUTSIDE RECORDS SUMMARY | 2025-01-24 13:23 | XMS_ITS | Encounter Summary ---
Author Organization [employer] Address [address] [facility] 7t [place] [address] Care Team Providers Care Electrician Telephone Name Role Phone Jayda Patiño MD Primary Care Provide r Reason for Visit * Reason Comments Med Refill Encounter Details Date Type Department Care Team ([facility] st Contact Info) Description 04/04/2023 Refill [facility] MEDICINE [address] [place], [place] [phone] Marilee Whittaker MD [address] [place], [place] [phone] Chronic migraine without aura without status migrainosus, [...] 03/29/2025 1:00 PM EST Office Visit [facility] OPTOMETRY [address] [place], [place] [phone] Shama Barlow, OD [address] [place] [address] documented as of this encounter Visit Diagnoses Diagnosis Chronic migraine without aura without status migrainosus, not intractable documented in this encounter Additional Health Concerns Assessment Noted Time PHQ-9 Depression Total Score: 14 023 1:24 PM EDT documented as of this encounter Care Teams Electrician Telephone Relationship Specialty Start Date End Date Jayda Patiño MD [address] [place] [address] PCP - General Family Medicine 04/05/19 documented as of this encounter
--- OUTSIDE RECORDS SUMMARY | 2025-01-24 13:23 | XMS_ITS | Encounter Summary ---
Author Organization [email or web address] Address [address] [facility] 7t [place] [address] Care Team Providers Care Oil Well Fishing Tool Operator Name Role Phone Jayda Patiño MD Primary Care Provide r Reason for Visit * Reason Comments Med Refill Encounter Details Date Type Department Care Team ([facility] st Contact Info) Description 08/22/2024 Refill [facility] MEDICINE 230 [place] [address] Jayda Patiño MD [address] [place] [address] Pain of left heel Social History Tobacco [...] Description 03/29/2025 1:00 PM EST Office Visit [facility] OPTOMETRY [address] [place] [address] Cain, Shama, OD 230 [place] [address] documented as of this encounter Visit Diagnoses Diagnosis Pain of left heel documented in this encounter Additional Health Concerns Assessment Noted Time PHQ-9 Depression Total Score: 0 07/13/19 25 1:37 PM EDT documented as of this encounter Care Teams Oil Well Fishing Tool Operator Relationship Specialty Start Date End Date Jayda Patiño MD [address] [place] [address] PCP - General Family Medicine 04/05/19 documented as of this encounter
--- OUTSIDE RECORDS SUMMARY | 2025-01-24 13:23 | XMS_ITS | Encounter Summary ---
Author Organization [employer] Address [address] [facility] 7t [place] [address] Care Team Providers Care Board Hammer Operator Name Role Phone Jayda Patiño MD Primary Care Provide r Reason for Visit * Reason Onset Date Comments Med Refill 10/08/2024 Encounter Details Date Type Department Care Team (Late st Contact Info) Description 10/08/2024 Refill [facility] MEDICINE 230 [place] [address] Jayda Patiño MD 230 [place] [address] Health care maintenance Social History Tobacco Use [...] PM EST Office Visit [facility] OPTOMETRY [address] [place] [address] Cain, Shama, OD 230 [place] [address] documented as of this encounter Visit Diagnoses Diagnosis Health care maintenance documented in this encounter Additional Health Concerns Assessment Noted Time PHQ-9 Depression Total Score: 0 07/13/19 25 1:37 PM EDT documented as of this encounter Care Teams Board Hammer Operator Relationship Specialty Start Date End Date Jayda Patiño MD 230 [place] [address] PCP - General Family Medicine 04/05/19 documented as of this encounter
--- OUTSIDE RECORDS SUMMARY | 2025-01-24 13:23 | XMS_ITS | Encounter Summary ---
Author Organization [employer] Address 75 [facility] 7t [place] [address] Care Team Providers Care Log Chipper Name Role Phone Jayda Patiño MD Primary Care Provide r Reason for Visit * Reason Comments Med Refill Encounter Details Date Type Department Care Team ([facility] st Contact Info) Description 10/12/2024 Refill [facility] MEDICINE 230 [place] [address] Celena Farias DO 230 [place] [address] Polyarthralgia Social History Tobacco Use Types Packs/Day [...] Description 03/29/2025 1:00 PM EST Office Visit [facility] OPTOMETRY [address] [place] [address] Cain, Shama, OD 230 [place] [address] documented as of this encounter Visit Diagnoses Diagnosis Polyarthralgia Pain in joint, multiple sites documented in this encounter Additional Health Concerns Assessment Noted Time PHQ-9 Depression Total Score: 0 07/13/19 25 1:37 PM EDT documented as of this encounter Care Teams Log Chipper Relationship Specialty Start Date End Date Jayda Patiño MD 230 [place] [address] PCP - General Family Medicine 04/05/19 documented as of this encounter
--- OUTSIDE RECORDS SUMMARY | 2025-01-24 13:23 | XMS_ITS | Encounter Summary ---
Author Organization [employer] Address [address] [facility] 7t [place] [address] Care Team Providers Care Quality Director Name Role Phone Jayda Patiño MD Primary Care Provide r Reason for Visit * Reason Comments Med Refill Encounter Details Date Type Department Care Team ([facility] st Contact Info) Description 03/24/2023 Refill [facility] MED & PEDS [address] [place], [place] [phone] Jayda Patiño MD 230 [place] [address] Vitamin D deficiency Social History Tobacco Use [...] 1:00 PM EST Office Visit [facility] OPTOMETRY [address], [place] [phone] Shama Barlow, OD 230 [place] [address] documented as of this encounter Visit Diagnoses Diagnosis Vitamin D deficiency documented in this encounter Additional Health Concerns Assessment Noted Time PHQ-9 Depression Total Score: 14 023 1:24 PM EDT documented as of this encounter Care Teams Quality Director Relationship Specialty Start Date End Date Jayda Patiño MD 230 [place] [address] PCP - General Family Medicine 04/05/19 documented as of this encounter
--- OUTSIDE RECORDS SUMMARY | 2025-01-24 13:23 | XMS_ITS | Encounter Summary ---
Author Organization [facility] Address [address] [place] [address] 7 [place] [address] Care Team Providers Care Lead Systems Developer Name Role Phone Jayda Patiño MD Primary Care Provide r Reason for Visit * Reason Comments Med Refill Encounter Details Date Type Department Care Team (Late Contact Info) Description 08/13/2022 Refill [facility] MEDICINE 230 [place] [address] Lissette White MD [address] [place] [address] Chronic rhinitis Social History Tobacco Use Types [...] 03/29/2025 1:00 PM EST Office Visit [facility] OPTOMETRY [address] [place] [address] Shama Barlow, OD 230 [place] [address] documented as of this encounter Visit Diagnoses Diagnosis Chronic rhinitis documented in this encounter Care Teams Lead Systems Developer Relationship Specialty Start Date End Date Jayda Patiño MD [address] [place] [address] PCP - General Family Medicine 04/05/19 documented as of this encounter
--- OUTSIDE RECORDS SUMMARY | 2025-01-24 13:23 | XMS_ITS | Encounter Summary ---
Author Organization [employer] Address [address] [facility] 7t [place] [address] Care Team Providers Care Striper Name Role Phone Jayda Patiño MD Primary Care Provide r Reason for Visit * Reason Comments Med Refill Encounter Details Date Type Department Care Team ([facility] st Contact Info) Description 03/26/2023 Refill [facility] MEDICINE [address] [place], [place] [phone] Name, MD Lorenzo 230 [place] [address] Hypertension, unspecified type Social History Tobacco Use [...] Description 03/29/2025 1:00 PM EST Office Visit [facility] OPTOMETRY [address] [place], [place] [phone] Shama Barlow, OD 230 [place] [address] documented as of this encounter Visit Diagnoses Diagnosis Hypertension, unspecified type documented in this encounter Additional Health Concerns Assessment Noted Time PHQ-9 Depression Total Score: 14 023 1:24 PM EDT documented as of this encounter Care Teams Striper Relationship Specialty Start Date End Date Jayda Patiño MD 230 [place] [address] PCP - General Family Medicine 04/05/19 documented as of this encounter
--- OUTSIDE RECORDS SUMMARY | 2025-01-24 13:23 | XMS_ITS | Encounter Summary ---
Author Organization [employer] [facility] Address [address] [place] [address] 7 [place] [address] Care Team Providers Care Comber Setter Name Role Phone Jayda Patiño MD Primary Care Provide r Reason for Visit * Reason Comments Med Refill Encounter Details Date Type Department Care Team (Late Contact Info) Description 08/30/2022 Refill [facility] MEDICINE 230 [place] [address] Jayda Patiño MD 230 [place] [address] Chronic right shoulder pain Social History Tobacco [...] Description 03/29/2025 1:00 PM EST Office Visit [facility] OPTOMETRY 267 [place] [address] Shama Barlow, EMI 230 [place] [address] documented as of this encounter Visit Diagnoses Diagnosis Chronic right shoulder pain Pain in joint, shoulder region documented in this encounter Care Teams Comber Setter Relationship Specialty Start Date End Date Jadya Patiño MD 230 [place] [address] PCP - General Family Medicine 04/05/19 documented as of this encounter
--- OUTSIDE RECORDS SUMMARY | 2025-01-24 13:23 | XMS_ITS | Encounter Summary ---
Author Organization [employer] Address [address] [facility] [address] [place] [address] Care Team Providers Care Instructor Creeler Name Role Phone Jayda Patiño MD Primary Care Provide r Reason for Visit * Reason Comments Med Refill Encounter Details Date Type Department Care Team ([facility] st Contact Info) Description 01/13/2025 Refill [facility] MED & PEDS 505 [place], [place] [phone] [facility] 230 [place] [address] Vitamin D deficiency Social History Tobacco Use [...] [facility] OPTOMETRY [address] [place] [address] Cain, Shama, OD 230 [place] [address] documented as of this encounter Visit Diagnoses Diagnosis Vitamin D deficiency documented in this encounter Additional Health Concerns Assessment Noted Time PHQ-9 Depression Total Score: 0 07/13/19 25 1:37 PM EDT documented as of this encounter Care Teams Instructor Creeler Relationship Specialty Start Date End Date Jayda Patiño MD 230 [place] [address] PCP - General Family Medicine 04/05/19 documented as of this encounter
--- OUTSIDE RECORDS SUMMARY | 2025-01-24 13:23 | XMS_ITS | Encounter Summary ---
Author Organization [employer] Address [address] [facility] 7t [place] [address] Care Team Providers Care Rail Project Engineer Name Role Phone Jayda Patiño MD Primary Care Provide r Reason for Visit * Reason Comments Med Refill Encounter Details Date Type Department Care Team ([facility] st Contact Info) Description 04/29/2023 Refill [facility] MEDICINE 230 [place], [place] [phone] Marilee Whittaker MD 230 [place], [place] [phone] Hyperlipidemia, unspecified hyperlipidemia type; Chronic migraine without [...] Description 03/29/2025 1:00 PM EST Office Visit [facility] OPTOMETRY [address] [place], [place] [phone] Cain, Shama, OD 230 [place] [address] documented as of this encounter Visit Diagnoses Diagnosis Hyperlipidemia, unspecified hyperlipidemia type Chronic migraine without aura without status migrainosus, not intractable Chronic rhinitis documented in this encounter Additional Health Concerns Assessment Noted Time PHQ-9 Depression Total Score: 14 023 1:24 PM EDT documented as of this encounter Care Teams Rail Project Engineer Relationship Specialty Start Date End Date Jayda Patiño MD 230 [place], [place] [phone] PCP - General Family Medicine 04/05/19 documented as of this encounter
--- OUTSIDE RECORDS SUMMARY | 2025-01-24 13:23 | XMS_ITS | Encounter Summary ---
Author Organization [employer] Address [address] [place] [address] 7t [place] [address] Care Team Providers Care Senior Engineering Specialist Name Role Phone Jayda Patiño MD Primary Care Provide r Reason for Visit * Reason Comments Med Refill Encounter Details Date Type Department Care Team ([facility] Contact Info) Description 05/27/2022 Refill [facility] MEDICINE 230 [place] [address] Lia Edwards FNP 505 [place] [address] Chronic right shoulder pain Social History Tobacco [...] Description 03/29/2025 1:00 PM EST Office Visit [facility] OPTOMETRY [address] [place] [address] Shama Barlow, OD 230 [place] [address] documented as of this encounter Visit Diagnoses Diagnosis Chronic right shoulder pain Pain in joint, shoulder region documented in this encounter Care Teams Senior Engineering Specialist Relationship Specialty Start Date End Date Jayda Patiño MD 230 [place] [address] PCP - General Family Medicine 04/05/19 documented as of this encounter
--- OUTSIDE RECORDS SUMMARY | 2025-01-24 13:23 | XMS_ITS | Encounter Summary ---
Author Organization [employer] Address 75 [facility] 7t [place] [address] Care Team Providers Care Reserve Officer Name Role Phone Jayda Patiño MD Primary Care Provide r Reason for Visit * Reason Comments Med Refill Encounter Details Date Type Department Care Team ([facility] st Contact Info) Description 07/07/2023 Refill [facility] MEDICINE 230 [place] [address] Jayda Patiño MD 230 [place] [address] Health care maintenance Social History Tobacco Use [...] Description 03/29/2025 1:00 PM EST Office Visit [facility] OPTOMETRY [address] [place], [place] [phone] Cain, Shama, OD 230 [place] [address] documented as of this encounter Visit Diagnoses Diagnosis Health care maintenance documented in this encounter Additional Health Concerns Assessment Noted Time PHQ-9 Depression Total Score: 14 024 10:05 AM EST documented as of this encounter Care Teams Reserve Officer Relationship Specialty Start Date End Date Jayda Patiño MD 230 [place], [place] [phone] PCP - General Family Medicine 04/05/19 documented as of this encounter
--- OUTSIDE RECORDS SUMMARY | 2025-01-24 13:23 | XMS_ITS | Encounter Summary ---
Author Organization [employer] Address 75 [facility] 7t [place] [address] Care Team Providers Care Arresting Gear Operator Name Role Phone Jayda Patiño MD Primary Care Provide r Reason for Visit * Reason Comments Med Refill Encounter Details Date Type Department Care Team ([facility] st Contact Info) Description 04/29/2023 Refill [facility] MEDICINE 230 [place], [place] [phone] Name, MD Lorenzo 230 [place] [address] Hypertension, unspecified type Social History Tobacco Use [...] Description 03/29/2025 1:00 PM EST Office Visit [facility] OPTOMETRY [address] [place], [place] [phone] Shama Barlow, OD 230 [place] [address] documented as of this encounter Visit Diagnoses Diagnosis Hypertension, unspecified type documented in this encounter Additional Health Concerns Assessment Noted Time PHQ-9 Depression Total Score: 14 023 1:24 PM EDT documented as of this encounter Care Teams Arresting Gear Operator Relationship Specialty Start Date End Date Jayda Patiño MD 230 [place] [address] PCP - General Family Medicine 04/05/19 documented as of this encounter
--- OUTSIDE RECORDS SUMMARY | 2025-01-24 13:23 | XMS_ITS | Encounter Summary ---
Author Organization [employer] Address 75 [facility] 7t [place] [address] Care Team Providers Care Pressure Controller Name Role Phone Jayda Patiño MD Primary Care Provide r Reason for Visit * Reason Comments Med Refill Encounter Details Date Type Department Care Team ([facility] st Contact Info) Description 07/26/2024 Refill [facility] MEDICINE 230 [place] [address] Jayda Patiño MD 230 [place] [address] Class 3 severe obesity due to excess [...] [facility] OPTOMETRY [address] [place] [address] Shama Barlow, OD 230 [place] [address] documented as of this encounter Visit Diagnoses Diagnosis Class 3 severe obesity due to excess calories with serious comorbidity and body mass index (BMI) of 40.0 to 44.9 in adult (HCC) documented in this encounter Additional Health Concerns Assessment Noted Time PHQ-9 Depression Total Score: 0 07/13/19 25 1:37 PM EDT documented as of this encounter Care Teams Pressure Controller Relationship Specialty Start Date End Date Jayda Patiño MD 230 [place] [address] PCP - General Family Medicine 04/05/19 documented as of this encounter
--- OUTSIDE RECORDS SUMMARY | 2025-01-24 13:23 | XMS_ITS | Encounter Summary ---
Author Organization [employer] Address [address] [facility] 7t [place] [address] Care Team Providers Care Dividing Machine Operator Name Role Phone Jayda Patiño MD Primary Care Provide r Reason for Visit * Reason Comments Med Refill Encounter Details Date Type Department Care Team ([facility] st Contact Info) Description 11/12/2024 Refill [facility] MEDICINE 230 [place] [address] Jayda Patiño MD 230 [place] [address] Polyarthralgia Social History Tobacco Use Types Packs/Day [...] Description 03/29/2025 1:00 PM EST Office Visit [facility] OPTOMETRY [address] [place] [address] Cain, Shama, OD 230 [place] [address] documented as of this encounter Visit Diagnoses Diagnosis Polyarthralgia Pain in joint, multiple sites documented in this encounter Additional Health Concerns Assessment Noted Time PHQ-9 Depression Total Score: 0 07/13/19 25 1:37 PM EDT documented as of this encounter Care Teams Dividing Machine Operator Relationship Specialty Start Date End Date Jayda Patiño MD 230 [place] [address] PCP - General Family Medicine 04/05/19 documented as of this encounter
--- OUTSIDE RECORDS SUMMARY | 2025-01-24 13:24 | XMS_ITS | Encounter Summary ---
Author Organization [employer] Address 75 [facility] 7t [place] [address] Care Team Providers Care Parking Technician Name Role Phone Jayda Patiño MD Primary Care Provide r Reason for Visit * Reason Comments Med Refill Encounter Details Date Type Department Care Team ([facility] st Contact Info) Description 09/09/2024 Refill [facility] MEDICINE 230 [place] [address] Jayda Patiño MD 230 [place] [address] Chronic bilateral low back pain without sciatica [...] PM EST Office Visit [facility] OPTOMETRY [address] [place] [address] Cain, Shama, OD 230 [place] [address] documented as of this encounter Visit Diagnoses Diagnosis Chronic bilateral low back pain without sciatica documented in this encounter Additional Health Concerns Assessment Noted Time PHQ-9 Depression Total Score: 0 07/13/19 25 1:37 PM EDT documented as of this encounter Care Teams Parking Technician Relationship Specialty Start Date End Date Jayda Patiño MD 230 [place] [address] PCP - General Family Medicine 04/05/19 documented as of this encounter
--- OUTSIDE RECORDS SUMMARY | 2025-01-24 13:24 | XMS_ITS | Encounter Summary ---
Author Organization [employer] Address [address] [facility] [address] [address] 7[address] [place] [address] Care Team Providers Care Director Skills Name Role Phone Jayda Patiño MD Primary Care Provide r Reason for Visit * Reason Comments Med Refill Encounter Details Date Type Department Care Team ([facility] st Contact Info) Description 10/02/2024 Refill [facility] CHC MED & PEDS [address] [place] [address] Jayda Patiño MD 230 [place] [address] Chronic rhinitis Social History Tobacco Use Types [...] Description 03/29/2025 1:00 PM EST Office Visit [facility] OPTOMETRY [address] [place] [address] Cain, Shama, OD 230 [place] [address] documented as of this encounter Visit Diagnoses Diagnosis Chronic rhinitis documented in this encounter Additional Health Concerns Assessment Noted Time PHQ-9 Depression Total Score: 0 07/13/19 25 1:37 PM EDT documented as of this encounter Care Teams Director Skills Relationship Specialty Start Date End Date Jayda Patiño MD 230 [place] [address] PCP - General Family Medicine 04/05/19 documented as of this encounter
--- OUTSIDE RECORDS SUMMARY | 2025-01-24 13:24 | XMS_ITS | Encounter Summary ---
Author Organization [employer] [facility] Address [address] [place] [address] 7 [place] [address] Care Team Providers Care Flour Blender Helper Name Role Phone Jayad Patiño MD Primary Care Provide r Reason for Visit * Reason Comments Med Refill Encounter Details Date Type Department Care Team (Late Contact Info) Description 12/04/2022 Refill [facility] MEDICINE 230 [place] [address] Jayda Patiño MD 230 [place] [address] Gastro-esophageal reflux disease without esophagitis Social History [...] Description 03/29/2025 1:00 PM EST Office Visit [facility] OPTOMETRY [address] [place] [address] Cain, Shama, OD 230 [place] [address] documented as of this encounter Visit Diagnoses Diagnosis Gastro-esophageal reflux disease without esophagitis documented in this encounter Additional Health Concerns Assessment Noted Time PHQ-9 Depression Total Score: 14 023 1:24 PM EDT documented as of this encounter Care Teams Flour Blender Helper Relationship Specialty Start Date End Date Jayda Patiño MD 230 [place] [address] PCP - General Family Medicine 04/05/19 documented as of this encounter
--- OUTSIDE RECORDS SUMMARY | 2025-01-24 13:24 | XMS_ITS | Encounter Summary ---
Author Organization [employer] Address [address] [place] [address] 7 [place] [address] Care Team Providers Care Shuttler Car Name Role Phone Jayda Patiño MD Primary Care Provide r Reason for Visit * Reason Comments Med Refill Encounter Details Date Type Department Care Team (Late st Contact Info) Description 12/31/2022 Refill [facility] MEDICINE 230 [place] [address] Adela Denney FNP Health care maintenance Social [...] Description 03/29/2025 1:00 PM EST Office Visit [facility] OPTOMETRY [address] [place] [address] Shama Barlow, OD 230 [place] [address] documented as of this encounter Visit Diagnoses Diagnosis Health care maintenance documented in this encounter Additional Health Concerns Assessment Noted Time PHQ-9 Depression Total Score: 14 023 1:24 PM EDT documented as of this encounter Care Teams Shuttler Car Relationship Specialty Start Date End Date Jayda Patiño MD [address] [place] [address] PCP - General Family Medicine 04/05/19 documented as of this encounter
--- OUTSIDE RECORDS SUMMARY | 2025-01-24 13:24 | XMS_ITS | Encounter Summary ---
Author Organization [employer] Address [address] [place] [address] 7 [place] [address] Care Team Providers Care Nurse Infection Control Name Role Phone Jayda Patiño MD Primary Care Provide r Reason for Visit * Reason Comments Med Refill Encounter Details Date Type Department Care Team (Late st Contact Info) Description 10/22/2022 Refill [facility] 230 [place] [address] [facility] 230 [place] [address] Hypertension, unspecified type Social History Tobacco Use [...] Description 03/29/2025 1:00 PM EST Office Visit [facility] OPTOMETRY [address] [place] [address] Cain, Shama, OD 230 [place] [address] documented as of this encounter Visit Diagnoses Diagnosis Hypertension, unspecified type documented in this encounter Additional Health Concerns Assessment Noted Time PHQ-9 Depression Total Score: 14 023 1:24 PM EDT documented as of this encounter Care Teams Nurse Infection Control Relationship Specialty Start Date End Date Jayda Patiño MD 230 [place] [address] PCP - General Family Medicine 04/05/19 documented as of this encounter
--- OUTSIDE RECORDS SUMMARY | 2025-01-24 13:24 | XMS_ITS | Encounter Summary ---
Author Organization [employer] Address [address] [place] [address] 7t [place] [address] Care Team Providers Care Fill Manager Name Role Phone Jayda Patiño MD Primary Care Provide r Reason for Visit * Reason Comments Med Refill Encounter Details Date Type Department Care Team ([facility] st Contact Info) Description 09/06/2022 Refill [facility] MEDICINE [address] [place] [address] Jayda Patiño MD [address] [place] [address] Chronic right shoulder pain Social History Tobacco [...] Description 03/29/2025 1:00 PM EST Office Visit [facility] OPTOMETRY [address] [place] [address] Shama Barlow, OD [address] [place] [address] documented as of this encounter Visit Diagnoses Diagnosis Chronic right shoulder pain Pain in joint, shoulder region documented in this encounter Additional Health Concerns Assessment Noted Time PHQ-9 Depression Total Score: 14 023 1:24 PM EDT documented as of this encounter Care Teams Fill Manager Relationship Specialty Start Date End Date Jayda Patiño MD [address] [place] [address] PCP - General Family Medicine 04/05/19 documented as of this encounter
--- OUTSIDE RECORDS SUMMARY | 2025-01-24 13:24 | XMS_ITS | Encounter Summary ---
Author Organization [employer] Address [address] [facility] 7t [place] [address] Care Team Providers Care Single Pass Soil Stabilizer Operator Name Role Phone Jayda Patiño MD Primary Care Provide r Encounter Details Date Type Department Care Team (Latest Contact Info) Description 01/23/2025 Travel Social History Tobacco Use Types Packs/Day Years [...] [place] documented as of this encounter Plan of Treatment Upcoming Encounters Date Type Department Care Team (Late st Contact Info) Description 03/29/2025 1:00 PM EST Office Visit [facility] OPTOMETRY [address] [place] [address] Shama Barlow, OD [address] [place] [address] documented as of this encounter Visit Diagnoses Not on filedocumented in this encounter Additional Health Concerns Assessment Noted Time PHQ-9 Depression Total Score: 5 01/24/20 25 2:37 PM EDT documented as of this encounter Care Teams Single Pass Soil Stabilizer Operator Relationship Specialty Start Date End Date Jayda Patiño MD [address] [place] [address] PCP - General Family Medicine 04/05/19 documented as of this encounter
--- OUTSIDE RECORDS SUMMARY | 2025-01-24 13:24 | XMS_ITS | Encounter Summary ---
Author Organization [facility] Address [address] [place] [address] 7t [place] [address] Care Team Providers Care Ct Manager Name Role Phone Jayda Patiño MD Primary Care Provide r Reason for Visit * Reason Comments Med Refill Encounter Details Date Type Department Care Team ([facility] Contact Info) Description 09/25/2022 Refill [facility] MEDICINE [address] [place] [address] Jayda Patiño MD [address] [place] [address] Chronic right shoulder pain Social History Tobacco [...] Upcoming Encounters Date Type Department Care Team ([facility] Contact Info) Description 03/29/2025 1:00 PM EST Office Visit [facility] OPTOMETRY [address] [place] [address] Cain, Shama, OD [address] [place], [place] [phone] documented as of this encounter Visit Diagnoses Diagnosis Chronic right shoulder pain Pain in joint, shoulder region documented in this encounter Additional Health Concerns Assessment Noted Time PHQ-9 Depression Total Score: 14 023 1:24 PM EDT documented as of this encounter Care Teams Ct Manager Relationship Specialty Start Date End Date Jayda Patiño MD [address] [place] [address] PCP - General Family Medicine 04/05/19 documented as of this encounter
[2025-01-24 13:28] LABS: Hematocrit 47.1 % (37.0-47.0); Hemoglobin 15.6 g/dl (12.0-16.0); Imm Gran Abs Auto 0.01 X10*3/uL (0.00-0.03); Imm Gran Pct Auto 0.1 % (0.0-0.4); Lymphocytes Absolute Auto 2.3 X10*3/uL (1.2-4.9); Mean Corpuscular HGB Conc 33.1 g/dl (31.0-35.0); Mean Corpuscular Hemoglobin 30.7 pg (27.0-33.0); Mean Corpuscular Volume 92.7 fL (80.0-98.0); NRBC Abs Auto 0.000 X10*3/uL (0.0-0.012); NRBC Pct Auto 0.0 /100WBC (0.0-0.2); Platelet Count 209 X10*3/uL (160-400); Red Blood Count 5.08 X10*6/uL (4.20-5.50); White Blood Count 7.2 X10*3/uL (4.8-10.8)
[2025-01-24 13:42] LABS: Total Hemoglobin (HGBA1C) 4050.4877 umol/L
[2025-01-24 14:01] LABS: Alanine Aminotransferase 30 U/L (0-31); Albumin Level 4.3 g/dL (3.5-5.0); Alkaline Phosphatase 88 U/L (39-117); Anion Gap 9 (12-20); Aspartate Amino Transferase 34 U/L (5-31); Blood Urea Nitrogen 14 mg/dL (9-16); Calcium 9.0 mg/dL (8.4-10.2); Carbon Dioxide 29 mmol/L (22-29); Chloride 106 mmol/L (96-108); Cholesterol 167 mg/dL (<200); Estimated Glomerular Filt Rate 49; HDL Cholesterol 31 mg/dL (>40); Potassium 4.4 mmol/L (3.3-5.1); Sodium 140 mmol/L (135-145); Total Protein 6.9 g/dL (6.5-8.0); Triglycerides 180 mg/dL (<150)
[2025-01-25 05:54] LABS: HIV Num 1 0.06 S/CO (0.00-0.99); ~HepC Num1 0.07 S/CO (0.00-0.79); ~Hepatitis C Antibody Nonreactive (Nonreactive)
== END 2025-01-24 11:32 | disposition home or self-care (01) ==
LOC: HO.HHCL 11:31
PROVIDERS: PCP Internal Medicine; Visit Provider Internal Medicine
DX: R53.82 Chronic fatigue, unspecified (principal); Z11.4 Encounter for screening for human immunodeficiency virus [HIV]; Z11.59 Encounter for screening for other viral diseases
CPT/HCPCS: 36415; 80053; 80061; 82306; 83036; 84443; 85025; 86803; 87389

== ENCOUNTER 2025-01-29 12:10 | Outpatient (REF) | payer MEDICAID, SELFPAY ==
--- OUTSIDE RECORDS SUMMARY | 2025-01-29 15:08 | XMS_ITS | Encounter Summary ---
Author Organization [employer] Address [address] [facility] 7t [place] [address] Care Team Providers Care Sourcing Assistant Name Role Phone Jayda Patiño MD Primary Care Provide r Reason for Visit * Reason Comments Med Refill Encounter Details Date Type Department Care Team ([facility] st Contact Info) Description 04/04/2023 Refill [facility] MEDICINE [address] [place], [place] [phone] Marilee Whittaker MD [address] [place], [place] [phone] Chronic migraine without aura without status migrainosus, [...] Description 03/29/2025 1:00 PM EST Office Visit [facility] OPTOMETRY [address] [place], [place] [phone] Shama Barlow, OD [address] [place] [address] documented as of this encounter Visit Diagnoses Diagnosis Chronic migraine without aura without status migrainosus, not intractable documented in this encounter Additional Health Concerns Assessment Noted Time PHQ-9 Depression Total Score: 14 023 1:24 PM EDT documented as of this encounter Care Teams Sourcing Assistant Relationship Specialty Start Date End Date Jayda Patiño MD [address] [place] [address] PCP - General Family Medicine 04/05/19 documented as of this encounter
--- OUTSIDE RECORDS SUMMARY | 2025-01-29 15:08 | XMS_ITS | Encounter Summary ---
Author Organization [employer] Address [address] [facility] 7t [place] [address] Care Team Providers Care Medical Receptionist Assistant Name Role Phone Jayda Patiño MD Primary Care Provide r Reason for Visit * Reason Comments Med Refill Encounter Details Date Type Department Care Team ([facility] st Contact Info) Description 01/14/2024 Refill [facility] MEDICINE [address] [place], [place] [phone] Celena Farias DO 230 [place] [address] Chronic rhinitis Social History Tobacco Use Types [...] Description 03/29/2025 1:00 PM EST Office Visit [facility] OPTOMETRY [address] [place] [address] Cain, Shama, OD 230 [place] [address] documented as of this encounter Visit Diagnoses Diagnosis Chronic rhinitis documented in this encounter Additional Health Concerns Assessment Noted Time PHQ-9 Depression Total Score: 14 024 10:05 AM EST documented as of this encounter Care Teams Medical Receptionist Assistant Relationship Specialty Start Date End Date Jayda Patiño MD [address] [place] [address] PCP - General Family Medicine 04/05/19 documented as of this encounter
--- OUTSIDE RECORDS SUMMARY | 2025-01-29 15:08 | XMS_ITS | Encounter Summary ---
Author Organization [employer] Address [address] [facility] 7t [place] [address] Care Team Providers Care Medical Record Clerk Name Role Phone Jayda Patñio MD Primary Care Provide r Reason for Visit * Reason Comments Med Refill Encounter Details Date Type Department Care Team ([facility] st Contact Info) Description 12/31/2023 Refill [facility] [address] [place], [place] [phone] Marilee Whittaker MD [address] [place], [place] [phone] Chronic migraine without aura without status migrainosus, [...] Description 03/29/2025 1:00 PM EST Office Visit [facility] [address] [place], [place] [phone] Shama Barlow, OD 230 [place] [address] documented as of this encounter Visit Diagnoses Diagnosis Chronic migraine without aura without status migrainosus, not intractable documented in this encounter Additional Health Concerns Assessment Noted Time PHQ-9 Depression Total Score: 14 024 10:05 AM EST documented as of this encounter Care Teams Medical Record Clerk Relationship Specialty Start Date End Date Jayda Patiño MD [address] [place] [address] PCP - General Family Medicine 04/05/19 documented as of this encounter
--- OUTSIDE RECORDS SUMMARY | 2025-01-29 15:08 | XMS_ITS | Encounter Summary ---
Author Organization [employer] Address [address] [place] [address] 7 [place] [address] Care Team Providers Care Food Beverage Manager Name Role Phone Jayda Patiño MD Primary Care Provide r Reason for Visit * Reason Comments Med Refill Encounter Details Date Type Department Care Team ([facility] st Contact Info) Description 02/24/2023 Refill [facility] MED[facility]INE [address] [place] [address] Jayda Patiño MD [address] [place] [address] Chronic migraine without aura without status migrainosus, [...] Description 03/29/2025 1:00 PM EST Office Visit [facility] OPTOMETRY [address] [place] [address] Shama Barlow, OD [address] [place] [address] documented as of this encounter Visit Diagnoses Diagnosis Chronic migraine without aura without status migrainosus, not intractable Vitamin D deficiency Chronic rhinitis Hyperlipidemia, unspecified hyperlipidemia type documented in this encounter Additional Health Concerns Assessment Noted Time PHQ-9 Depression Total Score: 14 023 1:24 PM EDT documented as of this encounter Care Teams Food Beverage Manager Relationship Specialty Start Date End Date Jayda Patiño MD [address] [place] [address] PCP - General Family Medicine 04/05/19 documented as of this encounter
--- OUTSIDE RECORDS SUMMARY | 2025-01-29 15:08 | XMS_ITS | Encounter Summary ---
Author Organization [employer] Address [address] [facility] 7t [place] [address] Care Team Providers Care Design Consultant Name Role Phone Jayda Patiño MD Primary Care Provide r Encounter Details Date Type Department Care Team ([facility] st Contact Info) Description 02/02/2023 Abstract [facility] MEDICINE [address] [place] [address] Jayda Patiño MD [address] [place] [address] Social History Tobacco Use Types Packs/Day Years [...] Description 03/29/2025 1:00 PM EST Office Visit [facility] OPTOMETRY [address] [place], [place] [phone] Cain, Shama, OD 230 [place] [address] documented as of this encounter Procedures Procedure [...] documented as of this encounter Care Teams Design Consultant Relationship Specialty Start Date End Date Jayda Patiño MD [address] [place], [place] [phone] PCP - General Family Medicine 04/05/19 documented as of this encounter
--- OUTSIDE RECORDS SUMMARY | 2025-01-29 15:08 | XMS_ITS | Encounter Summary ---
Author Organization [employer] Address [address] [facility] 7t [place] [address] Care Team Providers Care Metal Pickling Equipment Operator Name Role Phone Jayda Patiño MD Primary Care Provide r Reason for Visit * Reason Comments Med Refill Encounter Details Date Type Department Care Team ([facility] st Contact Info) Description 03/24/2023 Refill [facility] [address] [place], [place] [phone] Jayda Patiño MD [address] [place] [address] Vitamin D deficiency Social History Tobacco Use [...] Description 03/29/2025 1:00 PM EST Office Visit [facility] OPTOMETRY [address] [place], [place] [phone] Shama Barlow, OD [address] [place] [address] documented as of this encounter Visit Diagnoses Diagnosis Vitamin D deficiency documented in this encounter Additional Health Concerns Assessment Noted Time PHQ-9 Depression Total Score: 14 023 1:24 PM EDT documented as of this encounter Care Teams Metal Pickling Equipment Operator Relationship Specialty Start Date End Date Jayda Patiño MD [address] [place] [address] PCP - General Family Medicine 04/05/19 documented as of this encounter
--- OUTSIDE RECORDS SUMMARY | 2025-01-29 15:08 | XMS_ITS | Clinical Summary ---
Author Organization [employer] [facility] Address [address] [place] [address] Care Team Providers Care Perioperative Educator Name Role Phone Jayda Patiño MD Primary Care Provide r Surgical History Surgery Date Site/Laterality Comments BUNIONECTOMY 2014 Left PROCEDURE: SC CORRJ HLX VLGS BNCTY SESMDC W/DOUBLE OSTEOTOMY OTHER SURGICAL HISTORY 12/28/12 PROCEDURE: OUTSIDE PAP SMEAR TUBAL LIGATION PROCEDURE: HISTORICAL TUBAL LIGATION EYE SURGERY Left PROCEDURE: HISTORICAL EYE SURGERY; COMMENT: EYELID CERVICAL BIOPSY W/ LOOP ELECTRODE EXCISION PROCEDURE: SC CONIZATION CERVIX W/WO D&C RPR ELTRD EXC; [...] deficiency Recurrent major depression (CMS/HCC V24) 01/05/20 DX:Recurrent major depression (HCC) Chronic abdominal pain [...] age to complete this topic Care Teams Perioperative Educator Relationship Specialty Start Date End Date Jayda Patiño MD [address] [place] [phone] PCP - General 06/16/23
--- OUTSIDE RECORDS SUMMARY | 2025-01-29 15:08 | XMS_ITS | Encounter Summary ---
Author Organization [employer] Address [address] [facility] 7t [place] [address] Care Team Providers Care Structural Welder Name Role Phone Jayda Patiño MD Primary Care Provide r Reason for Visit * Reason Comments Med Refill Encounter Details Date Type Department Care Team ([facility] st Contact Info) Description 01/14/2024 Refill [facility] MEDICINE [address] [place] [address] Jayda Patiño MD [address] [place] [address] Health care maintenance Social History Tobacco Use [...] Description 03/29/2025 1:00 PM EST Office Visit [facility] OPTOMETRY [address] [place], [place] [phone] Cain, Shama, OD [address] [place] [address] documented as of this encounter Visit Diagnoses Diagnosis Health care maintenance documented in this encounter Additional Health Concerns Assessment Noted Time PHQ-9 Depression Total Score: 14 024 10:05 AM EST documented as of this encounter Care Teams Structural Welder Relationship Specialty Start Date End Date Jayda Patiño MD [address] [place], [place] [phone] PCP - General Family Medicine 04/05/19 documented as of this encounter
--- OUTSIDE RECORDS SUMMARY | 2025-01-29 15:08 | XMS_ITS | Encounter Summary ---
Author Organization [employer] Address [address] [facility] 7t [place] [address] Care Team Providers Care Citizenship Teacher Name Role Phone Jayda Patiño MD Primary Care Provide r Reason for Visit * Reason Comments Med Refill Encounter Details Date Type Department Care Team ([facility] st Contact Info) Description 02/20/2024 Refill [facility] MEDICINE [address] [place], [place] [phone] Celena Farias DO [address] [place] [address] Chronic rhinitis Social History Tobacco Use Types [...] 03/29/2025 1:00 PM EST Office Visit [facility] OPTOMETRY [address] [place] [address] Cain, Shama, OD [address] [place] [address] documented as of this encounter Visit Diagnoses Diagnosis Chronic rhinitis documented in this encounter Additional Health Concerns Assessment Noted Time PHQ-9 Depression Total Score: 14 024 10:05 AM EST documented as of this encounter Care Teams Citizenship Teacher Relationship Specialty Start Date End Date Jayda Patiño MD [address] [place] [address] PCP - General Family Medicine 04/05/19 documented as of this encounter
--- OUTSIDE RECORDS SUMMARY | 2025-01-29 15:09 | XMS_ITS | Clinical Summary ---
Author Organization [employer] Address [address] [place] [address] 7t [place] [address] Care Team Providers Care Truck Driver Teamster Name Role Phone Jayda Patiño MD Primary [...] (BMI) of 40.0 to 44.9 in adult ([facility]) Inject 0.5 mL (7.5 mg) under the [...] Team Description 01/23/2025 2:45 PM EDT Telemedicine [facility] [address] [place] [phone] Jayda Patiño MD Class 3 severe obesity due to excess calories with serious comorbidity and body mass index (BMI) of 40.0 to 44.9 in adult (HCC) (Primary Dx); Chronic fatigue; ROSARIO (obstructive sleep apnea); Dietary counseling; Exercise counseling 01/23/2025 Travel 01/22/[address] [facility] [address] [place] [phone] Jayda Patiño MD Chart Prep 01/15/[address] [facility] [address] [place] [address] Jayda Patiño MD 01/13/[address] [facility] [address] [place], [place] [phone] [facility], [facility] Vitamin D deficiency 01/13/[address] [facility] [address] [place] [address] Celena Farias DO Chronic rhinitis 01/13/[address] [facility] [address] [place], [place] [phone] Jayda Patiño MD Chronic migraine without aura without status migrainosus, not intractable; Hyperlipidemia, unspecified hyperlipidemia type; Polyarthralgia; Health care maintenance 01/09/2025 5:00 PM EDT Office Visit [facility] [address] [place] [phone] Lorenzo Banegas MD Epigastric pain (Primary Dx); Bloating 01/09/2025 Travel 01/03/[address] [facility] [address] [place] [address] Jayda Patiño MD Polyarthralgia; Migraine without aura, not refractory 12/19/[address] [facility] [address] [place] [address] Jayda Patiño MD Class 3 severe obesity due to excess calories with serious comorbidity and body mass index (BMI) of 40.0 to 44.9 in adult 11/30/[address] [facility] [address] [place] [address] Jayda Patiño MD Polyarthralgia 11/21/[address] [facility] [address] [place] [address] Jayda Patiño MD Medication Question 11/20/[address] [facility] [address] [place] [address] Jayda Patiño MD Class 3 severe obesity due to excess calories with serious comorbidity and body mass index (BMI) of 40.0 to 44.9 in adult 11/12/[address] [facility] [address] [place] [address] Jayda Patiño MD Polyarthralgia 11/05/[address] [facility] [address] [place] [address] Jayda Patiño MD Polyarthralgia; Migraine without aura, not refractory 11/05/[address] [facility] [address] [place] [address] Lissette White MD Hyperlipidemia, unspecified hyperlipidemia type; Chronic migraine without aura without status migrainosus, not intractable; Migraine without aura, not refractory 10/31/[address] [facility] [address] [place] [address] Celena Farias DO Polyarthralgia from Last 3 Months Immunizations Immunization Administration [...] t he electric, gas, oil or water [employer] threatened to shut off services in your [...] Description 03/29/2025 1:00 PM EST Office Visit [facility] [address] [place] [address] Cain, Shama, OD [address] [place] [address] Health Maintenance Due Date Last Done Comments CT Colonography 1965 FIT DNA/Cologuard 1965 FIT 1965 FOBT 1965 Sigmoidoscopy 1965 Disability Screening 1965 Hepatitis [...] 01/23/2025 01/24/2024, 12/25, 01/13/2022, Additional history exists Alcohol/Substance Use Screening 07/12/2025 07/12/2024 SDOH Screening 07/12/2025 07/12/2024 Tobacco Screening 01/09/2026 01/09/2025 Depression Screening 01/23/2026 01/23/2025, 01/24/20 Diabetes: Hemoglobin A1C 01/24/2026 025, 04/23/2024, 09/06/2022, Additional history exists Colonoscopy 08/17/2026 08/18/2023, 05/10/2013 Colorectal Cancer Screening 08/17/2026 Cervical Cancer Screening 06/30/2028 HPV/Cotest 06/30/2028 07/01/2023, 06/14/2019 Pap Smear 06/30/2028 07/01/2023 Lipid Panel 01/24/2030 01/24/2025, 03/27, 09/06/2022, Additional history exists RSV Patients and Patients Aged 60 years or older (1 - 1-dose 75+ series) 2041 HIV Screening Completed 01/24/2025 Hepatitis C Screening Completed 01/24/2025, 021 HIB Vaccines Aged Out No longer eligi [...] Procedure Name Priority Date/Time Associated Diagnosis Comments TSH W/REFLEX TO FT4 Routine 01/24/2025 1 1:36 AM EDT Chronic fatigue VITAMIN D,25-OH,TOTAL,IA Routine 01/24/2025 11:36 AM EDT Chronic fatigue LIPID PANEL, STANDARD Routine 01/24/2025 11:36 AM EDT Chronic fatigue HEPATITIS C AB W/REFL TO HCV RNA, QN, PCR Routine 01/24/2025 11:36 AM EDT Chronic fatigue HIV 1/2 ANTIGEN/ANTIBODY, FOURTH GENERATION W/RFL Routine 01/24/2025 11:36 AM EDT Chronic fatigue HEMOGLOBIN A1C Routine 01/24/2025 11:36 AM EDT Chronic fatigue COMPREHENSIVE METABOLIC PANEL Routine 01/24/2025 11:36 AM EDT Chronic fatigue CBC WITH AUTO DIFFERENTIAL Routine 01/24/2025 11:36 AM EDT Chronic fatigue BI MAMMOGRAM SCREENING TOMOSYNTHESIS BILATERAL Routine 01/24/2024 12:35 PM EDT HM COLONOSCOPY Routine 08/18/2023 10:07 AM EDT HPV MRNA E6/E7 REFLEX TO HPV 16, 18/45 Routine 07/01/2023 2:31 PM EST PAP SMEAR Routine 07/01/2023 2:31 PM EST Encounter for Papanicolaou smear for cervical cancer screening from Last 3 Months or Most Recently Relevant to Health Maintenance Results * Vitamin D, 25-Hydroxy, Total, Immunoassay (01/24/2025 11:36 AM EDT) Vitamin D 25-OH Total 60.3 >30 ng/mL [facility] Comment: Health Based Reference Values*< 20 ng/mL [id number] ng/mL Insufficient> 30 ng/mL Sufficient*[place] MULTANI. N Engl J Med. 2007;357:266-280There is no well-established upper level of normal vitamin Dlevels. Some laboratories use 50 ng/mL as an upper limit ofnormal. However, toxicity is patient-dependent and may occurat any level. Careful correlation with the patient'spresentation is necessary and, if there is concern forvitamin D toxicity, treatment should be consideredirrespective of the serum level.Care must be taken in interpreting Vitamin D [...] LC-MS/MS. Blood Venous blood specimen / Unknown 01/24/2025 11:36 AM EDT 01/24/2025 1:17 PM EDT us Jayda Mcelroy MD LAB BLOOD ORDERABLES Final Result Performing Organization Address [facility]/ZIP Co de Phone Number [facility] [address] [place] [phone] * TSH with Reflex to Free T4 (01/24/2025 11:36 AM EDT) TSH reflex Free T4 1.88 0.32 - 4.0 uIU/mL [facility] Blood Venous blood specimen / Unknown 01/24/2025 11:36 AM EDT 01/24/2025 1:17 PM EDT us Jayda Mcelroy MD LAB BLOOD ORDERABLES Final Result [facility] [address] [place] [address] [phone] * (ABNORMAL) CBC auto differential (01/24/2025 11:36 AM EDT) White Blood Count 7.2 4.8 - 10.8 X10*3/uL [facility] Red Blood Count 5.08 4.20 - 5.50 X10*6/uL [facility] Hemoglobin 15.6 12.0 - 16.0 g/dl [facility] Hematocrit 47.1(H) 37.0 - 47.0 % [facility] Mean Corpuscular Volume 92.7 80.0 - 98.0 fL [facility] Mean Corpuscular Hemoglobin 30.7 27.0 - 33.0 pg [facility] Mean Corpuscular HGB Conc 33.1 31.0 - 35.0 g/dl [facility] Red Cell Distribution Width 13.2 11.0 - 16.0 % [facility] Platelet Count 209 160 - 400 X10*3/uL [facility] Mean Platelet Volume 12.5(H) 9.4 - 12.3 fL [facility] Neutrophils Percent Auto 57.5 45 - 73 % [facility] Imm Gran Pct Auto 0.1 0.0 - 0.4 % [facility] Lymphocytes Percent Auto 32.5 20 - 40 % [facility] Monocytes Percent Auto 6.7 2 - 11 % [facility] Eosinophils Percent Auto 2.5 0 - 4 % [facility] Basophils Percent Auto 0.7 0 - 2 % [facility] NRBC Pct Auto 0.0 0.0 - 0.2 /100WBC [facility] Neutrophils Absolute Auto 4.1 2.0 - 8.3 x10*3/uL [facility] Imm Gran Abs Auto 0.01 0.00 - 0.03 X10*3/uL [facility] Lymphocytes Absolute Auto 2.3 1.2 - 4.9 X10*3/uL [facility] Monocytes Absolute Auto 0.5 0.1 - 1.2 X10*3/uL [facility] Eosinophils Absolute Auto 0.2 0.0 - 0.4 X10*3/uL [facility] Basophils Absolute Auto 0.1 0.0 - 0.2 X10*3/uL [facility] NRBC Abs Auto 0.000 0.0 - 0.012 X10*3/uL [facility] Blood Venous blood specimen / Unknown 01/24/2025 11:36 AM EDT 01/24/2025 1:17 PM EDT Jayda Mcelroy MD LAB BLOOD ORDERABLES Final Result Performing Organization Address City/[facility]/ZIP Co de Phone Number [facility] [address] [place] [phone] * Hepatitis C Antibody with Reflex to HCV, RNA, Quantitative, Real-Time PCR (01/24/2025 11:36 AM EDT) Pathologist [facility] Hepatitis C Antibody Nonreactive Nonreactive [facility] Comment:Antibodies to HCV no t detected; does not exclude early acuteHCV infection. Blood Venous blood specimen / Unknown 01/24/2025 11:36 AM EDT 01/24/2025 1:17 PM EDT Jayda Mcelroy MD LAB BLOOD ORDERABLES Final Result Performing Organization Address City/[facility]/ZIP Co de Phone Number [facility] [address] [place] [phone] * HIV-1/2 Antigen and Antibodies, Fourth Generation, with Reflexes (01/24/2025 11:36 AM EDT) HIV AB/AG Nonreactive Nonreactive [facility] Comment:HIV-1 p24 Ag and/or HIV-1/HIV-2 Ab not detected.A test result that is nonreactive does not exclude thepossibility of exposure to or infection with HIV-1 and/orHIV-2. Nonreactive results in this assay for individualswith prior exposure to HIV-1 and/or HIV-2 may be due toantigen and antibody levels that are below the limit ofdetection of this assay.The [employer] HIV Ag/Ab Combo assay result andsupplemental assay results should be interpreted inconjunction with the patient's clinical presentation,history and other laboratory results. If the results areinconsistent with clinical evidence, additional testing issuggested to confirm the result. Blood Venous blood specimen / Unknown 01/24/2025 11:36 AM EDT 01/24/2025 1:17 PM EDT Jayda Mcelroy MD LAB BLOOD ORDERABLES Final Result Performing Organization Address [facility] Co de Phone Number [facility] [address] [place] [phone] * Hemoglobin A1c (01/24/2025 11:36 AM EDT) Hemoglobin A1c 5.0 <6.0 % [facility] Comment:Hemoglobin A1C Refer ence Range Adults: 4.8 - 6.0 % Non diabetic: < 6.0 % Goal: < 7.0 %Additional Action Suggested: > 8.0 %Note: Hemoglobin A1c results are invalid for patients with abnormal amounts of HbF. Blood transfusions may impact the HbA1c concentration in the patient sample. Estimated Average Glucose 97 mg/dL [facility] Comment:eAG = Estimated ave rage glucose which is %A1C expressed asaverage glucose, using the formula of the K1V-PgjvrnfFuwvxhh Glucose study (ADAG), Diabetes Care, Vol.31,#8,Nov. 2007 Blood Venous blood specimen / Unknown 01/24/2025 11:36 AM EDT 01/24/2025 1:17 PM EDT us Jayda Mcelroy MD LAB BLOOD ORDERABLES Final Result Performing Organization Address [facility] Co de Phone Number [facility] [address] [place] [phone] * (ABNORMAL) Lipid Panel, Standard (01/24/2025 11:36 AM EDT) Triglycerides 180(H) <150 mg/dL [facility] Comment:Desirable Triglyceri de: less than 150 mg/dLBorderline High Triglyceride 150-199 mg/dLHigh Triglyceride: 200-499 mg/dLVery High Triglyceride: greater than or equal to 5OO mg/dL Cholesterol 167 <200 mg/dL [facility] Comment:Desirable Cholestero l: less than 200 mg/dLBorderline High Cholesterol: 200-239 mg/dLHigh Cholesterol: greater than 239 mg/dL LDL Cholesterol Calculated 100(H) <100 mg/dL [facility] Comment:Desirable LDL: less than 100 mg/dLNear Optimal/Above Optimal LDL: 110- 129 mg/dLBorderline High LDL: 130-159 mg/dLHigh LDL: 160-189 mg/dLVery High LDL: greater than or equal to 190 mg/dL HDL Cholesterol 31(L) >40 mg/dL [facility] Comment:Desirable HDL: great er than 40 mg/dL Note: This HDL assay may give artificially low results in patients with liver disease. Blood Venous blood specimen / Unknown 01/24/2025 11:36 AM EDT 01/24/2025 1:17 PM EDT us Jayda Mcelroy MD LAB BLOOD ORDERABLES Final Result [facility] [address] [place] [address] [phone] * (ABNORMAL) Comprehensive Metabolic Panel (01/24/2025 11:36 AM EDT) Sodium 140 135 - 145 mmol/L [facility] Potassium 4.4 3.3 - 5.1 mmol/L [facility] Chloride 106 96 - 108 mmol/L [facility] Carbon Dioxide 29 22 - 29 mmol/L [facility] Anion Gap 9(L) 12 - 20 [facility] Urea Nitrogen (BUN) 14 9 - 16 mg/dL [facility] Creatinine, Serum 1.13 0.5 - 1.4 mg/dL [facility] Estimated Glomerular Filt Rate 49 [facility] Comment:Chronic Kidney Disea se: Estimated GFR < 60 mL/min/1.36m3Jlxytd Kidney Disease: Estimated GFR < 15 mL/min/1.73m2 Glucose 99 60 - 115 mg/dL [facility] Calcium 9.0 8.4 - 10.2 mg/dL [facility] Bilirubin, Total 0.5 0.0 - 1.0 mg/dL [facility] Aspartate Amino Transferase 34(H) 5 - 31 U/L [facility] Alanine Aminotransferase 30 0 - 31 U/L [facility] Total Protein 6.9 6.5 - 8.0 g/dL [facility] Albumin Level 4.3 3.5 - 5.0 g/dL [facility] Alkaline Phosphatase 88 39 - 117 U/L [facility] Blood Venous blood specimen / Unknown 01/24/2025 11:36 AM EDT 01/24/2025 1:17 PM EDT us Jayda Mcelroy MD LAB BLOOD ORDERABLES Final Result Performing Organization Address City/State/[facility] Co de Phone Number [facility] [address] [place] [phone] * BI Mammogram Screening Tomosynthesis Bilateral (01/24/2024 12:35 PM EDT) Anatomical Region Laterality Modality Breast Bilateral Mammography 01/24/2024 12:3 5 PM EDT Narrative 02/03/2024 9:07 AM EDT [facility] [address] [place] [address] Mammography Report Signed Patient: Milady Dean MR#: [id number] : 1965 Acct:[id number] Age/Sex: 58 / F ADM Date: 01/24/24 Loc: [place] Attending Dr: Jayda Mcelroy MD Ordering Physician: Jayda Patiño MD Results: 1Negative Date of Service: 01/24/24 Follow Up: 1 Year From Orig inal Mammogram Procedure(s): MM tomosynthesis screening BI Accession Number(s): [id number] cc: Jayda Patiño MD EXAMINATION: MM SCREENING [...] 02/03/24 0904 DD/ 1235 TD/TT: 01/24/24 1250 Mascara Molder: Procedure Note Donotuseinterpreter, Image - 02/03/2024 [facility] [address] [place] [address] [place] [address] Mammography Report Signed Patient: Mabel Dean#: [id number] : 1965Acct:[id number] Age/Sex: 58 / FADM Date: 01/24/24 Loc: [facility] Attending Dr: Jayda Mcelroy MD Ordering Physician: Jayda Patiño MDResults: 1Negative Date of Service: 01/24/24Follow Up: 1 Year From Orig inal Mammogram Procedure(s): MM tomosynthesis screening BI Accession Number(s): [id number] cc: Jayda Patiño MD EXAMINATION: MM SCREENING [...] 02/03/24 0904 DD/ 1235 TD/TT: 01/24/24 1250 Mascara Molder: Jayda Mcelroy MD IMG BI PROCEDURES Gabriel kristen Result - Final * Hm Colonoscopy (08/18/2023 10:07 AM EDT) Colonoscopy Normal Normal Narrative Donna Bal - 08/18/2023 10:07 AM EDT Repeat Colonoscopy in 3 years due to polyps and fair prep on right side or earlier if clinically indicated see the external hospital admission note on 08/18/2023 Historical Provider [facility] MAINTENANCE Edited Result - Final * HPV mRNA E6/E7 w/Reflex to HPV Genotypes 16, 18/45 (07/01/2023 2:31 PM EST) HPV nRNA E6/E7 Not Detected Not Detected [facility] Comment:Methodology: Transcr iption-Mediated AmplificationThis assay detects E6/E7 viral messenger RNA (mRNA) from 14high-risk HPV types (16,18,31,33,35,39,45,51,52,56,58,59,66,68).Cervical sources are required for HPV testing.If a vaginal source from a patient who has had atotal hysterectomy with removal of cervix wassubmitted, please contact the testing laboratoryfor alternative testing options.For additional information, please refer tohttp://education.[employer]/faq/DSJ858h6(This link if provided for information/educational purposes only.)THIS TEST WAS PERFORMED AT:[employer] [place] [phone] SANCHEZ MD HPV mRNA E6/E7 [facility] HPV 16 RNA [facility] HPV 18/45 RNA [facility] 07/01/2023 2:31 PM EST 07/04/2023 8:45 AM EDT [facility] CYTOLOGY ORDERABLES Final Result Performing Organization Address City/State/[facility] Co de Phone Number [facility] [address] [place] [phone] * Pap Smear (07/01/2023 2:31 PM EST) Swab Cervix uteri structure / Unknown 07/01/2023 2:31 PM EST 07/04/2023 8:45 AM EDT Narrative [facility] - 07/12/2023 9:30 AM EDT ----- ------- Name: Milady Dean Age/Sex: 58/F : 1965 Unit#: [id number] Attend Dr: Lora WiseP Re07/01/23 Status: DEP REF Location: [facility] Disch: ----- ------- SPEC : [id number] RECD: 07/04/23 STATUS: CLOVER SAAVEDRA NUM: [id number] TAMEKA: 07/01/[address]: Lora Wise [facility] ENTERED: 07/04/23 SP TYPE: Pap Smr OTHR DR: ORDERED: Pap Smear Interpretation Satisfactory for evaluation. No endocervical cells seen. Cytolysis noted. Negative for intraepithelial lesion or malignancy. HPV mRNA E6/E7: NOT DETECTED This assay detects E6/E7 viral messenger RNA (mRNA) from 14 high-risk HPV types (16, 18, 31, 33, 35, 39, 45, 51, 52, 56, 58, 59, 66, 68) HPV testing performed by [employer], [place], [place]. See reference laboratory portion of the EMR for entire report. Clinical Information LMP: Postmenopausal Previous PAP test: Unknown date/findings Material Received ThinPrep-Vaginal/Cervical ----- ------- Signed (signature on file) JEROME Jimenez (ASCP) 07/12/23 0930 ----- ------- END OF REPORT [facility] WAREHOUSE CLERK LAB CYTOLOGY ORDERABLES Final Result [facility] [address] [place] [phone] [phone] from Last 3 Months or Most Recently Relevant to Health Maintenance Insurance [facility] STANDARD Care Teams Truck Driver Teamster Relationship Specialty Start Date End Date Jayda Patiño MD [address] [place] [phone] PCP - General Family Medicine 04/05/19
--- OUTSIDE RECORDS SUMMARY | 2025-01-29 15:09 | XMS_ITS | Encounter Summary ---
Author Organization [employer] Address [address] [place] [address] 7 [place] [address] Care Team Providers Care Refueling Rampman Name Role Phone Jayda Patiño MD Primary Care Provide r Reason for Visit * Reason Comments Med Refill Encounter Details Date Type Department Care Team (Late Contact Info) Description 12/04/2022 Refill [facility] [address] [place] [address] Jayda Patiño MD [address] [place] [address] Gastro-esophageal reflux disease without esophagitis Social History [...] Description 03/29/2025 1:00 PM EST Office Visit [facility] OPT[facility] [address] [place] [address] Cain, Shama, OD [address] [place] [address] documented as of this encounter Visit Diagnoses Diagnosis Gastro-esophageal reflux disease without esophagitis documented in this encounter Additional Health Concerns Assessment Noted Time PHQ-9 Depression Total Score: 14 023 1:24 PM EDT documented as of this encounter Care Teams Refueling Rampman Relationship Specialty Start Date End Date Jayda Patiño MD [address] [place] [address] PCP - General Family Medicine 04/05/19 documented as of this encounter
--- OUTSIDE RECORDS SUMMARY | 2025-01-29 15:09 | XMS_ITS | Encounter Summary ---
Author Organization [employer] Address [address] [facility] [address]t [place] [address] Care Team Providers Care Reception Clerk Name Role Phone Jayda Patiño MD Primary Care Provide r Reason for Visit * Reason Comments Med Refill Encounter Details Date Type Department Care Team ([facility] st Contact Info) Description 07/10/2024 Refill [facility] [address] [place] [address] Jayda Patiño MD [address] [place] [address] Hyperlipidemia, unspecified hyperlipidemia type; Hypertension, unspecified type; [...] Description 03/29/2025 1:00 PM EST Office Visit [facility] OPT[facility]ETRY [address] [place] [address] Shama Barlow, OD [address] [place] [address] documented as of this encounter Visit Diagnoses Diagnosis Hyperlipidemia, unspecified hyperlipidemia type Hypertension, unspecified type Chronic migraine without aura without status migrainosus, not intractable documented in this encounter Additional Health Concerns Assessment Noted Time PHQ-9 Depression Total Score: 14 024 10:05 AM EST documented as of this encounter Care Teams Reception Clerk Relationship Specialty Start Date End Date Jayda Patiño MD [address] [place] [address] PCP - General Family Medicine 04/05/19 documented as of this encounter
--- OUTSIDE RECORDS SUMMARY | 2025-01-29 15:09 | XMS_ITS | Encounter Summary ---
Author Organization [employer] Address [address] [facility] 7t [place] [address] Care Team Providers Care Power Crane Operator Name Role Phone Jayda Patiño MD Primary Care Provide r Reason for Visit * Reason Comments Med Refill Encounter Details Date Type Department Care Team ([facility] st Contact Info) Description 08/22/2024 Refill [facility] MED[facility] [address] [place] [address] Jayda Patiño MD [address] [place] [address] Pain of left heel Social History Tobacco [...] 1:00 PM EST Office Visit [facility] OPTOMETRY [address] [place] [address] Cain, Shama, OD [address] [place] [address] documented as of this encounter Visit Diagnoses Diagnosis Pain of left heel documented in this encounter Additional Health Concerns Assessment Noted Time PHQ-9 Depression Total Score: 0 07/13/19 25 1:37 PM EDT documented as of this encounter Care Teams Power Crane Operator Relationship Specialty Start Date End Date Jayda Patiño MD [address] [place] [address] PCP - General Family Medicine 04/05/19 documented as of this encounter
--- OUTSIDE RECORDS SUMMARY | 2025-01-29 15:09 | XMS_ITS | Encounter Summary ---
Author Organization [employer] [facility] Address [address] [place] [address] 7 [place] [address] Care Team Providers Care Gel Coat Sprayer Name Role Phone Jayda Patiño MD Primary Care Provide r Reason for Visit * Reason Comments Med Refill Encounter Details Date Type Department Care Team (Late Contact Info) Description 08/13/2022 Refill [facility] MEDICINE 230 [place] [address] Lissette White MD 230 [place] [address] Chronic rhinitis Social History Tobacco Use Types [...] Description 03/29/2025 1:00 PM EST Office Visit [facility] OPTOMETRY [address] [place] [address] Shama Barlow, OD 230 [place] [address] documented as of this encounter Visit Diagnoses Diagnosis Chronic rhinitis documented in this encounter Care Teams Gel Coat Sprayer Relationship Specialty Start Date End Date Jayda Patiño MD 230 [place] [address] PCP - General Family Medicine 04/05/19 documented as of this encounter
--- OUTSIDE RECORDS SUMMARY | 2025-01-29 15:09 | XMS_ITS | Encounter Summary ---
Author Organization [employer] Address [address] [facility] [address] 7t [place] [address] Care Team Providers Care Data Transcriber Name Role Phone Jayda Patiño MD Primary Care Provide r Encounter Details Date Type Department Care Team (Late st Contact Info) Description 07/24/2024 Orders Only [facility] [address] [place] [address] Provider, MD Jennie Social History Tobacco Use [...] Description 03/29/2025 1:00 PM EST Office Visit [facility] OPTOMETRY [address] [place], [place] [id number] Cain, Shama, OD 230 [place] [address] documented as of this encounter Procedures Procedure [...] documented as of this encounter Care Teams Data Transcriber Relationship Specialty Start Date End Date Jayda Patiño MD 230 [place] [address] PCP - General Family Medicine 04/05/19 documented as of this encounter
--- OUTSIDE RECORDS SUMMARY | 2025-01-29 15:09 | XMS_ITS | Encounter Summary ---
Author Organization [employer] Address [address] [place] [address] 7t [place] [address] Care Team Providers Care Crop Grain Or Livestock Farmer Name Role Phone Jayda Patiño MD Primary Care Provide r Reason for Visit * Reason Comments Med Refill Encounter Details Date Type Department Care Team ([facility] Contact Info) Description 07/30/2022 Refill [facility] MEDICINE 230 [place] [address] Lia Edwards FNP 505 [place] [address] Chronic right shoulder pain Social History Tobacco [...] [facility] [address] [place] [address] Shama Barlow, OD 230 [place] [address] documented as of this encounter Visit Diagnoses Diagnosis Chronic right shoulder pain Pain in joint, shoulder region documented in this encounter Care Teams Crop Grain Or Livestock Farmer Relationship Specialty Start Date End Date Jayda Patiño MD 230 [place] [address] PCP - General Family Medicine 04/05/19 documented as of this encounter
--- OUTSIDE RECORDS SUMMARY | 2025-01-29 15:09 | XMS_ITS | Encounter Summary ---
Author Organization [employer] Address [address] [facility] 7t [place] [address] Care Team Providers Care Hospital Chief Executive Officer Name Role Phone Jayda Patiño MD Primary Care Provide r Reason for Visit * Reason Comments Med Refill Encounter Details Date Type Department Care Team ([facility] st Contact Info) Description 10/12/2024 Refill [facility] MEDICINE 230 [place] [address] Celena Farias DO 230 [place] [address] Polyarthralgia Social History Tobacco Use Types Packs/Day [...] 1:00 PM EST Office Visit [facility] OPTOMETRY [address] [place] [address] Cain, Shama, OD 230 [place] [address] documented as of this encounter Visit Diagnoses Diagnosis Polyarthralgia Pain in joint, multiple sites documented in this encounter Additional Health Concerns Assessment Noted Time PHQ-9 Depression Total Score: 0 07/13/19 25 1:37 PM EDT documented as of this encounter Care Teams Hospital Chief Executive Officer Relationship Specialty Start Date End Date Jayda Patiño MD 230 [place] [address] PCP - General Family Medicine 04/05/19 documented as of this encounter
--- OUTSIDE RECORDS SUMMARY | 2025-01-29 15:09 | XMS_ITS | Encounter Summary ---
Author Organization [employer] [facility] Address [address] [place] [address] 7 [place] [address] Care Team Providers Care Tower Climber Name Role Phone Jayda Patiño MD Primary Care Provide r Reason for Visit * Reason Comments Med Refill Encounter Details Date Type Department Care Team (Late st Contact Info) Description 05/22/2022 Refill [facility] 230 [place] [address] Celena Farias DO 230 [place] [address] Hypertension, unspecified type Social History Tobacco Use [...] Office Visit [facility] OPTOMETRY [address] [place], [place] [phone] Shama Barlow, OD 230 [place] [address] documented as of this encounter Visit Diagnoses Diagnosis Hypertension, unspecified type documented in this encounter Care Teams Tower Climber Relationship Specialty Start Date End Date Jayda Patiño MD 230 [place] [address] PCP - General Family Medicine 04/05/19 documented as of this encounter
--- OUTSIDE RECORDS SUMMARY | 2025-01-29 15:09 | XMS_ITS | Encounter Summary ---
Author Organization [facility] Address [address] [place] [address] 7t [place] [address] Care Team Providers Care Telecommunication Lines Repairer Name Role Phone Jayda Patiño MD Primary Care Provide r Reason for Visit * Reason Comments Med Refill Encounter Details Date Type Department Care Team ([facility] Contact Info) Description 09/25/[address] [facility] MEDICINE [address] [place] [address] Jayda Patiño MD 230 [place] [address] Chronic right shoulder pain Social History Tobacco [...] Upcoming Encounters Date Type Department Care Team ([facility] Contact Info) Description 03/29/2025 1:00 PM EST Office Visit [facility] OPTOMETRY 267 [place] [address] Cain, Shama, OD 230 [place], [place] [id number] documented as of this encounter Visit Diagnoses Diagnosis Chronic right shoulder pain Pain in joint, shoulder region documented in this encounter Additional Health Concerns Assessment Noted Time PHQ-9 Depression Total Score: 14 023 1:24 PM EDT documented as of this encounter Care Teams Telecommunication Lines Repairer Relationship Specialty Start Date End Date Jayda Patiño MD 230 [place] [address] PCP - General Family Medicine 04/05/19 documented as of this encounter
--- OUTSIDE RECORDS SUMMARY | 2025-01-29 15:09 | XMS_ITS | Encounter Summary ---
Author Organization [employer] Address [address] [place] [address] 7t [place] [address] Care Team Providers Care Beach Attendant Name Role Phone Jayda Patiño MD Primary Care Provide r Reason for Visit * Reason Comments Med Refill Encounter Details Date Type Department Care Team ([facility] Contact Info) Description 05/27/[address] [facility] MEDICINE 230 [place] [address] Lia Edwards FNP 505 [place] [address] Chronic right shoulder pain Social History Tobacco [...] Description 03/29/2025 1:00 PM EST Office Visit [facility] OPTOMETRY [address] [place] [address] Shama Barlow, OD 230 [place] [address] documented as of this encounter Visit Diagnoses Diagnosis Chronic right shoulder pain Pain in joint, shoulder region documented in this encounter Care Teams Beach Attendant Relationship Specialty Start Date End Date Jayda Patiño MD 230 [place] [address] PCP - General Family Medicine 04/05/19 documented as of this encounter
--- OUTSIDE RECORDS SUMMARY | 2025-01-29 15:09 | XMS_ITS | Encounter Summary ---
Author Organization [employer] [facility] Address [address] [place] [address] 7 [place] [address] Care Team Providers Care Electrophysiology Nurse Practitioner Name Role Phone Jayda Patiño MD Primary Care Provide r Reason for Visit * Reason Comments Med Refill Encounter Details Date Type Department Care Team (Late Contact Info) Description 06/09/2022 Refill [facility] MEDICINE 230 [place] [address] Lissette White MD 230 [place] [address] Chronic rhinitis Social History Tobacco Use Types [...] Description 03/29/2025 1:00 PM EST Office Visit [facility] OPTOMETRY [address] [place] [address] Shama Barlow, OD 230 [place] [address] documented as of this encounter Visit Diagnoses Diagnosis Chronic rhinitis documented in this encounter Care Teams Electrophysiology Nurse Practitioner Relationship Specialty Start Date End Date Jayda Patiño MD 230 [place] [address] PCP - General Family Medicine 04/05/19 documented as of this encounter
--- OUTSIDE RECORDS SUMMARY | 2025-01-29 15:09 | XMS_ITS | Encounter Summary ---
Author Organization [employer] Address [address] [facility] 7t [place] [address] Care Team Providers Care Desktop Architect Name Role Phone Jayda Patiño MD Primary Care Provide r Reason for Visit * Reason Comments Med Refill Encounter Details Date Type Department Care Team ([facility] st Contact Info) Description 11/12/2024 Refill [facility] MEDICINE 230 [place] [address] Jayda Patiño MD 230 [place] [address] Polyarthralgia Social History Tobacco Use Types Packs/Day [...] 03/29/2025 1:00 PM EST Office Visit [facility] OPTOMETRY 267 [place] [address] Cain, Shama, OD 230 [place] [address] documented as of this encounter Visit Diagnoses Diagnosis Polyarthralgia Pain in joint, multiple sites documented in this encounter Additional Health Concerns Assessment Noted Time PHQ-9 Depression Total Score: 0 07/13/19 25 1:37 PM EDT documented as of this encounter Care Teams Desktop Architect Relationship Specialty Start Date End Date Jayda Patiño MD 230 [place] [address] PCP - General Family Medicine 04/05/19 documented as of this encounter
--- OUTSIDE RECORDS SUMMARY | 2025-01-29 15:09 | XMS_ITS | Encounter Summary ---
Author Organization [employer] Address [address] [place] [address] 7t [place] [address] Care Team Providers Care Customer Service Dispatcher Name Role Phone Jayda Patiño MD Primary Care Provide r Reason for Visit * Reason Comments Med Refill Encounter Details Date Type Department Care Team ([facility] Contact Info) Description 07/02/2022 Refill [facility] MEDICINE 230 [place] [address] Lia Edwards FNP 505 [place] [address] Chronic right shoulder pain Social History Tobacco [...] Description 03/29/2025 1:00 PM EST Office Visit [facility] OPTOMETRY [address] [place] [address] Shama Barlow, OD 230 [place] [address] documented as of this encounter Visit Diagnoses Diagnosis Chronic right shoulder pain Pain in joint, shoulder region documented in this encounter Care Teams Customer Service Dispatcher Relationship Specialty Start Date End Date Jayda Patiño MD 230 [place] [address] PCP - General Family Medicine 04/05/19 documented as of this encounter
--- OUTSIDE RECORDS SUMMARY | 2025-01-29 15:09 | XMS_ITS | Encounter Summary ---
Author Organization [employer] [facility] Address [address] [place] [address] 7 [place] [address] Care Team Providers Care Metal Coater Operator Name Role Phone Jayda Patiño MD Primary Care Provide r Reason for Visit * Reason Comments Med Refill Encounter Details Date Type Department Care Team (Late Contact Info) Description 08/30/2022 Refill [facility] MEDICINE 230 [place] [address] Jayda Patiño MD 230 [place] [address] Chronic right shoulder pain Social History Tobacco [...] Description 03/29/2025 1:00 PM EST Office Visit [facility] OPTOMETRY 267 [place] [address] Shama Barlow, EMI 230 [place] [address] documented as of this encounter Visit Diagnoses Diagnosis Chronic right shoulder pain Pain in joint, shoulder region documented in this encounter Care Teams Metal Coater Operator Relationship Specialty Start Date End Date Jayda Patiño MD 230 [place] [address] PCP - General Family Medicine 04/05/19 documented as of this encounter
--- OUTSIDE RECORDS SUMMARY | 2025-01-29 15:09 | XMS_ITS | Encounter Summary ---
Author Organization [employer] Address [address] [facility] 7t [place] [address] Care Team Providers Care Anime Artist Name Role Phone Jayda Patiño MD Primary Care Provide r Reason for Visit * Reason Comments Med Refill Encounter Details Date Type Department Care Team ([facility] st Contact Info) Description 01/13/2025 Refill [facility] MEDICINE 230 [place] [address] Celena Farias DO 230 [place] [address] Chronic rhinitis Social History Tobacco Use Types [...] Description 03/29/2025 1:00 PM EST Office Visit [facility] OPTOMETRY [address] [place] [address] Cain, Shama, OD 230 [place] [address] documented as of this encounter Visit Diagnoses Diagnosis Chronic rhinitis documented in this encounter Additional Health Concerns Assessment Noted Time PHQ-9 Depression Total Score: 0 07/13/19 25 1:37 PM EDT documented as of this encounter Care Teams Anime Artist Relationship Specialty Start Date End Date Jayda Patiño MD 230 [place] [address] PCP - General Family Medicine 04/05/19 documented as of this encounter
--- OUTSIDE RECORDS SUMMARY | 2025-01-29 15:09 | XMS_ITS | Encounter Summary ---
Author Organization [employer] Address [address] [facility] [address] 7t [place] [address] Care Team Providers Care Weight Analyst Name Role Phone Jayda Patiño MD Primary Care Provide r Reason for Visit * Reason Comments Med Refill Encounter Details Date Type Department Care Team ([facility] st Contact Info) Description 01/13/2025 Refill [facility] 505 [place], [place] [phone] [facility] 230 [place] [address] Vitamin D deficiency Social History Tobacco Use [...] Description 03/29/2025 1:00 PM EST Office Visit [facility] OPTOMETRY [address] [place] [address] Cain, Shama, OD 230 [place] [address] documented as of this encounter Visit Diagnoses Diagnosis Vitamin D deficiency documented in this encounter Additional Health Concerns Assessment Noted Time PHQ-9 Depression Total Score: 0 07/13/19 25 1:37 PM EDT documented as of this encounter Care Teams Weight Analyst Relationship Specialty Start Date End Date Jayda Patiño MD 230 [place] [address] PCP - General Family Medicine 04/05/19 documented as of this encounter
--- OUTSIDE RECORDS SUMMARY | 2025-01-29 15:09 | XMS_ITS | Encounter Summary ---
Author Organization [employer] Address [address] [place] [address] 7t [place] [address] Care Team Providers Care Surgical Supply Assistant Name Role Phone Jayda Patiño MD Primary Care Provide r Reason for Visit * Reason Comments Med Refill Encounter Details Date Type Department Care Team ([facility] st Contact Info) Description 09/06/2022 Refill [facility] MEDICINE 230 [place] [address] Jayda Patiño MD 230 [place] [address] Chronic right shoulder pain Social History Tobacco [...] Visit [facility] OPTOMETRY [address] [place] [address] Shama Barlow, OD 230 [place] [address] documented as of this encounter Visit Diagnoses Diagnosis Chronic right shoulder pain Pain in joint, shoulder region documented in this encounter Additional Health Concerns Assessment Noted Time PHQ-9 Depression Total Score: 14 023 1:24 PM EDT documented as of this encounter Care Teams Surgical Supply Assistant Relationship Specialty Start Date End Date Jayda Patiño MD 230 [place] [address] PCP - General Family Medicine 04/05/19 documented as of this encounter
--- OUTSIDE RECORDS SUMMARY | 2025-01-29 15:09 | XMS_ITS | Encounter Summary ---
Author Organization [employer] Address [address] [facility] 7t [place] [address] Care Team Providers Care Sponge Packer Name Role Phone Jayda Patiño MD Primary Care Provide r Reason for Visit * Reason Comments Med Refill Encounter Details Date Type Department Care Team ([facility] st Contact Info) Description 07/07/2023 Refill [facility] MEDICINE 230 [place] [address] Jayda Patiño MD 230 [place] [address] Health care maintenance Social History Tobacco Use [...] Description 03/29/2025 1:00 PM EST Office Visit [facility] OPTOMETRY 267 [place], [place] [phone] Cain, Shama, OD 230 [place] [address] documented as of this encounter Visit Diagnoses Diagnosis Health care maintenance documented in this encounter Additional Health Concerns Assessment Noted Time PHQ-9 Depression Total Score: 14 024 10:05 AM EST documented as of this encounter Care Teams Sponge Packer Relationship Specialty Start Date End Date Jayda Patiño MD 230 [place], [place] [phone] PCP - General Family Medicine 04/05/19 documented as of this encounter
--- OUTSIDE RECORDS SUMMARY | 2025-01-29 15:09 | XMS_ITS | Encounter Summary ---
Author Organization [employer] Address [address] [facility] 7t [place] [address] Care Team Providers Care Parts Coordinator Name Role Phone Jayda Patiño MD Primary Care Provide r Reason for Visit * Reason Comments Med Refill Encounter Details Date Type Department Care Team ([facility] st Contact Info) Description 01/13/2025 Refill [facility] MEDICINE 230 [place] [address] Jayda Patiño MD 230 [place] [address] Chronic migraine without aura without status migrainosus, [...] 1:00 PM EST Office Visit [facility] OPTOMETRY 267 [place] [address] Shama Barlow, OD 230 [place] [address] documented as of this encounter Visit Diagnoses Diagnosis Chronic migraine without aura without status migrainosus, not intractable Hyperlipidemia, unspecified hyperlipidemia type Polyarthralgia Pain in joint, multiple sites Health care maintenance documented in this encounter Additional Health Concerns Assessment Noted Time PHQ-9 Depression Total Score: 0 07/13/19 25 1:37 PM EDT documented as of this encounter Care Teams Parts Coordinator Relationship Specialty Start Date End Date Jayda Patiño MD 230 [place] [address] PCP - General Family Medicine 04/05/19 documented as of this encounter
--- OUTSIDE RECORDS SUMMARY | 2025-01-29 15:09 | XMS_ITS | Encounter Summary ---
Author Organization [employer] Address [address] [facility] 7t [place] [address] Care Team Providers Care Dietetics Teacher Name Role Phone Jayda Patiño MD Primary Care Provide r Reason for Visit * Reason Comments Med Refill Encounter Details Date Type Department Care Team ([facility] st Contact Info) Description 07/26/2024 Refill [facility] MEDICINE 230 [place] [address] Jayda Patiño MD 230 [place] [address] Class 3 severe obesity due to excess [...] 03/29/2025 1:00 PM EST Office Visit [facility] OPTOMETRY [address] [place] [address] Shama Barlow, OD 230 [place] [address] documented as of this encounter Visit Diagnoses Diagnosis Class 3 severe obesity due to excess calories with serious comorbidity and body mass index (BMI) of 40.0 to 44.9 in adult (HCC) documented in this encounter Additional Health Concerns Assessment Noted Time PHQ-9 Depression Total Score: 0 07/13/19 25 1:37 PM EDT documented as of this encounter Care Teams Dietetics Teacher Relationship Specialty Start Date End Date Jayda Patiño MD 230 [place] [address] PCP - General Family Medicine 04/05/19 documented as of this encounter
--- OUTSIDE RECORDS SUMMARY | 2025-01-29 15:09 | XMS_ITS | Encounter Summary ---
Author Organization [employer] [facility] Address [address] [place] [address] 7 [place] [address] Care Team Providers Care Rehab/Pre Vocational Counselor Name Role Phone Jayda Patiño MD Primary Care Provide r Reason for Visit * Reason Comments Med Refill Encounter Details Date Type Department Care Team (Late Contact Info) Description 07/02/2022 Refill [facility] MEDICINE 230 [place] [address] Lissette White MD 230 [place] [address] Chronic rhinitis Social History Tobacco Use Types [...] Description 03/29/2025 1:00 PM EST Office Visit [facility] OPTOMETRY [address] [place] [address] Shama Barlow, OD 230 [place] [address] documented as of this encounter Visit Diagnoses Diagnosis Chronic rhinitis documented in this encounter Care Teams Rehab/Pre Vocational Counselor Relationship Specialty Start Date End Date Jayda Patiño MD 230 [place] [address] PCP - General Family Medicine 04/05/19 documented as of this encounter
--- OUTSIDE RECORDS SUMMARY | 2025-01-29 15:09 | XMS_ITS | Encounter Summary ---
Author Organization [employer] Address [address] [facility] 7t [place] [address] Care Team Providers Care Micro Paleontologist Name Role Phone Jayda Patiño MD Primary Care Provide r Reason for Visit * Reason Onset Date Comments Med Refill 10/08/2024 Encounter Details Date Type Department Care Team (Late st Contact Info) Description 10/08/2024 Refill [facility] MEDICINE 230 [place] [address] Jayda Patiño MD 230 [place] [address] Health care maintenance Social History Tobacco Use [...] PM EST Office Visit [facility] [address] [place] [address] Cain, Shama, OD 230 [place] [address] documented as of this encounter Visit Diagnoses Diagnosis Health care maintenance documented in this encounter Additional Health Concerns Assessment Noted Time PHQ-9 Depression Total Score: 0 07/13/19 25 1:37 PM EDT documented as of this encounter Care Teams Micro Paleontologist Relationship Specialty Start Date End Date Jayda Patiño MD 230 [place] [address] PCP - General Family Medicine 04/05/19 documented as of this encounter
--- OUTSIDE RECORDS SUMMARY | 2025-01-29 15:09 | XMS_ITS | Encounter Summary ---
Author Organization [employer] Address [address] [place] [address] 7 [place] [address] Care Team Providers Care Car Barn Laborer Name Role Phone Jayda Patiño MD Primary Care Provide r Reason for Visit * Reason Comments Med Refill Encounter Details Date Type Department Care Team (Late st Contact Info) Description 12/31/2022 Refill [facility] MEDICINE 230 [place] [address] Adela Denney FNP Health care maintenance Social [...] Description 03/29/2025 1:00 PM EST Office Visit [facility] OPTOMETRY [address] [place] [address] Shama Barlow, OD 230 [place] [address] documented as of this encounter Visit Diagnoses Diagnosis Health care maintenance documented in this encounter Additional Health Concerns Assessment Noted Time PHQ-9 Depression Total Score: 14 023 1:24 PM EDT documented as of this encounter Care Teams Car Barn Laborer Relationship Specialty Start Date End Date Jayda Patiño MD [address] [place] [address] PCP - General Family Medicine 04/05/19 documented as of this encounter
--- OUTSIDE RECORDS SUMMARY | 2025-01-29 15:09 | XMS_ITS | Encounter Summary ---
Author Organization [employer] Address [address] [facility] 7t [place] [address] Care Team Providers Care Manager Education Name Role Phone Jayda Patiño MD Primary Care Provide r Reason for Visit * Reason Comments Med Refill Encounter Details Date Type Department Care Team ([facility] st Contact Info) Description 11/05/2024 Refill [facility] MEDICINE [address] [place] [address] Jayda Patiño MD 230 [place] [address] Polyarthralgia; Migraine without aura, not refractory Social [...] PM EST Office Visit C OPTOMETRY [address] [place] [address] Cain, Shama, OD 230 [place] [address] documented as of this encounter Visit Diagnoses Diagnosis Polyarthralgia Pain in joint, multiple sites Migraine without aura, not refractory documented in this encounter Additional Health Concerns Assessment Noted Time PHQ-9 Depression Total Score: 0 07/13/19 25 1:37 PM EDT documented as of this encounter Care Teams Manager Education Relationship Specialty Start Date End Date Jayda Patiño MD 230 [place] [address] PCP - General Family Medicine 04/05/19 documented as of this encounter
--- OUTSIDE RECORDS SUMMARY | 2025-01-29 15:09 | XMS_ITS | Encounter Summary ---
Author Organization [employer] Address [address] [facility] 7t [place] [address] Care Team Providers Care Pathologist Name Role Phone Jayda Patiño MD Primary Care Provide r Reason for Visit * Reason Comments Med Refill Encounter Details Date Type Department Care Team ([facility] st Contact Info) Description 04/29/[address] [facility] MEDICINE 230 [place], [place] [phone] Marilee Whittaker MD 230 [place], [place] [phone] Hyperlipidemia, unspecified hyperlipidemia type; Chronic migraine without [...] PM EST Office Visit [facility] OPTOMETRY [address] [place], [place] [phone] Cain, Shama, OD 230 [place] [address] documented as of this encounter Visit Diagnoses Diagnosis Hyperlipidemia, unspecified hyperlipidemia type Chronic migraine without aura without status migrainosus, not intractable Chronic rhinitis documented in this encounter Additional Health Concerns Assessment Noted Time PHQ-9 Depression Total Score: 14 023 1:24 PM EDT documented as of this encounter Care Teams Pathologist Relationship Specialty Start Date End Date Jayda Patiño MD [address] [place], [place] [phone] PCP - General Family Medicine 04/05/19 documented as of this encounter
--- OUTSIDE RECORDS SUMMARY | 2025-01-29 15:09 | XMS_ITS | Encounter Summary ---
Author Organization [employer] Address [address] [facility] 7t [place] [address] Care Team Providers Care Creosoting Engineer Name Role Phone Jayda Patiño MD Primary Care Provide r Reason for Visit * Reason Onset Date Comments Med Refill 10/08/2024 Encounter Details Date Type Department Care Team (Late st Contact Info) Description 10/08/2024 Refill [facility] MEDICINE 230 [place] [address] Celena Farias, [address] [place] [address] Chronic rhinitis Social History Tobacco Use Types [...] EST Office Visit [facility] OPTOMETRY [address] [place] [address] Cain, Shama, OD 230 [place] [address] documented as of this encounter Visit Diagnoses Diagnosis Chronic rhinitis documented in this encounter Additional Health Concerns Assessment Noted Time PHQ-9 Depression Total Score: 0 07/13/19 25 1:37 PM EDT documented as of this encounter Care Teams Creosoting Engineer Relationship Specialty Start Date End Date Jayda Patiño MD [address] [place] [address] PCP - General Family Medicine 04/05/19 documented as of this encounter
--- OUTSIDE RECORDS SUMMARY | 2025-01-29 15:09 | XMS_ITS | Encounter Summary ---
Author Organization [employer] Address [address] [facility] [address] 7t [place] [address] Care Team Providers Care Binder Caser Name Role Phone Jayda Patiño MD Primary Care Provide r Reason for Visit * Reason Comments Med Refill Encounter Details Date Type Department Care Team ([facility] st Contact Info) Description 10/02/2024 Refill [facility] [address] [place] [address] Jayda Patiño MD 230 [place] [address] Chronic rhinitis Social History Tobacco Use Types [...] Description 03/29/2025 1:00 PM EST Office Visit [facility] OPTOMETRY [address] [place] [address] Cain, Shama, OD 230 [place] [address] documented as of this encounter Visit Diagnoses Diagnosis Chronic rhinitis documented in this encounter Additional Health Concerns Assessment Noted Time PHQ-9 Depression Total Score: 0 07/13/19 25 1:37 PM EDT documented as of this encounter Care Teams Binder Caser Relationship Specialty Start Date End Date Jayda Patiño MD 230 [place] [address] PCP - General Family Medicine 04/05/19 documented as of this encounter
--- OUTSIDE RECORDS SUMMARY | 2025-01-29 15:09 | XMS_ITS | Encounter Summary ---
Author Organization [employer] Address 75 [facility] 7t [place] [address] Care Team Providers Care Cabinetmaker Helper Name Role Phone Jayda Patiño MD Primary Care Provide r Reason for Visit * Reason Comments Med Refill Encounter Details Date Type Department Care Team ([facility] st Contact Info) Description 04/29/2023 Refill [facility] MEDICINE [address] [place], [place] [phone] Name, MD Lorenzo 230 [place] [address] Hypertension, unspecified type Social History Tobacco Use [...] EST Office Visit [facility] OPTOMETRY [address] [place], [place] [phone] Shama Barlow, OD 230 [place] [address] documented as of this encounter Visit Diagnoses Diagnosis Hypertension, unspecified type documented in this encounter Additional Health Concerns Assessment Noted Time PHQ-9 Depression Total Score: 14 023 1:24 PM EDT documented as of this encounter Care Teams Cabinetmaker Helper Relationship Specialty Start Date End Date Jayda Patiño MD 230 [place] [address] PCP - General Family Medicine 04/05/19 documented as of this encounter
--- OUTSIDE RECORDS SUMMARY | 2025-01-29 15:09 | XMS_ITS | Encounter Summary ---
Author Organization [employer] Address [address] [facility] 7t [place] [address] Care Team Providers Care Junk Dealer Name Role Phone Jayda Patiño MD Primary Care Provide r Reason for Visit * Reason Comments Med Refill Encounter Details Date Type Department Care Team ([facility] st Contact Info) Description 03/26/2023 Refill [facility] MEDICINE 230 [place], [place] [phone] Name, MD Lorenzo 230 [place] [address] Hypertension, unspecified type Social History Tobacco Use [...] Description 03/29/2025 1:00 PM EST Office Visit [facility] OPTOMETRY [address] [place], [place] [phone] Shama Barlow, OD 230 [place] [address] documented as of this encounter Visit Diagnoses Diagnosis Hypertension, unspecified type documented in this encounter Additional Health Concerns Assessment Noted Time PHQ-9 Depression Total Score: 14 023 1:24 PM EDT documented as of this encounter Care Teams Junk Dealer Relationship Specialty Start Date End Date Jayda Patiño MD 230 [place] [address] PCP - General Family Medicine 04/05/19 documented as of this encounter
--- OUTSIDE RECORDS SUMMARY | 2025-01-29 15:09 | XMS_ITS | Encounter Summary ---
Author Organization [employer] Address 75 [facility] 7t [place] [address] Care Team Providers Care Business Education Professor Name Role Phone Jayda Patiño MD Primary Care Provide r Reason for Visit * Reason Comments Med Refill Encounter Details Date Type Department Care Team ([facility] st Contact Info) Description 09/09/2024 Refill [facility] MEDICINE [address] [place] [address] Jayda Patiño MD 230 [place] [address] Chronic bilateral low back pain without sciatica [...] EST Office Visit C OPTOMETRY [address] [place] [address] Cain, Shama, OD [address] [place] [address] documented as of this encounter Visit Diagnoses Diagnosis Chronic bilateral low back pain without sciatica documented in this encounter Additional Health Concerns Assessment Noted Time PHQ-9 Depression Total Score: 0 07/13/19 25 1:37 PM EDT documented as of this encounter Care Teams Business Education Professor Relationship Specialty Start Date End Date Jayda Patiño MD 230 [place] [address] PCP - General Family Medicine 04/05/19 documented as of this encounter
--- OUTSIDE RECORDS SUMMARY | 2025-01-29 15:09 | XMS_ITS | Encounter Summary ---
Author Organization [employer] Address [address] [place] [address] 7 [place] [address] Care Team Providers Care Information Security Architect Name Role Phone Jayda Patiño MD Primary Care Provide r Reason for Visit * Reason Comments Med Refill Encounter Details Date Type Department Care Team (Late st Contact Info) Description 10/22/2022 Refill [facility] 230 [place] [address] [facility] [address] [place] [address] Hypertension, unspecified type Social History Tobacco Use [...] Office Visit [facility] OPTOMETRY [address] [place] [address] Cain, Shama, OD 230 [place] [address] documented as of this encounter Visit Diagnoses Diagnosis Hypertension, unspecified type documented in this encounter Additional Health Concerns Assessment Noted Time PHQ-9 Depression Total Score: 14 023 1:24 PM EDT documented as of this encounter Care Teams Information Security Architect Relationship Specialty Start Date End Date Jayda Patiño MD [address] [place] [address] PCP - General Family Medicine 04/05/19 documented as of this encounter
== END 2025-01-29 12:11 | disposition home or self-care (01) ==
LOC: HO.MAMMO 12:10
PROVIDERS: PCP Internal Medicine; Visit Provider Internal Medicine
DX: Z12.31 Encounter for screening mammogram for malignant neoplasm of breast (principal)
CPT/HCPCS: 77063; 77067

== ENCOUNTER → 2025-01-29 12:15 | Outpatient (BNV) | payer MEDICAID, SELFPAY | PROVIDERS: PCP Internal Medicine; Visit Provider Internal Medicine | DX: Z12.31 Encounter for screening mammogram for malignant neoplasm of breast (principal) | CPT/HCPCS: 77063; 77067 ==

== ENCOUNTER → 2025-02-22 20:30 | Outpatient (REF) | payer MEDICAID, SELFPAY ==
--- OUTSIDE RECORDS SUMMARY | 2025-02-22 21:10 | XMS_ITS | Encounter Summary ---
Author Organization [employer] Address 75 [facility] 7t [place] [address] Care Team Providers Care Rolled Materials Worker Name Role Phone Jayda Patiño MD Primary Care Provide r Reason for Visit * Reason Comments Med Refill Encounter Details Date Type Department Care Team ([facility] st Contact Info) Description 04/29/2023 Refill [facility] MEDICINE 230 [place], [place] [phone] Name, MD Lorenzo 230 [place] [address] Hypertension, unspecified type Social History Tobacco Use [...] Description 03/29/2025 1:00 PM EST Office Visit [facility] OPTOMETRY [address] [place], [place] [phone] Shama Barlow, OD 230 [place] [address] documented as of this encounter Visit Diagnoses Diagnosis Hypertension, unspecified type documented in this encounter Additional Health Concerns Assessment Noted Time PHQ-9 Depression Total Score: 14 023 1:24 PM EDT documented as of this encounter Care Teams Rolled Materials Worker Relationship Specialty Start Date End Date Jayda Patiño MD 230 [place] [address] PCP - General Family Medicine 04/05/19 documented as of this encounter
--- OUTSIDE RECORDS SUMMARY | 2025-02-22 21:10 | XMS_ITS | Encounter Summary ---
Author Organization [employer] Address 75 [facility] 7t [place] [address] Care Team Providers Care Control Clerk Name Role Phone Jayda Patiño MD Primary Care Provide r Reason for Visit * Reason Onset Date Comments Med Refill 02/11/2025 Encounter Details Date Type Department Care Team (Late st Contact Info) Description 02/11/2025 Refill [facility] MEDICINE [address] [place] [address] Jayda Patiño MD 230 [place] [address] Class 3 severe obesity due to excess calories with serious comorbidity and body mass index (BMI) of 40.0 to 44.9 in adult (HCC) Social History Tobacco Use Types Packs/Day Years [...] as of this encounter Miscellaneous Notes * Addendum Note - Jeanne Jimenez RN - 02/20/2025 11:42 AM EDTAddended by: JEANNE JIMENEZ on: 02/20/2025 11:42 AM Modules accepted: Orders * Telephone Encounter - Karolina Tompkins - 02/20/2025 11:04 AM EDT Tc from pt requesting status on PA. Also requesting status on new scrip for ibuprofen 400 MG tablet Contact pt at [phone] Need tool builder * Telephone Encounter - Aida Evangelista RN - 02/15/2025 4:34 PM EDT Message from PA specialist: Current prescription in Chart is , New prescription is needed from provider. Rx pended * Telephone Encounter - Karolina Tompkins - 02/14/2025 12:09 PM EDT Tc fro pt needing a PA for Zepbound * Telephone Encounter - Celena Beach LPN - 02/11/2025 11:39 AM EDT Zepbound was sent to [facility][id number] on 01/09/25 with 2 refills and Ibuprofen was discontinued. * Telephone Encounter - Gabriel Verma - 02/11/2025 11:36 AM EDT TC from pt requesting medication refill. Medications needing refill : Tirzepatide-Weight Management (Zepbound) 5 MG/0.5ML solution auto-injector ibuprofen 400 MG tablet To be sent to: [facility]/pharmacy #[id number] - [address] documented in this encounter Plan of Treatment Upcoming Encounters Date Type Department Care Team ([facility] st Contact Info) Description 03/29/2025 1:00 PM EST Office Visit [facility] OPTOMETRY [address] [place] [address] Shama Barlow, OD 230 [place] [address] documented as of this encounter Visit Diagnoses Diagnosis Class 3 severe obesity due to excess calories with serious comorbidity and body mass index (BMI) of 40.0 to 44.9 in adult (HCC) documented in this encounter Additional Health Concerns Assessment Noted Time PHQ-9 Depression Total Score: 5 01/24/20 25 2:37 PM EDT documented as of this encounter Care Teams Control Clerk Relationship Specialty Start Date End Date Jayda Patiño MD 230 [place] [address] PCP - General Family Medicine 04/05/19 documented as of this encounter
--- OUTSIDE RECORDS SUMMARY | 2025-02-22 21:10 | XMS_ITS | Encounter Summary ---
Author Organization [facility] Address [address] [place] [address] Care Team Providers Care Custom Shoemaker Name Role Phone Community, Pcp Primary Care Provider Jayda Avila MD Primary Care Provide r Unavailable Encounter Details Date Type Department Care Team Description 10/13/2016 Nuclear Medicine Physician Report Medical Records [address] [place] [address] Zay Melton MD Social History Tobacco Use [...] on filedocumented in this encounter Care Teams Custom Shoemaker Relationship Specialty Start Date End Date Community, Pcp PCP - General Internal Medicine 09/23/16 06/15/23 Jayda Rasheed MD PCP - General Internal Medicine 06/16/23 documented as of this encounter
--- OUTSIDE RECORDS SUMMARY | 2025-02-22 21:10 | XMS_ITS | Encounter Summary ---
Author Organization [facility] Address [address] [place] [address] Care Team Providers Care Hardware Trainer Name Role Phone Community, Pcp Primary Care Provider Jayda Avila MD Primary Care Provide r Unavailable Encounter Details Date Type Department Care Team Description 04/22/2017 Supervisor Cook House Report Medical Records [address] [place] [address] Social History Tobacco Use Types Packs/Day Years Used Date Smoking Tobacco: Former Alcohol Use Standard Drinks/Week Comments No 0 (1 standard drink = 0.6 oz pur e alcohol) Sex Assigned at Date Recorded Not on file documented as of this encounter Plan of Treatment Not on file documented as of this encounter Visit Diagnoses Not on filedocumented in this encounter Care Teams Hardware Trainer Relationship Specialty Start Date End Date Community, Pcp PCP - General Internal Medicine 09/23/16 06/15/23 Jadya Rasheed MD PCP - General Internal Medicine 06/16/23 documented as of this encounter
--- OUTSIDE RECORDS SUMMARY | 2025-02-22 21:10 | XMS_ITS | Encounter Summary ---
Author Organization [facility] Address [address] [place] [address] Care Team Providers Care Solar Manufacturer'S Representative Name Role Phone Victor Hugo Rodrigues MD Primary Care Provider Un available Community, Pcp Primary Care Provider Unavailabl e Jayda Rasheed MD Primary Care Provide r Unavailable Encounter Details Date Type Department Care Team Description 01/19/2016 Orders Only Adult Medicine [address] [address] Victor Hugo Rodrigues MD Social History Tobacco [...] on filedocumented in this encounter Care Teams Solar Manufacturer'S Representative Relationship Specialty Start Date End Date Victor Hugo Rodrigues MD PCP - General Internal Medicine 12/22/15 [facility], Pcp PCP - General Internal Medicine 09/23/16 06/15/23 Jayda Rasheed MD PCP - General Internal Medicine 06/16/23 documented as of this encounter
--- OUTSIDE RECORDS SUMMARY | 2025-02-22 21:10 | XMS_ITS | Encounter Summary ---
Author Organization [employer] Address 75 [facility] 7t [place] [address] Care Team Providers Care Infectious Diseases Physician Name Role Phone Jayda Patiño MD Primary Care Provide r Reason for Visit * Reason Comments Med Refill Encounter Details Date Type Department Care Team ([facility] st Contact Info) Description 12/31/2023 Refill [facility] MEDICINE [address] [place], [place] [phone] Marilee Whittaker MD 230 [place], [place] [phone] Chronic migraine without aura without status migrainosus, [...] Description 03/29/2025 1:00 PM EST Office Visit [facility] OPTOMETRY [address] [place], [place] [phone] Shama Barlow, OD 230 [place] [address] documented as of this encounter Visit Diagnoses Diagnosis Chronic migraine without aura without status migrainosus, not intractable documented in this encounter Additional Health Concerns Assessment Noted Time PHQ-9 Depression Total Score: 14 024 10:05 AM EST documented as of this encounter Care Teams Infectious Diseases Physician Relationship Specialty Start Date End Date Jayda Patiño MD [address] [place] [address] PCP - General Family Medicine 04/05/19 documented as of this encounter
--- OUTSIDE RECORDS SUMMARY | 2025-02-22 21:10 | XMS_ITS | Encounter Summary ---
Author Organization [facility] Address [address] [place] [address] Care Team Providers Care Pan Devulcanizer Helper Name Role Phone Victor Hugo Rodrigues MD Primary Care Provider Un available Community, Pcp Primary Care Provider Unavailabl e Jayda Rasheed MD Primary Care Provide r Unavailable Encounter Details Date Type Department Care Team Description 01/15/2016 Release of Information Medical Records [address] [place] [id number] Abstract, Provider Social History Tobacco Use Types [...] on filedocumented in this encounter Care Teams Pan Devulcanizer Helper Relationship Specialty Start Date End Date Victor Hugo Rodrigues MD PCP - General Internal Medicine 12/22/15 Community, Pcp PCP - General Internal Medicine 09/23/16 06/15/23 Jayda Rasheed MD PCP - General Internal Medicine 06/16/23 documented as of this encounter
--- OUTSIDE RECORDS SUMMARY | 2025-02-22 21:10 | XMS_ITS | Encounter Summary ---
Author Organization [email or web address] Address [address] [facility] 7t [place] [address] Care Team Providers Care Load Out Person Name Role Phone Jayda Patiño MD Primary Care Provide r Reason for Visit * Reason Comments Med Refill Encounter Details Date Type Department Care Team ([facility] st Contact Info) Description 07/10/2024 Refill [facility] MEDICINE [address] [place] [address] Jayda Patiño MD [address] [place] [address] Hyperlipidemia, unspecified hyperlipidemia type; Hypertension, unspecified type; [...] Description 03/29/2025 1:00 PM EST Office Visit [facility] OPTOMETRY [address] [place] [address] Shama Barlow, OD [address] [place] [address] documented as of this encounter Visit Diagnoses Diagnosis Hyperlipidemia, unspecified hyperlipidemia type Hypertension, unspecified type Chronic migraine without aura without status migrainosus, not intractable documented in this encounter Additional Health Concerns Assessment Noted Time PHQ-9 Depression Total Score: 14 024 10:05 AM EST documented as of this encounter Care Teams Load Out Person Relationship Specialty Start Date End Date Jayda Patiño MD [address] [place] [address] PCP - General Family Medicine 04/05/19 documented as of this encounter
--- OUTSIDE RECORDS SUMMARY | 2025-02-22 21:10 | XMS_ITS | Encounter Summary ---
Author Organization [employer] [facility] Address [address] [place] [address] 7 [place] [address] Care Team Providers Care Settlement Processor Name Role Phone Jayda Patiño MD Primary Care Provide r Reason for Visit * Reason Comments Med Refill Encounter Details Date Type Department Care Team (Late Contact Info) Description 08/13/2022 Refill [facility] MEDICINE [address] [place] [address] Lissette White MD [address] [place] [address] Chronic rhinitis Social History Tobacco Use Types [...] Visit [facility] OPTOMETRY [address] [place] [address] Shama Barlow, OD [address] [place] [address] documented as of this encounter Visit Diagnoses Diagnosis Chronic rhinitis documented in this encounter Care Teams Settlement Processor Relationship Specialty Start Date End Date Jayda Patiño MD [address] [place] [address] PCP - General Family Medicine 04/05/19 documented as of this encounter
--- OUTSIDE RECORDS SUMMARY | 2025-02-22 21:10 | XMS_ITS | Encounter Summary ---
Author Organization [employer] Address 75 [facility] 7t [place] [address] Care Team Providers Care Juvenile Detention Officer Name Role Phone Jayda Patiño MD Primary Care Provide r Encounter Details Date Type Department Care Team ([facility] st Contact Info) Description 02/02/2023 Abstract [facility] MEDICINE [address] [place] [address] Jayda Patiño MD [address] [place] [address] Social History Tobacco Use Types Packs/Day Years [...] Description 03/29/2025 1:00 PM EST Office Visit [facility] OPTOMETRY [address] [place], [place] [phone] Cain, Shama, OD 230 [place] [address] documented as of this encounter Procedures Procedure [...] documented as of this encounter Care Teams Juvenile Detention Officer Relationship Specialty Start Date End Date Jayda Patiño MD [address] [place], [place] [phone] PCP - General Family Medicine 04/05/19 documented as of this encounter
--- OUTSIDE RECORDS SUMMARY | 2025-02-22 21:10 | XMS_ITS | Encounter Summary ---
Author Organization [employer] Address 75 [facility] 7t [place] [address] Care Team Providers Care Social Work Job Titles Name Role Phone Jayda Patiño MD Primary Care Provide r Reason for Visit * Reason Comments Med Refill Encounter Details Date Type Department Care Team ([facility] st Contact Info) Description 07/07/2023 Refill [facility] MEDICINE [address] [place] [address] Jayda Patiño MD [address] [place] [address] Health care maintenance Social History Tobacco Use [...] PM EST Office Visit [facility] OPTOMETRY [address] [place], [place] [phone] Cain, Shama, OD [address] [place] [address] documented as of this encounter Visit Diagnoses Diagnosis Health care maintenance documented in this encounter Additional Health Concerns Assessment Noted Time PHQ-9 Depression Total Score: 14 024 10:05 AM EST documented as of this encounter Care Teams Social Work Job Titles Relationship Specialty Start Date End Date Jayda Patiño MD 230 [place], [place] [phone] PCP - General Family Medicine 04/05/19 documented as of this encounter
--- OUTSIDE RECORDS SUMMARY | 2025-02-22 21:10 | XMS_ITS | Encounter Summary ---
Author Organization [facility] Address [address] [place] [address] Care Team Providers Care Commercial Attorney Name Role Phone Victor Hugo Rodrigues MD Primary Care Provider Un available Community, Pcp Primary Care Provider Unavailabl e Carolyn Rasheed MD Primary Care Provide r Unavailable Encounter Details Date Type Department Care Team Description 01/02/2016 Transfer Records Medical Records [address] [place] [address] Abstract, Provider Social History Tobacco Use Types Packs/Day Years Used Date Smoking Tobacco: Never Assessed Sex Assigned at Date Recorded Not on file documented as of this encounter Nursing Notes * 01/02/2016 12:00 PM EDT >> CAROLYN FONTANA Fri Jan 02, 2016 3:00 PM Transfer records received from [facility] sent to Ciera Lee RN. documented in this encounter Plan of Treatment Not on file documented as of this encounter Visit Diagnoses Not on filedocumented in this encounter Care Teams Commercial Attorney Relationship Specialty Start Date End Date Victor Hugo Rodrigues MD PCP - General Internal Medicine 12/22/15 Community, Pcp PCP - General Internal Medicine 09/23/16 06/15/23 Carolyn Rasheed MD PCP - General Internal Medicine 06/16/23 documented as of this encounter
--- OUTSIDE RECORDS SUMMARY | 2025-02-22 21:10 | XMS_ITS | Encounter Summary ---
Author Organization [employer] Address [address] [place] [address] Care Team Providers Care Clinical Trial Leader Name Role Phone Jayda Patiño MD Primary Care Provide r Encounter Details Date Type Department Care Team (Late st Contact Info) Description 07/24/2024 Orders Only [facility] MED & PEDS [address] [place] [address] Provider, MD Jennie Social History Tobacco Use [...] Office Visit [facility] OPTOMETRY [address] [place], [place] [id number] Cain, Shama, OD [address] [place] [address] documented as of this encounter Procedures Procedure [...] documented as of this encounter Care Teams Clinical Trial Leader Relationship Specialty Start Date End Date Jayda Patiño MD [address] [place] [address] PCP - General Family Medicine 04/05/19 documented as of this encounter
--- OUTSIDE RECORDS SUMMARY | 2025-02-22 21:10 | XMS_ITS | Encounter Summary ---
Author Organization [employer] Address [address] [facility] [address] [place] [address] Care Team Providers Care Grain Thresher Name Role Phone Jayda Patiño MD Primary Care Provide r Reason for Visit * Reason Comments Med Refill Encounter Details Date Type Department Care Team ([facility] st Contact Info) Description 07/26/2024 Refill [facility] MEDICINE [address] [place] [address] Jayda Patiño MD [address] [place] [address] Class 3 severe obesity due to excess [...] 1:00 PM EST Office Visit [facility] OPTOMETRY [address] [place] [address] Shama Barlow, OD [address] [place] [address] documented as of this encounter Visit Diagnoses Diagnosis Class 3 severe obesity due to excess calories with serious comorbidity and body mass index (BMI) of 40.0 to 44.9 in adult (HCC) documented in this encounter Additional Health Concerns Assessment Noted Time PHQ-9 Depression Total Score: 0 07/13/19 25 1:37 PM EDT documented as of this encounter Care Teams Grain Thresher Relationship Specialty Start Date End Date Jayda Patiño MD [address] [place] [address] PCP - General Family Medicine 04/05/19 documented as of this encounter
--- OUTSIDE RECORDS SUMMARY | 2025-02-22 21:10 | XMS_ITS | Encounter Summary ---
Author Organization [employer] [facility] Address [address] [place] [address] [address] [place] [address] Care Team Providers Care Claims Technician Name Role Phone Jayda Patiño MD Primary Care Provide r Reason for Visit * Reason Comments Med Refill Encounter Details Date Type Department Care Team (Late Contact Info) Description 07/02/2022 Refill [facility] MEDICINE [address] [place] [address] Lissette White MD [address] [place] [address] Chronic rhinitis Social History Tobacco Use Types [...] Description 03/29/2025 1:00 PM EST Office Visit [facility] OPTOMETRY [address] [place] [address] Shama Barlow, OD [address] [place] [address] documented as of this encounter Visit Diagnoses Diagnosis Chronic rhinitis documented in this encounter Care Teams Claims Technician Relationship Specialty Start Date End Date Jayda Patiño MD [address] [place] [address] PCP - General Family Medicine 04/05/19 documented as of this encounter
--- OUTSIDE RECORDS SUMMARY | 2025-02-22 21:10 | XMS_ITS | Encounter Summary ---
Author Organization [employer] Address [address] [place] [address] [address] [place] [address] Care Team Providers Care Email Operations Manager Name Role Phone Jayda Patiño MD Primary Care Provide r Reason for Visit * Reason Comments Med Refill Encounter Details Date Type Department Care Team (Late st Contact Info) Description 10/22/2022 Refill [facility] [address] [place] [address] [facility] [address] [place] [address] Hypertension, unspecified type Social History Tobacco Use [...] Description 03/29/2025 1:00 PM EST Office Visit [facility] OPTOMETRY [address] [place] [address] Cain, Shama, OD [address] [place] [address] documented as of this encounter Visit Diagnoses Diagnosis Hypertension, unspecified type documented in this encounter Additional Health Concerns Assessment Noted Time PHQ-9 Depression Total Score: 14 023 1:24 PM EDT documented as of this encounter Care Teams Email Operations Manager Relationship Specialty Start Date End Date Jayda Patiño MD [address] [place] [address] PCP - General Family Medicine 04/05/19 documented as of this encounter
--- OUTSIDE RECORDS SUMMARY | 2025-02-22 21:10 | XMS_ITS | Encounter Summary ---
Author Organization [email or web address] Address [address] [facility] [address] [place] [address] Care Team Providers Care Nail Expert Name Role Phone Jayda Patiño MD Primary Care Provide r Reason for Visit * Reason Comments Med Refill Encounter Details Date Type Department Care Team ([facility] st Contact Info) Description 03/26/2023 Refill [facility] MEDICINE [address] [place], [place] [phone] Name, MD Lorenzo [address] [place] [address] Hypertension, unspecified type Social History Tobacco Use [facility] [address] [place], [place] [phone] Shama Barlow, OD [address] [place] [address] documented as of this encounter Visit Diagnoses Diagnosis Hypertension, unspecified type documented in this encounter Additional Health Concerns Assessment Noted Time PHQ-9 Depression Total Score: 14 023 1:24 PM EDT documented as of this encounter Care Teams Nail Expert Relationship Specialty Start Date End Date Jayda Patiño MD [address] [place] [address] PCP - General Family Medicine 04/05/19 documented as of this encounter
--- OUTSIDE RECORDS SUMMARY | 2025-02-22 21:10 | XMS_ITS | Clinical Summary ---
Author Organization [employer] Address [address] [place] [address] [address] [place] [address] Care Team Providers Care Accounts Payable Assistant Name Role Phone Jayda Patiño MD [...] NEEDED FOR FOR CONSTIPATION 07/26/2 024 Active hydroCHLOROthiazi de (HYDRODiuril) 25 MG tabletIndications :Essential hypertension Take 1 tablet (25 mg) by mouth Once per day. 30 tablet 11 025 2025 Active meclizine (Antivert) 25 MG tabletIndications :Vertigo Take 1 tablet (25 mg) by mouth if needed in the morning, at noon, and at bedtime for dizziness. 30 tablet 025 Active SUMAtriptan (Imitrex) 25 MG tabletIndications :Migraine without aura, not refractory TAKE 1 TAB ORALLY AFTER MIGRAINE ONSET MAY REPEAT AFTER 2HRS IF HEADACHE RETURNS,MAX 200MG IN 24HRS 9 tablet 3 025 Active meloxicam (Mobic) 15 MG tabletIndications :Polyarthralgia TAKE 1 TABLET BY MOUTH EVERY DAY 30 tablet 025 Active pravastatin (Pravachol) 40 MG tabletIndications :Hyperlipidemia, unspecified hyperlipidemia type TAKE 1 TABLET BY MOUTH EVERY DAY 90 tablet 025 Active topiramate 50 MG tabletIndications :Chronic migraine without aura without status migrainosus, not intractable TAKE 1 TABLET BY MOUTH EVERY DAY 180 tablet 025 Active folic acid (Folvite) 1 MG tabletIndications :Health care maintenance Take 1 tablet (1 mg) by mouth Once per day. TAKE 1 TABLET BY MOUTH EVERY DAY 90 tablet 1 025 Active cholecalciferol (D3-1000) 25 MCG (1000 UT) capsuleIndication s:Vitamin D deficiency Take 1 capsule (25 mcg) by mouth Once per day. 90 capsule 1 025 Active loratadine (Claritin) 10 MG tabletIndications :Chronic rhinitis TAKE 1 TABLET BY MOUTH EVERY DAY NEEDED 90 tablet 1 025 Active Tirzepatide-Weigh t Management (Zepbound) 5 MG/0.5ML solution auto-injectorIndi cations:Class 3 severe obesity due to excess calories with serious comorbidity and body mass index (BMI) of 40.0 to 44.9 in adult (HCC) Inject 0.5 mL (5 mg) under the skin 1 (one) time per week. 2 mL 2 025 Active ibuprofen 400 MG tablet Take 1 tablet (400 mg) by mouth every 6 (six) hours if needed for moderate pain. 30 tablet 1 Active loratadine (Claritin) 10 MG tabletIndications :Chronic rhinitis TAKE 1 TABLET BY MOUTH EVERY DAY NEEDED 90 tablet 1 025 2024 Discontinued(R eorder (will not trigger notification to Pharmacy)) folic acid (Folvite) 1 MG tabletIndications :Health care maintenance TOME 1 TABLETA POR VIA ORAL TODOS [place] 90 tablet 1 025 2024 Discontinued D3-1000 25 MCG (1000 UT) capsuleIndication s:Vitamin D deficiency TAKE 1 CAPSULE BY MOUTH EVERY DAY 90 capsule 1 025 2024 Discontinued(R eorder (will not trigger notification to Pharmacy)) pravastatin (Pravachol) 40 MG tabletIndications :Hyperlipidemia, unspecified hyperlipidemia type TOME 1 TABLETA POR VIA ORAL TODOS [place] 90 tablet 025 2024 Discontinued topiramate 50 MG tabletIndications :Chronic migraine without aura without status migrainosus, not intractable TOME 1 TABLETA POR VIA ORAL DOS VECES AL NORI 180 tablet 025 2024 Discontinued meloxicam (Mobic) 15 MG tabletIndications :Polyarthralgia TOME 1 TABLETA POR VIA ORAL TODOS [place] 30 tablet 025 2024 Discontinued Tirzepatide-Weigh t Management (Zepbound) 5 MG/0.5ML solution auto-injector Inject 0.5 mL (5 mg) under the skin 1 (one) time per week. 2 mL 2 025 2024 Discontinued(R eorder (will not trigger notification to Pharmacy)) Active Problems Problem Noted Date Diagnosed Date [...] Encounters Date Type Department Care Team Description 02/16/2025 Refill [facility] [address] [place] [address] Jayda Patiño MD Polyarthralgia 02/14/2025 Telephone [facility] [address] [place] [address] Jayda Patiño MD Med Refill 02/11/2025 Refill [facility] [address] [place] [address] Jayda Patiño MD Class 3 severe obesity due to excess calories with serious comorbidity and body mass index (BMI) of 40.0 to 44.9 in adult (HCC) 02/07/2025 Refill [facility] [address] [place] [address] Celena Farias DO Chronic rhinitis 02/07/2025 Refill [facility] [address] [place], [place] [phone] [place], Lora, [employer] Vitamin D deficiency 02/07/2025 Refill [facility] [address] [place], [place] [phone] Jayda Patiño MD Hyperlipidemia, unspecified hyperlipidemia type; Chronic migraine without aura without status migrainosus, not intractable; Health care maintenance; Vitamin D deficiency; Chronic rhinitis 02/02/2025 Refill [facility] [address] [place] [phone] Jayda Patiño MD Polyarthralgia 01/29/2025 Orders Only [facility] [address] [place] [address] Jayda Patiño MD 01/23/2025 2:45 PM EDT Telemedicine [facility] [address] [place] [phone] Jayda Patiño MD Class 3 severe obesity due to excess calories with serious comorbidity and body mass index (BMI) of 40.0 to 44.9 in adult (HCC) (Primary Dx); Chronic fatigue; ROSARIO (obstructive sleep apnea); Dietary counseling; Exercise counseling 01/23/2025 Travel 01/22/2025 Telephone [facility] [address] [place] [phone] Jayda Patiño MD Chart Prep 01/15/2025 Telephone [facility] [address] [place] [address] Jayda Patiño MD 01/13/2025 Refill [facility]S [address] [place], [place] [phone] [facility], [facility] Vitamin D deficiency 01/13/2025 Refill [facility] [address] [place] [address] Celena Farias DO Chronic rhinitis 01/13/2025 Refill [facility] [address] [place] [address] Jayda Patiño MD Chronic migraine without aura without status migrainosus, not intractable; Hyperlipidemia, unspecified hyperlipidemia type; Polyarthralgia; Health care maintenance 01/09/2025 5:00 PM EDT Office Visit [facility] [address] [place] [phone] Lorenzo Banegas MD Epigastric pain (Primary Dx); Bloating 01/09/2025 Travel 01/03/2025 Refill [facility] [address] [place] [address] Jayda Patiño MD Polyarthralgia; Migraine without aura, not refractory 12/19/2024 Refill [facility] [address] [place] [address] Jayda Patiño MD Class 3 severe obesity due to excess calories with serious comorbidity and body mass index (BMI) of 40.0 to 44.9 in adult 11/30/2024 Refill [facility] [address] [place], [place] [phone] Jayda Patiño MD Polyarthralgia from Last 3 Months Immunizations Immunization [...] EST Office Visit [facility] [address] [place] [address] Shama Barlow, OD [address] [place] [address] Health Maintenance Due Date Last Done Comments [...] 2024 , 03/17/2021, 01/08/2020, Additional history exists Alcohol/Substance Use Screening 07/12/2025 07/12/2024 SDOH Screening 07/12/2025 07/12/2024 Tobacco Screening 01/09/2026 01/09/2025 Depression Screening 01/23/2026 01/23/2025, 01/24/20 Diabetes: Hemoglobin A1C 01/24/2026 025, 04/23/2024, 09/06/2022, Additional history exists Mammogram 01/29/2026 01/29/2025, 1004/2023, 01/18/2023, Additional history exists Colonoscopy 08/17/2026 08/18/2023, 05/10/2013 Colorectal Cancer Screening 08/17/2026 Cervical Cancer Screening 06/30/2028 HPV/Cotest 06/30/2028 07/01/2023, 06/14/2019 Pap Smear 06/30/2028 07/01/2023 Lipid Panel 01/24/2030 01/24/2025, 12/3 , 09/06/2022, Additional history exists RSV Patients and [...] Procedure Name Priority Date/Time Associated Diagnosis Comments BI MAMMOGRAM SCREENING TOMOSYNTHESIS BILATERAL Routine 01/29/2025 12:34 PM EDT TSH W/REFLEX TO FT4 Routine 01/24/2025 1 [...] Routine 01/24/2025 11:36 AM EDT Chronic fatigue HM COLONOSCOPY Routine 08/18/2023 10:07 AM EDT HPV MRNA E6/E7 REFLEX TO HPV 16, 18/45 Routine 07/01/2023 2:31 PM EST PAP SMEAR Routine 07/01/2023 2:31 PM EST Encounter for Papanicolaou smear for cervical cancer screening from Last 3 Months or Most Recently Relevant to Health Maintenance Results * BI Mammogram Screening Tomosynthesis Bilateral (01/29/2025 12:34 PM EDT) Anatomical Region Laterality Modality Breast Bilateral Mammography 01/29/2025 12:3 4 PM EDT Narrative 02/05/2025 5:19 PM EDT [facility] [address] [place] [address] Mammography Report Signed Patient: Milady Dean MR#: [id number] : 1965 Acct:[id number] Age/Sex: 59 / F ADM Date: 01/29/25 Loc: HO.MAMMO Attending Dr: Jayda Mcelroy MD Ordering Physician: Jayda Patiño MD Results: 1Negative Date of Service: 01/29/25 Follow Up: 1 Year From Orig [facility] Mammogram Procedure(s): MM tomosynthesis screening BI Accession Number(s): [id number] cc: Jayda Patiño MD Reason For Exam: SCREENING EXAMINATION: MM SCREENING DIGITAL BREAST TOMOSYNTHESIS, BILATERAL CLINICAL INFORMATION: Screening. Asymptomatic. COMPARISON: Mammography: Comparison is made with available priors TECHNIQUE: Digital breast mammography with tomosynthesis is performed in both the craniocaudal and mediolateral oblique views along with computer-aided detection (CAD). FINDINGS: There are scattered areas of fibroglandular density. There are no significant masses, abnormal calcifications, or other abnormalities. MM/MM tomosynthesis screening BI IMPRESSION: No mammographic evidence of malignancy. ASSESSMENT: BI-RADS Category 1: Negative RECOMMENDATION: Routine annual mammography screening. 1 year F/U This examination should not preclude the clinical evaluation of a suspicious palpable abnormality. This patient's information was entered into a reminder system with a target due date for their next mammogram. Electronically signed by: Maria Ines Velazquez DO 02/05/2025 05:16 PM EDT Dictated By: Maria Ines Velazquez DO Signed By: <Electronically signed by Maria Ines Velazquez DO in OV> 02/05/25 1716 DD/ 1234 TD/TT: 01/29/25 1230 Copyman: Procedure Note Donotuseinterpreter, Image - 02/05/2025 [facility] [address] [place] [address] Mammography Report Signed Patient: Mabel Dean#: [id number] : 1965Acct:[id number] Age/Sex: 59 / FADM Date: 01/29/25 Loc: [place] Attending Dr: Jayda Mcelroy MD Ordering Physician: Jayda Patiño MDResults: 1Negative Date of Service: 01/29/25Follow Up: 1 Year From Orig inal Mammogram Procedure(s): MM tomosynthesis screening BI Accession Number(s): [id number] cc: Jayda aPtiño MD Reason For Exam: SCREENING EXAMINATION: MM SCREENING DIGITAL BREAST TOMOSYNTHESIS, BILATERAL CLINICAL INFORMATION: Screening. Asymptomatic. COMPARISON: Mammography: Comparison is made with available priors TECHNIQUE: Digital breast mammography with tomosynthesis is performed in both the craniocaudal and mediolateral oblique views along with computer-aided detection (CAD). FINDINGS: There are scattered areas of fibroglandular density. There are no significant masses, abnormal calcifications, or other abnormalities. MM/MM tomosynthesis screening BI IMPRESSION: No mammographic evidence of malignancy. ASSESSMENT: BI-RADS Category 1: Negative RECOMMENDATION: Routine annual mammography screening. 1 year F/U This examination should not preclude the clinical evaluation of a suspicious palpable abnormality. This patient's information was entered into a reminder system with a target due date for their next mammogram. Electronically signed by: Maria Ines Velazquez DO 02/05/2025 05:16 PM EDT RP Dictated By: Maria Ines Velazquez DO Signed By: <Electronically signed by Maria Ines Velazquez DO in OV> 02/05/25 1716 DD/ 1234 TD/TT: 01/29/25 1230 Copyman: Jayda Mcelroy MD IMG BI PROCEDURES Fin al Result * Vitamin D, 25-Hydroxy, Total, Immunoassay (01/24/2025 11:36 AM EDT) Vitamin D 25-OH Total 60.3 >30 ng/mL [facility] Comment: Health Based Reference Values*< 20 ng/mL Ybicngvfc60-03 ng/mL Insufficient> 30 ng/mL Sufficient*[place] MULTANI. N [...] BLOOD ORDERABLES Final Result Performing Organization Address City/[facility]/ZIP Co de Phone Number [facility] [address] [place] [address] [phone] * TSH with Reflex to Free T4 (01/24/2025 11:36 AM EDT) TSH reflex Free T4 1.88 0.32 - 4.0 uIU/mL [facility] Blood Venous blood specimen / Unknown 01/24/2025 11:36 AM EDT 01/24/2025 1:17 PM EDT us Jayda Mcelroy MD LAB BLOOD ORDERABLES Final Result Performing Organization Address [facility]/ZIP Co de Phone Number [facility] [address] [place] [phone] * (ABNORMAL) CBC auto differential (01/24/2025 11:36 AM EDT) Pathologist [facility] White Blood Count 7.2 4.8 - 10.8 X10*3/uL [facility] Red Blood Count 5.08 4.20 - 5.50 X10*6/uL [facility] Hemoglobin 15.6 12.0 - 16.0 g/dl [facility] Hematocrit 47.1(H) 37.0 - 47.0 % [facility] Mean Corpuscular Volume 92.7 80.0 - 98.0 fL [facility] Mean Corpuscular Hemoglobin 30.7 27.0 - 33.0 pg [facility] Mean Corpuscular HGB Conc 33.1 31.0 - 35.0 g/dl [facility] Red Cell Distribution Width 13.2 11.0 - 16.0 % [facility] Platelet Count 209 160 - 400 X10*3/uL [facility] Mean Platelet Volume 12.5(H) 9.4 - 12.3 fL [facility] Neutrophils Percent Auto 57.5 45 - 73 % [facility] Imm Gran Pct Auto 0.1 0.0 - 0.4 % [facility] Lymphocytes Percent Auto 32.5 20 - 40 % [facility] Monocytes Percent Auto 6.7 2 - 11 % [facility] Eosinophils Percent Auto 2.5 0 - 4 % [facility] Basophils Percent Auto 0.7 0 - 2 % [facility] NRBC Pct Auto 0.0 0.0 - 0.2 /100WBC [facility] Neutrophils Absolute Auto 4.1 2.0 - 8.3 x10*3/uL [facility] Imm Gran Abs Auto 0.01 0.00 - 0.03 X10*3/uL [facility] Lymphocytes Absolute Auto 2.3 1.2 - 4.9 X10*3/uL [facility] Monocytes Absolute Auto 0.5 0.1 - 1.2 X10*3/uL [facility] Eosinophils Absolute Auto 0.2 0.0 - 0.4 X10*3/uL [facility] Basophils Absolute Auto 0.1 0.0 - 0.2 X10*3/uL [facility] NRBC Abs Auto 0.000 0.0 - 0.012 X10*3/uL [facility] Blood Venous blood specimen / Unknown 01/24/2025 11:36 AM EDT 01/24/2025 1:17 PM EDT us Jayda Mcelroy MD LAB BLOOD ORDERABLES Final Result [facility] [address] [place] [phone] * Hepatitis C Antibody with Reflex to HCV, RNA, Quantitative, Real-Time PCR (01/24/2025 11:36 AM EDT) Hepatitis C Antibody Nonreactive Nonreactive [facility] Comment:Antibodies to HCV no t detected; does not exclude early acuteHCV infection. Blood Venous blood specimen / Unknown 01/24/2025 11:36 AM EDT 01/24/2025 1:17 PM EDT Jayda Mcelroy MD LAB BLOOD ORDERABLES Final Result Performing Organization Address [facility] Co de Phone Number [facility] [address] [place] [phone] * HIV-1/2 Antigen and Antibodies, Fourth Generation, with Reflexes (01/24/2025 11:36 AM EDT) HIV AB/AG Nonreactive Nonreactive [facility] Comment:HIV-1 p24 Ag and/or HIV-1/HIV-2 Ab not detected.A test result that is nonreactive does not exclude thepossibility of exposure to or infection with HIV-1 and/orHIV-2. Nonreactive results in this assay for individualswith prior exposure to HIV-1 and/or HIV-2 may be due toantigen and antibody levels that are below the limit ofdetection of this assay.The EasyCopayniQuividi HIV Ag/Ab Combo assay result andsupplemental assay results should be interpreted inconjunction with the patient's clinical presentation,history and other laboratory results. If the results areinconsistent with clinical evidence, additional testing issuggested to confirm the result. Blood Venous blood specimen / Unknown 01/24/2025 11:36 AM EDT 01/24/2025 1:17 PM EDT us Jayda Mcelroy MD LAB BLOOD ORDERABLES Final Result Performing Organization Address City/[facility]/ZIP Co de Phone Number [facility] [address] [place] [phone] * Hemoglobin A1c (01/24/2025 11:36 AM EDT) Hemoglobin A1c 5.0 <6.0 % [facility] Comment:Hemoglobin A1C Refer ence Range Adults: 4.8 - 6.0 % Non diabetic: < 6.0 % Goal: < 7.0 %Additional Action Suggested: > 8.0 %Note: Hemoglobin A1c results are invalid for patients with abnormal amounts of HbF. Blood transfusions may impact the HbA1c concentration in the patient sample. Estimated Average Glucose 97 mg/dL [facility] Comment:eAG = Estimated ave rage glucose which is %A1C expressed asaverage glucose, using the formula of the G7E-SvyuynoBshkvjc Glucose study (ADAG), Diabetes Care, Vol.31,#8,Nov. 2007 Blood Venous blood specimen / Unknown 01/24/2025 11:36 AM EDT 01/24/2025 1:17 PM EDT us Jayda Mcelroy MD LAB BLOOD ORDERABLES Final Result [facility] [address] [place] [phone] * (ABNORMAL) Lipid Panel, Standard (01/24/2025 11:36 AM EDT) Triglycerides 180(H) <150 mg/dL [facility] Comment:Desirable Triglyceri de: less than 150 mg/dLBorderline High Triglyceride 150-199 mg/dLHigh Triglyceride: 200-499 mg/dLVery High Triglyceride: greater than or equal to 5OO mg/dL Cholesterol 167 <200 mg/dL [facility] Comment:Desirable Cholestero l: less than 200 mg/dLBorderline High Cholesterol: 200-239 mg/dLHigh Cholesterol: greater than 239 mg/dL LDL Cholesterol Calculated 100(H) <100 mg/dL [facility] Comment:Desirable LDL: less than 100 mg/dLNear Optimal/Above Optimal LDL: 110- 129 mg/dLBorderline High LDL: 130-159 mg/dLHigh LDL: 160-189 mg/dLVery High LDL: greater than or equal to 190 mg/dL HDL Cholesterol 31(L) >40 mg/dL [facility] Comment:Desirable HDL: great er than 40 mg/dL Note: This HDL assay may give artificially low results in patients with liver disease. Blood Venous blood specimen / Unknown 01/24/2025 11:36 AM EDT 01/24/2025 1:17 PM EDT us Jayda Mcelroy MD LAB BLOOD ORDERABLES Final Result [facility] [address] [place] [phone] * (ABNORMAL) Comprehensive Metabolic Panel (01/24/2025 11:36 AM EDT) Sodium 140 135 - 145 mmol/L [facility] Potassium 4.4 3.3 - 5.1 mmol/L [facility] Chloride 106 96 - 108 mmol/L [facility] Carbon Dioxide 29 22 - 29 mmol/L [facility] Anion Gap 9(L) 12 - 20 [facility] Urea Nitrogen (BUN) 14 9 - 16 mg/dL [facility] Creatinine, Serum 1.13 0.5 - 1.4 mg/dL [facility] Estimated Glomerular Filt Rate 49 [facility] Comment:Chronic Kidney Disea se: Estimated GFR < 60 mL/min/1.26z6Mxilrb Kidney Disease: Estimated GFR < 15 mL/min/1.73m2 Glucose 99 60 - 115 mg/dL [facility] Calcium 9.0 8.4 - 10.2 mg/dL [facility] Bilirubin, Total 0.5 0.0 - 1.0 mg/dL [facility] Aspartate Amino Transferase 34(H) 5 - 31 U/L [facility] Alanine Aminotransferase 30 0 - 31 U/L [facility] Total Protein 6.9 6.5 - 8.0 g/dL [facility] Albumin Level 4.3 3.5 - 5.0 g/dL [facility] Alkaline Phosphatase 88 39 - 117 U/L [facility] Blood Venous blood specimen / Unknown 01/24/2025 11:36 AM EDT 01/24/2025 1:17 PM EDT us Jayda Mcelroy MD LAB BLOOD ORDERABLES Final Result Performing Organization Address City/[facility]/ZIP Co de Phone Number [facility] [address] [place] [phone] * Hm Colonoscopy (08/18/2023 10:07 AM EDT) Colonoscopy Normal Normal Narrative Donna Bal - 08/18/2023 10:07 AM EDT Repeat Colonoscopy in 3 years due to polyps and fair prep on right side or earlier if clinically indicated see the external hospital admission note on 08/18/2023 [facility] Provider HEALTH MAINTENANCE Edited Result - Final * HPV mRNA E6/E7 w/Reflex to HPV Genotypes 16, 18/45 (07/01/2023 2:31 PM EST) HPV nRNA E6/E7 Not Detected Not Detected [facility] Comment:Methodology: Transcr iption-Mediated AmplificationThis assay detects E6/E7 viral messenger RNA (mRNA) from 14high-risk HPV types (16,18,31,33,35,39,45,51,52,56,58,59,66,68).Cervical sources are required for HPV testing.If a vaginal source from a patient who has had atotal hysterectomy with removal of cervix wassubmitted, please contact the testing laboratoryfor alternative testing options.For additional information, please refer [email or web address]/faq/[email or web address](This link if provided for information/educational purposes only.)THIS TEST WAS PERFORMED AT:[employer] [place] [phone] SANCHEZ MD HPV mRNA E6/E7 [facility] HPV 16 RNA [facility] HPV 18/45 RNA [facility] 07/01/2023 2:31 PM EST 07/04/2023 8:45 AM EDT [facility] LAB CYTOLOGY ORDERABLES Final Result [facility] [address] [place] [address] [phone] * Pap Smear (07/01/2023 2:31 PM EST) Swab Cervix uteri structure / Unknown 07/01/2023 2:31 PM EST 07/04/2023 8:45 AM EDT [facility] - 07/12/2023 9:30 AM EDT ----- ------- Name: Milady Dean Age/Sex: 58/F : 1965 Unit#: [id number] Attend Dr: Lora Wise Re07/01/23 Status: [facility]: ----- ------- SPEC : [id number] RECD: 07/04/2345 STATUS: [place] SAAVEDRA NUM: [id number] TAMEKA: 07/01/23-[address] [facility] [address]: Lora Wise ENTERED: 07/04/23-1042 SP TYPE: Pap Smr OT DR: ORDERED: Pap Smear Interpretation Satisfactory for evaluation. No endocervical cells seen. Cytolysis noted. Negative for intraepithelial lesion or malignancy. HPV mRNA E6/E7: NOT DETECTED This assay detects E6/E7 viral messenger RNA (mRNA) from 14 high-risk HPV types (16, 18, 31, 33, 35, 39, 45, 51, 52, 56, 58, 59, 66, 68) HPV testing performed by [facility], [place], [place]. See reference laboratory portion of the EMR for entire report. Clinical Information LMP: Postmenopausal Previous PAP test: Unknown date/findings Material Received ThinPrep-Vaginal/Cervical ----- ------- Signed (signature on file) JEROME Jimenez (ASCP) 07/12/23 0930 ----- ------- END OF REPORT [facility] CYTOLOGY ORDERABLES Final Result [facility] [address] [place] [address] [phone] from Last 3 Months or Most Recently Relevant to Health Maintenance Insurance [facility] [employer] Care Teams Accounts Payable Assistant Relationship Specialty Start Date End Date Jayda Patiño MD [address] [place] [phone] PCP - General Family Medicine 04/05/19
--- OUTSIDE RECORDS SUMMARY | 2025-02-22 21:10 | XMS_ITS | Encounter Summary ---
Author Organization [employer] Address [address] [place] [address] 7t [place] [address] Care Team Providers Care Aba Therapist Name Role Phone Jayda Patiño MD Primary Care Provide r Reason for Visit * Reason Comments Med Refill Encounter Details Date Type Department Care Team ([facility] Contact Info) Description 05/27/2022 Refill [facility] MEDICINE [address] [place] [address] Lia Edwards FNP [address] [place] [address] Chronic right shoulder pain Social History Tobacco [...] 03/29/2025 1:00 PM EST Office Visit [facility] OPTOMETRY [address] [place] [address] Shama Barlow, OD [address] [place] [address] documented as of this encounter Visit Diagnoses Diagnosis Chronic right shoulder pain Pain in joint, shoulder region documented in this encounter Care Teams Aba Therapist Relationship Specialty Start Date End Date Jayda Patiño MD 230 [place] [address] PCP - General Family Medicine 04/05/19 documented as of this encounter
--- OUTSIDE RECORDS SUMMARY | 2025-02-22 21:10 | XMS_ITS | Encounter Summary ---
Author Organization [employer] Address [address] [place] [address] 7t [place] [address] Care Team Providers Care Lead Section Supervisor Name Role Phone Jayda Patiño MD Primary Care Provide r Reason for Visit * Reason Comments Med Refill Encounter Details Date Type Department Care Team ([facility] Contact Info) Description 07/30/2022 Refill [facility] MEDICINE [address] [place] [address] Lia Edwards FNP [address] [place] [address] Chronic right shoulder pain Social History Tobacco [...] [facility] OPTOMETRY [address] [place] [address] Shama Barlow, OD [address] [place] [address] documented as of this encounter Visit Diagnoses Diagnosis Chronic right shoulder pain Pain in joint, shoulder region documented in this encounter Care Teams Lead Section Supervisor Relationship Specialty Start Date End Date Jayda Patiño MD 230 [place] [address] PCP - General Family Medicine 04/05/19 documented as of this encounter
--- OUTSIDE RECORDS SUMMARY | 2025-02-22 21:10 | XMS_ITS | Encounter Summary ---
Author Organization [facility] Address [address] [place] [address] Care Team Providers Care Machine Brush Maker Name Role Phone Victor Hugo Rodrigues MD Primary Care Provider Un available Community, Pcp Primary Care Provider Unavailabl e Jayda Rasheed MD Primary Care Provide r Unavailable Encounter Details Date Type Department Care Team Description 01/16/2016 [facility] Medical Records [address] [place] [id number] Abstract, Provider Social History Tobacco Use Types [...] on filedocumented in this encounter Care Teams Machine Brush Maker Relationship Specialty Start Date End Date Victor Hugo Rodrigues MD PCP - General Internal Medicine 12/22/15 Community, Pcp PCP - General Internal Medicine 09/23/16 06/15/23 Jayda Rasheed MD PCP - General Internal Medicine 06/16/23 documented as of this encounter
--- OUTSIDE RECORDS SUMMARY | 2025-02-22 21:10 | XMS_ITS | Encounter Summary ---
Author Organization [employer] Address [address] [place] [address] 7t [place] [address] Care Team Providers Care Histologic Aide Name Role Phone Jayda Patiño MD Primary Care Provide r Reason for Visit * Reason Comments Med Refill Encounter Details Date Type Department Care Team ([facility] Contact Info) Description 07/02/2022 Refill [facility] MEDICINE [address] [place] [address] Lia Edwards FNP [address] [place] [address] Chronic right shoulder pain Social History Tobacco [...] Visit [facility] OPTOMETRY [address] [place] [address] Shama Barlow, OD [address] [place] [address] documented as of this encounter Visit Diagnoses Diagnosis Chronic right shoulder pain Pain in joint, shoulder region documented in this encounter Care Teams Histologic Aide Relationship Specialty Start Date End Date Jayda Patiño MD 230 [place] [address] PCP - General Family Medicine 04/05/19 documented as of this encounter
--- OUTSIDE RECORDS SUMMARY | 2025-02-22 21:10 | XMS_ITS | Encounter Summary ---
Author Organization [employer] Address [address] [facility] 7t [place] [address] Care Team Providers Care Agricultural Engineering Technologist Name Role Phone Jayda Patiño MD Primary Care Provide r Reason for Visit * Reason Comments Med Refill Encounter Details Date Type Department Care Team ([facility] st Contact Info) Description 01/14/2024 Refill [facility] MEDICINE [address] [place] [address] Jayda Patiño MD [address] [place] [address] Health care maintenance Social History Tobacco Use [...] 1:00 PM EST Office Visit [facility] OPTOMETRY [address] [place], [place] [phone] Cain, Shama, OD [address] [place] [address] documented as of this encounter Visit Diagnoses Diagnosis Health care maintenance documented in this encounter Additional Health Concerns Assessment Noted Time PHQ-9 Depression Total Score: 14 024 10:05 AM EST documented as of this encounter Care Teams Agricultural Engineering Technologist Relationship Specialty Start Date End Date Jayda Patiño MD [address] [place], [place] [phone] PCP - General Family Medicine 04/05/19 documented as of this encounter
--- OUTSIDE RECORDS SUMMARY | 2025-02-22 21:10 | XMS_ITS | Encounter Summary ---
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 [address] [place] [address] Social History Tobacco Use Types Packs/Day Years Used Date Smoking Tobacco: Former Alcohol Use Standard Drinks/Week Comments No 0 (1 standard drink = 0.6 oz pur e alcohol) Sex Assigned at Date Recorded Not on file documented as of this encounter Plan of Treatment Not on file documented as of this encounter Visit Diagnoses Not on filedocumented in this encounter Care Teams Gatehouse Attendant Relationship Specialty Start Date End Date Victor Hugo Rodrigues MD PCP - General Internal Medicine 12/22/15 Community, Pcp PCP - General Internal Medicine 09/23/16 06/15/23 Jayda Rasheed MD PCP - General Internal Medicine 06/16/23 documented as of this encounter
--- OUTSIDE RECORDS SUMMARY | 2025-02-22 21:10 | XMS_ITS | Clinical Summary ---
Author Organization [facility] it Address [address] [place] [address] Care Team Providers Care Transport Analyst Name Role Phone Jayda Patiño MD Primary Care Provide r Surgical History Surgery Date Site/Laterality Comments BUNIONECTOMY 2014 Left PROCEDURE: IA CORRJ HLX VLGS BNCTY SESMDC W/DOUBLE OSTEOTOMY OTHER SURGICAL HISTORY 12/28/12 PROCEDURE: OUTSIDE PAP SMEAR TUBAL LIGATION PROCEDURE: HISTORICAL TUBAL LIGATION EYE SURGERY Left PROCEDURE: HISTORICAL EYE SURGERY; COMMENT: EYELID CERVICAL BIOPSY W/ LOOP ELECTRODE EXCISION PROCEDURE: IA CONIZATION CERVIX W/WO D&C RPR ELTRD EXC; [...] Years (1 of 1 - PCV) 2016 RSV Immunization Adult Patients (1 - Risk 50-74 years 1-dose series) 2016 Zoster Vaccines (1 of 2) 2016 [...] age to complete this topic Care Teams Transport Analyst Relationship Specialty Start Date End Date Jayda Patiño MD [address] [place] [phone] PCP - General 06/16/23
--- OUTSIDE RECORDS SUMMARY | 2025-02-22 21:10 | XMS_ITS | Encounter Summary ---
Author Organization [employer] Address [address] [facility] 7t [place] [address] Care Team Providers Care Levelman Name Role Phone Jayda Patiño MD Primary Care Provide r Reason for Visit * Reason Comments Med Refill Encounter Details Date Type Department Care Team ([facility] st Contact Info) Description 03/24/2023 Refill [facility] [address] [place], [place] [phone] Jayda Patiño MD [address] [place] [address] Vitamin D deficiency Social History Tobacco Use [...] Description 03/29/2025 1:00 PM EST Office Visit [facility] OPTOMETRY [address] [place] [employer] [place], [place] [phone] Shama Barlow, OD [address] [place] [address] documented as of this encounter Visit Diagnoses Diagnosis Vitamin D deficiency documented in this encounter Additional Health Concerns Assessment Noted Time PHQ-9 Depression Total Score: 14 023 1:24 PM EDT documented as of this encounter Care Teams Levelman Relationship Specialty Start Date End Date Jayda Patiño MD [address] [place] [address] PCP - General Family Medicine 04/05/19 documented as of this encounter
--- OUTSIDE RECORDS SUMMARY | 2025-02-22 21:10 | XMS_ITS | Encounter Summary ---
Author Organization [employer] Address [address] [place] [address] 7t [place] [address] Care Team Providers Care Managed Care Manager Name Role Phone Jayda Patiño MD Primary Care Provide r Reason for Visit * Reason Comments Med Refill Encounter Details Date Type Department Care Team ([facility] st Contact Info) Description 02/24/2023 Refill [facility] MEDICINE [address] [place] [address] Jayda Patiño MD [address] [place] [address] Chronic migraine without aura without status migrainosus, [...] 03/29/2025 1:00 PM EST Office Visit [facility] OPTOMETRY [address] [place] [address] Shama Barlow, OD 230 [place] [address] documented as of this encounter Visit Diagnoses Diagnosis Chronic migraine without aura without status migrainosus, not intractable Vitamin D deficiency Chronic rhinitis Hyperlipidemia, unspecified hyperlipidemia type documented in this encounter Additional Health Concerns Assessment Noted Time PHQ-9 Depression Total Score: 14 023 1:24 PM EDT documented as of this encounter Care Teams Managed Care Manager Relationship Specialty Start Date End Date Jayda Patiño MD [address] [place] [address] PCP - General Family Medicine 04/05/19 documented as of this encounter
--- OUTSIDE RECORDS SUMMARY | 2025-02-22 21:10 | XMS_ITS | Encounter Summary ---
Author Organization [employer] Address [address] [facility] 7t [place] [address] Care Team Providers Care Form Maker Name Role Phone Jayda Patiño MD Primary Care Provide r Reason for Visit * Reason Comments Med Refill Encounter Details Date Type Department Care Team ([facility] st Contact Info) Description 02/16/2025 Refill [facility] MEDICINE [address] [place] [address] Jayda Patiño MD [address] [place] [address] Polyarthralgia Social History Tobacco Use Types Packs/Day [...] Description 03/29/2025 1:00 PM EST Office Visit [facility] OPTOMETRY [address] [place] [address] Cain, Shama, OD 230 [place] [address] documented as of this encounter Visit Diagnoses Diagnosis Polyarthralgia Pain in joint, multiple sites documented in this encounter Additional Health Concerns Assessment Noted Time PHQ-9 Depression Total Score: 5 01/24/20 25 2:37 PM EDT documented as of this encounter Care Teams Form Maker Relationship Specialty Start Date End Date Jayda Patiño MD [address] [place] [address] PCP - General Family Medicine 04/05/19 documented as of this encounter
--- OUTSIDE RECORDS SUMMARY | 2025-02-22 21:10 | XMS_ITS | Encounter Summary ---
Author Organization [employer] [facility] Address [address] [place] [address] 7 [place] [address] Care Team Providers Care Social Science Instructor Name Role Phone Jayda Patiño MD Primary Care Provide r Reason for Visit * Reason Comments Med Refill Encounter Details Date Type Department Care Team (Late st Contact Info) Description 06/09/2022 Refill [facility] MEDICINE [address] [place] [address] Lissette White MD [address] [place] [address] Chronic rhinitis Social History Tobacco Use Types [...] 03/29/2025 1:00 PM EST Office Visit [facility] OPTOMETRY [address] [place] [address] Shama Barlow, OD 230 [place] [address] documented as of this encounter Visit Diagnoses Diagnosis Chronic rhinitis documented in this encounter Care Teams Social Science Instructor Relationship Specialty Start Date End Date Jayda Patiño MD [address] [place] [address] PCP - General Family Medicine 04/05/19 documented as of this encounter
--- OUTSIDE RECORDS SUMMARY | 2025-02-22 21:10 | XMS_ITS | Encounter Summary ---
Author Organization [facility] Address [address] [place] [address] Care Team Providers Care Lifestyle Consultant Name Role Phone Victor Hugo Rodrigues MD Primary Care Provider Un available Community, Pcp Primary Care Provider Unavailabl e Jayda Rasheed MD Primary Care Provide r Unavailable Encounter Details Date Type Department Care Team Description 07/10/2016 Release of Information Medical Records [address] [place] [id number] Abstract, Provider Social History Tobacco Use Types [...] on filedocumented in this encounter Care Teams Lifestyle Consultant Relationship Specialty Start Date End Date Victor Hugo Rodrigues MD PCP - General Internal Medicine 12/22/15 Community, Pcp PCP - General Internal Medicine 09/23/16 06/15/23 Jayda Rasheed MD PCP - General Internal Medicine 06/16/23 documented as of this encounter
--- OUTSIDE RECORDS SUMMARY | 2025-02-22 21:10 | XMS_ITS | Clinical Summary ---
Author Organization [facility] Address [address] [place] [address] Care Team Providers Care Design Checker Name Role Phone Jayda Rasheed MD Primary Care Provide r Unavailable Allergies Active Allergy Reactions Severity Noted Date Comments Diazepam 01/05/2016 bad reaction Cephalexin 08/16/2023 Metronidazole Rash/Dermatitis 01/05/2016 nitroimidazoles Penicillins 01/05/2016 Reaction not mentioned Medications Medication Sig Dispensed Refills Start Date End Date Status duloxetine (CYMBALTA) 60 MG capsule Take 60 mg by mouth daily. 0 Active tizanidine (ZANAFLEX) 4 MG tablet Take 4 mg by mouth every 8 hours as needed. 0 Active Zolpidem Tartrate 10 MG Tab Take by mouth at bedtime as needed. 0 Active Menthol, Topical Analgesic, 10 % Gel Apply topically. 0 Active clonazepam (KLONOPIN) 1 MG tablet Take 1 mg by mouth daily. 0 Active fluticasone 50 MCG/ACT nasal spray 2 Sprays by Each Nare route daily. 0 Active gabapentin (NEURONTIN) 300 MG capsule Take 300 mg by mouth 3 times daily. 0 Active lansoprazole (PREVACID) 30 MG capsule Take 30 mg by mouth daily. 0 Active Linaclotide 145 MCG Cap Take by mouth. Take on empty stomach 30 minutes before 1st meal of the day 0 Active Loratadine 10 MG Cap Take by mouth. 0 Active Meclizine HCl 12.5 MG Tab Take by mouth 3 times daily as needed. 0 Active Sennosides (SENNA) 8.6 MG Tab Take by mouth. Take 2 capsules at bedtime 0 Active quetiapine (SEROQUEL) 100 MG tablet Take 100 mg by mouth at bedtime. 0 Active topiramate (TOPAMAX) 100 MG tablet Take 100 mg by mouth 2 times daily. 0 Active tramadol (ULTRAM) 50 MG tablet Take 50 mg by mouth every 6 hours as needed. 0 Active ergocalciferol (ERGOCALCIFEROL) 50053 UNITS capsule Take 50,000 Units by mouth once a week. 0 Active Magnesium Oxide 400 MG Cap Take 1 Cap by mouth at bedtime. 1 tab at bedtime 30 Cap 5 01/13/2016 Active atorvastatin (LIPITOR) 20 MG tablet Take 1 Tab by mouth daily. 30 Tab 3 01/19/2016 Active almotriptan (AXERT) 12.5 MG tablet TAKE 1 TAB BY MOUTH NEEDED FOR MIGRAINE. MAY REPEAT IN 2 HOURS IF NEEDED 9 Tab 0 07/02/2016 Active meloxicam (MOBIC) 15 MG tablet Take 1 Tablet by mouth daily for 60 days. 30 Tablet 1 08/16/2023 Active Active Problems Problem Noted Date GERD (gastroesophageal reflux disease) 0 01/20/2017 Overview: F/u GII at [facility] Hallux valgus of right foot 01/05/2016 Overview: Calcaneal spurs 12/15/15 DDD (degenerative disc disease), lumbar 01/05/2016 Overview: 2103 spondylolisthesis L4-L5 / Spina bifida occulta S1 Fibromyalgia 01/05/2016 Overview: Following with rheumatology in [place] Migraine 01/05/2016 Vitamin D deficiency 01/05/2016 Recurrent major depression 01/05/2016 Overview: [address] Chronic abdominal pain 01/05/2016 Constipation 01/05/2016 Hypertriglyceridemia 01/05/2016 Renal calculi 01/05/2016 Immunizations Name Administration Dates Next Due Influenza (> 6 Months) 01/13/2016,02/27/2015 TD (STATE SUPPLIED FOR ADULTS AND CHILDREN) 04/26 Tdap 06/05/2012 Family History Relation Name Status Comments Daughter [...] Assigned at Date Recorded Not on file Last Filed Vital Signs Vital Sign Reading Time Taken Comments Blood Pressure 104/80 03/04/2016 3:27 PM EST Pulse 76 03/04/2016 3:27 PM EST Temperature 36.5 C (97.7 F) 01/13/2016 3:22 PM EDT Respiratory Rate 16 03/04/2016 3:27 PM EST Oxygen Saturation - - Inhaled Oxygen Concentration - - Weight 104.3 kg (230 lb) 10/05/2023 1:06 PM EDT Height 160 cm (5' 3 ) 10/05/2023 1:06 PM EDT Body Mass Index 40.74 10/05/2023 1:06 PM EDT Plan of Treatment Health Maintenance Due Date Last Done Comments Covid-19 Vaccine (#1) 1966 HEPATITIS C SCREENING 1984 BASELINE HEALTH EXAM 40-64 2006 COLON CANCER SCREENING 2016 MAMMOGRAM 10/21/2016 10/22/2015, 09/24, 10/14/2015 (External Completion), Additional history exists SHINGLES VACCINE (2 of 3) 10/10/2018 08/15/2018 CERVICAL CANCER SCREENING 03/04/20192015, 12/28/2012, 12/28/2012 (External Completion) CHOLESTEROL SCREENING 01/12/2021 01/13/2016 DTAP/TDAP/TD (2 - Td or Tdap) 06/05/2022 06/05/2012, 05/18/2005 BMI CHECK/ADVISE 04/25/2024 03/04/2016, 01/13/2016 DEPRESSION SCREENING/FOLLOWUP 04/25/2024, 01/13/2016, 01/05/2016 SOCIAL NEEDS SCREENING 04/25/2024 INFLUENZA (#1) 2024 01/07/2022, 12/25, 02/27/2015 TOBACCO CHECK/ADVISE 08/15/2025 08/16/2023 PNEUMOCOCCAL VACCINE FOR HIG H RISK PATIENTS (#1) 2031 Care Teams Design Checker Relationship Specialty Start Date End Date Jayda Rasheed MD PCP - General Internal Medicine 06/16/23
--- OUTSIDE RECORDS SUMMARY | 2025-02-22 21:10 | XMS_ITS | Encounter Summary ---
Author Organization [facility] Address [address] [place] [address] Care Team Providers Care Track Repair Laborer Name Role Phone Community, Pcp Primary Care Provider Jayda Avila MD Primary Care Provide r Unavailable Encounter Details Date Type Department Care Team Description 01/25/2017 Transfer Records Medical Records [address] [place] [address] Melina Orozco MD Social History Tobacco Use [...] on filedocumented in this encounter Care Teams Track Repair Laborer Relationship Specialty Start Date End Date Geraldine, Pcp PCP - General Internal Medicine 09/23/16 06/15/23 Jayda Rasheed MD PCP - General Internal Medicine 06/16/23 documented as of this encounter
--- OUTSIDE RECORDS SUMMARY | 2025-02-22 21:10 | XMS_ITS | Encounter Summary ---
Author Organization [employer] Address [address] [place] [address] [address] [place] [address] Care Team Providers Care Pc Tech Name Role Phone Jayda Patiño MD Primary Care Provide r Reason for Visit * Reason Comments Med Refill Encounter Details Date Type Department Care Team (Late st Contact Info) Description 12/31/2022 Refill [facility] MEDICINE [address] [place] [address] Adela Denney FNP Health care maintenance Social [...] Description 03/29/2025 1:00 PM EST Office Visit [facility] OPTOMETRY [address] [place] [address] Shama Barlow, OD [address] [place] [address] documented as of this encounter Visit Diagnoses Diagnosis Health care maintenance documented in this encounter Additional Health Concerns Assessment Noted Time PHQ-9 Depression Total Score: 14 023 1:24 PM EDT documented as of this encounter Care Teams Pc Tech Relationship Specialty Start Date End Date Jayda Patiño MD [address] [place] [address] PCP - General Family Medicine 04/05/19 documented as of this encounter
--- OUTSIDE RECORDS SUMMARY | 2025-02-22 21:10 | XMS_ITS | Encounter Summary ---
Author Organization [employer] Address [address] [facility] 7t [place] [address] Care Team Providers Care Hide Sorter Name Role Phone Jayda Patiño MD Primary Care Provide r Reason for Visit * Reason Comments Med Refill Encounter Details Date Type Department Care Team ([facility] st Contact Info) Description 01/14/2024 Refill [facility] MEDICINE [address] [place], [place] [phone] Celena Farias DO [address] [place] [address] Chronic rhinitis Social History Tobacco Use Types [...] Description 03/29/2025 1:00 PM EST Office Visit [facility] OPTOMETRY [address] [place] [address] Cain, Shama, OD [address] [place] [address] documented as of this encounter Visit Diagnoses Diagnosis Chronic rhinitis documented in this encounter Additional Health Concerns Assessment Noted Time PHQ-9 Depression Total Score: 14 024 10:05 AM EST documented as of this encounter Care Teams Hide Sorter Relationship Specialty Start Date End Date Jayda Patiño MD [address] [place] [address] PCP - General Family Medicine 04/05/19 documented as of this encounter
--- OUTSIDE RECORDS SUMMARY | 2025-02-22 21:10 | XMS_ITS | Encounter Summary ---
Author Organization [employer] [facility] Address [address] [place] [address] 7 [place] [address] Care Team Providers Care Stamp Pad Maker Name Role Phone Jayda Patiño MD Primary Care Provide r Reason for Visit * Reason Comments Med Refill Encounter Details Date Type Department Care Team (Late Contact Info) Description 08/30/2022 Refill [facility] MEDICINE [address] [place] [address] Jayda Patiño MD [address] [place] [address] Chronic right shoulder pain Social History Tobacco [...] [facility] OPT[facility] [address] [place] [address] Shama Barlow, EMI [address] [place] [address] documented as of this encounter Visit Diagnoses Diagnosis Chronic right shoulder pain Pain in joint, shoulder region documented in this encounter Care Teams Stamp Pad Maker Relationship Specialty Start Date End Date Jayda Patiño MD [address] [place] [address] PCP - General Family Medicine 04/05/19 documented as of this encounter
--- OUTSIDE RECORDS SUMMARY | 2025-02-22 21:10 | XMS_ITS | Encounter Summary ---
Author Organization [employer] [facility] Address [address] [place] [address] 7 [place] [address] Care Team Providers Care Edge Trimmer Mechanic Name Role Phone Jayda Patiño MD Primary Care Provide r Reason for Visit * Reason Comments Med Refill Encounter Details Date Type Department Care Team (Late st Contact Info) Description 05/22/2022 Refill [facility] [address] [place] [address] Celena Farias DO [address] [place] [address] Hypertension, unspecified type Social History Tobacco Use [...] Description 03/29/2025 1:00 PM EST Office Visit [facility] OPTOMETRY [address] [place], [place] [phone] Shama Barlow, OD [address] [place] [address] documented as of this encounter Visit Diagnoses Diagnosis Hypertension, unspecified type documented in this encounter Care Teams Edge Trimmer Mechanic Relationship Specialty Start Date End Date Jayda Patiño MD [address] [place] [address] PCP - General Family Medicine 04/05/19 documented as of this encounter
--- OUTSIDE RECORDS SUMMARY | 2025-02-22 21:10 | XMS_ITS | Encounter Summary ---
Author Organization [employer] Address [address] [facility] 7t [place] [address] Care Team Providers Care Station Master Name Role Phone Jayda Patiño MD Primary Care Provide r Reason for Visit * Reason Comments Med Refill Encounter Details Date Type Department Care Team ([facility] st Contact Info) Description 02/20/2024 Refill [facility] MEDICINE 230 [place], [place] [phone] Celena Farias DO 230 [place] [address] Chronic rhinitis Social History Tobacco Use Types [...] Office Visit [facility] OPTOMETRY [address] [place] [address] Cain, Shama, OD 230 [place] [address] documented as of this encounter Visit Diagnoses Diagnosis Chronic rhinitis documented in this encounter Additional Health Concerns Assessment Noted Time PHQ-9 Depression Total Score: 14 024 10:05 AM EST documented as of this encounter Care Teams Station Master Relationship Specialty Start Date End Date Jayda Patiño MD 230 [place] [address] PCP - General Family Medicine 04/05/19 documented as of this encounter
--- OUTSIDE RECORDS SUMMARY | 2025-02-22 21:10 | XMS_ITS | Encounter Summary ---
Author Organization [employer] Address 75 [facility] 7t [place] [address] Care Team Providers Care Continuous Mining Machine Coal Miner Name Role Phone Jayda Patiño MD Primary Care Provide r Reason for Visit * Reason Comments Med Refill Encounter Details Date Type Department Care Team ([facility] st Contact Info) Description 04/04/[address] [facility] MEDICINE 230 [place], [place] [phone] Marilee Whittaker MD 230 [place], [place] [phone] Chronic migraine without aura without status migrainosus, [...] Visit [facility] OPTOMETRY [address] [place], [place] [phone] Shama Barlow, OD 230 [place] [address] documented as of this encounter Visit Diagnoses Diagnosis Chronic migraine without aura without status migrainosus, not intractable documented in this encounter Additional Health Concerns Assessment Noted Time PHQ-9 Depression Total Score: 14 023 1:24 PM EDT documented as of this encounter Care Teams Continuous Mining Machine Coal Miner Relationship Specialty Start Date End Date Jayda Patiño MD 230 [place] [address] PCP - General Family Medicine 04/05/19 documented as of this encounter
--- OUTSIDE RECORDS SUMMARY | 2025-02-22 21:10 | XMS_ITS | Encounter Summary ---
Author Organization [employer] Address [address] [place] [address] 7 [place] [address] Care Team Providers Care Asphalt Plant Operator Name Role Phone Jayda Patiño MD Primary Care Provide r Reason for Visit * Reason Comments Med Refill Encounter Details Date Type Department Care Team (Late Contact Info) Description 12/04/2022 Refill [facility] MED[facility]INE [address] [place] [address] Jayda Patiño MD 230 [place] [address] Gastro-esophageal reflux disease without esophagitis Social History [...] Description 03/29/2025 1:00 PM EST Office Visit [facility] OPTOMETRY [address] [place] [address] Cain, Shama, OD 230 [place] [address] documented as of this encounter Visit Diagnoses Diagnosis Gastro-esophageal reflux disease without esophagitis documented in this encounter Additional Health Concerns Assessment Noted Time PHQ-9 Depression Total Score: 14 023 1:24 PM EDT documented as of this encounter Care Teams Asphalt Plant Operator Relationship Specialty Start Date End Date Jayda Patiño MD 230 [place] [address] PCP - General Family Medicine 04/05/19 documented as of this encounter
--- OUTSIDE RECORDS SUMMARY | 2025-02-22 21:10 | XMS_ITS | Encounter Summary ---
Author Organization [employer] [facility] Address [address] [place] [address] 7t [place] [address] Care Team Providers Care Cash Control Specialist Name Role Phone Jayda Patiño MD Primary Care Provide r Reason for Visit * Reason Comments Med Refill Encounter Details Date Type Department Care Team ([facility] Contact Info) Description 09/25/2022 Refill [facility] MEDICINE 230 [place] [address] Jayda Patiño MD 230 [place] [address] Chronic right shoulder pain Social History Tobacco [...] Upcoming Encounters Date Type Department Care Team ([facility] Contact Info) Description 03/29/2025 1:00 PM EST Office Visit [facility] OPTOMETRY [address] [place] [address] Cain, Shama, OD 230 [place], [place] [phone] documented as of this encounter Visit Diagnoses Diagnosis Chronic right shoulder pain Pain in joint, shoulder region documented in this encounter Additional Health Concerns Assessment Noted Time PHQ-9 Depression Total Score: 14 023 1:24 PM EDT documented as of this encounter Care Teams Cash Control Specialist Relationship Specialty Start Date End Date Jayda Patiño MD 230 [place] [address] PCP - General Family Medicine 04/05/19 documented as of this encounter
--- OUTSIDE RECORDS SUMMARY | 2025-02-22 21:10 | XMS_ITS | Encounter Summary ---
Author Organization [employer] Address [address] [place] [address] 7t [place] [address] Care Team Providers Care Senior Informatica Developer Name Role Phone Jayda Patiño MD Primary Care Provide r Reason for Visit * Reason Comments Med Refill Encounter Details Date Type Department Care Team ([facility] st Contact Info) Description 09/06/2022 Refill [facility] 230 [place] [address] Jayda Patiño MD [address] [place] [address] Chronic right shoulder pain Social History Tobacco [...] EST Office Visit [facility] [address] [place] [address] Shama Barlow, OD 230 [place] [address] documented as of this encounter Visit Diagnoses Diagnosis Chronic right shoulder pain Pain in joint, shoulder region documented in this encounter Additional Health Concerns Assessment Noted Time PHQ-9 Depression Total Score: 14 023 1:24 PM EDT documented as of this encounter Care Teams Senior Informatica Developer Relationship Specialty Start Date End Date Jayda Patiño MD 230 [place] [address] PCP - General Family Medicine 04/05/19 documented as of this encounter
--- OUTSIDE RECORDS SUMMARY | 2025-02-22 21:10 | XMS_ITS | Encounter Summary ---
Author Organization [employer] Address 75 [facility] 7t [place] [address] Care Team Providers Care Environmental Geologist Name Role Phone Jayda Patiño MD Primary Care Provide r Reason for Visit * Reason Comments Med Refill Encounter Details Date Type Department Care Team ([facility] st Contact Info) Description 04/29/2023 Refill [facility] MEDICINE 230 [place], [place] [phone] Marilee Whittaker MD 230 [place], [place] [phone] Hyperlipidemia, unspecified hyperlipidemia type; Chronic migraine without [...] 1:00 PM EST Office Visit [facility] OPTOMETRY [address] [place], [place] [phone] Cain, Shama, OD 230 [place] [address] documented as of this encounter Visit Diagnoses Diagnosis Hyperlipidemia, unspecified hyperlipidemia type Chronic migraine without aura without status migrainosus, not intractable Chronic rhinitis documented in this encounter Additional Health Concerns Assessment Noted Time PHQ-9 Depression Total Score: 14 023 1:24 PM EDT documented as of this encounter Care Teams Environmental Geologist Relationship Specialty Start Date End Date Jayda Patiño MD 230 [place], [place] [phone] PCP - General Family Medicine 04/05/19 documented as of this encounter
--- OUTSIDE RECORDS SUMMARY | 2025-02-22 21:10 | XMS_ITS | Encounter Summary ---
Author Organization [employer] Address 75 [facility] 7t [place] [address] Care Team Providers Care Field Artillery Senior Sergeant Name Role Phone Jayda Patiño MD Primary Care Provide r Reason for Visit * Reason Comments Med Refill Encounter Details Date Type Department Care Team ([facility] st Contact Info) Description 08/22/2024 Refill [facility] MED[facility] 230 [place] [address] Jayda Patiño MD 230 [place] [address] Pain of left heel Social History Tobacco [...] Visit [facility] OPTOMETRY [address] [place] [address] Cain, Shama, OD 230 [place] [address] documented as of this encounter Visit Diagnoses Diagnosis Pain of left heel documented in this encounter Additional Health Concerns Assessment Noted Time PHQ-9 Depression Total Score: 0 07/13/19 25 1:37 PM EDT documented as of this encounter Care Teams Field Artillery Senior Sergeant Relationship Specialty Start Date End Date Jayda Patiño MD 230 [place] [address] PCP - General Family Medicine 04/05/19 documented as of this encounter
--- OUTSIDE RECORDS SUMMARY | 2025-02-22 21:11 | XMS_ITS | Encounter Summary ---
Author Organization [employer] Address [address] [facility] 7t [place] [address] Care Team Providers Care Automotive Electrician Name Role Phone Jayda Patiño MD Primary Care Provide r Reason for Visit * Reason Onset Date Comments Med Refill 10/08/2024 Encounter Details Date Type Department Care Team (Late st Contact Info) Description 10/08/2024 Refill [facility] MEDICINE 230 [place] [address] Celena Farias, [address] [place] [address] Chronic rhinitis Social History Tobacco Use Types [...] EST Office Visit [facility] [address] [place] [address] Cain, Shama, OD 230 [place] [address] documented as of this encounter Visit Diagnoses Diagnosis Chronic rhinitis documented in this encounter Additional Health Concerns Assessment Noted Time PHQ-9 Depression Total Score: 0 07/13/19 25 1:37 PM EDT documented as of this encounter Care Teams Automotive Electrician Relationship Specialty Start Date End Date Jayda Patiño MD [address] [place] [address] PCP - General Family Medicine 04/05/19 documented as of this encounter
--- OUTSIDE RECORDS SUMMARY | 2025-02-22 21:11 | XMS_ITS | Encounter Summary ---
Author Organization [employer] Address [address] [facility] [address] 7[address] [place] [address] Care Team Providers Care Mammal Control Agent Name Role Phone Jayda Patiño MD Primary Care Provide r Reason for Visit * Reason Comments Med Refill Encounter Details Date Type Department Care Team ([facility] st Contact Info) Description 01/13/[address] [facility] MED & PEDS [address] [place], [place] [phone] [facility] 230 [place] [address] Vitamin D deficiency Social History Tobacco Use [...] 03/29/2025 1:00 PM EST Office Visit [facility] OPTOMETRY [address] [place] [address] Cain, Shama, OD 230 [place] [address] documented as of this encounter Visit Diagnoses Diagnosis Vitamin D deficiency documented in this encounter Additional Health Concerns Assessment Noted Time PHQ-9 Depression Total Score: 0 07/13/19 25 1:37 PM EDT documented as of this encounter Care Teams Mammal Control Agent Relationship Specialty Start Date End Date Jayda Patiño MD 230 [place] [address] PCP - General Family Medicine 04/05/19 documented as of this encounter
--- OUTSIDE RECORDS SUMMARY | 2025-02-22 21:11 | XMS_ITS | Encounter Summary ---
Author Organization [employer] Address [address] [facility] 7t [place] [address] Care Team Providers Care Operations Welder Name Role Phone Jayda Patiño MD Primary Care Provide r Reason for Visit * Reason Comments Med Refill Encounter Details Date Type Department Care Team ([facility] st Contact Info) Description 10/12/2024 Refill [facility] MEDICINE 230 [place] [address] Celena Farias DO 230 [place] [address] Polyarthralgia Social History Tobacco Use Types Packs/Day [...] Description 03/29/2025 1:00 PM EST Office Visit [facility] OPTOMETRY [address] [place] [address] Cain, Shama, OD 230 [place] [address] documented as of this encounter Visit Diagnoses Diagnosis Polyarthralgia Pain in joint, multiple sites documented in this encounter Additional Health Concerns Assessment Noted Time PHQ-9 Depression Total Score: 0 07/13/19 25 1:37 PM EDT documented as of this encounter Care Teams Operations Welder Relationship Specialty Start Date End Date Jayda Patiño MD [address] [place] [address] PCP - General Family Medicine 04/05/19 documented as of this encounter
--- OUTSIDE RECORDS SUMMARY | 2025-02-22 21:11 | XMS_ITS | Encounter Summary ---
Author Organization [employer] Address 75 [facility] 7t [place] [address] Care Team Providers Care Dish Washer Name Role Phone Jayda Patiño MD Primary Care Provide r Reason for Visit * Reason Comments Med Refill Encounter Details Date Type Department Care Team ([facility] st Contact Info) Description 11/12/2024 Refill [facility] MEDICINE 230 [place] [address] Jayda Patiño MD 230 [place] [address] Polyarthralgia Social History Tobacco Use Types Packs/Day [...] Description 03/29/2025 1:00 PM EST Office Visit [facility] OPTOMETRY [address] [place] [address] Cain, Shama, OD 230 [place] [address] documented as of this encounter Visit Diagnoses Diagnosis Polyarthralgia Pain in joint, multiple sites documented in this encounter Additional Health Concerns Assessment Noted Time PHQ-9 Depression Total Score: 0 07/13/19 25 1:37 PM EDT documented as of this encounter Care Teams Dish Washer Relationship Specialty Start Date End Date Jayda Patiño MD 230 [place] [address] PCP - General Family Medicine 04/05/19 documented as of this encounter
--- OUTSIDE RECORDS SUMMARY | 2025-02-22 21:11 | XMS_ITS | Encounter Summary ---
Author Organization [employer] Address [address] [facility] 7t [place] [address] Care Team Providers Care Surgical Instrument Maker Name Role Phone Jayda Patiño MD Primary Care Provide r Reason for Visit * Reason Comments Med Refill Encounter Details Date Type Department Care Team ([facility] st Contact Info) Description 11/05/2024 Refill [facility] MEDICINE 230 [place] [address] Jayda Patiño MD 230 [place] [address] Polyarthralgia; Migraine without aura, not refractory Social [...] PM EST Office Visit [facility] OPTOMETRY [address] [place] [address] Cain, Shama, OD 230 [place] [address] documented as of this encounter Visit Diagnoses Diagnosis Polyarthralgia Pain in joint, multiple sites Migraine without aura, not refractory documented in this encounter Additional Health Concerns Assessment Noted Time PHQ-9 Depression Total Score: 0 07/13/19 25 1:37 PM EDT documented as of this encounter Care Teams Surgical Instrument Maker Relationship Specialty Start Date End Date Jayda Patiño MD 230 [place] [address] PCP - General Family Medicine 04/05/19 documented as of this encounter
--- OUTSIDE RECORDS SUMMARY | 2025-02-22 21:11 | XMS_ITS | Encounter Summary ---
Author Organization [employer] Address [address] [facility] 7t [place] [address] Care Team Providers Care School Treasurer Name Role Phone Jayda Patiño MD Primary Care Provide r Reason for Visit * Reason Comments Med Refill Encounter Details Date Type Department Care Team ([facility] st Contact Info) Description 01/13/2025 Refill [facility] MEDICINE [address] [place] [address] Jayda Patiño MD 230 [place] [address] Chronic migraine without aura without status migrainosus, [...] 1:00 PM EST Office Visit [facility] OPTOMETRY [address] [place] [address] Shama Barlow, OD 230 [place] [address] documented as of this encounter Visit Diagnoses Diagnosis Chronic migraine without aura without status migrainosus, not intractable Hyperlipidemia, unspecified hyperlipidemia type Polyarthralgia Pain in joint, multiple sites Health care maintenance documented in this encounter Additional Health Concerns Assessment Noted Time PHQ-9 Depression Total Score: 0 07/13/19 25 1:37 PM EDT documented as of this encounter Care Teams School Treasurer Relationship Specialty Start Date End Date Jayda Patiño MD 230 [place] [address] PCP - General Family Medicine 04/05/19 documented as of this encounter
--- OUTSIDE RECORDS SUMMARY | 2025-02-22 21:11 | XMS_ITS | Encounter Summary ---
Author Organization [employer] Address [address] [facility] [address] [place] [address] Care Team Providers Care Rotary Drier Operator Name Role Phone Jayda Patiño MD Primary Care Provide r Reason for Visit * Reason Comments Med Refill Encounter Details Date Type Department Care Team ([facility] st Contact Info) Description 10/02/2024 Refill [facility] & PEDS [address] [place] [address] Jayda Patiño MD [address] [place] [address] Chronic rhinitis Social History Tobacco Use Types [...] [facility] OPTOMETRY [address] [place] [address] Cain, Shama, OD 230 [place] [address] documented as of this encounter Visit Diagnoses Diagnosis Chronic rhinitis documented in this encounter Additional Health Concerns Assessment Noted Time PHQ-9 Depression Total Score: 0 07/13/19 25 1:37 PM EDT documented as of this encounter Care Teams Rotary Drier Operator Relationship Specialty Start Date End Date Jayda Patiño MD 230 [place] [address] PCP - General Family Medicine 04/05/19 documented as of this encounter
--- OUTSIDE RECORDS SUMMARY | 2025-02-22 21:11 | XMS_ITS | Encounter Summary ---
Author Organization [email or web address] Address 75 [facility] 7t [place] [address] Care Team Providers Care Movie Editor Name Role Phone Jayda Patiño MD Primary Care Provide r Reason for Visit * Reason Comments Med Refill Encounter Details Date Type Department Care Team ([facility] st Contact Info) Description 09/09/2024 Refill [facility] MEDICINE 230 [place] [address] Jayda Patiño MD 230 [place] [address] Chronic bilateral low back pain without sciatica [...] EST Office Visit [facility] OPTOMETRY [address] [place] [address] Cain, Shama, OD 230 [place] [address] documented as of this encounter Visit Diagnoses Diagnosis Chronic bilateral low back pain without sciatica documented in this encounter Additional Health Concerns Assessment Noted Time PHQ-9 Depression Total Score: 0 07/13/19 25 1:37 PM EDT documented as of this encounter Care Teams Movie Editor Relationship Specialty Start Date End Date Jayda Patiño MD 230 [place] [address] PCP - General Family Medicine 04/05/19 documented as of this encounter
--- OUTSIDE RECORDS SUMMARY | 2025-02-22 21:11 | XMS_ITS | Encounter Summary ---
Author Organization [employer] Address [address] [facility] 7t [place] [address] Care Team Providers Care Sawsmith Name Role Phone Jayda Patiño MD Primary Care Provide r Reason for Visit * Reason Onset Date Comments Med Refill 10/08/2024 Encounter Details Date Type Department Care Team (Late st Contact Info) Description 10/08/2024 Refill [facility] MEDICINE 230 [place] [address] Jayda Patiño MD [address] [place] [address] Health care maintenance Social History Tobacco Use [...] PM EST Office Visit [facility] [address] [place] [address] Cain, Shama, OD [address] [place] [address] documented as of this encounter Visit Diagnoses Diagnosis Health care maintenance documented in this encounter Additional Health Concerns Assessment Noted Time PHQ-9 Depression Total Score: 0 07/13/19 25 1:37 PM EDT documented as of this encounter Care Teams Sawsmith Relationship Specialty Start Date End Date Jayda Patiño MD 230 [place] [address] PCP - General Family Medicine 04/05/19 documented as of this encounter
--- OUTSIDE RECORDS SUMMARY | 2025-02-22 21:11 | XMS_ITS | Encounter Summary ---
Author Organization [employer] Address [address] [facility] 7t [place] [address] Care Team Providers Care Tag Marker Name Role Phone Jayda Patiño MD Primary Care Provide r Reason for Visit * Reason Comments Med Refill Encounter Details Date Type Department Care Team ([facility] st Contact Info) Description 01/13/2025 Refill [facility] MEDICINE [address] [place] [address] Celena Farias DO [address] [place] [address] Chronic rhinitis Social History Tobacco Use Types [...] 03/29/2025 1:00 PM EST Office Visit [facility] OPTOMETRY [address] [place] [address] Cain, Shama, OD 230 [place] [address] documented as of this encounter Visit Diagnoses Diagnosis Chronic rhinitis documented in this encounter Additional Health Concerns Assessment Noted Time PHQ-9 Depression Total Score: 0 07/13/19 25 1:37 PM EDT documented as of this encounter Care Teams Tag Marker Relationship Specialty Start Date End Date Jayda Patiño MD 230 [place] [address] PCP - General Family Medicine 04/05/19 documented as of this encounter
== END ==
LOC: HO.SL 20:30
PROVIDERS: PCP Internal Medicine; Visit Provider Internal Medicine
DX: G47.33 Obstructive sleep apnea (adult) (pediatric) (principal)
CPT/HCPCS: 95810

== ENCOUNTER → 2025-02-22 21:00 | Outpatient (BNV) | payer MEDICAID, SELFPAY | PROVIDERS: PCP Internal Medicine; Visit Provider Internal Medicine | DX: G47.33 Obstructive sleep apnea (adult) (pediatric) (principal) | CPT/HCPCS: 95810 ==

== ENCOUNTER 2025-03-05 14:00 | Outpatient (AMB) | payer MEDICAID, SELFPAY ==
[2025-03-05 14:58] VITALS: BP 124/88; PULSE 58; O2SAT 99; BMI 38.9
--- NOTE | 2025-03-05 14:58 | MHC.OFFVIS ---
Vital Signs 03/05/25 14:58 Height 5 ft 4 in Weight 226 lb 6 oz BMI 38.9 BP 124/88 Blood Pressure Location Lt brachial Position Sitting Pulse 58 Pulse Source Pulse Oximeter Pulse Oximetry (%) 99 Intake Visit Reasons: ENP - ROSARIO-Conf Intake Note: Patient presents FIRE CAPTAIN ROSARIO. Patient states tires and fatigued all the time. Did not tolerate CPAP and not using(over 5years). Hard time falling/staying asleep. Goes to bed at 6pm wakes up at 5-9am. Wakes up 4-5times a night. No naps. Headaches at times that last all day. Last sleep study was over 5 years ago. Freight Conductor Required: Yes Freight Conductor Language: Sheriff Officer Services: Freight Conductor Present Freight Conductor Name: [id number] Information Interpreted: non-clinical & clinical Allergies cephalexin (From KEFLEX) Allergy (Intermediate, Verified 03/05/25 15:02) RASH diazepam (From VALIUM) Allergy (Intermediate, Verified 03/05/25 15:02) Anxiety menthol (From BenGay) Allergy (Intermediate, Verified 03/05/25 15:02) Rash methyl salicylate (From BenGay) Allergy (Intermediate, Verified 03/05/25 15:02) Rash Penicillins Allergy (Intermediate, Verified 03/05/25 15:02) RASH HPI Comments Details: 59 year old female referred to us by her pcp for an evaluation of ROSARIO, Dr.Maria Ro. 01/2022 HST c/w sleep apnea mild AHI 9 and O2 desaturation 82%, insufficient sleep data due to 41% sleep efficiency. 02/2025 PSG unable to sleep during this study, insufficient sleep. She was diagnosed with cpap over 5 years ago and could not tolerate the mask and would like to try again. She has a difficult time falling asleep, wakes up tired daily, she snores loudly, gasps for air, and denies bruxism. She has morning headaches lasting 2-3 hours, about 2-3x a week. She has radiating pulsating sensation temporally and pain in her neck to the forehead with a 5-8/severity, she takes Sumatriptan 5mg and they resolve. She denies parasomnias. She has fibromyalgia and goes to bed at 6pm and falls asleep at midnight, and she wakes up at 2am to goes to the bedroom. She is able to fall asleep after praying for about 30min. She has acid reflux and take medications daily. She has rls symptoms bilaterally with burning pain in her ankles, plantar surface of feet. She has a herniated disc at the l4/l5 level. Memory is stable. Mood can fluctuate based on pain due to joint pain and arthritis, in shoulders, hips, and knees. Diet is stable, she is trying to lose weight. She is inactive due to pain, however walks when pain free. [facility] Medical History Bilateral kidney stones Arthritis of left acromioclavicular joint Bursitis of left shoulder Daytime sleepiness Tendonitis of left rotator cuff Hydronephrosis with obstructing calculus Medication monitoring encounter Pre-op examination Renal calculi Injury of tendon of right rotator cuff TONIO (acute kidney injury) Kidney stones History of depression HTN (hypertension) Gout, arthritis Rotator cuff tendonitis Class 2 obesity GERD (gastroesophageal reflux disease) Renal colic Fibromyalgia Osteoarthritis Surgical History History of endometrial ablation Hx of cystoscopy H/O lithotripsy History of esophagogastroduodenoscopy (EGD) Hx of colonoscopy Family History Father Diabetes mellitus Hypercholesteremia Heart attack HTN (hypertension) Mother Diabetes mellitus HTN (hypertension) Heart attack Hypercholesteremia Cardiovascular disease Brother Liver cancer Brother Pancreatic cancer Brother Lymphoma Sister Cervical cancer Sister Cirrhosis of liver Family/Other Cancer Family/Other Ovarian cancer Social History Household Members: Family Are you a primary healthcare financial analyst to a significant other at home: No Do you presently have visiting nurse or other home services: No Alcohol intake: never Patient Tobacco Use Status: Former Tobacco user Tobacco use type: Cigarette Years Smoked: 25 +/- Second Hand Smoke Exposure: No Current occupational status: disabled Current occupation: rt handed Physical Exam Vital Signs: Last Vital Signs Pulse 58 03/05/25 14:58 BP 124/88 03/05/25 14:58 Pulse Ox 99 03/05/25 14:58 BMI result Body Mass Index 38.9 Const General: cooperative and no acute distress Nutritional Appearance: obese Orientation/consciousness: patient oriented x3 HEENT Face and sinus: Yes face symmetric Teeth and gingiva: other (mallampti score is 4) Eyes Pupils: Equal, round and reactive pupils present Neck Neck: Yes full ROM Resp Effort & Inspection: normal respiratory effort and able to speak in complete sentences Neuro General: patient oriented x3 and moves all extremities Cranial nerves: Yes Facial sensation intact/muscles of mastication intact, Yes Equal, round and reactive pupils present, Yes Normal accommodation reflex present, Yes Normal facial strength present, Yes Midline tongue present, Yes Ability to bilaterally rotate head present and Yes Ability to bilaterally elevate shoulders present Cognition (Neuro): normal cognition Motor exam (neuro): Abnormal motor strength present and Abnormal muscle tone present Psych Appearance: grossly normal Affect: normal affect Thought content: Normal thought content present Insight: Good insight present (Psych) Results Reviewed Results Reviewed: 01/2022 HST c/w sleep apnea mild AHI 9 and O2 desaturation 82%, insufficient sleep data due to 41% sleep efficiency. 02/2025 PSG unable to sleep during this study, insufficient sleep. Labs reviewed with pt. Assessment & Plan Assessment & Plan (1) Excessive daytime sleepiness: Code(s): G47.19 - Other hypersomnia Category: Medical (2) Loud snoring: Code(s): R06.83 - Snoring Category: Medical Plan HST - repeat due to 02/2025 PSG is c/w insuffient data due to poor sleep efficiency. Labs reviewed with pt. f/u in 3months Orders: Orders RT home sleep study Today G47.19 - Other hypersomnia Patient Instructions: Please complete the following fasting labs to rule out deficiencies. CBC/CMP/ B12/ Vit D/ TSH/ Homocysteine and MMA/ Ferritin. reviewed with pt. Sleep Hygiene provided: set a scheduled bedtime and wake time to help regulate the circadian rhythm and balance the release of pituitary hormones. Sleep in a dark room, temperatures below 68 degrees, and no devices n bed. Limit caffeinated products 6 hours prior to bed, and limit fluids 2-4 hours prior to bed. Gentle night yoga, diffusing essential oils, and playing soft music can be relaxing. Coding Level of Care Code New Pt Level 4 (73650) Diagnoses Excessive daytime sleepiness G47.19 Loud snoring R06.83
--- OUTSIDE RECORDS SUMMARY | 2025-03-05 15:39 | XMS_ITS | Encounter Summary ---
Author Organization [employer] Address [address] [facility] 7t [place] [address] Care Team Providers Care Group Billing Coordinator Name Role Phone Jayda Patiño MD Primary Care Provide r Reason for Visit * Reason Comments Med Refill Encounter Details Date Type Department Care Team ([facility] st Contact Info) Description 02/20/2024 Refill [facility] [address] [place] [address] Celena Farias DO [address] [place] [address] Chronic rhinitis Social History Tobacco Use Types [...] Description 03/29/2025 1:00 PM EST Office Visit [facility] OPTOMETRY [address] [place] [address] Cain, Shama, OD [address] [place] [address] documented as of this encounter Visit Diagnoses Diagnosis Chronic rhinitis documented in this encounter Additional Health Concerns Assessment Noted Time PHQ-9 Depression Total Score: 14 024 10:05 AM EST documented as of this encounter Care Teams Group Billing Coordinator Relationship Specialty Start Date End Date Jayda Patiño MD [address] [place] [address] PCP - General Family Medicine 04/05/19 documented as of this encounter
--- OUTSIDE RECORDS SUMMARY | 2025-03-05 15:39 | XMS_ITS | Encounter Summary ---
Author Organization [employer] Address [address] [facility] 7t [place] [address] Care Team Providers Care Bilingual Kindergarten Teacher Name Role Phone Jayda Patiño MD Primary Care Provide r Reason for Visit * Reason Comments Med Refill Encounter Details Date Type Department Care Team ([facility] st Contact Info) Description 01/14/2024 Refill [facility] MED[facility]INE [address] [place], [place] [phone] Celena Farias DO [address] [place] [address] Chronic rhinitis Social History Tobacco Use Types [...] PM EST Office Visit [facility] OPTOMETRY [address] [place] [address] Cain, Shama, OD [address] [place] [address] documented as of this encounter Visit Diagnoses Diagnosis Chronic rhinitis documented in this encounter Additional Health Concerns Assessment Noted Time PHQ-9 Depression Total Score: 14 024 10:05 AM EST documented as of this encounter Care Teams Bilingual Kindergarten Teacher Relationship Specialty Start Date End Date Jayda Patiño MD [address] [place] [address] PCP - General Family Medicine 04/05/19 documented as of this encounter
--- OUTSIDE RECORDS SUMMARY | 2025-03-05 15:39 | XMS_ITS | Encounter Summary ---
Author Organization [employer] Address [address] [facility] 7t [place] [address] Care Team Providers Care Therapeutic Recreation Specialist Name Role Phone Jayda Patiño MD Primary Care Provide r Reason for Visit * Reason Comments Med Refill Encounter Details Date Type Department Care Team ([facility] st Contact Info) Description 02/24/2023 Refill [facility] MEDICINE [address] [place] [address] Jayda Patiño MD [address] [place] [address] Chronic migraine without aura without status migrainosus, [...] [facility] OPTOMETRY [address] [place] [address] Shama Barlow, OD [address] [place] [address] documented as of this encounter Visit Diagnoses Diagnosis Chronic migraine without aura without status migrainosus, not intractable Vitamin D deficiency Chronic rhinitis Hyperlipidemia, unspecified hyperlipidemia type documented in this encounter Additional Health Concerns Assessment Noted Time PHQ-9 Depression Total Score: 14 023 1:24 PM EDT documented as of this encounter Care Teams Therapeutic Recreation Specialist Relationship Specialty Start Date End Date Jayda Patiño MD [address] [place] [address] PCP - General Family Medicine 04/05/19 documented as of this encounter
--- OUTSIDE RECORDS SUMMARY | 2025-03-05 15:39 | XMS_ITS | Encounter Summary ---
Author Organization [employer] Address [address] [facility] 7t [place] [address] Care Team Providers Care Water Hauler Name Role Phone Jayda Patiño MD Primary Care Provide r Reason for Visit * Reason Comments Med Refill Encounter Details Date Type Department Care Team ([facility] st Contact Info) Description 12/31/2023 Refill [facility] [place] MEDICINE [address] [place], [place] [phone] Marilee Whittaker MD [address] [place], [place] [phone] Chronic migraine without aura without status migrainosus, [...] Visit [facility] [place] OPTOMETRY [address] [place], [place] [phone] Shama Barlow, OD [address] [place] [address] documented as of this encounter Visit Diagnoses Diagnosis Chronic migraine without aura without status migrainosus, not intractable documented in this encounter Additional Health Concerns Assessment Noted Time PHQ-9 Depression Total Score: 14 024 10:05 AM EST documented as of this encounter Care Teams Water Hauler Relationship Specialty Start Date End Date Jayda Patiño MD [address] [place] [address] PCP - General Family Medicine 04/05/19 documented as of this encounter
--- OUTSIDE RECORDS SUMMARY | 2025-03-05 15:39 | XMS_ITS | Clinical Summary ---
Author Organization [employer] [facility] ity Address [address] [place] [address] Care Team Providers Care Vice President Of Talent Management Name Role Phone Jayda Patiño MD Primary Care Provide r Surgical History Surgery Date Site/Laterality Comments BUNIONECTOMY 2014 Left PROCEDURE: SD CORRJ HLX VLGS BNCTY SESMDC W/DOUBLE OSTEOTOMY OTHER SURGICAL HISTORY 12/28/12 PROCEDURE: OUTSIDE PAP SMEAR TUBAL LIGATION PROCEDURE: HISTORICAL TUBAL LIGATION EYE SURGERY Left PROCEDURE: HISTORICAL EYE SURGERY; COMMENT: EYELID CERVICAL BIOPSY W/ LOOP ELECTRODE EXCISION PROCEDURE: SD CONIZATION CERVIX W/WO D&C RPR ELTRD EXC; [...] Depression Screening 04/25/2024 COVID-19 Vaccine (1 - 2024-2 6 season) 2024 Influenza Vaccine (#1) 2024 6, [...] age to complete this topic Care Teams Vice President Of Talent Management Relationship Specialty Start Date End Date Jayda Patiño MD [address] [place] [phone] PCP - General 06/16/23
--- OUTSIDE RECORDS SUMMARY | 2025-03-05 15:39 | XMS_ITS | Encounter Summary ---
Author Organization [employer] Address [address] [facility] 7t [place] [address] Care Team Providers Care Water Resource Manager Name Role Phone Jayda Patiño MD Primary Care Provide r Encounter Details Date Type Department Care Team ([facility] st Contact Info) Description 02/02/2023 Abstract [facility] MEDICINE [address] [place] [address] Jayda Patiño MD [address] [place] [address] Social History Tobacco Use Types Packs/Day Years [...] Description 03/29/2025 1:00 PM EST Office Visit [facility] OPTOMETRY [address] [place], [place] [phone] Cain, Shama, OD [address] [place] [address] documented as of this encounter Procedures Procedure Name Priority Date/Time Associated Diagnosis Comments COLONOSCOPY Routine 05/10/2013 documented in this encounter Results * Hm Colonoscopy (05/10/2013) Colonoscopy Normal Normal Narrative Donna Bla - 05/10/2013 Recommended 10 year follow up us Historical Provider HEALTH MAINTENANCE Final Result documented in this encounter Visit Diagnoses Not on filedocumented in this encounter Additional Health Concerns Assessment Noted Time PHQ-9 Depression Total Score: 14 023 1:24 PM EDT documented as of this encounter Care Teams Water Resource Manager Relationship Specialty Start Date End Date Jayda Patiño MD [address] [place], [place] [phone] PCP - General Family Medicine 04/05/19 documented as of this encounter
--- OUTSIDE RECORDS SUMMARY | 2025-03-05 15:39 | XMS_ITS | Encounter Summary ---
Author Organization [employer] Address [address] [facility] 7t [place] [address] Care Team Providers Care Machine Cloth Examiner Name Role Phone Jayda Patiño MD Primary Care Provide r Reason for Visit * Reason Comments Med Refill Encounter Details Date Type Department Care Team ([facility] st Contact Info) Description 01/14/2024 Refill [facility] MEDICINE [address] [place] [address] Jayda Patiño MD [address] [place] [address] Health care maintenance Social History Tobacco Use [...] 1:00 PM EST Office Visit [facility] OPTOMETRY [address] [place], [place] [phone] Cain, Shama, OD [address] [place] [address] documented as of this encounter Visit Diagnoses Diagnosis Health care maintenance documented in this encounter Additional Health Concerns Assessment Noted Time PHQ-9 Depression Total Score: 14 024 10:05 AM EST documented as of this encounter Care Teams Machine Cloth Examiner Relationship Specialty Start Date End Date Jayda Patiño MD [address] [place], [place] [phone] PCP - General Family Medicine 04/05/19 documented as of this encounter
--- OUTSIDE RECORDS SUMMARY | 2025-03-05 15:39 | XMS_ITS | Encounter Summary ---
Author Organization [employer] Address [address] [facility] 7t [place] [address] Care Team Providers Care Indoor Landscape Architect Name Role Phone Jayda Patiño MD Primary Care Provide r Reason for Visit * Reason Onset Date Comments Med Refill 02/11/2025 Encounter Details Date Type Department Care Team (Late st Contact Info) Description 02/11/[address] [facility] MEDICINE [address] [place] [address] Jayda Patiño MD [address] [place] [address] Class 3 severe obesity due to excess [...] encounter Miscellaneous Notes * Telephone Encounter - Nan Bernard - 02/28/2025 4:28 PM EST Duplicated Encounter * Telephone Encounter - Aida Evangelista RN - 02/27/2025 1:23 PM EST TC placed to [facility]. They tried to run prescription for Zepbound 5mg while on the phone and it shows PA required. * Telephone Encounter - Ehsan Browning - 02/25/2025 1:55 PM EST TC from pt wanting status of zepbound . Per PA specialist PA is not required as the original PA is good until 03/09 . Requesting nurses to contact pharmacy to advise and have them override isabel . * Addendum Note - Jeanne Jimenez RN - 02/20/2025 11:42 AM EDTAddended by: JEANNE JIMENEZ on: 02/20/2025 11:42 AM Modules accepted: Orders * Telephone Encounter - Karolina Tompkins - 02/20/2025 11:04 AM EDT Tc from pt requesting status on PA. Also requesting status on new scrip for ibuprofen 400 MG tablet Contact pt at [phone] Need production painter * Telephone Encounter - Aida Evangelista RN [...] AM EDT Zepbound was sent to [id number] on 01/09/25 with 2 refills and Ibuprofen was discontinued. * Telephone Encounter - Gabriel Verma - 02/11/2025 11:36 AM EDT TC from pt requesting medication refill. Medications needing refill : Tirzepatide-Weight Management (Zepbound) 5 MG/0.5ML solution auto-injector ibuprofen 400 MG tablet To be sent to: [facility]/pharmacy #[id number] [place] [address] - [address] [place] [address] . documented in this encounter Plan of Treatment Upcoming Encounters Date Type Department Care Team (Late st Contact Info) Description 03/29/2025 1:00 PM EST Office Visit [facility] OPTOMETRY [address] [place] [address] Shama Barlow, OD [address] [place] [address] documented as of this encounter Visit Diagnoses Diagnosis Class 3 severe obesity due to excess calories with serious comorbidity and body mass index (BMI) of 40.0 to 44.9 in adult (HCC) documented in this encounter Additional Health Concerns Assessment Noted Time PHQ-9 Depression Total Score: 5 01/24/20 25 2:37 PM EDT documented as of this encounter Care Teams Indoor Landscape Architect Relationship Specialty Start Date End Date Jayda Patiño MD [address] [place] [address] PCP - General Family Medicine 04/05/19 documented as of this encounter
--- OUTSIDE RECORDS SUMMARY | 2025-03-05 15:40 | XMS_ITS | Encounter Summary ---
Author Organization [employer] [facility] Address [address] [place] [address] [address] [place] [address] Care Team Providers Care Table Games Supervisor Name Role Phone Jayda Patiño MD Primary Care Provide r Reason for Visit * Reason Comments Med Refill Encounter Details Date Type Department Care Team (Late st Contact Info) Description 06/09/2022 Refill [facility] MED[facility]INE [address] [place] [address] Lissette White MD [address] [place] [address] Chronic rhinitis Social History Tobacco Use Types [...] Office Visit [facility] OPTOMETRY [address] [place] [address] Shama Barlow, OD [address] [place] [address] documented as of this encounter Visit Diagnoses Diagnosis Chronic rhinitis documented in this encounter Care Teams Table Games Supervisor Relationship Specialty Start Date End Date Jayda Patiño MD [address] [place] [address] PCP - General Family Medicine 04/05/19 documented as of this encounter
--- OUTSIDE RECORDS SUMMARY | 2025-03-05 15:40 | XMS_ITS | Encounter Summary ---
Author Organization [employer] Address [address] [facility] [address]t [place] [address] Care Team Providers Care Continuity Director Name Role Phone Jayda Patiño MD Primary Care Provide r Reason for Visit * Reason Onset Date Comments Med Refill 03/05/2025 Encounter Details Date Type Department Care Team (Late st Contact Info) Description 03/05/2025 Refill [facility] MEDICINE [address] [place] [address] Jayda Patiño MD [address] [place] [address] Class 3 severe obesity due to excess [...] Office Visit [facility] OPTOMETRY [address] [place] [address] Shama Barlow, OD [address] [place] [address] documented as of this encounter Visit Diagnoses Diagnosis Class 3 severe obesity due to excess calories with serious comorbidity and body mass index (BMI) of 40.0 to 44.9 in adult (HCC) documented in this encounter Additional Health Concerns Assessment Noted Time PHQ-9 Depression Total Score: 5 01/24/20 25 2:37 PM EDT documented as of this encounter Care Teams Continuity Director Relationship Specialty Start Date End Date Jayda Patiño MD [address] [place] [address] PCP - General Family Medicine 04/05/19 documented as of this encounter
--- OUTSIDE RECORDS SUMMARY | 2025-03-05 15:40 | XMS_ITS | Encounter Summary ---
Author Organization [employer] Address [address] [facility] [address]t [place] [address] Care Team Providers Care Digitizer Operator Name Role Phone Jayda Patiño MD Primary Care Provide r Reason for Visit * Reason Comments Med Refill Encounter Details Date Type Department Care Team ([facility] st Contact Info) Description 04/29/2023 Refill [facility] MEDICINE [address] [place], [place] [phone] Marilee Whittaker MD [address] [place], [place] [phone] Hyperlipidemia, unspecified hyperlipidemia type; Chronic migraine without [...] [facility] OPTOM[facility]RY [address] [place], [place] [phone] Cain, Shama, OD [address] [place] [address] documented as of this encounter Visit Diagnoses Diagnosis Hyperlipidemia, unspecified hyperlipidemia type Chronic migraine without aura without status migrainosus, not intractable Chronic rhinitis documented in this encounter Additional Health Concerns Assessment Noted Time PHQ-9 Depression Total Score: 14 023 1:24 PM EDT documented as of this encounter Care Teams Digitizer Operator Relationship Specialty Start Date End Date Jayda Patiño MD [address] [place], [place] [phone] PCP - General Family Medicine 04/05/19 documented as of this encounter
--- OUTSIDE RECORDS SUMMARY | 2025-03-05 15:40 | XMS_ITS | Encounter Summary ---
Author Organization [employer] Address [address] [facility] [address]t [place] [address] Care Team Providers Care Editor In Chief Name Role Phone Jayda Patiño MD Primary Care Provide r Reason for Visit * Reason Onset Date Comments Med Refill 10/08/2024 Encounter Details Date Type Department Care Team (Late st Contact Info) Description 10/08/2024 Refill [facility] MEDICINE [address] [place] [address] Celena Farias, [address] [place] [address] Chronic rhinitis Social History Tobacco Use Types [...] EST Office Visit [facility]RY [address] [place] [address] Cain, Shama, OD [address] [place] [address] documented as of this encounter Visit Diagnoses Diagnosis Chronic rhinitis documented in this encounter Additional Health Concerns Assessment Noted Time PHQ-9 Depression Total Score: 0 07/13/19 25 1:37 PM EDT documented as of this encounter Care Teams Editor In Chief Relationship Specialty Start Date End Date Jayda Patiño MD [address] [place] [address] PCP - General Family Medicine 04/05/19 documented as of this encounter
--- OUTSIDE RECORDS SUMMARY | 2025-03-05 15:40 | XMS_ITS | Encounter Summary ---
Author Organization [employer] Address [address] [facility] 7t [place] [address] Care Team Providers Care Hematology Nurse Name Role Phone Jayda Patiño MD Primary Care Provide r Reason for Visit * Reason Comments Med Refill Encounter Details Date Type Department Care Team ([facility] st Contact Info) Description 02/16/2025 Refill [facility] [address] [place] [address] Jayda Patiño MD [address] [place] [address] Polyarthralgia Social History Tobacco Use Types Packs/Day [...] 1:00 PM EST Office Visit [facility] OPT[facility]ETRY [address] [place] [address] Cain, Shama, OD [address] [place] [address] documented as of this encounter Visit Diagnoses Diagnosis Polyarthralgia Pain in joint, multiple sites documented in this encounter Additional Health Concerns Assessment Noted Time PHQ-9 Depression Total Score: 5 01/24/20 25 2:37 PM EDT documented as of this encounter Care Teams Hematology Nurse Relationship Specialty Start Date End Date Jayda Patiño MD [address] [place] [address] PCP - General Family Medicine 04/05/19 documented as of this encounter
--- OUTSIDE RECORDS SUMMARY | 2025-03-05 15:40 | XMS_ITS | Encounter Summary ---
Author Organization [employer] Address [address] [facility] 7t [place] [address] Care Team Providers Care Assessment Nurse Name Role Phone Jayda Patiño MD Primary Care Provide r Reason for Visit * Reason Comments Med Refill Encounter Details Date Type Department Care Team ([facility] st Contact Info) Description 03/05/2025 Refill [facility] [address] [place] [address] Jayda Patiño MD [address] [place] [address] Polyarthralgia Social History Tobacco Use Types Packs/Day [...] [facility] OPTOMETRY [address] [place] [address] Cain, Shama, OD 230 [place] [address] documented as of this encounter Visit Diagnoses Diagnosis Polyarthralgia Pain in joint, multiple sites documented in this encounter Additional Health Concerns Assessment Noted Time PHQ-9 Depression Total Score: 5 01/24/20 25 2:37 PM EDT documented as of this encounter Care Teams Assessment Nurse Relationship Specialty Start Date End Date Jayda Patiño MD [address] [place] [address] PCP - General Family Medicine 04/05/19 documented as of this encounter
--- OUTSIDE RECORDS SUMMARY | 2025-03-05 15:40 | XMS_ITS | Encounter Summary ---
Author Organization [employer] Address [address] [place] [address] 7t [place] [address] Care Team Providers Care Crew Director Name Role Phone Jayda Patiño MD Primary Care Provide r Reason for Visit * Reason Comments Med Refill Encounter Details Date Type Department Care Team ([facility] Contact Info) Description 07/30/2022 Refill [facility] [address] [place] [address] Lia Edwards FNP [address] [place] [address] Chronic right shoulder pain Social History Tobacco [...] Office Visit [facility] OPTOMETRY [address] [place] [address] Shama Barlow, OD 230 [place] [address] documented as of this encounter Visit Diagnoses Diagnosis Chronic right shoulder pain Pain in joint, shoulder region documented in this encounter Care Teams Crew Director Relationship Specialty Start Date End Date Jayda Patiño MD [address] [place] [address] PCP - General Family Medicine 04/05/19 documented as of this encounter
--- OUTSIDE RECORDS SUMMARY | 2025-03-05 15:40 | XMS_ITS | Clinical Summary ---
Author Organization [employer] Address [address] [place] [address] 7t [place] [address] Care Team Providers Care Inside Meter Tester Name Role Phone Jayda Patiño MD Primary [...] Encounters Date Type Department Care Team Description 03/05/2025 Refill [facility] [address] [place] [address] Jayda Patiño MD Class 3 severe obesity due to excess calories with serious comorbidity and body mass index (BMI) of 40.0 to 44.9 in adult (HCC) 03/05/2025 Refill [facility] [address] [place] [address] Jayda Patiño MD Polyarthralgia 03/01/2025 Results Follow-Up [facility] [address] [place] [address] Jayda Patiño MD Polysomnography 02/28/2025 Telephone [facility] [address] [place] [address] Jayda Patiño MD Prior Auth Prescription ( PA: [employer]) 02/16/2025 Refill [facility] [address] [place] [address] Jayda Patiño MD Polyarthralgia 02/14/[address] [address] Jayda Patiño MD Med Refill 02/11/2025 Refill [facility] [address] [place] [address] Jayda Patiño MD Class 3 severe obesity due to excess calories with serious comorbidity and body mass index (BMI) of 40.0 to 44.9 in adult (HCC) 02/07/2025 Refill [facility] [address] [place] [address] Celena Farias DO Chronic rhinitis 02/07/2025 Refill [facility] [address] [place], [place] [phone] [facility] Vitamin D deficiency 02/07/2025 Refill [facility] [address] [place] [address] Jayda Patiño MD Hyperlipidemia, unspecified hyperlipidemia type; Chronic migraine without aura without status migrainosus, not intractable; Health care maintenance; Vitamin D deficiency; Chronic rhinitis 02/02/2025 Refill [facility] [address] [place] [address] Jayda Patiño MD Polyarthralgia 01/29/2025 Orders Only [facility] [address] [place] [address] Jayda Patiño MD 01/23/2025 2:45 PM EDT Telemedicine [address] [address] Jayda Patiño MD Class 3 severe obesity due to excess calories with serious comorbidity and body mass index (BMI) of 40.0 to 44.9 in adult (HCC) (Primary Dx); Chronic fatigue; ROSARIO (obstructive sleep apnea); Dietary counseling; Exercise counseling 01/23/2025 Travel 01/22/2025 Telephone [facility] [address] [place] [address] Jayda Patiño MD Chart Prep 01/15/[address] [address] Jayda Patiño MD 01/13/2025 Refill [facility] [address] [place] [address] [place], Lora, CRYPTOANALYSIS TEACHER Vitamin D deficiency 01/13/2025 Refill [facility] [address] [place] [address] Celena Farias DO Chronic rhinitis 01/13/2025 Refill [facility] [address] [place] [address] Jayda Patiño MD Chronic migraine without aura without status migrainosus, not intractable; Hyperlipidemia, unspecified hyperlipidemia type; Polyarthralgia; Health care maintenance 01/09/2025 5:00 PM EDT Office Visit [facility] [address] [place] [address] Lorenzo Banegas MD Epigastric pain (Primary Dx); Bloating 01/09/2025 Travel 01/03/2025 Refill [facility] [address] [place] [address] Jayda Patiño MD Polyarthralgia; Migraine without aura, not refractory 12/19/2024 Refill [facility] [address] [place] [address] Jayda Patiño MD Class 3 severe obesity [...] the past 12 months, has t he [employer], gas, oil or water company threatened to [...] EST Office Visit [facility] OPTOMETRY [address] [place] [address] Cain, Shama, OD [address] [place] [address] Health Maintenance Due Date Last Done Comments [...] 05/18/2005, 01/25/1995 COVID-19 Vaccine (1 - season) 2024 Influenza Vaccine (#1) 2024 , 03/17/2021, 01/08/2020, Additional history exists Alcohol/Substance Use Screening 07/12/2025 07/12/2024 SDOH Screening 07/12/2025 07/12/2024 Tobacco Screening 01/09/2026 01/09/2025 Depression Screening 01/23/2026 01/23/2025, 01/24/20 Diabetes: Hemoglobin A1C 01/24/2026 025, 04/23/2024, 09/06/2022, Additional history exists Mammogram 01/29/2026 01/29/2025, 04/2023, 01/18/2023, Additional history exists Colonoscopy 08/17/2026 08/18/2023, [...] Procedure Name Priority Date/Time Associated Diagnosis Comments POLYSOMNOGRAM Routine 02/22/2025 ROSARIO (obstructive sleep apnea) BI MAMMOGRAM SCREENING TOMOSYNTHESIS BILATERAL Routine 01/29/2025 [...] Recently Relevant to Health Maintenance Results * Polysomnography (02/22/2025) us Jayda Mcelroy MD [facility] ORDERABL ES Final Result * BI Mammogram Screening Tomosynthesis Bilateral (01/29/2025 12:34 PM EDT) Anatomical Region Laterality Modality Breast Bilateral Mammography 01/29/2025 12:3 4 PM EDT Narrative 02/05/2025 5:19 PM EDT [facility] [address] [place], [place] [address] Mammography Report Signed Patient: Milady Dean MR#: [id number] : 1965 Acct:[id number] Age/Sex: 59 / F ADM Date: 01/29/25 Loc: HO.MAMMO Attending Dr: Jayda Mcelroy MD Ordering Physician: Jayda Patiño MD Results: 1Negative Date of Service: 01/29/25 Follow Up: 1 Year From Orig inal Mammogram Procedure(s): MM tomosynthesis screening BI Accession Number(s): [id number] cc: Jayda Patiño MD Reason For Exam: [...] 02/05/25 1716 DD/ 1234 TD/TT: 01/29/25 1230 Senior Merchandiser: Procedure Note Donotuseinterpreter, Image - 02/05/2025 [facility] [address] [place] [address] [place] [address] Mammography Report Signed Patient: Milady DeanMR#: [id number] : 1965Acct:[id number] Age/Sex: 59 / FADM Date: 01/29/25 Loc: HO.MAMMO Attending Dr: Jayda Mcelroy MD Ordering Physician: Jayda Patiño MDResults: 1Negative Date of Service: 01/29/25Follow Up: 1 Year From [facility] Mammogram Procedure(s): MM tomosynthesis screening BI Accession Number(s): [id number] cc: Jayda Patiño MD Reason For Exam: [...] 02/05/25 1716 DD/ 1234 TD/TT: 01/29/25 1230 Senior Merchandiser: us Jayda Mcelroy MD IMG BI PROCEDURES Fin al Result * Vitamin D, 25-Hydroxy, Total, Immunoassay (01/24/2025 11:36 AM EDT) Vitamin D 25-OH Total 60.3 >30 ng/mL [facility] Comment: Health Based Reference Values*< 20 ng/mL Gxjzuxrma50-96 ng/mL Insufficient> 30 ng/mL Sufficient*[place] MULTANI. N [...] BLOOD ORDERABLES Final Result Performing Organization Address City/[facility] Co de Phone Number [facility] [address] [place] [phone] * TSH with Reflex to Free T4 (01/24/2025 11:36 AM EDT) Pathologist [facility] TSH reflex Free T4 1.88 0.32 - 4.0 uIU/mL [facility] Blood Venous blood specimen / Unknown 01/24/2025 11:36 AM EDT 01/24/2025 1:17 PM EDT us Jayda Mcelroy MD LAB BLOOD ORDERABLES Final Result Performing Organization Address City/[facility] Co de Phone Number [facility] [address] [place] [address] [phone] * (ABNORMAL) CBC auto differential (01/24/2025 11:36 AM EDT) Pathologist [facility] White Blood Count 7.2 4.8 - 10.8 X10*3/uL [facility] Red Blood Count 5.08 4.20 - 5.50 X10*6/uL [facility] Hemoglobin 15.6 12.0 - 16.0 g/dl [facility] Hematocrit 47.1(H) 37.0 - 47.0 % [facility] Mean Corpuscular Volume 92.7 80.0 - 98.0 fL [facility] Mean Corpuscular Hemoglobin 30.7 27.0 - 33.0 pg [facility] Mean Corpuscular HGB Conc 33.1 31.0 - 35.0 g/dl [facility] Red Cell Distribution Width 13.2 11.0 - 16.0 % [facility] Platelet Count 209 160 - 400 X10*3/uL [facility] Mean Platelet Volume 12.5(H) 9.4 - 12.3 fL [facility] Neutrophils Percent Auto 57.5 45 - 73 % [facility] Imm Gran Pct Auto 0.1 0.0 - 0.4 % [facility] Lymphocytes Percent Auto 32.5 20 - 40 % [facility] Monocytes Percent Auto 6.7 2 - 11 % [facility] Eosinophils Percent Auto 2.5 0 - 4 % [facility] Basophils Percent Auto 0.7 0 - 2 % [facility] NRBC Pct Auto 0.0 0.0 - 0.2 /100WBC [facility] Neutrophils Absolute Auto 4.1 2.0 - 8.3 x10*3/uL [facility] Imm Gran Abs Auto 0.01 0.00 - 0.03 X10*3/uL [facility] Lymphocytes Absolute Auto 2.3 1.2 - 4.9 X10*3/uL [facility] Monocytes Absolute Auto 0.5 0.1 - 1.2 X10*3/uL [facility] Eosinophils Absolute Auto 0.2 0.0 - 0.4 X10*3/uL [facility] Basophils Absolute Auto 0.1 0.0 - 0.2 X10*3/uL [facility] NRBC Abs Auto 0.000 0.0 - 0.012 X10*3/uL [facility] Blood Venous blood specimen / Unknown 01/24/2025 11:36 AM EDT 01/24/2025 1:17 PM EDT Jayda Mcelroy MD LAB BLOOD ORDERABLES Final Result Performing Organization Address City/[facility]/ZIP Co de Phone Number [facility] [address] [place] [phone] * Hepatitis C Antibody with Reflex to HCV, RNA, Quantitative, Real-Time PCR (01/24/2025 11:36 AM EDT) Hepatitis C Antibody Nonreactive Nonreactive [facility] Comment:Antibodies to HCV no t detected; does not exclude early acuteHCV infection. Blood Venous blood specimen / Unknown 01/24/2025 11:36 AM EDT 01/24/2025 1:17 PM EDT Jayda Mcelroy MD LAB BLOOD ORDERABLES Final Result Performing Organization Address [facility] Co de Phone Number [facility] [address] [place] [phone] * HIV-1/2 Antigen and Antibodies, Fourth Generation, with Reflexes (01/24/2025 11:36 AM EDT) HIV AB/AG Nonreactive Nonreactive [facility] Comment:HIV-1 p24 Ag and/or HIV-1/HIV-2 Ab not detected.A test result that is nonreactive does not exclude thepossibility of exposure to or infection with HIV-1 and/orHIV-2. Nonreactive results in this assay for individualswith prior exposure to HIV-1 and/or HIV-2 may be due toantigen and antibody levels that are below the limit ofdetection of this assay.The BView HIV Ag/Ab Combo assay result andsupplemental assay results should be interpreted inconjunction with the patient's clinical presentation,history and other laboratory results. If the results areinconsistent with clinical evidence, additional testing issuggested to confirm the result. Blood Venous blood specimen / Unknown 01/24/2025 11:36 AM EDT 01/24/2025 1:17 PM EDT Jayda Mcelroy MD LAB BLOOD ORDERABLES Final Result Performing Organization Address City/[facility]/ZIP Co de Phone Number [facility] [address] [place] [phone] * Hemoglobin A1c (01/24/2025 11:36 AM EDT) Hemoglobin A1c 5.0 <6.0 % [facility] Comment:Hemoglobin A1C Refer ence Range Adults: 4.8 - 6.0 % Non diabetic: < 6.0 % Goal: < 7.0 %Additional Action Suggested: > 8.0 %Note: Hemoglobin A1c results are invalid for patients with abnormal amounts of HbF. Blood transfusions may impact the HbA1c concentration in the patient sample. Estimated Average Glucose 97 mg/dL [facility] Comment:eAG = Estimated ave rage glucose which is %A1C expressed asaverage glucose, using the formula of the H1N-LlkabccJenctsb Glucose study (ADAG), Diabetes Care, Vol.31,#8,Aug. 2007 Blood Venous blood specimen / Unknown 01/24/2025 11:36 AM EDT 01/24/2025 1:17 PM EDT us Jayda Mcelroy MD LAB BLOOD ORDERABLES Final Result Performing Organization Address City/[facility]/ZIP Co de Phone Number [facility] [address] [place] [phone] * (ABNORMAL) Lipid Panel, Standard (01/24/2025 11:36 AM EDT) Triglycerides 180(H) <150 mg/dL [facility] Comment:Desirable Triglyceri de: less than 150 mg/dLBorderline High Triglyceride 150-199 mg/dLHigh Triglyceride: 200-499 mg/dLVery High Triglyceride: greater than or equal to 5OO mg/dL Cholesterol 167 <200 mg/dL [facility] Comment:Desirable Cholestero l: less than 200 mg/dLBorderline High Cholesterol: 200-239 mg/dLHigh Cholesterol: greater than 239 mg/dL LDL Cholesterol Calculated 100(H) <100 mg/dL [facility] Comment:Desirable LDL: less than 100 mg/dLNear Optimal/Above Optimal LDL: 110- 129 mg/dLBorderline High LDL: 130-159 mg/dLHigh LDL: 160-189 mg/dLVery High LDL: greater than or equal to 190 mg/dL HDL Cholesterol 31(L) >40 mg/dL [facility] Comment:Desirable HDL: great er than 40 mg/dL Note: This HDL assay may give artificially low results in patients with liver disease. Blood Venous blood specimen / Unknown 01/24/2025 11:36 AM EDT 01/24/2025 1:17 PM EDT Jayda Mcelroy MD LAB BLOOD ORDERABLES Final Result [facility] [address] [place] [phone] * (ABNORMAL) Comprehensive Metabolic Panel (01/24/2025 11:36 AM EDT) Sodium 140 135 - 145 mmol/L [facility] Potassium 4.4 3.3 - 5.1 mmol/L [facility] Chloride 106 96 - 108 mmol/L [facility] Carbon Dioxide 29 22 - 29 mmol/L [facility] Anion Gap 9(L) 12 - 20 [facility] Urea Nitrogen (BUN) 14 9 - 16 mg/dL [facility] Creatinine, Serum 1.13 0.5 - 1.4 mg/dL [facility] Estimated Glomerular Filt Rate 49 [facility] Comment:Chronic Kidney Disea se: Estimated GFR < 60 mL/min/1.68o3Hpfwju Kidney Disease: Estimated GFR < 15 mL/min/1.73m2 Glucose 99 60 - 115 mg/dL [facility] Calcium 9.0 8.4 - 10.2 mg/dL [facility] Bilirubin, Total 0.5 0.0 - 1.0 mg/dL [facility] Aspartate Amino Transferase 34(H) 5 - 31 U/L [facility] Alanine Aminotransferase 30 0 - 31 U/L [facility] Total Protein 6.9 6.5 - 8.0 g/dL [facility] Albumin Level 4.3 3.5 - 5.0 g/dL [facility] Alkaline Phosphatase 88 39 - 117 U/L [facility] Blood Venous blood specimen / Unknown 01/24/2025 11:36 AM EDT 01/24/2025 1:17 PM EDT Jayda Mcelroy MD LAB BLOOD ORDERABLES Final Result Performing Organization Address City/State/[facility] Co de Phone Number [facility] [address] [place] [phone] * Hm Colonoscopy (08/18/2023 10:07 AM EDT) Colonoscopy Normal Normal Narrative Donna Bal - 08/18/2023 10:07 AM EDT Repeat Colonoscopy in 3 years due to polyps and fair prep on right side or earlier if clinically indicated see the external hospital admission note on 08/18/2023 Historical Provider HEALTH MAINTENANCE Edited Result - Final * HPV mRNA E6/E7 w/Reflex to HPV Genotypes 16, 18/45 (07/01/2023 2:31 PM EST) HPV nRNA E6/E7 Not Detected Not Detected [facility] Comment:Methodology: Transcr iption-Mediated AmplificationThis assay detects E6/E7 viral messenger RNA (mRNA) from 14high-risk HPV types (16,18,31,33,35,39,45,51,52,56,58,59,66,68).Cervical sources are required for HPV testing.If a vaginal source from a patient who has had atotal hysterectomy with removal of cervix wassubmitted, please contact the testing laboratoryfor alternative testing options.For additional information, please refer [email or web address]/faq/JYP804w0(This link if provided for information/educational purposes only.)THIS TEST WAS PERFORMED AT:[employer] [place] [phone] SANCHEZ MD HPV mRNA E6/E7 TNP [facility] HPV 16 RNA TNP [facility] HPV 18/45 RNA TNP [facility] 07/01/2023 2:31 PM EST 07/04/2023 8:45 AM EDT [facility] CYTOLOGY ORDERABLES Final Result [facility] [address] [place] [phone] * Pap Smear (07/01/2023 2:31 PM EST) Swab Cervix uteri structure / Unknown 07/01/2023 2:31 PM EST 07/04/2023 8:45 AM EDT Narrative [facility] - 07/12/2023 9:30 AM EDT ----- ------- Name: Milady Dean Age/Sex: 58/F : 1965 Unit#: [id number] Attend Dr: Lora Wise [facility] Re07/01/23 Status: DEP [facility] Disch: ----- ------- SPEC : [id number] RECD: 07/04/23 STATUS: CLOVER SAAVEDRA NUM: [id number] TAMEKA: 07/01/23-[address]: Lora Wise ENTERED: 07/04/23 SP TYPE: Pap Smr OTHR DR: ORDERED: Pap Smear Interpretation Satisfactory for evaluation. No endocervical cells seen. Cytolysis noted. Negative for intraepithelial lesion or malignancy. HPV mRNA E6/E7: NOT DETECTED This assay detects E6/E7 viral messenger RNA (mRNA) from 14 high-risk HPV types (16, 18, 31, 33, 35, 39, 45, 51, 52, 56, 58, 59, 66, 68) HPV testing performed by [employer], [place], [place]. See reference laboratory portion of the EMR for entire report. Clinical Information LMP: Postmenopausal Previous PAP test: Unknown date/findings Material Received ThinPrep-Vaginal/Cervical ----- ------- Signed (signature on file) JEROME Jimenez (ASCP) 07/12/23 0930 ----- ------- END OF REPORT us Lora GODINEZ LAB CYTOLOGY ORDERABLES Final Result [facility] [address] [place], [place] [phone] from Last 3 Months or Most Recently Relevant to Health Maintenance Insurance [facility] Care Teams Inside Meter Tester Relationship Specialty Start Date End Date Jayda Patiño MD [address] [place] [address] PCP - General Family Medicine 04/05/19
--- OUTSIDE RECORDS SUMMARY | 2025-03-05 15:40 | XMS_ITS | Encounter Summary ---
Author Organization [employer] Address [address] [place] [address] 7t [place] [address] Care Team Providers Care Hydrochloric Area Supervisor Name Role Phone Jayda Patiño MD Primary Care Provide r Reason for Visit * Reason Comments Med Refill Encounter Details Date Type Department Care Team ([facility] Contact Info) Description 05/27/2022 Refill [facility] [address] [place] [address] Lia Edwards FNP [address] [place] [address] Chronic right shoulder pain Social History Tobacco [...] Description 03/29/2025 1:00 PM EST Office Visit [facility] [address] [place] [address] Shama Barlow, OD [address] [place] [address] documented as of this encounter Visit Diagnoses Diagnosis Chronic right shoulder pain Pain in joint, shoulder region documented in this encounter Care Teams Hydrochloric Area Supervisor Relationship Specialty Start Date End Date Jayda Patiño MD [address] [place] [address] PCP - General Family Medicine 04/05/19 documented as of this encounter
--- OUTSIDE RECORDS SUMMARY | 2025-03-05 15:40 | XMS_ITS | Encounter Summary ---
Author Organization [employer] Address [address] [facility] 7t [place] [address] Care Team Providers Care Ict Support Technicians Name Role Phone Jayda Patiño MD Primary Care Provide r Reason for Visit * Reason Onset Date Comments Med Refill 10/08/2024 Encounter Details Date Type Department Care Team (Late st Contact Info) Description 10/08/2024 Refill [facility] [address] [place] [address] Jayda Patiño MD [address] [place] [address] Health care maintenance Social History Tobacco Use [...] PM EST Office Visit [facility] [address] [place] [address] Cain, Shama, OD [address] [place] [address] documented as of this encounter Visit Diagnoses Diagnosis Health care maintenance documented in this encounter Additional Health Concerns Assessment Noted Time PHQ-9 Depression Total Score: 0 07/13/19 25 1:37 PM EDT documented as of this encounter Care Teams Ict Support Technicians Relationship Specialty Start Date End Date Jayda Patiño MD [address] [place] [address] PCP - General Family Medicine 04/05/19 documented as of this encounter
--- OUTSIDE RECORDS SUMMARY | 2025-03-05 15:40 | XMS_ITS | Encounter Summary ---
Author Organization [employer] Address 75 [facility] 7 [place] [address] Care Team Providers Care Shot Polisher Name Role Phone Jayda Patiño MD Primary Care Provide r Reason for Visit * Reason Onset Date Comments Prior Auth Prescription 02/28/2025 PA: Anitha epbound Encounter Details Date Type Department Care Team ([facility] st Contact Info) Description 02/28/2025 Telephone [facility] MEDICINE [address] [place] [address] Jayda Patiño MD 230 [place] [address] Prior Auth Prescription ( PA: Hai) Social History Tobacco Use Types Packs/Day Years [...] encounter Miscellaneous Notes * Telephone Encounter - Katalina Price [place] - 03/04/2025 9:29 AM EST PA Approval for zepbound received and [facility]. * Telephone Encounter - Nan Bernard - 03/01/2025 11:09 AM EST PA for Zepbound was generated and sent to plan via FAX with supporting documentation. Confirmation was uploaded to Media. * Telephone Encounter - Lorenzo Richardson - 02/28/2025 10:50 AM EST Tc from pt requesting a PA for the medication Tirzepatide-Weight Management (Zepbound) 5 MG/0.5ML solution auto-injector Any questions contact pt at [phone] documented in this encounter Plan of Treatment Upcoming Encounters Date Type Department Care Team (Late st Contact Info) Description 03/29/2025 1:00 PM EST Office Visit [facility] OPTOMETRY [address] [place], [place] [phone] Shama Barlow, OD 230 [place], [place] [phone] documented as of this encounter Visit Diagnoses Not on filedocumented in this encounter Additional Health Concerns Assessment Noted Time PHQ-9 Depression Total Score: 5 01/24/20 25 2:37 PM EDT documented as of this encounter Care Teams Shot Polisher Relationship Specialty Start Date End Date Jayda Patiño MD 230 [place], [place] [phone] PCP - General Family Medicine 04/05/19 documented as of this encounter
--- OUTSIDE RECORDS SUMMARY | 2025-03-05 15:40 | XMS_ITS | Encounter Summary ---
Author Organization [employer] Address 75 [facility] 7t [place] [address] Care Team Providers Care Marketing Mgr Name Role Phone Jayda Patiño MD Primary Care Provide r Reason for Visit * Reason Comments Med Refill Encounter Details Date Type Department Care Team ([facility] st Contact Info) Description 07/26/2024 Refill [facility] MEDICINE [address] [place] [address] Jayda Patiño MD 230 [place] [address] Class 3 severe obesity due to excess [...] Description 03/29/2025 1:00 PM EST Office Visit [facility] OPTOMETRY [address] [place] [address] Shama Barlow, OD 230 [place] [address] documented as of this encounter Visit Diagnoses Diagnosis Class 3 severe obesity due to excess calories with serious comorbidity and body mass index (BMI) of 40.0 to 44.9 in adult (HCC) documented in this encounter Additional Health Concerns Assessment Noted Time PHQ-9 Depression Total Score: 0 07/13/19 25 1:37 PM EDT documented as of this encounter Care Teams Marketing Mgr Relationship Specialty Start Date End Date Jayda Patiño MD 230 [place] [address] PCP - General Family Medicine 04/05/19 documented as of this encounter
--- OUTSIDE RECORDS SUMMARY | 2025-03-05 15:40 | XMS_ITS | Encounter Summary ---
Author Organization [employer] Address 75 [facility] 7t [place] [address] Care Team Providers Care Side Show Entertainer Name Role Phone Jayda Patiño MD Primary Care Provide r Reason for Visit * Reason Comments Med Refill Encounter Details Date Type Department Care Team ([facility] st Contact Info) Description 04/29/2023 Refill [facility] MEDICINE 230 [place], [place] [phone] Name, MD Lorenzo 230 [place] [address] Hypertension, unspecified type Social History Tobacco Use [...] Description 03/29/2025 1:00 PM EST Office Visit [facility] OPTOMETRY [address] [place], [place] [phone] Shama Barlow, OD 230 [place] [address] documented as of this encounter Visit Diagnoses Diagnosis Hypertension, unspecified type documented in this encounter Additional Health Concerns Assessment Noted Time PHQ-9 Depression Total Score: 14 023 1:24 PM EDT documented as of this encounter Care Teams Side Show Entertainer Relationship Specialty Start Date End Date Jayda Patiño MD 230 [place] [address] PCP - General Family Medicine 04/05/19 documented as of this encounter
--- OUTSIDE RECORDS SUMMARY | 2025-03-05 15:40 | XMS_ITS | Encounter Summary ---
Author Organization [employer] Address 75 [facility] 7t [place] [address] Care Team Providers Care Try Out Person Name Role Phone Jayda Patiño MD Primary Care Provide r Reason for Visit * Reason Comments Med Refill Encounter Details Date Type Department Care Team ([facility] st Contact Info) Description 07/10/2024 Refill [facility] MEDICINE 230 [place] [address] Jayda Patiño MD 230 [place] [address] Hyperlipidemia, unspecified hyperlipidemia type; Hypertension, unspecified type; [...] Not at all 07/12/2024 1:37 PM Kimberly Danw [place] * Thoughts that you would be [...] Visit [facility] OPTOMETRY [address] [place] [address] Shama Barlow, OD 230 [place] [address] documented as of this encounter Visit Diagnoses Diagnosis Hyperlipidemia, unspecified hyperlipidemia type Hypertension, unspecified type Chronic migraine without aura without status migrainosus, not intractable documented in this encounter Additional Health Concerns Assessment Noted Time PHQ-9 Depression Total Score: 14 024 10:05 AM EST documented as of this encounter Care Teams Try Out Person Relationship Specialty Start Date End Date Jayda Patiño MD 230 [place] [address] PCP - General Family Medicine 04/05/19 documented as of this encounter
--- OUTSIDE RECORDS SUMMARY | 2025-03-05 15:40 | XMS_ITS | Encounter Summary ---
Author Organization [employer] [facility] Address [address] [place] [address] 7 [place] [address] Care Team Providers Care Patient Transportation Driver Name Role Phone Jayda Patiño MD Primary Care Provide r Reason for Visit * Reason Comments Med Refill Encounter Details Date Type Department Care Team (Late st Contact Info) Description 07/02/2022 Refill [facility] MEDICINE 230 [place] [address] Lissette White MD 230 [place] [address] Chronic rhinitis Social History Tobacco Use Types [...] Office Visit [facility] OPTOMETRY [address] [place] [address] Shama Barlow, OD 230 [place] [address] documented as of this encounter Visit Diagnoses Diagnosis Chronic rhinitis documented in this encounter Care Teams Patient Transportation Driver Relationship Specialty Start Date End Date Jayda Patiño MD 230 [place] [address] PCP - General Family Medicine 04/05/19 documented as of this encounter
--- OUTSIDE RECORDS SUMMARY | 2025-03-05 15:40 | XMS_ITS | Encounter Summary ---
Author Organization [employer] Address [address] [facility] [address] 7t [place] [address] Care Team Providers Care Car Salter Name Role Phone Jayda Patiño MD Primary Care Provide r Reason for Visit * Reason Comments Med Refill Encounter Details Date Type Department Care Team ([facility] st Contact Info) Description 03/24/2023 Refill [facility] MED & PEDS [address] [place], [place] [phone] Jayda Patiño MD 230 [place] [address] Vitamin D deficiency Social History Tobacco Use [...] Visit [facility] OPTOMETRY [address] [place], [place] [phone] Shama Barlow, OD 230 [place] [address] documented as of this encounter Visit Diagnoses Diagnosis Vitamin D deficiency documented in this encounter Additional Health Concerns Assessment Noted Time PHQ-9 Depression Total Score: 14 023 1:24 PM EDT documented as of this encounter Care Teams Car Salter Relationship Specialty Start Date End Date Jayda Patiño MD 230 [place] [address] PCP - General Family Medicine 04/05/19 documented as of this encounter
--- OUTSIDE RECORDS SUMMARY | 2025-03-05 15:40 | XMS_ITS | Encounter Summary ---
Author Organization [employer] Address 75 [facility] 7t [place] [address] Care Team Providers Care College Counselor Name Role Phone Jayda Patiño MD Primary Care Provide r Reason for Visit * Reason Comments Med Refill Encounter Details Date Type Department Care Team ([facility] st Contact Info) Description 11/12/2024 Refill [facility] MEDICINE [address] [place] [address] Jayda Patiño MD [address] [place] [address] Polyarthralgia Social History Tobacco Use Types Packs/Day [...] [facility] OPTOMETRY [address] [place] [address] Cain, Shama, OD 230 [place] [address] documented as of this encounter Visit Diagnoses Diagnosis Polyarthralgia Pain in joint, multiple sites documented in this encounter Additional Health Concerns Assessment Noted Time PHQ-9 Depression Total Score: 0 07/13/19 25 1:37 PM EDT documented as of this encounter Care Teams College Counselor Relationship Specialty Start Date End Date Jayda Patiño MD 230 [place] [address] PCP - General Family Medicine 04/05/19 documented as of this encounter
--- OUTSIDE RECORDS SUMMARY | 2025-03-05 15:40 | XMS_ITS | Encounter Summary ---
Author Organization [employer] Address [address] [place] [address] 7 [place] [address] Care Team Providers Care Employment Supervisor Name Role Phone Jayda Patiño MD Primary Care Provide r Reason for Visit * Reason Onset Date Comments Results 03/01/2025 Encounter Details Date Type Department Care Team ([facility] st Contact Info) Description 03/01/2025 Results Follow-Up [facility] 230 [place] [address] Jayda Patiño MD [address] [place] [address] Polysomnography Social History Tobacco Use Types Packs/Day Years [...] encounter Miscellaneous Notes * Telephone Encounter - Sophia Jimenez RN - 03/01/2025 1:23 PM EST TC placed to patient [phone] via [employer] (Drizly #[id number]) in regards to below message.Patient verbalized understanding and did not have any further questions. Patient to f/u PRN. ----- Message from Jayda Mcelroy MD sent at 03/01/2025 9:15 AM EST ----- Please let patient know I reviewed her sleep study but results was non diagnostic, she has an appointment with sleep medicine on 03/05/25 please advise not to miss her appointment thank you ----- Message ----- From: Dora Atkinson Sent: 02/27/2025 2:44 PM EST To: Jayda Mcelroy MD A new document has been added to this order with description POLYSOMNOGRAPHY REPORT 02/22/25. documented in this encounter Plan of Treatment Upcoming Encounters Date Type Department Care Team (Late st Contact Info) Description 03/29/2025 1:00 PM EST Office Visit [facility] OPTOMETRY [address] [place] [address] Shama Barlow, OD 230 [place] [address] documented as of this encounter Visit Diagnoses Not on filedocumented in this encounter Additional Health Concerns Assessment Noted Time PHQ-9 Depression Total Score: 5 01/24/20 25 2:37 PM EDT documented as of this encounter Care Teams Employment Supervisor Relationship Specialty Start Date End Date Jayda Patiño MD [address] [place], [place] [phone] PCP - General Family Medicine 04/05/19 documented as of this encounter
--- OUTSIDE RECORDS SUMMARY | 2025-03-05 15:40 | XMS_ITS | Encounter Summary ---
Author Organization [employer] Address [address] [facility] [address] 7t [place] [address] Care Team Providers Care Sharepoint Developer Name Role Phone Jayda Patiño MD Primary Care Provide r Encounter Details Date Type Department Care Team (Late st Contact Info) Description 07/24/2024 Orders Only [facility] CHC MED & PEDS [address] [place] [address] Provider, MD Jennie Social History Tobacco Use [...] 1:00 PM EST Office Visit [facility] OPTOMETRY [address] [place], [place] [phone] Cain, Shama, OD 230 [place] [address] documented as of this encounter Procedures Procedure [...] documented as of this encounter Care Teams Sharepoint Developer Relationship Specialty Start Date End Date Jayda Patiño MD 230 [place] [address] PCP - General Family Medicine 04/05/19 documented as of this encounter
--- OUTSIDE RECORDS SUMMARY | 2025-03-05 15:40 | XMS_ITS | Encounter Summary ---
Author Organization [employer] Address 75 [facility] 7t [place] [address] Care Team Providers Care Mental Health Social Worker Name Role Phone Jayda Patiño MD Primary Care Provide r Reason for Visit * Reason Comments Med Refill Encounter Details Date Type Department Care Team ([facility] st Contact Info) Description 03/26/2023 Refill [facility] MEDICINE 230 [place], [place] [phone] Name, MD Lorenzo 230 [place] [address] Hypertension, unspecified type Social History Tobacco Use [...] 03/29/2025 1:00 PM EST Office Visit [facility] OPTOMETRY [address] [place], [place] [phone] Shama Barlow, OD 230 [place] [address] documented as of this encounter Visit Diagnoses Diagnosis Hypertension, unspecified type documented in this encounter Additional Health Concerns Assessment Noted Time PHQ-9 Depression Total Score: 14 023 1:24 PM EDT documented as of this encounter Care Teams Mental Health Social Worker Relationship Specialty Start Date End Date Jayda Patiño MD 230 [place] [address] PCP - General Family Medicine 04/05/19 documented as of this encounter
--- OUTSIDE RECORDS SUMMARY | 2025-03-05 15:40 | XMS_ITS | Encounter Summary ---
Author Organization [employer] [facility] Address [address] [place] [address] 7 [place] [address] Care Team Providers Care Fashion Intern Name Role Phone Jayda Patiño MD Primary Care Provide r Reason for Visit * Reason Comments Med Refill Encounter Details Date Type Department Care Team (Late Contact Info) Description 08/13/2022 Refill [facility] MEDICINE [address] [place] [address] Lissette White MD 230 [place] [address] Chronic rhinitis Social History Tobacco Use Types [...] [facility] OPTOMETRY [address] [place] [address] Shama Barlow, OD 230 [place] [address] documented as of this encounter Visit Diagnoses Diagnosis Chronic rhinitis documented in this encounter Care Teams Fashion Intern Relationship Specialty Start Date End Date Jayda Patiño MD 230 [place] [address] PCP - General Family Medicine 04/05/19 documented as of this encounter
--- OUTSIDE RECORDS SUMMARY | 2025-03-05 15:40 | XMS_ITS | Encounter Summary ---
Author Organization [employer] Address 75 [facility] 7t [place] [address] Care Team Providers Care Biotechnician Name Role Phone Jayda Patiño MD Primary Care Provide r Reason for Visit * Reason Comments Med Refill Encounter Details Date Type Department Care Team ([facility] st Contact Info) Description 08/22/2024 Refill [facility] MEDICINE [address] [place] [address] Jayda Patiño MD 230 [place] [address] Pain of left heel Social History Tobacco [...] 03/29/2025 1:00 PM EST Office Visit [facility] OPTOMETRY [address] [place] [address] Cain, Shama, OD 230 [place] [address] documented as of this encounter Visit Diagnoses Diagnosis Pain of left heel documented in this encounter Additional Health Concerns Assessment Noted Time PHQ-9 Depression Total Score: 0 07/13/19 25 1:37 PM EDT documented as of this encounter Care Teams Biotechnician Relationship Specialty Start Date End Date Jayda Patiño MD 230 [place] [address] PCP - General Family Medicine 04/05/19 documented as of this encounter
--- OUTSIDE RECORDS SUMMARY | 2025-03-05 15:40 | XMS_ITS | Encounter Summary ---
Author Organization [employer] Address 75 [facility] 7t [place] [address] Care Team Providers Care Tinsmith Apprentice Name Role Phone Jayda Patiño MD Primary Care Provide r Reason for Visit * Reason Comments Med Refill Encounter Details Date Type Department Care Team ([facility] st Contact Info) Description 11/05/2024 Refill [facility] 230 [place] [address] Jayda Patiño MD [address] [place] [address] Polyarthralgia; Migraine without aura, not refractory Social [...] PM EST Office Visit [facility] OPTOMETRY [address] [place] [address] Cain, Shama, OD 230 [place] [address] documented as of this encounter Visit Diagnoses Diagnosis Polyarthralgia Pain in joint, multiple sites Migraine without aura, not refractory documented in this encounter Additional Health Concerns Assessment Noted Time PHQ-9 Depression Total Score: 0 07/13/19 25 1:37 PM EDT documented as of this encounter Care Teams Tinsmith Apprentice Relationship Specialty Start Date End Date Jayda Patiño MD 230 [place] [address] PCP - General Family Medicine 04/05/19 documented as of this encounter
--- OUTSIDE RECORDS SUMMARY | 2025-03-05 15:40 | XMS_ITS | Encounter Summary ---
Author Organization [employer] [facility] Address [address] [place] [address] 7t [place] [address] Care Team Providers Care Manager Cardiac Cath Name Role Phone Jayda Patiño MD Primary Care Provide r Reason for Visit * Reason Comments Med Refill Encounter Details Date Type Department Care Team (Late st Contact Info) Description 05/22/[address] [facility] 230 [place] [address] Celena Farias DO 230 [place] [address] Hypertension, unspecified type Social History Tobacco Use [...] 03/29/2025 1:00 PM EST Office Visit [facility] OPTOMETRY [address] [place], [place] [phone] Shama Barlow, OD [address] [place] [address] documented as of this encounter Visit Diagnoses Diagnosis Hypertension, unspecified type documented in this encounter Care Teams Manager Cardiac Cath Relationship Specialty Start Date End Date Jayda Patiño MD 230 [place] [address] PCP - General Family Medicine 04/05/19 documented as of this encounter
--- OUTSIDE RECORDS SUMMARY | 2025-03-05 15:40 | XMS_ITS | Encounter Summary ---
Author Organization [employer] Address 75 [facility] 7t [place] [address] Care Team Providers Care Remote Sensing Advisor Name Role Phone Jayda Patiño MD Primary Care Provide r Reason for Visit * Reason Comments Med Refill Encounter Details Date Type Department Care Team ([facility] st Contact Info) Description 07/07/2023 Refill [facility] MEDICINE 230 [place] [address] Jayda Patiño MD [address] [place] [address] Health care maintenance Social History Tobacco Use [...] 03/29/2025 1:00 PM EST Office Visit [facility] OPTOMETRY [address] [place], [place] [phone] Cain, Shama, OD 230 [place] [address] documented as of this encounter Visit Diagnoses Diagnosis Health care maintenance documented in this encounter Additional Health Concerns Assessment Noted Time PHQ-9 Depression Total Score: 14 024 10:05 AM EST documented as of this encounter Care Teams Remote Sensing Advisor Relationship Specialty Start Date End Date Jayda Patiño MD 230 [place], [place] [phone] PCP - General Family Medicine 04/05/19 documented as of this encounter
--- OUTSIDE RECORDS SUMMARY | 2025-03-05 15:40 | XMS_ITS | Encounter Summary ---
Author Organization [employer] Address 75 [facility] 7t [place] [address] Care Team Providers Care Overhead Distribution Engineer Name Role Phone Jayda Patiño MD Primary Care Provide r Reason for Visit * Reason Comments Med Refill Encounter Details Date Type Department Care Team ([facility] st Contact Info) Description 04/04/[address] [facility] MEDICINE 230 [place], [place] [phone] Marilee Whittaker MD 230 [place], [place] [phone] Chronic migraine without aura without status migrainosus, [...] 03/29/2025 1:00 PM EST Office Visit [facility] OPTOMETRY [address] [place], [place] [phone] Shama Barlow, OD 230 [place] [address] documented as of this encounter Visit Diagnoses Diagnosis Chronic migraine without aura without status migrainosus, not intractable documented in this encounter Additional Health Concerns Assessment Noted Time PHQ-9 Depression Total Score: 14 023 1:24 PM EDT documented as of this encounter Care Teams Overhead Distribution Engineer Relationship Specialty Start Date End Date Jayda Patiño MD 230 [place] [address] PCP - General Family Medicine 04/05/19 documented as of this encounter
--- OUTSIDE RECORDS SUMMARY | 2025-03-05 15:40 | XMS_ITS | Encounter Summary ---
Author Organization [employer] Address [address] [place] [address] 7t [place] [address] Care Team Providers Care M1 Armor Crewman Name Role Phone Jayda Patiño MD Primary Care Provide r Reason for Visit * Reason Comments Med Refill Encounter Details Date Type Department Care Team ([facility] Contact Info) Description 07/02/2022 Refill [facility] MEDICINE 230 [place] [address] Lia Edwards FNP [address] [place] [address] Chronic right shoulder pain Social History Tobacco [...] 03/29/2025 1:00 PM EST Office Visit [facility] OPTOMETRY [address] [place] [address] Shama Barlow, OD 230 [place] [address] documented as of this encounter Visit Diagnoses Diagnosis Chronic right shoulder pain Pain in joint, shoulder region documented in this encounter Care Teams M1 Armor Crewman Relationship Specialty Start Date End Date Jayda Patiño MD 230 [place] [address] PCP - General Family Medicine 04/05/19 documented as of this encounter
--- OUTSIDE RECORDS SUMMARY | 2025-03-05 15:40 | XMS_ITS | Encounter Summary ---
Author Organization [employer] Address 75 [facility] 7t [place] [address] Care Team Providers Care Transit Manager Name Role Phone Jayda Patiño MD Primary Care Provide r Reason for Visit * Reason Comments Med Refill Encounter Details Date Type Department Care Team ([facility] st Contact Info) Description 10/12/2024 Refill [facility] MEDICINE 230 [place] [address] Celena Farias DO 230 [place] [address] Polyarthralgia Social History Tobacco Use Types Packs/Day [facility] [address] [place] [address] Cain, Shama, OD [address] [place] [address] documented as of this encounter Visit Diagnoses Diagnosis Polyarthralgia Pain in joint, multiple sites documented in this encounter Additional Health Concerns Assessment Noted Time PHQ-9 Depression Total Score: 0 07/13/19 25 1:37 PM EDT documented as of this encounter Care Teams Transit Manager Relationship Specialty Start Date End Date Jayda Patiño MD 230 [place] [address] PCP - General Family Medicine 04/05/19 documented as of this encounter
--- OUTSIDE RECORDS SUMMARY | 2025-03-05 15:41 | XMS_ITS | Encounter Summary ---
Author Organization [employer] Address [address] [facility] 7t [place] [address] Care Team Providers Care Agency Legal Counsel Name Role Phone Jayda Patiño MD Primary Care Provide r Reason for Visit * Reason Comments Med Refill Encounter Details Date Type Department Care Team ([facility] st Contact Info) Description 09/06/2022 Refill [facility] MEDICINE [address] [place] [address] Jayda Patiño MD 230 [place] [address] Chronic right shoulder pain Social History Tobacco [...] Description 03/29/2025 1:00 PM EST Office Visit [facility] OPTOMETRY [address] [place] [address] Shama Barlow, OD 230 [place] [address] documented as of this encounter Visit Diagnoses Diagnosis Chronic right shoulder pain Pain in joint, shoulder region documented in this encounter Additional Health Concerns Assessment Noted Time PHQ-9 Depression Total Score: 14 023 1:24 PM EDT documented as of this encounter Care Teams Agency Legal Counsel Relationship Specialty Start Date End Date Jayda Patiño MD 230 [place] [address] PCP - General Family Medicine 04/05/19 documented as of this encounter
--- OUTSIDE RECORDS SUMMARY | 2025-03-05 15:41 | XMS_ITS | Encounter Summary ---
Author Organization [employer] Address [address] [facility] 7t [place] [address] Care Team Providers Care Clarifier Name Role Phone Jayda Patiño MD Primary Care Provide r Reason for Visit * Reason Comments Med Refill Encounter Details Date Type Department Care Team ([facility] st Contact Info) Description 01/13/2025 Refill [facility] MEDICINE 230 [place] [address] Jayda Patiño MD 230 [place] [address] Chronic migraine without aura without status migrainosus, [...] Visit [facility] OPTOMETRY [address] [place] [address] Shama Barlow, OD 230 [place] [address] documented as of this encounter Visit Diagnoses Diagnosis Chronic migraine without aura without status migrainosus, not intractable Hyperlipidemia, unspecified hyperlipidemia type Polyarthralgia Pain in joint, multiple sites Health care maintenance documented in this encounter Additional Health Concerns Assessment Noted Time PHQ-9 Depression Total Score: 0 07/13/19 25 1:37 PM EDT documented as of this encounter Care Teams Clarifier Relationship Specialty Start Date End Date Jayda Patiño MD 230 [place] [address] PCP - General Family Medicine 04/05/19 documented as of this encounter
--- OUTSIDE RECORDS SUMMARY | 2025-03-05 15:41 | XMS_ITS | Encounter Summary ---
Author Organization [employer] Address [address] [facility] 7t [place] [address] Care Team Providers Care Supply Crib Attendant Name Role Phone Jayda Patiño MD Primary Care Provide r Reason for Visit * Reason Comments Med Refill Encounter Details Date Type Department Care Team ([facility] st Contact Info) Description 09/09/2024 Refill [facility] MEDICINE [address] [place] [address] Jayda Patiño MD 230 [place] [address] Chronic bilateral low back pain without sciatica [...] EST Office Visit [facility] OPTOMETRY [address] [place] [address] Cain, Shama, OD 230 [place] [address] documented as of this encounter Visit Diagnoses Diagnosis Chronic bilateral low back pain without sciatica documented in this encounter Additional Health Concerns Assessment Noted Time PHQ-9 Depression Total Score: 0 07/13/19 25 1:37 PM EDT documented as of this encounter Care Teams Supply Crib Attendant Relationship Specialty Start Date End Date Jayda Patiño MD 230 [place] [address] PCP - General Family Medicine 04/05/19 documented as of this encounter
--- OUTSIDE RECORDS SUMMARY | 2025-03-05 15:41 | XMS_ITS | Encounter Summary ---
Author Organization [employer] Address [address] [facility] 7t [place] [address] Care Team Providers Care Business Objects Architect Name Role Phone Jayda Patiño MD Primary Care Provide r Reason for Visit * Reason Comments Med Refill Encounter Details Date Type Department Care Team ([facility] st Contact Info) Description 01/13/2025 Refill [facility] MEDICINE 230 [place] [address] Celena Farias DO 230 [place] [address] Chronic rhinitis Social History Tobacco Use Types [...] Description 03/29/2025 1:00 PM EST Office Visit [facility] OPTOMETRY [address] [place] [address] Cain, Shama, OD 230 [place] [address] documented as of this encounter Visit Diagnoses Diagnosis Chronic rhinitis documented in this encounter Additional Health Concerns Assessment Noted Time PHQ-9 Depression Total Score: 0 07/13/19 25 1:37 PM EDT documented as of this encounter Care Teams Business Objects Architect Relationship Specialty Start Date End Date Jayda Patiño MD 230 [place] [address] PCP - General Family Medicine 04/05/19 documented as of this encounter
--- OUTSIDE RECORDS SUMMARY | 2025-03-05 15:41 | XMS_ITS | Encounter Summary ---
Author Organization [employer] Address [address] [facility] [address] 7t [place] [address] Care Team Providers Care Hr Payroll Coordinator Name Role Phone Jayda Patiño MD Primary Care Provide r Reason for Visit * Reason Comments Med Refill Encounter Details Date Type Department Care Team ([facility] st Contact Info) Description 01/13/2025 Refill [facility] MED & PEDS [address] [place], [place] [phone] [facility] 230 [place] [address] Vitamin D deficiency Social History Tobacco Use [...] 1:00 PM EST Office Visit [facility] OPTOMETRY [address] [place] [address] Cain, Shama, OD 230 [place] [address] documented as of this encounter Visit Diagnoses Diagnosis Vitamin D deficiency documented in this encounter Additional Health Concerns Assessment Noted Time PHQ-9 Depression Total Score: 0 07/13/19 25 1:37 PM EDT documented as of this encounter Care Teams Hr Payroll Coordinator Relationship Specialty Start Date End Date Jayda Patiño MD 230 [place] [address] PCP - General Family Medicine 04/05/19 documented as of this encounter
--- OUTSIDE RECORDS SUMMARY | 2025-03-05 15:41 | XMS_ITS | Encounter Summary ---
Author Organization [employer] Address [address] [place] [address] 7 [place] [address] Care Team Providers Care Pony Edger Name Role Phone Jayda Patiño MD Primary Care Provide r Reason for Visit * Reason Comments Med Refill Encounter Details Date Type Department Care Team (Late st Contact Info) Description 12/31/[address] [facility] MEDICINE 230 [place] [address] Adela Denney FNP Health care maintenance Social [...] 03/29/2025 1:00 PM EST Office Visit [facility] OPTOMETRY [address] [place] [address] Shama Barlow, OD 230 [place] [address] documented as of this encounter Visit Diagnoses Diagnosis Health care maintenance documented in this encounter Additional Health Concerns Assessment Noted Time PHQ-9 Depression Total Score: 14 023 1:24 PM EDT documented as of this encounter Care Teams Pony Edger Relationship Specialty Start Date End Date Jayda Patiño MD [address] [place] [address] PCP - General Family Medicine 04/05/19 documented as of this encounter
--- OUTSIDE RECORDS SUMMARY | 2025-03-05 15:41 | XMS_ITS | Encounter Summary ---
Author Organization [employer] Address [address] [facility] [address] 7[address] [place] [address] Care Team Providers Care Engineering Specialist Name Role Phone Jayda Patiño MD Primary Care Provide r Reason for Visit * Reason Comments Med Refill Encounter Details Date Type Department Care Team ([facility] st Contact Info) Description 10/02/2024 Refill [facility] MED & PEDS [address] [place] [address] Jayda Patiño MD 230 [place] [address] Chronic rhinitis Social History Tobacco Use Types [...] Description 03/29/2025 1:00 PM EST Office Visit [facility] OPTOMETRY [address] [place] [address] Cain, Shama, OD 230 [place] [address] documented as of this encounter Visit Diagnoses Diagnosis Chronic rhinitis documented in this encounter Additional Health Concerns Assessment Noted Time PHQ-9 Depression Total Score: 0 07/13/19 25 1:37 PM EDT documented as of this encounter Care Teams Engineering Specialist Relationship Specialty Start Date End Date Jayda Patiño MD 230 [place] [address] PCP - General Family Medicine 04/05/19 documented as of this encounter
--- OUTSIDE RECORDS SUMMARY | 2025-03-05 15:41 | XMS_ITS | Encounter Summary ---
Author Organization [employer] [facility] Address [address] [place] [address] 7t [place] [address] Care Team Providers Care Title Lawyer Name Role Phone Jayda Patiño MD Primary Care Provide r Reason for Visit * Reason Comments Med Refill Encounter Details Date Type Department Care Team ([facility] Contact Info) Description 09/25/2022 Refill [facility] MEDICINE [address] [place] [address] Jayda Patiño MD [address] [place] [address] Chronic right shoulder pain Social History Tobacco [...] Upcoming Encounters Date Type Department Care Team ([facility] Contact Info) Description 03/29/2025 1:00 PM EST Office Visit [facility] OPTOMETRY [address] [place] [address] Cain, Shama, OD 230 [place], [place] [phone] documented as of this encounter Visit Diagnoses Diagnosis Chronic right shoulder pain Pain in joint, shoulder region documented in this encounter Additional Health Concerns Assessment Noted Time PHQ-9 Depression Total Score: 14 023 1:24 PM EDT documented as of this encounter Care Teams Title Lawyer Relationship Specialty Start Date End Date Jayda Patiño MD [address] [place] [address] PCP - General Family Medicine 04/05/19 documented as of this encounter
--- OUTSIDE RECORDS SUMMARY | 2025-03-05 15:41 | XMS_ITS | Encounter Summary ---
Author Organization [employer] [facility] Address [address] [place] [address] 7 [place] [address] Care Team Providers Care Business Taxes Specialist Name Role Phone Jayda Patiño MD Primary Care Provide r Reason for Visit * Reason Comments Med Refill Encounter Details Date Type Department Care Team (Late Contact Info) Description 08/30/2022 Refill [facility] MEDICINE [address] [place] [address] Jayda Patiño MD [address] [place] [address] Chronic right shoulder pain Social History Tobacco [...] EST Office Visit [facility] OPTOMETRY [address] [place] [address] Shama Barlow, EMI 230 [place] [address] documented as of this encounter Visit Diagnoses Diagnosis Chronic right shoulder pain Pain in joint, shoulder region documented in this encounter Care Teams Business Taxes Specialist Relationship Specialty Start Date End Date Jayda Patiño MD 230 [place] [address] PCP - General Family Medicine 04/05/19 documented as of this encounter
--- OUTSIDE RECORDS SUMMARY | 2025-03-05 15:41 | XMS_ITS | Encounter Summary ---
Author Organization [employer] Address [address] [place] [address] 7 [place] [address] Care Team Providers Care College Administrator Name Role Phone Jayda Patiño MD Primary Care Provide r Reason for Visit * Reason Comments Med Refill Encounter Details Date Type Department Care Team (Late Contact Info) Description 12/04/2022 Refill [facility] MEDICINE [address] [place] [address] Jayda Patiño MD 230 [place] [address] Gastro-esophageal reflux disease without esophagitis Social History [...] [facility] OPTOMETRY [address] [place] [address] Cain, Shama, OD 230 [place] [address] documented as of this encounter Visit Diagnoses Diagnosis Gastro-esophageal reflux disease without esophagitis documented in this encounter Additional Health Concerns Assessment Noted Time PHQ-9 Depression Total Score: 14 023 1:24 PM EDT documented as of this encounter Care Teams College Administrator Relationship Specialty Start Date End Date Jayda Patiño MD 230 [place] [address] PCP - General Family Medicine 04/05/19 documented as of this encounter
--- OUTSIDE RECORDS SUMMARY | 2025-03-05 15:41 | XMS_ITS | Encounter Summary ---
Author Organization [employer] Address [address] [place] [address] 7 [place] [address] Care Team Providers Care Marine Drafter Name Role Phone Jayda Patiño MD Primary Care Provide r Reason for Visit * Reason Comments Med Refill Encounter Details Date Type Department Care Team (Late st Contact Info) Description 10/22/2022 Refill [facility] [address] [place] [address] [facility] 230 [place] [address] Hypertension, unspecified type Social History Tobacco Use [...] EST Office Visit [facility] OPTOMETRY [address] [place] [address] Cain, Shama, OD 230 [place] [address] documented as of this encounter Visit Diagnoses Diagnosis Hypertension, unspecified type documented in this encounter Additional Health Concerns Assessment Noted Time PHQ-9 Depression Total Score: 14 023 1:24 PM EDT documented as of this encounter Care Teams Marine Drafter Relationship Specialty Start Date End Date Jayda Patiño MD 230 [place] [address] PCP - General Family Medicine 04/05/19 documented as of this encounter
== END 2025-03-05 15:47 | disposition home or self-care (01) ==
LOC: HO.HSMS 14:01
PROVIDERS: PCP Internal Medicine; Visit Provider Physician Assistant Medical
DX: G47.19 Other hypersomnia (principal); R06.83 Snoring
CPT/HCPCS: 99204

== ENCOUNTER → 2025-03-05 14:00 | Outpatient (BNVA) | payer MEDICAID, SELFPAY | PROVIDERS: PCP Internal Medicine; Visit Provider Physician Assistant Medical | DX: G47.33 Obstructive sleep apnea (adult) (pediatric) (principal); G47.19 Other hypersomnia; R06.83 Snoring | CPT/HCPCS: 99212 ==

== ENCOUNTER → 2025-03-18 10:08 | Outpatient (REF) | payer MEDICAID, SELFPAY ==
--- OUTSIDE RECORDS SUMMARY | 2025-03-18 12:18 | XMS_ITS | Clinical Summary ---
Author Organization [employer] [facility] Address [address] [place] [address] Care Team Providers Care Chief Operator Synthesis Name Role Phone Jayda Patiño MD Primary Care Provide r Surgical History Surgery Date Site/Laterality Comments BUNIONECTOMY 2014 Left PROCEDURE: AL CORRJ HLX VLGS BNCTY SESMDC W/DOUBLE OSTEOTOMY OTHER SURGICAL HISTORY 12/28/12 PROCEDURE: OUTSIDE PAP SMEAR TUBAL LIGATION PROCEDURE: HISTORICAL TUBAL LIGATION EYE SURGERY Left PROCEDURE: HISTORICAL EYE SURGERY; COMMENT: EYELID CERVICAL BIOPSY W/ LOOP ELECTRODE EXCISION PROCEDURE: AL CONIZATION CERVIX W/WO D&C RPR ELTRD EXC; [...] age to complete this topic Care Teams Chief Operator Synthesis Relationship Specialty Start Date End Date Jayda Patiño MD [address] [place] [phone] PCP - General 06/16/23
== END ==
LOC: HO.SL 10:08
PROVIDERS: PCP Internal Medicine; Visit Provider Physician Assistant Medical
DX: G47.19 Other hypersomnia (principal); G47.33 Obstructive sleep apnea (adult) (pediatric)
CPT/HCPCS: 95806

== ENCOUNTER → 2025-03-18 10:17 | Outpatient (BNV) | payer MEDICAID, SELFPAY | PROVIDERS: PCP Internal Medicine; Visit Provider Psychiatry & Neurology Neurology | DX: G47.33 Obstructive sleep apnea (adult) (pediatric) (principal) | CPT/HCPCS: 95806 ==